=== PATIENT | male | born 1975 | race Caucasian/White ===

== ENCOUNTER 2019-02-14 23:52 | Observation (INO) | payer OTHER ==
[~2019-02-14] VITALS: Ht 182.9 cm; Wt 96.4 kg
--- NOTE | ~2019-02-14 | DS ---
[facility] [address], [place] [address] Draft ADMISSION DATE: 02/14/2019 DISCHARGE DATE: 02/17/2019 REASON FOR ADMISSION: This 43-year-old man presented to the emergency room late in the night with severe unrelenting left upper abdominal pain with onset only a few hours prior to his presentation to emergency room. He was evaluated by Dr. Aguirre. A CT scan, which showed internal hernia or volvulus of small bowel. The patient has complex past medical history of neurologic deficits, particularly of the right upper extremity related to cervical spine surgery in the past year at [facility] in the [facility]. During the course of his treatment, he developed C difficile colitis requiring emergent subtotal colectomy with ileostomy, subsequently undergoing takedown of the ileostomy to an ileosigmoid anastomosis. PHYSICAL EXAMINATION: GENERAL: This is a relatively thin man, who looks to be in moderate distress. CHEST: Clear. HEART: Regular. ABDOMEN: There was tenderness in the left upper abdomen. He had no ascites. A keloid like mid abdominal scar was noted. DIAGNOSTIC DATA: CT scan was reviewed showing a segmental volvulus in the left upper abdomen of small bowel. There was apparent absence of much of the colon except for the rectum and sigmoid. HOSPITAL COURSE: He was fluid resuscitated, given limited antibiotic of Ancef and Flagyl, and underwent emergency laparotomy at approximately 3 a.m. He was found to have an internal hernia with torsion of the small bowel and associated adhesions, which were minimal. A large mesenteric defect of small bowel and left colonic mesentery was noted, which contributed to the internal hernia. It is clear there was no attempt to close the mesenteric defect. An attempt to close the mesenteric defect at that point was impossible as the angulation of the ileum in relation to the colon for anastomosis was such that closure of the mesentery would result in torsion and obstruction of the anastomosis itself. On that basis, he underwent segmental resection of the small bowel and colon (the anastomosis) with an end-to-end ileo left colostomy. Closure of the mesenteric defect was then able to be undertaken and it was without problem. The remaining abdomen was essentially normal. PATIENT NAME: SHANE HORTON DISCHARGE SUMMARY DATE OF : 71 REPORT #: [id number] PHYSICIAN: SHANE BECKMAN MD PCP: RADHA SORIANO MD REPORT IS CONFIDENTIAL AND NOT TO BE RELEASED WITHOUT AUTHORIZATION [facility] [address], [place] [address] Draft He had prompt recovery following this. He was begun on clear liquid diets immediately, which he tolerated and was advanced as tolerated ultimately to solid diet, which he has tolerated well. He has had bowel movements. His incision was healing well. No drain was placed at the time of operation. By time of discharge, he was ambulating well, tolerating a regular diet, oral analgesics, and doing well. FOLLOWUP PLANS: He is to return to see [facility] in [facility] a [facility]. DISCHARGE MEDICATIONS: 1. Motrin 600 mg p.o. q.6 hours as needed for pain, #60. 2. Carlisle 5/325 1-2 p.o. q.6 hours as needed for pain, #10. 3. Tylenol Extra Strength 500 mg two tablets p.o. q.6 hours as needed for pain. He will resume his usual medications includin. Gabapentin 600 mg p.o. t.i.d. 2. Culturelle probiotic one p.o. t.i.d. 3. Omeprazole 20 mg p.o. daily. 4. Paxil 10 mg p.o. daily. 5. Benadryl 25 mg 1-2 caps t.i.d. as needed for allergies. DISCHARGE DIAGNOSES: 1. Acute torsion of small bowel related to large mesenteric defect of prior ileo left-sided anastomosis following subtotal colectomy and takedown of ileostomy. 2. Anxiety disorder. 3. Gastroesophageal reflux. 4. History of severe Clostridium difficile colitis requiring subtotal colectomy. MD TRISHA Perez/MARIELLEL /[id number] cc: MD Dr. Timothy Helms PATIENT NAME: SHANE HORTON DISCHARGE SUMMARY DATE OF : 71 REPORT #: [id number] PHYSICIAN: SHANE BECKMAN MD PCP: RADHA SORIANO MD REPORT IS CONFIDENTIAL AND NOT TO BE RELEASED WITHOUT AUTHORIZATION [facility] [address] [place] [address] [place], [place] [address] [place] [facility] Copies: DEL HOPKINS MD ~ PATIENT NAME: SHANE HORTON DISCHARGE SUMMARY DATE OF : 71 REPORT #: [id number] PHYSICIAN: SHANE BECKMAN MD PCP: RADHA SORIANO MD REPORT IS CONFIDENTIAL AND NOT TO BE RELEASED WITHOUT AUTHORIZATION
--- OUTSIDE RECORDS SUMMARY | ~2019-02-14 | XMS | Clinical Summary ---
Demographics + + + | Address | [address] [place] [address] | | | [place] [address] | + + + | Home Phone | | + + + | Preferred Language | Unknown | + + + | Marital Status | Unknown | + + + | Orthodox Affiliation | Unknown | + + + | Race | Unknown | + + + | Ethnic Group | Unknown | + + + Author + + + | Author | [facility] | | | and [place] | + + + | Organization | [facility] | | | and [place] | + + + | Address | Unknown | + + + | Phone | Unavailable | + + + Support + + +---------+ + | Name | Relationship | Address | Phone | + + +---------+ + | Provided None | ECON | Unknown | | + + +---------+ + Care Team Providers + +------+ + | Care Resident Care Assistant Name | Role | Phone | + +------+ + | No, Physician | PCP | Unavailable | + +------+ + Allergies No Known Allergies Medications + + + +---------+------+------+-------+ | Medication | Sig | Dispensed | Refills | Star | End | Statu | | | | | | t | Date | s | | | | | | Date | | | + + + +---------+------+------+-------+ | omeprazole | Take 20 mg by mouth | | 0 | 09/0 | | Activ | | (PRILOSEC) 20 mg | every morning before | | | 5/20 | | e | | capsule | breakfast. | | | 17 | | | + + + +---------+------+------+-------+ | nortriptyline | Take 25 mg by mouth | | 0 | 01/1 | | Activ | | (PAMELOR) 25 mg | nightly. | | | 8/20 | | e | | capsule | | | | 19 | | | + + + +---------+------+------+-------+ | capsaicin | Apply topically 2 | | 0 | 01/1 | | Activ | | (ZOSTRIX) 0.025% | (two) times daily. | | | 8/20 | | e | | cream | | | | 19 | | | + + + +---------+------+------+-------+ | tamsulosin | Take 1 capsule by | 30 | 0 | 03/0 | | Activ | | (FLOMAX) 0.4 mg CAPS | mouth After dinner. | capsule | | 5/20 | | e | | | | | | 19 | | | + + + +---------+------+------+-------+ +---+ + | | Additional | | | informationPatient | | | not taking. Reason: | | | not taking, Reported | | | on 02/01/2019 12:02 | | | PM | +---+ + + + +--------+---+------+------+-------+ | gabapentin | Take 1 tablet by | 60 | 0 | 03/0 | 03/0 | Activ | | (NEURONTIN) 600 MG | mouth 2 (two) times | tablet | | 5/20 | 4/20 | e | | tablet | daily. | | | 19 | 20 | | + + +--------+---+------+------+-------+ | traMADol (ULTRAM) | Take 50 mg by mouth | | 0 | 05/2 | | Activ | | 50 mg tablet | every 6 (six) hours | | | 9/20 | | e | | | as needed for Pain. | | | 19 | | | + + +--------+---+------+------+-------+ | baclofen | Take 10 mg by mouth | | 0 | 05/2 | | Activ | | (LIORESAL) 10 mg | 3 (three) times | | | 9/20 | | e | | tablet | daily. | | | 19 | | | + + +--------+---+------+------+-------+ | diphenhydrAMINE | Take 50 mg by mouth | | 0 | | | Activ | | (BENADRYL) 50 mg | every 6 hours as | | | | | e | | capsule | needed for Itching. | | | | | | + + +--------+---+------+------+-------+ Active Problems + + + | Problem | Noted Date | + + + | Sepsis | 04/24/2018 | + + + | Infectious colitis | 04/24/2018 | + + + | Cervical myelopathy | 04/21/2018 | + + + | S/P laminectomy | 04/21/2018 | + + + | DDD (degenerative disc disease), cervical | 11/04/2016 | + + + | Muscle weakness of upper extremity | 11/04/2016 | + + + | Bilateral carpal tunnel syndrome | 08/26/2016 | + + + Encounters +--------+ + + + + | Date | Type | Specialty | Care Team | Description | +--------+ + + + + | 02/01/ | Hospital | Radiology | Tawana Gan, | Weakness; Muscle | | 2018 | Encounter | | REGISTERED NURSE TEACHER | weakness | | | | | | (generalized); | | | | | | Acquired diplegia | | | | | | (HCC) | +--------+ + + + + | 02/01/ | Hospital | Radiology | Tawana Gan, | Weakness; Muscle | | 2018 | Encounter | | REGISTERED NURSE TEACHER 1, [facility] | weakness | | | | | Nurse Radiologist, | (generalized); | | | | | [facility] | Acquired diplegia | | | | | | (HCC) | +--------+ + + + + | 01/31/ | Telephone | Radiology | Tamica Nguyen, | | | 2018 | | | RN | | +--------+ + + + + from Last 3 Months Immunizations + + + + | Name | Administration Dates | Next Due | + + + + | INFLUENZA PF | 04/22/2018 | | | QUAD(PED/ADOL/ADULT) | | | | ,PSKT or VIAL | | | + + + + | PNEUMOCOCCAL | 04/20/2018 | | | POLYSACCHARIDE | | | | 23-VALENT (PPSV23) | | | + + + + Family History + + +------+ + | Medical History | Relation | Name | Comments | + + +------+ + | Other (see comment) | Father | | Other (see comments) - Brain tumor | + + +------+ + | Cancer | Other | | | + + +------+ + | Diabetes | Other | | | + + +------+ + + +------+ + + | Relation | Name | Status | Comments | + +------+ + + | Father | | | | + +------+ + + | Mother | | Alive | | + +------+ + + | Other | | | | + +------+ + + | Other | | | | + +------+ + + Social History + +-------+ +--------+------+ | Tobacco Use | Types | Packs/Day | Years | Date | | | | | Used | | + +-------+ +--------+------+ | Former Smoker | | | | | + +-------+ +--------+------+ + +---+---+---+ | Smokeless Tobacco: | | | | | Former User | | | | + +---+---+---+ + + | Comments: quit 2001 | + + + + +---------+ + | Alcohol Use | Drinks/Week | oz/Week | Comments | + + +---------+ + | Not Currently | | | | + + +---------+ + + + + | Sex Assigned at | Date Recorded | | | | + + + | Not on file | | + + + + + + + | Job Start Date | Occupation | Industry | + + + + | Not on file | Not on file | Not on file | + + + + + + + + | Travel History | Travel Start | Travel End | + + + + + + | No recent travel history available. | + + Last Filed Vital Signs + + + + + | Vital Sign | Reading | Time Taken | Comments | + + + + + | Blood Pressure | 109/68 | 02/01/2019 2:00 PM | | | | | PST | | + + + + + | Pulse | 74 | 02/01/2019 2:00 PM | | | | | PST | | + + + + + | Temperature | 36.8 C (98.2 F) | 02/01/2019 11:50 AM | | | | | PST | | + + + + + | Respiratory Rate | 16 | 02/01/2019 2:00 PM | | | | | PST | | + + + + + | Oxygen Saturation | 100% | 02/01/2019 2:00 PM | | | | | PST | | + + + + + | Inhaled Oxygen | - | - | | | Concentration | | | | + + + + + | Weight | 91.9 kg (202 lb 9.6 | 10/18/2018 4:58 AM | | | | oz) | PDT | | + + + + + | Height | 182.9 cm (6') | 10/17/2018 9:52 AM | | | | | PDT | | + + + + + | Body Mass Index | 27.48 | 10/17/2018 9:52 AM | | | | | PDT | | + + + + + Plan of Treatment + + + + + | Health Maintenance | Due Date | Last Done | Comments | + + + + + | Vaccine: | | | | | Dtap/Tdap/Td (1 - | 3 | | | | Tdap) | | | | + + + + + | Statin Therapy | | | | | (optimal intensity) | 9 | | | + + + + + | Vaccine: Influenza | Completed | 01/02/2019, 04/22/2018 | | + + + + + Implants + +------+--------+ +--------+--------+--------+ | Implanted | Type | Area | Manufacture | Device | Shelf | Model | | | | | r | | Expira | / | | | | | | Identi | tion | Serial | | | | | | fier | Date | / Lot | + +------+--------+ +--------+--------+--------+ | End CapImplanted: Qty: 1 on | | N/A: | [employer] - | | 08/11/ | [id number] | | 11/27/2016 by Douglas Logan, | | Spine | MEDT | | 2024 | 4 / | | DO | | Cervic | | | | [id number] | | | | al | | | | 583 | + +------+--------+ +--------+--------+--------+ | End CapImplanted: Qty: 1 on | | N/A: | [employer] - | | 09/07/ | [id number] | | 11/27/2016 by Douglas Logan, | | Spine | MEDT | | 2024 | 4 / | | DO | | Cervic | | | | /[id number] | | | | al | | | | 151 | + +------+--------+ +--------+--------+--------+ | Algrft Bone Dbm Putty Dbx | | N/A: | MTF - | | 07/28/ | [id number] | | 1.0c - | | Spine | SYNTHES - | | 2019 | | | [id number]: | | Cervic | MTFS | | | [id number] | | Qty: 1 on 11/27/2016 by | | al | | | | [id number] | | Douglas Logan DO | | | | | | [id number] | | | | | | | | 3 / | + +------+--------+ +--------+--------+--------+ | Plate Francisco V-Elite 37.5 2l | | N/A: | [employer] - | | | [id number] | | Cerv - [id number]: | | Spine | MEDT | | | 7 / / | | Qty: 1 on 11/27/2016 by | | Cervic | | | | | | Douglas Logan DO | | al | | | | | + +------+--------+ +--------+--------+--------+ | Screw Slf-Drl V/A 4.0x14mm - | | N/A: | [employer] - | | | [id number] | | [id number]: Qty: 2 on | | Spine | MEDT | | | 4 / / | | 11/27/2016 by Doreen, | | Cervic | | | | | | DO Douglas | | al | | | | | + +------+--------+ +--------+--------+--------+ | Screw Slf-Drl V/A 4.0x15mm - | | N/A: | [employer] - | | | [id number] | | [id number]: Qty: 2 on | | Spine | MEDT | | | 5 / | | 11/27/2016 by Doreen, | | Cervic | | | | | | DO Douglas | | al | | | | | + +------+--------+ +--------+--------+--------+ | Screw Slf-Drl V/A 4.0x16mm - | | N/A: | [employer] - | | | [id number] | | [id number]: Qty: 2 on | | Spine | MEDT | | | / | | 11/27/2016 by Doreen, | | Cervic | | | | | | DO Douglas | | al | | | | | + +------+--------+ +--------+--------+--------+ Procedures + +--------+ + + + | Procedure Name | Priori | Date/Time | Associated Diagnosis | Comments | | | ty | | | | + +--------+ + + + | CT MYELOGRAPHY | Routin | 02/01/2019 | Weakness Muscle | Results for this | | CERVICAL SPINE | e | 1:56 PM | weakness | procedure are in the | | | | PST | (generalized) | results section. | | | | | Acquired diplegia | | | | | | (HCC) | | + +--------+ + + + | FL MYELOGRAM | Routin | 02/01/2019 | Weakness Muscle | Results for this | | CERVICAL | e | 1:50 PM | weakness | procedure are in the | | | | PST | (generalized) | results section. | | | | | Acquired diplegia | | | | | | (HCC) | | + +--------+ + + + | CBC NO DIFFERENTIAL | STAT | 02/01/2019 | | Results for this | | | | 11:43 AM | | procedure are in the | | | | PST | | results section. | + +--------+ + + + | PROTIME INR | STAT | 02/01/2019 | | Results for this | | | | 11:43 AM | | procedure are in the | | | | PST | | results section. | + +--------+ + + + | PTT | STAT | 02/01/2019 | | Results for this | | | | 11:43 AM | | procedure are in the | | | | PST | | results section. | + +--------+ + + + from Last [address] Myelography Cervical Spine (02/01/2019 1:56 PM PST) + + | Specimen | + + | | + + + + + | Impressions | Performed At | + + + | 1. Postsurgical change with anterior fusion and posterior | [facility] | | decompressive laminectomies at C5-6 and C6-7. 2. Posterior disc spur | | | complex asymmetric to the left side that narrows the left lateral | | | recess causing severe left neural foraminal narrowing. Correlate for | | | impingement exiting left C5 nerve root. 3. No central canal stenosis. | | | Signed by: Pineda Ruiz Chet Sign Date/Time: | | | 02/01/2019 4:50 PM | | + + + + + + | Narrative | Performed At | + + + | CT CERVICAL SPINE POST MYELOGRAM CLINICAL INFORMATION: | [facility] | | Muscle weakness (generalized) Acquired diplegia COMPARISON: MRI | | | cervical spine dated 04/19/2018. PROCEDURE: Axial CT sections were | | | obtained through the cervical spine soon after a fluoroscopic | | | myelogram. Additional reformations were performed. At least one of | | | the following CT dose optimization techniques were used: Automated | | | exposure control; Adjustment of mA and/or kV according to patient | | | size; Use of iterative reconstruction technique. FINDINGS: | | | Alignment: Straightening of the normal cervical lordosis. | | | Vertebra: Vertebral heights are maintained. Negative for fracture. | | | Anterior plate and screws fixating C5-6 and C6-7 with mature | | | interbody fusion. Cervical cord: The cervical cord appears of | | | normal caliber. The abnormal signal seen within the cord by MRI is | | | not able to be evaluated by CT. Cranial cervical junction is | | | normal. Disc spaces: C2-C3: Moderate disc space narrowing with | | | mild endplate spurring. Minimal posterior disc spur complex with | | | uncovertebral joint hypertrophy causing mild bilateral neural | | | foraminal narrowing. No central canal stenosis. C3-C4: Mild | | | disc space narrowing. Small central disc protrusion with mild | | | uncovertebral joint hypertrophy without central canal stenosis. | | | Bilateral neural foramina appear patent. C4-C5: Moderate severe | | | disc space narrowing with degenerative endplate change endplate | | | spurring. Posterior disc spur complex asymmetric to the left side | | | causing severe left and mild to moderate right neural foraminal | | | narrowing. Focal density in the left lateral recess which may | | | represent a disc protrusion or may be possibly neural or vascular in | | | nature (series 3, image 76). No central canal stenosis. C5-C6: | | | Postsurgical change with anterior fusion and posterior decompressive | | | laminectomies. Ohok-jp-dokhtxcv bilateral neural foraminal | | | narrowing. No central canal stenosis. C6-C7: Postsurgical change | | | with anterior fusion and posterior decompressive laminectomy. | | | Gynm-rp-sxmmmlmc bilateral neural foraminal narrowing. No central | | | canal stenosis. C7-T1: Moderate disc space narrowing with | | | endplate spurring. No central canal stenosis or neural foraminal | | | narrowing | | + + + + + | Procedure Note | + + | Ronny, Rad Results In - 02/01/2019 4:54 PM PST | | CT CERVICAL SPINE POST MYELOGRAM | | | | CLINICAL INFORMATION: | | Muscle weakness (generalized) | | Acquired diplegia | | | | COMPARISON: | | MRI cervical spine dated 04/19/2018. | | | | PROCEDURE: | | Axial CT sections were obtained through the cervical spine soon after a | | fluoroscopic myelogram. Additional reformations were performed. | | | | At least one of the following CT dose optimization techniques were | | used: Automated exposure control; Adjustment of mA and/or kV according | | to patient size; Use of iterative reconstruction technique. | | | | FINDINGS: | | Alignment: Straightening of the normal cervical lordosis. | | | | Vertebra: Vertebral heights are maintained. Negative for fracture. | | Anterior plate and screws fixating C5-6 and C6-7 with mature interbody | | fusion. | | | | Cervical cord: The cervical cord appears of normal caliber. The | | abnormal signal seen within the cord by MRI is not able to be evaluated | | by CT. Cranial cervical junction is normal. | | | | Disc spaces: | | C2-C3: Moderate disc space narrowing with mild endplate spurring. | | Minimal posterior disc spur complex with uncovertebral joint | | hypertrophy causing mild bilateral neural foraminal narrowing. No | | central canal stenosis. | | | | C3-C4: Mild disc space narrowing. Small central disc protrusion with | | mild uncovertebral joint hypertrophy without central canal stenosis. | | Bilateral neural foramina appear patent. | | | | C4-C5: Moderate severe disc space narrowing with degenerative endplate | | change endplate spurring. Posterior disc spur complex asymmetric to | | the left side causing severe left and mild to moderate right neural | | foraminal narrowing. Focal density in the left lateral recess which | | may represent a disc protrusion or may be possibly neural or vascular | | in nature (series 3, image 76). No central canal stenosis. | | | | C5-C6: Postsurgical change with anterior fusion and posterior | | decompressive laminectomies. Eape-qo-lczpkaua bilateral neural | | foraminal narrowing. No central canal stenosis. | | | | C6-C7: Postsurgical change with anterior fusion and posterior | | decompressive laminectomy. Jcgi-of-zjbvpbul bilateral neural foraminal | | narrowing. No central canal stenosis. | | | | C7-T1: Moderate disc space narrowing with endplate spurring. No | | central canal stenosis or neural foraminal narrowing | | | | IMPRESSION: | | 1. Postsurgical change with anterior fusion and posterior decompressive | | laminectomies at C5-6 and C6-7. | | 2. Posterior disc spur complex asymmetric to the left side that narrows | | the left lateral recess causing severe left neural foraminal narrowing. | | Correlate for impingement exiting left C5 nerve root. | | 3. No central canal stenosis. | | | | | | | | | | Signed by: Pineda Ruiz Chet | | Sign Date/Time: 02/01/2019 4:50 PM | + + + +---------+ + + | Performing | Address | City/State/Zipcode | Phone Number | | Organization | | | | + +---------+ + + | [facility] | | | | + +---------+ + + FL Myelogram Cervical (02/01/2019 1:50 PM PST) + + | Specimen | + + | | + + + + + | Impressions | Performed At | + + + | Technically successful intrathecal injection of contrast for CT | [facility] | | cervical myelogram. Please see the CT report for further details. | | | Signed by: Pineda Ruiz Chet Sign Date/Time: 02/01/2019 3:03 | | | PM | | + + + + + + | Narrative | Performed At | + + + | CERVICAL MYELOGRAM UNDER FLUOROSCOPIC GUIDANCE CLINICAL | [facility] | | INFORMATION: Weakness. COMPARISON: MRI cervical spine dated | | | 04/12/2018 PROCEDURE: After informed consent was obtained | | | including discussion of the risks, the patient was prepped and draped | | | in the usual sterile manner and 1% lidocaine was used for local | | | anesthesia of the skin and soft tissues. A 22 needle was advanced | | | under fluoroscopic guidance into the L3-4 level with spontaneous flow | | | of CSF demonstrated. 8 ml of Omnipaque 300 was injected under | | | fluoroscopic guidance and the needle was removed. Fluoroscopic spot | | | images were obtained. The patient was then brought to the CT scan | | | area in stable condition. After the CT scan, the patient was | | | brought to the post procedural area in stable condition and tolerated | | | the procedure well. Complications: No immediate complications | | | evident. 1.7 minute(s) of fluoroscopy time was used for this | | | exam. Number of images: 6 Air Kerma: 58.5 mGy FINDINGS: Anterior | | | plate and screws seen fixating C5-6 and C6-7. Moderate to severe | | | disc space narrowing with endplate spurring at C4-5 with mild disc | | | space narrowing at C3-4. | | + + + + + | Procedure Note | + + | Ronny, Rad Results In - 02/01/2019 3:06 PM PST | | CERVICAL MYELOGRAM UNDER FLUOROSCOPIC GUIDANCE | | | | CLINICAL INFORMATION: | | Weakness. | | | | COMPARISON: | | MRI cervical spine dated 04/12/2018 | | | | PROCEDURE: | | After informed consent was obtained including discussion of the risks, | | the patient was prepped and draped in the usual sterile manner and 1% | | lidocaine was used for local anesthesia of the skin and soft tissues. A | | 22 needle was advanced under fluoroscopic guidance into the L3-4 level | | with spontaneous flow of CSF demonstrated. 8 ml of Omnipaque 300 was | | injected under fluoroscopic guidance and the needle was removed. | | Fluoroscopic spot images were obtained. | | | | The patient was then brought to the CT scan area in stable condition. | | | | After the CT scan, the patient was brought to the post procedural area | | in stable condition and tolerated the procedure well. | | | | Complications: No immediate complications evident. | | | | 1.7 minute(s) of fluoroscopy time was used for this exam. Number of | | images: 6 Air Kerma: 58.5 mGy | | | | FINDINGS: | | Anterior plate and screws seen fixating C5-6 and C6-7. Moderate to | | severe disc space narrowing with endplate spurring at C4-5 with mild | | disc space narrowing at C3-4. | | | | IMPRESSION: | | Technically successful intrathecal injection of contrast for CT | | cervical myelogram. Please see the CT report for further details. | | | | | | | | Signed by: Pineda Ruiz Chet | | Sign Date/Time: 02/01/2019 3:03 PM | + + + +---------+ + + | Performing | Address | City/State/Zipcode | Phone Number | | Organization | | | | + +---------+ + + | [facility] | | | | + +---------+ + + PTT (02/01/2019 11:43 AM PST) + + + + + + | Component | Value | Ref Range | Performed | Pathologist | | | | | At | Signature | + + + + + + | PTT | 26Comment: Testing | 23 - 32 seconds | [facility] | | | | performed at [place];[address] | | LABORATORY | | | | [address];[place] | | | | | | [address] | | | | + + + + + + + + | Specimen | + + | Blood | + + + + + + + | Performing | Address | City/State/Zipcode | Phone Number | | Organization | | | | + + + + + | [facility] | [address] | [place] [address] | [phone] | + + + + + [place] (02/01/2019 11:43 AM PST) + + + + + + | Component | Value | Ref Range | Performed | Pathologist | | | | | At | Signature | + + + + + + | INR | 1.0Comment: REFERENCE | | [facility] | | | | RANGE:0.9 - 1.2 | | LABORATORY | | | | NON-ANTICOAGULATED2.0 | | | | | | - 3.0 ALL OTHER | | | | | | THERAPEUTIC | | | | | | INDICATIONS2.5 - 3.5 | | | | | | MECHANICAL HEART VALVES, | | | | | | RECURRENT OR SYSTEMIC | | | | | | EMBOLISMTesting | | | | | | performed at [place];[address] | | | | | | [address];[place], [place] | | | | | | [address] | | | | + + + + + + + + | Specimen | + + | Blood | + + + + + + + | Performing | Address | City/State/Zipcode | Phone Number | | Organization | | | | + + + + + | [facility] | [address] | [place] [address] | [phone] | + + + + + CBC no Differential (02/01/2019 11:43 AM PST) + + + + + + | Component | Value | Ref Range | Performed | Pathologist | | | | | At | Signature | + + + + + + | WBC | 4.44 | 3.80 - 11.00 | [facility] | | | | | K/uL | LABORATORY | | + + + + + + | RBC | 3.95 (L) | 4.20 - 5.70 | [facility] | | | | | M/uL | LABORATORY | | + + + + + + | Hemoglobin | 8.2 (L) | 13.2 - 17.0 | [facility] | | | | | g/dL | LABORATORY | | + + + + + + | Hematocrit | 27.3 (L) | 39.0 - 50.0 % | [facility] | | | | | | LABORATORY | | + + + + + + | MCV | 69.2 (L) | 80.0 - 100.0 fl | [facility] | | | | | | LABORATORY | | + + + + + + | MCH | 20.7 (L) | 27.0 - 34.0 pg | [facility] | | | | | | LABORATORY | | + + + + + + | MCHC | 29.9 (L) | 32.0 - 35.5 | [facility] | | | | | g/dL | LABORATORY | | + + + + + + | RDW-SD | 42.0 | 37 - 53 fl | [facility] | | | | | | LABORATORY | | + + + + + + | Platelet | 448 (H) | 150 - 400 K/uL | [facility] | | | Count | | | LABORATORY | | + + + + + + | MPV | 7.0Comment: Testing | fl | [facility] | | | | performed at [place];[address] | | LABORATORY | | | | [address];[place] | | | | | | [address] | | | | + + + + + + + + | Specimen | + + | Blood | + + + + + + + | Performing | Address | City/State/Zipcode | Phone Number | | Organization | | | | + + + + + | [facility] | [address] | [place] [address] | [phone] | + + + + + from Last 3 Months Insurance + +--------+ +--------+-------+---------+--------+ | Payer | Benefi | Subscriber | Effect | Phone | Address | Type | | | t Plan | ID | aguila | | | | | | / | | Dates | | | | | | Group | | | | | | + +--------+ +--------+-------+---------+--------+ | DEPARTMENT OF | CORRCT | [id number] | 05/05/19 | | | Indemn | | CORRECTIONS | NL | | 19-Pre | | | ity | | | HLTH | | sent | | | | | | FIRST | | | | | | | | [place] | | | | | | + +--------+ +--------+-------+---------+--------+ + +--------+ +--------+ + + | Guarantor Name | Accoun | Relation to | Date | Phone | Billing Address | | | t Type | Patient | of | | | | | | | | | | + +--------+ +--------+ + + | [employer] | Corpor | Non | [birth year]07/ | | [address] | | [place] | ate | Relative | 1921 | [phone] | [place] [address] | | | | | | 9 (Home) | | | | | | | [phone] | | | | | | | 0 (Work) | | + +--------+ +--------+ + + Advance Directives + + + + + | Type | Date Recorded | Patient | Explanation | | | | Firewall Administrator | | + + + + + | Power of | | | | | Advertising Manager | | | | + + + + + | Advance | 10/17/2018 10:56 | | | | Directive | AM | | | + + + + + + + + + + | Code Status | Date | Date | Comments | | | Activated | Inactivated | | + + + + + | Full Code | 10/17/2018 | 10/19/2018 | | | | 3:51 PM | 3:28 PM | | + + + + +"
--- OUTSIDE RECORDS SUMMARY | ~2019-02-14 | XMS | Clinical Summary ---
Demographics + + + | Address | [address] [place] [address] | | | [place] [address] | + + + | Home Phone | | + + + | Preferred Language | Unknown | + + + | Marital Status | Unknown | + + + | Adventist Affiliation | Unknown | + + + [...] Team Providers + +------+ + | Care Senior Quality Assurance Analyst Name | Role | Phone | + [...] | | 2018 | Encounter | | CERTIFIED MASTER SAFECRACKER | weakness | | | | | | (generalized); | | | | | | Acquired diplegia | | | | | | (HCC) | +--------+ + + + + | 02/01/ | Hospital | Radiology | Tawana Gan, | Weakness; Muscle | | 2018 | Encounter | | CERTIFIED MASTER SAFECRACKER 1, [facility] | weakness | | | | | Nurse Radiologist, | (generalized); | | | | | [facility] | Acquired diplegia [...] | [facility] - | | 08/11/ | [id number] | | 11/27/2016 by Douglas Logan, | | Spine | MEDT | | 2024 | 4 / | | DO | | Cervic | | | | [id number] | | | | al | | | | 583 | + +------+--------+ +--------+--------+--------+ | End CapImplanted: Qty: 1 on | | N/A: | [facility] - | | 09/07/ | [id number] | | 11/27/2016 by Douglas Logan, | | Spine | MEDT | | 2024 | 4 / | | DO | | Cervic | | | | /[id number] | | | | al | | | | 151 | + +------+--------+ +--------+--------+--------+ | Algrft Bone Dbm Putty Dbx | | N/A: | MTF - | | 07/28/ | [id number] | | 1.0c - | | Spine | SYNTHES - | | 2019 | | | [id number]: | | Cervic | MTFS | | | /[id number] | | Qty: 1 on 11/27/2016 by | | al | | | | [id number] | | Douglas Logan DO | | | | | | [id number] | | | | | | | | 3 / | + +------+--------+ +--------+--------+--------+ | Plate Francisco V-Elite 37.5 2l | | N/A: | [facility] - | | | [id number] | | Cerv - [id number]: | | Spine | MEDT | | | 7 / / | | Qty: 1 on 11/27/2016 by | | Cervic | | | | | | Douglas Logan DO | | al | | | | | + +------+--------+ +--------+--------+--------+ | Screw Slf-Drl V/A 4.0x14mm - | | N/A: | [facility] - | | | [id number] | | [id number]: Qty: 2 on | | Spine | MEDT | | | 4 / / | | 11/27/2016 by Doreen, | | Cervic | | | | | | DO Douglas | | al | | | | | + +------+--------+ +--------+--------+--------+ | Screw Slf-Drl V/A 4.0x15mm - | | N/A: | [facility] - | | | [id number] | | [id number]: Qty: 2 on | | Spine | MEDT | | | 5 / | | 11/27/2016 by Doreen, | | Cervic | | | | | | DO Douglas | | al | | | | | + +------+--------+ +--------+--------+--------+ | Screw Slf-Drl V/A 4.0x16mm - | | N/A: | [facility] - | | | [id number] | | [id number]: Qty: 2 on | | Spine | [...] and posterior decompressive | | | laminectomies. Yknp-cd-ywcpydys bilateral neural foraminal | | | narrowing. No central canal stenosis. C6-C7: Postsurgical change | | | with anterior fusion and posterior decompressive laminectomy. | | | Khez-zx-veomkoks bilateral neural foraminal narrowing. No central | [...] fusion and posterior | | decompressive laminectomies. Wgcq-kt-kktiwgxg bilateral neural | | foraminal narrowing. No central canal stenosis. | | | | C6-C7: Postsurgical change with anterior fusion and posterior | | decompressive laminectomy. Dbmi-cj-dnduhovz bilateral neural foraminal | | narrowing. No [...] [facility] | | | | performed at [facility];[address] | | LABORATORY | | | | [address]aj[address];[place] | | | | | | [address] | | | | + + + + + + + + | Specimen | + + | Blood | + + + + + + + | Performing | Address | City/State/Zipcode | Phone Number | | Organization | | | | + + + + + | [facility] | [address] | [place] [address] | [phone] | + + + + + El OWENS (02/01/2019 11:43 AM PST) + + + + + + | Component | Value | Ref Range | Performed | Pathologist | | | | | At | Signature | + + + + + + | INR | 1.0Comment: REFERENCE | | [facility] | | | | RANGE:0.9 - [...] | | | | | performed at [facility];[address] | | | | | | [address];[place], [place] | | | | | | [address] | | | | + + + + + + + + | Specimen | + + | Blood | + + + + + + + | Performing | Address | City/State/Zipcode | Phone Number | | Organization | | | | + + + + + | [facility] | [address] | [place] [address] | [phone] | + + + + + CBC [...] [facility] | | | | performed at [facility];[address] | | LABORATORY | | | | [address];[place] | | | | | | [address] | | | | + + + + + + + + | Specimen | + + | Blood | + + + + + + + | Performing | Address | City/State/Zipcode | Phone Number | | Organization | | | | + + + + + | [facility] | [address] | [place] [address] | [phone] | + + + + + from [...] +--------+-------+---------+--------+ | DEPARTMENT OF | CORRCT | [id number] | 05/05/19 | | | Indemn | [...] | ate | Relative | 1921 | [phone] | [place] [address] | | | | | | 9 (Home) | | | | | | | [phone] | | | | | | | 0 (Work) | | + +--------+ +--------+ + + Advance Directives + + + + + | Type | Date Recorded | Patient | Explanation | | | | Marinator | | + + + + + | Power of | | | | | Tire Beader Maker | | | | + + + [...]
--- OUTSIDE RECORDS SUMMARY | ~2019-02-14 | XMS | Encounter Summary ---
Demographics + + + | Address | [address] [place] [address] | | | [place] [address] | + + + | Home Phone | | + + + | Preferred Language | Unknown | + + + | Marital Status | Unknown | + + + | Synagogue Affiliation | Unknown | + + + | Race | Unknown | + + + | Ethnic Group | Unknown | + + + Author + + + | Author | [facility] | | | and [place] | + + + | Organization | [facility] | | | and [...] Team Providers + +------+ + | Care Pet Ambassador Name | Role | Phone | + +------+ + | No, Physician | PCP | Unavailable | + +------+ + Encounter Details +--------+ + + + + | Date | Type | Department | Care Team | Description | +--------+ + + + + | 01/31/ | Telephone | [facility] | Tamica Nguyen, | | | 2018 | | [facility] | RN | | | | | [address] | | | | | | [place], [place] | | | | | | [address] | | | | | | [phone] | | | +--------+ + + + + Social History + +-------+ +--------+------+ | Tobacco Use | Types | Packs/Day | Years | Date | | | | | Used | | + +-------+ +--------+------+ | Former Smoker | | | | | + +-------+ +--------+------+ + +---+---+---+ | Smokeless Tobacco: | | | | | Former User | | | | + +---+---+---+ + + | Comments: quit 2002 | + + + + +---------+ + [...] recent travel history available. | + + documented as of this encounter Plan of Treatment Not on filedocumented as of this encounter Visit Diagnoses Not on filedocumented in this encounter"
--- OUTSIDE RECORDS SUMMARY | ~2019-02-14 | XMS | Encounter Summary ---
Demographics + + + | Address | [address] [place] [address] | | | [place] [address] | + + + | Home Phone | | + + + | Preferred Language | Unknown | + + + | Marital Status | Unknown | + + + | Yarsanism Affiliation | Unknown | + + + | Race | Unknown | + + + | Ethnic Group | Unknown | + + + Author + + + | Author | [facility] | | | and [place] | + + + | Organization | [facility] | | | [...] Team Providers + +------+ + | Care Bench Examiner Name | Role | Phone | + +------+ + | No, Physician | PCP | Unavailable | + +------+ + Reason for Visit Auth/Cert +--------+--------+ + + + + | Status | Reason | Specialty | Diagnoses / | Referred By | Referred To | | | | | Procedures | Contact | Contact | +--------+--------+ + + + + | | | | Diagnoses | | | | | | | Infectious | | | | | | | colitis | | | | | | | Procedures | | | | | | | ILEOSTOMY | | | | | | | REVISION | | | +--------+--------+ + + + + Encounter Details +--------+ + + + + | Date | Type | Department | Care Team | Description | +--------+ + + + + | 10/17/ | Anesthesia | [facility] | Yaritza Oliveros | | | 2019 | Event | [facility] | K, DIRECTOR CLOUD TRANSFORMATION [address] | | | | | [address] [place], [place] | | | | | [facility] | [address] | | | | | [place], [place] | | | | | | [address] | | | | | | [phone] | | | +--------+ + + + + Anesthesia Record + + + + + | Procedure Name | Responsible | Anesthesia Start | Anesthesia Stop Time | | | Anesthesiologist | Time | | + + + + + | ILEOSTOMY REVISION | Yaritza Oliveros, | 10/17/18 1201 | 10/17/18 1332 | | (N/A Abdomen) | DIRECTOR CLOUD TRANSFORMATION | | | + + + + + +----+---+ + + | Da | T | Event | Comment | | te | i | | | | | m | | | | | e | | | +----+---+ + + | 08 | 1 | An Start | Reassessment prior to anesthesia induction/procedure. | | /1 | 2 | | | | 9/ | 0 | | | | 20 | 1 | | | | 19 | | | | +----+---+ + + | | 1 | Quick Note | Patient moved self to OR table. Patient expresses comfort with | | | 2 | | position and orientation. Patient expresses comfort with head and | | | 0 | | neck. All ASA monitors applied. Pre-Oxygenation started. | | | 2 | | | +----+---+ + + | | 1 | An | | | | 2 | Induction | | | | 0 | | | | | 5 | | | +----+---+ + + | | 1 | An | ETT placed without difficulty or complication. Head and neck | | | 2 | Intubation | remained entirely neutral with use of the glidescope. Atraumatic | | | 0 | | placement. Teeth and other structures left unharmed and intact. | | | 6 | | | +----+---+ + + | | 1 | Antibiotic | | | | 2 | Given | | | | 1 | | | | | 0 | | | +----+---+ + + | | 1 | First | | | | 2 | Inc/Proc St | | | | 3 | | | | | 1 | | | +----+---+ + + | | 1 | Extubation/ | | | | 3 | Airway LDA | | | | 1 | Removal | | | | 6 | | | +----+---+ + + | | 1 | Quick Note | Transport | | | 3 | | | | | 2 | | | | | 3 | | | +----+---+ + + | | 1 | An Stop | Patient handed off to recovery nurse. | | | 3 | | | | | 2 | | | +----+---+ + + +------+ | Meds | +------+ + + + | Name | Total | + + + | fentaNYL | 200 mcg | + + + | lidocaine 2% | 60 mg | + + + | propofol | 200 mg | + + + | rocuronium | 50 mg | + + + | dexamethasone | 8 mg | + + + | ondansetron | 4 mg | + + + | neostigmine | 4 mg | + + + | glycopyrrolate | 0.6 mg | + + + | ertapenem (INVanz) 1 g in sodium | 1 g | | chloride 0.9% 50 mL IVPB | | + + + | balanced electrolytes in water - | 1,000 mL | | pH 7.4 (NORMOSOL-R pH | | | 7.4/PLASMALYTE-A) infusion | | + + + + + | Name | + + | N2O Flow Rate (L/Min) | + + | O2 Flow Rate (L/Min) | + + | Insp O2 | + + | Exp N2O | + + | Exp SEV | + + | Exp HERBERTH | + + | Air Flow Rate (L/Min) | + + + + | No blood administrations on file. | + + +--------+ + + + | Type | Details | Placement | Removal | +--------+ + + + | Wound | 10/17/18; 1347; Incision; | 10/17/18 1347 by | | | | abdomen; [email or web address]. Aquacel | Michaela Ayoub, | | | | | RN | | +--------+ + + + | Periph | 10/17/18; 1040; Right; Forearm; | 10/17/18 1040 by Bill | 10/19/18 1220 by | | eral | jfnj-xws-oesjoh catheter system; | Angelica Hernandez | Pam Gamino | | IV | 18 gauge; Blood Bank; 3; Left arm | David Palmer, RAFIA | RAFIA Maharaj | | | and hand x1; distraction, | | | | | tolerated well, appears | | | | | comfortable; no longer indicated; | | | | | expected removal post discharge; | | | | | 10/19/18; 1220 | | | +--------+ + + + | Airway | Placement Date: 10/17/18; | 10/17/18 1206 by | 10/17/18 1316 by | | | Placement Time: 1206 (created via | Yaritza Oliveros, | Yaritza Oliveros, | | | procedure documentation); Mask | DIRECTOR CLOUD TRANSFORMATION | DIRECTOR CLOUD TRANSFORMATION | | | Ventilation: N/A; Airway Grade: | | | | | 1; Successful Technique: video | | | | | scope; Laryngoscope Blade Size: | | | | | 3; Attempts: 1; Airway Type: | | | | | endotracheal; Size: 7.5; Airway | | | | | Tube Secured At: 21; Trauma: | | | | | none; Other Equipment: stylette; | | | | | Placement Check: exhaled CO2 | | | | | detection device, video | | | | | laryngoscope, bilateral chest | | | | | rise, breath sounds equal | | | | | bilaterally; Removal Date: | | | | | 10/17/18; Removal Time: 1316 | | | +--------+ + + + | Urethr | 10/17/18; 1229; indicated due to | 10/17/18 1229 by | 10/17/18 1314 by | | al | specific surgical procedure; | Michaela A [place], | Michaela A [place], | | Cathet | Perineum cleaned, Second person | RN | RN | | er | present; All elements; 100% | | | | | silicone; 16; None; 1; 10; | | | | | urethral catheter removed; | | | | | 10/17/18; 1314 | | | +--------+ + + + documented in this encounter Social History + +-------+ +--------+------+ | Tobacco [...] Not on filedocumented as of this encounter Procedures + +--------+ + + + | Procedure Name | Priori | Date/Time | Associated Diagnosis | Comments | | | ty | | | | + +--------+ + + + | ANE AIRWAY NOTE | Routin | 10/17/2018 | | Results for this | | | e | 12:20 PM | | procedure are in the | | | | PDT | | results section. | + +--------+ + + + documented in this encounter Results Airway (10/17/2018 12:20 PM PDT) + + + | Narrative | Performed At | + + + | Yaritza Oliveros CRNA 10/17/2018 12:51 Anesthesia Airway | | | Placement 10/17/2018 12:06 Preprocedure check: patient identified, | | | suction, oxygen, airway equipment checked, airway assessed and | | | patient reassessment prior to induction Rapid Sequence Induction: no | | | Mask ventilation: N/A Successful technique: videoscope | | | Laryngoscope blade size: 3 Airway grade: 1 (Full view of glottis) | | | Other equipment: stylette Attempts: 1 Airway type: endotracheal | | | Size: 7.5 Cuffed: cuffed Route, reference point: center of mouth | | | Tube depth: 21 cm Tube secured with: adhesive tape Trauma: none | | | Tube placement verification: bilateral chest rise, equal bilateral | | | breath sounds, carbon dioxide detection and video laryngoscope | | | Performing provider: Yaritza Oliveros CRNA Please see | | | intraoperative grid for any additional medication documentation. | | + + + + + | Procedure Note | + + | Yaritza Oliveros, DIRECTOR CLOUD TRANSFORMATION - 10/17/2018 12:20 PM PDT Anesthesia Airway | | Placement10/17/2018 12:06Preprocedure check: patient identified, suction, oxygen, airway | | equipment checked, airway assessed and patient reassessment prior to inductionRapid | | Sequence Induction: noMask ventilation: N/ASuccessful technique: videoscopeLaryngoscope | | blade size: 3 Airway grade: 1 (Full view of glottis)Other equipment: styletteAttempts: | | 1Airway type: endotrachealSize: 7.5Cuffed: cuffedRoute, reference point: center of | | mouthTube depth: 21 cmTube secured with: adhesive tapeTrauma: noneTube placement | | verification: bilateral chest rise, equal bilateral breath sounds, carbon dioxide | | detection and video laryngoscopePerforming provider: Yaritza Oliveros CRNAPlease see | | intraoperative grid for any additional medication documentation. | |Attempts: 1 | |Airway type: endotracheal | |Size: 7.5 | |Cuffed: cuffed | |Route, reference point: center of mouth | |Tube depth: 21 cm | |Tube secured with: adhesive tape | |Trauma: none | |Tube placement verification: bilateral chest rise, equal bilateral breath sounds, carbon di oxide detection and video laryngoscope | |Performing provider: Yaritza Oliveros CRNA | | | | | | | |Please see intraoperative grid for any additional medication documentation. | + + documented in this encounter Visit Diagnoses Not on filedocumented in this encounter Administered Medications + +---------+ +------+------+------+ | Medication Order | MAR | Action | Dose | Rate | Site | | | Action | Date | | | | + +---------+ +------+------+------+ | balanced electrolytes in water | New Bag | 10/18/19 | | | | | - pH 7.4 (NORMOSOL-R pH | | 19 1:21 | | | | | 7.4/PLASMALYTE-A) infusion at 50 | | PM PDT | | | | | mL/hr, Intravenous, CONTINUOUS, | | | | | | | Starting 10/17/18 at 1200, | | | | | | | Intra-op | | | | | | + +---------+ +------+------+------+ +---------+ +---+-------+---+ | New Bag | 10/18/19 | | 100 | | | | 19 10:40 | | mL/hr | | | | AM PDT | | | | +---------+ +---+-------+---+ +---+---+ | | | +---+---+ + +-------+ +------+---+---+ | dexamethasone (DECADRON) 4 | Given | 10/18/19 | 8 mg | | | | mg/mL injection Intravenous, | | 19 12:13 | | | | | PRN, Starting Wed10/17/18 at | | PM PDT | | | | | 1213, Anesthesia Intra-op | | | | | | + +-------+ +------+---+---+ +---+---+ | | | +---+---+ + +---------+ +-----+---+---+ | ertapenem (INVanz) 1 g in | New Bag | 10/18/19 | 1 g | | | | sodium chloride 0.9% 50 mL IVPB | | 19 12:10 | | | | | 1 g, Intravenous, Administer over | | PM PDT | | | | | 30 Minutes, 30 MIN PRE-OP, | | | | | | | Starting Wed10/17/18 at 1030, For | | | | | | | 1 dose, Keep in refrigerator., | | | | | | | Indications: Colorectal | | | | | | | Perioperative Infection | | | | | | + +---------+ +-----+---+---+ +---+---+ | | | +---+---+ + +-------+ +--------+---+---+ | fentaNYL (PF) injection | Given | 10/18/19 | 50 mcg | | | | Intravenous, PRN, Starting Mon | | 19 1:21 | | | | | 10/17/18 at 1204, Anesthesia | | PM PDT | | | | | Intra-op | | | | | | + +-------+ +--------+---+---+ +-------+ +--------+---+---+ | Given | 10/18/19 | 50 mcg | | | | | 19 12:54 | | | | | | PM PDT | | | | +-------+ +--------+---+---+ | Given | 10/18/19 | 50 mcg | | | | | 19 12:30 | | | | | | PM PDT | | | | +-------+ +--------+---+---+ +---+---+ | | | +---+---+ + +-------+ +--------+---+---+ | glycopyrrolate (ROBINUL) | Given | 10/18/19 | 0.6 mg | | | | injection Intravenous, PRN, | | 19 1:11 | | | | | Starting 10/17/18 at 1311, | | PM PDT | | | | | Anesthesia Intra-op | | | | | | + +-------+ +--------+---+---+ +---+---+ | | | +---+---+ + +-------+ +-------+---+---+ | lidocaine (PF) 2% injection | Given | 10/18/19 | 60 mg | | | | Intravenous, PRN, Starting Mon | | 12:05 | | | | | 10/17/18 at 1205, Anesthesia | | PM PDT | | | | | Intra-op | | | | | | + +-------+ +-------+---+---+ +---+---+ | | | +---+---+ + +-------+ +------+---+---+ | neostigmine 1 mg/mL injection | Given | 10/18/19 | 4 mg | | | | Intravenous, PRN, Starting Mon | | 1:11 | | | | | 10/17/18 at 1311, Anesthesia | | PM PDT | | | | | Intra-op | | | | | | + +-------+ +------+---+---+ +---+---+ | | | +---+---+ + +-------+ +------+---+---+ | ondansetron (ZOFRAN) injection | Given | 10/18/19 | 4 mg | | | | Intravenous, PRN, Starting Mon | | 1:13 | | | | | 10/17/18 at 1313, Anesthesia | | PM PDT | | | | | Intra-op | | | | | | + +-------+ +------+---+---+ +---+---+ | | | +---+---+ + +-------+ +--------+---+---+ | propofol (DIPRIVAN) injection | Given | 10/18/19 | 200 mg | | | | Intravenous, PRN, Starting Mon | | 12:05 | | | | | 10/17/18 at 1205, Anesthesia | | PM PDT | | | | | Intra-op | | | | | | + +-------+ +--------+---+---+ +---+---+ | | | +---+---+ + +-------+ +-------+---+---+ | rocuronium (ZEMURON) injection | Given | 10/18/19 | 20 mg | | | | Intravenous, PRN, Starting Mon | | 19 12:42 | | | | | 10/17/18 at 1242, Anesthesia | | PM PDT | | | | | Intra-op | | | | | | + +-------+ +-------+---+---+ +-------+ +-------+---+---+ | Given | 10/18/19 | 30 mg | | | | | 19 12:05 | | | | | | PM PDT | | | | +-------+ +-------+---+---+ +---+---+ | | | +---+---+ documented in this encounter"
--- OUTSIDE RECORDS SUMMARY | ~2019-02-14 | XMS | Encounter Summary ---
Demographics + + + | Address | [address] [place] [address] | | | [place] [address] | + + + | Home Phone | | + + + | Preferred Language | Unknown | + + + | Marital Status | Unknown | + + + | Pentecostalism Affiliation | Unknown | + + + | Race | Unknown | + + + | Ethnic Group | Unknown | + + + Author + + + | Author | [facility] | | | and [place] | + + + | Organization | [facility] | | | and [...] Team Providers + +------+ + | Care Roller Printing Supervisor Name | Role | Phone | + +------+ + PCP | Unavailable | + +------+ + Encounter Details +--------+ + + + + | Date | Type | Department | Care Team | Description | +--------+ + + + + | 10/14/ | Hospital | [facility] GENER[facility] IP | Conversion | Pain | | 2017 | Encounter | CONVERSION [address] | Transaction, | | | | | [address] | Provider Unknown | | | | | [facility] [place] | | | | | | [address] | (Fax) | | | | | [phone] | | | +--------+ + + + + Social History + +-------+ +--------+------+ | Tobacco Use | Types | Packs/Day | Years | Date | | | | | Used | | + +-------+ +--------+------+ | Never Assessed | | | | | + +-------+ +--------+------+ + + + | Sex Assigned at [...] | + +--------+ + + + | MRI BRAIN WO | Routin | 09/14/2016 | | Results for this | | CONTRAST | e | 4:45 AM | | procedure are in the | | | | PDT | | results section. | + +--------+ + + + documented in this encounter Results MRI Brain wo Contrast (09/14/2016 4:45 AM PDT) + + | Specimen | + + | | + + + + + | Narrative | Performed At | + + + | This is a non-reportable procedure without a radiologist report and | | | is used for image storage only | | + + + + + | Procedure Note | + + | Sebastian Jefferson Nathanael - 10/13/2018 8:17 AM PDT This is a non-reportable procedure | | without a radiologist report and isused for image storage only | + + documented in this encounter Visit Diagnoses + + | Diagnosis | + + | Pain Generalized pain | + + documented in this encounter"
--- OUTSIDE RECORDS SUMMARY | ~2019-02-14 | XMS | Clinical Summary ---
Demographics + + + | Address | [address] [place] [address] | | | [place] [address] | + + + | Home Phone | | + + + | Preferred Language | Unknown | + + + | Marital Status | Unknown | + + + | Latter-Day Affiliation | Unknown | + + + | Race | Unknown | + + + | Ethnic Group | Unknown | + + + Author + + + | Author | [facility] | | | and [place] | + + + | Organization | [facility] | | [...] Team Providers + +------+ + | Care Regional Ehs Manager Name | Role | Phone | + [...] | | 2018 | Encounter | | MEDICAL BILLING CLERK | weakness | | | | | | (generalized); | | | | | | Acquired diplegia | | | | | | (HCC) | +--------+ + + + + | 02/01/ | Hospital | Radiology | Tawana Gan, | Weakness; Muscle | | 2018 | Encounter | | MEDICAL BILLING CLERK 1, [facility] | weakness | | | | | Nurse Radiologist, | (generalized); | | | | | [facility] X[facility] | Acquired diplegia | | | [...] | [employer] - | | 08/11/ | [id number] | | 11/27/2016 by Douglas Logan, | | Spine | MEDT | | 2024 | 4 / | | DO | | Cervic | | | | /[id number] | | | | al | | | | 583 | + +------+--------+ +--------+--------+--------+ | End CapImplanted: Qty: 1 on | | N/A: | [employer]IC - | | 09/07/ | [id number] | | 11/27/2016 by Douglas Logan, | | Spine | MEDT | | 2024 | 4 / | | DO | | Cervic | | | | /[id number] | | | | al | | | | 151 | + +------+--------+ +--------+--------+--------+ | Algrft Bone Dbm Putty Dbx | | N/A: | MTF - | | 07/28/ | [id number] | | 1.0c - | | Spine | SYNTHES - | | 2019 | | | [id number]: | | Cervic | MTFS | | | /[id number] | | Qty: 1 on 11/27/2016 by | | al | | | | [id number] | | Douglas Logan DO | | | | | | [id number] | | | | | | | | 3 / | + +------+--------+ +--------+--------+--------+ | Plate Francisco V-Elite 37.5 2l | | N/A: | [employer]TRONIC - | | | [id number] | | Cerv - [id number]: | | Spine | MEDT | | | 7 / / | | Qty: 1 on 11/27/2016 by | | Cervic | | | | | | Douglas Logan DO | | al | | | | | + +------+--------+ +--------+--------+--------+ | Screw Slf-Drl V/A 4.0x14mm - | | N/A: | [employer]IC - | | | [id number] | | [id number]: Qty: 2 on | | Spine | MEDT | | | 4 / / | | 11/27/2016 by Doreen, | | Cervic | | | | | | DO Douglas | | al | | | | | + +------+--------+ +--------+--------+--------+ | Screw Slf-Drl V/A 4.0x15mm - | | N/A: | [employer]ONIC - | | | [id number] | | [id number]: Qty: 2 on | | Spine | MEDT | | | 5 / | | 11/27/2016 by Doreen, | | Cervic | | | | | | DO Douglas | | al | | | | | + +------+--------+ +--------+--------+--------+ | Screw Slf-Drl V/A 4.0x16mm - | | N/A: | [employer]TRONIC - | | | [id number] | | [id number]: Qty: 2 on | | Spine | [...] and posterior decompressive | | | laminectomies. Marp-bw-bwkcmrou bilateral neural foraminal | | | narrowing. No central canal stenosis. C6-C7: Postsurgical change | | | with anterior fusion and posterior decompressive laminectomy. | | | Sjyc-ce-mtmwhjew bilateral neural foraminal narrowing. No central | [...] fusion and posterior | | decompressive laminectomies. Sqdo-aj-lwxwtins bilateral neural | | foraminal narrowing. No central canal stenosis. | | | | C6-C7: Postsurgical change with anterior fusion and posterior | | decompressive laminectomy. Zhqp-xm-thucqgbc bilateral neural foraminal | | narrowing. No [...] [facility] | | | | performed at [facility];[address] | | LABORATORY | | | | [address];[place] | | | | | | [address] | | | | + + + + + + + + | Specimen | + + | Blood | + + + + + + + | Performing | Address | City/State/Zipcode | Phone Number | | Organization | | | | + + + + + | [facility] | [address] | [place] [address] | [phone] | + + + + + El OWENS (02/01/2019 11:43 AM PST) + + + + + + | Component | Value | Ref Range | Performed | Pathologist | | | | | At | Signature | + + + + + + | INR | 1.0Comment: REFERENCE | | [facility] | | | | RANGE:0.9 - [...] | | | | | performed at [facility];[address] | | | | | | [address];[place], [place] | | | | | | [address] | | | | + + + + + + + + | Specimen | + + | Blood | + + + + + + + | Performing | Address | City/State/Zipcode | Phone Number | | Organization | | | | + + + + + | [facility] | [address] | [place] [address] | [phone] | + + + + + CBC [...] [facility] | | | | performed at [facility];[address] | | LABORATORY | | | | [address];[place] | | | | | | [address] | | | | + + + + + + + + | Specimen | + + | Blood | + + + + + + + | Performing | Address | City/State/Zipcode | Phone Number | | Organization | | | | + + + + + | [facility] | [address] | [place] [address] | [phone] | + + + + + from [...] +--------+-------+---------+--------+ | DEPARTMENT OF | CORRCT | [id number] | 05/05/19 | | | Indemn | [...] | ate | Relative | 1921 | [phone] | [place] [address] | | | | | | 9 (Home) | | | | | | | [phone] | | | | | | 0 (Work) | | + +--------+ +--------+ + + Advance Directives + + + + + | Type | Date Recorded | Patient | Explanation | | | | Bioinformaticist | | + + + + + | Power of | | | | | Enrollment Coordinator | | | | + + + [...]
--- OUTSIDE RECORDS SUMMARY | ~2019-02-14 | XMS | Clinical Summary ---
Demographics + + + | Address | [address] | | | [place] [address] | + + + | Home Phone | | + + + | Preferred Language | Unknown | + + + | Marital Status | Unknown | + + + | Confucianist Affiliation | Unknown | + + + | Race | Unknown | + + + | Ethnic Group | Unknown | + + + Author + + + | Author | [facility] (Historical as of | | | 10-15-18) | + + + | Organization | [facility] (Historical as of | | | 10-15-18) | + + + | Address | Unknown | + + + | Phone | Unavailable | + + + Support + + +---------+ + | Name | Relationship | Address | Phone | + + +---------+ + | None,Provided | ECON | Unknown | | + + +---------+ + Care Team Providers + +------+ + | Care Medical Transcription Radiology Name | Role | Phone | + +------+ + | None, Per Pt | PP | [phone] | + +------+ + Allergies No Known Allergies Current Medications + + +---------+---------+------+------+-------+ | Prescription | Sig. | Disp. | Refills | Star | End | Statu | | | | | | t | Date | s | | | | | | Date | | | + + +---------+---------+------+------+-------+ | omeprazole | Take 20 mg by mouth | | | | | Activ | | (PRILOSEC) 20 MG | every morning before | | | | | e | | capsule | breakfast. | | | | | | + + +---------+---------+------+------+-------+ | nortriptyline | Take 25 mg by mouth | | | | | Activ | | (PAMELOR) 25 MG | nightly. | | | | | e | | capsule | | | | | | | + + +---------+---------+------+------+-------+ | capsaicin | Apply topically 2 | | | | | Activ | | (ZOSTRIX) 0.025 % | (two) times daily. | | | | | e | | cream | | | | | | | + + +---------+---------+------+------+-------+ | calcium carbonate | Take 2 tablets by | 60 | 0 | 03/0 | | Activ | | (TUMS) 500 MG | mouth every 6 (six) | tablet | | 5/20 | | e | | chewable tablet | hours as needed for | | | 19 | | | | | Heartburn for up to | | | | | | | | 30 days. | | | | | | + + +---------+---------+------+------+-------+ | tamsulosin | Take 1 capsule by | 30 | 0 | 03/0 | | Activ | | (FLOMAX) 0.4 MG | mouth After dinner. | capsule | | 5/20 | | e | | capsule | | | | 19 | | | + + +---------+---------+------+------+-------+ | gabapentin | Take 1 tablet by | 60 | 0 | 03/0 | 03/0 | Activ | | (NEURONTIN) 600 MG | mouth 2 (two) times | tablet | | 5/20 | 4/20 | e | | tablet | daily. | | | 19 | 20 | | + + +---------+---------+------+------+-------+ | traMADol (ULTRAM) | Take 50 mg by mouth | | | | | Activ | | 50 MG tablet | every 6 (six) hours | | | | | e | | | as needed for Pain. | | | | | | + + +---------+---------+------+------+-------+ | baclofen | Take 10 mg by mouth | | | | | Activ | | (LIORESAL) 10 mg | 3 (three) times | | | | | e | | tablet | daily. | | | | | | + + +---------+---------+------+------+-------+ Active Problems + + + | Problem | Noted Date | + + + | Sepsis (HCC) | 04/24/2018 | + + + | Infectious colitis | 04/24/2018 | + + + | Cervical myelopathy (HCC) | 04/21/2018 | + + + | S/P laminectomy | 04/21/2018 | + + + | DDD (degenerative disc disease), cervical | 11/04/2016 | + + + | Muscle weakness of upper extremity | 11/04/2016 | + + + | Bilateral carpal tunnel syndrome | 08/26/2016 | + + + Resolved Problems + + + + | Problem | Noted | Resolved | | | Date | Date | + + + + | Cervical spinal stenosis | 11/05/19 | | | | 17 | 9 | + + + + | Cervical radiculopathy at C7 | 11/05/19 | | | | 17 | 9 | + + + + | Cervical radiculopathy at C6 | 11/05/19 | | | | 17 | 9 | + + + + Immunizations + + + + | Name | Dates Previously Given | Next Due | + + + + | INFLUENZA PF, | 04/22/2018 | | | QUADRIVALENT | | | | (PED/ADOL/ADULT) | | | + + + + | Pneumococcal | 04/20/2018 | | | Polysaccharide | | | | 23-valent | | | + + + + Family History + + +------+ + | Medical History | Relation | Name | Comments | + + +------+ + | Other (see comments) | Father | | Brain tumor | + + +------+ + [...] +------+ + + Social History + +-------+ +--------+ + | Tobacco Use | Types | Packs/Day | Years | Date | | | | | Used | | + +-------+ +--------+ + | Former Smoker | | | | Quit: 04/29/2001 | + +-------+ +--------+ + + +---+---+---+ | Smokeless Tobacco: | | | | | Never Used | | | | + +---+---+---+ + + +---------+ + | Alcohol Use | Drinks/We | oz/Week | Comments | | | ek | | | + + +---------+ + | No | | | | + + +---------+ + + + + | Sex Assigned at | Date Recorded | | | | + + + | Not on file | | + + + Last Filed Vital Signs + + + + | Vital Sign | Reading | Time Taken | + + + + | Blood Pressure | 121/65 | 10/12/2018 8:56 AM PDT | + + + + | Pulse | 72 | 10/12/2018 8:56 AM PDT | + + + + | Temperature | 36.3 C (97.4 F) | 10/12/2018 8:56 AM PDT | + + + + | Respiratory Rate | 16 | 10/12/2018 8:56 AM PDT | + + + + | Oxygen Saturation | 100% | 10/12/2018 8:56 AM PDT | + + + + | Inhaled Oxygen | - | - | | Concentration | | | + + + + | Weight | 86.2 kg (190 lb) | 10/12/2018 7:58 AM PDT | + + + + | Height | 180.3 cm (5' 11") | 10/12/2018 7:58 AM PDT | + + + + | Body Mass Index | 26.5 | 10/12/2018 7:58 AM PDT | + + + + Plan of Treatment + + + + + | Health Maintenance | Due Date | Last Done | Comments | + + + + + | Vaccine: | | | | | Dtap/Tdap/Td (1 - | 3 | | | | Tdap) | | | | + + + + + | Vaccine: Influenza | | 04/22/2018 | | | (#1) | 9 | | | + + + + + Implants + +------+--------+ +--------+--------+--------+ | Implanted | Type | Area | Manufacture | Device | Expira | Model | | | | | r | | tion | / | | | | | | Identi | Date | Serial | | | | | | fier | | / Lot | + +------+--------+ +--------+--------+--------+ | End CapImplanted: Qty: 1 on | | N/A: | [employer] | | 08/11/ | [id number] | | 11/27/2016 by Douglas Logan, | | Spine | | | 2024 | 4 / | | DO | | Cervic | | | | /[id number] | | | | al | | | | 583 | + +------+--------+ +--------+--------+--------+ | End CapImplanted: Qty: 1 on | | N/A: | [employer] | | 09/07/ | [id number] | | 11/27/2016 by Douglas Logan, | | Spine | | | 2024 | 4 / | | DO | | Cervic | | | | /[id number] | | | | al | | | | 151 | + +------+--------+ +--------+--------+--------+ | Algrft Bone Dbm Putty Dbx | | N/A: | MTF - | | 07/28/ | [id number] | | 1.0c - | | Spine | SYNTHES - | 2018 | | | [id number]: | | Cervic | MTFS | | | /[id number] | | Qty: 1 on 11/27/2016 by | | al | | | | [id number] | | Douglas Logan, DO | | | | | | [id number] | | | | | | | | 3 / | + +------+--------+ +--------+--------+--------+ | Plate Francisco V-Elite 37.5 2l | | N/A: | [employer] - | | | [id number] | | Cerv - [id number]: | | Spine | MEDT | | | | | Qty: 1 on 11/27/2016 by | | Joeic | | | | | | Douglas Logan DO | | al | | | | | + +------+--------+ +--------+--------+--------+ | Screw Slf-Drl V/A 4.0x14mm - | | N/A: | [employer] - | | | [id number] | | [id number]: Qty: 2 on | | Spine | MEDT | | | | | 11/27/2016 by Doreen, | | Jean Paul | | | | | | DO Douglas | | al | | | | | + +------+--------+ +--------+--------+--------+ | Screw Slf-Drl V/A 4.0x15mm - | | N/A: | [employer] - | | | [id number] | | [id number]: Qty: 2 on | | Spine | MEDT | | | | | 11/27/2016 by Doreen, | | Joeic | | | | | | DO Douglas | | al | | | | | + +------+--------+ +--------+--------+--------+ | Screw Slf-Drl V/A 4.0x16mm - | | N/A: | [employer] - | | | [id number] | | [id number]: Qty: 2 on | | Spine | MEDT | | | / | | 11/27/2016 by Doreen, | | Joeic | | | | | | DO Douglas | | al | | | | | + +------+--------+ +--------+--------+--------+ Results Not on filefrom Last 3 Months Insurance + +--------+ +------+-------+---------+ | Payer | Benefi | Subscriber | Type | Phone | Address | | | t Plan | ID | | | | | | / | | | | | | | Group | | | | | + +--------+ +------+-------+---------+ | [employer] | [employer] | [id number] | | | | | | RECTIO | | | | | | | NAL | | | | | | | HEALTH | | | | | | | | | | | | | | PARTNE | | | | | | | RS | | | | | + +--------+ +------+-------+---------+ + +--------+ +--------+ + + | Guarantor Name | Accoun | Relation to | Date | Phone | Billing Address | | | t Type | Patient | of | | | | | | | | | | + +--------+ +--------+ + + | [employer],EASTERN | Bob | Other | [birth year] | Home: | [address] | | [place] | tional | | 1976 | [phone] | [place] | | | | | | [phone] | [address] | | | Facili | | | | | | | ty | | | | | + +--------+ +--------+ + + | SHANE LAMBERT | Person | Self | [birth year] | Home: | [address] [place] [address] | | | germaine/Harish | | 1976 | [phone] | [place] [address] | | | alondra | | | [address] | | + +--------+ +--------+ + +
--- OUTSIDE RECORDS SUMMARY | ~2019-02-14 | XMS | Encounter Summary ---
Demographics + + + | Address | [address] [place] [address] | | | [place] [address] | + + + | Home Phone | | + + + | Preferred Language | Unknown | + + + | Marital Status | Unknown | + + + | Confucianism Affiliation | Unknown | + + + | Race | Unknown | + + + | Ethnic Group | Unknown | + + + Author + + + | Author | [facility] | | | and [place] | + + + | Organization | [facility] | | | and [...] Team Providers + +------+ + | Care Color Paste Mixer Name | Role | Phone | + [...] Provider Unknown | | | | | [facility] | | | | | | [address] | (Fax) | | | | | [phone] | | | +--------+ + + + [...] + +--------+ + + + | MRI CERVICAL SPINE | Routin | 09/14/2016 | | Results for this | | WO CONTRAST | e | 4:40 AM | | procedure are in the | | | | PDT | | results section. | + +--------+ + + + documented in this encounter Results MRI Cervical Spine wo Contrast (09/14/2016 4:40 AM PDT) + + | Specimen | [...]
--- OUTSIDE RECORDS SUMMARY | ~2019-02-14 | XMS | Encounter Summary ---
Demographics + + + | Address | [address] [place] [address] | | | [place] [address] | + + + | Home Phone | | + + + | Preferred Language | Unknown | + + + | Marital Status | Unknown | + + + | Religion Affiliation | Unknown | + + + | Race | Unknown | + + + | Ethnic Group | Unknown | + + + Author + + + | Author | [facility] | | | and [place] | + + + | Organization | [facility] | | [...] Team Providers + +------+ + | Care Breast Surgeon Name | Role | Phone | + [...] + + | 10/17/ | Anesthesia | [facility] | Yaritza Oliveros | | | 2019 | Event | [facility] | K, FUEL DISTRIBUTION SYSTEM OPERATOR [address] | | | | | OPERATING ROOM [address] [place], [place] | | | | | [facility] | [address] | | | | | [place], [place] | | | | | | [address] | | | | | | [phone] | | | +--------+ + + + + Anesthesia Record + + + + + | Procedure Name | Responsible | Anesthesia Start | Anesthesia Stop Time | | | Anesthesiologist | Time | | + + + + + | ILEOSTOMY REVISION | Yaritza Oliveros, | 10/17/18 1201 | 10/17/18 1332 | | (N/A Abdomen) | FUEL DISTRIBUTION SYSTEM OPERATOR | | | + + + + [...] 10/19/18 1220 by | | eral | pdor-bsz-fhbemo catheter system; | Angelica Hernandez | Pam [...] | | | procedure documentation); Mask | FUEL DISTRIBUTION SYSTEM OPERATOR | FUEL DISTRIBUTION SYSTEM OPERATOR | | | Ventilation: N/A; Airway Grade: [...] | specific surgical procedure; | Michaela A Yorklyn, | Michaela A Yorklyn, | | Cathet | Perineum cleaned, Second [...] Note | + + | Yaritza Oliveros, FUEL DISTRIBUTION SYSTEM OPERATOR - 10/17/2018 12:20 PM PDT Anesthesia Airway [...]
--- OUTSIDE RECORDS SUMMARY | ~2019-02-14 | XMS | Encounter Summary ---
Demographics + + + | Address | [address] [place] [address] | | | [place] [address] | + + + | Home Phone | | + + + | Preferred Language | Unknown | + + + | Marital Status | Unknown | + + + | Gnosticism Affiliation | Unknown | + + + | Race | Unknown | + + + | Ethnic Group | Unknown | + + + Author + + + | Author | [facility] | | | and [place] | + + + | Organization | [facility] | | | [...] Team Providers + +------+ + | Care Sustainability Consultant Name | Role | Phone | + +------+ + | No, Physician | PCP | Unavailable | + +------+ + Encounter Details +--------+ + + + + | Date | Type | Department | Care Team | Description | +--------+ + + + + | 02/01/ | Hospital | [facility] | Tawana Gan, | Weakness; Muscle | | 2019 | Encounter | [facility] | ELECTRIC LOCOMOTIVE FIRER/FIREMAN [address] | weakness | | | | [address] | [place], [place] | (generalized); | | | | [place], [place] | [address] | Acquired diplegia | | | | [address] | [phone] | (HCC) | | | | [phone] | | | | | | | 1, [facility] Rad Nurse | | | | | | Radiologist, [facility] Xr | | +--------+ + + + + [...] + + documented as of this encounter Last Filed Vital Signs + + + [...] + + + + | Weight | - | - | | + + + + + | Height | - | - | | + + + + + | Body Mass Index | - | - | | + + + + + documented in this encounter Discharge Instructions Instructions Nila Oro RN - 02/01/2019Your doctor performed a lumbar puncture for e ither the removal of fluid for analysis, or to inject contrast for xrays and CT scan. Here a re some instructions for you to care for yourself upon going home. ACTIVITY: Avoid strenuous activity for the next 24 hours. DIET: Drink plenty of fluids. We recommend at least 8 ounces every 2 hours. This will help min imize the risk of spinal headache. You may eat as desired. For myelogram patients, drinking fluids will help eliminate the contrast injected from your body. If you received medication for sedation or pain control, you may experience drowsiness, diz ziness, or blurred vision. You are instructed to: -Rest for the remainder of today. Avoid strenuous activity. -DO NOT drive or perform other tasks requiring alertness or coordination for the remainde r of the day. -Do not make important decision today. -Do not drink alcoholic beverages including beer, wine, or other spirits. It is not unusual to experience a mild headache. If this occurs, return to bedrest with you r head completely flat for another 12-24 hours. You may take Tylenol (acetaminophen) to redu ce your headache. Report to your doctor if you experience any of the following: -Persistent headache longer that 24 hours. -Nausea/Vomiting -Fever/chills -Any problems or concerns regarding this procedure. FOR ANY SEVERE SYMPTOMS, PLEASE REPORT TO YOUR NEAREST EMERGENCY DEPARTMENT If you have any questions regarding your procedure, you may contact the Radiology nurse [phone], ext. [phone] . documented in this encounter Medications at Time of Discharge + + + +---------+ + + | Medication | Sig | Dispensed | Refills | Start | End Date | | | | | | Date | | + + + +---------+ + + | baclofen | Take 10 mg by mouth | | 0 | 07/28/19 | | | (LIORESAL) 10 mg | 3 (three) times | | | 19 | | | tablet | daily. | | | | | + + + +---------+ + + | capsaicin | Apply topically 2 | | 0 | 03/18/19 | | | (ZOSTRIX) 0.025% | (two) times daily. | | | 19 | | | cream | | | | | | + + + +---------+ + + | diphenhydrAMINE | Take 50 mg by mouth | | 0 | | | | (BENADRYL) 50 mg | every 6 hours as | | | | | | capsule | needed for Itching. | | | | | + + + +---------+ + + | gabapentin | Take 1 tablet by | 60 | 0 | 05/04/19 | | | (NEURONTIN) 600 MG | mouth 2 (two) times | tablet | | 19 | 0 | | tablet | daily. | | | | | + + + +---------+ + + | nortriptyline | Take 25 mg by mouth | | 0 | 03/18/19 | | | (PAMELOR) 25 mg | nightly. | | | 19 | | | capsule | | | | | | + + + +---------+ + + | omeprazole | Take 20 mg by mouth | | 0 | 11/04/19 | | | (PRILOSEC) 20 mg | every morning before | | | 17 | | | capsule | breakfast. | | | | | + + + +---------+ + + | tamsulosin | Take 1 capsule by | 30 | 0 | 05/04/19 | | | (FLOMAX) 0.4 mg CAPS | mouth After dinner. | capsule | | 19 | | + + + +---------+ + + | traMADol (ULTRAM) | Take 50 mg by mouth | | 0 | 07/28/19 | | | 50 mg tablet | every 6 (six) hours | | | 19 | | | | as needed for Pain. | | | | | + + + +---------+ + + documented as of this encounter Progress Notes Shantal Devi RN - 02/01/2019 2:06 PM PSTDischarge criteria met, vss. Po instructions revi ewed, verbalized understanding, copy sent with pt escorts. Pt denies pain post procedure. Ba ndaid on mid back, cdi. Pt escorted to main lobby by correctional facility staff. Electronic ally signed by Shantal Devi RN at 02/01/2019 2:09 PM PSTdocumented in this encounter Plan of Treatment Not on [...] + + documented in this encounter Results [place] Myelogram Cervical (02/01/2019 1:50 PM PST) + + | Specimen | + + | | + + + + + | Impressions | Performed At | + + + | Technically successful intrathecal injection of contrast for CT | [facility] | | cervical myelogram. Please see the CT report for further details. | | | Signed by: Pineda Ruiz Matt Sign Date/Time: 02/01/2019 3:03 | | | [...] + + | Performing | Address | City/State/[place] [facility] | Phone Number | | Organization | | | | + +---------+ + + | [facility] | | | | + +---------+ + + CBC no Differential (02/01/2019 11:43 [...] [facility] | | | | performed at [facility];[address] | | LABORATORY | | | | [address];[place], [place] | | | | | | [address] | | | | + + + + + + + + | Specimen | + + | Blood | + + + + + + + | Performing | Address | City/State/Zipcode | Phone Number | | Organization | | | | + + + + + | [facility] | [address] | [place] [address] | [phone] | + + + + + Protime INR (02/01/2019 11:43 AM PST) + + + + + + | Component | Value | Ref Range | Performed | Pathologist | | | | | At | Signature | + + + + + + | INR | 1.0Comment: REFERENCE | | [facility] | | | | RANGE:0.9 [...] | | | | | performed at [facility];[address] | | | | | | [facility];[place], [place] | | | | | | [address] | | | | + + + + + + + + | Specimen | + + | Blood | + + + + + + + | Performing | Address | City/State/Zipcode | Phone Number | | Organization | | | | + + + + + | [facility] | [address] [facility] | [place] [address] | [phone] | + + + + + PTT (02/01/2019 11:43 AM PST) + + + + + + | Component | Value | Ref Range | Performed | Pathologist | | | | | At | Signature | + + + + + + | PTT | 26Comment: Testing | 23 - 32 seconds | [facility] | | | | performed at [facility];[address] | | LABORATORY | | | | [address];[place], [place] | | | | | | [address] | | | | + + + + + + + + | Specimen | + + | Blood | + + + + + + + | Performing | Address | City/State/Zipcode | Phone Number | | Organization | | | | + + + + + | [facility] | [address] | [place] [address] | [phone] | + + + + + documented in this encounter Visit Diagnoses + + | Diagnosis | + + | Weakness Other malaise and fatigue | + + | Muscle weakness (generalized) | + + | Acquired diplegia (HCC) Diplegia of upper limbs | + + documented in this encounter Administered Medications + +--------+ +--------+------+------+ | Medication Order | MAR | Action | Dose | Rate | Site | | | Action | Date | | | | + +--------+ +--------+------+------+ | iohexol (OMNIPAQUE 300) 300 | Given | 02/02/20 | 10 mLs | | | | mg/mL injection 10 mL 10 mL, | | 19 1:30 | | | | | INTRATHECAL, ONCE, 02/01/19 at | | PM PST | | | | | 1330, For 1 dose, Radiology | | | | | | + +--------+ +--------+------+------+ +---+---+ | | | +---+---+ documented in this encounter"
--- OUTSIDE RECORDS SUMMARY | ~2019-02-14 | XMS | Encounter Summary ---
Demographics + + + | Address | [address] [place] [address] | | | [place] [address] | + + + | Home Phone | | + + + | Preferred Language | Unknown | + + + | Marital Status | Unknown | + + + | Denominational Affiliation | Unknown | + + + | Race | Unknown | + + + | Ethnic Group | Unknown | + + + Author + + + | Author | [facility] | | | and [place] | + + + | Organization | [facility] | | | [...] Providers + +------+ + | Care Regional Business Manager Name | Role | Phone | [...] Provider Unknown | | | | | [facility] [place] | | | | | | [address] | (Fax) | | | | | [phone] | | | +--------+ + + + [...] | | WO CONTRAST | e | 4:56 AM | | procedure are in the | | | | PDT | | results section. | + +--------+ + + + documented in this encounter Results MRI Cervical Spine wo Contrast (09/14/2016 4:56 AM PDT) + + | Specimen | [...] + | Sebastian Jefferson Nathanael - 10/13/2018 8:18 AM PDT This is a non-reportable procedure | | without a radiologist report and isused for image storage only | + + documented in this encounter Visit Diagnoses + + | Diagnosis | + + | Pain Generalized pain | + + documented in this encounter"
--- OUTSIDE RECORDS SUMMARY | ~2019-02-14 | XMS | Encounter Summary ---
Demographics + + + | Address | [address] [place] [address] | | | [place] [address] | + + + | Home Phone | | + + + | Preferred Language | Unknown | + + + | Marital Status | Unknown | + + + | Protestant Affiliation | Unknown | + + + | Race | Unknown | + + + | Ethnic Group | Unknown | + + + Author + + + | Author | [facility] | | | and [place] | + + + | Organization | [facility] | | [...] Team Providers + +------+ + | Care Wind Power Project Manager Name | Role | Phone | + +------+ + | No, Physician | PCP | Unavailable | + +------+ + Encounter Details +--------+ + + + + | Date | Type | Department | Care Team | Description | +--------+ + + + + | 01/31/ | Telephone | [facility] | Tamica Nguyen, | | | 2018 | | [facility] | RN | | | | | [address] | | | | | | [place], [place] | | | | | | [address] | | | | | | [phone] | | | +--------+ + + + [...]
--- OUTSIDE RECORDS SUMMARY | ~2019-02-14 | XMS | Encounter Summary ---
Demographics + + + | Address | [address] [place] [address] | | | [place] [address] | + + + | Home Phone | | + + + | Preferred Language | Unknown | + + + | Marital Status | Unknown | + + + | Scientology Affiliation | Unknown | + + + | Race | Unknown | + + + | Ethnic Group | Unknown | + + + Author + + + | Author | [facility] | | | and [place] | + + + | Organization | [facility] | | [...] Team Providers + +------+ + | Care Diesel Engine Operator Name | Role | Phone | + +------+ + | No, Physician | PCP | Unavailable | + +------+ + Encounter Details +--------+ + + + + | Date | Type | Department | Care Team | Description | +--------+ + + + + | 11/03/ | Orders Only | [facility] | Conversion | | | 2017 | | CONVERSION DEP [address] | Transaction, | | | | [address] | Provider Unknown | | | | | [place] | | | | | | [address] | (Fax) | | | | | [phone] | | | +--------+ + + + [...]
--- OUTSIDE RECORDS SUMMARY | ~2019-02-14 | XMS | Encounter Summary ---
Demographics + + + | Address | [address] [place] [address] | | | [place] [address] | + + + | Home Phone | | + + + | Preferred Language | Unknown | + + + | Marital Status | Unknown | + + + | Temple Affiliation | Unknown | + + + | Race | Unknown | + + + | Ethnic Group | Unknown | + + + Author + + + | Author | [facility] | | | and [place] | + + + | Organization | [facility] | | | and [...] Team Providers + +------+ + | Care Pin Drafting Machine Tender Name | Role | Phone | + +------+ + | No, Physician | PCP | Unavailable | + +------+ + Encounter Details +--------+ + + + + | Date | Type | Department | Care Team | Description | +--------+ + + + + | 01/31/ | Telephone | [facility] | Tamica Nguyen, | | | 2018 | | [facility] | RN | | | | | [address] | | | | | | [place], [place] | | | | | | [address] | | | | | | [phone] | | | +--------+ + + + [...]
--- OUTSIDE RECORDS SUMMARY | ~2019-02-14 | XMS | Clinical Summary ---
Demographics + + + | Address | [address] | | | [place] [address] | + + + | Home Phone | | + + + | Preferred Language | Unknown | + + + | Marital Status | Unknown | + + + | Oriental Orthodox Affiliation | Unknown | + + + | Race | Unknown | + + + | Ethnic Group | Unknown | + + + Author + + + | Author | [facility] (Historical as of | | | 10-15-18) | + + + | Organization | [facility] (Historical as of | | | 10-15-18) [...] Team Providers + +------+ + | Care Occupational Therapist Name | Role | Phone | + [...] N/A: | [facility] | | 08/11/ | [id number] | | 11/27/2016 by Douglas Logan, | | Spine | | | 2024 | 4 / | | DO | | Cervic | | | | /[id number] | | | | al | | | | 583 | + +------+--------+ +--------+--------+--------+ | End CapImplanted: Qty: 1 on | | N/A: | [facility] | | 09/07/ | [id number] | | 11/27/2016 by Douglas Logan, | | Spine | | | 2024 | 4 / | | DO | | Cervic | | | | /[id number] | | | | al | | | | 151 | + +------+--------+ +--------+--------+--------+ | Algrft Bone Dbm Putty Dbx | | N/A: | MTF - | | 07/28/ | [id number] | | 1.0c - | | Spine | SYNTHES - | 2018 | | | [id number]: | | Cervic | MTFS | | | /[id number] | | Qty: 1 on 11/27/2016 by | | al | | | | [id number] | | Douglas Logan, DO | | | | | | [id number] | | | | | | | | 3 / | + +------+--------+ +--------+--------+--------+ | Plate Francisco V-Elite 37.5 2l | | N/A: | [facility] - | | | [id number] | | Cerv - [id number]: | | Spine | MEDT | | | | | Qty: 1 on 11/27/2016 by | | Joeic | | | | | | Douglas Logan DO | | al | | | | | + +------+--------+ +--------+--------+--------+ | Screw Slf-Drl V/A 4.0x14mm - | | N/A: | [facility] - | | | [id number] | | [id number]: Qty: 2 on | | Spine | MEDT | | | | | 11/27/2016 by Doreen, | | Jean Paul | | | | | | DO Douglas | | al | | | | | + +------+--------+ +--------+--------+--------+ | Screw Slf-Drl V/A 4.0x15mm - | | N/A: | [facility] - | | | [id number] | | [id number]: Qty: 2 on | | Spine | MEDT | | | | | 11/27/2016 by Doreen, | | Joeic | | | | | | DO Douglas | | al | | | | | + +------+--------+ +--------+--------+--------+ | Screw Slf-Drl V/A 4.0x16mm - | | N/A: | [facility] - | | | [id number] | | [id number]: Qty: 2 on | | Spine | [...] +------+-------+---------+ | [facility] | [facility]-COR | [id number] | | | | | | RECTIO [...] Other | [birth year] | Home: | [address] | | [place] | tional | | 1976 | [phone] | [place] | | | | | | [address] | [address] | | | Facili | | | | | | | ty | | | | | + +--------+ +--------+ + + | SHANE LAMBERT | Person | Self | [birth year] | Home: | [address] [place] [address] | | | germaine/Harish | | 1976 | [phone] | [place] [address] | | | alondra | | | 0528 | | + +--------+ +--------+ + +
--- OUTSIDE RECORDS SUMMARY | ~2019-02-14 | XMS | Encounter Summary ---
Demographics + + + | Address | [address] [place] [address] | | | [place] [address] | + + + | Home Phone | | + + + | Preferred Language | Unknown | + + + | Marital Status | Unknown | + + + | Sikh Affiliation | Unknown | + + + | Race | Unknown | + + + | Ethnic Group | Unknown | + + + Author + + + | Author | [facility] | | | and [place] | + + + | Organization | [facility] | | [...] Team Providers + +------+ + | Care Human Resources Benefits Administrator Name | Role | Phone | + +------+ + | No, Physician | PCP | Unavailable | + +------+ + Encounter Details +--------+ + + + + | Date | Type | Department | Care Team | Description | +--------+ + + + + | 07/27/ | Orders Only | [facility] | Conversion | | | 2019 | | CONVERSION [address]P [address] | Transaction, | | | | | [address] | Provider Unknown | | | | | [place] | | | | | | [address] | (Fax) | | | | | [phone] | | | +--------+ + + + [...]
--- OUTSIDE RECORDS SUMMARY | ~2019-02-14 | XMS | Encounter Summary ---
Demographics + + + | Address | [address] [place] [address] | | | [place] [address] | + + + | Home Phone | | + + + | Preferred Language | Unknown | + + + | Marital Status | Unknown | + + + | Jain Affiliation | Unknown | + + + [...] Team Providers + +------+ + | Care Fusing Line Inspector Name | Role | Phone | + [...] + + + + | 10/17/ | Hospital | [facility] | Samy Cardenas, | Status post [facility] | | 2019 - | Encounter | [facility] [address] | MD Clark RAO | procedure (HCC) | | | | [address] | [address] | | | 10/19/ | | [place], [place] | [place] [address] | | | 2019 | | [address] | [phone] | | | | | [phone] | | | +--------+ + + + [...] + + + | Blood Pressure | 128/67 | 10/19/2018 11:27 AM | | | | | PDT | | + + + + + | Pulse | 88 | 10/19/2018 11:27 AM | | | | | PDT | | + + + + + | Temperature | 36.5 C (97.7 F) | 10/19/2018 11:27 AM | | | | | PDT | | + + + + + | Respiratory Rate | 18 | 10/19/2018 11:27 AM | | | | | PDT | | + + + + + | Oxygen Saturation | 98% | 10/19/2018 11:27 AM | | | | | PDT [...] + + documented in this encounter Discharge Summaries Jam Kitchen ARNP - 10/19/2018 9:59 AM PDTFormatting of this note might be differen t from the original. Physician Discharge Summary Patient ID: Matthias Lambert [id number] 43 y.o. 1975 Admit date: 10/17/2018 Discharge date and time: 10/19/2018 13:23 Admitting Physician: Samy Cardenas MD Discharge Physician: DELANEY Lilly Admission Diagnoses: Infectious colitis [A09] Admission Condition: good Discharged Condition: good Indication for Admission: Ileocolostomy reversal Hospital Course: Matthias Lambert is a 43 y.o. male who underwent a ileo-colostomy reversal with Dr. Cardenas. Since surgery he has recovered well. He is tolerating a general diet witho ut N/V. He is passing gas and having BMs. Oral pain medications are managing the patients pain. He is ambulatory. Vitals and labs are stable. The patient is ready for discharge. Consults: none Discharge Exam: Vitals: 10/19/18 0811 BP: 121/52 Pulse: 80 Resp: 18 Temp: 36.6 C (97.9 F) Constitutional: he appears well-nourished. No distress. Cardiovascular: Normal rate Pulmonary/Chest: Effort normal Abdominal: Soft. Non- tender, non distended, incision C/D/I Neurological: he is alert, exhibits normal muscle tone Psychiatry : Alert and oriented to time, place and person. Mood and affect appear normal. A ppropriate judgment and insight Skin: Skin is warm and dry. No rash noted, not diaphoretic. Disposition: [facility] Patient Instructions: Discharge Medications New Medications Details oxyCODONE-acetaminophen 5-325 mg per tablet Take 1 tablet by mouth every 6 hours as needed for Pain for up to 3 days. aka: PERCOCET Unchanged Medications Details baclofen 10 mg tablet Take 10 mg by mouth 3 (three) times daily. aka: LIORESAL capsaicin 0.025% cream Apply topically 2 (two) times daily. aka: ZOSTRIX gabapentin 600 MG tablet Take 1 tablet by mouth 2 (two) times daily. aka: NEURONTIN nortriptyline 25 mg capsule Take 25 mg by mouth nightly. aka: PAMELOR omeprazole 20 mg capsule Take 20 mg by mouth every morning before breakfast. aka: priLOSEC tamsulosin 0.4 mg Caps Take 1 capsule by mouth After dinner. aka: FLOMAX traMADol 50 mg tablet Take 50 mg by mouth every 6 (six) hours as needed for Pain. aka: ULTRAM Activity: activity as tolerated Diet: Low fiber Wound Care: keep wound clean and dry and Remove staple 10-14 days from surgery Follow-up with DELANEY Lilly in 2 weeks. Signed: DELANEY Lilly 10/19/2018 9:59 documented in th is encounter Discharge Instructions Instructions Jam Kitchen ARNP - 10/19/2018Formatting of this note might be differen t from the original. -F/U in our clinic in 2 weeks -F/U with your primary care provider -Take percocet for pain as directed -Take stool softener while on pain medicationo -OK to shower, no baths until incisions are healed -No lifting greater than 10 lbs for 4 weeks. -Low Residue diet until follow up appointment. -Remove staple 10-14 days from surgery on 11/27/17 Discharge Instructions forAbdominal Surgery Abdominal surgery is done through an incision in your belly. It may take a few weeks or ita david to heal from the surgery. This sheet gives instructions on how to care for yourself once you re home. Medicines Here is what to expect: You may be prescribed pain medicine. Do not wait until your pain becomes severe before t aking the medicine. It may not work as well if you wait too long to take it between doses. Most surgeons prescribe stool softeners along with opioid prescriptions. Take these as p rescribed. You may be prescribed antibiotics to help treat or prevent infection. Be sure to take al l of the antibiotics even if you start to feel better. Diet Dietary tips include: Follow any diet instructions given by your healthcare provider. You may need to start wi th liquids and then slowly add solid foods back into your diet. If you have constipation, your healthcare provider may tell you to add more fiber to you r diet. You may also be told to use a laxative or stool softener. These can often be bought over the counter. Drink plenty of fluids. Activity Recommendations include the following: Rest as often as needed. Ask your healthcare provider when you can shower or bathe. Have someone nearby in case y ou need help. Ask your family and friends to help with chores and errands. Don t mow the lawn, vacuum, or do any strenuous activities for4 to 6 weeks. Avoid lifting anything over10 pounds for 4to 6weeks. Avoid driving until your healthcare provider says it s OK. Walk as often as you feel able. Do the coughing and breathing exercises you were taught in the hospital. If you were giv en an incentive spirometer to help with breathing, use it as directed. This is important and will help prevent lung infections. Ask your healthcare provider when you can return to work. Incision and drain care Do's and don'ts include the following: Keep your incision clean and dry. It Francis to wash the skin around your incision with mild soap and water. If you have a dressing over your incision, change it as you were told. Replace the dress ing if it becomes wet or dirty. In most cases, the dressing can be removed after 48 hours. If you have a drain, record the amount of drainage daily. You may also need to empty the drain and clean the attached tubing daily. Check with your healthcare provider if you can g et your drain wet or if it needs to stay dry at all times. Don t sit in a bathtub, pool, or hot tub until your incision is closed and any drains are removed. When coughing or sneezing, hold a pillow firmly against your incision with both hands. T his is called splinting. Doing this helps protect your incision and decreases belly di scomfort. Avoid picking, scratching, or pulling at your incision. Don t use oils,or creams on your incision. Ask your healthcare provider before using lotions on your incision. Follow-up You will have one or more follow-up visits with your healthcare provider. These are needed to check how well you re healing. Your drain, stitches, or kayla may also be removed dur ing these visits. When to call the healthcare provider Call your healthcare provider right away if you have any of the following: Fever of 100.4F (38C)or higher, or as advised by your healthcare provider Chest pain or trouble breathing Pain or tenderness in the leg Increased pain, redness, swelling, bleeding, or foul-smelling drainage at the incision s ite Incision separates or comes apart Problems with the drain if you have one Pain or hardness in your belly that gets worse or isn t relieved by pain medicine Nausea and vomiting that won t go away Diarrhea that lasts more than3 days Constipation or inability to pass gas for more than 3days Dark-colored or bloody urine Bright red or dark black stools Itchy, swollen skin; skin rash Date Last Reviewed: 08/30/201519995782-2609 [employer]. [address] [place] [address]. All righ ts reserved. This information is not intended as a substitute for professional medical care. Always follow your healthcare professional's instructions. Low-Fiber Diet Eggs are high in protein and easy to digest. Eating a low-fiber diet means eating foods that don t have much fiber. These foods are ea sy to digest. Most of the fiber that you eat passes undigested through your bowel. This is what forms sto ol. Low-fiber foods can help to slow down your bowel movements. When you eat a low-fiber t, you have fewer stools. This lets your intestine rest. Your healthcare provider will tell you how long you need to be on this diet. It may only be for a short time. Low-fiber foods often don t give you all the nutrients you need tosta yhealthy. Your healthcare provider may have you take certain vitamins while you are on thi s diet. Reasons to eat a low-fiber diet The goal of alow-fiber diet is tolimit the size and number of your stools. It may be pr escribed if you: Are going through chemotherapy or radiation treatments Have had intestinal surgery Have a condition that affects your intestine, such as irritable bowel syndrome, Crohn s disease, ulcerative colitis, or diverticulitis General guidelines for a low-fiber diet In general, a low-fiber diet means having fewer than 13 grams of fiber a day. Your healthca re provider may give you a list of things you can and can t eat or drink. Read food labels . Choose foods and drinks that have as close to zero grams of fiber as possible. Here are ge neral guidelines to follow: Breads, pasta, cereal, rice, and other starches (6 to 11 servings daily) What to choose: white bread, biscuits, muffins, and white rolls; plain crackers; waffles ; white pasta; white rice; cream of wheat; grits; white pancakes; corn flakes; cooked potato es without skin.Fiber content of these foods should be less than 0.5 (1/2) gram per erik g. What to avoid: whole-wheat or whole-grain breads, crackers, and pasta; breads with seeds or nuts; wheat germ; brandon crackers;cornbread; wild or brown rice; cereals with whole-gr ain, bran, and granola; cereals with seeds, nuts, coconut, or dried fruit; potatoes with ski n Milk and dairy (2 servings daily) What to choose: milk, buttermilk; yogurt or ice cream without seeds or nuts; custard or pudding; sour cream; cheese and cottage cheese What to avoid: ice cream and yogurt with seeds, nuts, or fruit chunks Fruit (2 to 4 servings daily) What to choose: ripe banana; ripe nectarine, peach, apricot, papaya, and plum; soft hemanth ydew melon and cantaloupe; cooked or canned fruit without skin or seeds (not sweetened with sorbitol); applesauce; strained fruit juice (without pulp) What to avoid: raw or dried fruit; all berries; raisins; canned and raw pineapple; prune s and prune juice; fruit juice with pulp Vegetables (3 to 5 servings daily) What to choose: well-cooked or canned vegetables without seeds, such as spinach, eggplan t, green and wax beans, carrots, yellow squash, pumpkin; lettuce on a sandwich What to avoid: all raw or steamed vegetables; vegetables with seeds, such as unstrained tomato sauce; green peas; casey beans; broccoli; corn; parsnips Meats and protein (4 to 6 ounces daily) What to choose: tender, well-cooked meat, including ground meat, poultry, and fish; eggs ; tofu; creamy peanut butter What to avoid: tough, chewy meat with gristle; peas, including split, yellow, and black- eyed; beans, including navy, casey, black, garbanzo, soy, osorio, andlentil; peanuts and cru nchy peanut butter Fats, oils, sauces, condiments (fewer than 8 teaspoons daily) What to choose: butter, margarine, oils, whipped cream, sour cream, mayonnaise, smooth d ressings and sauces; plain gravy; smooth condiments What to avoid: dressing with seeds or fruit chunks; pickles and relishes Other foods and drinks What to choose: water; plain gelatin; plain puddings; pretzels; plain cookies and cakes; honey, syrup; decaffeinated drinks, including tea and coffee What to avoid: popcorn; potato chips;spicy foods; fried, greasy foods; alcohol (ask yo ur healthcare provider); marmalade, jam, and preserves; desserts that have seeds, nuts, yusef nut, dried fruit, whole grains, or bran; candy that has seeds or nuts; drinks sweetened with sorbitol or other sugar substitutes; caffeinated drinks, including tea, coffee, soda, and e nergy drinks Date Last Reviewed: 07/30/201619995481-9944 [employer]. [address] [place] [address]. All righ ts reserved. This information is not intended as a substitute for professional medical care. Always follow your healthcare professional's instructions. documented in this encounter Medications at Time [...] + + + +---------+ + + | | Take 1 tablet by | 12 | 0 | 10/20/19 | | | oxyCODONE-acetaminop | mouth every 6 hours | tablet | | 19 | 9 | | hen (PERCOCET) 5-325 | as needed for Pain | | | | | | mg per tablet | for up to 3 days. | | | | | + + + +---------+ + + documented as of this encounter Progress Notes Pam Maharaj RN - 10/19/2018 12:17 PM PDTPt to return to [facility] today at 13:15. Rep ort called to Martha, nursing staff. Facility aware. Dione Trent RN - 10/18/2018 4:55 PM PDTPat ient progressing with Plan of Care as noted. Will continue to educate and encourage progress ion of care plan goals. End of shift chart review completed. DIONE DE LA CRUZ RN 10/18/2018 16:55 Joshua Flowers ARNP - 10/18/2018 12:31 PM PDTFormatting of this note might be different from the or iginal. Colorectal Surgery Progress Note Pt. Name/Age/: Matthias Lambert 43 y.o. 1975 Med. Record Number: [id number] Date of admission: 10/17/2018 Service(s): Colorectal Surgery Subjective Doing well. Pt is tolerating a FLD without N/V. He is passing gas and has had a few loose BMs. Deneis chest pain and SOB. C/O minimal abdominal pain. Ambulatory. Vitals and labs stable. Objective Vitals: Patient Vitals for the past 24 hrs: BP Temp Temp src Pulse Resp SpO2 Weight 10/18/18 1140 106/54 36.3 C (97.3 F) Oral 102 18 95 % 10/18/18 0751 120/68 36.8 C (98.3 F) 95 18 96 % 10/18/18 0458 91.9 kg (202 lb 9.6 oz) 10/18/18 0450 105/59 36.8 C (98.2 F) Oral 104 18 96 % 10/18/18 0049 108/64 36.9 C (98.4 F) Oral 101 18 93 % 10/17/18 1934 114/65 36.8 C (98.2 F) Oral 118 16 97 % 10/17/18 1834 117/75 114 14 98 % 10/17/18 1734 128/58 115 12 96 % 10/17/18 1704 119/69 112 12 97 % 10/17/18 1634 116/64 110 14 96 % 10/17/18 1620 108/63 106 14 96 % 10/17/18 1605 111/65 108 12 94 % 10/17/18 1552 120/69 36.7 C (98 F) Oral 109 12 97 % 10/17/18 1540 117/70 36.8 C (98.2 F) 103 9 96 % 10/17/18 1535 118/71 106 12 96 % 10/17/18 1530 112/70 104 14 96 % 10/17/18 1525 116/64 100 12 96 % 10/17/18 1520 93/57 104 21 95 % 10/17/18 1515 115/78 99 25 95 % 10/17/18 1510 116/58 102 23 98 % 10/17/18 1505 117/63 87 9 94 % 10/17/18 1500 112/60 90 10 96 % 10/17/18 1455 119/65 86 12 95 % 10/17/18 1450 122/64 94 14 95 % 10/17/18 1445 109/63 93 19 97 % 10/17/18 1440 115/55 84 8 95 % 10/17/18 1435 128/73 100 12 98 % 10/17/18 1430 116/64 92 11 96 % 10/17/18 1425 127/65 88 14 99 % 10/17/18 1420 137/80 97 16 98 % 10/17/18 1415 104/55 92 16 94 % 10/17/18 1410 117/64 93 14 98 % 10/17/18 1405 125/78 95 16 98 % 10/17/18 1400 126/81 92 16 98 % 10/17/18 1355 134/82 94 18 100 % 10/17/18 1350 129/74 97 16 100 % 10/17/18 1345 131/76 93 16 100 % 10/17/18 1340 132/77 92 14 100 % 10/17/18 1335 132/74 97 20 100 % 10/17/18 1330 121/73 100 18 100 % 10/17/18 1327 125/74 36.6 C (97.9 F) Temporal 108 14 100 % Wt. Admission: Weight: 92.3 kg (203 lb 7.8 oz) Wt. Current: Weight: 91.9 kg (202 lb 9.6 oz) Body mass index is 27.48 kg/m. I&O: Intake/Output Summary (Last 24 hours) at 10/18/2018 1231 Last data filed at 10/18/2018 0644 Gross per 24 hour Intake 1454 ml Output 1760 ml Net -306 ml 10/16 190 - 10/18 0700 In: 1454 [I.V.:1454] Out: 1760 [Urine:1750] Exam Physical Exam Constitutional: He is oriented to person, place, and time. He appears well-developed and we ll-nourished. Cardiovascular: Normal rate. Pulmonary/Chest: Effort normal. Abdominal: Soft. He exhibits no distension and no mass. There is no tenderness. There is no rebound and no guarding. No hernia. Neurological: He is alert and oriented to person, place, and time. Skin: Skin is warm and dry. Psychiatric: He has a normal mood and affect. His behavior is normal. Nursing note and vitals reviewed. Labs: @ Recent Labs Lab 10/18/18 0425 WBC 11.55* HGB 11.2* HCT 34.6* PLT 276 Recent Labs Lab 10/18/18 0425 CO2 26 BUN 18 No results for input(s): APT, INR in the last 168 hours. Scheduled Meds: acetaminophen 1,000 mg Oral 3 times per day baclofen 10 mg Oral TID capsaicin Topical BID celecoxib 200 mg Oral BID enoxaparin 40 mg Subcutaneous Daily gabapentin 600 mg Oral BID nortriptyline 25 mg Oral Nightly pantoprazole 40 mg Oral QAM AC tamsulosin 0.4 mg Oral Daily after breakfast Continuous Infusions: balanced electrolytes in water - pH 7.4 100 mL/hr at 10/17/18 1040 PRN Meds:.HYDROmorphone, ondansetron, ondansetron, oxyCODONE Assessment 43 y.o. male 1 Day Post-Op s/p ileocolostomy reversal whose bowel function is returning Plan / Recommendations -Encourage ambulation -FLD ok, If he continues to do well advance to low residue diet -Wet to dry dressing changes TID to ostomy takedown site -Decrease IVF to 50 mls/hr -D/C planning for tomorrow A/P discussed with Dr. Cardenas. DELANEY Lilly 12:31; 10/18/2018 Polly Wright RN - 10/18/2018 5:24 AM PDTEnd of shift chart review complete. documented in this encounter Plan of Treatment Not on filedocumented as of this encounter Procedures + +--------+ + + + | Procedure Name | Priori | Date/Time | Associated Diagnosis | Comments | | | ty | | | | + +--------+ + + + | CBC NO DIFFERENTIAL | Routin | 10/18/2018 | | Results for this | | | e | 4:25 AM | | procedure are in the | | | | PDT | | results section. | + +--------+ + + + | BASIC METABOLIC | Routin | 10/18/2018 | | Results for this | | PANEL | e | 4:25 AM | | procedure are in the | | | | PDT | | results section. | + +--------+ + + + | ILEOSTOMY REVISION | | 10/17/2018 | Infectious colitis | | | | | 11:45 AM | | | | | | PDT | | | + +--------+ + + + +---+--------+ | | | | | Specia | | | l | | | Needs | | | Pt is | | | an | | | inmate | | | - two | | | | | | sharma | | | | | | (needs | | | to | | | remain | | | 2nd | | | case | | | of | | | day) | +---+--------+ + +------+ +---+ + | TYPE AND SCREEN | STAT | 10/17/2018 | | Results for this | | | | 10:34 AM | | procedure are in the | | | | PDT | | results section. | + +------+ +---+ + documented in this encounter Results CBC no Differential (10/18/2018 4:25 AM PDT) + + + + + + | Component | Value | Ref Range | Performed | Pathologist | | | | | At | Signature | + + + + + + | WBC | 11.55 (H) | 3.80 - 11.00 | [facility] | | | | | K/uL | LABORATORY | | + + + + + + | RBC | 4.46 | 4.20 - 5.70 | [facility] | | | | | M/uL | LABORATORY | | + + + + + + | Hemoglobin | 11.2 (L) | 13.2 - 17.0 | [facility] | | | | | g/dL | LABORATORY | | + + + + + + | Hematocrit | 34.6 (L) | 39.0 - 50.0 % | [facility] | | | | | | LABORATORY | | + + + + + + | MCV | 77.5 (L) | 80.0 - 100.0 fl | [facility] | | | | | | LABORATORY | | + + + + + + | MCH | 25.1 (L) | 27.0 - 34.0 pg | [facility] | | | | | | LABORATORY | | + + + + + + | MCHC | 32.4 | 32.0 - 35.5 | [facility] | | | | | g/dL | LABORATORY | | + + + + + + | RDW-SD | 45.9 | 37 - 53 fl | [facility] | | | | | | LABORATORY | | + + + + + + | Platelet | 276 | 150 - 400 K/uL | [facility] | | | Count | | | LABORATORY | | + + + + + + | MPV | 8.1Comment: Testing | fl | RICK | | | | performed at [facility], [address] | | LABORATORY | | | | [address], | | | | | | [place] [address] | | | | + + + + + + + + | Specimen | + + | Blood | + + + + + + + | Performing | Address | City/State/Zipcode | Phone Number | | Organization | | | | + + + + + | [facility] | [address] | [place] [address] | [phone] | + + + + + Basic Metabolic Panel (10/18/2018 4:25 AM PDT) + + + + + + | Component | Value | Ref Range | Performed | Pathologist | | | | | At | Signature | + + + + + + | Na | 139 | 135 - 145 | [facility] | | | | | mmol/L | LABORATORY | | + + + + + + | K | 3.9 | 3.5 - 4.9 | [facility] | | | | | mmol/L | LABORATORY | | + + + + + + | Cl | 104 | 99 - 109 mmol/L | [facility] | | | | | | LABORATORY | | + + + + + + | CO2 | 26 | 23 - 32 mmol/L | [facility] | | | | | | LABORATORY | | + + + + + + | Anion Gap | 13 | 5 - 20 mmol/L | [facility] | | | | | | LABORATORY | | + + + + + + | Glucose | 120 (H) | 65 - 99 mg/dL | [facility] | | | | | | LABORATORY | | + + + + + + | BUN | 18 | 8 - 25 mg/dL | [facility] | | | | | | LABORATORY | | + + + + + + | Creatinine | 0.9 | 0.70 - 1.30 | [facility] | | | | | mg/dL | LABORATORY | | + + + + + + | BUN/Creatin | 20 | | [facility] | | | ine Ratio | | | LABORATORY | | + + + + + + | Calcium | 8.9 | 8.5 - 10.5 | [facility] | | | | | mg/dL | LABORATORY | | + + + + + + | Estimated | >60Comment: GFR <60: | >60 | [facility] | | | GFR | CHRONIC KIDNEY DISEASE, | mL/min/1.73m2 | LABORATORY | | | | IF FOUND OVER A 3 MONTH | | | | | | PERIOD.GFR <15: KIDNEY | | | | | | FAILURE.FOR | | | | | | AMERICANS, MULTIPLY THE | | | | | | CALCULATED GFR BY | | | | | | 1.210.This eGFR is | | | | | | calculated using the | | | | | | MDRD IDMS traceable | | | | | | equation.Testing | | | | | | performed at [facility], [address] | | | | | | [address], | | | | | | [place] [address] | | | | + + + + + + + + | Specimen | + + | Blood | + + + + + + + | Performing | Address | City/State/Zipcode | Phone Number | | Organization | | | | + + + + + | [facility] | [address] | [place] [address] | [phone] | + + + + + Type and Screen (10/17/2018 10:34 AM PDT) + + + + + + | Component | Value | Ref Range | Performed | Pathologist | | | | | At | Signature | + + + + + + | ABO Rh | A POSITIVE | | [facility] | | | | | | LABORATORY | | + + + + + + | Antibody | NEGATIVE | | [facility] | | | Screen | | | LABORATORY | | + + + + + + | BB BAND | [id number] | | [facility] | | | | | | LABORATORY | | + + + + + + | BB BAND | Testing performed at | | [facility] | | | | [facility];[address] | LABORAT[address] | | | | [address];[place] [address] | | | | + + + + + + + + | Specimen | + + | Blood - Right upper | | arm structure (body | | structure) | + + + + + + + | Performing | Address | City/State/Zipcode | Phone Number | | Organization | | | | + + + + + | [facility] | [address] | [place] [address] | [phone] | + + + + + documented in this encounter Visit Diagnoses + + | Diagnosis | + + | Status post Jack procedure (HCC) | + + documented in this encounter Administered Medications + +--------+ + +------+------+ | Medication Order | MAR | Action | Dose | Rate | Site | | | Action | Date | | | | + +--------+ + +------+------+ | acetaminophen (TYLENOL) tablet | Given | 10/18/19 | 1,000 mg | | | | 1,000 mg 1,000 mg, Oral, SEE | | 19 10:32 | | | | | ADMIN INSTRUCTIONS, Starting Mon | | AM PDT | | | | | 10/17/18 at 0958, For 1 dose, | | | | | | | Nursing to give 60 minutes before | | | | | | | time of surgery, Pre-op | | | | | | + +--------+ + +------+------+ +---+---+ | | | +---+---+ + +-------+ + +---+---+ | acetaminophen (TYLENOL) tablet | Given | 10/20/19 | 1,000 mg | | | | 1,000 mg 1,000 mg, Oral, EVERY 8 | | 19 6:08 | | | | | HOURS (3 times per day), First | | AM PDT | | | | | dose on Wed10/17/18 at 1800, | | | | | | | Start 8 hours after pre-op dose., | | | | | | | Post-op/Phase II | | | | | | + +-------+ + +---+---+ +-------+ + +---+---+ | Given | 10/19/19 | 1,000 mg | | | | | 19 9:44 | | | | | | PM PDT | | | | +-------+ + +---+---+ | Given | 10/19/19 | 1,000 mg | | | | | 19 2:58 | | | | | | PM PDT | | | | +-------+ + +---+---+ +---+---+ | | | +---+---+ + +-------+ +-------+---+---+ | baclofen (LIORESAL) tablet 10 | Given | 10/20/19 | 10 mg | | | | mg 10 mg, Oral, 3 TIMES DAILY, | | 19 8:50 | | | | | First dose on Wed10/17/18 at 1615 | | AM PDT | | | | + +-------+ +-------+---+---+ +-------+ +-------+---+---+ | Given | 10/19/19 | 10 mg | | | | | 19 9:48 | | | | | | PM PDT | | | | +-------+ +-------+---+---+ | Given | 10/19/19 | 10 mg | | | | | 19 2:58 | | | | | | PM PDT | | | | +-------+ +-------+---+---+ +---+---+ | | | +---+---+ + +---------+ +---+---+---+ | balanced electrolytes in water | New [...] | | | | | + +---------+ +---+---+---+ +---------+ +---+-------+---+ | New Bag | 10/18/19 | | 100 | | | | 19 10:40 | | mL/hr | | | | AM PDT | | | | +---------+ +---+-------+---+ +---+---+ | | | +---+---+ + +-------+ +--------+---+---+ | celecoxib (CELEBREX) capsule | Given | 10/18/19 | 200 mg | | | | 200 mg 200 mg, Oral, SEE ADMIN | | 19 10:32 | | | | | INSTRUCTIONS, Starting Mon | | AM PDT | | | | | 10/17/18 at 0958, For 1 dose, | | | | | | | Nursing to give 60 minutes before | | | | | | | time of surgery, Pre-op | | | | | | + +-------+ +--------+---+---+ +---+---+ | | | +---+---+ + +-------+ +--------+---+---+ | celecoxib (CELEBREX) capsule | Given | 10/19/19 | 200 mg | | | | 200 mg 200 mg, Oral, 2 TIMES | | 19 9:43 | | | | | DAILY, First dose on Wed10/17/18 | | PM PDT | | | | | at 2100, For 3 doses, If urine | | | | | | | output is less than 240ml/8 hours | | | | | | | (30ml/hr) or if signs of | | | | | | | bleeding, contact MD and hold., | | | | | | | Post-op/Phase II | | | | | | + +-------+ +--------+---+---+ +-------+ +--------+---+---+ | Given | 10/19/19 | 200 mg | | | | | 19 8:15 | | | | | | AM PDT | | | | +-------+ +--------+---+---+ | Given | 10/18/19 | 200 mg | | | | | 19 9:13 | | | | | | PM PDT | | | | +-------+ +--------+---+---+ +---+---+ | | | +---+---+ + +-------+ +-------+---+ + | enoxaparin (LOVENOX) 40 mg/0.4 | Given | 10/20/19 | 40 mg | | Abdomen- | | mL injection 40 mg 40 mg, | | 19 8:50 | | | RLQ | | Subcutaneous, EVERY 24 HOURS | | AM PDT | | | | | (Daily), First dose on Mon | | | | | | | 10/17/18 at 1615, Give first dose | | | | | | | within 20 hours of surgery end | | | | | | | time. Nursing/Pharmacy to retime | | | | | | | first dose to 1900 for surgeries | | | | | | | ending between 2200 and 0900. , | | | | | | | Post-op/Phase II | | | | | | + +-------+ +-------+---+ + +-------+ +-------+---+ + | Given | 10/19/19 | 40 mg | | Abdomen- | | | 19 8:15 | | | LLQ | | | AM PDT | | | | +-------+ +-------+---+ + | Given | 10/18/19 | 40 mg | | Abdomen- | | | 19 4:40 | | | LUQ | | | PM PDT | | | | +-------+ +-------+---+ + +---+---+ | | | +---+---+ + +-------+ +--------+---+---+ | fentaNYL (PF) injection 25-50 | Given | 10/18/19 | 25 mcg | | | | mcg 25-50 mcg, Intravenous, | | 19 2:40 | | | | | EVERY 5 MIN PRN, Pain, Initial | | PM PDT | | | | | postop urgent pain or escalating | | | | | | | pain, Starting 10/17/18 at | | | | | | | 1319, For 4 doses, (2 doses | | | | | | | maximum for opioid naive, 4 doses | | | | | | | maximum for opioid tolerant) | | | | | | | First dose must be lowest dose. | | | | | | | Use Pasero Sedation Scale. | | | | | | | [Opioid tolerant = One week or | | | | | | | longer, dgnbat-bxp-taild use of | | | | | | | at least the following DAILY | | | | | | | dose: 60mg oral morphine, 60mg | | | | | | | oral hydrocodone, 30mg oral | | | | | | | oxycodone, 8mg oral | | | | | | | hydromorphone, fentanyl patch | | | | | | | 25mcg/hr, or equivalent dose of | | | | | | | another opioid], Recovery/Phase I | | | | | | + +-------+ +--------+---+---+ +-------+ +--------+---+---+ | Given | 10/18/19 | 25 mcg | | | | | 19 2:35 | | | | | | PM PDT | | | | +-------+ +--------+---+---+ | Given | 10/18/19 | 50 mcg | | | | | 19 2:28 | | | | | | PM PDT | | | | +-------+ +--------+---+---+ +---+---+ | | | +---+---+ + +-------+ +--------+---+---+ | gabapentin (NEURONTIN) capsule | Given | 10/18/19 | 300 mg | | | | 300 mg 300 mg, Oral, SEE ADMIN | | 19 10:32 | | | | | INSTRUCTIONS, Starting Mon | | AM PDT | | | | | 10/17/18 at 0958, For 1 dose, | | | | | | | Nursing to give 60 minutes before | | | | | | | time of surgery, Pre-op | | | | | | + +-------+ +--------+---+---+ +---+---+ | | | +---+---+ + +-------+ +--------+---+---+ | gabapentin (NEURONTIN) capsule | Given | 10/20/19 | 600 mg | | | | 600 mg 600 mg, Oral, 2 TIMES | | 19 8:49 | | | | | DAILY, First dose on Wed10/17/18 | | AM PDT | | | | | at 2100 | | | | | | + +-------+ +--------+---+---+ +-------+ +--------+---+---+ | Given | 10/19/19 | 600 mg | | | | | 19 9:44 | | | | | | PM PDT | | | | +-------+ +--------+---+---+ | Given | 10/19/19 | 600 mg | | | | | 19 8:15 | | | | | | AM PDT | | | | +-------+ +--------+---+---+ +---+---+ | | | +---+---+ + +-------+ +--------+---+---+ | HYDROmorphone (DILAUDID) | Given | 10/18/19 | 0.5 mg | | | | injection 0.25-0.5 mg 0.25-0.5 | | 19 2:08 | | | | | mg, Intravenous, EVERY 5 MIN PRN, | | PM PDT | | | | | Pain, Starting Wed10/17/18 at | | | | | | | 1319, First dose must be lowest | | | | | | | dose, can increase subsequent | | | | | | | doses by 0.25 mg within dosing | | | | | | | range. If patient meets opioid | | | | | | | tolerant definition, can start | | | | | | | with 0.5 mg dose. [Maximum total | | | | | | | PACU dose 4mg] Use Pasero | | | | | | | Sedation Scale. [Opioid tolerant | | | | | | | = One week or longer, | | | | | | | vawyva-qhn-rdclk use of at least | | | | | | | the following DAILY dose: 60mg | | | | | | | oral morphine, 60mg oral | | | | | | | hydrocodone, 30mg oral oxycodone, | | | | | | | 8mg oral hydromorphone, fentanyl | | | | | | | patch 25mcg/hr, or equivalent | | | | | | | dose of another opioid], | | | | | | | Recovery/Phase I | | | | | | + +-------+ +--------+---+---+ +-------+ +--------+---+---+ | Given | 10/18/19 | 0.5 mg | | | | | 19 1:59 | | | | | | PM PDT | | | | +-------+ +--------+---+---+ +---+---+ | | | +---+---+ + +-------+ +------+---+---+ | oxyCODONE (ROXICODONE) tablet | Given | 10/20/19 | 5 mg | | | | 5-20 mg 5-20 mg, Oral, EVERY 3 | | 19 1:08 | | | | | HOURS PRN, Pain, Starting Mon | | PM PDT | | | | | 10/17/18 at 1551, First dose must | | | | | | | be the lowest dose, can titrate | | | | | | | to effective dose by repeat of | | | | | | | lowest dose every 60 minutes prn | | | | | | | pain, may not exceed maximum dose | | | | | | | ordered per interval. Use Pasero | | | | | | | Sedation Scale., Post-op/Phase | | | | | | | II | | | | | | + +-------+ +------+---+---+ +-------+ +-------+---+---+ | Given | 10/20/19 | 5 mg | | | | | 19 1:04 | | | | | | PM PDT | | | | +-------+ +-------+---+---+ | Given | 10/20/19 | 10 mg | | | | | 19 8:49 | | | | | | AM PDT | | | | +-------+ +-------+---+---+ +---+---+ | | | +---+---+ + +-------+ +-------+---+---+ | pantoprazole (PROTONIX) DR | Given | 10/20/19 | 40 mg | | | | tablet 40 mg 40 mg, Oral, DAILY | | 19 6:08 | | | | | BEFORE BREAKFAST, First dose on | | AM PDT | | | | | 10/17/18 at 1615, Indication: | | | | | | | Bleed, upper GI | | | | | | + +-------+ +-------+---+---+ +-------+ +-------+---+---+ | Given | 10/19/19 | 40 mg | | | | | 19 6:42 | | | | | | AM PDT | | | | +-------+ +-------+---+---+ | Given | 10/18/19 | 40 mg | | | | | 19 4:37 | | | | | | PM PDT | | | | +-------+ +-------+---+---+ +---+---+ | | | +---+---+ + +-------+ +--------+---+---+ | tamsulosin (FLOMAX) capsule 0.4 | Given | 10/20/19 | 0.4 mg | | | | mg 0.4 mg, Oral, DAILY AFTER | | 19 8:50 | | | | | BREAKFAST, First dose on Mon | | AM PDT | | | | | 10/17/18 at 1615, May open capsule | | | | | | | and sprinkle over acidic soft | | | | | | | food (applesauce, yogurt) or in a | | | | | | | small quantity of acidic fruit | | | | | | | juice (orange, grape). Do not | | | | | | | crush, chew or dissolve | | | | | | | granules., | | | | | | + +-------+ +--------+---+---+ +-------+ +--------+---+---+ | Given | 10/19/19 | 0.4 mg | | | | | 8:15 | | | | | | AM PDT | | | | +-------+ +--------+---+---+ | Given | 10/18/19 | 0.4 mg | | | | | 19 4:37 | | | | | | PM PDT | | | | +-------+ +--------+---+---+ +---+---+ | | | +---+---+ documented in this encounter"
--- OUTSIDE RECORDS SUMMARY | ~2019-02-14 | XMS | Encounter Summary ---
Demographics + + + | Address | [address] [place] [address] | | | [place] [address] | + + + | Home Phone | | + + + | Preferred Language | Unknown | + + + | Marital Status | Unknown | + + + | Scientologist Affiliation | Unknown | + + + [...] Team Providers + +------+ + | Care Security Alarm Installer Name | Role | Phone | + +------+ + | No, Physician | PCP | Unavailable | + +------+ + Encounter Details +--------+---------+ + + + | Date | Type | Department | Care Team | Description | +--------+---------+ + + + | 11/01/ | Office | [facility] | Fidelina, | Surgery follow-up | | 2019 | Visit | GENERAL SURGERY [address] | [address] | (Primary Dx); | | | | [address] | [address] | Infectious colitis | | | | [place] | [place] [address] | | | | | [address] | [phone] | | | | | [phone] | | | +--------+---------+ + + + Social History + +-------+ [...] + documented as of this encounter Progress Jam Ramon ARNP - 11/01/2018 1:20 PM PDT Colorectal Surgery Post Operative Follow up note Matthias Lambert : 1975 Surgery:reversal of ileocolostomy Date of Surgery: 10/17/2018 DATE OF VISIT: 11/01/2018 SUBJECTIVE: HPI: Pt is doing well. No complaints at this time. Abdominal pain no Diarrhea no Constipation no Fevers or chills no Nausea or vomiting no Blood in stool no Mild incontinence no Incisional pain yes Pain improving yes Drainage no Pathology: OBJECTIVE There were no vitals filed for this visit. Abdominal Exam Wound closed yes Wound clean yes Vicenta/Sutures yes Hernia noted no Wound drainage no Wound erythema no Seroma noted no IMPRESSION: SP ileostomy reversal who is doing well PLAN: 1. Follow up as needed 2. Remove vicenta/sutures today 3. General diet ok 4. Continue lifting restrictions for another 2 weeks 5. Surgically dismissed DELANEY Lilly 13:15 11/01/18 documented in th is encounter Plan of Treatment Not on filedocumented as of this encounter Visit Diagnoses + + | Diagnosis | + + | Surgery follow-up - Primary Follow-up examination, following unspecified surgery | + + | Infectious colitis Infectious colitis, enteritis, and gastroenteritis | + + documented in this encounter"
--- OUTSIDE RECORDS SUMMARY | ~2019-02-14 | XMS | Encounter Summary ---
Demographics + + + | Address | [address] [place] [address] | | | [place] [address] | + + + | Home Phone | | + + + | Preferred Language | Unknown | + + + | Marital Status | Unknown | + + + | Druze Affiliation | Unknown | + + + | Race | Unknown | + + + | Ethnic Group | Unknown | + + + Author + + + | Author | [facility] | | | and [place] | + + + | Organization | [facility] | | | [...] Team Providers + +------+ + | Care Carpenter Mate Name | Role | Phone | + +------+ + | No, Physician | PCP | Unavailable | + +------+ + Encounter Details +--------+ + + + + | Date | Type | Department | Care Team | Description | +--------+ + + + + | 05/03/ | Orders Only | [facility] | Wale Sandoval, | | | 2018 | | CONVERSION DEP [address] | MD [address] | | | | | [address] | [place] [address] | | | | | [place], [place] | [phone] | | | | | [address] | | | | | | [phone] | | | +--------+ + + + [...]
--- OUTSIDE RECORDS SUMMARY | ~2019-02-14 | XMS | Encounter Summary ---
Demographics + + + | Address | [address] [place] [address] | | | [place] [address] | + + + | Home Phone | | + + + | Preferred Language | Unknown | + + + | Marital Status | Unknown | + + + | Mandaen Affiliation | Unknown | + + + | Race | Unknown | + + + | Ethnic Group | Unknown | + + + Author + + + | Author | [facility] | | | and [place] | + + + | Organization | [facility] | | [...] Team Providers + +------+ + | Care Tribal Council Member Name | Role | Phone | + [...] Provider Unknown | | | | [facility] [place] [place] | | | | | | [address] | (Fax) | | | | | [phone] | | | +--------+ + + + [...]
--- OUTSIDE RECORDS SUMMARY | ~2019-02-14 | XMS | Encounter Summary ---
Demographics + + + | Address | [address] [place] [address] | | | [place] [address] | + + + | Home Phone | | + + + | Preferred Language | Unknown | + + + | Marital Status | Unknown | + + + | Jainism Affiliation | Unknown | + + + | Race | Unknown | + + + | Ethnic Group | Unknown | + + + Author + + + | Author | [facility] | | | and [place] | + + + | Organization | [facility] | | [...] Team Providers + +------+ + | Care Pillowcase Cleaner Name | Role | Phone | + [...] + | 10/17/ | Anesthesia | [facility] | Yaritza Oliveros | | | 2019 | Event | [facility] | K, PIPE FITTER APPRENTICE [address] | | | | [address] [place], [place] | | | | | [facility] | [address] | | | | | [place], [place] | | | | | | [address] | | | | | | [phone] | | | +--------+ + + + + Anesthesia Record + + + + + | Procedure Name | Responsible | Anesthesia Start | Anesthesia Stop Time | | | Anesthesiologist | Time | | + + + + + | ILEOSTOMY REVISION | Yaritza Oliveros, | 10/17/18 1201 | 10/17/18 1332 | | (N/A Abdomen) | PIPE FITTER APPRENTICE | | | + + + + [...] 10/19/18 1220 by | | eral | [id number] catheter system; | Angelica Hernandez | Pam [...] | | | procedure documentation); Mask | PIPE FITTER APPRENTICE | PIPE FITTER APPRENTICE | | | Ventilation: N/A; Airway Grade: [...] | specific surgical procedure; | Michaela A [place], | Michaela A [place], | | Cathet | Perineum cleaned, Second [...] Note | + + | Yaritza Oliveros, PIPE FITTER APPRENTICE - 10/17/2018 12:20 PM PDT Anesthesia Airway [...]
--- OUTSIDE RECORDS SUMMARY | ~2019-02-14 | XMS | Encounter Summary ---
Demographics + + + | Address | [address] [place] [address] | | | [place] [address] | + + + | Home Phone | | + + + | Preferred Language | Unknown | + + + | Marital Status | Unknown | + + + | Yarsanism Affiliation | Unknown | + + + | Race | Unknown | + + + | Ethnic Group | Unknown | + + + Author + + + | Author | [facility] | | | and [place] | + + + | Organization | [facility] | | [...] Team Providers + +------+ + | Care Icebox Man Name | Role | Phone | + [...] Provider Unknown | | | | | [place] | | | | | | [address] | (Fax) | | | | | [phone] | | | +--------+ + + + [...]
--- OUTSIDE RECORDS SUMMARY | ~2019-02-14 | XMS | Clinical Summary ---
Demographics + + + | Address | [address] | | | [place] [address] | + + + | Home Phone [...] + + | Author | [facility] (Historical as of | | | 10-15-18) | + + + | Organization | [facility] (Historical as of | | | 10-15-18) [...] Team Providers + +------+ + | Care Dehydrogenation Supervisor Name | Role | Phone | [...] N/A: | [facility] | | 08/11/ | [id number] | | 11/27/2016 by Douglas Logan, | | Spine | | | 2024 | 4 / | | DO | | Cervic | | | | /[id number] | | | | al | | | | 583 | + +------+--------+ +--------+--------+--------+ | End CapImplanted: Qty: 1 on | | N/A: | [facility] | | 09/07/ | [id number] | | 11/27/2016 by Douglas Logan, | | Spine | | | 2024 | 4 / | | DO | | Cervic | | | | /[id number] | | | | al | | | | 151 | + +------+--------+ +--------+--------+--------+ | Algrft Bone Dbm Putty Dbx | | N/A: | MTF - | | 07/28/ | [id number] | | 1.0c - | | Spine | SYNTHES - | 2018 | | | [id number]: | | Cervic | MTFS | | | /[id number] | | Qty: 1 on 11/27/2016 by | | al | | | | [id number] | | Douglas Logan, DO | | | | | | [id number] | | | | | | | | 3 / | + +------+--------+ +--------+--------+--------+ | Plate Francisco V-Elite 37.5 2l | | N/A: | [facility] - | | | [id number] | | Cerv - [id number]: | | Spine | MEDT | | | | | Qty: 1 on 11/27/2016 by | | Joeic | | | | | | Douglas Logan DO | | al | | | | | + +------+--------+ +--------+--------+--------+ | Screw Slf-Drl V/A 4.0x14mm - | | N/A: | [facility] - | | | [id number] | | [id number]: Qty: 2 on | | Spine | MEDT | | | | | 11/27/2016 by Doreen, | | Jean Paul | | | | | | DO Douglas | | al | | | | | + +------+--------+ +--------+--------+--------+ | Screw Slf-Drl V/A 4.0x15mm - | | N/A: | [facility] - | | | [id number] | | [id number]: Qty: 2 on | | Spine | MEDT | | | | | 11/27/2016 by oDreen, | | Joeic | | | | | | DO Douglas | | al | | | | | + +------+--------+ +--------+--------+--------+ | Screw Slf-Drl V/A 4.0x16mm - | | N/A: | [facility] - | | | [id number] | | [id number]: Qty: 2 on | | Spine | [...] +------+-------+---------+ | [facility] | [facility] | [id number] | | | | | | RECTIO [...] Other | [birth year] | Home: | [address] | | [place] | tional | | 1976 | [phone] | [place] | | | | | | [address] | [address] | | | Facili | | | | | | | ty | | | | | + +--------+ +--------+ + + | SHANE LAMBERT | Person | Self | [birth year] | Home: | [address] [place] [address] | | | germaine/Harish | | 1976 | [phone] | [place] [address] | | | alondra | | | [phone] | | + +--------+ +--------+ + +
--- OUTSIDE RECORDS SUMMARY | ~2019-02-14 | XMS | Encounter Summary ---
Demographics + + + | Address | [address] [place] [address] | | | [place] [address] | + + + | Home Phone | | + + + | Preferred Language | Unknown | + + + | Marital Status | Unknown | + + + | Yazidism Affiliation | Unknown | + + + | Race | Unknown | + + + | Ethnic Group | Unknown | + + + Author + + + | Author | [facility] | | | and [place] | + + + | Organization | [facility] | | | and [...] Team Providers + +------+ + | Care Refinery Operator Assistant Name | Role | Phone | + +------+ + | No, Physician | PCP | Unavailable | + +------+ + Reason for Visit +--------+ + | Reason | Comments | +--------+ + | Other | | +--------+ + Encounter Details +--------+ + + + + | Date | Type | Department | Care Team | Description | +--------+ + + + + | 10/24/ | Telephone | [facility] | [facility] [place], | Other | | 2019 | | [facility] | MD [address] | | | | | PHYSICAL MEDICINE | [address] [place], | | | | | [facility] REH[facility] | [place] [address] | | | | | [address] [place] | [phone] | | | | | [place] | | | | | | [address] | | | | | | [phone] | | | +--------+ + + + [...]
--- OUTSIDE RECORDS SUMMARY | ~2019-02-14 | XMS | Encounter Summary ---
Demographics + + + | Address | [address] [place] [address] | | | [place] [address] | + + + | Home Phone [...] Team Providers + +------+ + | Care Juvenile Corrections Officer Name | Role | Phone | + [...] Provider Unknown | | | | | [place] | | | | | | [address] | (Fax) | | | | | [phone] | | | +--------+ + + + [...]
--- OUTSIDE RECORDS SUMMARY | ~2019-02-14 | XMS | Encounter Summary ---
Demographics + + + | Address | [address] [place] [address] | | | [place] [address] | + + + | Home Phone | | + + + | Preferred Language | Unknown | + + + | Marital Status | Unknown | + + + | Druze Affiliation | Unknown | + + + | Race | Unknown | + + + | Ethnic Group | Unknown | + + + Author + + + | Author | [facility] | | | and [place] | + + + | Organization | [facility] | | | and [...] Team Providers + +------+ + | Care Freelance Patternmaker Name | Role | Phone | + [...] Unknown | | | | | [facility] [place] | | | | | | [address] | (Fax) | | | | | [phone] | | | +--------+ + + + [...]
--- OUTSIDE RECORDS SUMMARY | ~2019-02-14 | XMS | Encounter Summary ---
Demographics + + + | Address | [address] [place] [address] | | | [place] [address] | + + + | Home Phone | | + + + | Preferred Language | Unknown | + + + | Marital Status | Unknown | + + + | Yarsani Affiliation | Unknown | + + + | Race | Unknown | + + + | Ethnic Group | Unknown | + + + Author + + + | Author | [facility] | | | and [place] | + + + | Organization | [facility] | | | [...] Team Providers + +------+ + | Care Apparel Pattern Maker Name | Role | Phone | + [...] | | | | AND REHABILITATION | [place] [address] | | | | | [address] [place] | [phone] | | | | | [place] | | | | | | [address] | | | | | | [phone] | | | +--------+ + + + [...]
--- OUTSIDE RECORDS SUMMARY | ~2019-02-14 | XMS | Clinical Summary ---
Demographics + + + | Address | [address] [place] [address] | | | [place] [address] | + + + | Home Phone | | + + + | Preferred Language | Unknown | + + + | Marital Status | Unknown | + + + | Gnosticism Affiliation | Unknown | + + + | Race | Unknown | + + + | Ethnic Group | Unknown | + + + Author + + + | Author | [facility] | | | and [place] | + + + | Organization | [facility] | | | and [...] Team Providers + +------+ + | [employer] Administrator Name | Role | Phone | [...] | | 2018 | Encounter | | HYDROTHERAPIST | weakness | | | | | | (generalized); | | | | | | Acquired diplegia | | | | | | (HCC) | +--------+ + + + + | 02/01/ | Hospital | Radiology | Tawana Gan, | Weakness; Muscle | | 2018 | Encounter | | HYDROTHERAPIST 1, [facility] | weakness | | | | | Nurse Radiologist, | (generalized); | | | | | [facility] | Acquired diplegia | | | [...] | [employer] - | | 08/11/ | [id number] | | 11/27/2016 by Douglas Logan, | | Spine | MEDT | | 2024 | 4 / | | DO | | Cervic | | | | [id number] | | | | al | | | | 583 | + +------+--------+ +--------+--------+--------+ | End CapImplanted: Qty: 1 on | | N/A: | [employer] - | | 09/07/ | [id number] | | 11/27/2016 by Douglas Logan, | | Spine | MEDT | | 2024 | 4 / | | DO | | Cervic | | | | /[id number] | | | | al | | | | 151 | + +------+--------+ +--------+--------+--------+ | Algrft Bone Dbm Putty Dbx | | N/A: | MTF - | | 07/28/ | [id number] | | 1.0c - | | Spine | SYNTHES - | | 2019 | | | [id number]: | | Cervic | MTFS | | | /[id number] | | Qty: 1 on 11/27/2016 by | | al | | | | [id number] | | Douglas Logan DO | | | | | | [id number] | | | | | | | | 3 / | + +------+--------+ +--------+--------+--------+ | Plate Francisco V-Elite 37.5 2l | | N/A: | [facility] - | | | [id number] | | Cerv - [id number]: | | Spine | MEDT | | | 7 / / | | Qty: 1 on 11/27/2016 by | | Cervic | | | | | | Douglas Logan DO | | al | | | | | + +------+--------+ +--------+--------+--------+ | Screw Slf-Drl V/A 4.0x14mm - | | N/A: | [facility] - | | | [id number] | | [id number]: Qty: 2 on | | Spine | MEDT | | | 4 / / | | 11/27/2016 by Doreen, | | Cervic | | | | | | DO Douglas | | al | | | | | + +------+--------+ +--------+--------+--------+ | Screw Slf-Drl V/A 4.0x15mm - | | N/A: | [facility] - | | | [id number] | | [id number]: Qty: 2 on | | Spine | MEDT | | | 5 / | | 11/27/2016 by Doreen, | | Cervic | | | | | | DO Douglas | | al | | | | | + +------+--------+ +--------+--------+--------+ | Screw Slf-Drl V/A 4.0x16mm - | | N/A: | [facility] - | | | [id number] | | [id number]: Qty: 2 on | | Spine | [...] and posterior decompressive | | | laminectomies. Zpjh-sa-ddupvgeg bilateral neural foraminal | | | narrowing. No central canal stenosis. C6-C7: Postsurgical change | | | with anterior fusion and posterior decompressive laminectomy. | | | Gehs-ij-nfdovxzn bilateral neural foraminal narrowing. No central | [...] fusion and posterior | | decompressive laminectomies. Bezc-ct-wgfxwvrd bilateral neural | | foraminal narrowing. No central canal stenosis. | | | | C6-C7: Postsurgical change with anterior fusion and posterior | | decompressive laminectomy. Wgjg-hx-jsomcrct bilateral neural foraminal | | narrowing. No [...] [facility] | | | | performed at [facility] | | [facility] | | | | [address];[place] | | | | | | [address] | | | | + + + + + + + + | Specimen | + + | Blood | + + + + + + + | Performing | Address | City/State/Zipcode | Phone Number | | Organization | | | | + + + + + | [facility] | [address] | [place] [address] | [phone] | + + + + + El OWNES (02/01/2019 11:43 AM PST) + + + + + + | Component | Value | Ref Range | Performed | Pathologist | | | | | At | Signature | + + + + + + | INR | 1.0Comment: REFERENCE | | [facility] | | | | RANGE:0.9 - 1.2 [...] | | | | | performed at [facility] | | | | | | [address];[place], [place] | | | | | | [address] | | | | + + + + + + + + | Specimen | + + | Blood | + + + + + + + | Performing | Address | City/State/Zipcode | Phone Number | | Organization | | | | + + + + + | [facility] | [address] [facility] [facility] | [place] [address] | [phone] | + + + + + CBC [...] [facility] | | | | performed at [facility];[address] | | LABORATORY | | | | [address];[place] | | | | | | [address] | | | | + + + + + + + + | Specimen | + + | Blood | + + + + + + + | Performing | Address | City/State/Zipcode | Phone Number | | Organization | | | | + + + + + | [facility] | [address] | [place] [address] | [phone] | + + + + + from [...] +--------+-------+---------+--------+ | DEPARTMENT OF | CORRCT | [id number] | 05/05/19 | | | Indemn | [...] | ate | Relative | 1921 | [phone] | [place] [address] | | | | | | 9 (Home) | | | | | | | [phone] | | | | | | | 0 (Work) | | + +--------+ +--------+ + + Advance Directives + + + + + | Type | Date Recorded | Patient | Explanation | | | | Protozoologist | | + + + + + | Power of | | | | | Rn Stars | | | | + + + [...]
--- OUTSIDE RECORDS SUMMARY | ~2019-02-14 | XMS | Encounter Summary ---
Demographics + + + | Address | [address] [place] [address] | | | [place] [address] | + + + | Home Phone | | + + + | Preferred Language | Unknown | + + + | Marital Status | Unknown | + + + | Samaritan Affiliation | Unknown | + + + | Race | Unknown | + + + | Ethnic Group | Unknown | + + + Author + + + | Author | [facility] | | | and [place] | + + + | Organization | [facility] | | | and [...] Team Providers + +------+ + | Care Machine Fixer Name | Role | Phone | + +------+ + PCP | Unavailable | + +------+ + Encounter Details +--------+ + + + + | Date | Type | Department | Care Team | Description | +--------+ + + + + | 04/19/ | Hospital | [facility] | Douglas Logan DO | Cervical | | 2019 - | Encounter | [facility] | [address] | radiculopathy at C6; | | | | CARE FLOOR [address] | Cervical | | 05/03/ | | [address] | [place] [address] | radiculopathy at C7; | | 2019 | | [place], [place] | [phone] | Degeneration of | | | | [address] | | intervertebral disc | | | | [phone] | | of cervical region; | | | | | | Bilateral carpal | | | | | | tunnel syndrome; | | | | | | Muscle weakness of | | | | | | upper extremity; | | | | | | Infectious colitis; | | | | | | Cervical myelopathy | | | | | | ([facility]); S/P | | | | | | laminectomy; Sepsis, | | | | | | due to unspecified | | | | | | organism ([facility]) | +--------+ + + + + Social [...] + + + | Blood Pressure | 131/87 | 05/03/2018 2:39 PM | | | | | PST | | + + + + + | Pulse | 106 | 05/03/2018 2:39 PM | | | | | PST | | + + + + + | Temperature | 36.9 C (98.5 F) | 05/03/2018 2:39 PM | | | | | PST | | + + + + + | Respiratory Rate | 18 | 05/03/2018 2:39 PM | | | | | PST | | + + + + + | Oxygen Saturation | - | - | | + + + + + | Inhaled Oxygen | - | - | | | Concentration | | | | + + + + + | Weight | 95 kg (209 lb 6.4 | 05/03/2018 2:39 PM | | | | oz) | PST | | + + + + + | Height | 180.3 cm (5' 11") | 05/03/2018 2:39 PM | | | | | PST | | + + + + + | Body Mass Index | 29.21 | 05/03/2018 2:39 PM | | | | | PST | | + + + + + documented in this encounter Discharge Summaries Douglas Logan DO - 05/03/2018 12:22 PM PST Discharge Summaries by Douglas Logan DO at 05/03/18 1222 Author: Douglas Logan DO Service: Neurosurgery Author Type: Physician Filed: 05/03/18 1236 Date of Service: 05/03/18 1222 Status: Signed Damper Maker: Douglas Logan DO (Physician) Neurosurgery Discharge Summary [facility] Neurosurgery Provider: Douglas Logan DO Date : 05/03/2018 12:23 PM Referring Provider: Hospital Day: LOS: 14 days Date of Admission: 04/19/2018 Date of Discharge: 05/03/2018 Discharge Physician: Douglas Logan Treatment Team: Treatment Team: Consulting Physician: Wing Ashok Chaudhry MD Consulting Physician: Samy Cardenas MD Consulting Physician: Oracio Villaseñor MD Consulting Physician: Wale Sandoval MD Admitting Provider: Douglas Logan DO Final / Discharge Diagnoses: Patient Active Problem List Diagnosis Bilateral carpal tunnel syndrome Cervical radiculopathy at C7 Cervical radiculopathy at C6 DDD (degenerative disc disease), cervical Muscle weakness of upper extremity Cervical myelopathy (HCC) S/P laminectomy Sepsis (HCC) Infectious colitis Principal Problem: Sepsis (HCC) Active Problems: Cervical myelopathy (HCC) S/P laminectomy Infectious colitis toxic megacolon Procedures: Procedure(s): COLECTOMY (N/A) EXPLORATION - LAPAROTOMY (N/A) ILEOSTOMY Posterior cervical laminectomy foramenotomy Past Medical History Diagnosis Date GERD (gastroesophageal reflux disease) History of stomach ulcers Neuromyopathy (HCC) Other chronic pain Seizures (HCC) 2002 none since then Past Surgical History Procedure Laterality Date CERVICAL FUSION N/A 11/27/2016 Procedure: CERVICAL - DISC & FUSION - ANTERIOR; Surgeon: Douglas Logan DO; Location: [facility] MA[facility] OR; Service: Neurosurgery; Laterality: N/A; C5-7 CERVICAL LAMINECTOMY N/A 04/19/2018 Procedure: CERVICAL - LAMINECTOMY POSTERIOR; Surgeon: Douglas Logan DO; Location: [facility] OR; Service: Neurosurgery; Laterality: N/A; Posterior Cervical Laminectomy, Foramino maxx five to seven. Possible adjacent levels. COLECTOMY N/A 04/25/2018 Procedure: COLECTOMY; Surgeon: Samy Cardenas MD; Location: [facility] MAIN OR; Service: G eneral; Laterality: N/A; ILEOSTOMY 04/25/2018 Procedure: ILEOSTOMY; Surgeon: Samy Cardenas MD; Location: [facility] OR; Service: G eneral;; LAPAROTOMY N/A 04/25/2018 Procedure: EXPLORATION - LAPAROTOMY; Surgeon: Samy Cardenas MD; Location: [facility] OR; Service: General; Laterality: N/A; LIPOMA RESECTION 2003 LIPOMA RESECTION 2012 SPINE SURGERY WISDOM TOOTH EXTRACTION Prescriptions Prior to Admission Medication Sig Dispense Refill Last Dose capsaicin (ZOSTRIX) 0.025 % cream Apply topically 2 (two) times daily. Taking at Unk nown time nortriptyline (PAMELOR) 25 MG capsule Take 25 mg by mouth nightly. 04/18/2018 at Unkno wn time omeprazole (PRILOSEC) 20 MG capsule Take 20 mg by mouth every morning before breakfast. 04/18/2018 at Unknown time No Known Allergies Brief History of Presentation: 11/29/2016 Matthias Webre a 41 y.o.malewith severe cervical stenosis status post anteri or cervical discectomy and fusion C5-C6 C6-7 with resolution of his radicular pain market im provement in symptoms with only routine postoperative surgical pain and trapezius muscle spa sm. Clinic Visit 04/19/2018: Matthias monte 42 y.o.malereturns to neurosurgery clinic wit h Neurosurgical followup status post anterior cervical diskectomy and fusion C5-7. Patient unfortunately is a [facility] patient, and despite our insistence, was not offered postoperative followup and followed with the local [facility] physician. Patient states after surgical interve ntion, he had remarkable recovery with regards to resolution of bilateral upper extremity ra diculopathy and increased strength in his bilateral hands, increased ambulation, balance, an d coordination. Patient was doing rather well for approximately 6 to 8 months until he sta rted having intermittent tingling down his left hand in the C6 and C7 dermatomal region. T his has returned and increased in nature. He was evaluated by his [facility] physician, who spencer ectly ordered a CT myelogram of the cervical and lumbar spine, which showed that there was s ome bony overgrowth which had reoccurred at the fusion sites including C5-6, C6-7, more towa rds the left neural foramen, and may be the etiology of the patient's recurrent symptoms. This is an over-healing and over-productive bone formation versus scar tissue which has comp ressed the exiting nerves. Patient, during the interim, also states he has undergone other interventions. Recently had an ocular infection, for which he has had drainage and treatm ent only a few days ago. Patient denies any profound or severe weakness of the right upper extremity. Left upper extremity has improved in strength since his initial preop state, b ut states that it was better few months ago. 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 Patient has been trying Neurontin; but because the [facility] c ontrolled the substances, not been getting it all the time. Patient does have what appears to be a lot of medical concerns for someone in [facility]. Admission Date - >04/19/2018 < - OR Date - Procedure(s): COLECTOMY (N/A) EXPLORATION - LAPAROTOMY (N/A) ILEOSTOMY - post op with paradoxical right UE RLE paralysis and hypersensitivity on left si de MRI imaging with diffuse edema in non operated and operated regions of the cervical and t horacic spine possibly diffuse demyelinating process Hospital Course: 04/20/2018 3:04 PM - RUE with some movement of hand, return of strength in RLE. Improvement of hypersensitivity of LUE LLE. 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 P colt was worked up for MS and told at a time that he may have a subtype of the disease. 04/21/2018 2:01 PM - marginal improvements in sensation and movement 04/22/2018 7:34 AM - Patient with some return of pain related to steroid wean 04/23/2018 10:35 AM - febrile with confusion, decreased PO intake. Urine changed to dark amb er color history of recent occular infection and prior abx cleared prior to surgery although with high dose steroids potential for UTI vs. Bacteremia unlikely incisional infection at t his time. CSF results still pending. Was having liquid BM yesterday now with abdominal pain 04/25/2018 8:03 AM - continued loose stools, intermittent episodes of confusion and left arm weakness with dilaudid. 04/26/2018 4:47 PM - patient much more alert today answering questions states allodynia of L UE with good improvement. Sensation increasing to entire RUE now tingling "like waking up" 04/27/2018 - in good spirits has improvement in proximal movement of right arm. Wants to dis continue baclofen 05/02/2018 8:28 AM - over weekend now able to use limited deltoid and minor bicept function. More movement of fingers. Routine incisional and abdominal pain. 05/03/2018 12:23 PM - Patient agreeable to discharge today. DISCHARGE EXAM Vital Signs: Last: Last 24hrs Vitals: 05/03/18 1153 BP: 131/87 Pulse: 106 Resp: 18 Temp: 98.5 F (36.9 C) SpO2: 98% Temp: [98.4 F (36.9 C)-99.4 F (37.4 C)] 98.5 F (36.9 C) Heart Rate: [88-109] 106 Resp: [16-18] 18 BP: (119-131)/(73-87) 131/87 Intake/Output Summary (Last 24 hours) at 05/03/18 1223 Last data filed at 05/03/18 1100 Gross per 24 hour Intake 7182.7 ml Output 9750 ml Net -2567.3 ml 05/03 0700 - 05/03 1859 In: 800 [P.O.:800] Out: 2700 [Urine:2700] 05/01 1900 - 05/03 0659 In: 6502.7 [P.O.:1037; I.V.:4891.5] Out: 72189 [Urine:7100] PHYSICAL EXAM: General: Pleasant, awake, alert, and oriented. In no acute distress, well developed, well n ourished. Speech fluent and approriate Skin:Skin color, texture, turgor normal. No rashes or lesions. HEENT: Normocephalic atraumatic Muscle Strength: Right Left Upper Extremity: 3/5 right deltoid and 2/5 bracialradialis, 1/5 hand movement and palpable bicept and forearm 5/5 able to give good strength Lower Extremity: 5/5 5/5 Wound:Clean, dry, and intact. No evidence of wound breakdown or infection Sensation:right s ided numbness Significant Diagnostic Studies: No results found. Recent Labs Lab 05/03/1870105/02/1842 WBC 11.54* 12.03* RBC 3.47* 3.40* HGB 10.0* 9.9* HCT 30.5* 30.2* PLT 390 372 BANDSABS 0.81* 0.24* No results for input(s): APTT, PROTIME, INR in the last 168 hours. Invalid input(s): FIBRINOGEN Lab Results Component Value Date TROPONINI <0.006 04/23/2018 Recent Labs Lab 05/03/1870105/02/18541 NA 144 143 K 4.2 4.4 CL 106 104 CO2 32 29 ANIONGAP 10 14 GLUF 103* 100* BUN 12 9 CREATININE 1.13 1.1 BCR 11 8 CA 7.4* 6.9* PHOS 3.7 2.7 MG 1.6* 1.7 Lab Results Component Value Date CLARITYU CLEAR 04/23/2018 LEUKOCYTESUR NEGATIVE 04/23/2018 NITRITE NEGATIVE 04/23/2018 UROBILINOGEN NORMAL 04/23/2018 UPRO 30 (A) 04/23/2018 PHUR 6.0 04/23/2018 BLOODU SMALL (A) 04/23/2018 KETONES NEGATIVE 04/23/2018 BILIRUBINUR NEGATIVE 04/23/2018 GLUCOSEU NEGATIVE 04/23/2018 PLAN Normal Post op pain management Most patients need at least 3 months of robaxin with tid dosing in the first month, bid in the second month after surgery and qday in the third month after surgery. For the oxycodone most patients need 1 month of 3-4 tablets per day by the second month nor estelle 1-2 tablets per day at 5mg dose. By 3 months patients don't often need further pain me ds other than tylenol For the Gabapentin with spinal cord edema and neuropathy will need extended use often minim um 3-6 months sometimes life long Strongly encourage physical/occupational therapy for RUE. WT limit 10lbs x 3 months but enc ourage ambulation Post op education: Extensive education and discussion regarding discharge undertaken with jovan gregory. Reviewed all home medications and risks of medications with the patient. Explained w ith patient the hospital and if applicable the operative course. All questions were answered . Instructions were given to the patient on signs and symptoms [facility] which [facility] Patient educated on warning signs of infection and instructions to return if those si gns occur. Patient voiced understanding of education and agrees with Disposition: Detention Condition: Stable Code Status: Full Code Discharge Instructions Ambulatory referral to Physical Therapy, Eval and Treat Referral Priority: Routine Referral Type: Physical Medicine Referral Reason: Specialty Services Required Requested Specialty: Physical Therapy Number of Visits Requested: 1 Ambulatory referral to Occupational Therapy, Eval and Treat Referral Priority: Routine Referral Type: Occupational Therapy Referral Reason: Specialty Services Required Requested Specialty: Occupational Therapy Number of Visits Requested: 1 PICC Line Removal Scheduling Instructions: Remove at end of iv antibiotic therapy. Call MD for: Temperature > 100.4F (38C) Call MD for: Persistant Nausea and Vomiting Call MD for: Severe Uncontrolled Pain Call MD for: Redness, Tenderness, or Signs of Infection (Pain, Swelling, Redness, Odor or Green/Yellow Discharge Around Incision Site) Call MD for: Difficulty Breathing, Headache or Visual Disturbances Call MD for: Hives Call MD for: Persistant Dizziness or Light-Headedness Call MD for: Extreme Fatigue Possible Follow Up Numbers: Samy Cardenas MD [address] [facility] [phone] In 2 weeks Oracio Villaseñor MD [address] [facility] [phone] Douglas Logan DO [address] [place] [facility] [id number] Medication List START taking these medications calcium carbonate 500 MG chewable tablet QTY: 60 tablet Refills: 0 Commonly known as: TUMS Take 2 tablets by mouth every 6 (six) hours as needed for Heartburn for up to 30 days. diazePAM 2 MG tablet QTY: 60 tablet Refills: 0 Commonly known as: VALIUM Take 1 tablet by mouth every 8 (eight) hours as needed (severe muscle spasms) for up to 30 days. methocarbamol 750 MG tablet QTY: 90 tablet Refills: 2 Commonly known as: ROBAXIN Take 1 tablet by mouth 3 (three) times daily for 90 days. oxycodone 10 MG tablet QTY: 90 tablet Refills: 0 Take 1 tablet by mouth every 6 (six) hours as needed (post operative pain) for up to 30 day s. piperacillin-tazobactam 3.375 (3-0.375) g injection QTY: 240 mL Refills: 0 Commonly known as: ZOSYN Inject 15 mLs into the vein every 6 (six) hours for 4 days. tamsulosin 0.4 MG capsule QTY: 30 capsule Refills: 0 Commonly known as: FLOMAX Take 1 capsule by mouth After dinner. vancomycin 125 MG capsule QTY: 176 capsule Refills: 0 Doctor's comments: Need to replace with liquid vancomycin and give via ostomy cath. Commonly known as: VANCOCIN Take 4 capsules by mouth 4 (four) times daily for 11 days. Need to replace with liquid vanc omycin and give via ostomy cath. CHANGE how you take these medications gabapentin 600 MG tablet QTY: 60 tablet Refills: 0 Commonly known as: NEURONTIN Take 1 tablet by mouth 2 (two) times daily. What changed: how much to take when to take this CONTINUE taking these medications capsaicin 0.025 % cream Refills: 0 Commonly known as: ZOSTRIX nortriptyline 25 MG capsule Refills: 0 Commonly known as: PAMELOR omeprazole 20 MG capsule Refills: 0 Commonly known as: PRILOSEC You might also be taking other medications not listed above. If you have questions about an y of your other medications, talk to the person who prescribed them or your Primary Care Pro vider. STOP taking these medications diphenhydrAMINE 50 MG capsule Commonly known as: BENADRYL DULoxetine 30 MG capsule Commonly known as: CYMBALTA ranitidine 300 MG tablet Commonly known as: ZANTAC traMADol 50 MG tablet Commonly known as: ULTRAM Where to Get Your Medications You can get these medications from any pharmacy Bring a paper prescription for each of these medications calcium carbonate 500 MG chewable tablet diazePAM 2 MG tablet gabapentin 600 MG tablet methocarbamol 750 MG tablet oxycodone 10 MG tablet piperacillin-tazobactam 3.375 (3-0.375) g injection tamsulosin 0.4 MG capsule vancomycin 125 MG capsule Extensive discussion regarding general risks of opiates which can be minor (constipation) a nd severe with opiate dependence, respiratory depression and . Patient was advised to h ave caution with any opiate medication and to not mix medications with alcohol or anti-anxie ty medications like bezodiazapine with the result being the possibility of disability or alicia th. Possibility of impairment and the inability to drive or operate heavy machinery also dis cussed as patient is aware of the risk to themselves and others. Patient was advised not to drive while under the influence of any narcotic or sedating medication. Discharge took 15 minutes, to include final examination, discussion of admission, and prepa ration of prescriptions, instructions for on-going care, follow-up and documentation of disc harge summary. Douglas Logan D.O Board Certified Neurosurgeon [facility] Office Wale Rosado MD - 05/03/2018 8:49 AM PST Discharge Summaries by Wale Sandoval MD at 05/03/18 0849 Author: Wale Sandoval MD Service: Hospitalist Author Type: Physician Filed: 05/03/18899 Date of Service: 05/03/18848 Status: Signed Damper Maker: Wale Sandoval MD (Physician) [facility] Service: Hospitalist Discharge Summary Date of Admission: 04/19/2018 Date of Discharge: 05/03/2018 Discharge Provider: WALE SANDOVAL MD Consulting Provider: Dr Cardenas - Colorectal Surgery ,Dr Logan - Neurosurgery, Dr Armando draper- Infectious Disease Discharge Diagnoses: Principal Problem: Sepsis (HCC) secondary to toxic megacolon secondary to C diff with peritonitis Active Problems: S/p total colectomy end ileostomy Cervical myelopathy (HCC) paradoxical cervical and thoracic spinal cord edema even in non operated segments without evidence of AVM likely intraoperative hypotension vs. attacking a cute demyelinating process S/P posterior cervical laminectomy, foraminotomy 5-7 Urinary retention CIARRA BRIEF HISTORY OF PRESENTATION: Matthias Lambert is a 42 y.o. male with history of cervical radiculopathy at C6, C7, DDD s/p posterior cervical laminectomy, foraminotomy 5-7 on 04/19/[address] Logan, Intraoperat ively course complicated by hypoensions requiring pressor, and post operatively was noted to have no movement of R arm and fingers and some muscle twicthing on the forearm, severe pare sthesis in bilateral UE L>R, from thigh upwards over the entire trunk. Emergent MRI done claudine wing There is newly developed T2 signal throughout the cervical cord with fusiform swelling. There appears to be potential susceptibility artifact along the paracentral region of the cord which could reflect some hemorrhage. Differential considerations would include a cord contusion versus possible ADEM in the appropriate clinical context. Given that this does not occur along a typical vascular distribution, cord infarct with subsequent hemorrhage is thought to be unlikely but not excluded. This appears to extend into the thoracic cord and if indicated, further assessment of the thoracic cord could be performed with dedicated MRI. The edema is thought to be acute. with subsequent admission to ICU for serial neuro checks and active management of BP for co rd perfusion on 04/19/18. Pt underwent LP on 04/20/18 as he remained flaccid in the RUE, but had slight improvement in sensation on the LUE. CSF negative for infection. This was later felt to be due to paradoxical cervical and thoracic spinal cord edema even in non operated segments without evidence of AVM likely intraoperative hypotension vs. attacking acute demye linating process. Pt placed on steroid taper, was on 10 mg of prednisone daily and yesterday was started on 5 mg prednisone, can be tapered or stopped pending improvement. Actually the R arm has in just the 3 days I have seen him continued to show slight improvement. Stool later came back + for C diff, and per notes became septic, and on 04/26 emergently was taken to the OR for toxic megacolon with peritonitis and underwent total abdominal mynor ctomy and creation of an end loop ileo colostomy by Dr Cardenas. He has been cleared to miguel may from their standpoint. ID has also cleared pt with the plan to continue IV zosyn unt il 05/05 via PICC in L arm. Vanco via catheter to ostomy site will be continued until 05/12t h. The patient is symptomatically improved and medically stable on discharge. Pt is given info rmation on new medication side effects. Questions answered. Pt is in agreement with discha rge plans. Advised to follow up closely with PCP for post hospitalization follow up as well as specialists seen this admission as indicated below. DISCHARGE EXAM Vital Signs: BP 131/85 (BP Location: Right forearm) | Pulse 96 | Temp 98.5 F (36.9 C) | Resp 16 | Ht 1.803 m (5' 11") | Wt 95 kg (209 lb 6.4 oz) | SpO2 96% | BMI 29.21 kg/m Constitutional: Alert and mentating well. No acute respiratory distress HEENT: moist mucous membranes, pink conjunctivae and anicteric sclerae. No JVD. Cardiovascular: regular rate Pulmonary: Non labored breathing. Breath sounds are clear bilaterally. No wheezing or rale s. Abdominal: Soft and mildly tender. Ostomy bag with brown stool. Bowel sounds are present. N o rebound or guarding. Surgical site appears to be healing well, kayla in place Extremities: No edema or cyanosis. Neurological: AAO x3. No CN deficit. R forearm and hand weakness/flaccidity mildly improved Skin: No diaphoresis Psychiatric: Normal mood and affect. Disposition: [facility] Condition: stable and improved Code Status: Full Code Follow up: Samy Cardenas MD [address] [facility] [id number] In 2 weeks Oracio Villaseñor MD [address] [facility] [address] Douglas Logan DO [address] [place] [facility] [address] Medication List START taking these medications calcium carbonate 500 MG chewable tablet QTY: 60 tablet Refills: 0 Commonly known as: TUMS Take 2 tablets by mouth every 6 (six) hours as needed for Heartburn for up to 30 days. diazePAM 2 MG tablet QTY: 6 tablet Refills: 0 Commonly known as: VALIUM Take 1 tablet by mouth every 8 (eight) hours as needed (severe muscle spasms) for up to 2 d ays. methocarbamol 750 MG tablet QTY: 30 tablet Refills: 0 Commonly known as: ROBAXIN Take 1 tablet by mouth 3 (three) times daily for 10 days. oxycodone 10 MG tablet QTY: 12 tablet Refills: 0 Take 1 tablet by mouth every 4 (four) hours as needed for Pain (7 and above/10). piperacillin-tazobactam 3.375 (3-0.375) g injection QTY: 240 mL Refills: 0 Commonly known as: ZOSYN Inject 15 mLs into the vein every 6 (six) hours for 4 days. predniSONE 5 MG tablet QTY: 8 tablet Refills: 0 Doctor's comments: Stop after 10 days or discuss with doctor if further tapering needs to be done before discontinuation Commonly known as: DELTASONE Take 1 tablet by mouth daily with breakfast for 8 days. Start taking on: 05/04/2018 tamsulosin 0.4 MG capsule QTY: 30 capsule Refills: 0 Commonly known as: FLOMAX Take 1 capsule by mouth After dinner. vancomycin 125 MG capsule QTY: 176 capsule Refills: 0 Doctor's comments: Need to replace with liquid vancomycin and give via ostomy cath. Commonly known as: VANCOCIN Take 4 capsules by mouth 4 (four) times daily for 11 days. Need to replace with liquid vanc omycin and give via ostomy cath. CHANGE how you take these medications gabapentin 600 MG tablet QTY: 60 tablet Refills: 0 Commonly known as: NEURONTIN Take 1 tablet by mouth 2 (two) times daily. What changed: how much to take when to take this CONTINUE taking these medications capsaicin 0.025 % cream Refills: 0 Commonly known as: ZOSTRIX nortriptyline 25 MG capsule Refills: 0 Commonly known as: PAMELOR omeprazole 20 MG capsule Refills: 0 Commonly known as: PRILOSEC You might also be taking other medications not listed above. If you have questions about an y of your other medications, talk to the person who prescribed them or your Primary Care Pro vider. STOP taking these medications diphenhydrAMINE 50 MG capsule Commonly known as: BENADRYL DULoxetine 30 MG capsule Commonly known as: CYMBALTA ranitidine 300 MG tablet Commonly known as: ZANTAC traMADol 50 MG tablet Commonly known as: ULTRAM Where to Get Your Medications You can get these medications from any pharmacy Bring a paper prescription for each of these medications calcium carbonate 500 MG chewable tablet diazePAM 2 MG tablet gabapentin 600 MG tablet methocarbamol 750 MG tablet oxycodone 10 MG tablet piperacillin-tazobactam 3.375 (3-0.375) g injection predniSONE 5 MG tablet tamsulosin 0.4 MG capsule vancomycin 125 MG capsule Discharge took >30 minutes, to include final examination, discussion of admission, and prep aration of prescriptions, instructions for on-going care, follow-up and documentation of dis charge summary. WALE SANDOVAL MD 05/03/2018 documented in this encounter Medications at Time [...] + + + +---------+ + + | calcium carbonate | Take 2 tablets by | 60 | 0 | 05/04/19 | | | (TUMS) 500 mg | mouth every 6 (six) | tablet | | 19 | 9 | | chewable tablet | hours as needed for | | | | | | | Heartburn for up to | | | | | | | 30 days. | | | | | + + + +---------+ + + documented as of this encounter Progress Notes Conversion Transaction, Provider Unknown - 05/03/2018 3:11 PM PSTFormatting of this note m ight be different from the original. Nurse Progress Note by Kecia Thurman RN at 05/03/18 151 Author: Kecia Thurman RN Service: (none) Author Type: Registered Nurse Filed: 05/03/18 1523 Date of Service: 05/03/181510 Status: Signed Damper Maker: Kecia Thurman RN (Registered Nurse) VSS, ABX given as ordered, ileostomy site cleaned and bag changed. Report given to nurse at [facility] facility. PICC flushed and saline locked, brown empty . Paperwork and all belongings given to guards. Pain meds and valium given immediately befo re discharge for adequate pain control. Pt Discharging to [facility] with guards via their vehicle. onver antonio Transaction, Provider Unknown - 05/03/2018 9:35 AM PST Case Management by PARDEEP Serrato at 05/03/1884 Author: PARDEEP Serrato Service: (none) Author Type: Oil Well Service Operator Filed: 03/05/19 0937 Date of Service: 05/03/18 0935 Status: Signed Damper Maker: PARDEEP Serrato (Oil Well Service Operator) 05/03/18 0900 Discharge Planning Evaluation Admitting Diagnosis Cervical Myelopathy Anticipated Disposition Facility Type Other (Comment) ([facility] - pending [place] vs [place]) SEPARATOR INSERTER p/c with Sweetie at Quality Control Coordinator at [facility] ([phone] cell, Fax) reviewed latest clinicals, needing IV Abx, new colostomy, would benefit from o /p PT and OT, will need follow up with providers. Sweetie will call back with location of faci lity. DCP: [facility] JANET DOCKERY Oil Well Service Operator [phone] cell onver antonio Transaction, Provider Unknown - 05/02/2018 5:01 PM PST Nurse Progress Note by Kecia Thurman RN at 05/02/18 170 Author: Kecia Thurman RN Service: (none) Author Type: Registered Nurse Filed: 05/03/18 0729 Date of Service: 05/02/18 170 Status: Signed Damper Maker: Kecia Thurman RN (Registered Nurse) VSS, afebrile. ABX given. [id number] chart review performed onver antonio Transaction, Provider Unknown - 05/02/2018 3:40 PM PST Therapy Progress Note by Mesha Paniagua PT at 05/02/18 1540 Author: Mesha Paniagua PT Service: (none) Author Type: Physical Therapist Filed: 05/02/18 1626 Date of Service: 05/02/18 1540 Status: Addendum Damper Maker: Mesha Paniagua PT (Physical Therapist) Related Notes: Original Note by Mesha Paniagua PT (Physical Therapist) filed at 05/02/18 1625 PHYSICAL THERAPY TREATMENT NOTE PT Received On: 05/02/18 Reason for Treatment: Spinal surgery (cervical laminectomy and foraminotomy, colectomy w/co lostomy) Requires PT Follow Up: Yes Focus for Next Treatment: Formal Balance Assessment Recommendations: Prior Setting, Other (comment) (ongoing PT/OT) Equipment Recommended: Cane single point Barriers to Discharge: Physical Deficits Impacting Functional Gem, Self-care Defic its Impacting Functional Gem Recommendation Comments: Pt SBA in all mobility, incl 16 stairs (notes 12 step flights, may stand to rest between flights prn). Likely safe to return to facility per [facility]. May bene fit from f/u OT for ADL's incl toileting and dressing as well as ongoing RUE management. Wo uld benefit from ongoing PT for strength, conditioning, balance assessment and training as w ell as progression of mobility. Plan Treatment/Interventions: Continue per Primary PT POC Progress: Progressing toward goals Summary Comments: Pt in bed upon entry, agreeable to PT. Focus on gait and stair training. Pt able to demo donning RUE sling with set up only. Assist to trial abdominal binder with colostom y accomodation, instructed on positioning to avoid disruption at connection site, states und erstanding. Pt improved to SBA for all mobility. Able to ascend/descend 16 steps without r est break. Likely safe to manage stairs with supervision using rail in facility. May benef it from formal balance assessment as well as testing for activity tolerance. May benefit fr om SPC for longer distances/uneven surfaces. However no LOB noted throughout session. Precautions Spinal Precautions: Cervical Other Precautions: Fall precautions, flaccid RUE, impulsivity, Ankle shackles, ostomy Cognition Overall Cognitive Status: Within Functional Limits Orientation Level: Oriented FUNCTIONAL MOBILITY Bed Mobility Rolling: Standby assist, Verbal instruction, Visual instruction Sidelying to Sit: Standby assist, Verbal instruction, Visual instruction Sit to Sidelying: Standby assist, Verbal instruction, Visual instruction - Transfers Sit to/from Stand: Standby assist Ambulation Weight Bearing Status: WBAT RLE, WBAT LLE Maximal Ambulation Distance (feet): 90 Total Ambulation Distance (feet): 90 Ambulation Assistance: Standby assist, Verbal instruction, Visual instruction Distance limited by?: Therapist/staff discretion Pattern: Alternating, Decreased yanick Assistive Device: None, Other (Comment) (unable to manage IV pole safely, tends to lean, ne eds SBA) Stairs Number of Stairs: 16 Stairs Assistance: Standby assist, Verbal instruction, Visual instruction Number of stairs limited by?: Therapist/staff discretion Stair Management Technique: Step-to, Rail on left ascending Activity Tolerance: Patient limited by pain Medical Staff Made Aware: SEPARATOR INSERTER Janet notified of pt mobility status and recommendations Nurse Made Aware: RAFIA Albert notified of pt mobility status and recommendations Safety Devices in Place: (call light in reach, guards present) The patient reported pain rated at a 8-9/10. RN was notified (Bety). Other measures provi ded to relieve pts pain included: rest, repositioning Education Completed: Education Topics: [x] Rationale for PT [x] PT POC [x] DC planning [x] Precautions [x] Exercises: significant ed on UE ROM and positioning [ x] Bed mobility [x] Transfer training with hand placement [x] Gait training [x] Stair training [] Use of gait belt [x] Other Completed with: [x] Patient [] Spouse [] Significant other [] Family [] C aregiver [] Other Completed by: [x] Verbal education [x] Demonstration [] Handout [] Other: Response to Education: [x] Stated Understanding [x] Reinforcement necessary [] Returned demonstration [] Demonstrated understanding [] No evidence of learning [] Refused PT Goals Pt Will Go Supine To Sit: New / revised goal, With modified independence Pt Will Go Sit To Supine: Not met, New / revised goal, With modified independence Pt Will Transfer Sit to Stand: Not met, New / revised goal, With modified independence Pt Will Ambulate: Not met, greater than 500 feet Ambulate Level Assist: Not met, With supervision Pt Will Go Up / Down Stairs: Discontinued (comment) (pt. doesn't need to due stairs at [facility]) Stairs Level of Assist: With supervision Reflects last filed data of patient's status; may be from multiple contributors BP 122 systolic post activity, HR 110's; asymptomatic Oracio Preciado MD - 05/02/2018 3:37 PM PSTFormatting of this note might be differe nt from the original. Progress Notes by Oracio Villaseñor MD at 05/02/18 3737 Author: Oracio Villaseñor MD Service: Infectious Disease Author Type: Mago ruthy Filed: 05/02/18 0191 Date of Service: 05/02/181536 Status: Signed Damper Maker: Oracio Villaseñor MD (Physician) [facility] Service: Infectious Diseases Progress Note Hospital Day: LOS: 13 days Post-Op Day: 7 Days Post-Op CC: Follow up on C diff, peritonitis SUBJECTIVE/OVERNIGHT EVENTS Ready for discharge. Denies abd pain, fever or chills. Tolerating his antibiotics. REVIEW OF SYSTEMS GI: denies diarrhea, Constitutional: denies fever and chills and Integumentary: denies skin rash MEDICATIONS: enoxaparin 40 mg Subcutaneous Q24H gabapentin 600 mg Oral BID methocarbamol 750 mg Oral TID nortriptyline 25 mg Oral Nightly pantoprazole 40 mg Oral BID AC piperacillin-tazobactam 3.375 g 3.375 g Intravenous Q8H [START ON 05/03/2018] predniSONE 5 mg Oral Daily with breakfast sodium chloride 10 mL Intravenous 2 times per day tamsulosin 0.4 mg Oral after dinner vancomycin 500 mg Oral 4 times per day lactated ringers 125 mL/hr at 05/02/18 0919 PRN Medications acetaminophen OR acetaminophen, calcium carbonate, diazePAM, melatonin, morphine OR morphine OR morphine, naloxone, nystatin, nystatin, ondansetron OR ondansetron, oxy CODONE OR oxyCODONE OR oxyCODONE, petrolatum, polyethylene glycol, saline lock IV - when tolerating PO fluids AND sodium chloride (PF), sodium chloride 0.9 %, sodium chlori de, zolpidem PHYSICAL EXAM Vital Signs: BP 120/81 (BP Location: Right upper arm) | Pulse 112 | Temp 98.5 F (36.9 C) (Oral) | Resp 18 | Ht 1.803 m (5' 11") | Wt 95 kg (209 lb 6.4 oz) | SpO2 96% | BMI 29.21 kg/m Temp (24hrs), Av.6 F (37 C), Min:97.9 F (36.6 C), Max:98.8 F (37.1 C) Focused exam shows: General exam: No distress, cooperative with exam. HEENT: sclera non-icteric, no visible oral thrushf Cardiovascular: regular rate and rhythm Lungs: no tachypnea, clear breath sounds. Mildly decreased at bases Abdomen: no distension, bowel sounds present, ostomy. Wound without infection. Extremities/MSK: No edema, no joint effusions Skin: No lesions, normal turgor Neurologic: Awake, cranial nerves intact. Follows commands. LABS: All labs reviewed. CBC: Lab Results Component Value Date WBC 12.03 (H) 05/02/2018 RBC 3.40 (L) 05/02/2018 HGB 9.9 (L) 05/02/2018 HCT 30.2 (L) 05/02/2018 MCV 89.0 05/02/2018 MCH 29.1 05/02/2018 MCHC 32.7 05/02/2018 RDW 42.4 05/02/2018 PLT 372 05/02/2018 MPV 7.1 05/02/2018 DIFFTYPE MANUAL 05/02/2018 CMP: Lab Results Component Value Date NA 143 05/02/2018 K 4.4 05/02/2018 CL 104 05/02/2018 CO2 29 05/02/2018 ANIONGAP 14 05/02/2018 GLUF 100 (H) 05/02/2018 BUN 9 05/02/2018 CREATININE 1.1 05/02/2018 BCR 8 05/02/2018 CA 6.9 (L) 05/02/2018 EGFR >60 05/02/2018 MICROBIOLOGY Results Procedure Component Value Units Date/Time Neuromyelitis optica IgG, CSF [[id number]] Collected: 04/20/18 1600 Updated: 04/30/18 0006 NEURO OPTICA IGG CSF < 1:1 IMAGING Reviewed images of : No new images for review ASSESSMENT & PLAN The patient is a 42 y.o.-year-old male with the following problems: Principal Problem: Sepsis (HCC) Active Problems: Cervical myelopathy (HCC) S/P laminectomy Infectious colitis 1. Severe sepsis with encephalopathy. Encephalopathy has resolved now. 2. Severe C diff infection/colitis, toxic megacolonstatus post total colectomy on 9. A segment of the rectosigmoid colon remains for which the patient will usevancomycin admi nistered via ostomy catheter placed by CRS. Pt was loosing all the enema. High dose vanco. June d/c iv metronidazole today. WBC improved. Then oral vancomycin until 7 days post iv antibiotic therapy with Zosyn until 05/12/18. Complex case that needs both C diff treatment and concomitant systemic antibiotic therapy. 3. Purulent peritonitis. No evidence of perforation. Possibly translocation due to severe c olitis. Continue withwith intravenous Zosyn for coverage of intra-abdominal infection, armani erobes.Monitor clinically. Recommend 10 days, until 05/05/18. PICC in place, to be removed at end of iv antibiotic therapy. 4. Leukocytosis. Antibiotics as above. Repeat CBC in the morning Downtrending. 5. Acute kidney injury. Creatinine trending down. Discussed with Dr. Sandoval. Discussed with director case re: discharge planning and antibiotics. Oracio Conti MD, MPH Infectious Diseases 05/02/2018 onvers ion Transaction, Provider Unknown - 05/02/2018 3:36 PM PST Case Management by PARDEEP Serrato at 05/02/18 1536 Author: PARDEEP Serrato Service: (none) Author Type: Oil Well Service Operator Filed: 05/02/18 1621 Date of Service: 05/02/18 1536 Status: Addendum Damper Maker: PARDEEP Serrato (Oil Well Service Operator) Related Notes: Original Note by PARDEEP Serrato (Oil Well Service Operator) filed at 05/02/18 1547 05/02/18 1500 Discharge Planning Evaluation Admitting Diagnosis Cervical Myelopathy Anticipated Disposition Facility Type Other (Comment) ([facility] - Loc. pend. O/P Cares need ) SEPARATOR INSERTER p/c with David PT recommends Outpatient Physical therapy 2-3 times per week. SEPARATOR INSERTER p/c with Sweetie at Quality Control Coordinator at [facility] ([phone] cell, Fax) states they were planning for Pt to go back to a [facility] [place] Or [facility] in [place], unfortunately EOI, has many stairs to navigate, states due to n eed for care, may be better suited to go [address] [place] [address] [facility] in [facility], pending. SEPARATOR INSERTER updated clinicals. SEPARATOR INSERTER p/c with Dr. Sushila Villaseñor, states he will print out the IV Abx scripts, will fax to Radha ross, coordinator at [facility]. SEPARATOR INSERTER p/c with Yu PT states Pt was able to 16 "step-ups" in the room, recommends outpati ent PT and OT. OT for right arm. DCP: Pending [place] [facility] JANET DOCKERY, Oil Well Service Operator [phone] cell Wale Hernández MD - 05/02/2018 3:35 PM PST Progress Notes by Wale Sandoval MD at 05/02/18 1537 Author: Wale Sandoval MD Service: Hospitalist Author Type: Physician Filed: 05/02/181536 Date of Service: 05/02/181534 Status: Signed Damper Maker: Wale Sandoval MD (Physician) [facility] Service: Hospitalist Progress Note Pt: Matthias Lambert AGE/SEX: 42 y.o. male ROOM: 9107/9107-1 : 1975 PCP: Per PT None ADMIT DATE: 04/19/2018 TODAY'S DATE: 05/02/2018 Hospital Day/Hospital Course: LOS: 13 days Summary 42 y/o M with history of cervical radiculopathy at C6, C7, DDD s/p posterior cervical anna ectomy, foraminotomy 5-7 on 04/19/[address] Logan, Intraoperatively course complicated by hypoensions requiring pressor, and post operatively was noted to have no movement of R arm a nd fingers and some muscle twicthing on the forearm, severe paresthesis in bilateral UE L>R, fromt high upwards over the entire trunk. Emergent MRI done showing There is newly developed T2 signal throughout the cervical cord with fusiform swelling. There appears to be potential susceptibility artifact along the paracentral region of the cord which could reflect some hemorrhage. Differential considerations would include a cord contusion versus possible ADEM in the appropriate clinical context. Given that this does not occur along a typical vascular distribution, cord infarct with subsequent hemorrhage is thought to be unlikely but not excluded. This appears to extend into the thoracic cord and if indicated, further assessment of the thoracic cord could be performed with dedicated MRI. The edema is thought to be acute. with subsequent admission to ICU for serial neuro checks and active management of BP for co rd perfusion on 04/19/18. Pt underwent LP on 04/20/18 As he remained flaccid in the RUE, but had slight improvement in sensation on the LUE. Stool later came back + for C diff, and per notes became septic, and on 04/26 emergently was taken to the OR for toxic megacolon with peritonitis and underwent total abdominal colectomy and creation of an end loop ileo colost asher by Dr Cardenas SUBJECTIVE: Patient seen and examined. R hand and forearm seems to have more movement Await for everything to be set up for return back to [facility], potentially tomorrow Pt overall doing well ASSESSMENT & PLAN First problem in the list is the principal problem: Principal Problem: Sepsis secondary to toxic megacolon secondary to C diff with peritonitis - s/p above surgery by Dr Cardenas, they continue to follow -cleared for d'c - ID recommendations per ID Active Problems: Cervical myelopathy (HCC) - course in the OR above confounded by hypotension, and thereafter the neuropathies listed above - R arm seems to be developing more strength in that he can now move the R elbow off the b ed although the R hand is still not moving - continue PT/OT - I am not entirely sure whether this is the reason pt is on prednisone, for now I will co ntinue this medication -> probably due to thought of ADEM - Dr Ghosh seems to have discussed case with Dr Subramanian neurologist per his note on 04/25, [place] to be ADEM vs contusion vs spinal infarct Continue gabapentin -prednisone is decreased today by Dr Logan Disposition issue - gathering from notes, one issue is how to take care of ostomy given he is R handed and c urrently unable to use R hand, per Dr Callahan's last note, await further input of Dr Logan on disposition so I will await that --> cleared to d'c Urinary retention? - continues to have brown catheter, can likely have voiding trial before discharge - continue tamsulosin Creatinine trending up slightly, better today 05/02 continue high rate of IVF, monitor closely DVT prophylaxis enoxaparin subcutaneous and mechanical devices Scheduled Medications: enoxaparin 40 mg Subcutaneous Q24H gabapentin 600 mg Oral BID methocarbamol 750 mg Oral TID nortriptyline 25 mg Oral Nightly pantoprazole 40 mg Oral BID AC piperacillin-tazobactam 3.375 g 3.375 g Intravenous Q8H [START ON 05/03/2018] predniSONE 5 mg Oral Daily with breakfast sodium chloride 10 mL Intravenous 2 times per day tamsulosin 0.4 mg Oral after dinner vancomycin 500 mg Oral 4 times per day Continuous Infusions lactated ringers 125 mL/hr at 05/02/18 0919 PRN Medications acetaminophen OR acetaminophen, calcium carbonate, diazePAM, melatonin, morphine OR morphine OR morphine, naloxone, nystatin, nystatin, ondansetron OR ondansetron, oxy CODONE OR oxyCODONE OR oxyCODONE, petrolatum, polyethylene glycol, saline lock IV - when tolerating PO fluids AND sodium chloride (PF), sodium chloride 0.9 %, sodium chlori de, zolpidem Allergy: No Known Allergies OBJECTIVE: Vitals: Patient Vitals for the past 24 hrs: BP Temp Temp src Pulse Resp SpO2 05/02/18 1223 120/81 98.5 F (36.9 C) Oral 112 18 96 % 05/02/18 0723 116/80 97.9 F (36.6 C) Oral 90 17 96 % 05/02/18 0514 118/70 98.8 F (37.1 C) Oral 76 16 95 % 05/01/18 2348 126/81 98.8 F (37.1 C) Oral 98 17 98 % 05/01/18 2046 122/76 98.8 F (37.1 C) Oral 97 17 98 % 05/01/18 1538 125/85 97.8 F (36.6 C) Oral 97 18 97 % I&O Detailed Table: Intake/Output Summary (Last 24 hours) at 05/02/18 1535 Last data filed at 05/02/18 1300 Gross per 24 hour Intake 0 ml Output 7625 ml Net -7625 ml No data found. Hemodynamics Last 24hrs: Physical Examination: Constitutional: Alert and mentating well. No acute respiratory distress HEENT: moist mucous membranes, pink conjunctivae and anicteric sclerae. No JVD. Cardiovascular: Mild tachycardia Pulmonary: Non labored breathing. Breath sounds are clear bilaterally. No wheezing or rale s. Abdominal: Soft and mildly tender. Ostomy bag with brown stool. Bowel sounds are present. N o rebound or guarding. Surgical site appears to be healing well, kayla in place Extremities: No edema or cyanosis. Neurological: AAO x3. No CN deficit. R forearm and hand weakness/flaccidity mildly improved Skin: No diaphoresis Psychiatric: Normal mood and affect. LABS: Recent Labs Lab 05/02/1854105/01/1845804/30/18 0400 WBC 12.03* 11.25* 12.01* HGB 9.9* 10.3* 9.6* HCT 30.2* 32.3* 29.7* PLT 372 352 296 Recent Labs Lab 05/02/1854105/01/1845804/30/18 0400 NA 143 141 142 K 4.4 4.0 3.6 CL 104 101 105 CO2 29 29 30 BUN 9 6* 7* CREATININE 1.1 1.2 1.0 Phosphorus: Lab Results Component Value Date PHOS 2.7 05/02/2018 Invalid input(s): LABALBU Recent Labs Lab 05/02/1854105/01/1845804/30/18 0400 MG 1.7 1.7 1.8 No results for input(s): AMYLASE in the last 168 hours. No results for input(s): PHART, PO2ART, GGD3XSD, E4DXBVRG, BEART in the last 168 hours. No results for input(s): APTT, INR, PTT in the last 168 hours. No results for input(s): TSH, T3FREE, FREET4 in the last 168 hours. No results for input(s): CKTOTAL, TROPONINI, TROPONINT, CKMBINDEX in the last 168 hours. PROBLEM LIST Principal Problem: Sepsis (HCC) Active Problems: Cervical myelopathy (HCC) S/P laminectomy Infectious colitis More than 35 mins were spent on the review of H/P, imaging and labs, formulation of assessm ent and plan, discussion with the patient/family, staff and providers. WALE SANDOVAL MD 05/02/2018 3:35 PM Jam Copeland ARNP - 05/02/2018 9:08 AM PST . Progress Notes by DELANEY Cherry at 05/02/18907 Author: DELANEY Cherry Service: General Surgery Author Type: Nurse Alek urena Filed: 05/02/18912 Date of Service: 05/02/18907 Status: Signed Damper Maker: DELANEY Cherry (Nurse Practitioner) [facility] Service: Colon & Rectal Surgery Progress Note Hospital Day: LOS: 13 days Post-Op Day: 5 Day Post-Op SUBJECTIVE Patient Summary: Total colectomy end ileocolostomy Events Overnight: None acute. Pt is tolerating a general diet without N/V. His osto my is passing gas and liquid stool 430 mls/24 hrs. Deneis chest pain and SOB. Vitals and labs stable. Scheduled Medications enoxaparin 40 mg Subcutaneous Q24H gabapentin 600 mg Oral BID methocarbamol 750 mg Oral TID metronidazole 500 mg Intravenous Q8H nortriptyline 25 mg Oral Nightly pantoprazole 40 mg Oral BID AC piperacillin-tazobactam 3.375 g 3.375 g Intravenous Q8H [START ON 05/03/2018] predniSONE 5 mg Oral Daily with breakfast sodium chloride 10 mL Intravenous 2 times per day tamsulosin 0.4 mg Oral after dinner vancomycin 500 mg Oral 4 times per day Continuous Infusions lactated ringers 125 mL/hr at 05/02/18 0106 PRN Medications acetaminophen OR acetaminophen, calcium carbonate, diazePAM, melatonin, morphine OR morphine OR morphine, naloxone, nystatin, nystatin, ondansetron OR ondansetron, oxy CODONE OR oxyCODONE OR oxyCODONE, petrolatum, polyethylene glycol, saline lock IV - when tolerating PO fluids AND sodium chloride (PF), sodium chloride 0.9 %, sodium chlori de, zolpidem OBJECTIVE Vital Signs: BP 116/80 (BP Location: Right upper arm) | Pulse 90 | Temp 97.9 F (36.6 C) (Oral) | Resp 17 | Ht 1.803 m (5' 11") | Wt 95 kg (209 lb 6.4 oz) | SpO2 96% | BMI 29.21 kg/m Patient Vitals for the past 24 hrs: BP Temp Temp src Pulse Resp SpO2 05/02/18 0723 116/80 97.9 F (36.6 C) Oral 90 17 96 % 05/02/18 0514 118/70 98.8 F (37.1 C) Oral 76 16 95 % 05/01/18 2348 126/81 98.8 F (37.1 C) Oral 98 17 98 % 05/01/18 2046 122/76 98.8 F (37.1 C) Oral 97 17 98 % 05/01/18 1538 125/85 97.8 F (36.6 C) Oral 97 18 97 % 05/01/18 1227 132/90 98.6 F (37 C) Oral 118 18 98 % Physical Exam Constitutional: He is oriented to person, place, and time. He appears well-developed and we ll-nourished. Cardiovascular: Normal rate. Pulmonary/Chest: Effort normal. Abdomina/Gl: Soft. He exhibits no distension and no mass. There is no tenderness. There is no rebound and no guarding. Neurological: He is alert and oriented to person, place, and time. Skin: Skin is warm and dry. Psychiatric: He has a normal mood and affect. His behavior is normal. Nursing note and vitals reviewed. DATA CBC: Lab Results Component Value Date WBC 12.03 (H) 05/02/2018 RBC 3.40 (L) 05/02/2018 HGB 9.9 (L) 05/02/2018 HCT 30.2 (L) 05/02/2018 MCV 89.0 05/02/2018 MCH 29.1 05/02/2018 MCHC 32.7 05/02/2018 RDW 42.4 05/02/2018 PLT 372 05/02/2018 MPV 7.1 05/02/2018 DIFFTYPE MANUAL 05/02/2018 CMP: Lab Results Component Value Date NA 143 05/02/2018 K 4.4 05/02/2018 CL 104 05/02/2018 CO2 29 05/02/2018 ANIONGAP 14 05/02/2018 GLUF 100 (H) 05/02/2018 BUN 9 05/02/2018 CREATININE 1.1 05/02/2018 BCR 8 05/02/2018 CA 6.9 (L) 05/02/2018 EGFR >60 05/02/2018 Magnesium: Lab Results Component Value Date MG 1.7 05/02/2018 Phosphorus: Lab Results Component Value Date PHOS 2.7 05/02/2018 PROBLEM LIST Principal Problem: Sepsis (HCC) Active Problems: Cervical myelopathy (HCC) S/P laminectomy Infectious colitis ASSESSMENT & PLAN POD # 7 from a Total colectomy end ileocolostomy whose bowel function has returned -Ok to discharge from colorectal perspective once medically ready. -Remove abdominal midline kayla on POD # 10, 3 -Follow up in our clinic in 2-4 weeks to discuss reversal -Abd binder ok for comfort, cut hole for ostomy appliance. -Please leave red rubber catheter in place for vancomycin treatment. If red rubber cathete r advances out ok to push back in. Do not replace if it completely comes out. Ok to remov e when vancomycin treatments are completed. -We will sign off at this time. If there are any further questions or concerns please don' t hesitate to call us back A/P discussed with Dr. Cardenas Disposition: Code Status: Full Code DELANEY CHERRY 05/02/2018 Douglas Lopes DO - 05/02/2018 8:28 AM PST Progress Notes by Douglas Logan DO at 05/02/18827 Author: Douglas Logan DO Service: Neurosurgery Author Type: Physician Filed: 05/02/18 0835 Date of Service: 05/02/18827 Status: Signed Damper Maker: Douglas Logan DO (Physician) Neurosurgery Progress Note - Post Operative Provider: Douglas Logan DO Date : 05/02/2018 8:28 AM Referring Provider: Code Status: Full Code Hospital Day: LOS: 13 days Patient ID: [id number] Matthias Lambertis a 41 y.o.malewith severe cervical stenosis status post anterior cervical discectomy and fusion C5-C6 C6-7 with resolution of his radicular pa in market improvement in symptoms with only routine postoperative surgical pain and trapeziu s muscle spasm. Clinic Visit 04/19/2018: Matthias Lambert is a 42 y.o. male returns to neurosurgery clinic with N eurosurgical followup status post anterior cervical diskectomy and fusion C5-7. Patient unf ortunately is a [facility] patient, and despite our insistence, was not offered postoperative foll owup and followed with the local [facility] physician. 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 Patient was doing rather well for approximately 6 to 8 months until he started h aving intermittent tingling down his left hand in the C6 and C7 dermatomal region. This has returned and increased in nature. He was evaluated by his [facility] physician, who correctly or dered a CT myelogram of the cervical and lumbar spine, which showed that there was some bony overgrowth which had reoccurred at the fusion sites including C5-6, C6-7, more towards the left neural foramen, and may be the etiology of the patient's recurrent symptoms. This is a n over-healing and over-productive bone formation versus scar tissue which has compressed th e exiting nerves. Patient, during the interim, also states he has undergone other intervent ions. Recently had an ocular infection, for which he has had drainage and treatment only a few days ago. Patient denies any profound or severe weakness of the right upper extremity. Left upper extremity has improved in strength since his initial preop state, but states nidia t it was better few months ago. 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 Patient has been trying Neurontin; but because the [facility] controlled the s ubstances, not been getting it all the time. Patient does have what appears to be a lot of medical concerns for someone in [facility]. Admission Date - >04/19/2018 < - OR Date - Procedure(s): COLECTOMY (N/A) EXPLORATION - LAPAROTOMY (N/A) ILEOSTOMY - post op with paradoxical right UE RLE paralysis and hypersensitivity on left si de MRI imaging with diffuse edema in non operated and operated regions of the cervical and t horacic spine possibly diffuse demyelinating process Hospital Course: 04/20/2018 3:04 PM - RUE with some movement of hand, return of strength in RLE. Improvement of hypersensitivity of LUE LLE. 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 P colt was worked up for MS and told at a time that he may have a subtype of the disease. 04/21/2018 2:01 PM - marginal improvements in sensation and movement 04/22/2018 7:34 AM - Patient with some return of pain related to steroid wean 04/23/2018 10:35 AM - febrile with confusion, decreased PO intake. Urine changed to dark amb er color history of recent occular infection and prior abx cleared prior to surgery although with high dose steroids potential for UTI vs. Bacteremia unlikely incisional infection at t his time. CSF results still pending. Was having liquid BM yesterday now with abdominal pain 04/25/2018 8:03 AM - continued loose stools, intermittent episodes of confusion and left arm weakness with dilaudid. 04/26/2018 4:47 PM - patient much more alert today answering questions states allodynia of L UE with good improvement. Sensation increasing to entire RUE now tingling "like waking up" 04/27/2018 - in good spirits has improvement in proximal movement of right arm. Wants to dis continue baclofen 05/02/2018 8:28 AM - over weekend now able to use limited deltoid and minor bicept function. More movement of fingers. Routine incisional and abdominal pain. Subjective Past Medical History Diagnosis Date GERD (gastroesophageal reflux disease) History of stomach ulcers Neuromyopathy (HCC) Other chronic pain Seizures (HCC) 2002 none since then Social History Social History Marital status: Unknown Spouse name: N/A Number of children: 1 Years of education: GED+ Occupational History Not on file. Social History Main Topics Smoking status: Former Smoker Quit date: 04/29/2001 Smokeless tobacco: Never Used Alcohol use No Drug use: Yes Types: Marijuana Sexual activity: Not on file Other Topics Concern Not on file Social History Narrative No narrative on file Family History Problem Relation Age of Onset Other (see comments) Father Brain tumor Cancer Other Diabetes Other No Known Allergies Objective Vital Signs: Last: Last 24hrs Vitals: 05/02/18 0723 BP: 116/80 Pulse: 90 Resp: 17 Temp: 97.9 F (36.6 C) SpO2: 96% Temp: [97.8 F (36.6 C)-98.8 F (37.1 C)] 97.9 F (36.6 C) Heart Rate: [76-118] 90 Resp: [16-18] 17 BP: (116-132)/(70-90) 116/80 Intake/Output Summary (Last 24 hours) at 05/02/18 0828 Last data filed at 05/02/18 0723 Gross per 24 hour Intake 3675 ml Output 37926 ml Net -7550 ml 05/02 0700 - 05/02 1859 In: - Out: 700 [Urine:700] 04/30 1900 - 05/02 0659 In: 7563 [P.O.:4500; I.V.:2963] Out: 90070 [Urine:91312] Vent Settings Last 24hrs: PHYSICAL EXAM: General: AAO x 4 more fluid movements of LUE. Skin:Skin color, texture, turgor normal. No rashes or lesions. HEENT: Normocephalic atraumatic S/p colostomy Muscle Strength: Right Left Upper Extremity: 3/5 right deltoid and 2/5 bracialradialis, 1/5 hand movement and palpable bicept and forearm 5/5 able to give good strength Lower Extremity: 5/5 5/5 Wound:Clean, dry, and intact. No evidence of wound breakdown or infection. Abdominal incisi on healing with decreased abdominal swelling Sensation: diffuse parasthesias increased sensa tion RUE Can now feel right finger tips. Recent Labs Lab 05/02/18 0542 05/01/18 0459 WBC 12.03* 11.25* RBC 3.40* 3.62* HGB 9.9* 10.3* HCT 30.2* 32.3* PLT 372 352 BANDSABS 0.24* 0.11 No results for input(s): APTT, PROTIME, INR in the last 168 hours. Invalid input(s): FIBRINOGEN Recent Labs Lab 05/02/18 0542 05/01/18 0459 NA 143 141 K 4.4 4.0 CL 104 101 CO2 29 29 ANIONGAP 14 15 GLUF 100* 128* BUN 9 6* CREATININE 1.1 1.2 BCR 8 5 CA 6.9* 7.6* PHOS 2.7 3.4 MG 1.7 1.7 Lab Results Component Value Date CLARITYU CLEAR 04/23/2018 LEUKOCYTESUR NEGATIVE 04/23/2018 NITRITE NEGATIVE 04/23/2018 UROBILINOGEN NORMAL 04/23/2018 UPRO 30 (A) 04/23/2018 PHUR 6.0 04/23/2018 BLOODU SMALL (A) 04/23/2018 KETONES NEGATIVE 04/23/2018 BILIRUBINUR NEGATIVE 04/23/2018 GLUCOSEU NEGATIVE 04/23/2018 Lab Results Component Value Date TROPONINI <0.006 04/23/2018 Scheduled Medications: enoxaparin 40 mg Subcutaneous Q24H gabapentin 600 mg Oral BID methocarbamol 750 mg Oral TID metronidazole 500 mg Intravenous Q8H nortriptyline 25 mg Oral Nightly pantoprazole 40 mg Oral BID AC piperacillin-tazobactam 3.375 g 3.375 g Intravenous Q8H predniSONE 10 mg Oral Daily with breakfast sodium chloride 10 mL Intravenous 2 times per day tamsulosin 0.4 mg Oral after dinner vancomycin 500 mg Oral 4 times per day PRN Medications: acetaminophen OR acetaminophen, calcium carbonate, diazePAM, melatonin, morphine OR morphine OR morphine, naloxone, nystatin, nystatin, ondansetron OR ondansetron, oxy CODONE OR oxyCODONE OR oxyCODONE, petrolatum, polyethylene glycol, saline lock IV - when tolerating PO fluids AND sodium chloride (PF), sodium chloride 0.9 %, sodium chlori de, zolpidem Continuous Infusions lactated ringers 125 mL/hr at 05/02/18 0106 Patient Active Problem List Diagnosis Date Noted Sepsis (HCC) 04/24/2018 Infectious colitis 04/24/2018 Cervical myelopathy (HCC) 04/21/2018 S/P laminectomy 04/21/2018 Cervical radiculopathy at C7 11/04/2016 Cervical radiculopathy at C6 11/04/2016 DDD (degenerative disc disease), cervical 11/04/2016 Muscle weakness of upper extremity 11/04/2016 Bilateral carpal tunnel syndrome 08/26/2016 Assessment/Plan Matthias Lambert is a 42 y.o. male with cervical foraminal stenosis status post Procedure(s): COLECTOMY (N/A) EXPLORATION - LAPAROTOMY (N/A) ILEOSTOMY - Admit Date - 04/19/2018 - Operative date - paradoxical cervical and thoracic spi nal cord edema even in non operated segments without evidence of AVM likely intraoperative h ypotension vs. attacking acute demyelinating process. +C.Diff with colitis s/p colectomy Plan : 1. S/p resection of colon for toxic megacolon 2. CSF with inflamatory process, eeg with non specific cerebral dysfunction. Improvement in right arm deficits 3. SCD's and dvt prophylaxis 4. Steroid wean to prednisone 10 qday 5. Encourage PT/OT 6. Likely disposition back to prior [facility] with need for final recommendations from ID, Medic ine, and General Surgery teams. [facility] c an be established. Douglas Logan D.O Board Certified Neurosurgeon [facility] Office onversion Transactio n, Provider Unknown - 05/02/2018 5:47 AM PST Nurse Progress Note by Kenisha Todd RN at 05/02/18546 Author: Kenisha Todd RN Service: (none) Author Type: Registered Nurse Filed: 05/02/18546 Date of Service: 05/02/18546 Status: Signed Damper Maker: Kenisha Todd RN (Registered Nurse) No acute changes over night. VSS. Pt mentioned having concerns of pain where large intestine is and would like to address thi s with the MD. Kenisha Todd End of shift audit complete. Oracio Preciado MD - 05/01/2018 5:13 PM PSTFormatting of this note might be differe nt from the original. Progress Notes by Oracio Villaseñor MD at 05/01/181712 Author: Oracio Villaseñor MD Service: Infectious Disease Author Type: Physic ruthy Filed: 05/01/181718 Date of Service: 05/01/181712 Status: Signed Damper Maker: Oracio Villaseñor MD (Physician) [facility] Service: Infectious Diseases Progress Note Hospital Day: LOS: 12 days Post-Op Day: 6 Days Post-Op CC: follow up on infection and antibiotic therapy SUBJECTIVE/OVERNIGHT EVENTS The patient remains on treatment with antibiotics. No acute events over last 24 hours are reported. REVIEW OF SYSTEMS GI: denies diarrhea, Constitutional: denies fever and chills and Integumentary: denies skin rash MEDICATIONS: enoxaparin 40 mg Subcutaneous Q24H gabapentin 600 mg Oral BID methocarbamol 750 mg Oral TID metronidazole 500 mg Intravenous Q8H nortriptyline 25 mg Oral Nightly pantoprazole 40 mg Oral BID AC piperacillin-tazobactam 3.375 g 3.375 g Intravenous Q8H predniSONE 10 mg Oral Daily with breakfast sodium chloride 10 mL Intravenous 2 times per day tamsulosin 0.4 mg Oral after dinner vancomycin 500 mg Oral 4 times per day lactated ringers 125 mL/hr at 05/01/18 0956 PRN Medications acetaminophen OR acetaminophen, calcium carbonate, diazePAM, melatonin, morphine OR morphine OR morphine, naloxone, nystatin, nystatin, ondansetron OR ondansetron, oxy CODONE OR oxyCODONE OR oxyCODONE, petrolatum, polyethylene glycol, saline lock IV - when tolerating PO fluids AND sodium chloride (PF), sodium chloride 0.9 %, sodium chlori de, zolpidem PHYSICAL EXAM Vital Signs: BP 125/85 (BP Location: Right upper arm) | Pulse 97 | Temp 97.8 F (36.6 C) (Oral) | Resp 18 | Ht 1.803 m (5' 11") | Wt 95 kg (209 lb 6.4 oz) | SpO2 97% | BMI 29.21 kg/m Focused exam shows: General exam: No distress, cooperative with exam. HEENT: sclera non-icteric, no visible oral thrush Cardiovascular: regular rate and rhythm Lungs: no tachypnea, clear breath sounds. Mildly decreased at bases Abdomen: no distension, bowel sounds present, ostomy. Wound without infection. Extremities/MSK: No edema, no joint effusions Skin: No lesions, normal turgor Neurologic: Awake, cranial nerves intact. Follows commands. LABS: All labs were reviewed. CBC: Lab Results Component Value Date WBC 11.25 (H) 05/01/2018 RBC 3.62 (L) 05/01/2018 HGB 10.3 (L) 05/01/2018 HCT 32.3 (L) 05/01/2018 MCV 89.2 05/01/2018 MCH 28.4 05/01/2018 MCHC 31.9 (L) 05/01/2018 RDW 42.4 05/01/2018 PLT 352 05/01/2018 MPV 7.6 05/01/2018 DIFFTYPE MANUAL 05/01/2018 CMP: Lab Results Component Value Date NA 141 05/01/2018 K 4.0 05/01/2018 CL 101 05/01/2018 CO2 29 05/01/2018 ANIONGAP 15 05/01/2018 GLUF 128 (H) 05/01/2018 BUN 6 (L) 05/01/2018 CREATININE 1.2 05/01/2018 BCR 5 05/01/2018 CA 7.6 (L) 05/01/2018 EGFR >60 05/01/2018 ASSESSMENT & PLAN The patient is a 42 y.o.-year-old male with the following problems: Principal Problem: Sepsis (HCC) Active Problems: Cervical myelopathy (HCC) S/P laminectomy Infectious colitis Resolved Problems: * No resolved hospital problems. * 1. Severe sepsis with encephalopathy. Encephalopathy has resolved now. 2. Severe C diff infection/colitis, toxic megacolonstatus post total colectomy on 9. A segment of the rectosigmoid colon remains for which the patient will usevancomycin admi nistered via ostomy catheter placed by CRS. Pt was loosing all the enema. High dose vanco. May d/c iv metronidazole tomorrow. WBC improved. Then oral vancomycin until 7 days post iv antibiotic therapy with Zosyn until 05/12/18. Complex case that needs both C diff treatment and concomitant systemic antibiotic therapy. 3. Purulent peritonitis. No evidence of perforation. Possibly translocation due to severe c olitis. Continue withwith intravenous Zosyn for coverage of intra-abdominal infection, armani erobes.Monitor clinically. Recommend 10 days, until 05/05/18. PICC in place. 4. Leukocytosis. Antibiotics as above. Repeat CBC in the morning Downtrending. 5. Acute kidney injury. Creatinine trending down. Discussed with Dr. Juan Jose Conti MD, MPH Infectious Diseases 05/01/2018 onvers ion Transaction, Provider Unknown - 05/01/2018 1:00 PM PST Progress Notes by Ramona Candelaria RD at 05/01/18 1300 Author: Ramona Candelaria RD Service: (none) Author Type: Registered Dietitian Filed: 05/02/18 0429 Date of Service: 05/01/18 1300 Status: Signed Damper Maker: Ramona Candelaria RD (Registered Dietitian) This note also relates to the following rows which could not be included: Heart Rate - Cannot attach notes to unvalidated device data 05/01/18 1300 Subjective Timepoint Follow up Pt c/o Pt awake, sitting in bed watching TV - two correctional officers in room. Pt report s improving appetite. Fluid / Beverage Intake Oral Fluids Amount ad [place] Liquid Meal Replacement or Supplement Boost Breeze is being sent TID on meal trays Food Intake Amount of Food pt reports eating 80-100% meals Type of Food / Meals general Meal / Snack Pattern pt ordering independently Nutrition-Focused Physical Findings Digestive System (Mouth to Rectum) ileostomy - good output mixed solids/liquids Recommendations Recommended energy needs Continue diet as Rx'd - will decrease Boost Breeze to once daily p er pt preference. Following with team. Nutritional Risk Nutritional risk Moderate Follow up date 05/06/[address] Wale Hernández MD - 05/01/2018 8:18 AM PST Progress Notes by Wale Sandoval MD at 05/01/18817 Author: Wale Sandoval MD Service: Hospitalist Author Type: Physician Filed: 05/01/18923 Date of Service: 05/01/18817 Status: Addendum Damper Maker: Wale Sandoval MD (Physician) Related Notes: Original Note by Wale Sandoval MD (Physician) filed at 05/01/18918 [facility] Service: Hospitalist Progress Note Pt: Matthias Lambert AGE/SEX: 42 y.o. male ROOM: [facility]- : 1975 PCP: Per PT None ADMIT DATE: 04/19/2018 TODAY'S DATE: 05/01/2018 Hospital Day/Hospital Course: LOS: 12 days Summary 42 y/o M with history of cervical radiculopathy at C6, C7, DDD s/p posterior cervical anna ectomy, foraminotomy 5-7 on 04/19/[address] Logan, Intraoperatively course complicated by hypoensions requiring pressor, and post operatively was noted to have no movement of R arm a nd fingers and some muscle twicthing on the forearm, severe paresthesis in bilateral UE L>R, fromt high upwards over the entire trunk. Emergent MRI done showing There is newly developed T2 signal throughout the cervical cord with fusiform swelling. There appears to be potential susceptibility artifact along the paracentral region of the cord which could reflect some hemorrhage. Differential considerations would include a cord contusion versus possible ADEM in the appropriate clinical context. Given that this does not occur along a typical vascular distribution, cord infarct with subsequent hemorrhage is thought to be unlikely but not excluded. This appears to extend into the thoracic cord and if indicated, further assessment of the thoracic cord could be performed with dedicated MRI. The edema is thought to be acute. with subsequent admission to ICU for serial neuro checks and active management of BP for co rd perfusion on 04/19/18. Pt underwent LP on 04/20/18 As he remained flaccid in the RUE, but had slight improvement in sensation on the LUE. Stool later came back + for C diff, and per notes became septic, and on 04/26 emergently was taken to the OR for toxic megacolon with peritonitis and underwent total abdominal colectomy and creation of an end loop ileo colost asher by Dr Cardenas SUBJECTIVE: Patient seen and examined. He complains of abdominal pain in the area below the colostomy, described as cramping, anywhere from 6-10. He is able to move his R shoulder and R elbow of f the bed. The latter being just in the last 24 hours. He reports the L arm is hyperesthetic . ASSESSMENT & PLAN First problem in the list is the principal problem: Principal Problem: Sepsis secondary to toxic megacolon secondary to C diff with peritonitis - s/p above surgery by Dr Cardenas, they continue to follow - pt reports abdominal cramping, new from last night. WBC is reassuring, no fever, will mo nitor closely - as best as I can tell, pt is on zosyn today should be day #9 of 10 per ID, vancomycin to day is day #8 of oral and pt is also on V flagyl and off rectal vancomycin. ID is also cont inuing to follow at this time Active Problems: Cervical myelopathy (HCC) - course in the OR above confounded by hypotension, and thereafter the neuropathies listed above - R arm seems to be developing more strength in that he can now move the R elbow off the b ed although the R hand is still not moving - continue PT/OT - I am not entirely sure whether this is the reason pt is on prednisone, for now I will co ntinue this medication -> probably due to thought of ADEM - Dr Ghosh seems to have discussed case with Dr Subramanian neurologist per his note on 04/25, [place] to be ADEM vs contusion vs spinal infarct Continue gabapentin Disposition issue - gathering from notes, one issue is how to take care of ostomy given he is R handed and c urrently unable to use R hand, per Dr Callahan's last note, await further input of Dr Logan on disposition so I will await that Urinary retention? - continues to have brown catheter, can likely have voiding trial before discharge - continue tamsulosin Creatinine trending up slightly continue high rate of IVF, monitor closely DVT prophylaxis enoxaparin subcutaneous and mechanical devices Scheduled Medications: enoxaparin 40 mg Subcutaneous Q24H gabapentin 600 mg Oral BID methocarbamol 750 mg Oral TID metronidazole 500 mg Intravenous Q8H nortriptyline 25 mg Oral Nightly pantoprazole 40 mg Oral BID AC piperacillin-tazobactam 3.375 g 3.375 g Intravenous Q8H predniSONE 10 mg Oral Daily with breakfast sodium chloride 10 mL Intravenous 2 times per day tamsulosin 0.4 mg Oral after dinner vancomycin 500 mg Oral 4 times per day Continuous Infusions lactated ringers 125 mL/hr at 04/30/18 2318 PRN Medications acetaminophen OR acetaminophen, calcium carbonate, diazePAM, melatonin, morphine OR morphine OR morphine, naloxone, nystatin, nystatin, ondansetron OR ondansetron, oxy CODONE OR oxyCODONE OR oxyCODONE, petrolatum, polyethylene glycol, saline lock IV - when tolerating PO fluids AND sodium chloride (PF), sodium chloride 0.9 %, sodium chlori de, zolpidem Allergy: No Known Allergies OBJECTIVE: Vitals: Patient Vitals for the past 24 hrs: BP Temp Temp src Pulse Resp SpO2 05/01/18 0816 (!) 145/91 97.9 F (36.6 C) Oral 115 18 97 % 05/01/18 0411 113/75 97.6 F (36.4 C) Axillary 96 18 96 % 04/30/18 2340 125/80 99 F (37.2 C) Oral 97 20 98 % 04/30/18 2009 137/87 98 F (36.7 C) Axillary 94 20 98 % 04/30/18 1527 139/85 98.7 F (37.1 C) Oral 99 18 97 % 04/30/18 1138 138/89 99.2 F (37.3 C) Oral 94 18 96 % 04/30/18 0843 128/77 99 F (37.2 C) Oral 98 18 96 % I&O Detailed Table: Intake/Output Summary (Last 24 hours) at 05/01/18 0818 Last data filed at 05/01/18 0652 Gross per 24 hour Intake 38194 ml Output 68200 ml Net -671 ml No data found. Hemodynamics Last 24hrs: Physical Examination: Constitutional: Alert and mentating well. No acute respiratory distress HEENT: moist mucous membranes, pink conjunctivae and anicteric sclerae. No JVD. Cardiovascular: Mild tachycardia Pulmonary: Non labored breathing. Breath sounds are clear bilaterally. No wheezing or rale s. Abdominal: Soft and mildly tender. Ostomy bag with brown stool. Bowel sounds are present. N o rebound or guarding. Surgical site appears to be healing well, kayla in place Extremities: No edema or cyanosis. Neurological: AAO x3. No CN deficit. R forearm and hand weakness/flaccidity. Skin: No diaphoresis Psychiatric: Normal mood and affect. LABS: Recent Labs Lab 05/01/1845804/30/1839904/29/18 041 WBC 11.25* 12.01* 13.61* HGB 10.3* 9.6* 9.4* HCT 32.3* 29.7* 28.8* PLT 352 296 243 Recent Labs Lab 05/01/1845804/30/180 04/29/18 0413 NA 141 142 141 K 4.0 3.6 4.0 CL 101 105 106 CO2 29 30 26 BUN 6* 7* 9 CREATININE 1.2 1.0 1.0 Phosphorus: Lab Results Component Value Date PHOS 3.4 05/01/2018 Invalid input(s): LABALBU Recent Labs Lab 05/01/1845804/30/1839904/29/18 0413 MG 1.7 1.8 1.8 No results for input(s): AMYLASE in the last 168 hours. No results for input(s): PHART, PO2ART, XDH1PCA, C5VOYMHG, BEART in the last 168 hours. No results for input(s): APTT, INR, PTT in the last 168 hours. No results for input(s): TSH, T3FREE, FREET4 in the last 168 hours. No results for input(s): CKTOTAL, TROPONINI, TROPONINT, CKMBINDEX in the last 168 hours. PROBLEM LIST Principal Problem: Sepsis (HCC) Active Problems: Cervical myelopathy (HCC) S/P laminectomy Infectious colitis More than 35 mins were spent on the review of H/P, imaging and labs, formulation of assessm ent and plan, discussion with the patient/family, staff and providers. WALE SANDOVAL MD 05/01/2018 8:18 AM onversion Transac tion, Provider Unknown - 05/01/2018 5:48 AM PSTFormatting of this note might be different f rom the original. Nurse Progress Note by Kenisha Todd RN at 05/01/18547 Author: Kenisha Todd RN Service: (none) Author Type: Registered Nurse Filed: 05/01/18549 Date of Service: 05/01/18547 Status: Signed Damper Maker: Kenisha Todd RN (Registered Nurse) Pt c/o having numbness around shoulders/upper back for past few days and was encouraged to discuss this with the neuro MD. VSS. PRN oxycodone given x2 for pain. Abdomen binder measured for patient with ileostomy. W as unable to find compression sleeve on this unit. End of shift review complete. Kenisha Todd onver antonio Transaction, Provider Unknown - 04/30/2018 7:40 PM PST Nurse Progress Note by Alesha Johnson RN at 04/30/181939 Author: Alesha Johnson RN Service: (none) Author Type: Registered Nurse Filed: 04/30/181941 Date of Service: 04/30/181939 Status: Signed Damper Maker: Alesha Johnson RN (Registered Nurse) Pt vitals stable. Medicated for pain throughout the day. Ostomy appliance changed by competitive shopper. Needs and concerns addressed with pt. End of shift audit complete. Alesha Johnson RN onver antonio Transaction, Provider Unknown - 04/30/2018 2:34 PM PST Case Management by PARDEEP Armstrong at 04/30/18 9556 Author: PARDEEP Armstrong Service: (none) Author Type: Meat Washer Filed: 04/30/18 1437 Date of Service: 04/30/18 1434 Status: Signed Damper Maker: PARDEEP Armstrong (Meat Washer) CM received call from Wound Care (Frida [phone]) asking if the [facility] ([facility]) will have the ostomy supplies the patient n eeds when he returns there. CM called [facility] and spoke to RN who said that [facility] usually provided initial needed supplie s (1 week) and then the shelter will order the supplies needed for the patient after that. CM relayed information to Wound Care. DONTA Alvarado Jam Rod ARNP - 04/30/2018 10:01 AM PST Progress Notes by DELANEY Cherry at 04/30/18 1001 Author: DELANEY Cherry Service: General Surgery Author Type: Nurse Alek urena Filed: 04/30/18 1003 Date of Service: 04/30/18 1001 Status: Signed Damper Maker: DELANEY Cherry (Nurse Practitioner) [facility] Service: Colon & Rectal Surgery Progress Note Hospital Day: LOS: 11 days Post-Op Day: 5 Day Post-Op SUBJECTIVE Patient Summary: Total colectomy end ileocolostomy Events Overnight: None acute. Pt is tolerating a general diet without N/V. His osto my is passing gas and liquid stool 430 mls/24 hrs. Deneis chest pain and SOB. Vitals and labs stable. Scheduled Medications enoxaparin 40 mg Subcutaneous Q24H gabapentin 600 mg Oral BID methocarbamol 750 mg Oral TID metronidazole 500 mg Intravenous Q8H nortriptyline 25 mg Oral Nightly pantoprazole 40 mg Oral BID AC piperacillin-tazobactam 3.375 g 3.375 g Intravenous Q8H predniSONE 10 mg Oral Daily with breakfast sodium chloride 10 mL Intravenous 2 times per day tamsulosin 0.4 mg Oral after dinner vancomycin 500 mg Oral 4 times per day Continuous Infusions lactated ringers 125 mL/hr at 04/30/18 0357 PRN Medications acetaminophen OR acetaminophen, calcium carbonate, diazePAM, melatonin, morphine OR morphine OR morphine, naloxone, nystatin, nystatin, ondansetron OR ondansetron, oxy CODONE OR oxyCODONE OR oxyCODONE, petrolatum, polyethylene glycol, saline lock IV - when tolerating PO fluids AND sodium chloride (PF), sodium chloride 0.9 %, sodium chlori de, zolpidem OBJECTIVE Vital Signs: BP 128/77 (BP Location: Right upper arm) | Pulse 98 | Temp 99 F (37.2 C) (Oral) | Re sp 18 | Ht 1.803 m (5' 11") | Wt 95 kg (209 lb 6.4 oz) | SpO2 96% | BMI 29.21 kg/m Patient Vitals for the past 24 hrs: BP Temp Temp src Pulse Resp SpO2 04/30/18 0843 128/77 99 F (37.2 C) Oral 98 18 96 % 04/30/18 0352 130/83 98.4 F (36.9 C) Oral 90 20 95 % 04/29/18 2334 129/80 98.8 F (37.1 C) Oral 86 18 97 % 04/29/18 1925 146/86 98.4 F (36.9 C) Oral 105 18 100 % 04/29/18 1158 136/86 98.4 F (36.9 C) Oral 89 18 96 % Physical Exam Constitutional: He is oriented to person, place, and time. He appears well-developed and we ll-nourished. Cardiovascular: Normal rate. Pulmonary/Chest: Effort normal. Abdomina/Gl: Soft. He exhibits no distension and no mass. There is no tenderness. There is no rebound and no guarding. Neurological: He is alert and oriented to person, place, and time. Skin: Skin is warm and dry. Psychiatric: He has a normal mood and affect. His behavior is normal. Nursing note and vitals reviewed. DATA CBC: Lab Results Component Value Date WBC 12.01 (H) 04/30/2018 RBC 3.36 (L) 04/30/2018 HGB 9.6 (L) 04/30/2018 HCT 29.7 (L) 04/30/2018 MCV 88.5 04/30/2018 MCH 28.6 04/30/2018 MCHC 32.3 04/30/2018 RDW 42.0 04/30/2018 PLT 296 04/30/2018 MPV 8.2 04/30/2018 DIFFTYPE MANUAL 04/30/2018 CMP: Lab Results Component Value Date NA 142 04/30/2018 K 3.6 04/30/2018 CL 105 04/30/2018 CO2 30 04/30/2018 ANIONGAP 11 04/30/2018 GLUF 130 (H) 04/30/2018 BUN 7 (L) 04/30/2018 CREATININE 1.0 04/30/2018 BCR 7 04/30/2018 CA 7.8 (L) 04/30/2018 EGFR >60 04/30/2018 Magnesium: Lab Results Component Value Date MG 1.8 04/30/2018 Phosphorus: Lab Results Component Value Date PHOS 3.0 04/30/2018 PROBLEM LIST Principal Problem: Sepsis (HCC) Active Problems: Cervical myelopathy (HCC) S/P laminectomy Infectious colitis ASSESSMENT & PLAN POD # 5 from a Total colectomy end ileocolostomy whose bowel function has returned -Encourage ambulation -General diet ok -Continue IV abx per ID recommendations -Abd binder ok for comfort, cut hole for ostomy appliance. -Please leave red rubber catheter in place. If red rubber catheter advances out ok to push back in. Do not replace if it completely comes out. Disposition: Code Status: Full Code DLEANEY CHERRY 04/30/2018 Mundo Granda MD - 04/30/2018 9:10 AM PST . Progress Notes by Mundo Ghosh MD at 04/30/18 09 Author: Mundo Ghosh MD Service: Hospitalist Author Type: Physician Filed: 04/30/18 1202 Date of Service: 04/30/18909 Status: Signed Damper Maker: Mundo Ghosh MD (Physician) [facility] Service: Hospitalist Progress Note Pt: Matthias Lambert AGE/SEX: 42 y.o. male ROOM: 07/9107-1 : 1975 PCP: Michel PT None ADMIT DATE: 04/19/2018 TODAY'S DATE: 04/30/2018 Hospital Day/Hospital Course: LOS: 11 days Per ICU 42 y.o.malewith a Diagnoses of Cervical radiculopathy at C6, Cervical radiculopathy at C7, and DDD (degenerative disc disease) underwent CERVICAL-LAMINECTOMY POSTERIOR (N/A) - Pos terior Cervical Laminectomy, Foraminotomy five to seven today. Intraoperatively had h some hypotension requiring vasopressin otherwise uncomplicated per r eport. Post op, he was noted to have no movement of right arm or fingers, some muscle twitch ing noted in the forearm. As well severe paresthesias in b/l UE, L>R and from thigh upwards over entire trunk. MRI done emergently showed following findings : There is newly developed T2 signal throughout the cervical cord with fusiform swelling. There appears to be potential susceptibility artifact along the paracentral region of the cord which could reflect some hemorrhage. Differential considerations would include a cord contusion versus possible ADEM in the appropriate clinical context. Given that this does not occur along a typical vascular distribution, cord infarct with subsequent hemorrhage is thought to be unlikely but not excluded. This appears to extend into the thoracic cord and if indicated, further assessment of the thoracic cord could be performed with dedicated MRI. The edema is thought to be acute. Patient is admitted to ICU for serial neuro checks and active management of BP for cord per fusion" ICU Timeline: 04/19/2018: ICU admission secondary to need for serial neuro checks due to acute neuro c hanges and paralysis 04/20: Slight improvement in sensation in LUE; remains flaccid in RUE; LP performed. Stool came back positive for C. difficile and he becomes septic. On April 25 he went to or emergently toxic megacolon with peritonitis and status post Total abdominal colectomy and creation of an end loop ileo-colostomy SUBJECTIVE: Patient seen and examine. He is feeling better. Stool in the bag. Talking to me appropriate ly.. Decline to have specifically nausea and vomiting or chest pain. He is not short of gerald th. Still he cannot move his right hand. He can move his right arm at the shoulder joint. Scheduled Medications: enoxaparin 40 mg Subcutaneous Q24H gabapentin 600 mg Oral BID methocarbamol 750 mg Oral TID metronidazole 500 mg Intravenous Q8H nortriptyline 25 mg Oral Nightly pantoprazole 40 mg Oral BID AC piperacillin-tazobactam 3.375 g 3.375 g Intravenous Q8H predniSONE 10 mg Oral Daily with breakfast sodium chloride 10 mL Intravenous 2 times per day tamsulosin 0.4 mg Oral after dinner vancomycin 500 mg Oral 4 times per day Continuous Infusions lactated ringers 125 mL/hr at 04/30/18 0357 PRN Medications acetaminophen OR acetaminophen, calcium carbonate, diazePAM, melatonin, morphine OR morphine OR morphine, naloxone, nystatin, nystatin, ondansetron OR ondansetron, oxy CODONE OR oxyCODONE OR oxyCODONE, petrolatum, polyethylene glycol, saline lock IV - when tolerating PO fluids AND sodium chloride (PF), sodium chloride 0.9 %, sodium chlori de, zolpidem Allergy: No Known Allergies OBJECTIVE: Vitals: Patient Vitals for the past 24 hrs: BP Temp Temp src Pulse Resp SpO2 04/30/18 0843 128/77 99 F (37.2 C) Oral 98 18 96 % 04/30/18 0352 130/83 98.4 F (36.9 C) Oral 90 20 95 % 04/29/18 2334 129/80 98.8 F (37.1 C) Oral 86 18 97 % 04/29/18 1925 146/86 98.4 F (36.9 C) Oral 105 18 100 % 04/29/18 1158 136/86 98.4 F (36.9 C) Oral 89 18 96 % I&O Detailed Table: Intake/Output Summary (Last 24 hours) at 04/30/18 0910 Last data filed at 04/30/18 0557 Gross per 24 hour Intake 3900 ml Output 69126 ml Net -7030 ml No data found. Hemodynamics Last 24hrs: Physical Examination: Constitutional: Awake and alert and talking to me appropriately. HEENT: Neck supple, no JVD, non icteric sclera. Cardiovascular: Normal rate S1, S2 Pulmonary/Chest: Chest clear b/l Abdominal: Abdomen is soft. Tender today at the surgical site Extremeties/Musculoskeletal: Not having any edema. Neurological: Alert and oriented to person, place, and time. Power is 1 out of 5 in the ri ght arm. He can move his arm at the elbow and the right shoulder. He cannot move his right w rist and he cannot move his right hand fingers. Decreased sensation. Power is 5 out of 5 in the left arm and left leg. Skin: Skin is warm and dry. No rash noted. No erythema. No pallor. Psychiatric: Has a normal mood and affect. Behavior is normal. Judgment normal. Not suicida l LABS: Recent Labs Lab 04/30/180 04/29/1841204/28/18 0423 WBC 12.01* 13.61* 17.99* HGB 9.6* 9.4* 10.2* HCT 29.7* 28.8* 30.5* PLT 296 243 233 Recent Labs Lab 04/30/180 04/29/183 04/28/18 0423 NA 142 141 142 K 3.6 4.0 3.6 CL 105 106 108 CO2 30 26 25 BUN 7* 9 16 CREATININE 1.0 1.0 1.15 Phosphorus: Lab Results Component Value Date PHOS 3.0 04/30/2018 Recent Labs Lab 04/30/180 04/29/183 04/28/18 0423 MG 1.8 1.8 1.8 Results Procedure Component Value Units Date/Time Neuromyelitis optica IgG, CSF [[id number]] Collected: 04/20/18 1600 Updated: 04/30/18 0006 NEURO OPTICA IGG CSF < 1:1 CSF IgG index [[id number]] Collected: 04/20/18 1600 Specimen: Cerebrospinal Fluid from Lumbar Puncture Updated: 04/29/18 0909 IGG,CSF 5.6 mg/dL ALBUMIN,CSF 34 mg/dL IgG 917 mg/dL Albumin 3.8 mg/dL CSF, IGG/ALB, RATIO 0.16 CSF/SERUM INDEX 0.7 Anaerobic Culture W/Gram Stain [[id number]] Collected: 04/25/18 1635 Specimen: Abdomen Updated: 04/29/18 0824 Specimen Description ABDOMEN SPECIAL REQUESTS CX AND SENSITIVITY GRAM STAIN 2+ GRAM STAIN WBC'S SEEN GRAM STAIN NO EPITHELIAL CELLS SEEN GRAM STAIN NO ORGANISMS SEEN CULTURE NO GROWTH 4 DAYS Blood Culture Set 1 [[id number]] Collected: 04/23/18 0851 Specimen: Blood from Blood, peripheral draw Updated: 04/29/18602 Specimen Description BLOOD, PERIPHERAL DRAW SPECIAL REQUESTS RAC CULTURE NO GROWTH 6 DAYS Blood Culture Set 2 [[id number]] Collected: 04/23/18 0858 Specimen: Blood from Blood, peripheral draw Updated: 04/29/18 06 Specimen Description BLOOD, PERIPHERAL DRAW SPECIAL REQUESTS LWRIST CULTURE NO GROWTH 6 DAYS Myelin basic protein, CSF [[id number]] (Abnormal) Collected: 04/20/18 1600 Specimen: Cerebrospinal Fluid from Lumbar Puncture Updated: 04/27/18 1316 Myelin Basic Prot, CSF >167.0 (H) ng/mL Diagnostic Imaging: Impressions only: Mri Brain With And Without Contrast Result Date: 04/20/2018 1. No acute infarction, acute intracranial hemorrhage, cerebral edema pathological mass ef fect. 2. Small nonspecific 6 mm FLAIR hyperintense focus in the right posterior pericallosa l region is stable compared to an MRI from 09/14/2016. Given the location this may represent a small demyelinating focus however no other lesions are visualized. Clinical correlation is recommended. Signed by: MD Arin, Nubia Sign Date/Time: 04/20/2018 6:56 AM Mri Cervical Spine Without Contrast Result Date: 04/19/2018 1. Postsurgical changes are noted with anterior cervical fusion from C5 through C7 with dec ompression laminectomies posteriorly. 2. There is newly developed T2 signal throughout the c ervical cord with fusiform swelling. There appears to be potential susceptibility artifact along the paracentral region of the cord which could reflect some hemorrhage. Differential considerations would include a cord contusion versus possible ADEM in the appropriate clinic al context. Given that this does not occur along a typical vascular distribution, cord infar ct with subsequent hemorrhage is thought to be unlikely but not excluded. This appears to e xtend into the thoracic cord and if indicated, further assessment of the thoracic cord could be performed with dedicated MRI. The edema is thought to be acute. 3. There is potential i mpingement of the left C5 and C7 nerve root. 4. Critical result: Imaging findings are discus sed with the ordering provider by telephone at 1:25 p.m.. Signed by: Darryl Pat Sign Da te/Time: 04/19/2018 1:30 PM Mri Thoracic Spine With And Without Contrast Result Date: 04/20/2018 1. The previously visualized abnormal spinal cord edema in the cervical spinal cord is see n extending in the thoracic spinal cord up to the level of T4, below which the cord shows no rmal signal intensity and caliber. This abnormal cord signal appears to be slightly eccentr ic towards the right side and involves the central cord. No abnormal enhancement noted. Sig michelle by: MD Arin, Nubia Sign Date/Time: 04/20/2018 7:02 AM Mra Spine With And Without Contrast Result Date: 04/20/2018 1. There is no enhancement of the cord to suggest active demyelination. Additionally, no en hancement of the cord or surrounding the cord likely excludes a dural AVF and/or AVM of the cord as the etiology of hemorrhage. Differential considerations of etiology of the hemorrha ge within the cord remain unchanged and may possibly include spontaneous hemorrhage versus p ressure gradient differences status post decompression versus underlying bleeding diathesis. Signed by: Darryl Pat Sign Date/Time: 04/20/2018 2:52 PM X-ray C-arm Fluoro Up To 1 Hour Result Date: 04/19/2018 Intraoperative fluoroscopic assessment. Signed by: Jose C Russell Sign Date/Time: 04/19/2018 2 :42 PM PROBLEM LIST Principal Problem: Sepsis (HCC) Active Problems: Cervical myelopathy (HCC) S/P laminectomy Infectious colitis Resolved Problems: * No resolved hospital problems. * ASSESSMENT & PLAN 42 y.o.malewith a Diagnoses of Cervical radiculopathy at C6, Cervical radiculopathy at C7, and DDD (degenerative disc disease) underwent CERVICAL-LAMINECTOMY POSTERIOR (N/A) - Pos terior Cervical Laminectomy, Foraminotomy five to seven today. Intraoperatively had h some hypotension requiring vasopressin otherwise uncomplicated per r eport. Post op, he was noted to have no movement of right arm or fingers, some muscle twitch ing noted in the forearm. Active Problems: Fever with sepsis with infectious colitis due to C. difficile with toxic megacolon and sally tonitis: Fever curve is much better today. Talking to me appropriately. Is not in any kind of distr ess. On April 25, 2011 abdominal distention, fever, tachycardia and hypotension secondary to toxic megacolon. Went to the operating room emergently. SP Total abdominal colectomy and cr eation of an end loop ileo-colostomy with operating finding consistent with toxic megacolon and peritonitis. Fever curve has improved. White cell count is getting better.. Stool is pos itive for C. difficile. CT finding consistent with infectious colitis. GI has already evalua sara the patient. Currently vancomycin day #7 oral also received IV Flagyl that has been disc ontinued. Now on IV Zosyn day #8 he also received rectal vancomycin. His blood pressure has improved. Rest of assessment and plan is to same. Cervical myelopathy (HCC) S/P laminectomy. Postoperatively he was hypotensive. He was noted to have a weakness on the right arm and finger with muscle twitching. He is moving his right arm at the shoulder j oint and at the elbow. Cannot flex or extend his right wrist. Cannot move his fingers. He sa id he is numb but can have the sensation now. Decreased sensation in the abdominal wall as w ell. More likely related to ADEM versus contusion versus infarct. On 04/25/[address] Subramanian she is not inclined towards demyelinating disease. Blood pressure is better now. Resolved Problems: * No resolved hospital problems. * Patient diagnosed with: , and I agree with the following nutritional recommendations: Recommendations Recommended energy needs: Advance diet once indicated. Boost Breeze ordered TID for pt. Enc ourage pt to consume these. If anticipate prolonged NPO/clear liquids, recommend nutrition s upport as pt has had inadequate PO for 1 week already. MUNDO GHOSH MD, FACP 04/30/2018 9:10 AM Dictation software, Kontagent, used which may contain error for similar sounding words even af ter review. Personal communication requested for any clarification. Portions of this chart may have been copied from previous notes for continuity of care purp ose onversion Transac tion, Provider Unknown - 04/30/2018 9:06 AM PSTFormatting of this note might be different f rom the original. Therapy Progress Note by Vikas Garcia PT at 04/30/18905 Author: Vikas Garcia PT Service: (none) Author Type: Physical Therapist Filed: 04/30/18 1147 Date of Service: 04/30/18905 Status: Signed Damper Maker: Vikas Garcia PT (Physical Therapist) PHYSICAL THERAPY TREATMENT NOTE PT Received On: 04/30/18 Reason for Treatment: Spinal surgery (cervical laminectomy and foraminotomy) Requires PT Follow Up: Yes PT Eval/Reassessment Date: 04/30/18 Recommendations: Prior Setting Barriers to Discharge: Self-care Deficits Impacting Functional Gem, Physical Defic its Impacting Functional Gem, Pain PT Ready for Discharge: Yes Plan Treatment/Interventions: Continue per Primary PT POC, Balance training, Bed mobility traini ng, Family training, Gait training, Therapeutic exercise, Stair training, Transfer training Progress: Progressing toward goals PT Frequency: 5-7x/wk, Once per day Care Duration (# of days): 7 # of days Summary Comments: pt. supine in bed and agreeable to therapy. Reviewed spinal precautions with pt. able to get them with no assistance but needs cues when moving to maintain precautions. Wo rked with pt's R shoulder with focus on AAROM/AROM (see below for details). pt. reports wh en he gets out of bed that it feels like his abdomincal incision is ripping. Talked with RN about getting pt a small pillow or talking to physician about sometime of binder to improve pain with movement. pt. supine in bed, guards present. Precautions Spinal Precautions: Cervical Other Precautions: Fall precautions, flaccid RUE, impulsivity, Ankle shackles, ostomy Cognition Overall Cognitive Status: Within Functional Limits Orientation Level: Oriented THERAPEUTIC EXERCISE Therapeutic Exercises: AAROM Right, AROM Right AAROM Right: Entire UE AAROM Comments: shoulder flexion/extension, abduction. Elbow flexion/extension, wrist flex ion/extension. Assisted as needed with pt. mostly 2/5 with movements except IR which he was 3/5. Hand has little movement and is about 1/5 AROM Right: Entire UE AROM Comments: shoulder flexion/extension, abduction. Elbow flexion/extension, wrist flexi on/extension. Assisted as needed with pt. mostly 2/5 with movements except IR which he was 3/5. Hand has little movement and is about 1/5 Activity Tolerance: Patient limited by pain Nurse Made Aware: yes Safety Devices in Place: (call light in reach) Restraints Initially in Place: No The patient reported pain rated at a 6/10. RN was notified Education Completed: Education Topics: [] Rationale for PT [] PT POC [] DC planning [x] Precautions [x] Exercises [] Bed mobility [] Transfer training with hand placement [] Gait training [] Stair training [] Use of gait belt [] Other Completed with: [x] Patient [] Spouse [] Significant other [] Family [] C aregiver [] Other Completed by: [x] Verbal education [x] Demonstration [] Handout [] Other: Response to Education: [x] Stated Understanding [x] Reinforcement necessary [] Returned demonstration [] Demonstrated understanding [] No evidence of learning [] Refused PT Goals Pt Will Go Supine To Sit: New / revised goal, With modified independence Pt Will Go Sit To Supine: Not met, New / revised goal, With modified independence Pt Will Transfer Sit to Stand: Not met, New / revised goal, With modified independence Pt Will Ambulate: Not met, greater than 500 feet Ambulate Level Assist: Not met, With supervision Pt Will Go Up / Down Stairs: Discontinued (comment) ([facility] Stairs Level of Assist: With supervision Reflects last filed data of patient's status; may be from multiple contributors AChoIsabella durham MD - 04/30/2018 7:40 AM PST Progress Notes by Isabella Duval MD at 04/30/18739 Author: Isabella Duval MD Service: Neurosurgery Author Type: Physician Filed: 04/30/18817 Date of Service: 04/30/18739 Status: Signed Damper Maker: Isabella Duval MD (Physician) [facility] Service: Neurosurgery Progress Note Hospital Day: LOS: 11 days Post-Op Day: 5 Days Post-Op SUBJECTIVE Patient Summary: 42 year old s/p cervical laminectomy with hypotensive episode. Awoke with RUE paralysis. Ischemic colitis with total colectomy. Events Overnight: None Scheduled Medications enoxaparin 40 mg Subcutaneous Q24H gabapentin 600 mg Oral BID methocarbamol 750 mg Oral TID metronidazole 500 mg Intravenous Q8H nortriptyline 25 mg Oral Nightly pantoprazole 40 mg Oral BID AC piperacillin-tazobactam 3.375 g 3.375 g Intravenous Q8H predniSONE 10 mg Oral Daily with breakfast sodium chloride 10 mL Intravenous 2 times per day tamsulosin 0.4 mg Oral after dinner vancomycin 500 mg Oral 4 times per day Continuous Infusions lactated ringers 125 mL/hr at 04/30/18 0357 PRN Medications acetaminophen OR acetaminophen, calcium carbonate, diazePAM, melatonin, morphine OR morphine OR morphine, naloxone, nystatin, nystatin, ondansetron OR ondansetron, oxy CODONE OR oxyCODONE OR oxyCODONE, petrolatum, polyethylene glycol, saline lock IV - when tolerating PO fluids AND sodium chloride (PF), sodium chloride 0.9 %, sodium chlori de, zolpidem OBJECTIVE Vital Signs: BP 130/83 (BP Location: Right upper arm) | Pulse 90 | Temp 98.4 F (36.9 C) (Oral) | Resp 20 | Ht 1.803 m (5' 11") | Wt 95 kg (209 lb 6.4 oz) | SpO2 95% | BMI 29.21 kg/m AOx3, NAD 5/5 strength BLE, LUE; RUE 1-2/5 delt, biceps, 1/5 triceps, 0/5 wrist, laboratory animal care veterinarian, intrinsics PROBLEM LIST Principal Problem: Sepsis (HCC) Active Problems: Cervical myelopathy (HCC) S/P laminectomy Infectious colitis ASSESSMENT & PLAN Continue current management for pain, will need dispo as RUE paralysis makes ostomy care im possible. Disposition: Senior Care Code Status: Full Code Isabella Duval MD 04/30/2018 onversion Tra nsaction, Provider Unknown - 04/30/2018 6:49 AM PSTFormatting of this note might be differe nt from the original. Nurse Progress Note by Kenisha Todd RN at 04/30/18 0649 Author: Kenisha Todd RN Service: (none) Author Type: Registered Nurse Filed: 04/30/18 0650 Date of Service: 04/30/1849 Status: Signed Damper Maker: Kenisha C Todd, RN (Registered Nurse) Pain managed with prn oxycodone X2 and morphine X1. Pt states he has had increased thirst and has been diuresing very frequently large amounts ever since he had the surgery. No acute changes. VSS. End of shift review complete. Kenisha Todd onver antonio Transaction, Provider Unknown - 04/30/2018 5:10 AM PST Nurse Progress Note by Vicki Corona RN at 04/30/18509 Author: Vicki Corona RN Service: Mortar Mixer Author Type: Registered Nurse Filed: 04/30/18509 Date of Service: 04/30/18509 Status: Signed Damper Maker: Vicki Corona RN (Registered Nurse) Sepsis team signing off. Please contact us with any questions or concerns. Vicki Corona RN onver antonio Transaction, Provider Unknown - 04/29/2018 7:46 PM PST Nurse Progress Note by Larisa Taylor RN at 04/29/181945 Author: Larisa Taylor RN Service: (none) Author Type: Registered Nurse Filed: 04/29/181948 Date of Service: 04/29/181945 Status: Signed Damper Maker: Larisa Taylor RN (Registered Nurse) Pt had PICC placed today in E. Medicated for pain with oxy x2 and breakthrough pain with morphine x2. Ileostomy was leaky at times, required a large amount of stomahesive to firmly seal. Pt had hair washed in shower today, uneventful shift. End of shift chart review comple te. Larisa Taylor RN 7:49 PM Giovani Gallegos MD - 04/29/2018 6:29 PM PSTFormatting of this note might be different from the or iginal. Progress Notes by Giovani Callahan MD at 04/29/18 1109 Author: Giovani Callahan MD Service: Neurosurgery Author Type: Physician Filed: 04/29/181837 Date of Service: 04/29/181828 Status: Signed Damper Maker: Giovani Callahan MD (Physician) [facility] Service: Neurological Surgery Progress Note Hospital Day: LOS: 10 days SUBJECTIVE I am covering for neurosurgery today. Dr. Logan patient S/P cervical laminectomy with postop right arm weakness and now with col ectomy with ileocolostomy. No new complaints today. Wants to be able to continue gabapentin and oxycodone upon discharge. OBJECTIVE Vital Signs: BP 136/86 (BP Location: Right upper arm) | Pulse 89 | Temp 98.4 F (36.9 C) (Oral) | Resp 18 | Ht 1.803 m (5' 11") | Wt 95 kg (209 lb 6.4 oz) | SpO2 96% | BMI 29.21 kg/m Input/Output Last 3 shifts I/O last 3 completed shifts: In: 2977.7 [P.O.:1100; I.V.:1877.7] Out: 71227 [Urine:40277; Stool:450] Input/Output Last shift No intake/output data recorded. Physical Exam: Alert and oriented x 3. Here with guards. Moves LUE and BLE to command. Right arm minimal shoulder movement otherwise 0/5. Incision C/D/I. PROBLEM LIST Principal Problem: Sepsis (HCC) Active Problems: Cervical myelopathy (HCC) S/P laminectomy Infectious colitis ASSESSMENT & PLAN -Continue with rehab PT/OT efforts. -Disposition to be determined when Dr. Logan returns. Unable to manage colostomy by himse lf with only one arm functioning. GIOVANI CALLAHAN MD 04/29/2018 Oracio Baker MD - 04/29/2018 3:13 PM PSTFormatting of this note might be different from the concepcion mojica. Progress Notes by Oracio Villaseñor MD at 04/29/18 5083 Author: Oracio Villaseñor MD Service: Infectious Disease Author Type: Physic ruthy Filed: 04/29/181923 Date of Service: 04/29/18 151 Status: Signed Damper Maker: Oracio Villaseñor MD (Physician) [facility] Service: Infectious Diseases Progress Note Hospital Day: LOS: 10 days Post-Op Day: 4 Days Post-Op CC: Follow up on C diff, peritonitis SUBJECTIVE/OVERNIGHT EVENTS Patient feeling better today, took a shower. WBC down. Afebrile. Receiving enteric vancomycin without problems now. REVIEW OF SYSTEMS Constitutional: denies fever and chills and Integumentary: denies skin rash MEDICATIONS: enoxaparin 40 mg Subcutaneous Q24H gabapentin 600 mg Oral BID methocarbamol 750 mg Oral TID metronidazole 500 mg Intravenous Q8H nortriptyline 25 mg Oral Nightly pantoprazole 40 mg Oral BID AC piperacillin-tazobactam 3.375 g 3.375 g Intravenous Q8H predniSONE 10 mg Oral Daily with breakfast sodium chloride 10 mL Intravenous 2 times per day tamsulosin 0.4 mg Oral after dinner vancomycin 500 mg Oral 4 times per day lactated ringers 125 mL/hr at 04/29/18 0729 PRN Medications acetaminophen OR acetaminophen, calcium carbonate, diazePAM, melatonin, morphine OR morphine OR morphine, naloxone, nystatin, nystatin, ondansetron OR ondansetron, oxy CODONE OR oxyCODONE OR oxyCODONE, petrolatum, polyethylene glycol, saline lock IV - when tolerating PO fluids AND sodium chloride (PF), sodium chloride 0.9 %, sodium chlori de, zolpidem PHYSICAL EXAM Vital Signs: BP 136/86 (BP Location: Right upper arm) | Pulse 89 | Temp 98.4 F (36.9 C) (Oral) | Resp 18 | Ht 1.803 m (5' 11") | Wt 95 kg (209 lb 6.4 oz) | SpO2 96% | BMI 29.21 kg/m Temp (24hrs), Av F (36.7 C), Min:96.9 F (36.1 C), Max:98.4 F (36.9 C) General Appearance: Alert, cooperative, no distress. Head: Normocephalic, without obvious abnormality, atraumatic. Lips, mucosa, and tongue normal; dentition normal; no thrush present. Eyes: PERRL, conjunctiva/corneas clear, EOM's intact. Throat: Oropharynx without exudates. Neck: Supple, symmetrical, trachea midline, no adenopathy; thyroid: no enlargement/tenderness/nodules; no carotid bruit or JVD Back: Symmetric, no curvature, ROM normal, no CVA tenderness Lungs: Clear to auscultation bilaterally, respirations unlabored Chest Wall: No tenderness or deformity Heart: Regular rate and rhythm, S1 and S2 normal, no murmur noted, no rub or gallop Abdomen: slightly Distended, painful to palpation, bowel sounds hypoactive all four qu adrants, no masses, no organomegaly, exploratory laparotomy wound, ostomy with ostomy bag an d some small amount of serosanguineous fluid. Extremities: Extremities normal, atraumatic, no cyanosis or edema Pulses: 2+ and symmetric all extremities Skin: Skin color, texture, turgor normal, no rashes or lesions Lymph nodes: Cervical, supraclavicular, and axillary nodes normal Neurologic: alert and rate at 3. Flaccid right arm. Venous access: PIV No signs of infection. LABS: All labs reviewed. CBC: Lab Results Component Value Date WBC 13.61 (H) 04/29/2018 RBC 3.24 (L) 04/29/2018 HGB 9.4 (L) 04/29/2018 HCT 28.8 (L) 04/29/2018 MCV 88.9 04/29/2018 MCH 29.0 04/29/2018 MCHC 32.6 04/29/2018 RDW 42.9 04/29/2018 PLT 243 04/29/2018 MPV 7.9 04/29/2018 DIFFTYPE MANUAL 04/29/2018 CMP: Lab Results Component Value Date NA 141 04/29/2018 K 4.0 04/29/2018 CL 106 04/29/2018 CO2 26 04/29/2018 ANIONGAP 13 04/29/2018 GLUF 115 (H) 04/29/2018 BUN 9 04/29/2018 CREATININE 1.0 04/29/2018 BCR 9 04/29/2018 CA 7.8 (L) 04/29/2018 EGFR >60 04/29/2018 MICROBIOLOGY Results Procedure Component Value Units Date/Time CSF IgG index [[id number]] Collected: 04/20/18 1600 Specimen: Cerebrospinal Fluid from Lumbar Puncture Updated: 04/29/18 0909 IGG,CSF 5.6 mg/dL ALBUMIN,CSF 34 mg/dL IgG 917 mg/dL Albumin 3.8 mg/dL CSF, IGG/ALB, RATIO 0.16 CSF/SERUM INDEX 0.7 Anaerobic Culture W/Gram Stain [[id number]] Collected: 04/25/18 1635 Specimen: Abdomen Updated: 04/29/18 0824 Specimen Description ABDOMEN SPECIAL REQUESTS CX AND SENSITIVITY GRAM STAIN 2+ GRAM STAIN WBC'S SEEN GRAM STAIN NO EPITHELIAL CELLS SEEN GRAM STAIN NO ORGANISMS SEEN CULTURE NO GROWTH 4 DAYS Blood Culture Set 1 [[id number]] Collected: 04/23/18 0851 Specimen: Blood from Blood, peripheral draw Updated: 04/29/18602 Specimen Description BLOOD, PERIPHERAL DRAW SPECIAL REQUESTS RAC CULTURE NO GROWTH 6 DAYS Blood Culture Set 2 [[id number]] Collected: 04/23/18 0858 Specimen: Blood from Blood, peripheral draw Updated: 04/29/18602 Specimen Description BLOOD, PERIPHERAL DRAW SPECIAL REQUESTS LWRIST CULTURE NO GROWTH 6 DAYS Myelin basic protein, CSF [[id number]] (Abnormal) Collected: 04/20/18 1600 Specimen: Cerebrospinal Fluid from Lumbar Puncture Updated: 04/27/18 1316 Myelin Basic Prot, CSF >167.0 (H) ng/mL IMAGING Reviewed images of : No new images for review ASSESSMENT & PLAN The patient is a 42 y.o.-year-old male with the following problems: Principal Problem: Sepsis (HCC) Active Problems: Cervical myelopathy (HCC) S/P laminectomy Infectious colitis 1. Severe sepsis with encephalopathy. Encephalopathy has resolved now. 2. Severe C diff infection/colitis, toxic megacolonstatus post total colectomy on 9. A segment of the rectosigmoid colon remains for which the patient will usevancomycin admi nistered via ostomy catheter placed by CRS. PT was loosing all the enema. High dose vanco and iv flagyl for now. WBC improved. Once WBC normal will d/c flagyl. Then oral vancomycin until 7 days post iv an tibiotic therapy with Zosyn. Complex case that needs both C diff treatment and concomitant systemic antibiotic therapy. 3. Purulent peritonitis. No evidence of perforation. Possibly translocation due to severe c olitis. Continue withwith intravenous Zosyn for coverage of intra-abdominal infection, armani erobes.Monitor clinically. Day #4 postop. Recommend [address] 4. Leukocytosis. Antibiotics as above. Repeat CBC in the morning Closely monitor. 5. Acute kidney injury. Creatinine trending down. Continue with supportive measures. Discussed with Dr. Ghosh Discussed with director case. Coordinate OPAT with DOC. Side effects discussed with the patient in detail. Oracio Conti MD, MPH Infectious Diseases 04/29/2018 mily rees, DELANEY Polk - 04/29/2018 9:45 AM PSTFormatting of this note might be different from t radha original. Progress Notes by DELANEY Cherry at 04/29/18944 Author: DELANEY Cherry Service: General Surgery Author Type: Nurse Pilie romel Filed: 04/29/18946 Date of Service: 04/29/18944 Status: Signed Damper Maker: DELANEY Cherry (Nurse Practitioner) [facility] Service: Colon & Rectal Surgery Progress Note Hospital Day: LOS: 10 days Post-Op Day: 4 Day Post-Op SUBJECTIVE Patient Summary: Total colectomy end ileocolostomy Events Overnight: None acute. Pt is tolerating a FLD without N/V. His ostomy is pas sing gas and liquid stool 450 mls/24 hrs. Deneis chest pain and SOB. Vitals and labs stab le. Scheduled Medications enoxaparin 40 mg Subcutaneous Q24H gabapentin 600 mg Oral BID methocarbamol 750 mg Oral TID metronidazole 500 mg Intravenous Q8H nortriptyline 25 mg Oral Nightly pantoprazole 40 mg Oral BID AC piperacillin-tazobactam 3.375 g 3.375 g Intravenous Q8H predniSONE 10 mg Oral Daily with breakfast sodium chloride 10 mL Intravenous 2 times per day tamsulosin 0.4 mg Oral after dinner vancomycin 500 mg Oral 4 times per day Continuous Infusions lactated ringers 125 mL/hr at 04/29/18 0702 PRN Medications acetaminophen OR acetaminophen, calcium carbonate, diazePAM, melatonin, morphine OR morphine OR morphine, naloxone, nystatin, nystatin, ondansetron OR ondansetron, oxy CODONE OR oxyCODONE OR oxyCODONE, petrolatum, polyethylene glycol, saline lock IV - when tolerating PO fluids AND sodium chloride (PF), sodium chloride 0.9 %, sodium chlori de, zolpidem OBJECTIVE Vital Signs: BP 153/84 (BP Location: Left upper arm) | Pulse 113 | Temp 98.2 F (36.8 C) (Oral) | Resp 16 | Ht 1.803 m (5' 11") | Wt 95 kg (209 lb 6.4 oz) | SpO2 97% | BMI 29.21 kg/m Patient Vitals for the past 24 hrs: BP Temp Temp src Pulse Resp SpO2 04/29/18 0811 153/84 98.2 F (36.8 C) Oral 113 16 97 % 04/29/18 0424 126/79 98.3 F (36.8 C) Oral 81 16 97 % 04/29/18 0010 118/75 98.1 F (36.7 C) Oral 89 16 97 % 04/28/18 1933 126/79 96.9 F (36.1 C) Axillary 106 16 90 % 04/28/18 1604 135/87 98.8 F (37.1 C) Oral 97 16 98 % 04/28/18 1141 140/84 98.7 F (37.1 C) Oral 101 16 97 % Physical Exam Constitutional: He is oriented to person, place, and time. He appears well-developed and we ll-nourished. Cardiovascular: Normal rate. Pulmonary/Chest: Effort normal. Abdomina/Gl: Soft. He exhibits no distension and no mass. There is no tenderness. There is no rebound and no guarding. Neurological: He is alert and oriented to person, place, and time. Skin: Skin is warm and dry. Psychiatric: He has a normal mood and affect. His behavior is normal. Nursing note and vitals reviewed. DATA CBC: Lab Results Component Value Date WBC 13.61 (H) 04/29/2018 RBC 3.24 (L) 04/29/2018 HGB 9.4 (L) 04/29/2018 HCT 28.8 (L) 04/29/2018 MCV 88.9 04/29/2018 MCH 29.0 04/29/2018 MCHC 32.6 04/29/2018 RDW 42.9 04/29/2018 PLT 243 04/29/2018 MPV 7.9 04/29/2018 DIFFTYPE MANUAL 04/29/2018 CMP: Lab Results Component Value Date NA 141 04/29/2018 K 4.0 04/29/2018 CL 106 04/29/2018 CO2 26 04/29/2018 ANIONGAP 13 04/29/2018 GLUF 115 (H) 04/29/2018 BUN 9 04/29/2018 CREATININE 1.0 04/29/2018 BCR 9 04/29/2018 CA 7.8 (L) 04/29/2018 EGFR >60 04/29/2018 Magnesium: Lab Results Component Value Date MG 1.8 04/29/2018 Phosphorus: Lab Results Component Value Date PHOS 4.0 04/29/2018 PROBLEM LIST Principal Problem: Sepsis (HCC) Active Problems: Cervical myelopathy (HCC) S/P laminectomy Infectious colitis ASSESSMENT & PLAN POD # 4 from a Total colectomy end ileocolostomy whose bowel function has returned -Encourage ambulation -General diet ok -Continue IV abx per ID recommendations -Please leave red rubber catheter in place. If red rubber catheter advances out ok to push back in. Do not replace if it completely comes out. A/P discussed with Dr. Cardenas. Disposition: Code Status: Full Code DELANEY CHERRY 04/29/2018 onversion Olson saction, Provider Unknown - 04/29/2018 9:33 AM PSTFormatting of this note might be differen t from the original. Case Management by PARDEEP Serrato at 04/29/18932 Author: PARDEEP Serrato Service: (none) Author Type: Oil Well Service Operator Filed: 04/29/183 Date of Service: 04/29/18932 Status: Addendum Damper Maker: PARDEEP Serrato (Oil Well Service Operator) Related Notes: Original Note by PARDEEP Serrato (Oil Well Service Operator) filed at 04/29/18 1615 04/29/18 09 Discharge Planning Evaluation Admitting Diagnosis Cervical Myelopathy Anticipated Disposition Facility Type Other (Comment) SEPARATOR INSERTER received p/c msg from Sweetie at [facility], requesting our Attending P nathaly Colindres call Dr. Alatorre ([phone] cell) to coordinate care needs at [facility] after this hospitalization. SEPARATOR INSERTER met with Dr. Ghosh anticipates Pt staying the weekend, SEPARATOR INSERTER will follow up on Wednesday. [facility] ([facility]), [address], [place] [address] [facility] number for nurse to nurse report is [phone] / DCP: [facility] ([facility]) - [facility] JANET DOCKERY, Oil Well Service Operator [phone] cell Mundo Peng MD - 04/29/2018 9:07 AM PST Progress Notes by Mundo Ghosh MD at 04/29/18906 Author: Mundo Ghosh MD Service: Hospitalist Author Type: Physician Filed: 04/29/18 1414 Date of Service: 04/29/18906 Status: Signed Damper Maker: Mundo Ghosh MD (Physician) [facility] Service: Hospitalist Progress Note Pt: Matthias Lambert AGE/SEX: 42 y.o. male ROOM: [facility]/91-1 : 1975 PCP: Per PT None ADMIT DATE: 04/19/2018 TODAY'S DATE: 04/29/2018 Hospital Day/Hospital Course: LOS: 10 days Per ICU 42 y.o.malewith a Diagnoses of Cervical radiculopathy at C6, Cervical radiculopathy at C7, and DDD (degenerative disc disease) underwent CERVICAL-LAMINECTOMY POSTERIOR (N/A) - Pos terior Cervical Laminectomy, Foraminotomy five to seven today. Intraoperatively had h some hypotension requiring vasopressin otherwise uncomplicated per r eport. Post op, he was noted to have no movement of right arm or fingers, some muscle twitch ing noted in the forearm. As well severe paresthesias in b/l UE, L>R and from thigh upwards over entire trunk. MRI done emergently showed following findings : There is newly developed T2 signal throughout the cervical cord with fusiform swelling. There appears to be potential susceptibility artifact along the paracentral region of the cord which could reflect some hemorrhage. Differential considerations would include a cord contusion versus possible ADEM in the appropriate clinical context. Given that this does not occur along a typical vascular distribution, cord infarct with subsequent hemorrhage is thought to be unlikely but not excluded. This appears to extend into the thoracic cord and if indicated, further assessment of the thoracic cord could be performed with dedicated MRI. The edema is thought to be acute. Patient is admitted to ICU for serial neuro checks and active management of BP for cord per fusion" ICU Timeline: 04/19/2018: ICU admission secondary to need for serial neuro checks due to acute neuro c hanges and paralysis 04/20: Slight improvement in sensation in LUE; remains flaccid in RUE; LP performed. Stool came back positive for C. difficile and he becomes septic. On April 25 he went to or emergently toxic megacolon with peritonitis and status post Total abdominal colectomy and creation of an end loop ileo-colostomy SUBJECTIVE: Patient seen and examine. Today he said he is having generalized pain. Continue to pass gas and having stool in the bag. Decline to have specifically nausea and vomiting or chest pain . He is not short of breath. Still he cannot move his right hand. He can move his right arm at the shoulder joint. Scheduled Medications: enoxaparin 40 mg Subcutaneous Q24H gabapentin 600 mg Oral BID methocarbamol 750 mg Oral TID metronidazole 500 mg Intravenous Q8H nortriptyline 25 mg Oral Nightly pantoprazole 40 mg Oral BID AC piperacillin-tazobactam 3.375 g 3.375 g Intravenous Q8H predniSONE 10 mg Oral Daily with breakfast sodium chloride 10 mL Intravenous 2 times per day tamsulosin 0.4 mg Oral after dinner vancomycin 500 mg Oral 4 times per day Continuous Infusions lactated ringers 125 mL/hr at 04/29/18 0729 PRN Medications acetaminophen OR acetaminophen, calcium carbonate, diazePAM, melatonin, morphine OR morphine OR morphine, naloxone, nystatin, nystatin, ondansetron OR ondansetron, oxy CODONE OR oxyCODONE OR oxyCODONE, petrolatum, polyethylene glycol, saline lock IV - when tolerating PO fluids AND sodium chloride (PF), sodium chloride 0.9 %, sodium chlori de, zolpidem Allergy: No Known Allergies OBJECTIVE: Vitals: Patient Vitals for the past 24 hrs: BP Temp Temp src Pulse Resp SpO2 04/29/18 0811 153/84 98.2 F (36.8 C) Oral 113 16 97 % 04/29/18 0424 126/79 98.3 F (36.8 C) Oral 81 16 97 % 04/29/18 0010 118/75 98.1 F (36.7 C) Oral 89 16 97 % 04/28/18 1933 126/79 96.9 F (36.1 C) Axillary 106 16 90 % 04/28/18 1604 135/87 98.8 F (37.1 C) Oral 97 16 98 % 04/28/18 1141 140/84 98.7 F (37.1 C) Oral 101 16 97 % I&O Detailed Table: Intake/Output Summary (Last 24 hours) at 04/29/18 0907 Last data filed at 04/29/18 0618 Gross per 24 hour Intake 1877.71 ml Output 7300 ml Net -5422.29 ml No data found. Hemodynamics Last 24hrs: Physical Examination: Constitutional: Talking to me appropriately. Not in any kind of distress HEENT: Neck supple, no JVD, non icteric sclera. Cardiovascular: Normal rate S1, S2 Pulmonary/Chest: Chest clear b/l Abdominal: Abdomen is soft. Tender today at the surgical site Extremeties/Musculoskeletal: Not having any edema. Neurological: Alert and oriented to person, place, and time. Power is 1 out of 5 in the ri ght arm. He can move his arm at the elbow and the right shoulder. He cannot move his right w rist and he cannot move his right hand fingers. Decreased sensation. Power is 5 out of 5 in the left arm and left leg. Skin: Skin is warm and dry. No rash noted. No erythema. No pallor. Psychiatric: Has a normal mood and affect. Behavior is normal. Judgment normal. Not suicida l LABS: Recent Labs Lab 04/29/18 0413 04/28/18 0423 04/27/18 0422 WBC 13.61* 17.99* 31.59* HGB 9.4* 10.2* 13.2 HCT 28.8* 30.5* 40.5 PLT 243 233 276 Recent Labs Lab 04/29/18 0413 04/28/18 0423 04/27/18 042 NA 141 142 142 K 4.0 3.6 4.3 CL 106 108 106 CO2 26 25 25 BUN 9 16 26* CREATININE 1.0 1.15 1.5* Phosphorus: Lab Results Component Value Date PHOS 4.0 04/29/2018 Recent Labs Lab 04/29/18 0413 04/28/18 0423 04/27/18421 MG 1.8 1.8 2.4 Results Procedure Component Value Units Date/Time Anaerobic Culture W/Gram Stain [[id number]] Collected: 04/25/18 1635 Specimen: Abdomen Updated: 04/29/18 0824 Specimen Description ABDOMEN SPECIAL REQUESTS CX AND SENSITIVITY GRAM STAIN 2+ GRAM STAIN WBC'S SEEN GRAM STAIN NO EPITHELIAL CELLS SEEN GRAM STAIN NO ORGANISMS SEEN CULTURE NO GROWTH 4 DAYS Blood Culture Set 1 [[id number]] Collected: 04/23/18 0851 Specimen: Blood from Blood, peripheral draw Updated: 04/29/18 0603 Specimen Description BLOOD, PERIPHERAL DRAW SPECIAL REQUESTS RAC CULTURE NO GROWTH 6 DAYS Blood Culture Set 2 [[id number]] Collected: 04/23/18 0858 Specimen: Blood from Blood, peripheral draw Updated: 04/29/18 0603 Specimen Description BLOOD, PERIPHERAL DRAW SPECIAL REQUESTS LWRIST CULTURE NO GROWTH 6 DAYS Myelin basic protein, CSF [[id number]] (Abnormal) Collected: 04/20/18 1600 Specimen: Cerebrospinal Fluid from Lumbar Puncture Updated: 04/27/18 1316 Myelin Basic Prot, CSF >167.0 (H) ng/mL Diagnostic Imaging: Impressions only: Mri Brain With And Without Contrast Result Date: 04/20/2018 1. No acute infarction, acute intracranial hemorrhage, cerebral edema pathological mass ef fect. 2. Small nonspecific 6 mm FLAIR hyperintense focus in the right posterior pericallosa l region is stable compared to an MRI from 09/14/2016. Given the location this may represent a small demyelinating focus however no other lesions are visualized. Clinical correlation is recommended. Signed by: MD Arin, Nubia Sign Date/Time: 04/20/2018 6:56 AM Mri Cervical Spine Without Contrast Result Date: 04/19/2018 1. Postsurgical changes are noted with anterior cervical fusion from C5 through C7 with dec ompression laminectomies posteriorly. 2. There is newly developed T2 signal throughout the c ervical cord with fusiform swelling. There appears to be potential susceptibility artifact along the paracentral region of the cord which could reflect some hemorrhage. Differential considerations would include a cord contusion versus possible ADEM in the appropriate clinic al context. Given that this does not occur along a typical vascular distribution, cord infar ct with subsequent hemorrhage is thought to be unlikely but not excluded. This appears to e xtend into the thoracic cord and if indicated, further assessment of the thoracic cord could be performed with dedicated MRI. The edema is thought to be acute. 3. There is potential i mpingement of the left C5 and C7 nerve root. 4. Critical result: Imaging findings are discus sed with the ordering provider by telephone at 1:25 p.m.. Signed by: Darryl Pat Sign Da te/Time: 04/19/2018 1:30 PM Mri Thoracic Spine With And Without Contrast Result Date: 04/20/2018 1. The previously visualized abnormal spinal cord edema in the cervical spinal cord is see n extending in the thoracic spinal cord up to the level of T4, below which the cord shows no rmal signal intensity and caliber. This abnormal cord signal appears to be slightly eccentr ic towards the right side and involves the central cord. No abnormal enhancement noted. Sig michelle by: MD Arin, Nubia Sign Date/Time: 04/20/2018 7:02 AM Mra Spine With And Without Contrast Result Date: 04/20/2018 1. There is no enhancement of the cord to suggest active demyelination. Additionally, no en hancement of the cord or surrounding the cord likely excludes a dural AVF and/or AVM of the cord as the etiology of hemorrhage. Differential considerations of etiology of the hemorrha ge within the cord remain unchanged and may possibly include spontaneous hemorrhage versus p ressure gradient differences status post decompression versus underlying bleeding diathesis. Signed by: Darryl Pat Sign Date/Time: 04/20/2018 2:52 PM X-ray C-arm Fluoro Up To 1 Hour Result Date: 04/19/2018 Intraoperative fluoroscopic assessment. Signed by: Jose C Russell Sign Date/Time: 04/19/2018 2 :42 PM PROBLEM LIST Principal Problem: Sepsis (HCC) Active Problems: Cervical myelopathy (HCC) S/P laminectomy Infectious colitis Resolved Problems: * No resolved hospital problems. * ASSESSMENT & PLAN 42 y.o.malewith a Diagnoses of Cervical radiculopathy at C6, Cervical radiculopathy at C7, and DDD (degenerative disc disease) underwent CERVICAL-LAMINECTOMY POSTERIOR (N/A) - Pos terior Cervical Laminectomy, Foraminotomy five to seven today. Intraoperatively had h some hypotension requiring vasopressin otherwise uncomplicated per r eport. Post op, he was noted to have no movement of right arm or fingers, some muscle twitch ing noted in the forearm. Active Problems: Fever with sepsis with infectious colitis due to C. difficile with toxic megacolon and sally tonitis: His white cell count continued to improve. No fever. On April 25, 2011 abdominal distention, fever, tachycardia and hypotension secondary to toxic megacolon. Went to the operating room emergently. SP Total abdominal colectomy and cr eation of an end loop ileo-colostomy with operating finding consistent with toxic megacolon and peritonitis. Fever curve has improved. White cell count is getting better.. Stool is pos itive for C. difficile. CT finding consistent with infectious colitis. GI has already evalua sara the patient. Currently vancomycin day #6 oral also received IV Flagyl that has been disc ontinued. Now on IV Zosyn day #7 he also received rectal vancomycin. His blood pressure has improved. Cervical myelopathy (HCC) S/P laminectomy. Postoperatively he was hypotensive. He was noted to have a weakness on the right arm and finger with muscle twitching. He is moving his right arm at the shoulder j oint and at the elbow. Cannot flex or extend his right wrist. Cannot move his fingers. He sa id he is numb but can have the sensation now. Decreased sensation in the abdominal wall as w ell. More likely related to ADEM versus contusion versus infarct. On 04/25/[address] Subramanian she is not inclined towards demyelinating disease. Blood pressure is better now. Resolved Problems: * No resolved hospital problems. * Patient diagnosed with: , and I agree with the following nutritional recommendations: Recommendations Recommended energy needs: Advance diet once indicated. Boost Kenny ordered TID for pt. Enc ourage pt to consume these. If anticipate prolonged NPO/clear liquids, recommend nutrition s upport as pt has had inadequate PO for 1 week already. MUNDO GHOSH MD, FACP 04/29/2018 9:07 AM Dictation software, Kontagent, used which may contain error for similar sounding words even af ter review. Personal communication requested for any clarification. Portions of this chart may have been copied from previous notes for continuity of care purp ose onversion Transac tion, Provider Unknown - 04/29/2018 6:22 AM PSTFormatting of this note might be different f rom the original. Nurse Progress Note by Kenisha Todd RN at 04/29/18621 Author: Kenisha Todd RN Service: (none) Author Type: Registered Nurse Filed: 04/29/18621 Date of Service: 04/29/18621 Status: Signed Damper Maker: Kenisha Todd RN (Registered Nurse) Prn oxycodone given X2 for pain and valium X2 for muscle spasms. Pt continues to have black type 7 output from ileostomy with frequent gas. Pt states having some relief from bloating. Brown catheter has adequate output. End of shift review complete. Kenihsa Todd onver antonio Transaction, Provider Unknown - 04/28/2018 6:55 PM PST Nurse Progress Note by Queenie Schwartz RN at 04/28/181854 Author: Queenie Schwartz RN Service: (none) Author Type: Registered Nurse Filed: 04/28/181953 Date of Service: 04/28/181854 Status: Signed Damper Maker: Queenie Schwartz RN (Registered Nurse) End of shift chart check complete. QUEENIE SCHWARTZ RN onver antonio Transaction, Provider Unknown - 04/28/2018 4:17 PM PST Therapy Progress Note by DONNA Santoyo at 04/28/181616 Author: DONNA Santoyo Service: (none) Author Type: Occupational Therapy Silvana zeng Filed: 04/28/18 1720 Date of Service: 04/28/181616 Status: Signed Damper Maker: DONNA Santoyo (Digital Proofing And Platemaker) OCCUPATIONAL THERAPY TREATMENT NOTE OT Received On: 04/28/18 Reason for Treatment: Spinal surgery Requires OT Follow Up: Yes Assistance Required: 1 person Printed Circuit Layout Taper Needed: No Family/Caregiver Present: Yes (shelter guards) Recommendation: (continue IRF) Equipment Recommended: (TBD) Requires OT Follow Up: Yes Recommendation Comments Plan Treatment Interventions: (per OT POC) Progress: Progressing toward goals Requires OT Follow Up: Yes Focus for next session: Further clarification of tubi laboratory animal care veterinarian for RUE, donning of shirt, transfers, sensory reintegrat Gilma salgado(RUE) Follow up by: [] OT [] BRIAN [x] Either Precautions Spinal Precautions: Cervical Other Precautions: Fall precautions, flaccid RUE, impulsivity, Ankle shackles Summary pt seated in recliner chair upon ASSIGNMENT CLERK arrival. Agreeable to participate in OT at this time. Emphasis on addressing RUE(subluxation?), precautions while applying during ADL dressing tas ks. Therapist provided pt with clothing requesting to remain in gown for shirt but agreeable for donning of pants. Pt also requesting assistance with washing of hair, see below for ass istance levels/RUE assessment. Pt remained seated in recliner chair, guards present no needs indicated at this time. ADL/IADL Grooming Grooming Level of Assistance: Maximum assistance, Moderate verbal cues Grooming Where Assessed: Other (Comment) (recliner chair) Grooming Comments: pt seated in recliner chair while completing washign of hair. Provided s hower caps. Assisted with placement over hair d/t inc amount. Mod cueing for maintaining of cervical precaution of head straight. Therapist to assist with washing of hair. Pt to not at tempt at this time. Discussed tech for future attempts of bringing LUE arm upright while netta ntaining looking straight forward for precautions. UE Dressing UE Dressing Comments: pt declining to complete UE dressing task at this time reporting felt he was not ready to attempt to complete task at this time. LE Dressing LE Dressing: Yes Pants Level of Assistance: Minimum assistance, Minimal verbal cues Sock Level of Assistance: Dependent LE Dressing Where Assessed: Other (Comment) (recliner chair) LE Dressing Comments: pt demonstrating good flexibility with hips bringing one LE upright w hile threading through pant leg utilizing LUE. Pt to complete STS with SBA but then demonstr ated x1 LOB while standing after pulling pant over hips. Therapist to assist with fastening of pants d/t hemiparesis with RUE. May benefit from elastic waist band pants to eliminate as sistance level with fastening. Mod cueing for maintaining upright posture and prevention of bending forward. Did not demonstrate ability to bringing 1 LE to opp knee to krystina of socks. Therapeutic exercise - strength Manual Therapy Other Manual Therapy: Therapist to assist R subluxation concern per other therapist. Noted at this time to not have subluxation. Symmetrical with LUE, more so noted possible atrophy w ithin UE musculature structure. Discussed preventative measure of compeltion of mconnel tapi ng, pt reporting requesting to hold off at this time until noted to have concern. Although noted inc edema within RUE forearm and upper arm(Bicep), discussed completion of light grade massage while supine in bed to assist with edema management. Further discussion with RN for possible use of tubi laboratory animal care veterinarian to assist with edema. Will benefit from follow up for appropriate ness. Safety Devices in Place: Yes Type of Devices: Call lite in place, RN notified (shelter guards present) Barriers to d/c at this time include: [] Home environment [] Family support [] Equipment needs [] Cognitive deficits impacting functional independence [] Physical deficits impacting functional independence [] Self-care deficits impacting functional independence [] Other Pain The patient did not demonstrate any signs of symptoms of pain throughout OT session Education Completed: [] Role of OT [] Walker safety with ADLs and functional transfers [] Fall prevention [] Home modifications [] Adaptive equipment training and recommendations [] Functional transfer training [x] Current level of assist and compensatory techniques for increased independence [] Discharge recommendations for ADL/IADL participation [] Sternal Precautions during ADL [] Back Precautions during ADL [] Hip Precautions ADLs [] Upper extremity exercise program [x] Other RUE subluxation assessment, Completed with: [x] Patient [] Spouse [] Significant other [] Family [] C aregiver [] Other Completed by: [x] Verbal education [] Demonstration [] Handout [] Other: Response to Education: [x] Stated Understanding [] Reinforcement necessary [x] Returned demonstration [] Demonstrated understanding [] No evidence of learning [] Refused Reviewed plan of care and goals set by OTR/L. onver antonio Transaction, Provider Unknown - 04/28/2018 2:40 PM PST Therapy Progress Note by David Arnold PT at 04/28/18 1442 Author: David Arnold PT Service: (none) Author Type: Physical Therapist Filed: 04/28/18 0110 Date of Service: 04/28/181439 Status: Signed Damper Maker: David Arnold PT (Physical Therapist) PHYSICAL THERAPY TREATMENT NOTE PT Received On: 04/28/18 Reason for Treatment: Spinal surgery (cervical laminectomy and foraminotomy; colectomy) Requires PT Follow Up: Yes Recommendations: Prior Setting, OP PT (with therapy services at [facility]) PT Ready for Discharge: Yes Plan Treatment/Interventions: Continue per Primary PT POC Progress: Progressing toward goals Summary Comments: Patient in bed upon PT arrival; guards present throughout session. Pt is eager an d motivated to participation. Pt presents with notably elevated humerus. With gross movement s at the R glenuohumeral joint, the humerus demonstrates excessive anterior translation. He demonstrates subtle improvements to R shoulder proximal strength, with internal rotation at 2/5, external rotation at 2-/5, and gross shoulder elevation in scaption at 2/5 to 2-/5. Tra ce elbow flexion/extension is present. No active movements at the fingers/wrist at this time . Pt completing multiple repetitions and with increased mass practice did demonstrate subtle improvements with motor control of the muscle groups that he has active movement over proxi estelle. Sling donned for upright activity. Pt receptive to safety positioning for the cervica l incision. Of note, the cervical incision does appear to have a small amount of exudate at the distal border of the incision. May benefit from further assessment from MD/wound care. P t's ostomy with a noted leak as well, RN aware and addressing. He is eager to mobilize and a greeable to sitting up. Gait and mobility is slow and cautious but with improving stability and tolerance from previous day. Pt able to complete 2 bouts of mobility in room, does not n eed an AD for balance but does benefit from close SBA to CGA for steadying for safety and fo r line management. He is in the recliner after activity, all needs met. Discussed care with OT about addressing R shoulder function. Vitals at rest in supine: HR 105, BP 140/84, Spo2 . Pain is controlled fairly Precautions Spinal Precautions: Cervical Other Precautions: Fall precautions, flaccid RUE, impulsivity, Ankle shackles Cognition Overall Cognitive Status: Within Functional Limits Orientation Level: Oriented Oriented: x 4 FUNCTIONAL MOBILITY Bed Mobility Rolling: Minimal assist Supine to Sit: Min assist (1 LE OOB) Scooting : Standby assist - Transfers Sit to/from Stand: Minimal assist (steadying/contact guard) Ambulation Maximal Ambulation Distance (feet): 60 Total Ambulation Distance (feet): 60 Ambulation Assistance: Minimal assist Distance limited by?: Therapist/staff discretion Pattern: Decreased yanick, Right swing foot doesn't pass stance foot, Left swing foot does n't pass stance foot Assistive Device: None THERAPEUTIC EXERCISE Therapeutic Exercises: PROM Right, AAROM Right PROM Right: Entire UE PROM Comments: 20x2 for all joints in RUE progressing through each range AAROM Right: Shoulder, Elbow AAROM Comments: 10x2 with tactile and verbal guided imagery for facilitation Activity Tolerance: Patient tolerated treatment without report of fatigue Nurse Made Aware: RAFIA Jerome Safety Devices in Place: (Needs met; Rn present) Restraints Initially in Place: (Guards present) The patient reported pain rated at a 6/10. RN was notified (Queenie present and premedica sara prior). Other measures provided to relieve pts pain included: Rest/repositioning of limb for comfort/safety. Education Completed: Education Topics: [x] Rationale for PT [x] PT POC [x] DC planning [x] Precautions [x] Exercises [x] Bed mobility [x] Transfer training with hand placement [x] Gait training [] Stair training [] Use of gait belt [] Other Completed with: [x] Patient [x] Spouse [] Significant other [] Family [] Caregiver [] Other Completed by: [x] Verbal education [x] Demonstration [] Handout [] Other: Response to Education: [x] Stated Understanding [] Reinforcement necessary [x] Returned demonstration [] Demonstrated understanding [] No evidence of learning [] Refused PT Goals Pt Will Go Supine To Sit: Independently Pt Will Go Sit To Supine: Independently Pt Will Transfer Sit to Stand: Independently Pt Will Ambulate: greater than 500 feet Ambulate Level Assist: With supervision Pt Will Go Up / Down Stairs: 1 flight Stairs Level of Assist: With supervision Reflects last filed data of patient's status; may be from multiple contributors teele , Abhay Johnson MD - 04/28/2018 11:42 AM PSTFormatting of this note might be different from th e original. Progress Notes by Abhay An MD at 04/28/18 1142 Author: Abhay An MD Service: Neurosurgery Author Type: Physician Filed: 04/28/18 1420 Date of Service: 04/28/18 114 Status: Signed Damper Maker: Abhay An MD (Physician) [facility] Service: Neurosurgery Progress Note Hospital Day: LOS: 9 days Post-Op Day: 3 Days Post-Op SUBJECTIVE Patient Summary: 42y/o male who underwent an elective C5-7 posterior laminectomy on 04/19/2018, complicated b y intra-operative hypotension. Patient hemiplegic upon awakening. 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 +C diff. Events Overnight: The patient states he would like to receive oxycodone 15 mg Q 4 hours for his incisional pa in. He states his LUE and BLE strength feel "fine". He is concerned with the ongoing RUE sever e weakness. Scheduled Medications enoxaparin 40 mg Subcutaneous Q24H gabapentin 600 mg Oral BID lidocaine buffered 0.5 mL Intradermal Once methocarbamol 750 mg Oral TID metronidazole 500 mg Intravenous Q8H nortriptyline 25 mg Oral Nightly pantoprazole 40 mg Oral BID AC piperacillin-tazobactam 3.375 g 3.375 g Intravenous Q8H predniSONE 10 mg Oral Daily with breakfast sodium chloride 10 mL Intravenous 2 times per day tamsulosin 0.4 mg Oral after dinner vancomycin 500 mg Oral 4 times per day Continuous Infusions lactated ringers 150 mL/hr at 04/28/18 0252 PRN Medications acetaminophen OR acetaminophen, calcium carbonate, diazePAM, melatonin, morphine OR morphine OR morphine, naloxone, nystatin, nystatin, ondansetron OR ondansetron, oxy CODONE OR oxyCODONE OR oxyCODONE, petrolatum, polyethylene glycol, saline lock IV - when tolerating PO fluids AND sodium chloride (PF), sodium chloride 0.9 %, sodium chlori de, zolpidem OBJECTIVE Vital Signs: BP 140/84 (BP Location: Left upper arm) | Pulse 101 | Temp 98.7 F (37.1 C) (Oral) | Resp 16 | Ht 1.803 m (5' 11") | Wt 95 kg (209 lb 6.4 oz) | SpO2 97% | BMI 29.21 kg/m EXAM: Awake, alert. Speech fluent. Posterior cervical incision CDI. DATA PROBLEM LIST Principal Problem: Sepsis (HCC) Active Problems: Cervical myelopathy (HCC) S/P laminectomy Infectious colitis ASSESSMENT & PLAN Continue current care. Continue pain medications. OT has been seeing the patient. Disposition: Code Status: Full Code ABHAY AN MD 04/28/2018 Sherrell Baker se, MD - 04/28/2018 11:30 AM PST Progress Notes by Oracio Villaseñor MD at 04/28/18 1130 Author: Oracio Villaseñor MD Service: Infectious Disease Author Type: Physic ruthy Filed: 04/28/18 3147 Date of Service: 04/28/18 1130 Status: Signed Damper Maker: Oracio Villaseñor MD (Physician) [facility] Service: Infectious Diseases Progress Note Hospital Day: LOS: 9 days Post-Op Day: 3 Days Post-Op CC: Follow up on toxic megacolon, peritonitis. SUBJECTIVE/OVERNIGHT EVENTS Patient doing better today. He is still having hard time retaining the rectal enema of vanc omycin. A cath was placed in the ostomy for administration of vancomycin in the rectosigmoid colon. Pt is also having serious iv access issues. Afebrile and WBC down today. REVIEW OF SYSTEMS Constitutional: denies fever and chills and Integumentary: denies skin rash MEDICATIONS: enoxaparin 40 mg Subcutaneous Q24H gabapentin 600 mg Oral BID lidocaine buffered 0.5 mL Intradermal Once methocarbamol 750 mg Oral TID metronidazole 500 mg Intravenous Q8H nortriptyline 25 mg Oral Nightly pantoprazole 40 mg Oral BID AC piperacillin-tazobactam 3.375 g 3.375 g Intravenous Q8H predniSONE 10 mg Oral Daily with breakfast sodium chloride 10 mL Intravenous 2 times per day tamsulosin 0.4 mg Oral after dinner vancomycin 500 mg Oral 4 times per day vancomycin (VANCOCIN) rectal enema 125 mg Rectal Q6H lactated ringers 150 mL/hr at 04/28/18 0252 PRN Medications acetaminophen OR acetaminophen, calcium carbonate, diazePAM, melatonin, morphine OR morphine OR morphine, naloxone, nystatin, nystatin, ondansetron OR ondansetron, oxy CODONE OR oxyCODONE OR oxyCODONE, petrolatum, polyethylene glycol, saline lock IV - when tolerating PO fluids AND sodium chloride (PF), sodium chloride 0.9 %, sodium chlori de, zolpidem PHYSICAL EXAM Vital Signs: BP 138/85 (BP Location: Left upper arm) | Pulse 116 | Temp 98.4 F (36.9 C) (Oral) | Resp 17 | Ht 1.803 m (5' 11") | Wt 95 kg (209 lb 6.4 oz) | SpO2 98% | BMI 29.21 kg/m Temp (24hrs), Av.9 F (37.2 C), Min:98.4 F (36.9 C), Max:99.6 F (37.6 C) General Appearance: Alert, cooperative, no distress. Head: Normocephalic, without obvious abnormality, atraumatic. Lips, mucosa, and tongue normal; dentition normal; no thrush present. Eyes: PERRL, conjunctiva/corneas clear, EOM's intact. Throat: Oropharynx without exudates. Neck: Supple, symmetrical, trachea midline, no adenopathy; thyroid: no enlargement/tenderness/nodules; no carotid bruit or JVD Back: Symmetric, no curvature, ROM normal, no CVA tenderness Lungs: Clear to auscultation bilaterally, respirations unlabored Chest Wall: No tenderness or deformity Heart: Regular rate and rhythm, S1 and S2 normal, no murmur noted, no rub or gallop Abdomen: slightly Distended, painful to palpation, bowel sounds hypoactive all four qu adrants, no masses, no organomegaly, exploratory laparotomy wound, ostomy with ostomy bag an d some small amount of serosanguineous fluid. Extremities: Extremities normal, atraumatic, no cyanosis or edema Pulses: 2+ and symmetric all extremities Skin: Skin color, texture, turgor normal, no rashes or lesions Lymph nodes: Cervical, supraclavicular, and axillary nodes normal Neurologic: alert and rate at 3. Flaccid right arm. Venous access: PIV No signs of infection. LABS: All labs reviewed. CBC: Lab Results Component Value Date WBC 17.99 (H) 04/28/2018 RBC 3.52 (L) 04/28/2018 HGB 10.2 (L) 04/28/2018 HCT 30.5 (L) 04/28/2018 MCV 86.8 04/28/2018 MCH 28.9 04/28/2018 MCHC 33.3 04/28/2018 RDW 41.6 04/28/2018 PLT 233 04/28/2018 MPV 7.5 04/28/2018 DIFFTYPE MANUAL 04/28/2018 CMP: Lab Results Component Value Date NA 142 04/28/2018 K 3.6 04/28/2018 CL 108 04/28/2018 CO2 25 04/28/2018 ANIONGAP 13 04/28/2018 GLUF 124 (H) 04/28/2018 BUN 16 04/28/2018 CREATININE 1.15 04/28/2018 BCR 14 04/28/2018 CA 7.1 (L) 04/28/2018 EGFR >60 04/28/2018 MICROBIOLOGY Results Procedure Component Value Units Date/Time Anaerobic Culture W/Gram Stain [[id number]] Collected: 04/25/18 1635 Specimen: Abdomen Updated: 04/28/18 0704 Specimen Description ABDOMEN SPECIAL REQUESTS CX AND SENSITIVITY GRAM STAIN 2+ GRAM STAIN WBC'S SEEN GRAM STAIN NO EPITHELIAL CELLS SEEN GRAM STAIN NO ORGANISMS SEEN CULTURE NO GROWTH 3 DAYS Myelin basic protein, CSF [[id number]] (Abnormal) Collected: 04/20/18 1600 Specimen: Cerebrospinal Fluid from Lumbar Puncture Updated: 04/27/18 1316 Myelin Basic Prot, CSF >167.0 (H) ng/mL HSV 1/2 detect/diff by rtpcr : for antigen testing on CSF, newborns & immuno-compromised. [[id number]] Collected: 04/20/18 1600 Specimen: Cerebrospinal Fluid from CSF Updated: 04/25/18 2107 SOURCE CEREBROSPINAL FLUID HSV DNA Type 1 Negative HSV DNA Type 2 Negative VDRL, CSF [[id number]] Collected: 04/20/18 1600 Specimen: Cerebrospinal Fluid from Lumbar Puncture Updated: 04/25/18 1210 VDRL Quant, CSF Non Reactive IMAGING Reviewed images of : No new images for review ASSESSMENT & PLAN The patient is a 42 y.o.-year-old male with the following problems: Principal Problem: Sepsis (HCC) Active Problems: Cervical myelopathy (HCC) S/P laminectomy Infectious colitis 1. Severe sepsis with encephalopathy. Encephalopathy has resolved now. 2. Severe C diff infection/colitis, toxic megacolonstatus post total colectomy on 9. A segment of the rectosigmoid colon remains for which the patient will use vancomycin admin istered via ostomy catheter placed by CRS. PT was loosing all the enema. High dose vanco and iv flagyl for now. Complex case that needs both C diff treatment and concomitant systemic antibiotic therapy. 3. Purulent peritonitis. No evidence of perforation. Possibly translocation due to severe c olitis. Continue with with intravenous Zosyn for coverage of intra-abdominal infection, servando varela.Monitor clinically. Day #3 postop. 4. Leukocytosis. Antibiotics as above. Repeat CBC in the morning Closely monitor. 5. Acute kidney injury. Creatinine trending down. Continue with supportive measures. Discussed with Dr. Ghosh and Dr. Cardenas. Oracio Conti MD, MPH Infectious Diseases 04/28/2018 onvers ion Transaction, Provider Unknown - 04/28/2018 11:03 AM PST Progress Notes by Era Campos RN at 04/28/18 1103 Author: Era aCmpos RN Service: Wound/Ostomy Care Author Type: Registered Nurse Filed: 04/28/18 1116 Date of Service: 04/28/181102 Status: Signed Damper Maker: Era Campos RN (Registered Nurse) [facility] Service: Ostomy Care Consult Note Hospital Day: LOS: 9 days Post-Op Day: 3 Days Post-Op SUBJECTIVE Patient Summary: Total abdominal colectomy and creation of an end loop ileo-colostomy , HX toxic kar-colon Events Overnight: Producing liquid brown stool, red rubber cath in place to ostomy at this time. OBJECTIVE Ostomy Type: Ileostomy Ostomy Size: 38mm Lumen Position: medial, drains towards 6 o'clock, red rubber catheter in place at this time for ABX instill per RN. Stoma: Datil, moist, well budded Sally-stomal: Clean, dry, intact Current Appliance: 2 piece 70mm convatec appliance PROBLEM LIST Principal Problem: Sepsis (HCC) Active Problems: Cervical myelopathy (HCC) S/P laminectomy Infectious colitis ASSESSMENT & PLAN Paperwork for doctor to sign on chart; Basic anatomy and colostomy role discussed as well a s appliance change, emptying and skin care. Appliance was leaking on arrival at 6 o'clock, so appliance change completed for pt today. Pt continues to have right arm deficits and is unable to use right arm at this time. This wi ll make emptying pouch difficult and changing pouch very difficult for this pt without help. Pt will need supplies ordered thru the [facility]. Guards in room stated that this would be ordere d thru [facility] for EOC. They did not have this number at this time. air and hydronic balancing technician will follow up in 2 days for follow up on pouching and supplies for DC. Thank you for allowing me to participate in the care of this patient. I have discussed my recommendations with the attending physician. I will continue to follow with you. Era Campos RN [facility] 04/28/2018 Mundo Peng MD - 04/28/2018 8:56 AM PST Progress Notes by Mundo Ghosh MD at 04/28/18855 Author: Mundo Ghosh MD Service: Hospitalist Author Type: Physician Filed: 04/28/18 1210 Date of Service: 04/28/1856 Status: Signed Damper Maker: Mundo Ghosh MD (Physician) [facility] Service: Hospitalist Progress Note Pt: Matthias Lambert AGE/SEX: 42 y.o. male ROOM: [address] [place] [address] : 1975 PCP: Per PT None ADMIT DATE: 04/19/2018 TODAY'S DATE: 04/28/2018 Hospital Day/Hospital Course: LOS: 9 days Per ICU 42 y.o.malewith a Diagnoses of Cervical radiculopathy at C6, Cervical radiculopathy at C7, and DDD (degenerative disc disease) underwent CERVICAL-LAMINECTOMY POSTERIOR (N/A) - Pos terior Cervical Laminectomy, Foraminotomy five to seven today. Intraoperatively had h some hypotension requiring vasopressin otherwise uncomplicated per r eport. Post op, he was noted to have no movement of right arm or fingers, some muscle twitch ing noted in the forearm. As well severe paresthesias in b/l UE, L>R and from thigh upwards over entire trunk. MRI done emergently showed following findings : There is newly developed T2 signal throughout the cervical cord with fusiform swelling. There appears to be potential susceptibility artifact along the paracentral region of the cord which could reflect some hemorrhage. Differential considerations would include a cord contusion versus possible ADEM in the appropriate clinical context. Given that this does not occur along a typical vascular distribution, cord infarct with subsequent hemorrhage is thought to be unlikely but not excluded. This appears to extend into the thoracic cord and if indicated, further assessment of the thoracic cord could be performed with dedicated MRI. The edema is thought to be acute. Patient is admitted to ICU for serial neuro checks and active management of BP for cord per fusion" ICU Timeline: 04/19/2018: ICU admission secondary to need for serial neuro checks due to acute neuro c hanges and paralysis 04/20: Slight improvement in sensation in LUE; remains flaccid in RUE; LP performed. Stool came back positive for C. difficile and he becomes septic. On April 25 he went to or emergently toxic megacolon with peritonitis and status post Total abdominal colectomy and creation of an end loop ileo-colostomy SUBJECTIVE: Patient seen and examine. He continues to feel better. There is a liquid stool in the bag. He is SP Total abdominal colectomy and creation of an end loop ileo-colostomy. He is feeling much better today. Fever curve has improved. Abdominal pain is improved. Continue to have a weakness in the right arm. Still having a numbness. Can Not move his right arm at the wris t and fingers. He can move his arm at the elbow and shoulder joint. He is moving his right l eg. Scheduled Medications: enoxaparin 40 mg Subcutaneous Q24H gabapentin 600 mg Oral BID methocarbamol 750 mg Oral TID metronidazole 500 mg Intravenous Q8H nortriptyline 25 mg Oral Nightly pantoprazole 40 mg Oral BID AC piperacillin-tazobactam 3.375 g 3.375 g Intravenous Q8H predniSONE 10 mg Oral Daily with breakfast tamsulosin 0.4 mg Oral after dinner vancomycin 500 mg Oral 4 times per day vancomycin (VANCOCIN) rectal enema 125 mg Rectal Q6H Continuous Infusions lactated ringers 150 mL/hr at 04/28/18 0252 PRN Medications acetaminophen OR acetaminophen, calcium carbonate, diazePAM, melatonin, morphine OR morphine OR morphine, naloxone, nystatin, nystatin, ondansetron OR ondansetron, oxy CODONE OR oxyCODONE OR oxyCODONE, petrolatum, polyethylene glycol, saline lock IV - when tolerating PO fluids AND sodium chloride (PF), sodium chloride 0.9 %, zolpidem Allergy: No Known Allergies OBJECTIVE: Vitals: Patient Vitals for the past 24 hrs: BP Temp Temp src Pulse Resp SpO2 04/28/18 0731 138/85 98.4 F (36.9 C) Oral 116 17 98 % 04/28/18 0247 137/82 98.7 F (37.1 C) Oral 105 18 100 % 04/27/18 2344 120/69 99.2 F (37.3 C) Oral 123 18 93 % 04/27/18 1917 131/85 99.6 F (37.6 C) Oral 123 18 98 % 04/27/18 1621 126/76 98.9 F (37.2 C) Oral 112 18 96 % 04/27/18 1125 128/75 98.9 F (37.2 C) Oral 133 19 95 % I&O Detailed Table: Intake/Output Summary (Last 24 hours) at 04/28/18 0856 Last data filed at 04/28/18 0626 Gross per 24 hour Intake 1650 ml Output 4850 ml Net -3200 ml Patient Vitals for the past 96 hrs: Weight 04/25/18 0350 95 kg (209 lb 6.4 oz) Hemodynamics Last 24hrs: Physical Examination: Constitutional: He is awake and alert and talking to me appropriately. He is not in any kin d of distress. HEENT: Neck supple, no JVD, non icteric sclera. Cardiovascular: Normal rate S1, S2 Pulmonary/Chest: Chest clear b/l Abdominal: Abdomen is soft. Tender today at the surgical site Extremeties/Musculoskeletal: Not having any edema. Neurological: Alert and oriented to person, place, and time. Power is 1 out of 5 in the ri ght arm. He can move his arm at the elbow and the right shoulder. He cannot move his right w rist and he cannot move his right hand fingers. Decreased sensation. Power is 5 out of 5 in the left arm and left leg. Skin: Skin is warm and dry. No rash noted. No erythema. No pallor. Psychiatric: Has a normal mood and affect. Behavior is normal. Judgment normal. Not suicida l LABS: Recent Labs Lab 04/28/1842204/27/18 0422 04/26/18 0401 WBC 17.99* 31.59* 23.73* HGB 10.2* 13.2 13.6 HCT 30.5* 40.5 42.1 PLT 233 276 239 Recent Labs Lab 04/28/1842204/27/18 0422 04/26/18 0401 NA 142 142 138 K 3.6 4.3 4.8 CL 108 106 108 CO2 25 25 19* BUN 16 26* 34* CREATININE 1.15 1.5* 1.8* Phosphorus: Lab Results Component Value Date PHOS 2.8 04/28/2018 Recent Labs Lab 04/28/18 0423 04/27/18 0422 04/26/18 0401 MG 1.8 2.4 2.6* Results Procedure Component Value Units Date/Time Anaerobic Culture W/Gram Stain [[id number]] Collected: 04/25/18 1635 Specimen: Abdomen Updated: 04/28/18 0704 Specimen Description ABDOMEN SPECIAL REQUESTS CX AND SENSITIVITY GRAM STAIN 2+ GRAM STAIN WBC'S SEEN GRAM STAIN NO EPITHELIAL CELLS SEEN GRAM STAIN NO ORGANISMS SEEN CULTURE NO GROWTH 3 DAYS Myelin basic protein, CSF [[id number]] (Abnormal) Collected: 04/20/18 1600 Specimen: Cerebrospinal Fluid from Lumbar Puncture Updated: 04/27/18 1316 Myelin Basic Prot, CSF >167.0 (H) ng/mL HSV 1/2 detect/diff by rtpcr : for antigen testing on CSF, newborns & immuno-compromised. [[id number]] Collected: 04/20/18 1600 Specimen: Cerebrospinal Fluid from CSF Updated: 04/25/18 2107 SOURCE CEREBROSPINAL FLUID HSV DNA Type 1 Negative HSV DNA Type 2 Negative VDRL, CSF [[id number]] Collected: 04/20/18 1600 Specimen: Cerebrospinal Fluid from Lumbar Puncture Updated: 04/25/18 1210 VDRL Quant, CSF Non Reactive Diagnostic Imaging: Impressions only: Mri Brain With And Without Contrast Result Date: 04/20/2018 1. No acute infarction, acute intracranial hemorrhage, cerebral edema pathological mass ef fect. 2. Small nonspecific 6 mm FLAIR hyperintense focus in the right posterior pericallosa l region is stable compared to an MRI from 09/14/2016. Given the location this may represent a small demyelinating focus however no other lesions are visualized. Clinical correlation is recommended. Signed by: MD Arin, Nubia Sign Date/Time: 04/20/2018 6:56 AM Mri Cervical Spine Without Contrast Result Date: 04/19/2018 1. Postsurgical changes are noted with anterior cervical fusion from C5 through C7 with dec ompression laminectomies posteriorly. 2. There is newly developed T2 signal throughout the c ervical cord with fusiform swelling. There appears to be potential susceptibility artifact along the paracentral region of the cord which could reflect some hemorrhage. Differential considerations would include a cord contusion versus possible ADEM in the appropriate clinic al context. Given that this does not occur along a typical vascular distribution, cord infar ct with subsequent hemorrhage is thought to be unlikely but not excluded. This appears to e xtend into the thoracic cord and if indicated, further assessment of the thoracic cord could be performed with dedicated MRI. The edema is thought to be acute. 3. There is potential i mpingement of the left C5 and C7 nerve root. 4. Critical result: Imaging findings are discus sed with the ordering provider by telephone at 1:25 p.m.. Signed by: Darryl Pat Sign Da te/Time: 04/19/2018 1:30 PM Mri Thoracic Spine With And Without Contrast Result Date: 04/20/2018 1. The previously visualized abnormal spinal cord edema in the cervical spinal cord is see n extending in the thoracic spinal cord up to the level of T4, below which the cord shows no rmal signal intensity and caliber. This abnormal cord signal appears to be slightly eccentr ic towards the right side and involves the central cord. No abnormal enhancement noted. Sig michelle by: MD Arin, Nubia Sign Date/Time: 04/20/2018 7:02 AM Mra Spine With And Without Contrast Result Date: 04/20/2018 1. There is no enhancement of the cord to suggest active demyelination. Additionally, no en hancement of the cord or surrounding the cord likely excludes a dural AVF and/or AVM of the cord as the etiology of hemorrhage. Differential considerations of etiology of the hemorrha ge within the cord remain unchanged and may possibly include spontaneous hemorrhage versus p ressure gradient differences status post decompression versus underlying bleeding diathesis. Signed by: Darryl Pat Sign Date/Time: 04/20/2018 2:52 PM X-ray C-arm Fluoro Up To 1 Hour Result Date: 04/19/2018 Intraoperative fluoroscopic assessment. Signed by: Jose C Russell Sign Date/Time: 04/19/2018 2 :42 PM PROBLEM LIST Principal Problem: Sepsis (HCC) Active Problems: Cervical myelopathy (HCC) S/P laminectomy Infectious colitis Resolved Problems: * No resolved hospital problems. * ASSESSMENT & PLAN 42 y.o.malewith a Diagnoses of Cervical radiculopathy at C6, Cervical radiculopathy at C7, and DDD (degenerative disc disease) underwent CERVICAL-LAMINECTOMY POSTERIOR (N/A) - Pos terior Cervical Laminectomy, Foraminotomy five to seven today. Intraoperatively had h some hypotension requiring vasopressin otherwise uncomplicated per r eport. Post op, he was noted to have no movement of right arm or fingers, some muscle twitch ing noted in the forearm. Active Problems: Fever with sepsis with infectious colitis due to C. difficile with toxic megacolon and sally tonitis: His white cell count has significantly improved. He said he is feeling 100 percent better. On April 25, 2011 abdominal distention, fever, tachycardia and hypotension secondary to toxic megacolon. Went to the operating room emergently. SP Total abdominal colectomy and cr eation of an end loop ileo-colostomy with operating finding consistent with toxic megacolon and peritonitis. Fever curve has improved. White cell count is getting better.. Stool is pos itive for C. difficile. CT finding consistent with infectious colitis. GI has already evalua sara the patient. I still Recommend infectious diseases consultation. Currently vancomycin d ay #5 oral also received IV Flagyl that has been discontinued. Now on IV Zosyn day #6 he als o received rectal vancomycin. His blood pressure has improved. Cervical myelopathy (HCC) S/P laminectomy. Postoperatively he was hypotensive. He was noted to have a weakness on the right arm and finger with muscle twitching. He is moving his right arm at the shoulder j oint and at the elbow. Cannot flex or extend his right wrist. Cannot move his fingers. He sa id he is numb but can have the sensation now. Decreased sensation in the abdominal wall as w ell. More likely related to ADEM versus contusion versus infarct. On 04/25/[address] Subramanian she is not inclined towards demyelinating disease. Blood pressure is better now. Resolved Problems: * No resolved hospital problems. * Patient diagnosed with: , and I agree with the following nutritional recommendations: Recommendations Recommended energy needs: Advance diet once indicated. Boost Brevandanae ordered TID for pt. Enc ourage pt to consume these. If anticipate prolonged NPO/clear liquids, recommend nutrition s upport as pt has had inadequate PO for 1 week already. MUNDO GHOSH MD, FACP 04/28/2018 8:56 AM Dictation software, K[employer], used which may contain error for similar sounding words even af ter review. Personal communication requested for any clarification. Portions of this chart may have been copied from previous notes for continuity of care purp ose am Kitchen ARNP - 04/28/2018 8:52 AM PST . Progress Notes by DELANEY Cherry at 04/28/1852 Author: DELANEY Cherry Service: General Surgery Author Type: Nurse Pilie romel Filed: 04/28/18 1229 Date of Service: 04/28/18851 Status: Signed Damper Maker: DELANEY Cherry (Nurse Practitioner) [facility] Service: Colon & Rectal Surgery Progress Note Hospital Day: LOS: 9 days Post-Op Day: 3 Day Post-Op SUBJECTIVE Patient Summary: Total colectomy end ileocolostomy Events Overnight: None acute. Pt is tolerating a FLD without N/V. Only taking in sm all amounts. C/O GERD sympotms. His ostomy is passing gas and small amount of liquid stoo l. Deneis chest pain and SOB. Abdominal pain at the incision is improving. Ambulatory. V itals and labs stable. Scheduled Medications enoxaparin 40 mg Subcutaneous Q24H gabapentin 600 mg Oral BID methocarbamol 750 mg Oral TID metronidazole 500 mg Intravenous Q8H nortriptyline 25 mg Oral Nightly pantoprazole 40 mg Oral BID AC piperacillin-tazobactam 3.375 g 3.375 g Intravenous Q8H predniSONE 10 mg Oral Daily with breakfast tamsulosin 0.4 mg Oral after dinner vancomycin 500 mg Oral 4 times per day vancomycin (VANCOCIN) rectal enema 125 mg Rectal Q6H Continuous Infusions lactated ringers 150 mL/hr at 04/28/18 0252 PRN Medications acetaminophen OR acetaminophen, calcium carbonate, diazePAM, melatonin, morphine OR morphine OR morphine, naloxone, nystatin, nystatin, ondansetron OR ondansetron, oxy CODONE OR oxyCODONE OR oxyCODONE, petrolatum, polyethylene glycol, saline lock IV - when tolerating PO fluids AND sodium chloride (PF), sodium chloride 0.9 %, zolpidem OBJECTIVE Vital Signs: BP 138/85 (BP Location: Left upper arm) | Pulse 116 | Temp 98.4 F (36.9 C) (Oral) | Resp 17 | Ht 1.803 m (5' 11") | Wt 95 kg (209 lb 6.4 oz) | SpO2 98% | BMI 29.21 kg/m Patient Vitals for the past 24 hrs: BP Temp Temp src Pulse Resp SpO2 04/28/18 0731 138/85 98.4 F (36.9 C) Oral 116 17 98 % 04/28/18 0247 137/82 98.7 F (37.1 C) Oral 105 18 100 % 04/27/18 2344 120/69 99.2 F (37.3 C) Oral 123 18 93 % 04/27/18 1917 131/85 99.6 F (37.6 C) Oral 123 18 98 % 04/27/18 1621 126/76 98.9 F (37.2 C) Oral 112 18 96 % 04/27/18 1125 128/75 98.9 F (37.2 C) Oral 133 19 95 % Physical Exam Constitutional: He is oriented to person, place, and time. He appears well-developed and we ll-nourished. Cardiovascular: Normal rate. Pulmonary/Chest: Effort normal. Abdomina/Gl: Soft. He exhibits no distension and no mass. There is no tenderness. There is no rebound and no guarding. Neurological: He is alert and oriented to person, place, and time. Skin: Skin is warm and dry. Psychiatric: He has a normal mood and affect. His behavior is normal. Nursing note and vitals reviewed. DATA CBC: Lab Results Component Value Date WBC 17.99 (H) 04/28/2018 RBC 3.52 (L) 04/28/2018 HGB 10.2 (L) 04/28/2018 HCT 30.5 (L) 04/28/2018 MCV 86.8 04/28/2018 MCH 28.9 04/28/2018 MCHC 33.3 04/28/2018 RDW 41.6 04/28/2018 PLT 233 04/28/2018 MPV 7.5 04/28/2018 DIFFTYPE MANUAL 04/28/2018 CMP: Lab Results Component Value Date NA 142 04/28/2018 K 3.6 04/28/2018 CL 108 04/28/2018 CO2 25 04/28/2018 ANIONGAP 13 04/28/2018 GLUF 124 (H) 04/28/2018 BUN 16 04/28/2018 CREATININE 1.15 04/28/2018 BCR 14 04/28/2018 CA 7.1 (L) 04/28/2018 EGFR >60 04/28/2018 Magnesium: Lab Results Component Value Date MG 1.8 04/28/2018 Phosphorus: Lab Results Component Value Date PHOS 2.8 04/28/2018 PROBLEM LIST Principal Problem: Sepsis (HCC) Active Problems: Cervical myelopathy (HCC) S/P laminectomy Infectious colitis ASSESSMENT & PLAN POD # 3 from a Total colectomy end ileocolostomy whose bowel function is returning. -Encourage ambulation -Continue FLD -Continue IV abx per ID recommendations -Inserted red rubber catheter into vent of the sigmoid colon. Got immediate mucous drainag e. This is to be used to assist with administration of the vancomycin ordered by ID, instea d of rectal enemas. I cut holes along the side of the catheter to allow for equal distrubut ion of medication along the sigmoid colon and rectum. -Please leave red rubber catheter in place. If red rubber catheter advances out ok to push back in. Do not replace if it completely comes out. A/P discussed with Dr. Cardenas. Disposition: Code Status: Full Code DELANEY CHERRY 04/28/2018 onversion Olson saction, Provider Unknown - 04/28/2018 4:46 AM PSTFormatting of this note might be differen t from the original. Nurse Progress Note by Enriqueta Burgess RN at 04/28/18445 Author: Enriqueta Burgess RN Service: (none) Author Type: Registered Nurse Filed: 04/28/189 Date of Service: 04/28/18445 Status: Signed Damper Maker: Enriqueta Burgess RN (Registered Nurse) Abdominal dressing c/d/i, Pt passing gas and had minimal output from ostomy, Bowel tones ar e hypoactive. Pt continues to complain of tingling in RUE. HR 90s-120s this shift. Medicated for pain x2 with good relief. Chart check completed. onver antonio Transaction, Provider Unknown - 04/27/2018 5:30 PM PST Nurse Progress Note by Oracio Lazar RN at 04/27/18 173 Author: Oracio Lazar RN Service: (none) Author Type: Registered Nurse Filed: 04/27/18 194 Date of Service: 04/27/181729 Status: Signed Damper Maker: Oracio Lazar RN (Registered Nurse) Brown catheter reinserted today r/t urinary retention, Flomax started. Abdominal dressing c /d/i. Patient passing gas, bowel tones remain hypoactive, tolerating full liquid diet. State s to have tingling sensation to RUE. Afebrile, remains tachycardiac, HR 110-125. Continues w ith green watery stools. Medicated x2 for pain. Chart check complete. Oracio Lazar RN Oracio Preciado MD - 04/27/2018 4:49 PM PSTFormatting of this note might be differe nt from the original. Progress Notes by Oracio Villaseñor MD at 04/27/18 519 Author: Oracio Villaseñor MD Service: Infectious Disease Author Type: Physic ruthy Filed: 04/27/181656 Date of Service: 04/27/181648 Status: Signed Damper Maker: Oracio Villaseñor MD (Physician) [facility] Service: Infectious Diseases Progress Note Hospital Day: LOS: 8 days Post-Op Day: 2 Days Post-Op CC: Follow up on severe C. difficile infection, toxic megacolon, purulent peritonitis SUBJECTIVE/OVERNIGHT EVENTS The patient's encephalopathy has resolved. The patient is afebrile the fever has subsided n ow for 48 hours. The patient has developed uptrending leukocytosis today at 31,000. The patient has been having some issues with vancomycin rectal enemas and retention of the drug. The patient continues on IV Zosyn. Peritoneal cultures are no growth so far. REVIEW OF SYSTEMS GI: denies diarrhea, Constitutional: denies fever and chills and Integumentary: denies skin rash MEDICATIONS: enoxaparin 40 mg Subcutaneous Q24H gabapentin 600 mg Oral BID methocarbamol 750 mg Oral TID metronidazole 500 mg Intravenous Q8H nortriptyline 25 mg Oral Nightly pantoprazole 40 mg Oral BID AC piperacillin-tazobactam 3.375 g 3.375 g Intravenous Q8H predniSONE 10 mg Oral Daily with breakfast tamsulosin 0.4 mg Oral after dinner vancomycin 500 mg Oral 4 times per day vancomycin (VANCOCIN) rectal enema 125 mg Rectal Q6H lactated ringers 150 mL/hr at 04/27/18 1404 PRN Medications acetaminophen OR acetaminophen, calcium carbonate, diazePAM, melatonin, morphine OR morphine OR morphine, naloxone, nystatin, nystatin, ondansetron OR ondansetron, oxy CODONE OR oxyCODONE OR oxyCODONE, petrolatum, polyethylene glycol, saline lock IV - when tolerating PO fluids AND sodium chloride (PF), sodium chloride 0.9 %, zolpidem PHYSICAL EXAM Vital Signs: BP 126/76 (BP Location: Left upper arm) | Pulse 112 | Temp 98.9 F (37.2 C) (Oral) | Resp 18 | Ht 1.803 m (5' 11") | Wt 95 kg (209 lb 6.4 oz) | SpO2 96% | BMI 29.21 kg/m Temp (24hrs), Av.7 F (37.1 C), Min:98.5 F (36.9 C), Max:98.9 F (37.2 C) General Appearance: Alert, cooperative, no distress. Head: Normocephalic, without obvious abnormality, atraumatic. Lips, mucosa, and tongue normal; dentition normal; no thrush present. Eyes: PERRL, conjunctiva/corneas clear, EOM's intact. Throat: Oropharynx without exudates. Neck: Supple, symmetrical, trachea midline, no adenopathy; thyroid: no enlargement/tenderness/nodules; no carotid bruit or JVD Back: Symmetric, no curvature, ROM normal, no CVA tenderness Lungs: Clear to auscultation bilaterally, respirations unlabored Chest Wall: No tenderness or deformity Heart: Regular rate and rhythm, S1 and S2 normal, no murmur noted, no rub or gallop Abdomen: slightly Distended, painful to palpation, bowel sounds hypoactive all four shana drants, no masses, no organomegaly, exploratory laparotomy wound, ostomy with ostomy bag and some small amount of serosanguineous fluid. Extremities: Extremities normal, atraumatic, no cyanosis or edema Pulses: 2+ and symmetric all extremities Skin: Skin color, texture, turgor normal, no rashes or lesions Lymph nodes: Cervical, supraclavicular, and axillary nodes normal Neurologic: alert and rate at 3. Flaccid right arm. Venous access: PIV No signs of infection. LABS: All labs reviewed. CBC: Lab Results Component Value Date WBC 31.59 (HH) 04/27/2018 RBC 4.58 04/27/2018 HGB 13.2 04/27/2018 HCT 40.5 04/27/2018 MCV 88.5 04/27/2018 MCH 28.7 04/27/2018 MCHC 32.5 04/27/2018 RDW 43.3 04/27/2018 PLT 276 04/27/2018 MPV 8.4 04/27/2018 DIFFTYPE MANUAL 04/27/2018 CMP: Lab Results Component Value Date NA 142 04/27/2018 K 4.3 04/27/2018 CL 106 04/27/2018 CO2 25 04/27/2018 ANIONGAP 15 04/27/2018 GLUF 106 (H) 04/27/2018 BUN 26 (H) 04/27/2018 CREATININE 1.5 (H) 04/27/2018 BCR 17 04/27/2018 CA 8.1 (L) 04/27/2018 EGFR 51 (L) 04/27/2018 MICROBIOLOGY Results Procedure Component Value Units Date/Time Myelin basic protein, CSF [[id number]] (Abnormal) Collected: 04/20/18 1600 Specimen: Cerebrospinal Fluid from Lumbar Puncture Updated: 04/27/18 1316 Myelin Basic Prot, CSF >167.0 (H) ng/mL Anaerobic Culture W/Gram Stain [[id number]] Collected: 04/25/18 1635 Specimen: Abdomen Updated: 04/27/18 1124 Specimen Description ABDOMEN SPECIAL REQUESTS CX AND SENSITIVITY GRAM STAIN 2+ GRAM STAIN WBC'S SEEN GRAM STAIN NO EPITHELIAL CELLS SEEN GRAM STAIN NO ORGANISMS SEEN CULTURE NO GROWTH 2 DAYS HSV 1/2 detect/diff by rtpcr : for antigen testing on CSF, newborns & immuno-compromised. [[id number]] Collected: 04/20/18 1600 Specimen: Cerebrospinal Fluid from CSF Updated: 04/25/18 2107 SOURCE CEREBROSPINAL FLUID HSV DNA Type 1 Negative HSV DNA Type 2 Negative VDRL, CSF [[id number]] Collected: 04/20/18 1600 Specimen: Cerebrospinal Fluid from Lumbar Puncture Updated: 04/25/18 1210 VDRL Quant, CSF Non Reactive Fecal occult blood (in house) [[id number]] Collected: 04/24/18 140 Specimen: Stool from Stool Updated: 04/25/18 08 Fecal Occult Blood NEGATIVE C Difficile Only [[id number]] (Abnormal) Collected: 04/24/18 140 Specimen: Stool Updated: 04/25/18816 GDH ANTIGEN POSITIVE (A) TOXIN A & B POSITIVE (A) C DIFF INTERPRETATION Positive for toxigenic C.difficile, active toxin present. Urine culture [[id number]] Collected: 04/23/18 1251 Specimen: Urine from Urine, Catheter Updated: 04/24/181948 Specimen Description CATHETERIZED URINE CULTURE NO GROWTH IMAGING Reviewed images of : No new images for review ASSESSMENT & PLAN The patient is a 42 y.o.-year-old male with the following problems: Principal Problem: Sepsis (HCC) Active Problems: Cervical myelopathy (HCC) S/P laminectomy Infectious colitis 1. Severe sepsis with encephalopathy 2. Severe C diff infection/colitis, toxic megacolon status post total colectomy on 04/25/18 . A segment of the rectosigmoid colon remains for which the patient will use vancomycin by re tention enema 125 mg every 6 hours. Due to worsening leukocytosis, ileocolostomy and possibility of GI transit in this area, re sume oral vancomycin and IV Flagyl. Discussed with CRS, with possible placement of catheter into the mucous fistula to reach be tter the rectosigmoid colon and administer vancomycin via this route. Complex case that needs both C diff treatment and concomitant systemic antibiotic therapy. 3. Purulent peritonitis. No evidence of perforation. Possibly translocation due to severe c olitis. Continue with with intravenous Zosyn for coverage of intra-abdominal infection, servando varela. Monitor clinically. 4. Leukocytosis. Worsening leukocytosis today. Antibiotics as above. Repeat CBC in the morning Closely monitor. 5. Acute kidney injury. Creatinine trending down. Continue with supportive measures. Discussed with Dr. Ghosh. Oracio Conti MD, MPH Infectious Diseases 04/27/2018 onvers ion Transaction, Provider Unknown - 04/27/2018 2:29 PM PST Nurse Progress Note by Rick Rubio RN at 04/27/181428 Author: Rick Rubio RN Service: Wound/Ostomy Care Author Type: Registered Nurse Filed: 04/27/18 1438 Date of Service: 04/27/181428 Status: Signed Damper Maker: Rick Rubio RN (Registered Nurse) [facility] Service: Ostomy Care Consult Note Hospital Day: LOS: 8 days Post-Op Day: 2 Days Post-Op SUBJECTIVE Patient Summary: Ostomy care presents to provide 1st ostomy teaching to the patient Events Overnight: Good output from the ostomy OBJECTIVE Ostomy Type: ileocolostomy Lumen Position: right of center Stoma: red, moist, well budded. Sally-stomal: clean and intact. Current Appliance: 70mm 2 piece PROBLEM LIST Principal Problem: Sepsis (HCC) Active Problems: Cervical myelopathy (HCC) S/P laminectomy Infectious colitis ASSESSMENT & PLAN Patient is from [facility] and has no movement of his right arm, which was his primary arm before the injury. He may be able to empty his appliance with quite a bit of practice, but will de finitely need help for the first few weeks or month after discharge with emptying. I do not feel he will be able to change his ostomy appliance unless there is significant im provement of the motor function of his right arm. Though he was instructed on how to do thi s today during our teaching session. I was able to go over his first teaching, including A&P, bag emptying and changing, though he did not yet get his new ostomy folder, Krames and his starter kit was not ordered as he w ill be returning to [facility] at discharge. He has been placed on the schedule for follow up teach ing tomorrow. Thank you for allowing me to participate in the care of this patient. Please call if there are any additional questions. Rick Rubio RN 04/27/2018 Lilian Spears MD - 04/27/2018 2:04 PM PSTFormatting of this note might be different from the o riginal. Progress Notes by Lilian Grove MD at 04/27/18 1405 Author: Lilian Grove MD Service: Neurology Author Type: Physician Filed: 04/27/18 6444 Date of Service: 04/27/18 1409 Status: Addendum Damper Maker: Lilian Grove MD (Physician) Related Notes: Original Note by Lilian Grove MD (Physician) filed at 04/27/18 6248 Subjective: Patient seen and examined. Matthias Lambert is a 42 y.o. male, I was asked to evaluate Mr. Lambert for muscle twitching. Briefly (please refer to Dr. Subramanian's consult from 04/19/18): "The patient is a 42 y.o. male with significant past medical history of cervical spondylosis and radiculopathy status post cervical laminectomy today, reported uncomplicated surgery except noted hypotensive episodes with SBP 60-90. Postoperatively, he developed weakness of the right arm, pain and hyperthes ia of left arm and from neck down to waist. He had MRI of the cervical spine today revealed T2 signal throughout the cervical cord with fusiform swelling. There appears to be potentia l susceptibility artifact along the paracentral region of the cord which could reflect some hemorrhage. Reviewed his imaged with Dr. Pat and Dr. Logan. He had prior MRI of the cer vical spine in 08/2016 with no evidence of cord abnormality. Prior MRI of the brain 08/2016 on e focus of nonspecific white matter change. He reports history of right vision loss in 2000 for a few months and recovered. He has had negative MS work up." Work Up: Please see below. Dr. Subramanian impression was spinal cord ischemia (anterior spinal artery distribution) with se condary hemorrhagic transformation but less likely demyelinating process with sudden onset o f flaccid weakness postop and MRI evidence of predominant llanes matter involvement without en hancement and evidence of some cord hemorrhage. The patient is pending to have cerebrospinal fluid study hope to provide additional information, including cell counts, MS panel, NMO an tibody. Dr. Subramanian recommended recommended transfer to [facility] for further work up. I was called yesterday for twitching of left > right side. Was found down in the bathroom. No neuro-change. He lost balance, fell and hit his head against the bedside commode. It was noticed to be lethargic but arrousable with report of leg (left) jerking. On assessment righ t leg and arm were jerking against resistance. When relaxed, muscle twitching in the thigh a dina. Neurosurgery was notified and neurology was consulted. Patient reports vague history of seizures (convulsion) w/o LOS and was treated with baclofe n for that. Temp of 102 and GFR of 36. He is still on gabapentin 900 mg tid. Today: Doing better. Cognition is Ok. He reports no twitcing any more. No new neurologic co mplaints. Objective: Vitals: Temp: [98.5 F (36.9 C)-98.9 F (37.2 C)] 98.9 F (37.2 C) Heart Rate: [97-133] 133 Resp: [16-20] 19 BP: (124-152)/(73-96) 128/75 Speech: Is normal; fluent and spontaneous. Cognition: The patient is oriented to person, place, and time. Cranial Nerves: At this time, the pupils are equal, round. Extraocular movements are intact . The face is symmetric. Voice is normal. Strength: Strength is 5-/5 all but no movement of right arm distally more than proximally ( subtle movement of deltoid and right shoulder). Light Touch: Impaired right arm , ok chest today. Mild twitching of right foot. CURRENT MEDICATIONS: Scheduled Meds: enoxaparin 40 mg Subcutaneous Q24H gabapentin 600 mg Oral BID methocarbamol 750 mg Oral TID nortriptyline 25 mg Oral Nightly pantoprazole 40 mg Oral BID AC piperacillin-tazobactam 3.375 g 3.375 g Intravenous Q8H predniSONE 10 mg Oral Daily with breakfast tamsulosin 0.4 mg Oral after dinner vancomycin (VANCOCIN) rectal enema 125 mg Rectal Q6H Labs Lab Results Component Value Date WBC 31.59 (HH) 04/27/2018 HGB 13.2 04/27/2018 HCT 40.5 04/27/2018 MCV 88.5 04/27/2018 PLT 276 04/27/2018 Lab Results Component Value Date CREATININE 1.5 (H) 04/27/2018 BUN 26 (H) 04/27/2018 NA 142 04/27/2018 K 4.3 04/27/2018 CL 106 04/27/2018 CO2 25 04/27/2018 Calcium: 8.1 M.4 Images: Brain MRI from 04/20/18: 1. No acute infarction, acute intracranial hemorrhage, cerebral edema pathological mass ef fect. 2. Small nonspecific 6 mm FLAIR hyperintense focus in the right posterior pericallosal reg ion is stable compared to an MRI from 09/14/2016. Given the location this may represent a sm all demyelinating focus however no other lesions are visualized. Cervical MRI 04/19/18: 1. Postsurgical changes are noted with anterior cervical fusion from C5 through C7 with dec ompression laminectomies posteriorly. 2. There is newly developed T2 signal throughout the cervical cord with fusiform swelling. There appears to be potential susceptibility artifact along the paracentral region of the c ord which could reflect some hemorrhage. Differential considerations would include a cord c ontusion versus possible ADEM in the appropriate clinical context. Given that this does not occur along a typical vascular distribution, cord infarct with subsequent hemorrhage is thou ght to be unlikely but not excluded. This appears to extend into the thoracic cord and if i ndicated, further assessment of the thoracic cord could be performed with dedicated MRI. Th e edema is thought to be acute. 3. There is potential impingement of the left C5 and C7 nerve root. Thoracic MRI 04/20/18: 1. The previously visualized abnormal spinal cord edema in the cervical spinal cord is see n extending in the thoracic spinal cord up to the level of T4, below which the cord shows no rmal signal intensity and caliber. This abnormal cord signal appears to be slightly eccentr ic towards the right side and involves the central cord. No abnormal enhancement noted. MRA Spine 04/20/18: There is no enhancement of the cord to suggest active demyelination. Additionally, no enhan cement of the cord or surrounding the cord likely excludes a dural AVF and/or AVM of the cor d as the etiology of hemorrhage. Differential considerations of etiology of the hemorrhage within the cord remain unchanged and may possibly include spontaneous hemorrhage versus pres sure gradient differences status post decompression versus underlying bleeding diathesis. CSF: WBC: 11 RBC: 16554 Total protein: 55 Glucose: 108 CSF Cx: NGX 4 Ds. JUAN: P MARCELL: -ve VDRL: NR MS panel: Elevated MBP (neurons destruction) and mildly elevated IgG index. Zero OCBs were observed in the CSF. However four (4) paired bands were observed in both the CSF and serum. Paired bands suggest an immune response to an inflammatory process outside the ADMITTED ATTORNEYS and are u nlikely to represent a ADMITTED ATTORNEYS demyelinating disease. HSV: -ve. WNV: -ve NMO Abs: P EEG: Generalized nonspecific cerebral dysfunction. No ictal or interictal discharges. Assessment: 1- Muscle twitching mainly of the left side, possibly due to cervical etiology (ishemia (an eterior spinal artery syndrome?) complicated with hemorrhage), metabolic etiology (renal dys function, low calcium and medications side effects in the setting of renal dysfunction) vs l ess likely due to a seizure . 2- Weakness of right arm with cervical changes including hemorrhage, right > left, unclear etiology at this time. 3- Vague h/o seizure disorder (managed with baclofen per patient report) and MS (previous w ork up did not prove it per his report). 4- Leukocytosis, and infectious colitis, s/p surgical resction. Agree with Dr. Subramanian that it is less likely for demyelinating process to cause acute sympto ms with no cervical spine enhancement, and with intramedullary cervical spinal hemorrhage. C SF with no clear evidence of infectious or inflammatory process at this time but changes rel ated to inflammatory process outside the ADMITTED ATTORNEYS. Plan: 1- Telemetry bed with reasonable hydration. 2- Vital signs and neurocheck per ICU routine. Avoid hypotension. 3- For #1, adjust gabapentin and methocarbamol doses according to renal function and replac e electrolytes as needed. 4- For #2, no definite evidence of ADMITTED ATTORNEYS inflammatory process at this itme. He is on predniso ne 10 mg daily per neurosurgery. He may benefit form referral to tertiary facility for furth er evaluation if etiology still unclear. 5- For #3, doing better, wait and watch. 6- For #4, per per ID, primary team and surgery. 7- General care including GI and DVT prophylaxis and risk factors modification per primary team. Thank you for allowing us to participate in your patient care. Please call with questions. Will follow from distance. onversion Transacti on, Provider Unknown - 04/27/2018 10:28 AM PSTFormatting of this note might be different fro m the original. Therapy Progress Note by David Arnold PT at 04/27/18 1028 Author: David Arnold PT Service: (none) Author Type: Physical Therapist Filed: 04/27/18 4544 Date of Service: 04/27/18 1028 Status: Signed Damper Maker: David Arnold PT (Physical Therapist) PHYSICAL THERAPY TREATMENT NOTE PT Received On: 04/27/18 Reason for Treatment: Spinal surgery (cervical laminectomy and foraminotomy; colectomy) Requires PT Follow Up: Yes Recommendations: Prior Setting (with therapy services at [facility]) PT Ready for Discharge: Yes Plan Treatment/Interventions: Continue per Primary PT POC Progress: Progressing toward goals Summary Comments: Patient in bed upon PT arrival; eager to participate. RUE remains largely flaccid , but is making subtle progress with trace activation at the proximal shoulder including R I R/ER/Protraction/gross elevation (substitution pattern). Able to detect sensation grossly bu t with reported paresthesias. The R shoulder hangs in upright positioning, which could compr omise his shoulder capsule and rotator cuff tendons. A general sling was obtained and donned for upright activity. Pt is very receptive to education, sling able to be positioned so nidia t it does not run across the cervical spine/cervical incisions. Pt with an enema earlier and now with output into his ostomy. Pt with 2 large incontinent BMs during session, PT assisti ng with pericare and pt able to maintain standing for > 2 minutes each attempt with only lig ht handhold support via his LLE. Fatigue reported with this but no unsteadiness or dizziness . Pt completing 2 bouts of gait in room. Gait is slow and cautious, but fairly steady and we ll tolerated. Pt eager for future mobility opportunities. PROM completed (with some AAROM as pt able) for the RUE. Vitals at rest in supine: HR 117, BP 130/82, SpO2 97% RA. Precautions Spinal Precautions: Cervical Other Precautions: Fall precautions, flaccid RUE, impulsivity, Ankle shackles Cognition Overall Cognitive Status: Within Functional Limits Orientation Level: Oriented Oriented: x 4 FUNCTIONAL MOBILITY Bed Mobility Rolling: Minimal assist, Standby assist, To left, To right Supine to Sit: Min assist (1 LE OOB), Verbal instruction Sit to Supine: Min assist (1 LE into bed) - Transfers Sit to/from Stand: Minimal assist (steadying/contact guard), Verbal instruction Ambulation Maximal Ambulation Distance (feet): 25x2 Total Ambulation Distance (feet): 50 Ambulation Assistance: Minimal assist Distance limited by?: Patient's ability Pattern: Decreased yanick, Right swing foot doesn't pass stance foot, Left swing foot does n't pass stance foot, Wide base Assistive Device: Other (Comment), None (Handhold assist with PT ) THERAPEUTIC EXERCISE Therapeutic Exercises: PROM Right PROM Right: Entire UE PROM Comments: 20x reps every joint motion in the RUE AAROM Right: Shoulder AAROM Comments: Trace contractions of IR/ER/protraction/elevation - 10x Activity Tolerance: Patient limited by fatigue, Treatment limited secondary to medical comp lications Nurse Made Aware: RAFIA Narayanan present Safety Devices in Place: (guards present) Restraints Initially in Place: Yes (JOSEFA de paz) The patient reported pain rated at a 6/10. RN was notified (Oracio). Other measures provided to relieve pts pain included: Repositioning with pillows for optimal safety, comfort and pos itioning of R shoulder Education Completed: Education Topics: [x] Rationale for PT [x] PT POC [x] DC planning [x] Precautions [x] Exercises [x] Bed mobility [x] Transfer training with hand placement [x] Gait training [] Stair training [] Use of gait belt [] Other Completed with: [x] Patient [] Spouse [] Significant other [] Family [] C aregiver [] Other Completed by: [x] Verbal education [x] Demonstration [x] Handout [] Other: Response to Education: [x] Stated Understanding [] Reinforcement necessary [x] Returned demonstration [] Demonstrated understanding [] No evidence of learning [] Refused PT Goals Pt Will Go Supine To Sit: Independently Pt Will Go Sit To Supine: Independently Pt Will Transfer Sit to Stand: Independently Pt Will Ambulate: greater than 500 feet Ambulate Level Assist: With supervision Pt Will Go Up / Down Stairs: 1 flight Stairs Level of Assist: With supervision Reflects last filed data of patient's status; may be from multiple contributors [facility] Jam khan ARNP - 04/27/2018 9:53 AM PST Progress Notes by DELANEY Cherry at 04/27/18952 Author: DELANEY Cherry Service: General Surgery Author Type: Nurse Practitione r Filed: 04/27/18954 Date of Service: 04/27/18952 Status: Signed Damper Maker: DELANEY Cherry (Nurse Practitioner) [facility] Service: Colon & Rectal Surgery Progress Note Hospital Day: LOS: 8 days Post-Op Day: 2 Day Post-Op SUBJECTIVE Patient Summary: Total colectomy end ileocolostomy Events Overnight: None acute. Pt is tolerating a CLD without N/V. His ostomy is not passing any gas. Deneis chest pain and SOB. C/O mild abdominal pain at the incision. Amb ulatory. Vitals and labs stable. Scheduled Medications enoxaparin 40 mg Subcutaneous Q24H gabapentin 600 mg Oral BID methocarbamol 750 mg Oral TID nortriptyline 25 mg Oral Nightly pantoprazole 40 mg Oral BID AC piperacillin-tazobactam 3.375 g 3.375 g Intravenous Q8H predniSONE 10 mg Oral Daily with breakfast vancomycin (VANCOCIN) rectal enema 125 mg Rectal Q6H Continuous Infusions lactated ringers 150 mL/hr at 04/27/18 0572 PRN Medications acetaminophen OR acetaminophen, calcium carbonate, diazePAM, melatonin, morphine OR morphine OR morphine, naloxone, nystatin, nystatin, ondansetron OR ondansetron, oxy CODONE OR oxyCODONE OR oxyCODONE, petrolatum, polyethylene glycol, saline lock IV - when tolerating PO fluids AND sodium chloride (PF), sodium chloride 0.9 %, zolpidem OBJECTIVE Vital Signs: BP 130/82 (BP Location: Right upper arm) | Pulse 124 | Temp 98.7 F (37.1 C) (Oral) | Resp 18 | Ht 1.803 m (5' 11") | Wt 95 kg (209 lb 6.4 oz) | SpO2 95% | BMI 29.21 kg/m Patient Vitals for the past 24 hrs: BP Temp Temp src Pulse Resp SpO2 04/27/18 0833 130/82 98.7 F (37.1 C) Oral 124 18 95 % 04/27/18 0341 135/86 98.7 F (37.1 C) Oral 108 16 97 % 04/26/18 2342 135/80 98.5 F (36.9 C) Oral 97 18 94 % 04/26/181944 (!) 152/96 - - - - - 04/26/181942 (!) 129/94 98.5 F (36.9 C) Oral 118 20 92 % 04/26/18 1602 124/73 98.5 F (36.9 C) Oral 100 20 96 % 04/26/18 1154 134/78 98.5 F (36.9 C) Oral 95 20 96 % Physical Exam Constitutional: He is oriented to person, place, and time. He appears well-developed and we ll-nourished. Cardiovascular: Normal rate. Pulmonary/Chest: Effort normal. Abdomina/Gl: Soft. He exhibits no distension and no mass. There is no tenderness. There is no rebound and no guarding. Neurological: He is alert and oriented to person, place, and time. Skin: Skin is warm and dry. Psychiatric: He has a normal mood and affect. His behavior is normal. Nursing note and vitals reviewed. DATA CBC: Lab Results Component Value Date WBC 31.59 (HH) 04/27/2018 RBC 4.58 04/27/2018 HGB 13.2 04/27/2018 HCT 40.5 04/27/2018 MCV 88.5 04/27/2018 MCH 28.7 04/27/2018 MCHC 32.5 04/27/2018 RDW 43.3 04/27/2018 PLT 276 04/27/2018 MPV 8.4 04/27/2018 DIFFTYPE MANUAL 04/27/2018 CMP: Lab Results Component Value Date NA 142 04/27/2018 K 4.3 04/27/2018 CL 106 04/27/2018 CO2 25 04/27/2018 ANIONGAP 15 04/27/2018 GLUF 106 (H) 04/27/2018 BUN 26 (H) 04/27/2018 CREATININE 1.5 (H) 04/27/2018 BCR 17 04/27/2018 CA 8.1 (L) 04/27/2018 EGFR 51 (L) 04/27/2018 Magnesium: Lab Results Component Value Date MG 2.4 04/27/2018 Phosphorus: Lab Results Component Value Date PHOS 2.4 04/27/2018 PROBLEM LIST Principal Problem: Sepsis (HCC) Active Problems: Cervical myelopathy (HCC) S/P laminectomy Infectious colitis ASSESSMENT & PLAN POD # 2 from a Total colectomy end ileocolostomy whose bowel function is returning. -Encourage ambulation -FLD -Flomax -Continue IV abx per ID recommendations A/P discussed with Dr. Cardenas. Disposition: Code Status: Full Code DELANEY CHERRY 04/27/2018 Douglas Lopes DO - 04/27/2018 9:46 AM PST Progress Notes by Douglas Logan DO at 04/27/1846 Author: Douglas Logan DO Service: Neurosurgery Author Type: Physician Filed: 04/27/1848 Date of Service: 04/27/18945 Status: Signed Damper Maker: Douglas Logan DO (Physician) Neurosurgery Progress Note - Post Operative Provider: Douglas Logan DO Date : 04/27/2018 9:46 AM Referring Provider: Code Status: Full Code Hospital Day: LOS: 8 days Patient ID: [id number] Matthias Lambertis a 41 y.o.malewith severe cervical stenosis status post anterior cervical discectomy and fusion C5-C6 C6-7 with resolution of his radicular pa in market improvement in symptoms with only routine postoperative surgical pain and trapeziu s muscle spasm. Clinic Visit 04/19/2018: Matthias Lambert is a 42 y.o. male returns to neurosurgery clinic with N eurosurgical followup status post anterior cervical diskectomy and fusion C5-7. Patient unf ortunately is a [facility] patient, and despite our insistence, was not offered postoperative foll owup and followed with the local [facility] physician. 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 Patient was doing rather well for approximately 6 to 8 months until he started h aving intermittent tingling down his left hand in the C6 and C7 dermatomal region. This has returned and increased in nature. He was evaluated by his [facility] physician, who correctly or dered a CT myelogram of the cervical and lumbar spine, which showed that there was some bony overgrowth which had reoccurred at the fusion sites including C5-6, C6-7, more towards the left neural foramen, and may be the etiology of the patient's recurrent symptoms. This is a n over-healing and over-productive bone formation versus scar tissue which has compressed th e exiting nerves. Patient, during the interim, also states he has undergone other intervent ions. Recently had an ocular infection, for which he has had drainage and treatment only a few days ago. Patient denies any profound or severe weakness of the right upper extremity. Left upper extremity has improved in strength since his initial preop state, but states nidia t it was better few months ago. 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 Patient has been trying Neurontin; but because the [facility] controlled the s ubstances, not been getting it all the time. Patient does have what appears to be a lot of medical concerns for someone in [facility]. Admission Date - >04/19/2018 < - OR Date - Procedure(s): COLECTOMY (N/A) EXPLORATION - LAPAROTOMY (N/A) ILEOSTOMY - post op with paradoxical right UE RLE paralysis and hypersensitivity on left si de MRI imaging with diffuse edema in non operated and operated regions of the cervical and t horacic spine possibly diffuse demyelinating process Hospital Course: 04/20/2018 3:04 PM - RUE with some movement of hand, return of strength in RLE. Improvement of hypersensitivity of LUE LLE. 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 Jovan alishacelina was worked up for MS and told at a time that he may have a subtype of the disease. 04/21/2018 2:01 PM - marginal improvements in sensation and movement 04/22/2018 7:34 AM - Patient with some return of pain related to steroid wean 04/23/2018 10:35 AM - febrile with confusion, decreased PO intake. Urine changed to dark amb er color history of recent occular infection and prior abx cleared prior to surgery although with high dose steroids potential for UTI vs. Bacteremia unlikely incisional infection at t his time. CSF results still pending. Was having liquid BM yesterday now with abdominal pain 04/25/2018 8:03 AM - continued loose stools, intermittent episodes of confusion and left arm weakness with dilaudid. 04/26/2018 4:47 PM - patient much more alert today answering questions states allodynia of L UE with good improvement. Sensation increasing to entire RUE now tingling "like waking up" 04/27/2018 9:46 AM - in good spirits has improvement in proximal movement of right arm. Want s to discontinue baclofen Subjective Past Medical History Diagnosis Date GERD (gastroesophageal reflux disease) History of stomach ulcers Neuromyopathy (HCC) Other chronic pain Seizures (HCC) 2002 none since then Social History Social History Marital status: Unknown Spouse name: N/A Number of children: 1 Years of education: GED+ Occupational History Not on file. Social History Main Topics Smoking status: Former Smoker Quit date: 04/29/2001 Smokeless tobacco: Never Used Alcohol use No Drug use: Yes Types: Marijuana Sexual activity: Not on file Other Topics Concern Not on file Social History Narrative No narrative on file Family History Problem Relation Age of Onset Other (see comments) Father Brain tumor Cancer Other Diabetes Other No Known Allergies Objective Vital Signs: Last: Last 24hrs Vitals: 04/27/18 0833 BP: 130/82 Pulse: 124 Resp: 18 Temp: 98.7 F (37.1 C) SpO2: 95% Temp: [98.5 F (36.9 C)-98.7 F (37.1 C)] 98.7 F (37.1 C) Heart Rate: [95-124] 124 Resp: [16-20] 18 BP: (124-152)/(73-96) 130/82 Intake/Output Summary (Last 24 hours) at 04/27/18 0946 Last data filed at 04/26/18 2342 Gross per 24 hour Intake 0 ml Output 3375 ml Net -3375 ml No intake/output data recorded. 04/25 1900 - 04/27 0659 In: 2520 [I.V.:2520] Out: 4975 [Urine:4975] Vent Settings Last 24hrs: PHYSICAL EXAM: General: AAO x 4 more fluid movements of LUE. More pressured speech very alert and happy Skin:Skin color, texture, turgor normal. No rashes or lesions. HEENT: Normocephalic atraumatic S/p colostomy Muscle Strength: Right Left Upper Extremity: 1/5 hand movement and palpable bicept and forearm 5/[address] rength Lower Extremity: 4/5 5/5 Wound:Clean, dry, and intact. No evidence of wound breakdown or infection Sensation: diffus e parasthesias increased sensation RUE Recent Labs Lab 04/27/18 0422 04/26/18 0401 WBC 31.59* 23.73* RBC 4.58 4.68 HGB 13.2 13.6 HCT 40.5 42.1 PLT 276 239 BANDSABS 5.05* 4.75* No results for input(s): APTT, PROTIME, INR in the last 168 hours. Invalid input(s): FIBRINOGEN Recent Labs Lab 04/27/18 0422 04/26/18 0401 NA 142 138 K 4.3 4.8 CL 106 108 CO2 25 19* ANIONGAP 15 16 GLUF 106* 165* BUN 26* 34* CREATININE 1.5* 1.8* BCR 17 19 CA 8.1* 7.3* PHOS 2.4 3.8 MG 2.4 2.6* Lab Results Component Value Date CLARITYU CLEAR 04/23/2018 LEUKOCYTESUR NEGATIVE 04/23/2018 NITRITE NEGATIVE 04/23/2018 UROBILINOGEN NORMAL 04/23/2018 UPRO 30 (A) 04/23/2018 PHUR 6.0 04/23/2018 BLOODU SMALL (A) 04/23/2018 KETONES NEGATIVE 04/23/2018 BILIRUBINUR NEGATIVE 04/23/2018 GLUCOSEU NEGATIVE 04/23/2018 Lab Results Component Value Date TROPONINI <0.006 04/23/2018 Scheduled Medications: enoxaparin 40 mg Subcutaneous Q24H gabapentin 600 mg Oral BID methocarbamol 750 mg Oral TID nortriptyline 25 mg Oral Nightly pantoprazole 40 mg Oral BID AC piperacillin-tazobactam 3.375 g 3.375 g Intravenous Q8H predniSONE 10 mg Oral Daily with breakfast vancomycin (VANCOCIN) rectal enema 125 mg Rectal Q6H PRN Medications: acetaminophen OR acetaminophen, calcium carbonate, diazePAM, melatonin, morphine OR morphine OR morphine, naloxone, nystatin, nystatin, ondansetron OR ondansetron, oxy CODONE OR oxyCODONE OR oxyCODONE, petrolatum, polyethylene glycol, saline lock IV - when tolerating PO fluids AND sodium chloride (PF), sodium chloride 0.9 %, zolpidem Continuous Infusions lactated ringers 150 mL/hr at 04/27/18 0529 Patient Active Problem List Diagnosis Date Noted Sepsis (HCC) 04/24/2018 Infectious colitis 04/24/2018 Cervical myelopathy (HCC) 04/21/2018 S/P laminectomy 04/21/2018 Cervical radiculopathy at C7 11/04/2016 Cervical radiculopathy at C6 11/04/2016 DDD (degenerative disc disease), cervical 11/04/2016 Muscle weakness of upper extremity 11/04/2016 Bilateral carpal tunnel syndrome 08/26/2016 Assessment/Plan Matthias Lambert is a 42 y.o. male with cervical foraminal stenosis status post Procedure(s): COLECTOMY (N/A) EXPLORATION - LAPAROTOMY (N/A) ILEOSTOMY - Admit Date - 04/19/2018 - Operative date - paradoxical cervical and thoracic spi nal cord edema even in non operated segments without evidence of AVM likely intraoperative h ypotension vs. attacking acute demyelinating process. +C.Diff with colitis s/p colectomy Plan : 1. S/p resection of colon with likely ischemic injury and toxic megacolon. 2. CSF with inflamatory process, eeg with non specific cerebral dysfunction. 3. SCD's and dvt prophylaxis 4. Continue close observation 5. Steroid wean to prednisone 10 qday 6. AMS improved with colectomy and improvement in fevers 7. Encourage PT/OT 8. Patient informed that he may be followed with inhalation therapy aides teacher neurosurgeon over weekend. Douglas Logan D.O Board Certified Neurosurgeon [facility] Office Mundo Granda MD - 04/27/2018 9:13 AM PST Progress Notes by Mundo Ghosh MD at 04/27/18912 Author: Mundo Ghosh MD Service: Hospitalist Author Type: Physician Filed: 04/27/18 1241 Date of Service: 04/27/18912 Status: Signed Damper Maker: Mundo Ghosh MD (Physician) [facility] Service: Hospitalist Progress Note Pt: Matthias Lambert AGE/SEX: 42 y.o. male ROOM: [address] [place] [address] : 1975 PCP: Per PT None ADMIT DATE: 04/19/2018 TODAY'S DATE: 04/27/2018 Hospital Day/Hospital Course: LOS: 8 days Per ICU 42 y.o.malewith a Diagnoses of Cervical radiculopathy at C6, Cervical radiculopathy at C7, and DDD (degenerative disc disease) underwent CERVICAL-LAMINECTOMY POSTERIOR (N/A) - Pos terior Cervical Laminectomy, Foraminotomy five to seven today. Intraoperatively had h some hypotension requiring vasopressin otherwise uncomplicated per r eport. Post op, he was noted to have no movement of right arm or fingers, some muscle twitch ing noted in the forearm. As well severe paresthesias in b/l UE, L>R and from thigh upwards over entire trunk. MRI done emergently showed following findings : There is newly developed T2 signal throughout the cervical cord with fusiform swelling. There appears to be potential susceptibility artifact along the paracentral region of the cord which could reflect some hemorrhage. Differential considerations would include a cord contusion versus possible ADEM in the appropriate clinical context. Given that this does not occur along a typical vascular distribution, cord infarct with subsequent hemorrhage is thought to be unlikely but not excluded. This appears to extend into the thoracic cord and if indicated, further assessment of the thoracic cord could be performed with dedicated MRI. The edema is thought to be acute. Patient is admitted to ICU for serial neuro checks and active management of BP for cord per fusion" ICU Timeline: 04/19/2018: ICU admission secondary to need for serial neuro checks due to acute neuro c hanges and paralysis 04/20: Slight improvement in sensation in LUE; remains flaccid in RUE; LP performed. Stool came back positive for C. difficile and he becomes septic. On April 25 he went to or emergently toxic megacolon with peritonitis and status post Total abdominal colectomy and creation of an end loop ileo-colostomy SUBJECTIVE: Patient seen and examine. There is a liquid stool in the bag. He is passing gas. SP Total a bdominal colectomy and creation of an end loop ileo-colostomy. During much better today. Fev er curve has improved. Abdominal pain is improved. Continue to have a weakness in the right arm. Still having a numbness. Can Not move his right arm at the wrist and fingers. He can m ove his arm at the elbow and shoulder joint. He is moving his right leg. Scheduled Medications: baclofen 10 mg Oral Daily enoxaparin 40 mg Subcutaneous Q24H gabapentin 600 mg Oral BID methocarbamol 750 mg Oral TID nortriptyline 25 mg Oral Nightly pantoprazole 40 mg Oral QAM AC piperacillin-tazobactam 3.375 g 3.375 g Intravenous Q8H predniSONE 10 mg Oral Daily with breakfast vancomycin (VANCOCIN) rectal enema 125 mg Rectal Q6H Continuous Infusions lactated ringers 150 mL/hr at 04/27/18 0529 PRN Medications acetaminophen OR acetaminophen, calcium carbonate, diazePAM, melatonin, morphine OR morphine OR morphine, naloxone, nystatin, nystatin, ondansetron OR ondansetron, oxy CODONE OR oxyCODONE OR oxyCODONE, petrolatum, polyethylene glycol, saline lock IV - when tolerating PO fluids AND sodium chloride (PF), sodium chloride 0.9 %, zolpidem Allergy: No Known Allergies OBJECTIVE: Vitals: Patient Vitals for the past 24 hrs: BP Temp Temp src Pulse Resp SpO2 04/27/18 0833 130/82 98.7 F (37.1 C) Oral 124 18 95 % 04/27/18 0341 135/86 98.7 F (37.1 C) Oral 108 16 97 % 04/26/18 2342 135/80 98.5 F (36.9 C) Oral 97 18 94 % 04/26/181944 (!) 152/96 - - - - - 04/26/181942 (!) 129/94 98.5 F (36.9 C) Oral 118 20 92 % 04/26/18 1602 124/73 98.5 F (36.9 C) Oral 100 20 96 % 04/26/18 1154 134/78 98.5 F (36.9 C) Oral 95 20 96 % I&O Detailed Table: Intake/Output Summary (Last 24 hours) at 04/27/18912 Last data filed at 04/26/182341 Gross per 24 hour Intake 0 ml Output 3375 ml Net -3375 ml Patient Vitals for the past 96 hrs: Weight 04/25/18 0350 95 kg (209 lb 6.4 oz) Hemodynamics Last 24hrs: Physical Examination: Constitutional: He is looking better. More awake and talking to me. HEENT: Neck supple, no JVD, non icteric sclera. Cardiovascular: Normal rate S1, S2 Pulmonary/Chest: Chest clear b/l Abdominal: Abdomen is soft. Tender today at the surgical site Extremeties/Musculoskeletal: Not having any edema. Neurological: Alert and oriented to person, place, and time. Power is 1 out of 5 in the ri ght arm. He can move his arm at the elbow and the right shoulder. He cannot move his right w rist and he cannot move his right hand fingers. Decreased sensation. Power is 5 out of 5 in the left arm and left leg. Skin: Skin is warm and dry. No rash noted. No erythema. No pallor. Psychiatric: Has a normal mood and affect. Behavior is normal. Judgment normal. Not suicida l LABS: Recent Labs Lab 04/27/1842104/26/18 0401 04/25/18 0406 WBC 31.59* 23.73* 24.61* HGB 13.2 13.6 13.7 HCT 40.5 42.1 42.5 PLT 276 239 280 Recent Labs Lab 04/27/18 0422 04/26/18 0401 04/25/18 0406 NA 142 138 134* K 4.3 4.8 4.2 CL 106 108 102 CO2 25 19* 20* BUN 26* 34* 27* CREATININE 1.5* 1.8* 2.0* Phosphorus: Lab Results Component Value Date PHOS 2.4 04/27/2018 Recent Labs Lab 04/27/18 0422 04/26/18 0401 04/25/18 0406 MG 2.4 2.6* 2.3 Results Procedure Component Value Units Date/Time Anaerobic Culture W/Gram Stain [[id number]] Collected: 04/25/18 1635 Specimen: Abdomen Updated: 04/26/18 1327 Specimen Description ABDOMEN SPECIAL REQUESTS CX AND SENSITIVITY GRAM STAIN 2+ GRAM STAIN WBC'S SEEN GRAM STAIN NO EPITHELIAL CELLS SEEN GRAM STAIN NO ORGANISMS SEEN CULTURE NO GROWTH AT THIS TIME HSV 1/2 detect/diff by rtpcr : for antigen testing on CSF, newborns & immuno-compromised. [[id number]] Collected: 04/20/18 1600 Specimen: Cerebrospinal Fluid from CSF Updated: 04/25/18 2107 SOURCE CEREBROSPINAL FLUID HSV DNA Type 1 Negative HSV DNA Type 2 Negative VDRL, CSF [[id number]] Collected: 04/20/18 1600 Specimen: Cerebrospinal Fluid from Lumbar Puncture Updated: 04/25/18 1210 VDRL Quant, CSF Non Reactive Fecal occult blood (in house) [[id number]] Collected: 04/24/18 1405 Specimen: Stool from Stool Updated: 04/25/18 0817 Fecal Occult Blood NEGATIVE C Difficile Only [[id number]] (Abnormal) Collected: 04/24/18 1405 Specimen: Stool Updated: 04/25/18 0817 GDH ANTIGEN POSITIVE (A) TOXIN A & B POSITIVE (A) C DIFF INTERPRETATION Positive for toxigenic C.difficile, active toxin present. Urine culture [[id number]] Collected: 04/23/18 1251 Specimen: Urine from Urine, Catheter Updated: 04/24/18 1949 Specimen Description CATHETERIZED URINE CULTURE NO GROWTH Blood Culture Set 2 [[id number]] Collected: 04/23/18 0858 Specimen: Blood from Blood, peripheral draw Updated: 04/24/18 1214 Specimen Description BLOOD, PERIPHERAL DRAW SPECIAL REQUESTS LWRIST CULTURE NO GROWTH AT THIS TIME Blood Culture Set 1 [[id number]] Collected: 04/23/18 0851 Specimen: Blood from Blood, peripheral draw Updated: 04/24/18 1214 Specimen Description BLOOD, PERIPHERAL DRAW SPECIAL REQUESTS RAC CULTURE NO GROWTH AT THIS TIME Diagnostic Imaging: Impressions only: Mri Brain With And Without Contrast Result Date: 04/20/2018 1. No acute infarction, acute intracranial hemorrhage, cerebral edema pathological mass ef fect. 2. Small nonspecific 6 mm FLAIR hyperintense focus in the right posterior pericallosa l region is stable compared to an MRI from 09/14/2016. Given the location this may represent a small demyelinating focus however no other lesions are visualized. Clinical correlation is recommended. Signed by: MD Hinkle Sadaf Sign Date/Time: 04/20/2018 6:56 AM Mri Cervical Spine Without Contrast Result Date: 04/19/2018 1. Postsurgical changes are noted with anterior cervical fusion from C5 through C7 with dec ompression laminectomies posteriorly. 2. There is newly developed T2 signal throughout the c ervical cord with fusiform swelling. There appears to be potential susceptibility artifact along the paracentral region of the cord which could reflect some hemorrhage. Differential considerations would include a cord contusion versus possible ADEM in the appropriate clinic al context. Given that this does not occur along a typical vascular distribution, cord infar ct with subsequent hemorrhage is thought to be unlikely but not excluded. This appears to e xtend into the thoracic cord and if indicated, further assessment of the thoracic cord could be performed with dedicated MRI. The edema is thought to be acute. 3. There is potential i mpingement of the left C5 and C7 nerve root. 4. Critical result: Imaging findings are discus sed with the ordering provider by telephone at 1:25 p.m.. Signed by: Darryl Pat Sign Da te/Time: 04/19/2018 1:30 PM Mri Thoracic Spine With And Without Contrast Result Date: 04/20/2018 1. The previously visualized abnormal spinal cord edema in the cervical spinal cord is see n extending in the thoracic spinal cord up to the level of T4, below which the cord shows no rmal signal intensity and caliber. This abnormal cord signal appears to be slightly eccentr ic towards the right side and involves the central cord. No abnormal enhancement noted. Sig michelle by: MD Hinkle Sadaf Sign Date/Time: 04/20/2018 7:02 AM Mra Spine With And Without Contrast Result Date: 04/20/2018 1. There is no enhancement of the cord to suggest active demyelination. Additionally, no en hancement of the cord or surrounding the cord likely excludes a dural AVF and/or AVM of the cord as the etiology of hemorrhage. Differential considerations of etiology of the hemorrha ge within the cord remain unchanged and may possibly include spontaneous hemorrhage versus p ressure gradient differences status post decompression versus underlying bleeding diathesis. Signed by: Darryl Pat Sign Date/Time: 04/20/2018 2:52 PM X-ray C-arm Fluoro Up To 1 Hour Result Date: 04/19/2018 Intraoperative fluoroscopic assessment. Signed by: Jose C Russell Sign Date/Time: 04/19/2018 2 :42 PM PROBLEM LIST Principal Problem: Sepsis (HCC) Active Problems: Cervical myelopathy (HCC) S/P laminectomy Infectious colitis Resolved Problems: * No resolved hospital problems. * ASSESSMENT & PLAN 42 y.o.malewith a Diagnoses of Cervical radiculopathy at C6, Cervical radiculopathy at C7, and DDD (degenerative disc disease) underwent CERVICAL-LAMINECTOMY POSTERIOR (N/A) - Pos terior Cervical Laminectomy, Foraminotomy five to seven today. Intraoperatively had h some hypotension requiring vasopressin otherwise uncomplicated per r eport. Post op, he was noted to have no movement of right arm or fingers, some muscle twitch ing noted in the forearm. Active Problems: Fever with sepsis with infectious colitis due to C. difficile with toxic megacolon and sally tonitis: He is getting better. He is passing gas and having stool in the bag. On April 25, 2011 abdominal distention, fever, tachycardia and hypotension secondary to toxic megacolon. Went to the operating room emergently. SP Total abdominal colectomy and cr eation of an end loop ileo-colostomy with operating finding consistent with toxic megacolon and peritonitis. Fever curve has improved. White cell count is getting better.. Stool is pos itive for C. difficile. CT finding consistent with infectious colitis. GI has already evalua sara the patient. I still Recommend infectious diseases consultation. Currently vancomycin d ay #4 oral also received IV Flagyl that has been discontinued. Now on IV Zosyn day #5 His blood pressure has improved. Cervical myelopathy (HCC) S/P laminectomy. Postoperatively he was hypotensive. He was noted to have a weakness on the right arm and finger with muscle twitching. He is moving his right arm at the shoulder j oint and at the elbow. Cannot flex or extend his right wrist. Cannot move his fingers. He sa id he is numb but can have the sensation now. Decreased sensation in the abdominal wall as w ell. More likely related to ADEM versus contusion versus infarct. On 04/25/[address] Subramanian she is not inclined towards demyelinating disease. Blood pressure is better now. Resolved Problems: * No resolved hospital problems. * Patient diagnosed with: , and I agree with the following nutritional recommendations: Recommendations Recommended energy needs: Advance diet once indicated. Boost Breeze ordered TID for pt. Enc ourage pt to consume these. If anticipate prolonged NPO/clear liquids, recommend nutrition s upport as pt has had inadequate PO for 1 week already. MUNDO GHOSH MD, FACP 04/27/2018 9:13 AM Dictation software, Kont[employer], used which may contain error for similar sounding words even af ter review. Personal communication requested for any clarification. Portions of this chart may have been copied from previous notes for continuity of care purp ose onversion Transac tion, Provider Unknown - 04/27/2018 6:46 AM PSTFormatting of this note might be different f rom the original. Nurse Progress Note by Antwon Barillas RN at 04/27/18645 Author: Antwon Barillas RN Service: (none) Author Type: Registered Nurse Filed: 04/27/18645 Date of Service: 04/27/18645 Status: Signed Damper Maker: Antwon Barillas RN (Registered Nurse) Chart check complete. onver antonio Transaction, Provider Unknown - 04/26/2018 11:20 PM PST Nurse Progress Note by Antwon Barillas RN at 04/26/182319 Author: Antwon Barillas RN Service: (none) Author Type: Registered Nurse Filed: 04/27/18 0011 Date of Service: 02/26/19 2320 Status: Signed Damper Maker: Antwon Barillas RN (Registered Nurse) Pt noticeably tachy in the 120 with SBP in 150's. Bladder scan showed greater than 900. Pt had 925 output on insertion of brown. onver antonio Transaction, Provider Unknown - 04/26/2018 6:36 PM PST Nurse Progress Note by Traci Porter RN at 04/26/181835 Author: Traci Porter RN Service: (none) Author Type: Registered Nurse Filed: 04/26/181836 Date of Service: 04/26/181835 Status: Signed Damper Maker: Traci Porter RN (Registered Nurse) End of shift chart check complete Douglas Webb DO - 04/26/2018 4:46 PM PSTFormatting of this note might be different from the or iginal. Progress Notes by Douglas Logan DO at 04/26/181645 Author: Douglas Logan DO Service: Neurosurgery Author Type: Physician Filed: 04/26/181654 Date of Service: 04/26/181645 Status: Signed Damper Maker: Douglas Logan DO (Physician) Neurosurgery Progress Note - Post Operative Provider: Douglas Logan DO Date : 04/26/2018 4:46 PM Referring Provider: Code Status: Full Code Hospital Day: LOS: 7 days Patient ID: [id number] Matthias Lambertis a 41 y.o.malewith severe cervical stenosis status post anterior cervical discectomy and fusion C5-C6 C6-7 with resolution of his radicular pa in market improvement in symptoms with only routine postoperative surgical pain and trapeziu s muscle spasm. Clinic Visit 04/19/2018: Matthias Lambert is a 42 y.o. male returns to neurosurgery clinic with N eurosurgical followup status post anterior cervical diskectomy and fusion C5-7. Patient unf ortunately is a [facility] patient, and despite our insistence, was not offered postoperative foll owup and followed with the local [facility] physician. 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 Patient was doing rather well for approximately 6 to 8 months until he started h aving intermittent tingling down his left hand in the C6 and C7 dermatomal region. This has returned and increased in nature. He was evaluated by his [facility] physician, who correctly or dered a CT myelogram of the cervical and lumbar spine, which showed that there was some bony overgrowth which had reoccurred at the fusion sites including C5-6, C6-7, more towards the left neural foramen, and may be the etiology of the patient's recurrent symptoms. This is a n over-healing and over-productive bone formation versus scar tissue which has compressed th e exiting nerves. Patient, during the interim, also states he has undergone other intervent ions. Recently had an ocular infection, for which he has had drainage and treatment only a few days ago. Patient denies any profound or severe weakness of the right upper extremity. Left upper extremity has improved in strength since his initial preop state, but states nidia t it was better few months ago. 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 Patient has been trying Neurontin; but because the [facility] controlled the s ubstances, not been getting it all the time. Patient does have what appears to be a lot of medical concerns for someone in [facility]. Admission Date - >04/19/2018 < - OR Date - Procedure(s): COLECTOMY (N/A) EXPLORATION - LAPAROTOMY (N/A) ILEOSTOMY - post op with paradoxical right UE RLE paralysis and hypersensitivity on left si de MRI imaging with diffuse edema in non operated and operated regions of the cervical and t horacic spine possibly diffuse demyelinating process Hospital Course: 04/20/2018 3:04 PM - RUE with some movement of hand, return of strength in RLE. Improvement of hypersensitivity of LUE LLE. 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 P colt was worked up for MS and told at a time that he may have a subtype of the disease. 04/21/2018 2:01 PM - marginal improvements in sensation and movement 04/22/2018 7:34 AM - Patient with some return of pain related to steroid wean 04/23/2018 10:35 AM - febrile with confusion, decreased PO intake. Urine changed to dark amb er color history of recent occular infection and prior abx cleared prior to surgery although with high dose steroids potential for UTI vs. Bacteremia unlikely incisional infection at t his time. CSF results still pending. Was having liquid BM yesterday now with abdominal pain 04/25/2018 8:03 AM - continued loose stools, intermittent episodes of confusion and left arm weakness with dilaudid. 04/26/2018 4:47 PM - patient much more alert today answering questions states allodynia of L UE with good improvement. Sensation increasing to entire RUE now tingling "like waking up" Subjective Past Medical History Diagnosis Date GERD (gastroesophageal reflux disease) History of stomach ulcers Neuromyopathy (HCC) Other chronic pain Seizures (HCC) 2002 none since then Social History Social History Marital status: Unknown Spouse name: N/A Number of children: 1 Years of education: GED+ Occupational History Not on file. Social History Main Topics Smoking status: Former Smoker Quit date: 04/29/2001 Smokeless tobacco: Never Used Alcohol use No Drug use: Yes Types: Marijuana Sexual activity: Not on file Other Topics Concern Not on file Social History Narrative No narrative on file Family History Problem Relation Age of Onset Other (see comments) Father Brain tumor Cancer Other Diabetes Other No Known Allergies Objective Vital Signs: Last: Last 24hrs Vitals: 04/26/18 1602 BP: 124/73 Pulse: 100 Resp: 20 Temp: 98.5 F (36.9 C) SpO2: 96% Temp: [97.1 F (36.2 C)-98.5 F (36.9 C)] 98.5 F (36.9 C) Heart Rate: [93-124] 100 Resp: [10-29] 20 BP: (116-140)/(73-92) 124/73 Intake/Output Summary (Last 24 hours) at 04/26/18 1646 Last data filed at 04/26/18 1354 Gross per 24 hour Intake 4020 ml Output 4110 ml Net -90 ml 04/26 0700 - 04/26 1859 In: - Out: 2450 [Urine:2450] 04/24 1900 - 04/26 0659 In: 4420 [I.V.:4420] Out: 2860 [Urine:2860] Vent Settings Last 24hrs: PHYSICAL EXAM: General: AAO x 4 more fluid movements of LUE Skin:Skin color, texture, turgor normal. No rashes or lesions. HEENT: Normocephalic atraumatic S/p colostomy Muscle Strength: Right Left Upper Extremity: 1/5 hand movement and palpable bicept and forearm 5/[address] rength Lower Extremity: 4/5 5/5 Wound:Clean, dry, and intact. No evidence of wound breakdown or infection Sensation: diffus e parasthesias increased sensation RUE Recent Labs Lab 04/26/18 0401 04/25/18 0406 WBC 23.73* 24.61* RBC 4.68 4.74 HGB 13.6 13.7 HCT 42.1 42.5 PLT 239 280 BANDSABS 4.75* 7.88* No results for input(s): APTT, PROTIME, INR in the last 168 hours. Invalid input(s): FIBRINOGEN Recent Labs Lab 04/26/18 0401 04/25/18 0406 NA 138 134* K 4.8 4.2 CL 108 102 CO2 19* 20* ANIONGAP 16 16 GLUF 165* 85 BUN 34* 27* CREATININE 1.8* 2.0* BCR 19 14 CA 7.3* 7.7* PHOS 3.8 3.2 MG 2.6* 2.3 Lab Results Component Value Date CLARITYU CLEAR 04/23/2018 LEUKOCYTESUR NEGATIVE 04/23/2018 NITRITE NEGATIVE 04/23/2018 UROBILINOGEN NORMAL 04/23/2018 UPRO 30 (A) 04/23/2018 PHUR 6.0 04/23/2018 BLOODU SMALL (A) 04/23/2018 KETONES NEGATIVE 04/23/2018 BILIRUBINUR NEGATIVE 04/23/2018 GLUCOSEU NEGATIVE 04/23/2018 Lab Results Component Value Date TROPONINI <0.006 04/23/2018 Scheduled Medications: [START ON 04/27/2018] baclofen 10 mg Oral Daily calcium gluconate IVPB custom 1 g Intravenous Once enoxaparin 40 mg Subcutaneous Q24H gabapentin 600 mg Oral BID methocarbamol 750 mg Oral TID nortriptyline 25 mg Oral Nightly pantoprazole 40 mg Oral QAM AC piperacillin-tazobactam 3.375 g 3.375 g Intravenous Q8H predniSONE 10 mg Oral Daily with breakfast vancomycin (VANCOCIN) rectal enema 125 mg Rectal Q6H PRN Medications: acetaminophen OR acetaminophen, calcium carbonate, diazePAM, melatonin, morphine OR morphine OR morphine, naloxone, nystatin, nystatin, ondansetron OR ondansetron, oxy CODONE OR oxyCODONE OR oxyCODONE, petrolatum, polyethylene glycol, saline lock IV - when tolerating PO fluids AND sodium chloride (PF), sodium chloride 0.9 %, zolpidem Continuous Infusions lactated ringers 150 mL/hr at 04/26/18 1216 Patient Active Problem List Diagnosis Date Noted Sepsis (HCC) 04/24/2018 Infectious colitis 04/24/2018 Cervical myelopathy (HCC) 04/21/2018 S/P laminectomy 04/21/2018 Cervical radiculopathy at C7 11/04/2016 Cervical radiculopathy at C6 11/04/2016 DDD (degenerative disc disease), cervical 11/04/2016 Muscle weakness of upper extremity 11/04/2016 Bilateral carpal tunnel syndrome 08/26/2016 Assessment/Plan Matthias Lambert is a 42 y.o. male with cervical foraminal stenosis status post Procedure(s): COLECTOMY (N/A) EXPLORATION - LAPAROTOMY (N/A) ILEOSTOMY - Admit Date - 04/19/2018 - Operative date - paradoxical cervical and thoracic spi nal cord edema even in non operated segments without evidence of AVM likely intraoperative h ypotension vs. attacking acute demyelinating process. +C.Diff with colitis s/p colectomy Plan : 1. S/p resection of colon with likely ischemic injury and toxic megacolon 2. CSF with inflamatory process, eeg with non specific cerebral dysfunction. 3. SCD's and dvt prophylaxis 4. Continue close observation 5. Steroid wean to prednisone 10 qday 6. AMS improved with colectomy and improvement in fevers 7. Encourage PT/OT 8. Inpatient course discussed with patient expressed regret over recent complications, elida ent accepting of course focused on getting better and optimistic about arm improvement. Douglas Logan D.O Board Certified Neurosurgeon [facility] Office onversion Transactio n, Provider Unknown - 04/26/2018 2:45 PM PST Progress Notes by Anastasiya Díaz RD at 04/26/18 1442 Author: Anastasiya Díaz RD Service: (none) Author Type: Registered Dietitian Filed: 04/26/18 1441 Date of Service: 04/26/18 1449 Status: Signed Damper Maker: Anastasiya Díaz RD (Registered Dietitian) 04/26/18 1433 Subjective Timepoint (LOS, NPO x 5) Pt c/o 42 yo M admitted for cervical laminectomy on 04/19, developed C. diff infectious coli tis and s/p total colectomy with end loop ileostomy on 04/25. Per RN, diet will not advance u ntil pt passes gas. Fluid / Beverage Intake Oral Fluids Amount clear liquids - coffee, tea, and Boost Breeze. pt has had inadequate int shalini for 1 week, since admit on 04/19 Liquid Meal Replacement or Supplement Boost Breeze ordered TID on meal trays Parenteral Nutrition Intake Rate/Solution LR @ 150 mL/hr Nutrition-Focused Physical Findings Digestive System (Mouth to Rectum) ileostomy Skin abdominal incision Anthropometrics Weight change Admit wt: 91.5 kg, pt is 117% IBW. Wt up 3.5 kg from admit wt. Pt is -1.5 L f luid per I/Os. Biochemical data, medical tests, and procedures reviewed Biochemical data, medical tests, and procedures reviewed BG 165, BUN 34, Cr 1.8, Mg 2.6 Estimated Energy Needs Total Energy Estimated Needs 7219-6221 kcal Method for Estimating Needs 25-30 kcal/kg admit wt Estimated Protein Needs Total Protein Estimated Needs 110-137 g Method for Estimating Needs 1.2-1.5 g/kg admit wt Recommendations Recommended energy needs Advance diet once indicated. Boost Breeze ordered TID for pt. Enco urage pt to consume these. If anticipate prolonged NPO/clear liquids, recommend nutrition avitia pport as pt has had inadequate PO for 1 week already. Nutritional Risk Nutritional risk High Follow up date 04/29/[address], CD Oracio Preciado MD - 04/26/2018 1:41 PM PSTFormatting of this note might be differe nt from the original. Progress Notes by Oracio Villaseñor MD at 04/26/18 1341 Author: Oracio Villaseñor MD Service: Infectious Disease Author Type: Physic ruthy Filed: 04/27/18 1985 Date of Service: 04/26/18 1341 Status: Signed Damper Maker: Oracio Villaseñor MD (Physician) [facility] Service: Infectious Diseases Progress Note Hospital Day: LOS: 8 days Post-Op Day: 2 Days Post-Op CC: Follow up on severe C. difficile infection, peritonitis SUBJECTIVE/OVERNIGHT EVENTS Patient was taken to the or yesterday emergently for total colectomy. Patient had total col ectomy after that level of the mid sigmoid colon. An ileal colostomy was created. The patien t was also found to have peritonitis with purulent fluid. No fecal matter was encountered. Patient was brought to the medical floor and was started on intravenous Zosyn yesterday due to intraperitoneal findings. The patient's encephalopathy has started to improve. REVIEW OF SYSTEMS GI: denies diarrhea, Constitutional: denies fever and chills and Integumentary: denies skin rash MEDICATIONS: enoxaparin 40 mg Subcutaneous Q24H gabapentin 600 mg Oral BID methocarbamol 750 mg Oral TID metronidazole 500 mg Intravenous Q8H nortriptyline 25 mg Oral Nightly pantoprazole 40 mg Oral BID AC piperacillin-tazobactam 3.375 g 3.375 g Intravenous Q8H predniSONE 10 mg Oral Daily with breakfast tamsulosin 0.4 mg Oral after dinner vancomycin 500 mg Oral 4 times per day vancomycin (VANCOCIN) rectal enema 125 mg Rectal Q6H lactated ringers 150 mL/hr at 04/27/18 1404 PRN Medications acetaminophen OR acetaminophen, calcium carbonate, diazePAM, melatonin, morphine OR morphine OR morphine, naloxone, nystatin, nystatin, ondansetron OR ondansetron, oxy CODONE OR oxyCODONE OR oxyCODONE, petrolatum, polyethylene glycol, saline lock IV - when tolerating PO fluids AND sodium chloride (PF), sodium chloride 0.9 %, zolpidem PHYSICAL EXAM Vital Signs: BP 126/76 (BP Location: Left upper arm) | Pulse 112 | Temp 98.9 F (37.2 C) (Oral) | Resp 18 | Ht 1.803 m (5' 11") | Wt 95 kg (209 lb 6.4 oz) | SpO2 96% | BMI 29.21 kg/m Temp (24hrs), Av.7 F (37.1 C), Min:98.5 F (36.9 C), Max:98.9 F (37.2 C) General Appearance: Alert, cooperative, no distress. Head: Normocephalic, without obvious abnormality, atraumatic. Lips, mucosa, and tongue normal; dentition normal; no thrush present. Eyes: PERRL, conjunctiva/corneas clear, EOM's intact. Throat: Oropharynx without exudates. Neck: Supple, symmetrical, trachea midline, no adenopathy; thyroid: no enlargement/tenderness/nodules; no carotid bruit or JVD Back: Symmetric, no curvature, ROM normal, no CVA tenderness Lungs: Clear to auscultation bilaterally, respirations unlabored Chest Wall: No tenderness or deformity Heart: Regular rate and rhythm, S1 and S2 normal, no murmur noted, no rub or gallop Abdomen: slightly Distended, painful to palpation, bowel sounds hypoactive all four quad rants, no masses, no organomegaly, exploratory laparotomy wound, ostomy with ostomy bag and some small amount of serosanguineous fluid. Extremities: Extremities normal, atraumatic, no cyanosis or edema Pulses: 2+ and symmetric all extremities Skin: Skin color, texture, turgor normal, no rashes or lesions Lymph nodes: Cervical, supraclavicular, and axillary nodes normal Neurologic: Disoriented to time. Flaccid right arm. Venous access: PIV No signs of infection. LABS: All labs reviewed. CBC: Lab Results Component Value Date WBC 31.59 (HH) 04/27/2018 RBC 4.58 04/27/2018 HGB 13.2 04/27/2018 HCT 40.5 04/27/2018 MCV 88.5 04/27/2018 MCH 28.7 04/27/2018 MCHC 32.5 04/27/2018 RDW 43.3 04/27/2018 PLT 276 04/27/2018 MPV 8.4 04/27/2018 DIFFTYPE MANUAL 04/27/2018 CMP: Lab Results Component Value Date NA 142 04/27/2018 K 4.3 04/27/2018 CL 106 04/27/2018 CO2 25 04/27/2018 ANIONGAP 15 04/27/2018 GLUF 106 (H) 04/27/2018 BUN 26 (H) 04/27/2018 CREATININE 1.5 (H) 04/27/2018 BCR 17 04/27/2018 CA 8.1 (L) 04/27/2018 EGFR 51 (L) 04/27/2018 MICROBIOLOGY Results Procedure Component Value Units Date/Time Myelin basic protein, CSF [[id number]] (Abnormal) Collected: 04/20/18 1600 Specimen: Cerebrospinal Fluid from Lumbar Puncture Updated: 04/27/18 1316 Myelin Basic Prot, CSF >167.0 (H) ng/mL Anaerobic Culture W/Gram Stain [[id number]] Collected: 04/25/18 1635 Specimen: Abdomen Updated: 04/27/18 1124 Specimen Description ABDOMEN SPECIAL REQUESTS CX AND SENSITIVITY GRAM STAIN 2+ GRAM STAIN WBC'S SEEN GRAM STAIN NO EPITHELIAL CELLS SEEN GRAM STAIN NO ORGANISMS SEEN CULTURE NO GROWTH 2 DAYS HSV 1/2 detect/diff by rtpcr : for antigen testing on CSF, newborns & immuno-compromised. [[id number]] Collected: 04/20/18 1600 Specimen: Cerebrospinal Fluid from CSF Updated: 04/25/18 2107 SOURCE CEREBROSPINAL FLUID HSV DNA Type 1 Negative HSV DNA Type 2 Negative VDRL, CSF [[id number]] Collected: 04/20/18 1600 Specimen: Cerebrospinal Fluid from Lumbar Puncture Updated: 04/25/18 1210 VDRL Quant, CSF Non Reactive Fecal occult blood (in house) [[id number]] Collected: 04/24/18 1405 Specimen: Stool from Stool Updated: 04/25/18 0817 Fecal Occult Blood NEGATIVE C Difficile Only [[id number]] (Abnormal) Collected: 04/24/18 1405 Specimen: Stool Updated: 04/25/1817 [facility] ANTIGEN POSITIVE (A) TOXIN A & B POSITIVE (A) C DIFF INTERPRETATION Positive for toxigenic C.difficile, active toxin present. Urine culture [[id number]] Collected: 04/23/18 1251 Specimen: Urine from Urine, Catheter Updated: 04/24/18 1949 Specimen Description CATHETERIZED URINE CULTURE NO GROWTH IMAGING Reviewed images of : No new images for review ASSESSMENT & PLAN The patient is a 42 y.o.-year-old male with the following problems: Principal Problem: Sepsis (HCC) Active Problems: Cervical myelopathy (HCC) S/P laminectomy Infectious colitis 1. Severe sepsis with encephalopathy 2. Severe C diff infection/colitis, toxic megacolon status post total colectomy on 04/25/18 . Now the patient has had colectomy, there is a segment of the rectosigmoid colon that remain s for which the patient will start vancomycin by retention enema 125 mg every 6 hours. June d iscontinue IV metronidazole today and observe. 3. New problem: Purulent peritonitis. No evidence of perforation. Possibly translocation du e to severe colitis. Now that the patient has colectomy, agree with intravenous Zosyn for co verage of intra-abdominal infection, anaerobes. Monitor clinically. 4. Leukocytosis. Repeat CBC in the morning Continue with supportive measures. Discussed with Dr. Ghosh and Dr. Cardenas. Oracio Conti MD, MPH Infectious Diseases 04/26/18 Lilian Muir MD - 04/26/2018 1:13 PM PSTFormatting of this note might be different from the or iginal. Progress Notes by Lilian Grove MD at 04/26/18 2021 Author: Lilian Grove MD Service: Neurology Author Type: Physician Filed: 04/27/18 0902 Date of Service: 04/26/18 1313 Status: Addendum Damper Maker: Lilian Grove MD (Physician) Related Notes: Original Note by Lilian Grove MD (Physician) filed at 04/26/18 4161 Subjective: Patient seen and examined. Matthias Lambert is a 42 y.o. male, I was asked to evaluate Mr. Lambert for muscle twitching. Briefly (please refer to Dr. Subramanian's consult from 04/19/18): "The patient is a 42 y.o. male with significant past medical history of cervical spondylosis and radiculopathy status post cervical laminectomy today, reported uncomplicated surgery except noted hypotensive episodes with SBP 60-90. Postoperatively, he developed weakness of the right arm, pain and hyperthes ia of left arm and from neck down to waist. He had MRI of the cervical spine today revealed T2 signal throughout the cervical cord with fusiform swelling. There appears to be potentia l susceptibility artifact along the paracentral region of the cord which could reflect some hemorrhage. Reviewed his imaged with Dr. Pat and Dr. Logan. He had prior MRI of the cer vical spine in 08/2016 with no evidence of cord abnormality. Prior MRI of the brain 08/2016 on e focus of nonspecific white matter change. He reports history of right vision loss in 1999 for a few months and recovered. He has had negative MS work up." Work Up: Please see below. Dr. Subramanian impression was spinal cord ischemia (anterior spinal artery distribution) with se condary hemorrhagic transformation but less likely demyelinating process with sudden onset o f flaccid weakness postop and MRI evidence of predominant llanes matter involvement without en hancement and evidence of some cord hemorrhage. The patient is pending to have cerebrospinal fluid study hope to provide additional information, including cell counts, MS panel, NMO an tibody. Dr. Subramanian recommended recommended transfer to [facility] for further work up. I was called yesterday for twitching of left > right side. Was found down in the bathroom. No neuro-change. He lost balance, fell and hit his head against the bedside commode. It was noticed to be lethargic but arrousable with report of leg (left) jerking. On assessment righ t leg and arm were jerking against resistance. When relaxed, muscle twitching in the thigh a dina. Neurosurgery was notified and neurology was consulted. Patient reports vague history of seizures (convulsion) w/o LOS and was treated with baclofe n for that. Temp of 102 and GFR of 36. He is still on gabapentin 900 mg tid. Today: Doing better, awake, alert and oriented. No change but muscle twitch is better (lomi td to toes). Objective: Vitals: Temp: [97.1 F (36.2 C)-98.5 F (36.9 C)] 98.5 F (36.9 C) Heart Rate: [93-124] 95 Resp: [10-29] 20 BP: (116-140)/(74-92) 134/78 Speech: Is normal; fluent and spontaneous. Cognition: The patient is oriented to person, place, and time (day and year). Cranial Nerves: At this time, the pupils are equal, round, and reactive to light. Visual fi elds are full to finger confrontation. Extraocular movements are intact. The face is symmetr ic. Hearing is symmetric bilaterally to fingers rubbing. The palate elevates in the midline. Voice is normal. The tongue has normal motion. Tone: Normal muscle tone. Strength: Strength is 5/5 all but no movement of right arm distally more than proximally (s ubtle movement of deltoid and right shoulder). Light Touch and tempr: Impaired right arm and chest to below the nipple level (T4-5). DTR's: Deep tendon reflexes in the upper and lower extremities are diminished bilaterally. No twitching noticed today. A traumatic head. CURRENT MEDICATIONS: Scheduled Meds: baclofen 10 mg Oral Daily enoxaparin 40 mg Subcutaneous Q24H gabapentin 600 mg Oral BID methocarbamol 500 mg Oral TID nortriptyline 25 mg Oral Nightly pantoprazole 40 mg Oral QAM AC piperacillin-tazobactam 3.375 g 3.375 g Intravenous Q8H predniSONE 10 mg Oral Daily with breakfast vancomycin (VANCOCIN) rectal enema 125 mg Rectal Q6H Labs Lab Results Component Value Date WBC 23.73 (H) 04/26/2018 HGB 13.6 04/26/2018 HCT 42.1 04/26/2018 MCV 89.9 04/26/2018 PLT 239 04/26/2018 Lab Results Component Value Date CREATININE 1.8 (H) 04/26/2018 BUN 34 (H) 04/26/2018 NA 138 04/26/2018 K 4.8 04/26/2018 CL 108 04/26/2018 CO2 19 (L) 04/26/2018 Calcium: 7.3 Ionized calcium: 0.82, low. M.6 Images: Brain MRI from 04/20/18: 1. No acute infarction, acute intracranial hemorrhage, cerebral edema pathological mass ef fect. 2. Small nonspecific 6 mm FLAIR hyperintense focus in the right posterior pericallosal reg ion is stable compared to an MRI from 09/14/2016. Given the location this may represent a sm all demyelinating focus however no other lesions are visualized. Cervical MRI 04/19/18: 1. Postsurgical changes are noted with anterior cervical fusion from C5 through C7 with dec ompression laminectomies posteriorly. 2. There is newly developed T2 signal throughout the cervical cord with fusiform swelling. There appears to be potential susceptibility artifact along the paracentral region of the c ord which could reflect some hemorrhage. Differential considerations would include a cord c ontusion versus possible ADEM in the appropriate clinical context. Given that this does not occur along a typical vascular distribution, cord infarct with subsequent hemorrhage is thou ght to be unlikely but not excluded. This appears to extend into the thoracic cord and if i ndicated, further assessment of the thoracic cord could be performed with dedicated MRI. Th e edema is thought to be acute. 3. There is potential impingement of the left C5 and C7 nerve root. Thoracic MRI 04/20/18: 1. The previously visualized abnormal spinal cord edema in the cervical spinal cord is see n extending in the thoracic spinal cord up to the level of T4, below which the cord shows no rmal signal intensity and caliber. This abnormal cord signal appears to be slightly eccentr ic towards the right side and involves the central cord. No abnormal enhancement noted. MRA Spine 04/20/18: There is no enhancement of the cord to suggest active demyelination. Additionally, no enhan cement of the cord or surrounding the cord likely excludes a dural AVF and/or AVM of the cor d as the etiology of hemorrhage. Differential considerations of etiology of the hemorrhage within the cord remain unchanged and may possibly include spontaneous hemorrhage versus pres sure gradient differences status post decompression versus underlying bleeding diathesis. CSF: WBC: 11 RBC: 00953 Total protein: 55 Glucose: 108 CSF Cx: NGX 4 Ds. JUAN: P MARCELL: -ve VDRL: NR MS panel: P HSV: P NMO Abs: P Assessment: 1- Muscle twitching mainly of the left side, possibly due to cervical etiology (ishemia (an eterior spinal artery syndrome?) complicated with hemorrhage), metabolic etiology (renal dys function, low calcium and medications side effects in the setting of renal dysfunction) vs l ess likely due to a seizure . 2- Weakness of right arm with cervical changes including hemorrhage, right > left, unclear etiology at this time. 3- Vague h/o seizure disorder (managed with baclofen per patient report) and MS (previous w ork up did not prove it per his report). 4- Fever, leukocytosis, and sepsis in the setting of infectious colitis. Agree with Dr. Subramanian that it is less likely for demyelinating process to cause acute sympto ms with no cervical spine enhancement, and with intramedullary cervical spinal hemorrhage. C SF with no clear evidence of infectious or inflammatory process at this time (total protein is mildly elevated / nonspecific (bloody fluid). Plan: 1- Telemetry bed with reasonable hydration. 2- Vital signs and neurocheck per ICU routine. Avoid hypotension. 3- Temperature every 4 hours and treat any temperature greater than 100 (37.8). 4- For #1, adjust gabapentin and methocarbamol according to renal function (consult with cl inical pharmacist). R-EEG when possible. Replace electrolytes as needed (low ionized calcium ). 5- For #2, follow on CSF results, he is on prednisone 10 mg daily. 6- #4, per per ID, primary team and surgery. 7- General care including GI and DVT prophylaxis and risk factors modification per primary team. Thank you for allowing us to participate in your patient care. Please call with questions. Case an plan were discussed with patient and primary team. Will follow from distance. Addendum: EEG: Generalized nonspecific cerebral dysfunction. No ictal or interictal discharges. onversion Transacti on, Provider Unknown - 04/26/2018 11:26 AM PSTFormatting of this note might be different fro m the original. Case Management by PARDEEP Dumont at 04/26/18 1121 Author: PARDEEP Dumont Service: (none) Author Type: Oil Well Service Operator Filed: 04/26/18 1773 Date of Service: 04/26/181125 Status: Addendum Damper Maker: PARDEEP Dumont (Oil Well Service Operator) Related Notes: Original Note by PARDEEP Dumont (Oil Well Service Operator) filed at 04/26/18 1446 SEPARATOR INSERTER attended daily rounds with . Per MD, pt may be ready for discharge in 2-3 days. Pt wi ll discharge with a new ileocolostomy back to [facility]. [facility] [address] [place] [address] [facility] number for nurse to nurse report is [phone] / Addendum: CM spoke to Sweetie ([phone]) with [facility] regarding an update on p t. CM provided information. Sweetie asked that pt would work with PT again and that CM follow up with Sweetie closer to dis charge. RN asked to put in new PT orders. PARDEEP Dumont Cheryl nolan, RAHEL Feliciano - 04/26/2018 9:48 AM PSTFormatting of this note might be different from th e original. Progress Notes by RAHEL Putnam at 04/26/18 0948 Author: RAHEL Putnam Service: Gastroenterology Author Type: Physician Syeda t - Certified Filed: 04/26/18 1256 Date of Service: 04/26/18 0948 Status: Attested Damper Maker: RAHEL Putnam (Physician Cloth Examiner Machine - Certified) Cosigner: Elías alas MD at 04/26/18 1601 Attestation signed by Elías Joshi MD at 04/26/18 1601 Above note is reviewed and I agree with the assessment and plan as documented. I performed an interview and personally examined the patient. If any changes were needed, the note was updated and changes were discussed with the author. Feeling better today. Elías Joshi MD [facility] 04/26/2018 [facility] Service: Gastroenterology Consult Progress Note Hospital Day: LOS: 7 days SUBJECTIVE Patient Summary: Pt is a 42 yo male who was admitted to the hospital 04/19 after Poste rior Cervical Laminectomy. Post operatively he was noted to have new neurologic deficits. This was being treated. Patient developed fever 04/23 along with tachycardia and abdomina l pain. In order to evaluate, a CT abdomen was performed which showed diffuse thickening o f the colon. No evidence of obstruction or pneumatosis. Lactate was not elevated. Elida ent reports some abdominal pain. Has been getting antibiotics. No history of GI problems . Positive for c. Diff. Treated with antibiotics. Events Overnight: Worsening abdominal distention and hypotension after seen yesterday . Suspected toxic megacolon. Colorectal surgery saw and took to OR for total colectomy with end ileocolostomy. Feels much better today, says pain is controlled. Has ostomy with some re d discharge but no stool. Scheduled Medications baclofen 10 mg Oral Daily enoxaparin 40 mg Subcutaneous Q24H gabapentin 600 mg Oral BID methocarbamol 500 mg Oral TID nortriptyline 25 mg Oral Nightly pantoprazole 40 mg Oral QAM AC piperacillin-tazobactam 3.375 g 3.375 g Intravenous Q8H predniSONE 10 mg Oral Daily with breakfast vancomycin (VANCOCIN) rectal enema 125 mg Rectal Q6H Continuous Infusions lactated ringers 150 mL/hr at 04/26/18 0320 PRN Medications acetaminophen OR acetaminophen, calcium carbonate, diazePAM, melatonin, morphine OR morphine OR morphine, naloxone, nystatin, nystatin, ondansetron OR ondansetron, oxy CODONE OR oxyCODONE OR oxyCODONE, petrolatum, polyethylene glycol, saline lock IV - when tolerating PO fluids AND sodium chloride (PF), sodium chloride 0.9 %, zolpidem OBJECTIVE Vital Signs: BP 130/85 (BP Location: Left upper arm) | Pulse 100 | Temp 98.1 F (36.7 C) (Oral) | Resp 18 | Ht 1.803 m (5' 11") | Wt 95 kg (209 lb 6.4 oz) | SpO2 98% | BMI 29.21 kg/m GENERAL: Well developed, well nourished, in no distress. Appears approximately stated age. HEENT: Normocephalic, atraumatic. EYES: PERRL, sclerae anicteric, no xanthelsasmas MOUTH: Oral mucosae moist, dentition adequate, no lesions noted. NECK: No JVD, lymphadenopathy, thyromegaly, bruits. Carotid pulses are 2+ bilaterally LUNGS: Clear bilaterally, with no rales, rhonchi or wheezing noted, respirations unlabored HEART: Nondisplaced PMI, regular rate and rhythm, S1, S2 normal. No murmurs, rubs or gallop s noted. ABDOMEN: Soft, mildly tender, nondistended. Ostomy in place. No organomegaly, masses or bru its. Bowel sounds are normal in all 4 quadrants. The abdominal aortic pulsation is not palpa ble. EXTREMITIES: no clubbing, cyanosis or edema. Pulses palpable and equal distally. SKIN: Warm and dry, capillary refill is normal, no lesions. No jaundice. NEUROLOGIC: Awake, alert and oriented x 3. No focal motor deficits. PSYCHIATRIC: Appropriate, affect appears normal DATA Lab Results Component Value Date WBC 23.73 (H) 04/26/2018 HGB 13.6 04/26/2018 HCT 42.1 04/26/2018 MCV 89.9 04/26/2018 PLT 239 04/26/2018 Lab Results Component Value Date CREATININE 1.8 (H) 04/26/2018 Lab Results Component Value Date INR 1.0 04/19/2018 PROBLEM LIST Principal Problem: Sepsis (HCC) Active Problems: Cervical myelopathy (HCC) S/P laminectomy Infectious colitis ASSESSMENT & PLAN Abnormal CT of colon Abdominal pain - Patient was admitted to the hospital for neurologic issues - Had some fever and abdominal pain - CT now shows diffuse thickening of the colon - C. Diff returned as positive. - Started on oral vancomycin and IV flagyl. Wasn't responding to therapy and on 04/25 devel oped hypotension, tachycardia, abdominal distention as toxic megacolon was suspected went em ergently to OR for total colectomy. - Overall, much improved today. Feels better. - Recommend continued medical management with IV antibiotics per ID recommendation [facility] 04/26/2018 Mundo Peng MD - 04/26/2018 8:58 AM PST Progress Notes by Mundo Ghosh MD at 04/26/18857 Author: Mundo Ghosh MD Service: Hospitalist Author Type: Physician Filed: 04/26/18 1113 Date of Service: 04/26/18857 Status: Signed Damper Maker: Mundo Ghosh MD (Physician) [facility] Service: Hospitalist Progress Note Pt: Matthias Lambert AGE/SEX: 42 y.o. male ROOM: [address] [place] [address] : 1975 PCP: Per PT None ADMIT DATE: 04/19/2018 TODAY'S DATE: 04/26/2018 Hospital Day/Hospital Course: LOS: 7 days Per ICU 42 y.o.malewith a Diagnoses of Cervical radiculopathy at C6, Cervical radiculopathy at C7, and DDD (degenerative disc disease) underwent CERVICAL-LAMINECTOMY POSTERIOR (N/A) - Pos terior Cervical Laminectomy, Foraminotomy five to seven today. Intraoperatively had h some hypotension requiring vasopressin otherwise uncomplicated per r eport. Post op, he was noted to have no movement of right arm or fingers, some muscle twitch ing noted in the forearm. As well severe paresthesias in b/l UE, L>R and from thigh upwards over entire trunk. MRI done emergently showed following findings : There is newly developed T2 signal throughout the cervical cord with fusiform swelling. There appears to be potential susceptibility artifact along the paracentral region of the cord which could reflect some hemorrhage. Differential considerations would include a cord contusion versus possible ADEM in the appropriate clinical context. Given that this does not occur along a typical vascular distribution, cord infarct with subsequent hemorrhage is thought to be unlikely but not excluded. This appears to extend into the thoracic cord and if indicated, further assessment of the thoracic cord could be performed with dedicated MRI. The edema is thought to be acute. Patient is admitted to ICU for serial neuro checks and active management of BP for cord per fusion" ICU Timeline: 04/19/2018: ICU admission secondary to need for serial neuro checks due to acute neuro c hanges and paralysis 04/20: Slight improvement in sensation in LUE; remains flaccid in RUE; LP performed. Stool came back positive for C. difficile and he becomes septic. On April 25 he went to or emergently toxic megacolon with peritonitis and status post Total abdominal colectomy and creation of an end loop ileo-colostomy SUBJECTIVE: Patient seen and examine. SP Total abdominal colectomy and creation of an end loop ileo-col ostomy. During much better today. Fever curve has improved. Abdominal pain is improved. Con tinue to have a weakness in the right arm. Still having a numbness. Can Not move his right a rm. He is moving his right leg. Still having the diarrhea. No chest pain, SOB, NARVAEZ. No cough on recumbency. Had no orthopnea or PND. Still feeling tired and fatigued. No dizziness or lightheadedness. Scheduled Medications: baclofen 10 mg Oral Daily enoxaparin 40 mg Subcutaneous Q24H gabapentin 600 mg Oral BID methocarbamol 500 mg Oral TID metronidazole 500 mg Intravenous Q8H nortriptyline 25 mg Oral Nightly pantoprazole 40 mg Oral QAM AC piperacillin-tazobactam 3.375 g 3.375 g Intravenous Q8H predniSONE 10 mg Oral Daily with breakfast vancomycin 500 mg Oral 4 times per day Continuous Infusions lactated ringers 150 mL/hr at 04/26/18 0320 PRN Medications acetaminophen OR acetaminophen, calcium carbonate, diazePAM, melatonin, morphine OR morphine OR morphine, naloxone, nystatin, nystatin, ondansetron OR ondansetron, oxy CODONE OR oxyCODONE OR oxyCODONE, petrolatum, polyethylene glycol, saline lock IV - when tolerating PO fluids AND sodium chloride (PF), sodium chloride 0.9 %, zolpidem Allergy: No Known Allergies OBJECTIVE: Vitals: Patient Vitals for the past 24 hrs: BP Temp Temp src Pulse Resp SpO2 04/26/18 0820 130/85 98.1 F (36.7 C) Oral 100 18 98 % 04/26/18 0320 134/82 97.1 F (36.2 C) Axillary 93 16 100 % 04/25/18 2319 (!) 140/91 97.5 F (36.4 C) Axillary 93 17 97 % 04/25/182008 - 98.1 F (36.7 C) Axillary - 16 - 04/25/18 1935 137/80 - - 110 16 95 % 04/25/18 1930 134/79 - - 112 21 94 % 04/25/18 192 132/82 - - 112 24 97 % 04/25/18 192 134/83 - - 110 19 97 % 04/25/181914 137/83 - - 111 22 97 % 04/25/18 191 127/84 - - 112 26 97 % 04/25/18 190 (!) 117/92 - - 115 20 96 % 04/25/18 190 116/89 - - 117 16 96 % 04/25/18 185 128/89 - - 114 23 96 % 04/25/181852 - - - 117 18 96 % 04/25/181849 - - - 115 17 95 % 04/25/18 184 122/79 - - 117 17 96 % 04/25/18 1840 132/82 - - 118 16 90 % 04/25/18 1835 127/77 - - 119 10 92 % 04/25/18 1830 127/74 - - 121 19 94 % 04/25/18 1826 122/75 - - 124 11 93 % 04/25/18 1825 119/77 - - 124 29 94 % 04/25/18 1823 119/77 97.8 F (36.6 C) Temporal 124 10 94 % 04/25/18 1300 119/67 - - 127 - - 04/25/18 1200 114/57 - - 115 - - 04/25/18 1145 114/55 98.2 F (36.8 C) Oral 120 20 95 % 04/25/18 1100 100/59 - - 116 - - 04/25/18 1000 92/52 - - 121 - - 04/25/18 0900 94/61 - - 130 - - I&O Detailed Table: Intake/Output Summary (Last 24 hours) at 04/26/18 0858 Last data filed at 04/26/18 0615 Gross per 24 hour Intake 4420 ml Output 2860 ml Net 1560 ml Patient Vitals for the past 96 hrs: Weight 04/25/18 0350 95 kg (209 lb 6.4 oz) Hemodynamics Last 24hrs: Physical Examination: Constitutional: He is looking better. More awake and talking to me. HEENT: Neck supple, no JVD, non icteric sclera. Cardiovascular: Normal rate S1, S2 Pulmonary/Chest: Chest clear b/l Abdominal: Abdomen is soft. Tender today at the surgical site Extremeties/Musculoskeletal: Not having any edema. Neurological: Alert and oriented to person, place, and time. Power is 1 out of 5 in the ri ght arm. Decreased sensation. Power is 5 out of 5 in the left arm and left leg. Skin: Skin is warm and dry. No rash noted. No erythema. No pallor. Psychiatric: Has a normal mood and affect. Behavior is normal. Judgment normal. Not suicida l LABS: Recent Labs Lab 04/26/18 0401 04/25/18 0406 04/24/18 0428 WBC 23.73* 24.61* 23.93* HGB 13.6 13.7 13.3 HCT 42.1 42.5 41.1 PLT 239 280 290 Recent Labs Lab 04/26/18 0401 04/25/18 0406 04/24/18 0428 NA 138 134* 135 K 4.8 4.2 4.1 CL 108 102 104 CO2 19* 20* 22* BUN 34* 27* 20 CREATININE 1.8* 2.0* 1.0 Phosphorus: Lab Results Component Value Date PHOS 3.8 04/26/2018 Recent Labs Lab 04/26/18 0401 04/25/18 0406 04/24/18 0428 MG 2.6* 2.3 2.2 Results Procedure Component Value Units Date/Time HSV 1/2 detect/diff by rtpcr : for antigen testing on CSF, newborns & immuno-compromised. [[id number]] Collected: 04/20/18 1600 Specimen: Cerebrospinal Fluid from CSF Updated: 04/25/18 210 SOURCE CEREBROSPINAL FLUID HSV DNA Type 1 Negative HSV DNA Type 2 Negative Anaerobic Culture W/Gram Stain [[id number]] Collected: 04/25/18 1635 Specimen: Abdomen Updated: 04/25/18 202 VDRL, CSF [[id number]] Collected: 04/20/18 1600 Specimen: Cerebrospinal Fluid from Lumbar Puncture Updated: 04/25/18 1210 VDRL Quant, CSF Non Reactive Fecal occult blood (in house) [[id number]] Collected: 04/24/18 1405 Specimen: Stool from Stool Updated: 04/25/18 0817 Fecal Occult Blood NEGATIVE C Difficile Only [[id number]] (Abnormal) Collected: 04/24/18 1405 Specimen: Stool Updated: 04/25/18 0817 GDH ANTIGEN POSITIVE (A) TOXIN A & B POSITIVE (A) C DIFF INTERPRETATION Positive for toxigenic C.difficile, active toxin present. Urine culture [[id number]] Collected: 04/23/18 1251 Specimen: Urine from Urine, Catheter Updated: 04/24/18 1949 Specimen Description CATHETERIZED URINE CULTURE NO GROWTH Blood Culture Set 2 [[id number]] Collected: 04/23/18 0858 Specimen: Blood from Blood, peripheral draw Updated: 04/24/18 1214 Specimen Description BLOOD, PERIPHERAL DRAW SPECIAL REQUESTS LWRIST CULTURE NO GROWTH AT THIS TIME Blood Culture Set 1 [[id number]] Collected: 04/23/18 0851 Specimen: Blood from Blood, peripheral draw Updated: 04/24/18 1214 Specimen Description BLOOD, PERIPHERAL DRAW SPECIAL REQUESTS RAC CULTURE NO GROWTH AT THIS TIME CSF culture w/gram stain [[id number]] Collected: 04/20/18 1600 Specimen: Cerebrospinal Fluid from CSF Updated: 04/24/18 0816 Specimen Description CEREBROSPINAL FLUID GRAM STAIN 3+ GRAM STAIN WBC'S SEEN GRAM STAIN NO ORGANISMS SEEN CULTURE NO GROWTH 4 DAYS Diagnostic Imaging: Impressions only: Mri Brain With And Without Contrast Result Date: 04/20/2018 1. No acute infarction, acute intracranial hemorrhage, cerebral edema pathological mass ef fect. 2. Small nonspecific 6 mm FLAIR hyperintense focus in the right posterior pericallosa l region is stable compared to an MRI from 09/14/2016. Given the location this may represent a small demyelinating focus however no other lesions are visualized. Clinical correlation is recommended. Signed by: MD Arin, Nubia Sign Date/Time: 04/20/2018 6:56 AM Mri Cervical Spine Without Contrast Result Date: 04/19/2018 1. Postsurgical changes are noted with anterior cervical fusion from C5 through C7 with dec ompression laminectomies posteriorly. 2. There is newly developed T2 signal throughout the c ervical cord with fusiform swelling. There appears to be potential susceptibility artifact along the paracentral region of the cord which could reflect some hemorrhage. Differential considerations would include a cord contusion versus possible ADEM in the appropriate clinic al context. Given that this does not occur along a typical vascular distribution, cord infar ct with subsequent hemorrhage is thought to be unlikely but not excluded. This appears to e xtend into the thoracic cord and if indicated, further assessment of the thoracic cord could be performed with dedicated MRI. The edema is thought to be acute. 3. There is potential i mpingement of the left C5 and C7 nerve root. 4. Critical result: Imaging findings are discus sed with the ordering provider by telephone at 1:25 p.m.. Signed by: Darryl Pat Sign Da te/Time: 04/19/2018 1:30 PM Mri Thoracic Spine With And Without Contrast Result Date: 04/20/2018 1. The previously visualized abnormal spinal cord edema in the cervical spinal cord is see n extending in the thoracic spinal cord up to the level of T4, below which the cord shows no rmal signal intensity and caliber. This abnormal cord signal appears to be slightly eccentr ic towards the right side and involves the central cord. No abnormal enhancement noted. Sig michelle by: MD Arin, Nubia Sign Date/Time: 04/20/2018 7:02 AM Mra Spine With And Without Contrast Result Date: 04/20/2018 1. There is no enhancement of the cord to suggest active demyelination. Additionally, no en hancement of the cord or surrounding the cord likely excludes a dural AVF and/or AVM of the cord as the etiology of hemorrhage. Differential considerations of etiology of the hemorrha ge within the cord remain unchanged and may possibly include spontaneous hemorrhage versus p ressure gradient differences status post decompression versus underlying bleeding diathesis. Signed by: Darryl Pat Sign Date/Time: 04/20/2018 2:52 PM X-ray C-arm Fluoro Up To 1 Hour Result Date: 04/19/2018 Intraoperative fluoroscopic assessment. Signed by: Jose C Russell Sign Date/Time: 04/19/2018 2 :42 PM PROBLEM LIST Principal Problem: Sepsis (HCC) Active Problems: Cervical myelopathy (HCC) S/P laminectomy Infectious colitis Resolved Problems: * No resolved hospital problems. * ASSESSMENT & PLAN 42 y.o.malewith a Diagnoses of Cervical radiculopathy at C6, Cervical radiculopathy at C7, and DDD (degenerative disc disease) underwent CERVICAL-LAMINECTOMY POSTERIOR (N/A) - Pos terior Cervical Laminectomy, Foraminotomy five to seven today. Intraoperatively had h some hypotension requiring vasopressin otherwise uncomplicated per r eport. Post op, he was noted to have no movement of right arm or fingers, some muscle twitch ing noted in the forearm. Active Problems: Fever with sepsis with infectious colitis due to C. difficile with toxic megacolon and sally tonitis: On April 25, 2011 abdominal distention, fever, tachycardia and hypotension secondary to toxic megacolon. Went to the operating room emergently. SP Total abdominal colectomy and c reation of an end loop ileo-colostomy with operating finding consistent with toxic megacolon and peritonitis. Fever curve has improved. White cell count is getting better.. Stool is po sitive for C. difficile. CT finding consistent with infectious colitis. GI has already evalu ated the patient. I still Recommend infectious diseases consultation. Currently vancomycin day #3 oral also received IV Flagyl that has been discontinued. Now on IV Zosyn day #4 His blood pressure has improved. Cervical myelopathy (HCC) S/P laminectomy. Postoperatively he was hypotensive. He was noted to have a weakness on the right arm and finger with muscle twitching. Decreased sensation in the abdominal wall as well. More likely related to ADEM versus contusion versus infarct. On 04/25/[address] Megha braswell she is not inclined towards demyelinating disease. Blood pressure is better now. Resolved Problems: * No resolved hospital problems. * Patient diagnosed with: , and I agree with the following nutritional recommendations: MUNDO GHOSH MD, FACP 04/26/2018 8:58 AM Dictation software, K[employer], used which may contain error for similar sounding words even af ter review. Personal communication requested for any clarification. Portions of this chart may have been copied from previous notes for continuity of care purp ose Jam Copeland ARNP - 04/26/2018 8:42 AM PST . Progress Notes by DELANEY Cherry at 04/26/18841 Author: DELANEY Cherry Service: General Surgery Author Type: Nurse Alek urena Filed: 04/26/1845 Date of Service: 04/26/18841 Status: Signed Damper Maker: DELANEY Cherry (Nurse Practitioner) [facility] Service: Colon & Rectal Surgery Progress Note Hospital Day: LOS: 7 days Post-Op Day: 1 Day Post-Op SUBJECTIVE Patient Summary: Total colectomy end ileocolostomy Events Overnight: None acute. Pt is tolerating a CLD without N/V. His ostomy is not passing any gas. Deneis chest pain and SOB. C/O mild abdominal pain at the incision. Amb ulatory. Vitals and labs stable. Scheduled Medications baclofen 10 mg Oral Daily enoxaparin 40 mg Subcutaneous Q24H gabapentin 600 mg Oral BID methocarbamol 500 mg Oral TID metronidazole 500 mg Intravenous Q8H nortriptyline 25 mg Oral Nightly pantoprazole 40 mg Oral QAM AC piperacillin-tazobactam 3.375 g 3.375 g Intravenous Q8H predniSONE 10 mg Oral Daily with breakfast vancomycin 500 mg Oral 4 times per day Continuous Infusions lactated ringers 150 mL/hr at 04/26/18 0320 PRN Medications acetaminophen OR acetaminophen, calcium carbonate, diazePAM, melatonin, morphine OR morphine OR morphine, naloxone, nystatin, nystatin, ondansetron OR ondansetron, oxy CODONE OR oxyCODONE OR oxyCODONE, petrolatum, polyethylene glycol, saline lock IV - when tolerating PO fluids AND sodium chloride (PF), sodium chloride 0.9 %, zolpidem OBJECTIVE Vital Signs: BP 130/85 (BP Location: Left upper arm) | Pulse 100 | Temp 98.1 F (36.7 C) (Oral) | Resp 18 | Ht 1.803 m (5' 11") | Wt 95 kg (209 lb 6.4 oz) | SpO2 98% | BMI 29.21 kg/m Patient Vitals for the past 24 hrs: BP Temp Temp src Pulse Resp SpO2 04/26/18 0820 130/85 98.1 F (36.7 C) Oral 100 18 98 % 04/26/18 0320 134/82 97.1 F (36.2 C) Axillary 93 16 100 % 04/25/182318 (!) 140/91 97.5 F (36.4 C) Axillary 93 17 97 % 04/25/182008 - 98.1 F (36.7 C) Axillary - 16 - 04/25/18 1935 137/80 - - 110 16 95 % 04/25/18 1930 134/79 - - 112 21 94 % 04/25/181924 132/82 - - 112 24 97 % 04/25/18 1920 134/83 - - 110 19 97 % 04/25/18 191 137/83 - - 111 22 97 % 04/25/18 1910 127/84 - - 112 26 97 % 04/25/18 190 (!) 117/92 - - 115 20 96 % 04/25/18 1900 116/89 - - 117 16 96 % 04/25/18 1855 128/89 - - 114 23 96 % 04/25/18 1853 - - - 117 18 96 % 04/25/18 1850 - - - 115 17 95 % 04/25/18 1845 122/79 - - 117 17 96 % 04/25/18 1840 132/82 - - 118 16 90 % 04/25/18 1835 127/77 - - 119 10 92 % 04/25/18 1830 127/74 - - 121 19 94 % 04/25/18 1826 122/75 - - 124 11 93 % 04/25/18 1825 119/77 - - 124 29 94 % 04/25/18 1823 119/77 97.8 F (36.6 C) Temporal 124 10 94 % 04/25/18 1300 119/67 - - 127 - - 04/25/18 1200 114/57 - - 115 - - 04/25/18 1145 114/55 98.2 F (36.8 C) Oral 120 20 95 % 04/25/18 1100 100/59 - - 116 - - 04/25/18 1000 92/52 - - 121 - - 04/25/18 0900 94/61 - - 130 - - 04/25/18 0856 94/61 - - 127 - - Physical Exam DATA CBC: Lab Results Component Value Date WBC 23.73 (H) 04/26/2018 RBC 4.68 04/26/2018 HGB 13.6 04/26/2018 HCT 42.1 04/26/2018 MCV 89.9 04/26/2018 MCH 29.1 04/26/2018 MCHC 32.3 04/26/2018 RDW 44.6 04/26/2018 PLT 239 04/26/2018 MPV 8.3 04/26/2018 DIFFTYPE MANUAL 04/26/2018 CMP: Lab Results Component Value Date NA 138 04/26/2018 K 4.8 04/26/2018 CL 108 04/26/2018 CO2 19 (L) 04/26/2018 ANIONGAP 16 04/26/2018 GLUF 165 (H) 04/26/2018 BUN 34 (H) 04/26/2018 CREATININE 1.8 (H) 04/26/2018 BCR 19 04/26/2018 CA 7.3 (L) 04/26/2018 EGFR 41 (L) 04/26/2018 Magnesium: Lab Results Component Value Date MG 2.6 (H) 04/26/2018 Phosphorus: Lab Results Component Value Date PHOS 3.8 04/26/2018 PROBLEM LIST Principal Problem: Sepsis (HCC) Active Problems: Cervical myelopathy (HCC) S/P laminectomy Infectious colitis ASSESSMENT & PLAN POD # 1 from a Total colectomy end ileocolostomy who is awaiting a return of bowel function . -Encourage ambulation, -PT to eval and treat -Continue CLD, coffee, tea and ensure only please -D/C brown -Continue IV abx per ID recommendations A/P discussed with Dr. Cardenas. Disposition: Code Status: Full Code DELANEY CHERRY 04/26/2018 onversion Olson saction, Provider Unknown - 04/26/2018 6:49 AM PSTFormatting of this note might be differen t from the original. Nurse Progress Note by Antwon Barillas RN at 04/26/18648 Author: Antwon Barillas RN Service: (none) Author Type: Registered Nurse Filed: 04/27/1849 Date of Service: 04/26/18648 Status: Signed Damper Maker: Antwon Barillas RN (Registered Nurse) Chart check complete. onver antonio Transaction, Provider Unknown - 04/25/2018 8:10 PM PST Nurse Progress Note by Gisela Oneil RN at 04/25/182009 Author: Gisela Oneil RN Service: (none) Author Type: Registered Nurse Filed: 04/25/182011 Date of Service: 04/25/182009 Status: Signed Damper Maker: Gisela Oneil RN (Registered Nurse) Patient hesitant to follow commands. Patient stated that he was in pain and started making wheezing sounds. Lungs were clear and auscultated throat with adequate air moving noted. José Miguel d patient that if he kept breathing that way he would not get pain medication. Patient stopp ed breathing that way immediately. Fentanyl given and patient did not display respiratory be havior again. Irene Monreal ARNP - 04/25/2018 3:21 PM PSTFormatting of this note might be different from t radha original. Progress Notes by DELANEY Hudson at 04/25/18 1521 Author: DELANEY Hudson Service: Mortar Mixer Author Type: Advanced Registered Nu rse Practitioner Filed: 04/25/18 173 Date of Service: 04/25/181520 Status: Signed Damper Maker: DELANEY Hudson (Advanced Registered Nurse Practitioner) [facility] Service: Mortar Mixer Progress Note Matthias Lambert 42 y.o. Hospital Day: LOS: 6 days Post-Op Day: 1 Day Post-Op Consulting Physicians Treatment Team: Consulting Physician: Mundo Ghosh MD Consulting Physician: Wing Ashok Chaudhry MD Consulting Physician: Samy Cardenas MD Consulting Physician: Elías Joshi MD Consulting Physician: Oracio Villaseñor MD Admitting Provider: Douglas Logan DO SUBJECTIVE Patient Summary: From Dr. Romero's consult note 04/19/2018: "42 y.o.malewith a Diagnoses of Cervical radiculopathy at C6, Cervical radiculopathy at C7, and DDD (degenerat aguila disc disease) underwent CERVICAL-LAMINECTOMY POSTERIOR (N/A) - Posterior Cervical Hever ctomy, Foraminotomy five to seven today. Intraoperatively had h some hypotension requiring vasopressin otherwise uncomplicated per r eport. Post op, he was noted to have no movement of right arm or fingers, some muscle twitch ing noted in the forearm. As well severe paresthesias in b/l UE, L>R and from thigh upwards over entire trunk. MRI done emergently showed following findings : There is newly developed T2 signal throughout the cervical cord with fusiform swelling. There appears to be potential susceptibility artifact along the paracentral region of the cord which could reflect some hemorrhage. Differential considerations would include a cord contusion versus possible ADEM in the appropriate clinical context. Given that this does not occur along a typical vascular distribution, cord infarct with subsequent hemorrhage is thought to be unlikely but not excluded. This appears to extend into the thoracic cord and if indicated, further assessment of the thoracic cord could be performed with dedicated MRI. The edema is thought to be acute. Patient is admitted to ICU for serial neuro checks and active management of BP for cord per fusion" ICU Timeline: 04/19/2018: ICU admission secondary to need for serial neuro checks due to acute neuro c hanges and paralysis 04/20: Slight improvement in sensation in LUE; remains flaccid in RUE; LP performed. 04/21: Hemodynamically stable with improvement in sensation, was moved out to surgical fl oor 04/25: ICU asked to consult for hypotension in setting of cdiff, diarrhea, possible kar- colon. He was started on oral vanco and IV flagyl Events Overnight: SCHEDULED MEDICATIONS [START ON 04/26/2018] baclofen 10 mg Oral Daily enoxaparin 40 mg Subcutaneous Q24H gabapentin 900 mg Oral BID methocarbamol 500 mg Oral TID metronidazole 500 mg Intravenous Q8H nortriptyline 25 mg Oral Nightly pantoprazole 40 mg Oral QAM AC piperacillin-tazobactam 4.5 g 4.5 g Intravenous Once Followed by piperacillin-tazobactam 3.375 g 3.375 g Intravenous Q8H predniSONE 10 mg Oral Daily with breakfast sodium bicarbonate buffer 5 mL Infiltration Once vancomycin 500 mg Oral 4 times per day CONTINUOUS INFUSIONS sodium chloride (IV) 110 mL/hr at 04/25/18 1100 OBJECTIVE VITAL SIGNS Temp: [98.2 F (36.8 C)-102.6 F (39.2 C)] 98.2 F (36.8 C) Heart Rate: [115-130] 127 Resp: [18-22] 20 BP: (92-142)/(52-94) 119/67 Intake/Output Summary (Last 24 hours) at 04/25/18 1521 Last data filed at 04/25/18 1151 Gross per 24 hour Intake 800 ml Output 1000 ml Net -200 ml EXAM GEN:awake, alert, oriented x3, NAD; conversant with clear speech. NEURO:PERRL, EOMI, no facial asymmetry, RUE 1/5 with some tingling in arm, LUE 5/5. No de ficits in BLE. HEENT:sclerae clear, nonicteric, oral mmm NECK: trachea midline CV:tachycardic, S1/S2, no murmur, rub or gallop, peripheral pulses palpable, cap refill carmelita sk LUNGS: clear b/l, no wheezing, rales or rhonchi, symmetric chest expansion, even/unlabored respirations on room air. ABD:rounded, moderately distended, very painful to touch diffusely EXTR:no edema, clubbing or cyanosis SKIN:warm, dry, no rash or mottling LINES: steph nickerson (04/19) DATA Recent Labs Lab 04/25/18 0406 04/24/18 0428 04/23/18 0415 04/19/18 0738 WBC 24.61* 23.93* 28.19* < > 7.19 RBC 4.74 4.60 5.04 < > 4.81 HGB 13.7 13.3 14.7 < > 14.3 HCT 42.5 41.1 45.0 < > 42.5 MCV 89.7 89.3 89.2 < > 88.5 MCH 28.9 28.8 29.1 < > 29.7 MCHC 32.2 32.3 32.6 < > 33.6 RDW 43.3 43.8 41.6 < > 42.9 PLT 280 290 307 < > 334 MPV 8.4 8.0 7.8 < > 6.9 BANDSABS 7.88* 5.26* 2.82* < > -- NEUTROABS -- -- -- -- 4.91 LYMPHSABS -- -- -- -- 1.30 MONOSABS -- -- -- -- 0.63 BASOSABS -- -- -- -- 0.04 EOSABS -- -- -- -- 0.31 MORPH RBC AND PLT MORPHOLOGY APPEAR NORMAL RBC AND PLT MORPHOLOGY APPEAR NORMAL RBC AND PLT MORPHOLOGY APPEAR NORMAL < > -- < > = values in this interval not displayed. Recent Labs Lab 04/25/18 0406 04/24/18 0428 04/23/18 0415 NA 134* 135 139 K 4.2 4.1 3.9 CL 102 104 104 CO2 20* 22* 25 ANIONGAP 16 13 14 GLUF 85 114* 116* BUN 27* 20 20 CREATININE 2.0* 1.0 1.0 BCR 14 20 20 CA 7.7* 7.2* 8.3* EGFR 36* >60 >60 PHOS 3.2 2.3 2.5 MG 2.3 2.2 2.2 Recent Labs Lab 04/19/18 0738 INR 1.0 IMAGING X-ray Abdomen 1 View Result Date: 04/25/2018 Air-filled small and large bowel seen in the abdomen and pelvis without evidence of pneumat osis intestinalis or pneumoperitoneum. Signed by: Otis Hinton Sign Date/Time: 04/25/2018 2:45 PM Mri Brain With And Without Contrast Result Date: 04/20/2018 1. No acute infarction, acute intracranial hemorrhage, cerebral edema pathological mass ef fect. 2. Small nonspecific 6 mm FLAIR hyperintense focus in the right posterior pericallosa l region is stable compared to an MRI from 09/14/2016. Given the location this may represent a small demyelinating focus however no other lesions are visualized. Clinical correlation is recommended. Signed by: MD Arin, Nubia Sign Date/Time: 04/20/2018 6:56 AM Mri Cervical Spine Without Contrast Result Date: 04/19/2018 1. Postsurgical changes are noted with anterior cervical fusion from C5 through C7 with dec ompression laminectomies posteriorly. 2. There is newly developed T2 signal throughout the c ervical cord with fusiform swelling. There appears to be potential susceptibility artifact along the paracentral region of the cord which could reflect some hemorrhage. Differential considerations would include a cord contusion versus possible ADEM in the appropriate clinic al context. Given that this does not occur along a typical vascular distribution, cord infar ct with subsequent hemorrhage is thought to be unlikely but not excluded. This appears to e xtend into the thoracic cord and if indicated, further assessment of the thoracic cord could be performed with dedicated MRI. The edema is thought to be acute. 3. There is potential i mpingement of the left C5 and C7 nerve root. 4. Critical result: Imaging findings are discus sed with the ordering provider by telephone at 1:25 p.m.. Signed by: Darryl Pat Da te/Time: 04/19/2018 1:30 PM Mri Thoracic Spine With And Without Contrast Result Date: 04/20/2018 1. The previously visualized abnormal spinal cord edema in the cervical spinal cord is see n extending in the thoracic spinal cord up to the level of T4, below which the cord shows no rmal signal intensity and caliber. This abnormal cord signal appears to be slightly eccentr ic towards the right side and involves the central cord. No abnormal enhancement noted. Sig michelle by: MD Arin, Nubia Sign Date/Time: 04/20/2018 7:[address] Abdomen Pelvis With Iv Contrast Result Date: 04/23/2018 1. Circumferential wall thickening of the entire colon is present. Findings may reflect col itis versus inflammatory bowel disease. No dilated loops of large bowel are present and the re is no evidence of pneumatosis to suggest ischemic bowel. Signed by: Darryl Pat Sign Date/Time: 04/23/2018 12:08 PM Xr Chest 1 View Result Date: 04/23/2018 Hypoventilatory chest x-ray. No acute cardiopulmonary findings.) Signed by: MD Skinny, Sherrell louise Sign Date/Time: 04/23/2018 10:33 AM Mra Spine With And Without Contrast Result Date: 04/20/2018 1. There is no enhancement of the cord to suggest active demyelination. Additionally, no en hancement of the cord or surrounding the cord likely excludes a dural AVF and/or AVM of the cord as the etiology of hemorrhage. Differential considerations of etiology of the hemorrha ge within the cord remain unchanged and may possibly include spontaneous hemorrhage versus p ressure gradient differences status post decompression versus underlying bleeding diathesis. Signed by: Darryl Pat Sign Date/Time: 04/20/2018 2:52 PM X-ray C-arm Fluoro Up To 1 Hour Result Date: 04/19/2018 Intraoperative fluoroscopic assessment. Signed by: Jose C Russell Sign Date/Time: 04/19/2018 2 :42 PM PROBLEM LIST Principal Problem: Sepsis (HCC) Active Problems: Cervical myelopathy (HCC) S/P laminectomy Infectious colitis Resolved Problems: * No resolved hospital problems. * ASSESSMENT & PLAN NEURO: Cervical myelopathy with cervical and thoracic spinal cord edema s/p cervical laminectom y cause unclear: MRI findings concerning for ADEM vs contusion vs infarct. Neurology following, remains on daily prednisone CSF with high protein and glucose, high RBC count. Awaiting final results. Continue post operative management per neurosurgery recommendations. Neuro checks per protocol. Pain management: continue narcotics plus gabapentin and muscle relaxants. CV: Continue to monitor hemodynamics. Maintain MAP >80 per NS recommendations. Has not required vasopressor support. PULM: On room air. Protecting airway GI/NUTRITION: Infectious colitis - on oral vanco and flagyl. Dr. Cardenas has been consulted and elida ent to go to the OR now for ex lap and possible colectomy/ostomy. RENAL/LYTES:. Urinary retention most likely secondary to central cord syndrome; continue brown cathete r. Acute kidney injury - could be medication induced, will decrease gabapentin dosing, comb ined with prerenal due to fluid losses. Monitor closely Renally dose medications, avoid nephrotoxins. Monitor electrolytes and replace per protocol Follow I/O ID: Cdiff colitis, on oral vancomycin and IV flagyl. ID consulted. Will check procal and lac garcia. HEME: Leukocytosis due to infection. Monitor daily CBC ENDO: Blood sugar goal 80-180. MUSC: PT/OT. PROPHYLAXIS: Stress ulcer prophylaxis: NA DVT prophylaxis: SCD, enoxaparin VAP: NA Disposition: To OR with Dr. Cardenas, will likely return to the ICU. Will continue to fol low. Code Status: Full Code *Please bill 40 minutes of high complexity time spent evaluating the patient, reviewing the data and formulating a plan exclusive of all other procedures. DELANEY Hudson 04/25/2018 onversion Trans action, Provider Unknown - 04/25/2018 3:02 PM PST Progress Notes by Nury Cordoba RPH at 04/25/18 1505 Author: Nury Cordoba RPH Service: Pharmacy Author Type: Pharmacist Filed: 04/25/18 1508 Date of Service: 04/25/181501 Status: Signed Damper Maker: Nury Cordoba RPH (Pharmacist) Zosyn Extended Infusion Initial Consult Matthias Lambert 42 y.o. male Estimated Creatinine Clearance: 55.5 mL/min (A) (by C-G formula based on SCr of 2 mg/dL (H) ). NEUTROPHILS ABS Date Value Ref Range Status 04/19/2018 4.91 1.90 - 7.40 K/uL Final Neutrophils Absolute Date Value Ref Range Status 04/25/2018 13.28 (H) 1.90 - 7.40 K/uL Final CREATININE Date Value Ref Range Status 04/25/2018 2.0 (H) 0.70 - 1.30 mg/dL Final Zosyn extended Infusion loading and maintenance dose guidelines: Plan per pharmacy protocol: Loading Dose Re-load if maintenance dose is not given within > = 4 hours 4.5 g IV Over 30 minutes CrCl >20 ml/min 3.375 g IV Q 8 hours Over 4 hours CrCl 10-20 ml/min *Do Not re-load if CrCl ?20 ml/min regardless of time in between dosing 3.375 g IV Q 12 katherin rs Over 4 hours CrCl <10, HD, PD Zosyn 4.5 g IVPB loading dose over 30 minutes followed by Zosyn 3.375 g IVPB extended infus ion over 4 hours Q 8 hours Pharmacy will continue monitoring patient for appropriate dosing per renal function. 04/25/2018 3:02 PM Pharmacist: Nury Cordoba Lilian Spears MD - 04/25/2018 1:53 PM PSTFormatting of this note might be different from the o riginal. Progress Notes by Lilian Grove MD at 04/25/18 9388 Author: Lilian Grove MD Service: Neurology Author Type: Physician Filed: 04/26/18 8614 Date of Service: 04/25/18 7703 Status: Addendum Damper Maker: Lilian Grove MD (Physician) Related Notes: Original Note by Lilian Grove MD (Physician) filed at 04/26/18 3880 Subjective: Patient seen and examined. Matthias Lambert is a 42 y.o. male, I was asked to evaluate Mr. Lambert for muscle twitching. Briefly (please refer to Dr. Subramanian's consult from 04/19/18): "The patient is a 42 y.o. male with significant past medical history of cervical spondylosis and radiculopathy status post cervical laminectomy today, reported uncomplicated surgery except noted hypotensive episodes with SBP 60-90. Postoperatively, he developed weakness of the right arm, pain and hyperthes ia of left arm and from neck down to waist. He had MRI of the cervical spine today revealed T2 signal throughout the cervical cord with fusiform swelling. There appears to be potentia l susceptibility artifact along the paracentral region of the cord which could reflect some hemorrhage. Reviewed his imaged with Dr. Pat and Dr. Logan. He had prior MRI of the cer vical spine in 08/2016 with no evidence of cord abnormality. Prior MRI of the brain 08/2016 on e focus of nonspecific white matter change. He reports history of right vision loss in 1999 for a few months and recovered. He has had negative MS work up." Work Up: Please see below. Dr. Subramanian impression was spinal cord ischemia (anterior spinal artery distribution) with se condary hemorrhagic transformation but less likely demyelinating process with sudden onset o f flaccid weakness postop and MRI evidence of predominant llanes matter involvement without en hancement and evidence of some cord hemorrhage. The patient is pending to have cerebrospinal fluid study hope to provide additional information, including cell counts, MS panel, NMO an tibody. Dr. Subramanian recommended recommended transfer to [facility] for further work up. Current complaints: Today I was called for twitching of right left side. Was found down in the bathroom. No neuro-change. He lost balance, fell and hit his head against the bedside co mmode. It was noticed to be lethargic but arrousable with report of leg jerking. On assessme nt right leg and arm were jerking against resistance. When relaxed, muscle twitching in the thigh area. Neurosurgery was notified and neurology was consulted. Patient reports vague history of seizures (convulsion) w/o LOS and was treated with baclofe n for that. Temp of 102 and GFR of 36. He is still on gabapentin 900 mg tid. Objective: Vitals: Temp: [98.2 F (36.8 C)-102.6 F (39.2 C)] 98.2 F (36.8 C) Heart Rate: [103-130] 127 Resp: [18-22] 20 BP: (92-142)/(52-94) 119/67 Speech: Is normal; fluent and spontaneous. Cognition: The patient is oriented to person, place, and time (day and year). Cranial Nerves: At this time, the pupils are equal, round, and reactive to light. Visual fi elds are full to finger confrontation. Extraocular movements are intact. The face is symmetr ic. Hearing is symmetric bilaterally to fingers rubbing. The palate elevates in the midline. Voice is normal. The tongue has normal motion. Tone: Normal muscle tone. Strength: Strength is 5/5 all but no movement of right arm distally more than proximally (s ubtle movement of deltoid and right shoulder). Light Touch and tempr: Impaired right arm and chest to below the nipple level (T4-5). DTR's: Deep tendon reflexes in the upper and lower extremities are diminished bilaterally. Negative Mcneil or clonus but myoclonic jerking more with flexion and less with extension left more than right. CURRENT MEDICATIONS: Scheduled Meds: [START ON 04/26/2018] baclofen 10 mg Oral Daily enoxaparin 40 mg Subcutaneous Q24H gabapentin 900 mg Oral TID methocarbamol 500 mg Oral TID metronidazole 500 mg Intravenous Q8H nortriptyline 25 mg Oral Nightly pantoprazole 40 mg Oral QAM AC predniSONE 10 mg Oral Daily with breakfast sodium bicarbonate buffer 5 mL Infiltration Once vancomycin 500 mg Oral 4 times per day Labs Lab Results Component Value Date WBC 24.61 (H) 04/25/2018 HGB 13.7 04/25/2018 HCT 42.5 04/25/2018 MCV 89.7 04/25/2018 PLT 280 04/25/2018 Lab Results Component Value Date CREATININE 2.0 (H) 04/25/2018 BUN 27 (H) 04/25/2018 NA 134 (L) 04/25/2018 K 4.2 04/25/2018 CL 102 04/25/2018 CO2 20 (L) 04/25/2018 Calcium: 7.7 Images: Brain MRI from 04/20/18: 1. No acute infarction, acute intracranial hemorrhage, cerebral edema pathological mass ef fect. 2. Small nonspecific 6 mm FLAIR hyperintense focus in the right posterior pericallosal reg ion is stable compared to an MRI from 09/14/2016. Given the location this may represent a sm all demyelinating focus however no other lesions are visualized. Cervical MRI 04/19/18: 1. Postsurgical changes are noted with anterior cervical fusion from C5 through C7 with dec ompression laminectomies posteriorly. 2. There is newly developed T2 signal throughout the cervical cord with fusiform swelling. There appears to be potential susceptibility artifact along the paracentral region of the c ord which could reflect some hemorrhage. Differential considerations would include a cord c ontusion versus possible ADEM in the appropriate clinical context. Given that this does not occur along a typical vascular distribution, cord infarct with subsequent hemorrhage is thou ght to be unlikely but not excluded. This appears to extend into the thoracic cord and if i ndicated, further assessment of the thoracic cord could be performed with dedicated MRI. Th e edema is thought to be acute. 3. There is potential impingement of the left C5 and C7 nerve root. Thoracic MRI 04/20/18: 1. The previously visualized abnormal spinal cord edema in the cervical spinal cord is see n extending in the thoracic spinal cord up to the level of T4, below which the cord shows no rmal signal intensity and caliber. This abnormal cord signal appears to be slightly eccentr ic towards the right side and involves the central cord. No abnormal enhancement noted. MRA Spine 04/20/18: There is no enhancement of the cord to suggest active demyelination. Additionally, no enhan cement of the cord or surrounding the cord likely excludes a dural AVF and/or AVM of the cor d as the etiology of hemorrhage. Differential considerations of etiology of the hemorrhage within the cord remain unchanged and may possibly include spontaneous hemorrhage versus pres sure gradient differences status post decompression versus underlying bleeding diathesis. CSF: WBC: 11 RBC: 81948 Total protein: 55 Glucose: 108 CSF Cx: NGX 4 Ds. JUAN: P MARCELL: -ve VDRL: NR MS panel: P HSV: P NMO Abs: P Assessment: 1- Muscle twitching mainly of the left side, possibly due to cervical etiology (ishemia (an eterior spinal artery syndrome?) complicated with hemorrhage). 2- Weakness of right arm with cervical changes including hemorrhage, right > left, unclear etiology at this time. 3- Vague h/o seizure disorder (managed with baclofen per patient report) and MS (previous w ork up did not prove it per his report). 4- Fever, leukocytosis, and sepsis in the setting of infectious colitis. Agree with Dr. Subramanian that it is less likely for demyelinating process to cause acute sympto ms with no cervical spine enhancement, and with intramedullary cervical spinal hemorrhage. C SF with no clear evidence of infectious or inflammatory process at this time. In my opinion, the muscle twitching is due to cervical etiology (edema) rather than seizure . Gabapentin may contribute to that and dose may need to be adjusted according to his renal function. Methocarbamol may need also to be avoided due to renal dysfunction. Plan: 1- Telemetry bed with reasonable hydration. 2- Vital signs and neurocheck per ICU routine. Avoid hypotension. 3- Temperature every 4 hours and treat any temperature greater than 100 (37.8). 4- For #1, adjust gabapentin to 900 mg bid and may need to reduce the dose of methocarbamol . R-EEG when possible. 5- For #2, follow on CSF results, he is on prednisone 10 mg daily. 6- #4, per per ID, primary team and surgery. 7- General care including GI and DVT prophylaxis and risk factors modification per primary team. Thank you for allowing us to participate in your patient care. Please call with questions. No loss of coconsciousness or altered awareness with these twitching during my exam. Report of lethargy could be due to renal function and accumulation of medications. Head is atraumatic. Mundo Granda M D - 04/25/2018 11:35 AM PST Progress Notes by Mundo Ghosh MD at 04/25/18 1135 Author: Mundo Ghosh MD Service: Hospitalist Author Type: Physician Filed: 04/25/18 7717 Date of Service: 04/25/18 1135 Status: Addendum Damper Maker: Mundo Ghosh MD (Physician) Related Notes: Original Note by Mundo Ghosh MD (Physician) filed at 04/25/18 1145 [facility] Service: Hospitalist Progress Note Pt: Matthias Lambert AGE/SEX: 42 y.o. male ROOM: [facility]91[facility] : 1975 PCP: Per PT None ADMIT DATE: 04/19/2018 TODAY'S DATE: 04/25/2018 Hospital Day/Hospital Course: LOS: 6 days Per ICU 42 y.o.malewith a Diagnoses of Cervical radiculopathy at C6, Cervical radiculopathy at C7, and DDD (degenerative disc disease) underwent CERVICAL-LAMINECTOMY POSTERIOR (N/A) - Pos terior Cervical Laminectomy, Foraminotomy five to seven today. Intraoperatively had h some hypotension requiring vasopressin otherwise uncomplicated per r eport. Post op, he was noted to have no movement of right arm or fingers, some muscle twitch ing noted in the forearm. As well severe paresthesias in b/l UE, L>R and from thigh upwards over entire trunk. MRI done emergently showed following findings : There is newly developed T2 signal throughout the cervical cord with fusiform swelling. There appears to be potential susceptibility artifact along the paracentral region of the cord which could reflect some hemorrhage. Differential considerations would include a cord contusion versus possible ADEM in the appropriate clinical context. Given that this does not occur along a typical vascular distribution, cord infarct with subsequent hemorrhage is thought to be unlikely but not excluded. This appears to extend into the thoracic cord and if indicated, further assessment of the thoracic cord could be performed with dedicated MRI. The edema is thought to be acute. Patient is admitted to ICU for serial neuro checks and active management of BP for cord per fusion" ICU Timeline: 04/19/2018: ICU admission secondary to need for serial neuro checks due to acute neuro c hanges and paralysis 04/20: Slight improvement in sensation in LUE; remains flaccid in RUE; LP performed. Stool came back positive for C. difficile SUBJECTIVE: Patient seen and examine. Stool is positive for C. difficile. Fever curve is better. Abdomi nal pain is still there. Dr. Montano informed me regarding the new left-sided weakness. I exa mined him in detail. I could not appreciate any weakness on the left side. Continue to have a weakness in the right arm. Still having a numbness. He is moving his right leg. Still havi ng the diarrhea. No chest pain, SOB, NARVAEZ. No cough on recumbency. Had no orthopnea or PND. Still feeling tired and fatigued. No dizziness or lightheadedness. Scheduled Medications: [START ON 04/26/2018] baclofen 10 mg Oral Daily enoxaparin 40 mg Subcutaneous Q24H gabapentin 900 mg Oral TID methocarbamol 500 mg Oral TID metronidazole 500 mg Intravenous Q8H nortriptyline 25 mg Oral Nightly pantoprazole 40 mg Oral QAM AC predniSONE 10 mg Oral Daily with breakfast propranolol 10 mg Oral 4x Daily sodium bicarbonate buffer 5 mL Infiltration Once vancomycin 250 mg Oral 4 times per day Continuous Infusions sodium chloride (IV) 110 mL/hr at 04/24/18 2358 PRN Medications acetaminophen OR acetaminophen, calcium carbonate, diazePAM, melatonin, morphine OR morphine OR morphine, naloxone, nystatin, nystatin, ondansetron OR ondansetron, oxy CODONE OR oxyCODONE OR oxyCODONE, petrolatum, saline lock IV - when tolerating PO fl uids AND sodium chloride (PF), sodium chloride 0.9 % Allergy: No Known Allergies OBJECTIVE: Vitals: Patient Vitals for the past 24 hrs: BP Temp Temp src Pulse Resp SpO2 Weight 04/25/18 0856 94/61 - - 127 - - - 04/25/18 0700 (!) 142/94 98.4 F (36.9 C) Oral - 20 94 % - 04/25/18 0350 - 98.4 F (36.9 C) Oral - 20 92 % 95 kg (209 lb 6.4 oz) 04/24/18 2321 120/82 98.5 F (36.9 C) Axillary 120 22 95 % - 04/24/18 1930 111/56 102.6 F (39.2 C) Oral - 22 - - 04/24/18 1626 109/60 - - - 18 95 % - 04/24/18 1512 122/63 - - 103 - - - 04/24/18 1237 120/73 - - 112 - - - 04/24/18 1152 104/67 98.2 F (36.8 C) Oral - 18 100 % - I&O Detailed Table: Intake/Output Summary (Last 24 hours) at 04/25/18 1135 Last data filed at 04/24/18 1716 Gross per 24 hour Intake 1000 ml Output 0 ml Net 1000 ml Patient Vitals for the past 96 hrs: Weight 04/25/18 0350 95 kg (209 lb 6.4 oz) Hemodynamics Last 24hrs: Physical Examination: Constitutional: He is awake and alert. Morning with the pain. HEENT: Neck supple, no JVD, non icteric sclera. Cardiovascular: Normal rate S1, S2 Pulmonary/Chest: Chest clear b/l Abdominal: Abdomen is soft. Tender today. But it is better than yesterday but still distend ed. Extremeties/Musculoskeletal: Not having any edema. Neurological: Alert and oriented to person, place, and time. Power is 1 out of 5 in the ri ght arm. Decreased sensation. Power is 5 out of 5 in the left arm and left leg. Skin: Skin is warm and dry. No rash noted. No erythema. No pallor. Psychiatric: Has a normal mood and affect. Behavior is normal. Judgment normal. Not suicida l LABS: Recent Labs Lab 04/25/1840504/24/1842704/23/185 04/19/18 0738 WBC 24.61* 23.93* 28.19* < > 7.19 HGB 13.7 13.3 14.7 < > 14.3 HCT 42.5 41.1 45.0 < > 42.5 PLT 280 290 307 < > 334 NEUTOPHILPCT -- -- -- -- 68.28 MONOPCT -- -- -- -- 8.81 < > = values in this interval not displayed. Recent Labs Lab 04/25/18 04004/24/188 04/23/18 0415 NA 134* 135 139 K 4.2 4.1 3.9 CL 102 104 104 CO2 20* 22* 25 BUN 27* 20 20 CREATININE 2.0* 1.0 1.0 Phosphorus: Lab Results Component Value Date PHOS 3.2 04/25/2018 Recent Labs Lab 04/25/18 0406 04/24/18 0428 04/23/18 0415 MG 2.3 2.2 2.2 Recent Labs Lab 04/19/18 0738 APTT 27 INR 1.0 Results Procedure Component Value Units Date/Time Fecal occult blood (in house) [[id number]] Collected: 04/24/18 1405 Specimen: Stool from Stool Updated: 04/25/18816 Fecal Occult Blood NEGATIVE C Difficile Only [[id number]] (Abnormal) Collected: 04/24/18 1405 Specimen: Stool Updated: 04/25/18816 [facility] ANTIGEN POSITIVE (A) TOXIN A & B POSITIVE (A) C DIFF INTERPRETATION Positive for toxigenic C.difficile, active toxin present. Urine culture [[id number]] Collected: 04/23/18 1251 Specimen: Urine from Urine, Catheter Updated: 04/24/18 1949 Specimen Description CATHETERIZED URINE CULTURE NO GROWTH Blood Culture Set 2 [[id number]] Collected: 04/23/18 0858 Specimen: Blood from Blood, peripheral draw Updated: 04/24/18 1214 Specimen Description BLOOD, PERIPHERAL DRAW SPECIAL REQUESTS LWRIST CULTURE NO GROWTH AT THIS TIME Blood Culture Set 1 [[id number]] Collected: 04/23/18 0851 Specimen: Blood from Blood, peripheral draw Updated: 04/24/18 1214 Specimen Description BLOOD, PERIPHERAL DRAW SPECIAL REQUESTS RAC CULTURE NO GROWTH AT THIS TIME CSF culture w/gram stain [[id number]] Collected: 04/20/18 1600 Specimen: Cerebrospinal Fluid from CSF Updated: 04/24/18 0816 Specimen Description CEREBROSPINAL FLUID GRAM STAIN 3+ GRAM STAIN WBC'S SEEN GRAM STAIN NO ORGANISMS SEEN CULTURE NO GROWTH 4 DAYS Diagnostic Imaging: Impressions only: Mri Brain With And Without Contrast Result Date: 04/20/2018 1. No acute infarction, acute intracranial hemorrhage, cerebral edema pathological mass ef fect. 2. Small nonspecific 6 mm FLAIR hyperintense focus in the right posterior pericallosa l region is stable compared to an MRI from 09/14/2016. Given the location this may represent a small demyelinating focus however no other lesions are visualized. Clinical correlation is recommended. Signed by: MD Arin, Nubia Sign Date/Time: 04/20/2018 6:56 AM Mri Cervical Spine Without Contrast Result Date: 04/19/2018 1. Postsurgical changes are noted with anterior cervical fusion from C5 through C7 with dec ompression laminectomies posteriorly. 2. There is newly developed T2 signal throughout the c ervical cord with fusiform swelling. There appears to be potential susceptibility artifact along the paracentral region of the cord which could reflect some hemorrhage. Differential considerations would include a cord contusion versus possible ADEM in the appropriate clinic al context. Given that this does not occur along a typical vascular distribution, cord infar ct with subsequent hemorrhage is thought to be unlikely but not excluded. This appears to e xtend into the thoracic cord and if indicated, further assessment of the thoracic cord could be performed with dedicated MRI. The edema is thought to be acute. 3. There is potential i mpingement of the left C5 and C7 nerve root. 4. Critical result: Imaging findings are discus sed with the ordering provider by telephone at 1:25 p.m.. Signed by: Darryl Pat Da te/Time: 04/19/2018 1:30 PM Mri Thoracic Spine With And Without Contrast Result Date: 04/20/2018 1. The previously visualized abnormal spinal cord edema in the cervical spinal cord is see n extending in the thoracic spinal cord up to the level of T4, below which the cord shows no rmal signal intensity and caliber. This abnormal cord signal appears to be slightly eccentr ic towards the right side and involves the central cord. No abnormal enhancement noted. Sig michelle by: MD Arin, Nubia Sign Date/Time: 04/20/2018 7:02 AM Mra Spine With And Without Contrast Result Date: 04/20/2018 1. There is no enhancement of the cord to suggest active demyelination. Additionally, no en hancement of the cord or surrounding the cord likely excludes a dural AVF and/or AVM of the cord as the etiology of hemorrhage. Differential considerations of etiology of the hemorrha ge within the cord remain unchanged and may possibly include spontaneous hemorrhage versus p ressure gradient differences status post decompression versus underlying bleeding diathesis. Signed by: Darryl Pat Sign Date/Time: 04/20/2018 2:52 PM X-ray C-arm Fluoro Up To 1 Hour Result Date: 04/19/2018 Intraoperative fluoroscopic assessment. Signed by: Jose C Russell Sign Date/Time: 04/19/2018 2 :42 PM PROBLEM LIST Principal Problem: Sepsis (HCC) Active Problems: Cervical myelopathy (HCC) S/P laminectomy Infectious colitis Resolved Problems: * No resolved hospital problems. * ASSESSMENT & PLAN 42 y.o.malewith a Diagnoses of Cervical radiculopathy at C6, Cervical radiculopathy at C7, and DDD (degenerative disc disease) underwent CERVICAL-LAMINECTOMY POSTERIOR (N/A) - Pos terior Cervical Laminectomy, Foraminotomy five to seven today. Intraoperatively had h some hypotension requiring vasopressin otherwise uncomplicated per r eport. Post op, he was noted to have no movement of right arm or fingers, some muscle twitch ing noted in the forearm. Active Problems: Fever with sepsis with infectious colitis due to C. difficile: Fever curve has improved. Continue to have a elevated white cell count. Stool is positive for C. difficile. CT finding consistent with infectious colitis. GI has already evaluated th e patient. I still Recommend infectious diseases consultation. Currently vancomycin day #2 oral and Flagyl day #2 IV. His blood pressure is slightly on the low side and having renal insufficiency. I am more c oncerned about toxic kar colon. I DW Dr. Cardenas. I will continue to monitor Cervical myelopathy (HCC) S/P laminectomy. Postoperatively he was hypotensive. He was noted to have a weakness on the right arm and finger with muscle twitching. Decreased sensation in the abdominal wall as well. More likely related to ADEM versus contusion versus infarct. I DW Dr. Subramanian she is no t inclined towards demyelinating disease. Blood pressure is better now. He had a urinary ret ention more likely stent to the central cord syndrome. His tachycardia could be central vers us due to the pain. Addendum: 4:[address] Cardenas and DR. Conti. Also DW DR. Logan. I also DW Dr. Crump in the ICU. Co ncerned about Toxic Kar colon. Consideration for surgery and ICU transfer after that. Resolved Problems: * No resolved hospital problems. * Patient diagnosed with: , and I agree with the following nutritional recommendations: MUNDO GHOSH MD, FACP 04/25/2018 11:35 AM Dictation software, Kontagent, used which may contain error for similar sounding words even af ter review. Personal communication requested for any clarification. Portions of this chart may have been copied from previous notes for continuity of care purp ose onversion Transac tion, Provider Unknown - 04/25/2018 9:55 AM PSTFormatting of this note might be different f rom the original. Case Management by PARDEEP Serrato at 04/25/18 0955 Author: PARDEEP Serrato Service: (none) Author Type: Oil Well Service Operator Filed: 04/25/1857 Date of Service: 04/25/18954 Status: Signed Damper Maker: PARDEEP Serrato (Oil Well Service Operator) 04/25/18 09 Discharge Planning Evaluation Admitting Diagnosis Cervical Myelopathy Anticipated Disposition Facility Type Other (Comment) ([facility]) SEPARATOR INSERTER p/c from Sweetie at [facility], regarding clinical update, asked how mu ch PT and OT would Pt [facility] Sweetie to find out and call melody posada DCP: [facility] JANET DOCKERY Oil Well Service Operator [phone] cell onver antonio Star[employer], Provider Unknown - 04/25/2018 8:49 AM PST Nurse Progress Note by Traci Porter RN at 04/25/18 0873 Author: Traci Porter RN Service: (none) Author Type: Registered Nurse Filed: 04/25/18 1458 Date of Service: 04/25/1849 Status: Addendum Damper Maker: Traci Porter RN (Registered Nurse) Related Notes: Original Note by Traci Porter RN (Registered Nurse) filed at 04/25/18 9181 2515 Staff assist was pressed by officers, pt was found down in the bathroom. Staff assiste d patient back to bed, neuro was not changed form initial assessment. Pt. Stated he hit his head on the bedside cammode, he was attempting to move his brown out of the way when he lost balance and fell over. notified, requested q2 neuro check and no other interventions at this time. 0829 Patient is complaining of pain, SBP 80-90s and HR 120-130s. Patient can answer orienta tion questions but continues to repeat himself over and over. Pt still complaining of pain. Dr. Ghosh aware of hypotension, ordered 500ml bolus. 1100 Neuro reassessment done, patient still lethargic but arrousable. When leaving the room the patient stated, "why is my leg jerking, what is happening to me?", when assessed the pa sonias L leg and arm were jerking up and down against resistance. When relaxed muscle twitch ing in the thigh area was visible. Dr. Logan notified, this RN was instructed to notify Dr. Parham. Traci Porter, RN Florence Gray PA - 04/25/2018 8:26 AM PSTFormatting of this note might be different from th e original. Progress Notes by RAHEL Putnam at 04/25/18825 Author: RAHEL Putnam Service: Gastroenterology Author Type: Physician Assistan t - Certified Filed: 04/25/18 1228 Date of Service: 04/25/18825 Status: Attested Damper Maker: RAHEL Putnam (Physician Cloth Examiner Machine - Certified) Cosigner: Elías alas MD at 04/25/18 1502 Attestation signed by Elías Johsi MD at 04/25/18 3005 Above note is reviewed and I agree with the assessment and plan as documented. I performed an interview and personally examined the patient. If any changes were needed, the note was updated and changes were discussed with the author. Surgery planning to take patient or OR. Will await results. Elías Joshi MD [facility] Gastroenterology 04/25/2018 [facility] Service: Gastroenterology Consult Progress Note Hospital Day: LOS: 6 days SUBJECTIVE Patient Summary: Pt is a 42 yo male who was admitted to the hospital 04/19 after Poste rior Cervical Laminectomy. Post operatively he was noted to have new neurologic deficits. This was being treated. Patient developed fever 04/23 along with tachycardia and abdomina l pain. In order to evaluate, a CT abdomen was performed which showed diffuse thickening o f the colon. No evidence of obstruction or pneumatosis. Lactate was not elevated. Elida ent reports some abdominal pain. Has been getting antibiotics. No history of GI problems . Events Overnight: One episode of diarrhea this morning and had a fall during getting up. Per nursing, does not complain of many GI symptoms, but usually neck and back pain. Scheduled Medications [START ON 04/26/2018] baclofen 10 mg Oral Daily enoxaparin 40 mg Subcutaneous Q24H gabapentin 900 mg Oral TID methocarbamol 500 mg Oral TID metronidazole 500 mg Intravenous Q8H nortriptyline 25 mg Oral Nightly pantoprazole 40 mg Oral QAM AC predniSONE 10 mg Oral Daily with breakfast propranolol 10 mg Oral 4x Daily sodium bicarbonate buffer 5 mL Infiltration Once vancomycin 250 mg Oral 4 times per day Continuous Infusions sodium chloride (IV) 110 mL/hr at 04/24/18 2358 PRN Medications acetaminophen OR acetaminophen, calcium carbonate, diazePAM, melatonin, morphine OR morphine OR morphine, naloxone, nystatin, nystatin, ondansetron OR ondansetron, oxy CODONE OR oxyCODONE OR oxyCODONE, petrolatum, saline lock IV - when tolerating PO fl uids AND sodium chloride (PF), sodium chloride 0.9 % OBJECTIVE Vital Signs: BP (!) 142/94 (BP Location: Left upper arm) | Pulse 120 | Temp 98.4 F (36.9 C) (Oral) | Resp 20 | Ht 1.803 m (5' 11") | Wt 95 kg (209 lb 6.4 oz) | SpO2 94% | BMI 29.21 kg/m GENERAL: Well developed, well nourished, in no distress. Appears approximately stated age. HEENT: Normocephalic, atraumatic. EYES: PERRL, sclerae anicteric, no xanthelsasmas MOUTH: Oral mucosae moist, dentition adequate, no lesions noted. NECK: No JVD, lymphadenopathy, thyromegaly, bruits. Carotid pulses are 2+ bilaterally LUNGS: Clear bilaterally, with no rales, rhonchi or wheezing noted, respirations unlabored HEART: Nondisplaced PMI, regular rate and rhythm, S1, S2 normal. No murmurs, rubs or gallop s noted. ABDOMEN: Soft, nontender, nondistended. No organomegaly, masses or bruits. Bowel sounds are normal in all 4 quadrants. The abdominal aortic pulsation is not palpable. EXTREMITIES: no clubbing, cyanosis or edema. Pulses palpable and equal distally. SKIN: Warm and dry, capillary refill is normal, no lesions. No jaundice. NEUROLOGIC: Awake, alert and oriented x 3. No focal motor deficits. PSYCHIATRIC: Appropriate, affect appears normal DATA Lab Results Component Value Date WBC 24.61 (H) 04/25/2018 HGB 13.7 04/25/2018 HCT 42.5 04/25/2018 MCV 89.7 04/25/2018 PLT 280 04/25/2018 Lab Results Component Value Date CREATININE 2.0 (H) 04/25/2018 Lab Results Component Value Date INR 1.0 04/19/2018 PROBLEM LIST Principal Problem: Sepsis (HCC) Active Problems: Cervical myelopathy (HCC) S/P laminectomy Infectious colitis ASSESSMENT & PLAN Abnormal CT of colon Abdominal pain - Patient was admitted to the hospital for neurologic issues - Had some fever and abdominal pain - CT now shows diffuse thickening of the colon - This presentation is highly suggestive of infectious colitis. C. Diff returned as posit aguila. - Started on oral vancomycin and IV flagyl. Would cover with both for time being due to mu ltiple issues. - Overall, is slightly improved - Recommend continued medical management with IV antibiotics and IV fluids - No need for endoscopy at this point. RAHEL [facility] Gastroenterology 04/25/2018 Douglas Webb D O - 04/25/2018 7:59 AM PST Progress Notes by Douglas Logan DO at 04/25/18 0759 Author: Douglas Logan DO Service: Neurosurgery Author Type: Physician Filed: 04/25/1804 Date of Service: 04/25/18758 Status: Addendum Damper Maker: Douglas Logan DO (Physician) Related Notes: Original Note by Douglas Logan DO (Physician) filed at 04/25/18803 Neurosurgery Progress Note - Post Operative Provider: Douglas Logan DO Date : 04/25/2018 7:59 AM Referring Provider: Code Status: Full Code Hospital Day: LOS: 6 days Patient ID: [id number] Matthias Weber a 41 y.o.malewith severe cervical stenosis status post anterior cervical discectomy and fusion C5-C6 C6-7 with resolution of his radicular pa in market improvement in symptoms with only routine postoperative surgical pain and trapeziu s muscle spasm. Clinic Visit 04/19/2018: Matthias aLmbert is a 42 y.o. male returns to neurosurgery clinic with N eurosurgical followup status post anterior cervical diskectomy and fusion C5-7. Patient unf rachtunately is a [facility] patient, and despite our insistence, was not offered postoperative foll owup and followed with the local [facility] physician. 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 Patient was doing rather well for approximately 6 to 8 months until he started h aving intermittent tingling down his left hand in the C6 and C7 dermatomal region. This has returned and increased in nature. He was evaluated by his [facility] physician, who correctly or dered a CT myelogram of the cervical and lumbar spine, which showed that there was some bony overgrowth which had reoccurred at the fusion sites including C5-6, C6-7, more towards the left neural foramen, and may be the etiology of the patient's recurrent symptoms. This is a n over-healing and over-productive bone formation versus scar tissue which has compressed th e exiting nerves. Patient, during the interim, also states he has undergone other intervent ions. Recently had an ocular infection, for which he has had drainage and treatment only a few days ago. Patient denies any profound or severe weakness of the right upper extremity. Left upper extremity has improved in strength since his initial preop state, but states nidia t it was better few months ago. 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 Patient has been trying Neurontin; but because the [facility] controlled the s ubstances, not been getting it all the time. Patient does have what appears to be a lot of medical concerns for someone in [facility]. Admission Date - >04/19/2018 < - OR Date - Procedure(s) with comments: CERVICAL - LAMINECTOMY POSTERIOR (N/A) - Posterior Cervical Laminectomy, Foraminotomy five to seven. Possible adjacent levels. - post op with paradoxical right UE RLE paralysis and h ypersensitivity on left side MRI imaging with diffuse edema in non operated and operated reg ions of the cervical and thoracic spine possibly diffuse demyelinating process Hospital Course: 04/20/2018 3:04 PM - RUE with some movement of hand, return of strength in RLE. Improvement of hypersensitivity of LUE LLE. 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 Jovan gregory was worked up for MS and told at a time that he may have a subtype of the disease. 04/21/2018 2:01 PM - marginal improvements in sensation and movement 04/22/2018 7:34 AM - Patient with some return of pain related to steroid wean 04/23/2018 10:35 AM - febrile with confusion, decreased PO intake. Urine changed to dark amb er color history of recent occular infection and prior abx cleared prior to surgery although with high dose steroids potential for UTI vs. Bacteremia unlikely incisional infection at t his time. CSF results still pending. Was having liquid BM yesterday now with abdominal pain 04/25/2018 8:03 AM - continued loose stools, intermittent episodes of confusion and left arm weakness with dilaudid. Subjective Past Medical History Diagnosis Date GERD (gastroesophageal reflux disease) History of stomach ulcers Neuromyopathy (HCC) Other chronic pain Seizures (HCC) 2002 none since then Social History Social History Marital status: Unknown Spouse name: N/A Number of children: 1 Years of education: GED+ Occupational History Not on file. Social History Main Topics Smoking status: Former Smoker Quit date: 04/29/2001 Smokeless tobacco: Never Used Alcohol use No Drug use: Yes Types: Marijuana Sexual activity: Not on file Other Topics Concern Not on file Social History Narrative No narrative on file Family History Problem Relation Age of Onset Other (see comments) Father Brain tumor Cancer Other Diabetes Other No Known Allergies Objective Vital Signs: Last: Last 24hrs Vitals: 04/25/18 0700 BP: (!) 142/94 Pulse: Resp: 20 Temp: 98.4 F (36.9 C) SpO2: 94% Temp: [98.2 F (36.8 C)-102.6 F (39.2 C)] 98.4 F (36.9 C) Heart Rate: [103-120] 120 Resp: [18-22] 20 BP: (104-142)/(56-94) 142/94 Intake/Output Summary (Last 24 hours) at 04/25/18 0759 Last data filed at 04/24/18 1716 Gross per 24 hour Intake 1000 ml Output 0 ml Net 1000 ml No intake/output data recorded. 04/23 1900 - 04/25 0659 In: 2000 [P.O.:1000; I.V.:700] Out: 1050 [Urine:1050] Vent Settings Last 24hrs: PHYSICAL EXAM: General: confused somnulent moving left arm repeatedly AAO x 3 Skin:Skin color, texture, turgor normal. No rashes or lesions. HEENT: Normocephalic atraumatic NEW ABDOMINAL pain to palpation and light touch even in altered state Muscle Strength: Righ t Left Upper Extremity: 1/5 hand movement and palpable bicept and forearm 5/[address] rength Lower Extremity: 4/5 5/5 Wound:Clean, dry, and intact. No evidence of wound breakdown or infection Sensation: diffus e parasthesias Recent Labs Lab 04/25/18 0406 04/24/18 0428 WBC 24.61* 23.93* RBC 4.74 4.60 HGB 13.7 13.3 HCT 42.5 41.1 PLT 280 290 BANDSABS 7.88* 5.26* Recent Labs Lab 04/19/18 0738 APTT 27 INR 1.0 Recent Labs Lab 04/25/18 0406 04/24/18 0428 NA 134* 135 K 4.2 4.1 CL 102 104 CO2 20* 22* ANIONGAP 16 13 GLUF 85 114* BUN 27* 20 CREATININE 2.0* 1.0 BCR 14 20 CA 7.7* 7.2* PHOS 3.2 2.3 MG 2.3 2.2 Lab Results Component Value Date CLARITYU CLEAR 04/23/2018 LEUKOCYTESUR NEGATIVE 04/23/2018 NITRITE NEGATIVE 04/23/2018 UROBILINOGEN NORMAL 04/23/2018 UPRO 30 (A) 04/23/2018 PHUR 6.0 04/23/2018 BLOODU SMALL (A) 04/23/2018 KETONES NEGATIVE 04/23/2018 BILIRUBINUR NEGATIVE 04/23/2018 GLUCOSEU NEGATIVE 04/23/2018 Lab Results Component Value Date TROPONINI <0.006 04/23/2018 Scheduled Medications: [START ON 04/26/2018] baclofen 10 mg Oral Daily enoxaparin 40 mg Subcutaneous Q24H gabapentin 900 mg Oral TID methocarbamol 500 mg Oral TID metronidazole 500 mg Intravenous Q8H nortriptyline 25 mg Oral Nightly pantoprazole 40 mg Oral QAM AC piperacillin-tazobactam 3.375 g 3.375 g Intravenous Q8H propranolol 10 mg Oral 4x Daily sodium bicarbonate buffer 5 mL Infiltration Once vancomycin 250 mg Oral 4 times per day vancomycin 17 mg/kg Intravenous Q12H PRN Medications: acetaminophen OR acetaminophen, calcium carbonate, diazePAM, melatonin, morphine OR morphine OR morphine, naloxone, nystatin, nystatin, ondansetron OR ondansetron, oxy CODONE OR oxyCODONE OR oxyCODONE, petrolatum, saline lock IV - when tolerating PO fl uids AND sodium chloride (PF), sodium chloride 0.9 % Continuous Infusions sodium chloride (IV) 110 mL/hr at 04/24/18 2358 Patient Active Problem List Diagnosis Date Noted Sepsis (HCC) 04/24/2018 Infectious colitis 04/24/2018 Cervical myelopathy (HCC) 04/21/2018 S/P laminectomy 04/21/2018 Cervical radiculopathy at C7 11/04/2016 Cervical radiculopathy at C6 11/04/2016 DDD (degenerative disc disease), cervical 11/04/2016 Muscle weakness of upper extremity 11/04/2016 Bilateral carpal tunnel syndrome 08/26/2016 Assessment/Plan Matthias Lambert is a 42 y.o. male with cervical foraminal stenosis status post Procedure(s) wit h comments: CERVICAL - LAMINECTOMY POSTERIOR (N/A) - Posterior Cervical Laminectomy, Foraminotomy five to seven. Possible adjacent levels. - Admit Date - 04/19/2018 - Operative date - paradoxical cervical and thoracic spinal cord edema even in non operated segments without evidence of A VM likely intraoperative hypotension vs. attacking acute demyelinating process. +C.Diff with colitis Plan : 1. C. Diff + started oral vancomycin, lactic acid improving on precautions 2. CSF full analysis still pending minor elevation in protein and possible bloody tap. 3. SCD's and dvt prophylaxis 4. Continue close observation 5. Steroid wean to prednisone 10 qday 6. AMS may be febrile vs. polypharmacy will change dilaudid to morphine, decrease baclofen. 7. Encourage PT/OT Douglas Logan D.O Board Certified Neurosurgeon [facility] Office onversion Transactio n, Provider Unknown - 04/24/2018 6:20 PM PST Nurse Progress Note by Tatum Cota RN at 04/24/181819 Author: Tatum Cota RN Service: (none) Author Type: Registered Nurse Filed: 04/24/181837 Date of Service: 04/24/181819 Status: Signed Damper Maker: Tatum Cota RN (Registered Nurse) Patient had uneventful shift with HR in 110's. Patient's abd more distended and positive fo r C.diff, GI will evaluate in AM for plan. End of shift chart check complete. Tatum Cota RN onver antonio Transaction, Provider Unknown - 04/24/2018 4:07 PM PST Progress Notes by Gissell Powell RPH at 04/24/18 1607 Author: Gissell Powell RPH Service: Pharmacy Author Type: Pharmacist Filed: 04/24/18 1607 Date of Service: 04/24/18 1607 Status: Signed Damper Maker: Gissell Powell RPH (Pharmacist) Pharmacy Management for Clostridium difficile Patient has tested positive for DH antigen as well as Toxin A & B indicating toxigenic Clos tridium difficile. Discontinuing docusate, bisacodyl, milk of magnesia, and glycolax per P& T committee Pharmacist: Gissell Powell 04/24/2018 4:06 PM onver antonio Transaction, Provider Unknown - 04/24/2018 3:38 PM PST Therapy Progress Note by Vikas Garcia PT at 04/24/18 1538 Author: Vikas Garcia PT Service: (none) Author Type: Physical Therapist Filed: 04/24/18 1728 Date of Service: 04/24/181537 Status: Signed Damper Maker: Vikas Garcia PT (Physical Therapist) PHYSICAL THERAPY TREATMENT NOTE PT Received On: 04/24/18 Reason for Treatment: Spinal surgery (cervical laminectomy and foraminotomy) Requires PT Follow Up: Yes Focus for Next Treatment: Formal Balance Assessment, Equipment Trial (when appropriate for balance test, trial FWW with pt.) Recommendations: Prior Setting, PT, OT Equipment Recommended: None Barriers to Discharge: Physical Deficits Impacting Functional Gem Plan Treatment/Interventions: Continue per Primary PT POC Progress: Slow progress, medical status limitations Summary Comments: pt. supine in bed and agreeable to therapy. pt. is alert and oriented today repo rting he doesn't really remember much since Wednesday. Reviewed spinal precautions with pt wh o was able to follow them today (yesterday non-compliant with precautions) PROM/AAROM for R UE (see below for details) Supine to sit Min A, pt. ambulated in the room 10' x 2 with pt. reported feeling dizzy and "like I'm walking in a dream" after the first 10' so pt. sat down , after a few minutes felt better and ambulated back to bed. pt. supine in bed with guards present in room. Precautions Spinal Precautions: Cervical Other Precautions: Fall precautions, flaccid RUE, impulsivity, Ankle shackles Cognition Overall Cognitive Status: Within Functional Limits Orientation Level: Oriented Oriented: x 4 FUNCTIONAL MOBILITY Bed Mobility Supine to Sit: Verbal instruction, Min assist (1 LE OOB) Sit to Supine: Min assist (1 LE into bed), Verbal instruction - Transfers Sit to/from Stand: Minimal assist (steadying/contact guard) Ambulation Maximal Ambulation Distance (feet): 10 Total Ambulation Distance (feet): 20 Ambulation Assistance: Minimal assist Distance limited by?: Patient's ability Pattern: Step to, Decreased yanick, Right swing foot doesn't pass stance foot, Left swing foot doesn't pass stance foot Assistive Device: Other (Comment) ([employer] on therapist) BALANCE Static Sitting Balance Static Sitting-Balance Support: Right upper extremity support, Left upper extremity support , Feet supported Static Sitting-Level of Assistance: Standby assist THERAPEUTIC EXERCISE Therapeutic Exercises: PROM Right, AAROM Right PROM Right: Shoulder, Elbow, Wrist PROM Comments: 2 x 10 PROM/AAROM for shoulder abduction, flexion, ER/IR. pt. has 1/5 for f lexion, abduction, elbow flexion and wrist flexion. No muscle contraction noticed with rota tion of shoulder. AAROM Right: Shoulder, Elbow, Wrist AAROM Comments: 2 x 10 PROM/AAROM for shoulder abduction, flexion, ER/IR. pt. has 1/5 for flexion, abduction, elbow flexion and wrist flexion. No muscle contraction noticed with rot ation of shoulder. Activity Tolerance: Patient limited by fatigue Nurse Made Aware: yes Safety Devices in Place: (guards in room) Restraints Initially in Place: Yes (ankle shackles) The patient reported pain rated at a 8/10. RN was notified Education Completed: Education Topics: [] Rationale for PT [] PT POC [] DC planning [x] Precautions [x] Exercises [x] Bed mobility [x] Transfer training with hand placement [x] Gait training [] Stair training [x] Use of gait belt [] Other Completed with: [x] Patient [] Spouse [] Significant other [] Family [] C aregiver [] Other Completed by: [x] Verbal education [] Demonstration [] Handout [] Other: Response to Education: [x] Stated Understanding [] Reinforcement necessary [] Returned demonstration [] Demonstrated understanding [] No evidence of learning [] Refused PT Goals Pt Will Go Supine To Sit: Independently Pt Will Go Sit To Supine: Independently Pt Will Transfer Sit to Stand: Independently Pt Will Ambulate: greater than 500 feet Ambulate Level Assist: With supervision Pt Will Go Up / Down Stairs: 1 flight Stairs Level of Assist: With supervision Reflects last filed data of patient's status; may be from multiple contributors Elías Bell MD - 04/24/2018 2:52 PM PSTFormatting of this note might be different from t radha original. Progress Notes by Elías Joshi MD at 04/24/18 8653 Author: Elías Joshi MD Service: Gastroenterology Author Type: Physician Filed: 04/24/18 6329 Date of Service: 04/24/181451 Status: Signed Damper Maker: Elías Joshi MD (Physician) [facility] Service: Gastroenterology Consult Follow Up Note Hospital Day: LOS: 5 days SUBJECTIVE Patient Summary: Pt is a 42 yo male who was admitted to the hospital 04/19 after Poste rior Cervical Laminectomy. Post operatively he was noted to have new neurologic deficits. This was being treated. Patient developed fever 04/23 along with tachycardia and abdominal p ain. In order to evaluate, a CT abdomen was performed which showed diffuse thickening of th e colon. No evidence of obstruction or pneumatosis. Lactate was not elevated. Patient rep orts some abdominal pain. Has been getting antibiotics. No history of GI problems. Events Overnight: Continues to have abdominal pain. Tolerating liquid diet. Scheduled Medications baclofen 10 mg Oral TID bisacodyl 10 mg Rectal Daily docusate sodium 200 mg Oral BID enoxaparin 40 mg Subcutaneous Q24H gabapentin 900 mg Oral TID methocarbamol 500 mg Oral TID nortriptyline 25 mg Oral Nightly pantoprazole 40 mg Oral QAM AC piperacillin-tazobactam 3.375 g 3.375 g Intravenous Q8H propranolol 10 mg Oral 4x Daily sodium bicarbonate buffer 5 mL Infiltration Once vancomycin 17 mg/kg Intravenous Q12H Continuous Infusions sodium chloride (IV) 110 mL/hr at 04/24/18 0600 PRN Medications acetaminophen OR acetaminophen, calcium carbonate, diazePAM, HYDROmorphone OR HYDRO morphone, magnesium hydroxide, melatonin, naloxone, nystatin, nystatin, ondansetron OR o ndansetron, oxyCODONE OR oxyCODONE OR oxyCODONE, petrolatum, polyethylene glycol, sa line lock IV - when tolerating PO fluids AND sodium chloride (PF), sodium chloride 0.9 % OBJECTIVE Vital Signs: BP 120/73 | Pulse 112 | Temp 98.2 F (36.8 C) (Oral) | Resp 18 | Ht 1.803 m (5' 11") | Wt 89.2 kg (196 lb 10.4 oz) | SpO2 100% | BMI 27.43 kg/m Gen: NAD, appears well-developed CV: Very tachycardic Lungs: CTAB, Effort normal and breath sounds normal, No respiratory distress. Abd: Mild generalized tenderness, +BS, no masses or organomegaly, no rebound, no guardi ng Extremities: No spontaneous movements of RUE Head: Normocephalic. Mouth/Throat: Oropharynx is clear and moist and mucous membranes are normal Eyes: Conjunctivae and EOM are normal Skin: Warm, moist, intact, multiple tattoos Psychiatric: Normal mood and affect, behavior is normal, judgment and thought content eliecer l. DATA Lab Results Component Value Date WBC 23.93 (H) 04/24/2018 HGB 13.3 04/24/2018 HCT 41.1 04/24/2018 MCV 89.3 04/24/2018 PLT 290 04/24/2018 Lab Results Component Value Date CREATININE 1.0 04/24/2018 Lab Results Component Value Date INR 1.0 04/19/2018 PROBLEM LIST Principal Problem: Sepsis (HCC) Active Problems: Cervical myelopathy (HCC) S/P laminectomy Infectious colitis ASSESSMENT & PLAN Abnormal CT of colon Abdominal pain - Patient was admitted to the hospital for neurologic issues - Had some fever and abdominal pain - CT now shows diffuse thickening of the colon - This presentation is highly suggestive of infectious colitis - Patient did have some mild hypotension intraoperatively but current status does not sugg est ischemia as cause of colon changes. In addition, lactate is normal and improving. - No previous history of GI symptoms to suggest this is IBD - Overall, is slightly improved - Recommend continued medical management with IV antibiotics and IV fluids - No plan for endoscopy at this point but can consider if status does not improve Elías Joshi MD [facility] 04/24/2018 alMundo brady MD - 04/24/2018 9:57 AM PST Progress Notes by Mundo Ghosh MD at 04/24/18 99 Author: Mundo Ghosh MD Service: Hospitalist Author Type: Physician Filed: 04/24/18 0285 Date of Service: 04/24/18956 Status: Signed Damper Maker: Mundo Ghosh MD (Physician) [facility] Service: Hospitalist Progress Note Pt: Matthias Lambert AGE/SEX: 42 y.o. male ROOM: 9107/9107-1 : 1975 PCP: Per PT None ADMIT DATE: 04/19/2018 TODAY'S DATE: 04/24/2018 Hospital Day/Hospital Course: LOS: 5 days Per ICU 42 y.o.malewith a Diagnoses of Cervical radiculopathy at C6, Cervical radiculopathy at C7, and DDD (degenerative disc disease) underwent CERVICAL-LAMINECTOMY POSTERIOR (N/A) - Pos terior Cervical Laminectomy, Foraminotomy five to seven today. Intraoperatively had h some hypotension requiring vasopressin otherwise uncomplicated per r eport. Post op, he was noted to have no movement of right arm or fingers, some muscle twitch ing noted in the forearm. As well severe paresthesias in b/l UE, L>R and from thigh upwards over entire trunk. MRI done emergently showed following findings : There is newly developed T2 signal throughout the cervical cord with fusiform swelling. There appears to be potential susceptibility artifact along the paracentral region of the cord which could reflect some hemorrhage. Differential considerations would include a cord contusion versus possible ADEM in the appropriate clinical context. Given that this does not occur along a typical vascular distribution, cord infarct with subsequent hemorrhage is thought to be unlikely but not excluded. This appears to extend into the thoracic cord and if indicated, further assessment of the thoracic cord could be performed with dedicated MRI. The edema is thought to be acute. Patient is admitted to ICU for serial neuro checks and active management of BP for cord per fusion" ICU Timeline: 04/19/2018: ICU admission secondary to need for serial neuro checks due to acute neuro c hanges and paralysis 04/20: Slight improvement in sensation in LUE; remains flaccid in RUE; LP performed. SUBJECTIVE: Patient seen and examine. His fever curve has improved. Continues to have abdominal pain. H e is having diarrhea today. Continue to have a weakness in the right arm. Still having a num bness.. No chest pain, SOB, NARVAEZ. No cough on recumbency. Had no orthopnea or PND. Still fee ling tired and fatigued. No dizziness or lightheadedness. Scheduled Medications: baclofen 10 mg Oral TID bisacodyl 10 mg Rectal Daily docusate sodium 200 mg Oral BID enoxaparin 40 mg Subcutaneous Q24H gabapentin 900 mg Oral TID methocarbamol 500 mg Oral TID nortriptyline 25 mg Oral Nightly pantoprazole 40 mg Oral QAM AC piperacillin-tazobactam 3.375 g 3.375 g Intravenous Q8H propranolol 10 mg Oral 4x Daily sodium bicarbonate buffer 5 mL Infiltration Once vancomycin 17 mg/kg Intravenous Q12H Continuous Infusions sodium chloride (IV) 110 mL/hr at 04/24/18 0600 PRN Medications acetaminophen OR acetaminophen, calcium carbonate, diazePAM, HYDROmorphone OR HYDRO morphone, magnesium hydroxide, melatonin, naloxone, nystatin, nystatin, ondansetron OR o ndansetron, oxyCODONE OR oxyCODONE OR oxyCODONE, petrolatum, polyethylene glycol, sa line lock IV - when tolerating PO fluids AND sodium chloride (PF), sodium chloride 0.9 % Allergy: No Known Allergies OBJECTIVE: Vitals: Patient Vitals for the past 24 hrs: BP Temp Temp src Pulse Resp SpO2 04/24/18 0745 104/67 97.7 F (36.5 C) Oral - 18 97 % 04/24/18 0335 109/56 100 F (37.8 C) Oral 106 18 94 % 04/24/18 0123 - 99.2 F (37.3 C) Oral - - - 04/23/18 2316 92/55 101.2 F (38.4 C) Oral 100 18 - 04/23/18 2110 102/59 - - 132 - - 04/23/18 1936 101/62 99 F (37.2 C) Axillary 133 18 94 % 04/23/18 1600 95/67 - - 110 - - 04/23/18 1523 112/57 101.1 F (38.4 C) Axillary 108 16 95 % 04/23/18 1315 96/64 - - 115 - - 04/23/18 1237 - 98 F (36.7 C) Oral - - - 04/23/18 1142 100/61 99.6 F (37.6 C) Axillary 115 16 98 % 04/23/18 1009 96/60 - - 121 - - I&O Detailed Table: Intake/Output Summary (Last 24 hours) at 04/24/18 0957 Last data filed at 04/24/18 0738 Gross per 24 hour Intake 2320 ml Output 1750 ml Net 570 ml No data found. Hemodynamics Last 24hrs: Physical Examination: Constitutional: He is awake and alert. Talking to me appropriately. HEENT: Neck supple, no JVD, non icteric sclera. Cardiovascular: Normal rate S1, S2 Pulmonary/Chest: Chest clear b/l Abdominal: Abdomen is soft. Tender today. Extremeties/Musculoskeletal: Not having any edema. Neurological: Alert and oriented to person, place, and time. Power is 1 out of 5 in the ri ght arm. Decreased sensation. Skin: Skin is warm and dry. No rash noted. No erythema. No pallor. Psychiatric: Has a normal mood and affect. Behavior is normal. Judgment normal. Not suicida l LABS: Recent Labs Lab 04/24/1842704/23/1841404/22/1843704/19/18 0738 WBC 23.93* 28.19* 26.51* < > 7.19 HGB 13.3 14.7 13.1* < > 14.3 HCT 41.1 45.0 40.7 < > 42.5 PLT 290 307 330 < > 334 NEUTOPHILPCT -- -- -- -- 68.28 MONOPCT -- -- -- -- 8.81 < > = values in this interval not displayed. Recent Labs Lab 04/24/1842704/23/1841404/22/18437 NA 135 139 139 K 4.1 3.9 4.0 CL 104 104 102 CO2 22* 25 28 BUN 20 20 18 CREATININE 1.0 1.0 0.9 Phosphorus: Lab Results Component Value Date PHOS 2.3 04/24/2018 Recent Labs Lab 04/24/1842704/23/185 04/22/18 043 MG 2.2 2.2 2.1 Recent Labs Lab 04/19/18737 APTT 27 INR 1.0 Results Procedure Component Value Units Date/Time CSF culture w/gram stain [[id number]] Collected: 04/20/18 1600 Specimen: Cerebrospinal Fluid from CSF Updated: 04/24/18 0816 Specimen Description CEREBROSPINAL FLUID GRAM STAIN 3+ GRAM STAIN WBC'S SEEN GRAM STAIN NO ORGANISMS SEEN CULTURE NO GROWTH 4 DAYS Urine culture [[id number]] Collected: 04/23/18 1251 Specimen: Urine from Urine, Catheter Updated: 04/23/18 1937 Blood Culture Set 2 [[id number]] Collected: 04/23/18 0858 Specimen: Blood from Blood, peripheral draw Updated: 04/23/18 1033 Blood Culture Set 1 [[id number]] Collected: 04/23/18 0851 Specimen: Blood from Blood, peripheral draw Updated: 04/23/18 1033 MARCELL Prep - Fungal stain, CSF [[id number]] Collected: 04/20/18 1600 Specimen: Cerebrospinal Fluid from CSF Updated: 04/21/18 1255 Specimen Description CEREBROSPINAL FLUID CULTURE NO YEAST OR FUNGAL ELEMENTS SEEN Diagnostic Imaging: Impressions only: Mri Brain With And Without Contrast Result Date: 04/20/2018 1. No acute infarction, acute intracranial hemorrhage, cerebral edema pathological mass ef fect. 2. Small nonspecific 6 mm FLAIR hyperintense focus in the right posterior pericallosa l region is stable compared to an MRI from 09/14/2016. Given the location this may represent a small demyelinating focus however no other lesions are visualized. Clinical correlation is recommended. Signed by: MD Arin, Nubia Sign Date/Time: 04/20/2018 6:56 AM Mri Cervical Spine Without Contrast Result Date: 04/19/2018 1. Postsurgical changes are noted with anterior cervical fusion from C5 through C7 with dec ompression laminectomies posteriorly. 2. There is newly developed T2 signal throughout the c ervical cord with fusiform swelling. There appears to be potential susceptibility artifact along the paracentral region of the cord which could reflect some hemorrhage. Differential considerations would include a cord contusion versus possible ADEM in the appropriate clinic al context. Given that this does not occur along a typical vascular distribution, cord infar ct with subsequent hemorrhage is thought to be unlikely but not excluded. This appears to e xtend into the thoracic cord and if indicated, further assessment of the thoracic cord could be performed with dedicated MRI. The edema is thought to be acute. 3. There is potential i mpingement of the left C5 and C7 nerve root. 4. Critical result: Imaging findings are discus sed with the ordering provider by telephone at 1:25 p.m.. Signed by: Darryl Pat Sign Da te/Time: 04/19/2018 1:30 PM Mri Thoracic Spine With And Without Contrast Result Date: 04/20/2018 1. The previously visualized abnormal spinal cord edema in the cervical spinal cord is see n extending in the thoracic spinal cord up to the level of T4, below which the cord shows no rmal signal intensity and caliber. This abnormal cord signal appears to be slightly eccentr ic towards the right side and involves the central cord. No abnormal enhancement noted. Sig michelle by: MD Arin, Nubia Sign Date/Time: 04/20/2018 7:02 AM Mra Spine With And Without Contrast Result Date: 04/20/2018 1. There is no enhancement of the cord to suggest active demyelination. Additionally, no en hancement of the cord or surrounding the cord likely excludes a dural AVF and/or AVM of the cord as the etiology of hemorrhage. Differential considerations of etiology of the hemorrha ge within the cord remain unchanged and may possibly include spontaneous hemorrhage versus p ressure gradient differences status post decompression versus underlying bleeding diathesis. Signed by: Darryl Pat Sign Date/Time: 04/20/2018 2:52 PM X-ray C-arm Fluoro Up To 1 Hour Result Date: 04/19/2018 Intraoperative fluoroscopic assessment. Signed by: Jose C Russell Sign Date/Time: 04/19/2018 2 :42 PM PROBLEM LIST Principal Problem: Sepsis (HCC) Active Problems: Cervical myelopathy (HCC) S/P laminectomy Infectious colitis Resolved Problems: * No resolved hospital problems. * ASSESSMENT & PLAN 42 y.o.malewith a Diagnoses of Cervical radiculopathy at C6, Cervical radiculopathy at C7, and DDD (degenerative disc disease) underwent CERVICAL-LAMINECTOMY POSTERIOR (N/A) - Pos terior Cervical Laminectomy, Foraminotomy five to seven today. Intraoperatively had h some hypotension requiring vasopressin otherwise uncomplicated per r eport. Post op, he was noted to have no movement of right arm or fingers, some muscle twitch ing noted in the forearm. Active Problems: Fever with sepsis with infectious colitis: Fever curve has improved. CT finding consistent with infectious colitis. GI has already ev aluated the patient. For now continue with Zosyn and vancomycin. We will also send stool for C. difficile.. White cell count is improving. Will follow blood culture and urine culture. We will also follow the urine analysis. Recommend infectious diseases consultation. Cervical myelopathy (HCC) S/P laminectomy. Postoperatively he was hypotensive. He was noted to have a weakness on the right arm and finger with muscle twitching. Decreased sensation in the abdominal wall as well. More likely related to ADEM versus contusion versus infarct. He had a slight movement in her right arm today. Blood pressure is better now. He had a urinary retention more likel y stent to the central cord syndrome. His tachycardia could be central versus due to the duy n. His sensation is about the same. Still having a difficulty in moving her right arm. Resolved Problems: * No resolved hospital problems. * Patient diagnosed with: , and I agree with the following nutritional recommendations: MUNDO GHOSH MD, FACP 04/24/2018 9:57 AM Dictation software, Kontagent, used which may contain error for similar sounding words even af ter review. Personal communication requested for any clarification. Portions of this chart may have been copied from previous notes for continuity of care purp ose onversion Transac tion, Provider Unknown - 04/23/2018 11:53 PM PSTFormatting of this note might be different f rom the original. Nurse Progress Note by Kortney Negron RN at 04/23/182352 Author: Kortney Negron RN Service: (none) Author Type: Registered Nurse Filed: 04/24/18 0649 Date of Service: 04/23/182352 Status: Signed Damper Maker: Kortney Negron RN (Registered Nurse) [id number] took over patient care for Renée Cotton RN Chart check complete. Kortney Negron RN onver antonio Transaction, Provider Unknown - 04/23/2018 6:31 PM PST Nurse Progress Note by Tatum Cota RN at 04/23/181830 Author: Tatum Cota RN Service: (none) Author Type: Registered Nurse Filed: 04/23/181834 Date of Service: 02/23/19 1831 Status: Signed Damper Maker: Tatum Cota RN (Registered Nurse) Patient had intermittent confusion in AM and febrile of 100.4 then slept for majority of sh ift. Towards end of shift patient not oriented to place, situation, or time. Dr. Logan noti fied and will continue to monitor and reorient. Patient complaining of abdominal pain, CT do ne, GI consulting. Patient started on zosyn and vanco, 3 fluid boluses given. End of shift chart check complete. Tatum Cota RN onver antonio Transaction, Provider Unknown - 04/23/2018 12:59 PM PST Progress Notes by Jurgen Bowen RPH at 04/23/18 1259 Author: Jurgen Bowen RPH Service: Pharmacy Author Type: Pharmacist Filed: 04/23/18 1935 Date of Service: 04/23/18 125 Status: Addendum Damper Maker: Jurgen Bowen RPH (Pharmacist) Related Notes: Original Note by Jurgen Bowen RPH (Pharmacist) filed at 04/23/18 1 259 Vancomycin Monitoring S: Pharmacy to dose vancomycin per protocol. Diagnosis: Possible Colitis. Vancomycin Day: 1 O: Lab Results Component Value Date/Time CREATININE 1.0 04/23/2018 04:15 AM WBC 28.19 (H) 04/23/2018 04:15 AM Wt= 89.2 kg, CrCl= 1003.4 mL/min, Tmax 101.4, I/O (mL) 1000/300 Cultures= Bloodx2 in process, CSF NGTD, MRSA PCR neg. Other Abx= Zosyn. A: Trough goal: 10- 20 ug/mL P: Vancomycin . Order written to draw level at 1230 on 04/25/18. Pharmacist: Jurgen Bowen onver antonio Transaction, Provider Unknown - 04/23/2018 11:00 AM PST Nurse Progress Note by Leigh Ann Hicks RN at 04/23/18 1100 Author: Leigh Ann Hicks RN Service: (none) Author Type: Registered Nurse Filed: 04/23/18 1126 Date of Service: 04/23/18 1100 Status: Signed Damper Maker: Leigh Ann Hicks RN (Registered Nurse) Sepsis nurse following Douglas Webb DO - 04/23/2018 10:35 AM PSTFormatting of this note might be different from the or iginal. Progress Notes by Douglas Logan DO at 04/23/18 1035 Author: Douglas Logan DO Service: Neurosurgery Author Type: Physician Filed: 04/23/18 1247 Date of Service: 04/23/18 1035 Status: Addendum Damper Maker: Douglas Logan DO (Physician) Related Notes: Original Note by Douglas Logan DO (Physician) filed at 04/23/18 1108 Neurosurgery Progress Note - Post Operative Provider: Douglas Logan DO Date : 04/23/2018 10:35 AM Referring Provider: Code Status: Full Code Hospital Day: LOS: 4 days Patient ID: [id number] Matthias Lambertis a 41 y.o.malewith severe cervical stenosis status post anterior cervical discectomy and fusion C5-C6 C6-7 with resolution of his radicular pa in market improvement in symptoms with only routine postoperative surgical pain and trapeziu s muscle spasm. Clinic Visit 04/19/2018: Matthias Lambert is a 42 y.o. male returns to neurosurgery clinic with N eurosurgical followup status post anterior cervical diskectomy and fusion C5-7. Patient unf ortunately is a [facility] patient, and despite our insistence, was not offered postoperative foll owup and followed with the local [facility] physician. 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 Patient was doing rather well for approximately 6 to 8 months until he started h aving intermittent tingling down his left hand in the C6 and C7 dermatomal region. This has returned and increased in nature. He was evaluated by his [facility] physician, who correctly or dered a CT myelogram of the cervical and lumbar spine, which showed that there was some bony overgrowth which had reoccurred at the fusion sites including C5-6, C6-7, more towards the left neural foramen, and may be the etiology of the patient's recurrent symptoms. This is a n over-healing and over-productive bone formation versus scar tissue which has compressed th e exiting nerves. Patient, during the interim, also states he has undergone other intervent ions. Recently had an ocular infection, for which he has had drainage and treatment only a few days ago. Patient denies any profound or severe weakness of the right upper extremity. Left upper extremity has improved in strength since his initial preop state, but states nidia t it was better few months ago. 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 Patient has been trying Neurontin; but because the [facility] controlled the s ubstances, not been getting it all the time. Patient does have what appears to be a lot of medical concerns for someone in [facility]. Admission Date - >04/19/2018 < - OR Date - Procedure(s) with comments: CERVICAL - LAMINECTOMY POSTERIOR (N/A) - Posterior Cervical Laminectomy, Foraminotomy five to seven. Possible adjacent levels. - post op with paradoxical right UE RLE paralysis and h ypersensitivity on left side MRI imaging with diffuse edema in non operated and operated reg ions of the cervical and thoracic spine possibly diffuse demyelinating process Hospital Course: 04/20/2018 3:04 PM - RUE with some movement of hand, return of strength in RLE. Improvement of hypersensitivity of LUE LLE. 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 P alishacelina was worked up for MS and told at a time that he may have a subtype of the disease. 04/21/2018 2:01 PM - marginal improvements in sensation and movement 04/22/2018 7:34 AM - Patient with some return of pain related to steroid wean 04/23/2018 10:35 AM - febrile with confusion, decreased PO intake. Urine changed to dark amb er color history of recent occular infection and prior abx cleared prior to surgery although with high dose steroids potential for UTI vs. Bacteremia unlikely incisional infection at t his time. CSF results still pending. Was having liquid BM yesterday now with abdominal pain Subjective Past Medical History Diagnosis Date GERD (gastroesophageal reflux disease) History of stomach ulcers Neuromyopathy (HCC) Other chronic pain Seizures (HCC) 2002 none since then Social History Social History Marital status: Unknown Spouse name: N/A Number of children: 1 Years of education: GED+ Occupational History Not on file. Social History Main Topics Smoking status: Former Smoker Quit date: 04/29/2001 Smokeless tobacco: Never Used Alcohol use No Drug use: Yes Types: Marijuana Sexual activity: Not on file Other Topics Concern Not on file Social History Narrative No narrative on file Family History Problem Relation Age of Onset Other (see comments) Father Brain tumor Cancer Other Diabetes Other No Known Allergies Objective Vital Signs: Last: Last 24hrs Vitals: 04/23/18 1009 BP: 96/60 Pulse: 121 Resp: Temp: SpO2: Temp: [98.4 F (36.9 C)-102.1 F (38.9 C)] 101.4 F (38.6 C) Heart Rate: [103-144] 121 Resp: [16-19] 16 BP: (96-149)/(60-85) 96/60 Intake/Output Summary (Last 24 hours) at 04/23/18 1035 Last data filed at 04/23/18 0415 Gross per 24 hour Intake 1000 ml Output 300 ml Net 700 ml No intake/output data recorded. 04/21 1900 - 04/23 0659 In: 1000 [P.O.:1000] Out: 775 [Urine:775] Vent Settings Last 24hrs: PHYSICAL EXAM: General: confused somnulent "i am having fevers" little restless. Skin:Skin color, texture, turgor normal. No rashes or lesions. HEENT: Normocephalic atraumatic NEW ABDOMINAL pain to palpation and light touch even in altered state Muscle Strength: Righ t Left Upper Extremity: 1/5 hand movement and palpable bicept and forearm 5/5 Lower Extremity: 4/5 5/5 Wound:Clean, dry, and intact. No evidence of wound breakdown or infection Sensation: diffus e parasthesias Recent Labs Lab 04/23/18 0415 04/22/18 0438 WBC 28.19* 26.51* RBC 5.04 4.57 HGB 14.7 13.1* HCT 45.0 40.7 PLT 307 330 BANDSABS 2.82* 2.12* Recent Labs Lab 04/19/18 0738 APTT 27 INR 1.0 Recent Labs Lab 04/23/18 0415 04/22/18 0438 NA 139 139 K 3.9 4.0 CL 104 102 CO2 25 28 ANIONGAP 14 13 GLUF 116* 123* BUN 20 18 CREATININE 1.0 0.9 BCR 20 20 CA 8.3* 8.4* PHOS 2.5 2.8 MG 2.2 2.1 No results found for: COLORU, CLARITYU, MEROPENEM, LEUKOCYTESUR, NITRITE, UROBILINOGEN, UP RO, PHUR, BLOODU, KETONES, BILIRUBINUR, GLUCOSEU No results found for: TROPONINI Scheduled Medications: baclofen 10 mg Oral TID bisacodyl 10 mg Rectal Daily docusate sodium 200 mg Oral BID enoxaparin 40 mg Subcutaneous Q24H gabapentin 900 mg Oral TID levofloxacin 500 mg Intravenous Q24H methocarbamol 500 mg Oral TID nortriptyline 25 mg Oral Nightly pantoprazole 40 mg Oral QAM AC predniSONE 20 mg Oral BID propranolol 10 mg Oral 4x Daily sodium bicarbonate buffer 5 mL Infiltration Once sodium chloride (bolus) 500 mL Intravenous Once PRN Medications: acetaminophen OR acetaminophen, calcium carbonate, diazePAM, HYDROmorphone OR HYDRO morphone, magnesium hydroxide, melatonin, naloxone, nystatin, nystatin, ondansetron OR o ndansetron, oxyCODONE OR oxyCODONE OR oxyCODONE, petrolatum, polyethylene glycol, sa line lock IV - when tolerating PO fluids AND sodium chloride (PF), sodium chloride 0.9 % Continuous Infusions sodium chloride (IV) Patient Active Problem List Diagnosis Date Noted Cervical myelopathy (HCC) 04/21/2018 S/P laminectomy 04/21/2018 Cervical radiculopathy at C7 11/04/2016 Cervical radiculopathy at C6 11/04/2016 DDD (degenerative disc disease), cervical 11/04/2016 Muscle weakness of upper extremity 11/04/2016 Bilateral carpal tunnel syndrome 08/26/2016 Assessment/Plan Matthias Lambert is a 42 y.o. male with cervical foraminal stenosis status post Procedure(s) wit h comments: CERVICAL - LAMINECTOMY POSTERIOR (N/A) - Posterior Cervical Laminectomy, Foraminotomy five to seven. Possible adjacent levels. - Admit Date - 04/19/2018 - Operative date - paradoxical cervical and thoracic spinal cord edema even in non operated segments without evidence of A VM likely attacking acute demyelinating process Plan : 1. New febrile events with color change in urine, history of recent infections. After discu ssion with medicine team will start Levaquin IV Bolus 500ml NS and maintenance fluid at 110m l/hr. UA, blood culture pending. Appreciate medicine eval 2. With potential severe hypotensive episode risk for ischemic bowel which may be etiology of current symptoms with abdominal pain tachycardia and fever. STAT CT abdomen with IV contr ast and will consider consultation general surgery if pathology found.CXR shows some dilated bowel loops although limited study 3. CSF full analysis pending minor elevation in protein and possible bloody tap. 4. Wound without erythema or edema unlikely to be wound infection this early on POD 3. No i ndication for imaging of cervical spine unless no source identified in current lab testing. 5. CXR ordered encourage IS 6. SCD's and dvt prophylaxis 7. Continue close observation 8. Steroid wean It is a pleasure being involved in this patients care should any questions or concerns jeff e feel free to contact me at any time. Douglas Logan D.O Board Certified Neurosurgeon [facility] Office CT imaging of abdomen with colitis of entire colon discussed with General surgery potential for inflammatory process recommended escalating abx and increased fluid resuscitation. Lact ate, CK and troponin ordered will follow and tread lactate. If elevated patient may need col onoscopy for direct inspection of bowel mucosa r/o ischemia. Will consult GI for scope if la ctate elevated. Douglas Logan D.O Board Certified Neurosurgeon [facility] Office onversion Transactio n, Provider Unknown - 04/23/2018 9:43 AM PST Case Management by PARDEEP Serrato at 04/23/18942 Author: PARDEEP Serrato Service: (none) Author Type: Oil Well Service Operator Filed: 04/23/1846 Date of Service: 04/23/18942 Status: Addendum Damper Maker: PARDEEP Serrato (Oil Well Service Operator) Related Notes: Original Note by PARDEEP Serrato (Oil Well Service Operator) filed at 04/23/1845 04/23/18899 Discharge Planning Evaluation Admitting Diagnosis Cervical Myelopathy Anticipated Disposition Facility Type Other (Comment) [facility] SEPARATOR INSERTER approached by Josi MORATAYA regarding discharge planning. Dr. Chaudhry does not recommend IPR admission, recommends outpatient PT and OT. SEPARATOR INSERTER followed up with Sweetie Membreno RN coordinator for [facility] asked if they ca n provide outpatient PT and OT when he returns back to the [facility] system. Awaiting co nfirmation. DCP: [facility] [address], [place] [address] - [facility] number for nurse to nurse report is [phone] / - when medically ready. Social Bernardo SERRATO [phone] cell onver antonio Transaction, Provider Unknown - 04/23/2018 9:11 AM PST Therapy Progress Note by Vikas Garcia PT at 04/23/18 09 Author: Vikas Garcia PT Service: (none) Author Type: Physical Therapist Filed: 04/23/18 1026 Date of Service: 04/23/18910 Status: Signed Damper Maker: Vikas Garcia PT (Physical Therapist) PHYSICAL THERAPY TREATMENT NOTE PT Received On: 04/23/18 Reason for Treatment: Spinal surgery (cervical laminectomy and foraminotomy) Requires PT Follow Up: Yes Focus for Next Treatment: Formal Balance Assessment Recommendations: Prior Setting Equipment Recommended: None Barriers to Discharge: Physical Deficits Impacting Functional Gem, Self-care Defic its Impacting Functional Gem, Cognitive Deficits Impacting Functional Gem Plan Treatment/Interventions: Continue per Primary PT POC Progress: Slow progress, medical status limitations Summary Comments: pt. supine in bed and agreeable to therapy. Reviewed spinal precautions with pt. who isn't able to tell therapist any of them and constant cueing to maintain precautions (s till unable to maintain). pt. sat to EOB and reports feeling dizzy, BP taken 96/60. pt. st ill wants to get up but when pt. stands up pt. is having keeping eyes open and maintaining c onversation. Therapist decided pt. not safe to ambulate at this time and sat pt. back on EO B. pt. then had sudden urge to have bowel movement and was able to tranfser to commode with cues for hand placement and maintaining spinal precautions. No noted arm movement in RUE b ut has some shoulder movement on R side. pt. supine in bed with guards present at end of se ssion. Precautions Other Precautions: Fall precautions, flaccid RUE, impulsivity, Ankle shackles Cognition Overall Cognitive Status: Impaired FUNCTIONAL MOBILITY Bed Mobility Supine to Sit: Standby assist, Verbal instruction Sit to Supine: Standby assist, Verbal instruction - Transfers Sit to/from Stand: Minimal assist (steadying/contact guard) Ambulation Ambulation Assistance: Unable to assess (Comment), Safety concerns BALANCE Static Sitting Balance Static Sitting-Balance Support: Right upper extremity support, Left upper extremity support , Feet supported Static Sitting-Level of Assistance: Standby assist Static Sitting-Comment/Duration: x 10 minutes Activity Tolerance: Patient limited by pain, Patient limited by fatigue Nurse Made Aware: yes Safety Devices in Place: (call light in reach) Restraints Initially in Place: No The patient demonstrated no indication of pain during therapy session. Education Completed: Education Topics: [] Rationale for PT [] PT POC [] DC planning [] Precautions [] Exercises [] Bed mobility [x] Transfer training with hand placement [x] Gait training [] Stair training [x] Use of gait belt [] Other Completed with: [x] Patient [] Spouse [] Significant other [] Family [] C aregiver [] Other Completed by: [x] Verbal education [] Demonstration [] Handout [] Other: Response to Education: [x] Stated Understanding [] Reinforcement necessary [] Returned demonstration [] Demonstrated understanding [] No evidence of learning [] Refused PT Goals Pt Will Go Supine To Sit: Independently Pt Will Go Sit To Supine: Independently Pt Will Transfer Sit to Stand: Independently Pt Will Ambulate: greater than 500 feet Ambulate Level Assist: With supervision Pt Will Go Up / Down Stairs: 1 flight Stairs Level of Assist: With supervision Reflects last filed data of patient's status; may be from multiple contributors Mundo Peng MD - 04/23/2018 8:15 AM PST Progress Notes by Mundo Ghosh MD at 04/23/18814 Author: Mundo Ghosh MD Service: Hospitalist Author Type: Physician Filed: 04/23/18 1026 Date of Service: 04/23/18814 Status: Signed Damper Maker: Mundo Ghosh MD (Physician) [facility] Service: Hospitalist Progress Note Pt: Matthias Lambert AGE/SEX: 42 y.o. male ROOM: 91/9107-1 : 1975 PCP: Per PT None ADMIT DATE: 04/19/2018 TODAY'S DATE: 04/23/2018 Hospital Day/Hospital Course: LOS: 4 days Per ICU 42 y.o.malewith a Diagnoses of Cervical radiculopathy at C6, Cervical radiculopathy at C7, and DDD (degenerative disc disease) underwent CERVICAL-LAMINECTOMY POSTERIOR (N/A) - Pos terior Cervical Laminectomy, Foraminotomy five to seven today. Intraoperatively had h some hypotension requiring vasopressin otherwise uncomplicated per r eport. Post op, he was noted to have no movement of right arm or fingers, some muscle twitch ing noted in the forearm. As well severe paresthesias in b/l UE, L>R and from thigh upwards over entire trunk. MRI done emergently showed following findings : There is newly developed T2 signal throughout the cervical cord with fusiform swelling. There appears to be potential susceptibility artifact along the paracentral region of the cord which could reflect some hemorrhage. Differential considerations would include a cord contusion versus possible ADEM in the appropriate clinical context. Given that this does not occur along a typical vascular distribution, cord infarct with subsequent hemorrhage is thought to be unlikely but not excluded. This appears to extend into the thoracic cord and if indicated, further assessment of the thoracic cord could be performed with dedicated MRI. The edema is thought to be acute. Patient is admitted to ICU for serial neuro checks and active management of BP for cord per fusion" ICU Timeline: 04/19/2018: ICU admission secondary to need for serial neuro checks due to acute neuro c hanges and paralysis 04/20: Slight improvement in sensation in LUE; remains flaccid in RUE; LP performed. SUBJECTIVE: Patient seen and examine. His was having fever early in the morning. He seems diet today.. Continue to have a weakness in the right arm. Still having a numbness.. No chest pain, SOB, NARVAEZ. No cough on recumbency. Had no orthopnea or PND. No Abdominal pain, N/V. Still feeling tired and fatigued. No dizziness or lightheadedness. Scheduled Medications: baclofen 10 mg Oral TID bisacodyl 10 mg Rectal Daily docusate sodium 200 mg Oral BID enoxaparin 40 mg Subcutaneous Q24H gabapentin 900 mg Oral TID methocarbamol 500 mg Oral TID nortriptyline 25 mg Oral Nightly pantoprazole 40 mg Oral QAM AC propranolol 10 mg Oral 4x Daily sodium bicarbonate buffer 5 mL Infiltration Once Continuous Infusions PRN Medications acetaminophen OR acetaminophen, calcium carbonate, diazePAM, HYDROmorphone OR HYDRO morphone, magnesium hydroxide, melatonin, naloxone, nystatin, nystatin, ondansetron OR o ndansetron, oxyCODONE OR oxyCODONE OR oxyCODONE, petrolatum, polyethylene glycol, sa line lock IV - when tolerating PO fluids AND sodium chloride (PF), sodium chloride 0.9 % Allergy: No Known Allergies OBJECTIVE: Vitals: Patient Vitals for the past 24 hrs: BP Temp Temp src Pulse Resp SpO2 04/23/18 0743 105/67 102.1 F (38.9 C) Axillary 113 16 91 % 04/23/18 0412 111/71 98.9 F (37.2 C) Oral 103 16 95 % 04/22/18 2338 133/68 99.1 F (37.3 C) Oral 107 16 92 % 04/22/182327 130/70 - - 105 - - 04/22/182323 130/70 99.9 F (37.7 C) Oral 109 16 90 % 04/22/182023 142/85 100.4 F (38 C) Oral 110 16 94 % 04/22/182021 142/85 - - 115 - - 04/22/18 1546 126/70 98.4 F (36.9 C) Oral 124 17 92 % 04/22/18 1420 149/82 - - 130 - - 04/22/18 1108 126/76 99 F (37.2 C) Axillary 144 19 98 % I&O Detailed Table: Intake/Output Summary (Last 24 hours) at 04/23/18 0815 Last data filed at 04/23/18 0415 Gross per 24 hour Intake 1000 ml Output 300 ml Net 700 ml Patient Vitals for the past 96 hrs: Weight 04/19/18 1530 89.2 kg (196 lb 10.4 oz) Hemodynamics Last 24hrs: Physical Examination: Constitutional: He was sleeping when I was interviewing but arousable. Talking to me approp riately. HEENT: Neck supple, no JVD, non icteric sclera. Cardiovascular: Normal rate S1, S2 Pulmonary/Chest: Chest clear b/l Abdominal: Soft. NT Bs+ Extremeties/Musculoskeletal: Not having any edema. Neurological: Alert and oriented to person, place, and time. Power is 1 out of 5 in the ri ght arm. Decreased sensation. Skin: Skin is warm and dry. No rash noted. No erythema. No pallor. Psychiatric: Has a normal mood and affect. Behavior is normal. Judgment normal. Not suicida l LABS: Recent Labs Lab 04/23/18 0415 04/22/18 0438 04/21/18 1345 04/19/18 0738 WBC 28.19* 26.51* 28.46* < > 7.19 HGB 14.7 13.1* 13.9 < > 14.3 HCT 45.0 40.7 43.9 < > 42.5 PLT 307 330 357 < > 334 NEUTOPHILPCT -- -- -- -- 68.28 MONOPCT -- -- -- -- 8.81 < > = values in this interval not displayed. Recent Labs Lab 04/23/18 0415 04/22/18 0438 04/21/18 0438 NA 139 139 144 K 3.9 4.0 4.5 | 4.4 CL 104 102 107 CO2 25 28 26 BUN 20 18 14 CREATININE 1.0 0.9 0.80 Phosphorus: Lab Results Component Value Date PHOS 2.5 04/23/2018 Recent Labs Lab 04/23/18 0415 04/22/18 0438 04/21/18 0438 MG 2.2 2.1 1.9 Recent Labs Lab 04/19/18 0738 APTT 27 INR 1.0 Results Procedure Component Value Units Date/Time CSF culture w/gram stain [[id number]] Collected: 04/20/18 1600 Specimen: Cerebrospinal Fluid from CSF Updated: 04/22/18 1136 Specimen Description CEREBROSPINAL FLUID GRAM STAIN 3+ GRAM STAIN WBC'S SEEN GRAM STAIN NO ORGANISMS SEEN CULTURE NO GROWTH 2 DAYS MARCELL Prep - Fungal stain, CSF [[id number]] Collected: 04/20/18 1600 Specimen: Cerebrospinal Fluid from CSF Updated: 04/21/18 1255 Specimen Description CEREBROSPINAL FLUID CULTURE NO YEAST OR FUNGAL ELEMENTS SEEN CSF cell count with differential [[id number]] (Abnormal) Collected: 04/20/18 1600 Specimen: Cerebrospinal Fluid from Lumbar Puncture Updated: 04/20/182026 COLOR PINK APPEARANCE HAZY Tube Number, CSF 3 CSF RBC 17,675 (H) /mm3 CSF WBC 11 (H) /mm3 NEUTROPHILS 35 % LYMPHOCYTES 6 % CELLS COUNTED 41 Protein, CSF [[id number]] (Abnormal) Collected: 04/20/18 1600 Specimen: Cerebrospinal Fluid from Lumbar Puncture Updated: 04/20/182004 CSF TOTAL PROTEIN 55 (H) mg/dL Glucose, CSF [[id number]] (Abnormal) Collected: 04/20/18 1600 Specimen: Cerebrospinal Fluid from Lumbar Puncture Updated: 04/20/182004 CSF GLUCOSE 108 (H) mg/dL VDRL, CSF [[id number]] Collected: 04/20/18 1600 Specimen: Cerebrospinal Fluid from Lumbar Puncture Updated: 04/20/181856 CSF IgG index [[id number]] Collected: 04/20/18 1600 Specimen: Cerebrospinal Fluid from Lumbar Puncture Updated: 04/20/181856 Myelin basic protein, CSF [[id number]] Collected: 04/20/18 1600 Specimen: Cerebrospinal Fluid from Lumbar Puncture Updated: 04/20/181856 Angiotensin converting enzyme, CSF [[id number]] Collected: 04/20/181599 Specimen: Cerebrospinal Fluid from Lumbar Puncture Updated: 04/20/181856 HSV 1/2 detect/diff by rtpcr : for antigen testing on CSF, newborns & immuno-compromised. [[id number]] Collected: 04/20/181599 Specimen: Cerebrospinal Fluid from CSF Updated: 04/20/181856 Neuromyelitis optica IgG, CSF [[id number]] Collected: 04/20/181599 Updated: 04/20/181654 Diagnostic Imaging: Impressions only: Mri Brain With And Without Contrast Result Date: 04/20/2018 1. No acute infarction, acute intracranial hemorrhage, cerebral edema pathological mass ef fect. 2. Small nonspecific 6 mm FLAIR hyperintense focus in the right posterior pericallosa l region is stable compared to an MRI from 09/14/2016. Given the location this may represent a small demyelinating focus however no other lesions are visualized. Clinical correlation is recommended. Signed by: MD Arin, Nubia Sign Date/Time: 04/20/2018 6:56 AM Mri Cervical Spine Without Contrast Result Date: 04/19/2018 1. Postsurgical changes are noted with anterior cervical fusion from C5 through C7 with dec ompression laminectomies posteriorly. 2. There is newly developed T2 signal throughout the c ervical cord with fusiform swelling. There appears to be potential susceptibility artifact along the paracentral region of the cord which could reflect some hemorrhage. Differential considerations would include a cord contusion versus possible ADEM in the appropriate clinic al context. Given that this does not occur along a typical vascular distribution, cord infar ct with subsequent hemorrhage is thought to be unlikely but not excluded. This appears to e xtend into the thoracic cord and if indicated, further assessment of the thoracic cord could be performed with dedicated MRI. The edema is thought to be acute. 3. There is potential i mpingement of the left C5 and C7 nerve root. 4. Critical result: Imaging findings are discus sed with the ordering provider by telephone at 1:25 p.m.. Signed by: Darryl Pat Sign Da te/Time: 04/19/2018 1:30 PM Mri Thoracic Spine With And Without Contrast Result Date: 04/20/2018 1. The previously visualized abnormal spinal cord edema in the cervical spinal cord is see n extending in the thoracic spinal cord up to the level of T4, below which the cord shows no rmal signal intensity and caliber. This abnormal cord signal appears to be slightly eccentr ic towards the right side and involves the central cord. No abnormal enhancement noted. Sig michelle by: MD Arin, Nubia Sign Date/Time: 04/20/2018 7:02 AM Mra Spine With And Without Contrast Result Date: 04/20/2018 1. There is no enhancement of the cord to suggest active demyelination. Additionally, no en hancement of the cord or surrounding the cord likely excludes a dural AVF and/or AVM of the cord as the etiology of hemorrhage. Differential considerations of etiology of the hemorrha ge within the cord remain unchanged and may possibly include spontaneous hemorrhage versus p ressure gradient differences status post decompression versus underlying bleeding diathesis. Signed by: Darryl Pat Sign Date/Time: 04/20/2018 2:52 PM X-ray C-arm Fluoro Up To 1 Hour Result Date: 04/19/2018 Intraoperative fluoroscopic assessment. Signed by: Jose C Russell Sign Date/Time: 04/19/2018 2 :42 PM PROBLEM LIST Active Problems: Cervical myelopathy (HCC) S/P laminectomy Resolved Problems: * No resolved hospital problems. * ASSESSMENT & PLAN 42 y.o.malewith a Diagnoses of Cervical radiculopathy at C6, Cervical radiculopathy at C7, and DDD (degenerative disc disease) underwent CERVICAL-LAMINECTOMY POSTERIOR (N/A) - Pos terior Cervical Laminectomy, Foraminotomy five to seven today. Intraoperatively had h some hypotension requiring vasopressin otherwise uncomplicated per r eport. Post op, he was noted to have no movement of right arm or fingers, some muscle twitch ing noted in the forearm. Active Problems: Fever: He was having a fever imaging manager. Also having leukocytosis and tachycardia. I doubt the septic. Will send a blood culture and urine culture. We will also follow the urine analysis . Recommend infectious diseases consultation. For now we will start on Levaquin along with I V fluids. Cervical myelopathy (HCC) S/P laminectomy. Postoperatively he was hypotensive. He was noted to have a weakness on the right arm and finger with muscle twitching. Decreased sensation in the abdominal wall as well. More likely related to ADEM versus contusion versus infarct. He had a slight movement in her right arm today. Blood pressure is better now. He had a urinary retention more likel y stent to the central cord syndrome. His tachycardia could be central versus due to the duy n. His sensation is about the same. Still having a difficulty in moving her right arm. Resolved Problems: * No resolved hospital problems. * Patient diagnosed with: , and I agree with the following nutritional recommendations: MUNDO GHOSH MD, FACP 04/23/2018 8:15 AM Dictation software, Kont[employer], used which may contain error for similar sounding words even af ter review. Personal communication requested for any clarification. Portions of this chart may have been copied from previous notes for continuity of care purp ose onversion Transac tion, Provider Unknown - 04/23/2018 7:45 AM PSTFormatting of this note might be different f rom the original. Nurse Progress Note by Antwon Barillas RN at 04/23/18744 Author: Antwon Barillas RN Service: (none) Author Type: Registered Nurse Filed: 04/23/18744 Date of Service: 04/23/18744 Status: Signed Damper Maker: Antwon Barillas RN (Registered Nurse) Chart check complete. onver antonio Transaction, Provider Unknown - 04/22/2018 6:56 PM PST Nurse Progress Note by Tatum Cota RN at 04/22/181855 Author: Tatum Cota RN Service: (none) Author Type: Registered Nurse Filed: 04/22/181856 Date of Service: 04/22/181855 Status: Signed Damper Maker: Tatum Cota RN (Registered Nurse) Patient had increased pain in middle of shift with HR in 150's and patient unable to stand still. Dr. Logan notified, valium ordered. Dr. Ghosh notified for HR and propranolol ordere d. HR in 110's with patient currently resting comfortably. End of shift chart check compete. Tatum Cota RN onver antonio Transaction, Provider Unknown - 04/22/2018 1:49 PM PST Case Management by PARDEEP Serrato at 04/22/18 6151 Author: PARDEEP Serrato Service: (none) Author Type: Oil Well Service Operator Filed: 04/22/18 9314 Date of Service: 04/22/18 9659 Status: Signed Damper Maker: PARDEEP Serrato (Oil Well Service Operator) 04/22/18 1300 Discharge Planning Evaluation Admitting Diagnosis Cervical Myelopathy Anticipated Disposition Facility Type Inpatient Rehabilitation SEPARATOR INSERTER p/c with Dr. Logan who states due to right arm paralysis s/p Cervical Laminectomy surg sage and needs a rehab stay at our Inpatient Rehabilitation Unit before returning to the [facility] on. Dr. Colindres states if Pt does not get accepted to [facility], the patient may stay in hospital f or an extended amount time to work with Physical Therapy. SEPARATOR INSERTER communicated with Ana Membreno, Coordinator with [facility] cell) regarding Inpatient Rehab consult with Dr. Wing Chaudhry. Pt is from [facility] in [facility]. [facility] ([facility]), [address] [place] [address] [facility] number for nurse to nurse report is [phone] / [facility]/[place] [facility] [employer] Hospitalization Instructions o Admission Notification: Ana Membreno RN, BSN |Facility Quality Control Coordinator| [facility] [phone] Cell |[phone] | [address] | [place] [address] o Discharge Process: o Notify the [facility] Quality Control Coordinator of anticipated discharge o For all inpatients and ambulatory surgery patients call accepting [facility]. (number s below) o Discharging MD to call [facility] provider for medical handover if MD feels there is pertinent information that needs to be discussed with the PCP. Contact information for the PCP can be obtained by calling the institution numbers below. o Nurse telephone report to receiving [facility] clinical staff. [facility] ([facility]), [address] [place] [address] [facility] number for nurse to nurse report is [phone] / o Chest pain patients that have ruled out go directly back to their correctional facility o If you have any questions or concerns, please call the [facility] Quality Control Coordinator o Medical records to transfer back to [facility] facility with the patient: o Pertinent labs/test results completed o Follow up needs lab/testing/MD appointments-do not discuss or list appointment date(s ) with the patient. o Medication list o Problem list o Presence of lines/catheters o Current cognitive status (any changes from baseline) o Skin condition o Advanced directives o Oxygen needs o Formulary Information: o The Department of Corrections has developed a list of medications that comprise the offic [facility] formulary. This formulary is dynamic and was developed in collaboration with its [employer]. The current [facility] formulary can be found on [facility] s website and [facility] link: [email or web address]. o The [facility] Quality Control Coordinator is available to assist with formulary questions regarding discharge medications Claims: Appeals [facility] C/O [facility] APPEALS-[facility] [address] [address] [address] [place] [address] [place], [place] [address] (Claims paid per [facility] contract) DCP: Pending [facility] Inpatient Rehab Unit JANET DOCKERY, Oil Well Service Operator [phone] cell Mundo Peng MD - 04/22/2018 9:20 AM PST Progress Notes by Mundo Ghosh MD at 04/22/18919 Author: Mundo Ghosh MD Service: Hospitalist Author Type: Physician Filed: 04/22/18 1217 Date of Service: 04/22/18919 Status: Signed Damper Maker: Mundo Ghosh MD (Physician) [facility] Service: Hospitalist Progress Note Pt: Matthias Lambert AGE/SEX: 42 y.o. male ROOM: [address] [place] [address] : 1975 PCP: Per PT None ADMIT DATE: 04/19/2018 TODAY'S DATE: 04/22/2018 Hospital Day/Hospital Course: LOS: 3 days Per ICU 42 y.o.malewith a Diagnoses of Cervical radiculopathy at C6, Cervical radiculopathy at C7, and DDD (degenerative disc disease) underwent CERVICAL-LAMINECTOMY POSTERIOR (N/A) - Pos terior Cervical Laminectomy, Foraminotomy five to seven today. Intraoperatively had h some hypotension requiring vasopressin otherwise uncomplicated per r eport. Post op, he was noted to have no movement of right arm or fingers, some muscle twitch ing noted in the forearm. As well severe paresthesias in b/l UE, L>R and from thigh upwards over entire trunk. MRI done emergently showed following findings : There is newly developed T2 signal throughout the cervical cord with fusiform swelling. There appears to be potential susceptibility artifact along the paracentral region of the cord which could reflect some hemorrhage. Differential considerations would include a cord contusion versus possible ADEM in the appropriate clinical context. Given that this does not occur along a typical vascular distribution, cord infarct with subsequent hemorrhage is thought to be unlikely but not excluded. This appears to extend into the thoracic cord and if indicated, further assessment of the thoracic cord could be performed with dedicated MRI. The edema is thought to be acute. Patient is admitted to ICU for serial neuro checks and active management of BP for cord per fusion" ICU Timeline: 04/19/2018: ICU admission secondary to need for serial neuro checks due to acute neuro c hanges and paralysis 04/20: Slight improvement in sensation in LUE; remains flaccid in RUE; LP performed. SUBJECTIVE: Patient seen and examine. Complaint of pain at the surgical site. Continue to have a weakne ss in the right arm. Still having a numbness.. No chest pain, SOB, NARVAEZ. No cough on recumben cy. Had no orthopnea or PND. No Abdominal pain, N/V or fever. Still feeling tired and fatigu ed. No dizziness or lightheadedness. Scheduled Medications: baclofen 10 mg Oral TID bisacodyl 10 mg Rectal Daily docusate sodium 200 mg Oral BID enoxaparin 40 mg Subcutaneous Q24H gabapentin 900 mg Oral TID influenza vaccine quadrivalent 0.5 mL Intramuscular Once Immunization methocarbamol 500 mg Oral TID nortriptyline 25 mg Oral Nightly pantoprazole 40 mg Oral QAM AC predniSONE 20 mg Oral QPM sodium bicarbonate buffer 5 mL Infiltration Once Continuous Infusions PRN Medications acetaminophen OR acetaminophen, calcium carbonate, HYDROmorphone OR HYDROmorphone, magnesium hydroxide, melatonin, naloxone, nystatin, nystatin, ondansetron OR ondansetron , oxyCODONE OR oxyCODONE OR oxyCODONE, petrolatum, polyethylene glycol, saline lock IV - when tolerating PO fluids AND sodium chloride (PF), sodium chloride 0.9 % Allergy: No Known Allergies OBJECTIVE: Vitals: Patient Vitals for the past 24 hrs: BP Temp Temp src Pulse Resp SpO2 04/22/18 0742 123/84 99 F (37.2 C) Oral 123 17 94 % 04/21/18 2312 141/86 98.2 F (36.8 C) Oral 95 16 92 % 04/21/18 1956 137/86 98 F (36.7 C) Oral 94 16 92 % 04/21/18 1900 - - Oral - - - 04/21/18 1514 (!) 144/91 97.9 F (36.6 C) Oral 75 16 98 % 04/21/18 1400 (!) 134/99 - - 95 12 97 % 04/21/18 1300 (!) 155/97 - - 101 20 96 % 04/21/18 1200 (!) 144/93 97.8 F (36.6 C) Oral 102 11 95 % 04/21/18 1105 139/80 - - 100 14 97 % 04/21/18 1000 (!) 140/94 - - 84 13 97 % I&O Detailed Table: Intake/Output Summary (Last 24 hours) at 04/22/18 0920 Last data filed at 04/22/18 0540 Gross per 24 hour Intake 2100 ml Output 4105 ml Net -2005 ml Patient Vitals for the past 96 hrs: Weight 04/19/18 1530 89.2 kg (196 lb 10.4 oz) 04/19/18 0717 91.5 kg (201 lb 11.5 oz) Hemodynamics Last 24hrs: Physical Examination: Constitutional: Alert and oriented to person, place, and time. HEENT: Neck supple, no JVD, non icteric sclera. Cardiovascular: Normal rate S1, S2 Pulmonary/Chest: Chest clear b/l Abdominal: Soft. NT Bs+ Extremeties/Musculoskeletal: Not having any edema. Neurological: Alert and oriented to person, place, and time. Power is 1 out of 5 in the ri ght arm. Decreased sensation. Skin: Skin is warm and dry. No rash noted. No erythema. No pallor. Psychiatric: Has a normal mood and affect. Behavior is normal. Judgment normal. Not suicida l LABS: Recent Labs Lab 04/22/18 0438 04/21/18 1345 04/20/18 0636 04/19/18 0738 WBC 26.51* 28.46* 15.44* 7.19 HGB 13.1* 13.9 13.9 14.3 HCT 40.7 43.9 41.9 42.5 PLT 330 357 337 334 NEUTOPHILPCT -- -- -- 68.28 MONOPCT -- -- -- 8.81 Recent Labs Lab 04/22/18 0438 04/21/18 0438 04/20/18 0636 NA 139 144 143 K 4.0 4.5 | 4.4 4.3 CL 102 107 106 CO2 28 26 23 BUN 18 14 15 CREATININE 0.9 0.80 0.97 Phosphorus: Lab Results Component Value Date PHOS 2.8 04/22/2018 Recent Labs Lab 04/22/18 0438 04/21/18 0438 MG 2.1 1.9 Recent Labs Lab 04/19/18 0738 APTT 27 INR 1.0 Results Procedure Component Value Units Date/Time CSF culture w/gram stain [[id number]] Collected: 04/20/18 1600 Specimen: Cerebrospinal Fluid from CSF Updated: 04/21/18 1743 Specimen Description CEREBROSPINAL FLUID GRAM STAIN 3+ GRAM STAIN WBC'S SEEN GRAM STAIN NO ORGANISMS SEEN CULTURE NO GROWTH AT THIS TIME MARCELL Prep - Fungal stain, CSF [[id number]] Collected: 04/20/18 1600 Specimen: Cerebrospinal Fluid from CSF Updated: 04/21/18 1255 Specimen Description CEREBROSPINAL FLUID CULTURE NO YEAST OR FUNGAL ELEMENTS SEEN CSF cell count with differential [[id number]] (Abnormal) Collected: 04/20/18 1600 Specimen: Cerebrospinal Fluid from Lumbar Puncture Updated: 04/20/182026 COLOR PINK APPEARANCE HAZY Tube Number, CSF 3 CSF RBC 17,675 (H) /mm3 CSF WBC 11 (H) /mm3 NEUTROPHILS 35 % LYMPHOCYTES 6 % CELLS COUNTED 41 Protein, CSF [[id number]] (Abnormal) Collected: 04/20/181599 Specimen: Cerebrospinal Fluid from Lumbar Puncture Updated: 04/20/182004 CSF TOTAL PROTEIN 55 (H) mg/dL Glucose, CSF [[id number]] (Abnormal) Collected: 04/20/181599 Specimen: Cerebrospinal Fluid from Lumbar Puncture Updated: 04/20/182004 CSF GLUCOSE 108 (H) mg/dL VDRL, CSF [[id number]] Collected: 04/20/181599 Specimen: Cerebrospinal Fluid from Lumbar Puncture Updated: 04/20/181856 CSF IgG index [[id number]] Collected: 04/20/181599 Specimen: Cerebrospinal Fluid from Lumbar Puncture Updated: 04/20/181856 Myelin basic protein, CSF [[id number]] Collected: 04/20/181599 Specimen: Cerebrospinal Fluid from Lumbar Puncture Updated: 04/20/181856 Angiotensin converting enzyme, CSF [[id number]] Collected: 04/20/181599 Specimen: Cerebrospinal Fluid from Lumbar Puncture Updated: 04/20/181856 HSV 1/2 detect/diff by rtpcr : for antigen testing on CSF, newborns & immuno-compromised. [[id number]] Collected: 04/20/181599 Specimen: Cerebrospinal Fluid from CSF Updated: 04/20/181856 Neuromyelitis optica IgG, CSF [[id number]] Collected: 04/20/18 1600 Updated: 04/20/18 165 MRSA by PCR [[id number]] Collected: 04/19/182108 Specimen: Nasopharyngeal from Nares(Nose) Updated: 04/19/182238 SOURCE NARES(NOSE) MRSA PCR NEGATIVE Diagnostic Imaging: Impressions only: Mri Brain With And Without Contrast Result Date: 04/20/2018 1. No acute infarction, acute intracranial hemorrhage, cerebral edema pathological mass ef fect. 2. Small nonspecific 6 mm FLAIR hyperintense focus in the right posterior pericallosa l region is stable compared to an MRI from 09/14/2016. Given the location this may represent a small demyelinating focus however no other lesions are visualized. Clinical correlation is recommended. Signed by: MD Arin, Nubia Sign Date/Time: 04/20/2018 6:56 AM Mri Cervical Spine Without Contrast Result Date: 04/19/2018 1. Postsurgical changes are noted with anterior cervical fusion from C5 through C7 with dec ompression laminectomies posteriorly. 2. There is newly developed T2 signal throughout the c ervical cord with fusiform swelling. There appears to be potential susceptibility artifact along the paracentral region of the cord which could reflect some hemorrhage. Differential considerations would include a cord contusion versus possible ADEM in the appropriate clinic al context. Given that this does not occur along a typical vascular distribution, cord infar ct with subsequent hemorrhage is thought to be unlikely but not excluded. This appears to e xtend into the thoracic cord and if indicated, further assessment of the thoracic cord could be performed with dedicated MRI. The edema is thought to be acute. 3. There is potential i mpingement of the left C5 and C7 nerve root. 4. Critical result: Imaging findings are discus sed with the ordering provider by telephone at 1:25 p.m.. Signed by: Darryl Pat Sign Da te/Time: 04/19/2018 1:30 PM Mri Thoracic Spine With And Without Contrast Result Date: 04/20/2018 1. The previously visualized abnormal spinal cord edema in the cervical spinal cord is see n extending in the thoracic spinal cord up to the level of T4, below which the cord shows no rmal signal intensity and caliber. This abnormal cord signal appears to be slightly eccentr ic towards the right side and involves the central cord. No abnormal enhancement noted. Sig michelle by: MD Arin, Nubia Sign Date/Time: 04/20/2018 7:02 AM Mra Spine With And Without Contrast Result Date: 04/20/2018 1. There is no enhancement of the cord to suggest active demyelination. Additionally, no en hancement of the cord or surrounding the cord likely excludes a dural AVF and/or AVM of the cord as the etiology of hemorrhage. Differential considerations of etiology of the hemorrha ge within the cord remain unchanged and may possibly include spontaneous hemorrhage versus p ressure gradient differences status post decompression versus underlying bleeding diathesis. Signed by: Darryl Pat Sign Date/Time: 04/20/2018 2:52 PM X-ray C-arm Fluoro Up To 1 Hour Result Date: 04/19/2018 Intraoperative fluoroscopic assessment. Signed by: Jose C Russell Sign Date/Time: 04/19/2018 2 :42 PM PROBLEM LIST Active Problems: Cervical myelopathy (HCC) S/P laminectomy Resolved Problems: * No resolved hospital problems. * ASSESSMENT & PLAN 42 y.o.malewith a Diagnoses of Cervical radiculopathy at C6, Cervical radiculopathy at C7, and DDD (degenerative disc disease) underwent CERVICAL-LAMINECTOMY POSTERIOR (N/A) - Pos terior Cervical Laminectomy, Foraminotomy five to seven today. Intraoperatively had h some hypotension requiring vasopressin otherwise uncomplicated per r eport. Post op, he was noted to have no movement of right arm or fingers, some muscle twitch ing noted in the forearm. Active Problems: Cervical myelopathy (HCC) S/P laminectomy. Postoperatively he was hypotensive. He was noted to have a weakness on the right arm and finger with muscle twitching. Decreased sensation in the abdominal wall as well. More likely related to ADEM versus contusion versus infarct. He had a slight movement in her right arm today. Blood pressure is better now. He had a urinary retention more likel y stent to the central cord syndrome. His tachycardia could be central versus due to the duy n. I will try Inderal. Resolved Problems: * No resolved hospital problems. * Patient diagnosed with: , and I agree with the following nutritional recommendations: MUNDO GHOSH MD, FACP 04/22/2018 9:20 AM Dictation software, Kont[employer], used which may contain error for similar sounding words even af ter review. Personal communication requested for any clarification. Portions of this chart may have been copied from previous notes for continuity of care purp ose Douglas Lopes DO - 04/22/2018 7:33 AM PST Progress Notes by Douglas Logan DO at 04/22/18732 Author: Douglas Logan DO Service: Neurosurgery Author Type: Physician Filed: 04/23/1835 Date of Service: 04/22/18732 Status: Signed Damper Maker: Douglas Logan DO (Physician) Neurosurgery Progress Note - Post Operative Provider: Douglas Logan DO Date : 04/23/2018 8:33 AM Referring Provider: Code Status: Full Code Hospital Day: LOS: 4 days Patient ID: [id number] Matthias Lambertis a 41 y.o.malewith severe cervical stenosis status post anterior cervical discectomy and fusion C5-C6 C6-7 with resolution of his radicular pa in market improvement in symptoms with only routine postoperative surgical pain and trapeziu s muscle spasm. Clinic Visit 04/19/2018: Matthias Lambert is a 42 y.o. male returns to neurosurgery clinic with N eurosurgical followup status post anterior cervical diskectomy and fusion C5-7. Patient unf ortunately is a [facility] patient, and despite our insistence, was not offered postoperative foll owup and followed with the local [facility] physician. 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 Patient was doing rather well for approximately 6 to 8 months until he started h aving intermittent tingling down his left hand in the C6 and C7 dermatomal region. This has returned and increased in nature. He was evaluated by his [facility] physician, who correctly or dered a CT myelogram of the cervical and lumbar spine, which showed that there was some bony overgrowth which had reoccurred at the fusion sites including C5-6, C6-7, more towards the left neural foramen, and may be the etiology of the patient's recurrent symptoms. This is a n over-healing and over-productive bone formation versus scar tissue which has compressed th e exiting nerves. Patient, during the interim, also states he has undergone other intervent ions. Recently had an ocular infection, for which he has had drainage and treatment only a few days ago. Patient denies any profound or severe weakness of the right upper extremity. Left upper extremity has improved in strength since his initial preop state, but states nidia t it was better few months ago. 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 Patient has been trying Neurontin; but because the [facility] controlled the s ubstances, not been getting it all the time. Patient does have what appears to be a lot of medical concerns for someone in [facility]. Admission Date - >04/19/2018 < - OR Date - Procedure(s) with comments: CERVICAL - LAMINECTOMY POSTERIOR (N/A) - Posterior Cervical Laminectomy, Foraminotomy five to seven. Possible adjacent levels. - post op with paradoxical right UE RLE paralysis and h ypersensitivity on left side MRI imaging with diffuse edema in non operated and operated reg ions of the cervical and thoracic spine possibly diffuse demyelinating process Hospital Course: 04/20/2018 3:04 PM - RUE with some movement of hand, return of strength in RLE. Improvement of hypersensitivity of LUE LLE. 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 P colt was worked up for MS and told at a time that he may have a subtype of the disease. 04/21/2018 2:01 PM - marginal improvements in sensation and movement 04/22/2018 7:34 AM - Patient with some return of pain related to steroid wean Subjective Past Medical History Diagnosis Date GERD (gastroesophageal reflux disease) History of stomach ulcers Neuromyopathy (HCC) Other chronic pain Seizures (HCC) 2002 none since then Social History Social History Marital status: Unknown Spouse name: N/A Number of children: 1 Years of education: GED+ Occupational History Not on file. Social History Main Topics Smoking status: Former Smoker Quit date: 04/29/2001 Smokeless tobacco: Never Used Alcohol use No Drug use: Yes Types: Marijuana Sexual activity: Not on file Other Topics Concern Not on file Social History Narrative No narrative on file Family History Problem Relation Age of Onset Other (see comments) Father Brain tumor Cancer Other Diabetes Other No Known Allergies Objective Vital Signs: Last: Last 24hrs Vitals: 04/23/18 0743 BP: 105/67 Pulse: 113 Resp: 16 Temp: 102.1 F (38.9 C) SpO2: 91% Temp: [98.4 F (36.9 C)-102.1 F (38.9 C)] 102.1 F (38.9 C) Heart Rate: [103-144] 113 Resp: [16-19] 16 BP: (105-149)/(67-85) 105/67 Intake/Output Summary (Last 24 hours) at 04/23/18 0833 Last data filed at 04/23/18 0415 Gross per 24 hour Intake 1000 ml Output 300 ml Net 700 ml No intake/output data recorded. 04/21 1900 - 04/23 0659 In: 1000 [P.O.:1000] Out: 775 [Urine:775] Vent Settings Last 24hrs: PHYSICAL EXAM: General: Pleasant, awake, alert, and oriented. In no acute distress, well developed, well n ourished. Speech fluent and approriate Skin:Skin color, texture, turgor normal. No rashes or lesions. HEENT: Normocephalic atraumatic Muscle Strength: Right Left Upper Extremity: 1/5 hand movement and palpable bicept and forearm 5/5 Lower Extremity: 4/5 5/5 Wound:Clean, dry, and intact. No evidence of wound breakdown or infection Sensation: diffus e parasthesias Recent Labs Lab 04/23/185 04/22/18 0438 WBC 28.19* 26.51* RBC 5.04 4.57 HGB 14.7 13.1* HCT 45.0 40.7 PLT 307 330 BANDSABS 2.82* 2.12* Recent Labs Lab 04/19/18 0738 APTT 27 INR 1.0 Recent Labs Lab 04/23/185 04/22/18 0438 NA 139 139 K 3.9 4.0 CL 104 102 CO2 25 28 ANIONGAP 14 13 GLUF 116* 123* BUN 20 18 CREATININE 1.0 0.9 BCR 20 20 CA 8.3* 8.4* PHOS 2.5 2.8 MG 2.2 2.1 No results found for: COLORU, CLARITYU, MEROPENEM, LEUKOCYTESUR, NITRITE, UROBILINOGEN, UP RO, PHUR, BLOODU, KETONES, BILIRUBINUR, GLUCOSEU No results found for: TROPONINI Scheduled Medications: baclofen 10 mg Oral TID bisacodyl 10 mg Rectal Daily docusate sodium 200 mg Oral BID enoxaparin 40 mg Subcutaneous Q24H gabapentin 900 mg Oral TID methocarbamol 500 mg Oral TID nortriptyline 25 mg Oral Nightly pantoprazole 40 mg Oral QAM AC propranolol 10 mg Oral 4x Daily sodium bicarbonate buffer 5 mL Infiltration Once PRN Medications: acetaminophen OR acetaminophen, calcium carbonate, diazePAM, HYDROmorphone OR HYDRO morphone, magnesium hydroxide, melatonin, naloxone, nystatin, nystatin, ondansetron OR o ndansetron, oxyCODONE OR oxyCODONE OR oxyCODONE, petrolatum, polyethylene glycol, sa line lock IV - when tolerating PO fluids AND sodium chloride (PF), sodium chloride 0.9 % Continuous Infusions Patient Active Problem List Diagnosis Date Noted Cervical myelopathy (HCC) 04/21/2018 S/P laminectomy 04/21/2018 Cervical radiculopathy at C7 11/04/2016 Cervical radiculopathy at C6 11/04/2016 DDD (degenerative disc disease), cervical 11/04/2016 Muscle weakness of upper extremity 11/04/2016 Bilateral carpal tunnel syndrome 08/26/2016 Assessment/Plan Matthias Lambert is a 42 y.o. male with cervical foraminal stenosis status post Procedure(s) wit h comments: CERVICAL - LAMINECTOMY POSTERIOR (N/A) - Posterior Cervical Laminectomy, Foraminotomy five to seven. Possible adjacent levels. - Admit Date - 04/19/2018 - Operative date - paradoxical cervical and thoracic spinal cord edema even in non operated segments without evidence of A VM likely attacking acute demyelinating process Plan : 1. CSF full analysis pending minor elevation in protein and possible bloody tap. 2. Removed cervical drain 3. Pain managed 4. PT/OT 5. Continue close observation and ICU care maintain MAP >80. 6. Course discussed with patient who expressed frustration of these neurologic attacks as arron moreno has had this happen in the past with his vision/seizures/headaches and wants to obtain a d iagnosis. 7. Steroid dose wean to PO. It is a pleasure being involved in this patients care should any questions or concerns jeff e feel free to contact me at any time. Douglas Logan D.O Board Certified Neurosurgeon [facility] Office Kerry Clay MD - 04/21/2018 2:07 PM PST Progress Notes by Kerry Subramanian MD at 04/21/18 6449 Author: Kerry Subramanian MD Service: Neurology Author Type: Physician Filed: 04/21/18 1610 Date of Service: 04/21/18 1407 Status: Signed Damper Maker: Kerry Subramanian MD (Physician) [facility] Service: Neurology Follow up Note Date of Admission: 04/19/2018 Attending Physician: Douglas Logan DO, JOSE History Obtained From: chart review, discussed with Douglas Logan DO, HISTORY OF PRESENT ILLNESS Summary history: 42 yo man with chronic neck pain with radicular symptoms to his left upper extremity underw ent cervical laminectomy 04/19, reported uncomplicated surgery by Dr. Logan except noted hyp otensive episodes. Postoperatively, new flaccid weakness of the right arm, pain and hyperthesia of left arm an d from neck down to waist. MRI of the cervical spine 04/19 revealed T2 signal throughout the cervical cord with mostly llanes matter involvement from C1 to upper T cord with fusiform swelling with abnormal signal concerning for paracentral cord hemorrhage. MRI brain no acute change, no evidence of acute demyelinaing process or stroke. MRI cervical spine and thoracic spine no evidence of enhancement. MRA no AVM. His neurological examination remains right arm flaccid weakness, slightly improved sensatio n of right arm, sensory change of touch and temperature from neck to waist, reduced pain of the left arm. CSF tube 3 noted pink/hazy appearance with RBC 17,675, WBC 11, mildly elevated protein and high glucose. Corrected WBC with RBC, no evidence of infection or acute inflammatory process at this poin t, traumatic tap vs ADMITTED ATTORNEYS hemorrhage. The rest of the CSF study pending. Discussed result with Dr. Logan and Madelyn. Prescriptions Prior to Admission Medication Sig Dispense Refill Last Dose capsaicin (ZOSTRIX) 0.025 % cream Apply topically 2 (two) times daily. Taking at Unk nown time diphenhydrAMINE (BENADRYL) 50 MG capsule Take 50 mg by mouth every 6 (six) hours as nee ded for Itching. 04/18/2018 at Unknown time nortriptyline (PAMELOR) 25 MG capsule Take 25 mg by mouth nightly. 04/18/2018 at Unkno wn time omeprazole (PRILOSEC) 20 MG capsule Take 20 mg by mouth every morning before breakfast. 04/18/2018 at Unknown time ranitidine (ZANTAC) 300 MG tablet Take 300 mg by mouth nightly. Taking at Unknown oswaldo e traMADol (ULTRAM) 50 MG tablet Take 100 mg by mouth 3 (three) times daily. 04/18/2018 at Unknown time DULoxetine (CYMBALTA) 30 MG capsule Take 30 mg by mouth daily. Not Taking at Unknown time gabapentin (NEURONTIN) 600 MG tablet Take 300 mg by mouth 3 (three) times daily. Not Taking at Unknown time Scheduled Medications bisacodyl 10 mg Rectal Daily docusate sodium 200 mg Oral BID DULoxetine 30 mg Oral Daily enoxaparin 40 mg Subcutaneous Q24H gabapentin 900 mg Oral TID [START ON 04/22/2018] influenza vaccine quadrivalent 0.5 mL Intramuscular Once Immuniza tion methocarbamol 500 mg Oral TID nortriptyline 25 mg Oral Nightly pantoprazole 40 mg Oral QAM AC predniSONE 20 mg Oral QPM predniSONE 40 mg Oral Daily with breakfast sodium bicarbonate buffer 5 mL Infiltration Once Continuous Infusions PRN Medications acetaminophen OR acetaminophen, calcium carbonate, HYDROmorphone OR HYDROmorphone, magnesium hydroxide, melatonin, naloxone, nystatin, nystatin, ondansetron OR ondansetron , oxyCODONE OR oxyCODONE OR oxyCODONE, petrolatum, polyethylene glycol, saline lock IV - when tolerating PO fluids AND sodium chloride (PF), sodium chloride 0.9 % PHYSICAL EXAM Vital Signs: BP (!) 144/93 (BP Location: Right upper arm) | Pulse 102 | Temp 97.8 F (36.6 C) (Oral ) | Resp 11 | Ht 1.803 m (5' 11") | Wt 89.2 kg (196 lb 10.4 oz) | SpO2 95% | BMI 27.43 kg/m Temp: [97.7 F (36.5 C)-98.4 F (36.9 C)] 97.8 F (36.6 C) (04/21 1200) BP: (117-164)/(65-105) 134/99 (04/21 1400) Heart Rate: [62-111] 95 (04/21 1400) Resp: [7-20] 12 (04/21 1400) SpO2: [90 %-98 %] 97 % (04/21 1400) Neurological Examination: CBC: Lab Results Component Value Date WBC 15.44 (H) 04/20/2018 RBC 4.78 04/20/2018 HGB 13.9 04/20/2018 HCT 41.9 04/20/2018 MCV 87.7 04/20/2018 MCH 29.0 04/20/2018 MCHC 33.1 04/20/2018 RDW 41.6 04/20/2018 PLT 337 04/20/2018 MPV 6.7 04/20/2018 DIFFTYPE MANUAL 04/20/2018 CMP: Lab Results Component Value Date NA 144 04/21/2018 K 4.4 04/21/2018 K 4.5 04/21/2018 CL 107 04/21/2018 CO2 26 04/21/2018 ANIONGAP 16 04/21/2018 GLUF 137 (H) 04/21/2018 BUN 14 04/21/2018 CREATININE 0.80 04/21/2018 BCR 18 04/21/2018 CA 8.3 (L) 04/21/2018 EGFR >60 04/21/2018 Lab Results Component Value Date GLUCCSF 108 (H) 04/20/2018 PROTEINCSF 55 (H) 04/20/2018 RBCCSF 17,675 (H) 04/20/2018 WBCCSF 11 (H) 04/20/2018 CSF tube 3, pink and haze appearance Mri Brain With And Without Contrast Result Date: 04/20/2018 1. No acute infarction, acute intracranial hemorrhage, cerebral edema pathological mass ef fect. 2. Small nonspecific 6 mm FLAIR hyperintense focus in the right posterior pericallosa l region is stable compared to an MRI from 09/14/2016. Given the location this may represent a small demyelinating focus however no other lesions are visualized. Clinical correlation is recommended. Signed by: MD Arin, Nubia Sign Date/Time: 04/20/2018 6:56 AM Mri Cervical Spine Without Contrast Result Date: 04/19/2018 1. Postsurgical changes are noted with anterior cervical fusion from C5 through C7 with dec ompression laminectomies posteriorly. 2. There is newly developed T2 signal throughout the c ervical cord with fusiform swelling. There appears to be potential susceptibility artifact along the paracentral region of the cord which could reflect some hemorrhage. Differential considerations would include a cord contusion versus possible ADEM in the appropriate clinic al context. Given that this does not occur along a typical vascular distribution, cord infar ct with subsequent hemorrhage is thought to be unlikely but not excluded. This appears to e xtend into the thoracic cord and if indicated, further assessment of the thoracic cord could be performed with dedicated MRI. The edema is thought to be acute. 3. There is potential i mpingement of the left C5 and C7 nerve root. 4. Critical result: Imaging findings are discus sed with the ordering provider by telephone at 1:25 p.m.. Signed by: Darryl Pat Sign Da te/Time: 04/19/2018 1:30 PM Mri Thoracic Spine With And Without Contrast Result Date: 04/20/2018 1. The previously visualized abnormal spinal cord edema in the cervical spinal cord is see n extending in the thoracic spinal cord up to the level of T4, below which the cord shows no rmal signal intensity and caliber. This abnormal cord signal appears to be slightly eccentr ic towards the right side and involves the central cord. No abnormal enhancement noted. Sig michelle by: MD Arin, Nubia Sign Date/Time: 04/20/2018 7:02 AM Mra Spine With And Without Contrast Result Date: 04/20/2018 1. There is no enhancement of the cord to suggest active demyelination. Additionally, no en hancement of the cord or surrounding the cord likely excludes a dural AVF and/or AVM of the cord as the etiology of hemorrhage. Differential considerations of etiology of the hemorrha ge within the cord remain unchanged and may possibly include spontaneous hemorrhage versus p ressure gradient differences status post decompression versus underlying bleeding diathesis. Signed by: Darryl Pat Sign Date/Time: 04/20/2018 2:52 PM X-ray C-arm Fluoro Up To 1 Hour Result Date: 04/19/2018 Intraoperative fluoroscopic assessment. Signed by: Jose C Russell Sign Date/Time: 04/19/2018 2 :42 PM PROBLEM LIST Active Problems: Cervical myelopathy (HCC) S/P laminectomy ASSESSMENT & PLAN 42 yo man with chronic neck pain with radicular symptoms to his left upper extremity underw ent cervical laminectomy 04/19, reported uncomplicated surgery by Dr. Logan except noted hyp otensive episodes. Postoperatively, new flaccid weakness of the right arm, pain and hyperthesia of left arm an d from neck down to waist. MRI of the cervical spine 04/19 revealed T2 signal throughout the cervical cord with mostly llanes matter involvement from C1 to upper T cord with fusiform swelling with abnormal signal concerning for paracentral cord hemorrhage. MRI brain no acute change, no evidence of acute demyelinaing process or stroke. MRI cervical spine and thoracic spine no evidence of enhancement. MRA no AVM. CSF tube 3 noted pink/hazy appearance with RBC 17,675, WBC 11, mildly elevated protein and high glucose. Corrected WBC with RBC, no evidence of infection or acute inflammatory process at this poin t, traumatic tap vs ADMITTED ATTORNEYS hemorrhage. The rest of the CSF studies including MS panels are pend ing. Discussed result with Dr. Logan and Madelyn. He was treated with Solumedrol IV1 gm per day for three days and noted improvement of his s ensory symptoms but no change of his flaccid motor weakness of the right arm. The differential diagnosis of his presentation including spinal cord ischemia (anterior spi nal artery distribution) with secondary hemorrhagic transformation or spinal cord hemorrhage of unclear etiology but less likely demyelinating process with sudden onset of flaccid weak ness postop and MRI evidence of predominant llanes matter involvement without enhancement and evidence of some cord hemorrhage and preliminary CSF findings. Continue to monitor symptoms closely including autonomic dysfunction with extensive spinal cord involvement. I do not have a clear cut diagnosis for him, the patient is quite frustrated about ongoing problems. He may benefit from additional opinion from [facility]. Current management per Dr. Logan and Mortar Mixer. Please call neuro on-call for any new neurological changes or questions. Please call for any new neurological changes or questions. Code Status: Full Code Primary Care Physician: Per PT None Thank you for allowing me to participate in the care of this patient. I have discussed my recommendations with the attending physician. TACHO SUBRAMANIAN MD 04/21/2018 Douglas Lopes DO - 04/21/2018 2:01 PM PST Progress Notes by Douglas Logan DO at 04/21/18 1401 Author: Douglas Logan DO Service: Neurosurgery Author Type: Physician Filed: 04/21/18 6423 Date of Service: 04/21/18 1401 Status: Signed Damper Maker: Douglas Logan DO (Physician) Neurosurgery Progress Note - Post Operative Provider: Douglas Logan DO Date : 04/21/2018 2:01 PM Referring Provider: Code Status: Full Code Hospital Day: LOS: 2 days Patient ID: [id number] Matthias Lambertis a 41 y.o.malewith severe cervical stenosis status post anterior cervical discectomy and fusion C5-C6 C6-7 with resolution of his radicular pa in market improvement in symptoms with only routine postoperative surgical pain and trapeziu s muscle spasm. Clinic Visit 04/19/2018: Matthias Lambert is a 42 y.o. male returns to neurosurgery clinic with N eurosurgical followup status post anterior cervical diskectomy and fusion C5-7. Patient unf rachtunately is a [facility] patient, and despite our insistence, was not offered postoperative foll owup and followed with the local [facility] physician. 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 Patient was doing rather well for approximately 6 to 8 months until he started h aving intermittent tingling down his left hand in the C6 and C7 dermatomal region. This has returned and increased in nature. He was evaluated by his [facility] physician, who correctly or dered a CT myelogram of the cervical and lumbar spine, which showed that there was some bony overgrowth which had reoccurred at the fusion sites including C5-6, C6-7, more towards the left neural foramen, and may be the etiology of the patient's recurrent symptoms. This is a n over-healing and over-productive bone formation versus scar tissue which has compressed th e exiting nerves. Patient, during the interim, also states he has undergone other intervent ions. Recently had an ocular infection, for which he has had drainage and treatment only a few days ago. Patient denies any profound or severe weakness of the right upper extremity. Left upper extremity has improved in strength since his initial preop state, but states nidia t it was better few months ago. 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 Patient has been trying Neurontin; but because the [facility] controlled the s ubstances, not been getting it all the time. Patient does have what appears to be a lot of medical concerns for someone in [facility]. Admission Date - >04/19/2018 < - OR Date - Procedure(s) with comments: CERVICAL - LAMINECTOMY POSTERIOR (N/A) - Posterior Cervical Laminectomy, Foraminotomy five to seven. Possible adjacent levels. - post op with paradoxical right UE RLE paralysis and h ypersensitivity on left side MRI imaging with diffuse edema in non operated and operated reg ions of the cervical and thoracic spine possibly diffuse demyelinating process Hospital Course: 04/20/2018 3:04 PM - RUE with some movement of hand, return of strength in RLE. Improvement of hypersensitivity of LUE LLE. 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 Jovan gregory was worked up for MS and told at a time that he may have a subtype of the disease. 04/21/2018 2:01 PM - marginal improvements in sensation and movement Subjective Past Medical History Diagnosis Date GERD (gastroesophageal reflux disease) History of stomach ulcers Neuromyopathy (HCC) Other chronic pain Seizures (HCC) 2002 none since then Social History Social History Marital status: Unknown Spouse name: N/A Number of children: 1 Years of education: GED+ Occupational History Not on file. Social History Main Topics Smoking status: Former Smoker Quit date: 04/29/2001 Smokeless tobacco: Never Used Alcohol use No Drug use: Yes Types: Marijuana Sexual activity: Not on file Other Topics Concern Not on file Social History Narrative No narrative on file Family History Problem Relation Age of Onset Other (see comments) Father Brain tumor Cancer Other Diabetes Other No Known Allergies Objective Vital Signs: Last: Last 24hrs Vitals: 04/21/18 1200 BP: (!) 144/93 Pulse: 102 Resp: 11 Temp: 97.8 F (36.6 C) SpO2: 95% Temp: [97.7 F (36.5 C)-98.4 F (36.9 C)] 97.8 F (36.6 C) Heart Rate: [62-111] 102 Resp: [7-20] 11 BP: (117-164)/(65-105) 144/93 Intake/Output Summary (Last 24 hours) at 04/21/18 1401 Last data filed at 04/21/18 1300 Gross per 24 hour Intake 6886.03 ml Output 7600 ml Net -713.97 ml 04/21 0700 - 04/21 1858 In: 1850 [P.O.:1850] Out: 2125 [Urine:2125] 04/19 1900 - 04/21 0659 In: 5459 [P.O.:4000; I.V.:1459] Out: 7695 [Urine:7500; Drains:195] Vent Settings Last 24hrs: PHYSICAL EXAM: General: Pleasant, awake, alert, and oriented. In no acute distress, well developed, well n ourished. Speech fluent and approriate Skin:Skin color, texture, turgor normal. No rashes or lesions. HEENT: Normocephalic atraumatic Muscle Strength: Right Left Upper Extremity: 1/5 hand movement and palpable bicept and forearm 5/5 Lower Extremity: 4/5 5/5 Wound:Clean, dry, and intact. No evidence of wound breakdown or infection Sensation: diffus e parasthesias Recent Labs Lab 04/20/18 0636 04/19/18 0738 WBC 15.44* 7.19 RBC 4.78 4.81 HGB 13.9 14.3 HCT 41.9 42.5 PLT 337 334 Recent Labs Lab 04/19/18 0738 APTT 27 INR 1.0 Recent Labs Lab 04/21/18 0438 04/20/18 0636 NA 144 143 K 4.5 | 4.4 4.3 CL 107 106 CO2 26 23 ANIONGAP 16 18 GLUF 137* 160* BUN 14 15 CREATININE 0.80 0.97 BCR 18 15 CA 8.3* 8.7 PHOS 3.2 -- MG 1.9 -- No results found for: COLORU, CLARITYU, MEROPENEM, LEUKOCYTESUR, NITRITE, UROBILINOGEN, UP RO, PHUR, BLOODU, KETONES, BILIRUBINUR, GLUCOSEU No results found for: TROPONINI Scheduled Medications: bisacodyl 10 mg Rectal Daily docusate sodium 200 mg Oral BID DULoxetine 30 mg Oral Daily enoxaparin 40 mg Subcutaneous Q24H gabapentin 900 mg Oral TID [START ON 04/22/2018] influenza vaccine quadrivalent 0.5 mL Intramuscular Once Immuniza tion methocarbamol 500 mg Oral TID [START ON 04/22/2018] methylPREDNISolone 500 mg Intravenous Daily nortriptyline 25 mg Oral Nightly pantoprazole 40 mg Oral QAM AC sodium bicarbonate buffer 5 mL Infiltration Once PRN Medications: acetaminophen OR acetaminophen, calcium carbonate, HYDROmorphone OR HYDROmorphone, magnesium hydroxide, melatonin, naloxone, nystatin, nystatin, ondansetron OR ondansetron , oxyCODONE OR oxyCODONE OR oxyCODONE, petrolatum, polyethylene glycol, saline lock IV - when tolerating PO fluids AND sodium chloride (PF), sodium chloride 0.9 % Continuous Infusions Patient Active Problem List Diagnosis Date Noted Cervical myelopathy (HCC) 04/21/2018 S/P laminectomy 04/21/2018 Cervical radiculopathy at C7 11/04/2016 Cervical radiculopathy at C6 11/04/2016 DDD (degenerative disc disease), cervical 11/04/2016 Muscle weakness of upper extremity 11/04/2016 Bilateral carpal tunnel syndrome 08/26/2016 Assessment/Plan Matthias Lambert is a 42 y.o. male with cervical foraminal stenosis status post Procedure(s) wit h comments: CERVICAL - LAMINECTOMY POSTERIOR (N/A) - Posterior Cervical Laminectomy, Foraminotomy five to seven. Possible adjacent levels. - Admit Date - 04/19/2018 - Operative date - paradoxical cervical and thoracic spinal cord edema even in non operated segments without evidence of A VM likely attacking acute demyelinating process Plan : 1. CSF full analysis pending minor elevation in protein and possible bloody tap. 2. Removed cervical drain 3. Pain managed 4. PT/OT 5. Continue close observation and ICU care maintain MAP >80. 6. Course discussed with patient who expressed frustration of these neurologic attacks as arron moreno has had this happen in the past with his vision/seizures/headaches and wants to obtain a d iagnosis. 7. Steroid dose wean to PO. It is a pleasure being involved in this patients care should any questions or concerns jeff e feel free to contact me at any time. Douglas Logan D.O Board Certified Neurosurgeon [facility] Office onversion Transactprincess n, Provider Unknown - 04/21/2018 10:51 AM PST Case Management by PARDEEP Nuñez at 04/21/18 1051 Author: PARDEEP Nuñez Service: (none) Author Type: Oil Well Service Operator Filed: 04/21/18 1050 Date of Service: 04/21/18 105 Status: Signed Damper Maker: PARDEEP Nuñez (Oil Well Service Operator) PARDEEP CM attended morning rounds. Followed by Dr. Colindres and carlos. Madelyn Roque ARNP - 04/21/2018 7:27 AM PSTFormatting of this note might be different from th e original. Progress Notes by DELANEY Robb at 04/21/18726 Author: DELANEY Robb Service: Mortar Mixer Author Type: Advanced Registered Korina se Practitioner Filed: 04/21/18 8565 Date of Service: 04/21/18726 Status: Signed Damper Maker: DELANEY Robb (Advanced Registered Nurse Practitioner) [facility] Service: Mortar Mixer Progress Note Matthias Lambert 42 y.o. Hospital Day: LOS: 2 days Post-Op Day: 1 Day Post-Op Consulting Physicians Treatment Team: Admitting Provider: Douglas Logan DO SUBJECTIVE Patient Summary: From Dr. Romero's consult note 04/19/2018: "42 y.o.malewith a Diagnoses of Cervical radiculopathy at C6, Cervical radiculopathy at C7, and DDD (degenerat aguila disc disease) underwent CERVICAL-LAMINECTOMY POSTERIOR (N/A) - Posterior Cervical Hever ctomy, Foraminotomy five to seven today. Intraoperatively had h some hypotension requiring vasopressin otherwise uncomplicated per r eport. Post op, he was noted to have no movement of right arm or fingers, some muscle twitch ing noted in the forearm. As well severe paresthesias in b/l UE, L>R and from thigh upwards over entire trunk. MRI done emergently showed following findings : There is newly developed T2 signal throughout the cervical cord with fusiform swelling. There appears to be potential susceptibility artifact along the paracentral region of the cord which could reflect some hemorrhage. Differential considerations would include a cord contusion versus possible ADEM in the appropriate clinical context. Given that this does not occur along a typical vascular distribution, cord infarct with subsequent hemorrhage is thought to be unlikely but not excluded. This appears to extend into the thoracic cord and if indicated, further assessment of the thoracic cord could be performed with dedicated MRI. The edema is thought to be acute. Patient is admitted to ICU for serial neuro checks and active management of BP for cord per fusion" ICU Timeline: 04/19/2018: ICU admission secondary to need for serial neuro checks due to acute neuro c hanges and paralysis 04/20: Slight improvement in sensation in LUE; remains flaccid in RUE; LP performed. Events Overnight: Continued improvement in sensation; improved motor function on LUE. LP cultures pending. Hemodynamically stable. Afebrile. SCHEDULED MEDICATIONS bisacodyl 10 mg Rectal Daily chlorhexidine gluconate 15 mL Mouth/Throat Q12H docusate sodium 200 mg Oral BID DULoxetine 30 mg Oral Daily enoxaparin 40 mg Subcutaneous Q24H gabapentin 900 mg Oral TID methocarbamol 500 mg Oral TID methylPREDNISolone 1,000 mg Intravenous Daily nortriptyline 25 mg Oral Nightly pantoprazole 40 mg Oral QAM AC sodium bicarbonate buffer 5 mL Infiltration Once CONTINUOUS INFUSIONS OBJECTIVE VITAL SIGNS Temp: [97.6 F (36.4 C)-98.4 F (36.9 C)] 98.4 F (36.9 C) Heart Rate: [62-111] 85 Resp: [7-20] 11 BP: (117-164)/(65-105) 131/88 Intake/Output Summary (Last 24 hours) at 04/21/18 0727 Last data filed at 04/21/18 0600 Gross per 24 hour Intake 4036.03 ml Output 6285 ml Net -2248.97 ml EXAM GEN:awake, alert, oriented x3, NAD; conversant with clear speech. NEURO:PERRL, EOMI, no facial asymmetry, flaccid paralysis RUE, LUE 4/5. No deficits in BL E. Sensation reported in BUE, anterior chest, and absent in abdomen and shoulders. HEENT:sclerae clear, nonicteric, oral mmm NECK: trachea midline CV:RRR, S1/S2, no murmur, rub or gallop, peripheral pulses palpable, cap refill brisk LUNGS: clear b/l, no wheezing, rales or rhonchi, symmetric chest expansion, even/unlabored respirations on room air. ABD:soft, nondistended, nontender to palpation, bowel sounds present EXTR:no edema, clubbing or cyanosis SKIN:warm, dry, no rash or mottling LINES: piv, brown DATA Recent Labs Lab 04/20/18 0636 04/19/18 0738 WBC 15.44* 7.19 RBC 4.78 4.81 HGB 13.9 14.3 HCT 41.9 42.5 MCV 87.7 88.5 MCH 29.0 29.7 MCHC 33.1 33.6 RDW 41.6 42.9 PLT 337 334 MPV 6.7 6.9 NEUTROABS -- 4.91 LYMPHSABS -- 1.30 MONOSABS -- 0.63 BASOSABS -- 0.04 EOSABS -- 0.31 MORPH RBC AND PLT MORPHOLOGY APPEAR NORMAL -- Recent Labs Lab 04/21/18 0438 04/20/18 0636 04/19/18 0738 NA -- 143 147* K 4.4 4.3 3.9 CL -- 106 109 CO2 -- 23 29 ANIONGAP -- 18 13 GLUF -- 160* 80 BUN -- 15 9 CREATININE -- 0.97 1.02 BCR -- 15 9 CA -- 8.7 8.9 EGFR -- >60 >60 PHOS 3.2 -- -- MG 1.9 -- -- Recent Labs Lab 04/19/18 0738 INR 1.0 IMAGING No new imaging. PROBLEM LIST Active Problems: Cervical myelopathy (HCC) S/P laminectomy Resolved Problems: * No resolved hospital problems. * ASSESSMENT & PLAN NEURO: New onset cervical myelopathy with cervical and thoracic spinal cord edema s/p cervical laminectomy cause unclear: MRI findings concerning for ADEM vs contusion vs infarct. Dr. Subramanian, neurology, consulted and following. Started on high dose steroids LP performed to check for demyelinating disease or infectious etiologies; results pending Continue post operative management per neurosurgery recommendations. Neuro checks per protocol. Pain management: continue narcotics plus gabapentin and muscle relaxants. CV: Continue to monitor hemodynamics. Maintain MAP >80 per NS recommendations. Has not required vasopressor support. PULM: On room air. Protecting airway GI/NUTRITION: General diet. RENAL/LYTES: No acute issues. Urinary retention most likely secondary to central cord syndrome; continue brown cathete r. ID: No acute issues. Received one dose cefazolin for surgical prophylaxis. HEME: Leukocytosis likely reactionary. Monitor CBC ENDO: No acute issues. MUSC: PT/OT when able per neurosurgery. PROPHYLAXIS: Stress ulcer prophylaxis: NA DVT prophylaxis: SCD, enoxaparin VAP: NA Disposition: ICU plan of care as above. Updated patient regarding plan of care. Patient st able for transfer out of the ICU. Will transfer to the surgical floor with hospitalist consu lt per Dr. Logan recommendations. Code Status: Full Code *Please bill 40 minutes of high complexity time spent evaluating the patient, reviewing the data and formulating a plan exclusive of all other procedures. DELANEY Robb 04/21/2018 enry, MD Kerry - 04/20/2018 4:30 PM PST Progress Notes by Kerry Subramanian MD at 04/20/18 1630 Author: Kerry Subramanian MD Service: Neurology Author Type: Physician Filed: 04/21/18 1032 Date of Service: 04/20/18 1630 Status: Signed Damper Maker: Kerry Subramanian MD (Physician) [facility] Service: Neurology Follow up Note Date of Admission: 04/19/2018 Attending Physician: Douglas Logan DO, Hospitalist History Obtained From: chart review, discussed with Douglas Logan DO, patient HISTORY OF PRESENT ILLNESS Summary history: 42 yo man with chronic neck pain with radicular symptoms to his left upper extremity underw ent cervical laminectomy 04/19, reported uncomplicated surgery by Dr. Logan except noted hyp otensive episodes. Reviewed OR anesthesia record, had period of hypotension with SBP below 40-60 of unclear du ration/ Postoperatively, he noted flaccid weakness of the right arm, pain and hyperthesia of left a rm and from neck down to waist. He had MRI of the cervical spine 04/19 revealed T2 signal throughout the cervical cord from C1 to upper T cord with fusiform swelling. There appears to be potential susceptibility art ifact along the paracentral region of the cord which could reflect some hemorrhage. Overnight events: He received IVSM 1 gm and also on higher dose of gabapentin, he reports reduced painful hyp erthesia of his left arm, he is able to use his left arm. Unfortunately, he continues to hav e flaccid weakness of his right arm. He has no change of his motor or sensory function of hi s lower extremities. He has brown catheter in place. Denies SOB or dysphagia. No bulbar symp toms. No clear evidence of BP change. He had MRI of the brain today, no new lesions or acute change, no enhancement. MRI of the thoracic spine noted abnormal spinal cord edema in the cervical spinal cord is s een extending in the thoracic spinal cord up to the level of T4, below which the cord shows normal signal intensity and caliber. This abnormal cord signal appears to be slightly eccen tric towards the right side and involves the central cord. No abnormal enhancement noted. MRA of spine no evidence of dural AVF or AVM. I reviewed the images with radiologist again today, no evidence of enhancement, mostly cord abnormal T2 signal involved the cord llanes matter. Unlikely demyelinating process, other differential diagnosis including cord ischemia with s econdary hemorraghic transformation or primary cord hemorrhage. Prescriptions Prior to Admission Medication Sig Dispense Refill Last Dose capsaicin (ZOSTRIX) 0.025 % cream Apply topically 2 (two) times daily. Taking at Unk nown time diphenhydrAMINE (BENADRYL) 50 MG capsule Take 50 mg by mouth every 6 (six) hours as nee ded for Itching. 04/18/2018 at Unknown time nortriptyline (PAMELOR) 25 MG capsule Take 25 mg by mouth nightly. 04/18/2018 at Unkno wn time omeprazole (PRILOSEC) 20 MG capsule Take 20 mg by mouth every morning before breakfast. 04/18/2018 at Unknown time ranitidine (ZANTAC) 300 MG tablet Take 300 mg by mouth nightly. Taking at Unknown oswaldo e traMADol (ULTRAM) 50 MG tablet Take 100 mg by mouth 3 (three) times daily. 04/18/2018 at Unknown time DULoxetine (CYMBALTA) 30 MG capsule Take 30 mg by mouth daily. Not Taking at Unknown time gabapentin (NEURONTIN) 600 MG tablet Take 300 mg by mouth 3 (three) times daily. Not Taking at Unknown time Scheduled Medications bisacodyl 10 mg Rectal Daily chlorhexidine gluconate 15 mL Mouth/Throat Q12H docusate sodium 200 mg Oral BID DULoxetine 30 mg Oral Daily enoxaparin 40 mg Subcutaneous Q24H gabapentin 900 mg Oral TID methocarbamol 500 mg Oral TID methylPREDNISolone 1,000 mg Intravenous Daily nortriptyline 25 mg Oral Nightly pantoprazole 40 mg Oral QAM AC sodium bicarbonate buffer 5 mL Infiltration Once Continuous Infusions PRN Medications acetaminophen OR acetaminophen, calcium carbonate, diazePAM, HYDROmorphone OR HYDRO morphone, ketorolac, magnesium hydroxide, magnesium sulfate OR magnesium sulfate OR magnesium sulfate OR magnesium sulfate, melatonin, naloxone, nystatin, nystatin, ondanse john OR ondansetron, oxyCODONE OR oxyCODONE OR oxyCODONE, petrolatum, phosphorus OR sodium phosphate IVPB 20 mmol OR sodium phosphate IVPB 45 mmol, polyethylene gly col, potassium OR potassium OR potassium OR potassium chloride OR potassium chloride OR potassium chloride, saline lock IV - when tolerating PO fluids AND sodiu m chloride (PF), sodium chloride 0.9 % PHYSICAL EXAM Vital Signs: BP 131/88 | Pulse 85 | Temp 98.4 F (36.9 C) | Resp 11 | Ht 1.803 m (5' 11") | Wt 8 9.2 kg (196 lb 10.4 oz) | SpO2 98% | BMI 27.43 kg/m Temp: [97.6 F (36.4 C)-98.4 F (36.9 C)] 98.4 F (36.9 C) (04/21 0400) BP: (117-164)/(65-105) 131/88 (04/21 0700) Heart Rate: [62-111] 85 (04/21 0700) Resp: [7-20] 11 (04/21 699) SpO2: [90 %-98 %] 98 % (04/21 699) Neurological Examination: Neurological Examination: Alert and oriented times three. Fluent speech. Following commands. Provide medi crescencio history without difficulty. Neck supple. CN: II-XII grossly intact. Of note, normal visual acuity OU, PERRLA, EOMI, visual fiel d full to confrontation. Sensory symmetrical to pinprick, light touch and temperature. No fa cial asymmetry or weakness. Hearing symmetrical. Tongue midline. Motor: Right arm 0/5, flaccid, left arm 5- proximal and hand 4+. Moving lower extremities spontaneously without clear evidence of weakness. DTR: Symmetry. absent upper extremities, 2+ bilateral knee, 1+ankles. Bilateral flexor p lantar response. Mcneil negative. Sensory: Reduced to lightly touch and temperature of upper extremities and neck to waist, normal positional sense of upper extremities. Motor integration: No abnormal movement. Gait: NT CBC: Lab Results Component Value Date WBC 15.44 (H) 04/20/2018 RBC 4.78 04/20/2018 HGB 13.9 04/20/2018 HCT 41.9 04/20/2018 MCV 87.7 04/20/2018 MCH 29.0 04/20/2018 MCHC 33.1 04/20/2018 RDW 41.6 04/20/2018 PLT 337 04/20/2018 MPV 6.7 04/20/2018 DIFFTYPE MANUAL 04/20/2018 CMP: Lab Results Component Value Date NA 144 04/21/2018 K 4.4 04/21/2018 K 4.5 04/21/2018 CL 107 04/21/2018 CO2 26 04/21/2018 ANIONGAP 16 04/21/2018 GLUF 137 (H) 04/21/2018 BUN 14 04/21/2018 CREATININE 0.80 04/21/2018 BCR 18 04/21/2018 CA 8.3 (L) 04/21/2018 EGFR >60 04/21/2018 Pending CSF result. Mri Brain With And Without Contrast Result Date: 04/20/2018 1. No acute infarction, acute intracranial hemorrhage, cerebral edema pathological mass ef fect. 2. Small nonspecific 6 mm FLAIR hyperintense focus in the right posterior pericallosa l region is stable compared to an MRI from 09/14/2016. Given the location this may represent a small demyelinating focus however no other lesions are visualized. Clinical correlation is recommended. Signed by: MD Hinkle Sadaf Sign Date/Time: 04/20/2018 6:56 AM Mri Cervical Spine Without Contrast Result Date: 04/19/2018 1. Postsurgical changes are noted with anterior cervical fusion from C5 through C7 with dec ompression laminectomies posteriorly. 2. There is newly developed T2 signal throughout the c ervical cord with fusiform swelling. There appears to be potential susceptibility artifact along the paracentral region of the cord which could reflect some hemorrhage. Differential considerations would include a cord contusion versus possible ADEM in the appropriate clinic al context. Given that this does not occur along a typical vascular distribution, cord infar ct with subsequent hemorrhage is thought to be unlikely but not excluded. This appears to e xtend into the thoracic cord and if indicated, further assessment of the thoracic cord could be performed with dedicated MRI. The edema is thought to be acute. 3. There is potential i mpingement of the left C5 and C7 nerve root. 4. Critical result: Imaging findings are discus sed with the ordering provider by telephone at 1:25 p.m.. Signed by: Darryl Pat Sign Da te/Time: 04/19/2018 1:30 PM Mri Thoracic Spine With And Without Contrast Result Date: 04/20/2018 1. The previously visualized abnormal spinal cord edema in the cervical spinal cord is see n extending in the thoracic spinal cord up to the level of T4, below which the cord shows no rmal signal intensity and caliber. This abnormal cord signal appears to be slightly eccentr ic towards the right side and involves the central cord. No abnormal enhancement noted. Sig michelle by: MD Arin, Nubia Sign Date/Time: 04/20/2018 7:02 AM Mra Spine With And Without Contrast Result Date: 04/20/2018 1. There is no enhancement of the cord to suggest active demyelination. Additionally, no en hancement of the cord or surrounding the cord likely excludes a dural AVF and/or AVM of the cord as the etiology of hemorrhage. Differential considerations of etiology of the hemorrha ge within the cord remain unchanged and may possibly include spontaneous hemorrhage versus p ressure gradient differences status post decompression versus underlying bleeding diathesis. Signed by: Darryl Pat Sign Date/Time: 04/20/2018 2:52 PM X-ray C-arm Fluoro Up To 1 Hour Result Date: 04/19/2018 Intraoperative fluoroscopic assessment. Signed by: Jose C Russell Sign Date/Time: 04/19/2018 2 :42 PM PROBLEM LIST Active Problems: Cervical myelopathy (HCC) S/P laminectomy ASSESSMENT & PLAN 42 yo man with chronic neck pain with radicular symptoms to his left upper extremity underw ent cervical laminectomy 04/19, reported uncomplicated surgery by Dr. Logan except noted hyp otensive episodes. Postoperatively, new flaccid weakness of the right arm, pain and hyperthesia of left arm an d from neck down to waist. MRI of the cervical spine 04/19 revealed T2 signal throughout the cervical cord with mostly llanes matter involvement from C1 to upper T cord with fusiform swelling with abnormal signal concerning for paracentral cord hemorrhage. MRI brain no acute change, no evidence of acute demyelinaing process or stroke. MRI cervical spine and thoracic spine no evidence of enhancement. MRA no AVM. His neurological examination today remains right arm flaccid weakness and diminished DTR, s ensory change of touch and temperature from neck to waist, reduced pain of the left arm. The differential diagnosis of his presentation including spinal cord ischemia (anterior spi nal artery distribution) with secondary hemorrhagic transformation but less likely demyelina ting process with sudden onset of flaccid weakness postop and MRI evidence of predominant gr ey matter involvement without enhancement and evidence of some cord hemorrhage. The patient is pending to have cerebrospinal fluid study hope to provide additional informa tion, including cell counts, MS panel, NMO antibody. Continue to monitor symptoms closely including autonomic dysfunction with extensive spinal cord involvement. Please call for any new neurological changes or questions. Code Status: Full Code Primary Care Physician: Per PT None Thank you for allowing me to participate in the care of this patient. I have discussed my recommendations with the attending physician Dr. Logan and LOU Joshi. . TACHO SUBRAMANIAN MD 04/21/2018 Douglas Lopes DO - 04/20/2018 3:04 PM PST Progress Notes by Douglas Logan DO at 04/20/18 3584 Author: Douglas Logan DO Service: Neurosurgery Author Type: Physician Filed: 04/20/18 1515 Date of Service: 04/20/18 1504 Status: Signed Damper Maker: Douglas Logan DO (Physician) Neurosurgery Progress Note - Post Operative Provider: Douglas Logan DO Date : 04/20/2018 3:04 PM Referring Provider: Code Status: Full Code Hospital Day: LOS: 1 day Patient ID: [id number] Matthias Lambertis a 41 y.o.malewith severe cervical stenosis status post anterior cervical discectomy and fusion C5-C6 C6-7 with resolution of his radicular pa in market improvement in symptoms with only routine postoperative surgical pain and trapeziu s muscle spasm. Clinic Visit 04/19/2018: Matthias Lambert is a 42 y.o. male returns to neurosurgery clinic with N eurosurgical followup status post anterior cervical diskectomy and fusion C5-7. Patient rolan delucaunately is a [facility] patient, and despite our insistence, was not offered postoperative foll owup and followed with the local [facility] physician. 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 Patient was doing rather well for approximately 6 to 8 months until he started h aving intermittent tingling down his left hand in the C6 and C7 dermatomal region. This has returned and increased in nature. He was evaluated by his [facility] physician, who correctly or dered a CT myelogram of the cervical and lumbar spine, which showed that there was some bony overgrowth which had reoccurred at the fusion sites including C5-6, C6-7, more towards the left neural foramen, and may be the etiology of the patient's recurrent symptoms. This is a n over-healing and over-productive bone formation versus scar tissue which has compressed th e exiting nerves. Patient, during the interim, also states he has undergone other intervent ions. Recently had an ocular infection, for which he has had drainage and treatment only a few days ago. Patient denies any profound or severe weakness of the right upper extremity. Left upper extremity has improved in strength since his initial preop state, but states nidia t it was better few months ago. 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 Patient has been trying Neurontin; but because the [facility] controlled the s ubstances, not been getting it all the time. Patient does have what appears to be a lot of medical concerns for someone in [facility]. Admission Date - >04/19/2018 < - OR Date - Procedure(s) with comments: CERVICAL - LAMINECTOMY POSTERIOR (N/A) - Posterior Cervical Laminectomy, Foraminotomy five to seven. Possible adjacent levels. - post op with paradoxical right UE RLE paralysis and h ypersensitivity on left side MRI imaging with diffuse edema in non operated and operated reg ions of the cervical and thoracic spine possibly diffuse demyelinating process Hospital Course: 04/20/2018 3:04 PM - RUE with some movement of hand, return of strength in RLE. Improvement of hypersensitivity of LUE LLE. 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 P colt was worked up for MS and told at a time that he may have a subtype of the disease. Subjective Past Medical History Diagnosis Date GERD (gastroesophageal reflux disease) History of stomach ulcers Neuromyopathy (HCC) Other chronic pain Seizures (HCC) 2002 none since then Social History Social History Marital status: Unknown Spouse name: N/A Number of children: 1 Years of education: GED+ Occupational History Not on file. Social History Main Topics Smoking status: Former Smoker Quit date: 04/29/2001 Smokeless tobacco: Never Used Alcohol use No Drug use: Yes Types: Marijuana Sexual activity: Not on file Other Topics Concern Not on file Social History Narrative No narrative on file Family History Problem Relation Age of Onset Other (see comments) Father Brain tumor Cancer Other Diabetes Other No Known Allergies Objective Vital Signs: Last: Last 24hrs Vitals: 04/20/18 1300 BP: (!) 142/91 Pulse: 105 Resp: 17 Temp: SpO2: 98% Temp: [97.6 F (36.4 C)-98.8 F (37.1 C)] 97.6 F (36.4 C) Heart Rate: [79-124] 105 Resp: [8-38] 17 BP: (131-164)/(74-93) 142/91 Intake/Output Summary (Last 24 hours) at 04/20/18 1504 Last data filed at 04/20/18 1442 Gross per 24 hour Intake 777.07 ml Output 3315 ml Net -2537.93 ml 04/20 0700 - 04/20 1859 In: - Out: 1160 [Urine:1160] 04/18 1900 - 04/20 0659 In: 1777.1 [I.V.:1777.1] Out: 2355 [Urine:2045; Drains:110] Vent Settings Last 24hrs: PHYSICAL EXAM: General: Pleasant, awake, alert, and oriented. In no acute distress, well developed, well n ourished. Speech fluent and approriate Skin:Skin color, texture, turgor normal. No rashes or lesions. HEENT: Normocephalic atraumatic Muscle Strength: Right Left Upper Extremity: 1/5 hand movement and palpable bicept and forearm 5/5 Lower Extremity: -4/5 5/5 Wound:Clean, dry, and intact. No evidence of wound breakdown or infection Sensation: diffus e parasthesias Recent Labs Lab 04/20/18 0636 04/19/18 0738 WBC 15.44* 7.19 RBC 4.78 4.81 HGB 13.9 14.3 HCT 41.9 42.5 PLT 337 334 Recent Labs Lab 04/19/18 0738 APTT 27 INR 1.0 Recent Labs Lab 04/20/18 0636 04/19/18 0738 NA 143 147* K 4.3 3.9 CL 106 109 CO2 23 29 ANIONGAP 18 13 GLUF 160* 80 BUN 15 9 CREATININE 0.97 1.02 BCR 15 9 CA 8.7 8.9 No results found for: COLORU, CLARITYU, MEROPENEM, LEUKOCYTESUR, NITRITE, UROBILINOGEN, UP RO, PHUR, BLOODU, KETONES, BILIRUBINUR, GLUCOSEU No results found for: TROPONINI Scheduled Medications: chlorhexidine gluconate 15 mL Mouth/Throat Q12H docusate sodium 200 mg Oral BID DULoxetine 30 mg Oral Daily [START ON 04/21/2018] enoxaparin 40 mg Subcutaneous Q24H gabapentin 900 mg Oral TID methocarbamol 500 mg Oral TID methylPREDNISolone 1,000 mg Intravenous Daily nortriptyline 25 mg Oral Nightly pantoprazole 40 mg Oral QAM AC PRN Medications: acetaminophen OR acetaminophen, bisacodyl, calcium carbonate, diazePAM, HYDROmorphone * *OR HYDROmorphone, ketorolac, magnesium hydroxide, magnesium sulfate OR magnesium sulf ate OR magnesium sulfate OR magnesium sulfate, melatonin, naloxone, nystatin, nystat in, ondansetron OR ondansetron, oxyCODONE OR oxyCODONE OR oxyCODONE, petrolatum, phosphorus OR sodium phosphate IVPB 20 mmol OR sodium phosphate IVPB 45 mmol, potas sium OR potassium OR potassium OR potassium chloride OR potassium chloride * *OR potassium chloride, saline lock IV - when tolerating PO fluids AND sodium chloride (PF), sodium chloride 0.9 % Continuous Infusions Patient Active Problem List Diagnosis Date Noted Cervical radiculopathy at C7 11/04/2016 Cervical radiculopathy at C6 11/04/2016 DDD (degenerative disc disease), cervical 11/04/2016 Muscle weakness of upper extremity 11/04/2016 Bilateral carpal tunnel syndrome 08/26/2016 Assessment/Plan Matthias Lambert is a 42 y.o. male with cervical foraminal stenosis status post Procedure(s) wit h comments: CERVICAL - LAMINECTOMY POSTERIOR (N/A) - Posterior Cervical Laminectomy, Foraminotomy five to seven. Possible adjacent levels. - Admit Date - 04/19/2018 - Operative date - paradoxical cervical and thoracic spinal cord edema even in non operated segments without evidence of A VM likely attacking acute demyelinating process Plan : 1. Pending LP with CSF analysis to r/o demyelinating disease 2. Continue Cervical drain 3. Pain managed 4. PT/OT 5. Continue close observation and ICU care maintain MAP >80. 6. Course discussed with patient who expressed frustration of these neurologic attacks as arron moreno has had this happen in the past with his vision/seizures/headaches and wants to obtain a d iagnosis. 7. Steroid dose x 3 doses then will wean. It is a pleasure being involved in this patients care should any questions or concerns jeff e feel free to contact me at any time. Douglas Logan D.O Board Certified Neurosurgeon [facility] Office onversion Transactio n, Provider Unknown - 04/20/2018 2:58 PM PST Progress Notes by Jurgen Bowen RPH at 04/20/181457 Author: Jurgen Bowen RPH Service: Pharmacy Author Type: Pharmacist Filed: 04/20/181457 Date of Service: 04/20/181457 Status: Signed Damper Maker: Jurgen Bowen RPH (Pharmacist) Renal Dosing Monitoring: S: Renal dose monitoring per protocol. O: Estimated Creatinine Clearance: 103.5 mL/min (by C-G formula based on SCr of 0.97 mg/dL) . I/O (mL): -/- Dialysis?: - A: No adjustments needed at this time. P: Pharmacy will continue monitoring patient for appropriate dosing based on renal functio n. Pharmacist: Jurgen Bowen, PharmD onver antonio Transaction, Provider Unknown - 04/20/2018 11:27 AM PST Case Management by PARDEEP Nuñez at 04/20/18 1127 Author: PARDEEP Nuñez Service: (none) Author Type: Oil Well Service Operator Filed: 04/20/18 1134 Date of Service: 04/20/181126 Status: Signed Damper Maker: PARDEEP Nuñez (Oil Well Service Operator) PARDEEP CM attended morning rounds. C7 fusion with Dr. Colindres. Pt is a prisoner from [facility]. Madelyn Roque ARNP - 04/20/2018 9:00 AM PSTFormatting of this note might be different from th e original. Progress Notes by DELANEY Robb at 04/20/18 0900 Author: DELANEY Robb Service: Mortar Mixer Author Type: Advanced Registered Korina se Practitioner Filed: 04/20/181931 Date of Service: 04/20/18899 Status: Signed Damper Maker: DELANEY Robb (Advanced Registered Nurse Practitioner) [facility] Service: Mortar Mixer Progress Note Matthias Lambert 42 y.o. Hospital Day: LOS: 1 day Post-Op Day: 1 Day Post-Op Consulting Physicians Treatment Team: Admitting Provider: Douglas Logan DO SUBJECTIVE Patient Summary: From Dr. Romero's consult note 04/19/2018: "42 y.o.malewith a Diagnoses of Cervical radiculopathy at C6, Cervical radiculopathy at C7, and DDD (degenerat aguila disc disease) underwent CERVICAL-LAMINECTOMY POSTERIOR (N/A) - Posterior Cervical Hever ctomy, Foraminotomy five to seven today. Intraoperatively had h some hypotension requiring vasopressin otherwise uncomplicated per r eport. Post op, he was noted to have no movement of right arm or fingers, some muscle twitch ing noted in the forearm. As well severe paresthesias in b/l UE, L>R and from thigh upwards over entire trunk. MRI done emergently showed following findings : There is newly developed T2 signal throughout the cervical cord with fusiform swelling. There appears to be potential susceptibility artifact along the paracentral region of the cord which could reflect some hemorrhage. Differential considerations would include a cord contusion versus possible ADEM in the appropriate clinical context. Given that this does not occur along a typical vascular distribution, cord infarct with subsequent hemorrhage is thought to be unlikely but not excluded. This appears to extend into the thoracic cord and if indicated, further assessment of the thoracic cord could be performed with dedicated MRI. The edema is thought to be acute. Patient is admitted to ICU for serial neuro checks and active management of BP for cord per fusion" ICU Timeline: 04/19/2018: ICU admission secondary to need for serial neuro checks due to acute neuro c hanges and paralysis Events Overnight: Slight improvement in sensation in LUE; remains flaccid in RUE SCHEDULED MEDICATIONS chlorhexidine gluconate 15 mL Mouth/Throat Q12H docusate sodium 200 mg Oral BID DULoxetine 30 mg Oral Daily [START ON 04/21/2018] enoxaparin 40 mg Subcutaneous Q24H famotidine 40 mg Oral Daily gabapentin 900 mg Oral TID methocarbamol 500 mg Oral TID methylPREDNISolone 1,000 mg Intravenous Daily nortriptyline 25 mg Oral Nightly pantoprazole 40 mg Oral QAM AC pneumococcal 23-valent vaccine 0.5 mL Intramuscular Once Immunization CONTINUOUS INFUSIONS OBJECTIVE VITAL SIGNS Temp: [97.2 F (36.2 C)-98.8 F (37.1 C)] 98.8 F (37.1 C) Heart Rate: [64-124] 111 Resp: [8-38] 8 BP: (97-164)/(50-92) 139/84 FiO2 : [47 %-80 %] 79 % Intake/Output Summary (Last 24 hours) at 04/20/18 0900 Last data filed at 04/20/18 0638 Gross per 24 hour Intake 1177.07 ml Output 2355 ml Net -1177.93 ml EXAM GEN: awake, alert, oriented x3, NAD; conversant with clear speech. NEURO: PERRL, EOMI, no facial asymmetry, flaccid paralysis RUE, LUE 3/5. No deficits in BLE . Sensation absent in RUE, right anterior chest, and abdomen, sensation reported as pins and needles in left anterior chest and arm. Drain in posterior neck region. HEENT: sclerae clear, nonicteric, oral mmm NECK: trachea midline CV: tachycardia, S1/S2, no murmur, rub or gallop, peripheral pulses palpable, cap refill br isk LUNGS: clear b/l, no wheezing, rales or rhonchi, symmetric chest expansion, even/unlabored respirations ABD: soft, nondistended, nontender to palpation EXTR: no edema, clubbing or cyanosis SKIN: warm, dry, no rash or mottling LINES: piv, brown DATA Recent Labs Lab 04/20/18 0636 04/19/18 0738 WBC 15.44* 7.19 RBC 4.78 4.81 HGB 13.9 14.3 HCT 41.9 42.5 MCV 87.7 88.5 MCH 29.0 29.7 MCHC 33.1 33.6 RDW 41.6 42.9 PLT 337 334 MPV 6.7 6.9 NEUTROABS -- 4.91 LYMPHSABS -- 1.30 MONOSABS -- 0.63 BASOSABS -- 0.04 EOSABS -- 0.31 MORPH RBC AND PLT MORPHOLOGY APPEAR NORMAL -- Recent Labs Lab 04/20/18 0636 04/19/18 0738 NA 143 147* K 4.3 3.9 CL 106 109 CO2 23 29 ANIONGAP 18 13 GLUF 160* 80 BUN 15 9 CREATININE 0.97 1.02 BCR 15 9 CA 8.7 8.9 EGFR >60 >60 Recent Labs Lab 04/19/18 0738 INR 1.0 IMAGING Mri Brain With And Without Contrast Result Date: 04/20/2018 1. No acute infarction, acute intracranial hemorrhage, cerebral edema pathological mass ef fect. 2. Small nonspecific 6 mm FLAIR hyperintense focus in the right posterior pericallosa l region is stable compared to an MRI from 09/14/2016. Given the location this may represent a small demyelinating focus however no other lesions are visualized. Clinical correlation is recommended. Signed by: MD Arin, Nubia Sign Date/Time: 04/20/2018 6:56 AM Mri Cervical Spine Without Contrast Result Date: 04/19/2018 1. Postsurgical changes are noted with anterior cervical fusion from C5 through C7 with dec ompression laminectomies posteriorly. 2. There is newly developed T2 signal throughout the c ervical cord with fusiform swelling. There appears to be potential susceptibility artifact along the paracentral region of the cord which could reflect some hemorrhage. Differential considerations would include a cord contusion versus possible ADEM in the appropriate clinic al context. Given that this does not occur along a typical vascular distribution, cord infar ct with subsequent hemorrhage is thought to be unlikely but not excluded. This appears to e xtend into the thoracic cord and if indicated, further assessment of the thoracic cord could be performed with dedicated MRI. The edema is thought to be acute. 3. There is potential i mpingement of the left C5 and C7 nerve root. 4. Critical result: Imaging findings are discus sed with the ordering provider by telephone at 1:25 p.m.. Signed by: Darryl Pat Sign Da te/Time: 04/19/2018 1:30 PM Mri Thoracic Spine With And Without Contrast Result Date: 04/20/2018 1. The previously visualized abnormal spinal cord edema in the cervical spinal cord is see n extending in the thoracic spinal cord up to the level of T4, below which the cord shows no rmal signal intensity and caliber. This abnormal cord signal appears to be slightly eccentr ic towards the right side and involves the central cord. No abnormal enhancement noted. Sig michelle by: MD Arin, Nubia Sign Date/Time: 04/20/2018 7:02 AM Mra Spine With And Without Contrast Result Date: 04/20/2018 1. There is no enhancement of the cord to suggest active demyelination. Additionally, no en hancement of the cord or surrounding the cord likely excludes a dural AVF and/or AVM of the cord as the etiology of hemorrhage. Differential considerations of etiology of the hemorrha ge within the cord remain unchanged and may possibly include spontaneous hemorrhage versus p ressure gradient differences status post decompression versus underlying bleeding diathesis. Signed by: Darryl Pat Sign Date/Time: 04/20/2018 2:52 PM X-ray C-arm Fluoro Up To 1 Hour Result Date: 04/19/2018 Intraoperative fluoroscopic assessment. Signed by: Jose C Russell Sign Date/Time: 04/19/2018 2 :42 PM PROBLEM LIST Active Problems: * No active hospital problems. * Resolved Problems: * No resolved hospital problems. * ASSESSMENT & PLAN NEURO: New onset cervical myelopathy with cervical and thoracic spinal cord edema s/p cervical laminectomy cause unclear: MRI findings concerning for ADEM vs contusion vs infarct. Started on steroids. Dr. Subramanian, consulted and following. LP performed to check for demyelinating disease. Continue post operative management and cervical drain management per neurosurgery recomm endations. Neuro checks per protocol. Pain management: continue narcotics plus gabapentin and muscle relaxants. CV: Continue to monitor hemodynamics. Maintain MAP >80 per NS recommendations. PULM: On room air. Protecting airway GI/NUTRITION: General diet. RENAL/LYTES: No acute issues. ID: No acute issues. Received one dose cefazolin for surgical prophylaxis. HEME: Leukocytosis likely reactionary. Monitor CBC ENDO: No acute issues. MUSC: PT/OT when able per neurosurgery. PROPHYLAXIS: Stress ulcer prophylaxis: NA DVT prophylaxis: SCD VAP: NA Disposition: ICU plan of care as above. Updated patient regarding plan of care. Code Status: Full Code *Please bill 50 minutes of critical care time spent evaluating the patient, reviewing the d sandee and formulating a plan exclusive of all other procedures. DELANEY Robb 04/20/2018 onversion Transa ction, Provider Unknown - 04/19/2018 11:04 AM PST Nurse Progress Note by Oswaldo Paula RN at 04/19/18 1104 Author: Oswaldo Paula RN Service: (none) Author Type: Registered Nurse Filed: 04/19/18 1539 Date of Service: 04/19/18 1104 Status: Addendum Damper Maker: Oswaldo Paula RN (Registered Nurse) Related Notes: Original Note by Oswaldo Paula RN (Registered Nurse) filed at 04/19/18 5888 11:05 AM Patient able to move right toes and leg, very weak; no movement of right arm or fingers, so me muscle twitching noted in the forearm. 11:48 AM No change in above assessment. Dr. Logan evaluated patient. Awaiting MRI. 12:46 PM Returned from MRI; SpO2 96 to 97 during MRI with HR in the mid to upper 60's; No change in neuro status. 12:[address] Logan; plan to admit to ICU, he will contact intisivist; narcotics used sparingly during recovery due to severe BP fluctuations during surgery. Anesthesia aw are. 3:38 PM Transferred to ICU bedside report done with neuro assessment. onver antonio Transaction, Provider Unknown - 04/19/2018 7:50 AM PST Nurse Progress Note by Isabella Bruno RN at 04/19/18 5831 Author: Isabella Bruno RN Service: (none) Author Type: Registered Nurse Filed: 04/19/18 0806 Date of Service: 04/19/18 0750 Status: Signed Damper Maker: Isabella Bruno RN (Registered Nurse) Preformed the iodine treatment to the nares to prevent MRSA. docume nted in this encounter Plan of Treatment Not on filedocumented as of this encounter Procedures + +--------+ + + + | Procedure Name | Priori | Date/Time | Associated Diagnosis | Comments | | | ty | | | | + +--------+ + + + | EXTERNAL LAB: CBC | Routin | 05/03/2018 | | Results for this | | | e | 7:02 AM | | procedure are in the | | | | PST | | results section. | + +--------+ + + + | PHOSPHORUS | Routin | 05/03/2018 | | Results for this | | | e | 7:02 AM | | procedure are in the | | | | PST | | results section. | + +--------+ + + + | MAGNESIUM | Routin | 05/03/2018 | | Results for this | | | e | 7:02 AM | | procedure are in the | | | | PST | | results section. | + +--------+ + + + | BASIC METABOLIC | Routin | 05/03/2018 | | Results for this | | PANEL | e | 7:02 AM | | procedure are in the | | | | PST | | results section. | + +--------+ + + + | EXTERNAL LAB: CBC | Routin | 05/02/2018 | | Results for this | | | e | 5:42 AM | | procedure are in the | | | | PST | | results section. | + +--------+ + + + | PHOSPHORUS | Routin | 05/02/2018 | | Results for this | | | e | 5:42 AM | | procedure are in the | | | | PST | | results section. | + +--------+ + + + | MAGNESIUM | Routin | 05/02/2018 | | Results for this | | | e | 5:42 AM | | procedure are in the | | | | PST | | results section. | + +--------+ + + + | BASIC METABOLIC | Routin | 05/02/2018 | | Results for this | | PANEL | e | 5:42 AM | | procedure are in the | | | | PST | | results section. | + +--------+ + + + | EXTERNAL LAB: CBC | Routin | 05/01/2018 | | Results for this | | | e | 4:59 AM | | procedure are in the | | | | PST | | results section. | + +--------+ + + + | PHOSPHORUS | Routin | 05/01/2018 | | Results for this | | | e | 4:59 AM | | procedure are in the | | | | PST | | results section. | + +--------+ + + + | MAGNESIUM | Routin | 05/01/2018 | | Results for this | | | e | 4:59 AM | | procedure are in the | | | | PST | | results section. | + +--------+ + + + | BASIC METABOLIC | Routin | 05/01/2018 | | Results for this | | PANEL | e | 4:59 AM | | procedure are in the | | | | PST | | results section. | + +--------+ + + + | EXTERNAL LAB: CBC | Routin | 04/30/2018 | | Results for this | | | e | 4:00 AM | | procedure are in the | | | | PST | | results section. | + +--------+ + + + | PHOSPHORUS | Routin | 04/30/2018 | | Results for this | | | e | 4:00 AM | | procedure are in the | | | | PST | | results section. | + +--------+ + + + | MAGNESIUM | Routin | 04/30/2018 | | Results for this | | | e | 4:00 AM | | procedure are in the | | | | PST | | results section. | + +--------+ + + + | BASIC METABOLIC | Routin | 04/30/2018 | | Results for this | | PANEL | e | 4:00 AM | | procedure are in the | | | | PST | | results section. | + +--------+ + + + | EXTERNAL LAB: CBC | Routin | 04/29/2018 | | Results for this | | | e | 4:13 AM | | procedure are in the | | | | PST | | results section. | + +--------+ + + + | PHOSPHORUS | Routin | 04/29/2018 | | Results for this | | | e | 4:13 AM | | procedure are in the | | | | PST | | results section. | + +--------+ + + + | MAGNESIUM | Routin | 04/29/2018 | | Results for this | | | e | 4:13 AM | | procedure are in the | | | | PST | | results section. | + +--------+ + + + | BASIC METABOLIC | Routin | 04/29/2018 | | Results for this | | PANEL | e | 4:13 AM | | procedure are in the | | | | PST | | results section. | + +--------+ + + + | EXTERNAL LAB: CBC | Routin | 04/28/2018 | | Results for this | | | e | 4:23 AM | | procedure are in the | | | | PST | | results section. | + +--------+ + + + | PHOSPHORUS | Routin | 04/28/2018 | | Results for this | | | e | 4:23 AM | | procedure are in the | | | | PST | | results section. | + +--------+ + + + | MAGNESIUM | Routin | 04/28/2018 | | Results for this | | | e | 4:23 AM | | procedure are in the | | | | PST | | results section. | + +--------+ + + + | BASIC METABOLIC | Routin | 04/28/2018 | | Results for this | | PANEL | e | 4:23 AM | | procedure are in the | | | | PST | | results section. | + +--------+ + + + | EXTERNAL LAB: CBC | Routin | 04/27/2018 | | Results for this | | | e | 4:22 AM | | procedure are in the | | | | PST | | results section. | + +--------+ + + + | PHOSPHORUS | Routin | 04/27/2018 | | Results for this | | | e | 4:22 AM | | procedure are in the | | | | PST | | results section. | + +--------+ + + + | MAGNESIUM | Routin | 04/27/2018 | | Results for this | | | e | 4:22 AM | | procedure are in the | | | | PST | | results section. | + +--------+ + + + | BASIC METABOLIC | Routin | 04/27/2018 | | Results for this | | PANEL | e | 4:22 AM | | procedure are in the | | | | PST | | results section. | + +--------+ + + + | CALCIUM, IONIZED | Routin | 04/26/2018 | | Results for this | | | e | 10:53 AM | | procedure are in the | | | | PST | | results section. | + +--------+ + + + | TISSUE REQUEST FOR | Routin | 04/26/2018 | | Results for this | | PATHOLOGY (NON-ORD) | e | 7:00 AM | | procedure are in the | | | | PST | | results section. | + +--------+ + + + | EXTERNAL LAB: CBC | Routin | 04/26/2018 | | Results for this | | | e | 4:01 AM | | procedure are in the | | | | PST | | results section. | + +--------+ + + + | PHOSPHORUS | Routin | 04/26/2018 | | Results for this | | | e | 4:01 AM | | procedure are in the | | | | PST | | results section. | + +--------+ + + + | MAGNESIUM | Routin | 04/26/2018 | | Results for this | | | e | 4:01 AM | | procedure are in the | | | | PST | | results section. | + +--------+ + + + | BASIC METABOLIC | Routin | 04/26/2018 | | Results for this | | PANEL | e | 4:01 AM | | procedure are in the | | | | PST | | results section. | + +--------+ + + + | LACTIC ACID | Routin | 04/25/2018 | | Results for this | | | e | 9:05 PM | | procedure are in the | | | | PST | | results section. | + +--------+ + + + | LACTIC ACID | Routin | 04/25/2018 | | Results for this | | | e | 6:55 PM | | procedure are in the | | | | PST | | results section. | + +--------+ + + + | PROCALCITONIN, SERUM | Routin | 04/25/2018 | | Results for this | | | e | 6:47 PM | | procedure are in the | | | | PST | | results section. | + +--------+ + + + | CULTURE, ANAEROBIC | Routin | 04/25/2018 | | Results for this | | | e | 4:35 PM | | procedure are in the | | | | PST | | results section. | + +--------+ + + + | XR ABDOMEN AP | Routin | 04/25/2018 | | Results for this | | | e | 2:20 PM | | procedure are in the | | | | PST | | results section. | + +--------+ + + + | EXTERNAL LAB: CBC | Routin | 04/25/2018 | | Results for this | | | e | 4:06 AM | | procedure are in the | | | | PST | | results section. | + +--------+ + + + | PHOSPHORUS | Routin | 04/25/2018 | | Results for this | | | e | 4:06 AM | | procedure are in the | | | | PST | | results section. | + +--------+ + + + | MAGNESIUM | Routin | 04/25/2018 | | Results for this | | | e | 4:06 AM | | procedure are in the | | | | PST | | results section. | + +--------+ + + + | BASIC METABOLIC | Routin | 04/25/2018 | | Results for this | | PANEL | e | 4:06 AM | | procedure are in the | | | | PST | | results section. | + +--------+ + + + | HISTORICAL | Timed | 04/24/2018 | | Results for this | | MICROBIOLOGY RESULT | | 2:05 PM | | procedure are in the | | | | PST | | results section. | + +--------+ + + + | EXTERNAL LAB: OCCULT | Routin | 04/24/2018 | | Results for this | | BLOOD, SCREENING | e | 2:05 PM | | procedure are in the | | | | PST | | results section. | + +--------+ + + + | LACTIC ACID | Routin | 04/24/2018 | | Results for this | | | e | 4:29 AM | | procedure are in the | | | | PST | | results section. | + +--------+ + + + | EXTERNAL LAB: CBC | Routin | 04/24/2018 | | Results for this | | | e | 4:28 AM | | procedure are in the | | | | PST | | results section. | + +--------+ + + + | PHOSPHORUS | Routin | 04/24/2018 | | Results for this | | | e | 4:28 AM | | procedure are in the | | | | PST | | results section. | + +--------+ + + + | MAGNESIUM | Routin | 04/24/2018 | | Results for this | | | e | 4:28 AM | | procedure are in the | | | | PST | | results section. | + +--------+ + + + | BASIC METABOLIC | Routin | 04/24/2018 | | Results for this | | PANEL | e | 4:28 AM | | procedure are in the | | | | PST | | results section. | + +--------+ + + + | LACTIC ACID | Routin | 04/23/2018 | | Results for this | | | e | 9:58 PM | | procedure are in the | | | | PST | | results section. | + +--------+ + + + | LACTIC ACID | Routin | 04/23/2018 | | Results for this | | | e | 1:18 PM | | procedure are in the | | | | PST | | results section. | + +--------+ + + + | URINALYSIS WITH | Routin | 04/23/2018 | | Results for this | | MICROSCOPIC IF | e | 12:51 PM | | procedure are in the | | INDICATED | | PST | | results section. | + +--------+ + + + | URINALYSIS, | Routin | 04/23/2018 | | Results for this | | MICROSCOPIC ONLY | e | 12:51 PM | | procedure are in the | | | | PST | | results section. | + +--------+ + + + | CULTURE, URINE | Timed | 04/23/2018 | | Results for this | | | | 12:51 PM | | procedure are in the | | | | PST | | results section. | + +--------+ + + + | TROPONIN I | Routin | 04/23/2018 | | Results for this | | | e | 12:25 PM | | procedure are in the | | | | PST | | results section. | + +--------+ + + + | LACTATE | Routin | 04/23/2018 | | Results for this | | DEHYDROGENASE | e | 12:25 PM | | procedure are in the | | | | PST | | results section. | + +--------+ + + + | CK TOTAL | Routin | 04/23/2018 | | Results for this | | | e | 12:25 PM | | procedure are in the | | | | PST | | results section. | + +--------+ + + + | CT ABDOMEN PELVIS W | Routin | 04/23/2018 | | Results for this | | CONTRAST | e | 11:41 AM | | procedure are in the | | | | PST | | results section. | + +--------+ + + + | XR CHEST 1 VIEW | Routin | 04/23/2018 | | Results for this | | | e | 10:09 AM | | procedure are in the | | | | PST | | results section. | + +--------+ + + + | CULTURE, BLOOD, 2ND | Timed | 04/23/2018 | | Results for this | | SPECIMEN (NON-ORD) | | 8:58 AM | | procedure are in the | | | | PST | | results section. | + +--------+ + + + | CULTURE, BLOOD | Timed | 04/23/2018 | | Results for this | | | | 8:51 AM | | procedure are in the | | | | PST | | results section. | + +--------+ + + + | EXTERNAL LAB: CBC | Routin | 04/23/2018 | | Results for this | | | e | 4:15 AM | | procedure are in the | | | | PST | | results section. | + +--------+ + + + | PHOSPHORUS | Routin | 04/23/2018 | | Results for this | | | e | 4:15 AM | | procedure are in the | | | | PST | | results section. | + +--------+ + + + | MAGNESIUM | Routin | 04/23/2018 | | Results for this | | | e | 4:15 AM | | procedure are in the | | | | PST | | results section. | + +--------+ + + + | BASIC METABOLIC | Routin | 04/23/2018 | | Results for this | | PANEL | e | 4:15 AM | | procedure are in the | | | | PST | | results section. | + +--------+ + + + | EXTERNAL LAB: CBC | Routin | 04/22/2018 | | Results for this | | | e | 4:38 AM | | procedure are in the | | | | PST | | results section. | + +--------+ + + + | PHOSPHORUS | Routin | 04/22/2018 | | Results for this | | | e | 4:38 AM | | procedure are in the | | | | PST | | results section. | + +--------+ + + + | MAGNESIUM | Routin | 04/22/2018 | | Results for this | | | e | 4:38 AM | | procedure are in the | | | | PST | | results section. | + +--------+ + + + | BASIC METABOLIC | Routin | 04/22/2018 | | Results for this | | PANEL | e | 4:38 AM | | procedure are in the | | | | PST | | results section. | + +--------+ + + + | EXTERNAL LAB: CBC | Routin | 04/21/2018 | | Results for this | | | e | 1:45 PM | | procedure are in the | | | | PST | | results section. | + +--------+ + + + | POTASSIUM | Routin | 04/21/2018 | | Results for this | | | e | 4:38 AM | | procedure are in the | | | | PST | | results section. | + +--------+ + + + | PHOSPHORUS | Routin | 04/21/2018 | | Results for this | | | e | 4:38 AM | | procedure are in the | | | | PST | | results section. | + +--------+ + + + | MAGNESIUM | Routin | 04/21/2018 | | Results for this | | | e | 4:38 AM | | procedure are in the | | | | PST | | results section. | + +--------+ + + + | BASIC METABOLIC | Routin | 04/21/2018 | | Results for this | | PANEL | e | 4:38 AM | | procedure are in the | | | | PST | | results section. | + +--------+ + + + | HISTORICAL | Timed | 04/20/2018 | | Results for this | | MICROBIOLOGY RESULT | | 4:00 PM | | procedure are in the | | | | PST | | results section. | + +--------+ + + + | MYELIN AB, IGG | Timed | 04/20/2018 | | Results for this | | | | 4:00 PM | | procedure are in the | | | | PST | | results section. | + +--------+ + + + | NMO, SERUM, IGG | Routin | 04/20/2018 | | Results for this | | | e | 4:00 PM | | procedure are in the | | | | PST | | results section. | + +--------+ + + + | WEST NILE VIRUS AB, | Routin | 04/20/2018 | | Results for this | | IGG, IGM, CSF | e | 4:00 PM | | procedure are in the | | | | PST | | results section. | + +--------+ + + + | ANGIOTENSION | Timed | 04/20/2018 | | Results for this | | CONVERTING ENZYME | | 4:00 PM | | procedure are in the | | CSF | | PST | | results section. | + +--------+ + + + | OLIGOCLONAL BAND | Routin | 04/20/2018 | | Results for this | | PANEL | e | 4:00 PM | | procedure are in the | | | | PST | | results section. | + +--------+ + + + | IMMUNOGLOBULIN G | Timed | 04/20/2018 | | Results for this | | INDEX PANEL, CSF | | 4:00 PM | | procedure are in the | | | | PST | | results section. | + +--------+ + + + | CULTURE, CSF, SMEAR | Timed | 04/20/2018 | | Results for this | | | | 4:00 PM | | procedure are in the | | | | PST | | results section. | + +--------+ + + + | MARCELL PREP | Timed | 04/20/2018 | | Results for this | | | | 4:00 PM | | procedure are in the | | | | PST | | results section. | + +--------+ + + + | CELL COUNT WITH | Timed | 04/20/2018 | | Results for this | | DIFFERENTIAL, CSF | | 4:00 PM | | procedure are in the | | | | PST | | results section. | + +--------+ + + + | VDRL, CSF | Timed | 04/20/2018 | | Results for this | | | | 4:00 PM | | procedure are in the | | | | PST | | results section. | + +--------+ + + + | PROTEIN, CSF | Timed | 04/20/2018 | | Results for this | | | | 4:00 PM | | procedure are in the | | | | PST | | results section. | + +--------+ + + + | GLUCOSE, CSF | Timed | 04/20/2018 | | Results for this | | | | 4:00 PM | | procedure are in the | | | | PST | | results section. | + +--------+ + + + | MRI ANGIOGRAM SPINE | Routin | 04/20/2018 | | Results for this | | W WO CONTRAST | e | 7:08 AM | | procedure are in the | | | | PST | | results section. | + +--------+ + + + | MRI THORACIC SPINE W | Routin | 04/20/2018 | | Results for this | | WO CONTRAST | e | 6:46 AM | | procedure are in the | | | | PST | | results section. | + +--------+ + + + | EXTERNAL LAB: CBC | Routin | 04/20/2018 | | Results for this | | | e | 6:36 AM | | procedure are in the | | | | PST | | results section. | + +--------+ + + + | BASIC METABOLIC | Routin | 04/20/2018 | | Results for this | | PANEL | e | 6:36 AM | | procedure are in the | | | | PST | | results section. | + +--------+ + + + | MRI BRAIN W WO | Routin | 04/20/2018 | | Results for this | | CONTRAST | e | 6:26 AM | | procedure are in the | | | | PST | | results section. | + +--------+ + + + | MRSA NAAT | Timed | 04/19/2018 | | Results for this | | | | 9:09 PM | | procedure are in the | | | | PST | | results section. | + +--------+ + + + | MRI CERVICAL SPINE | Routin | 04/19/2018 | | Results for this | | WO CONTRAST | e | 12:37 PM | | procedure are in the | | | | PST | | results section. | + +--------+ + + + | FL C ARM < 1 HOUR | Routin | 04/19/2018 | | Results for this | | | e | 9:36 AM | | procedure are in the | | | | PST | | results section. | + +--------+ + + + | EXTERNAL LAB: CBC | Routin | 04/19/2018 | | Results for this | | | e | 7:38 AM | | procedure are in the | | | | PST | | results section. | + +--------+ + + + | PTT | Routin | 04/19/2018 | | Results for this | | | e | 7:38 AM | | procedure are in the | | | | PST | | results section. | + +--------+ + + + | PROTIME INR | Routin | 04/19/2018 | | Results for this | | | e | 7:38 AM | | procedure are in the | | | | PST | | results section. | + +--------+ + + + | BASIC METABOLIC | Routin | 04/19/2018 | | Results for this | | PANEL | e | 7:38 AM | | procedure are in the | | | | PST | | results section. | + +--------+ + + + documented in this encounter Results External Lab: CBC (05/03/2018 7:02 AM PST) + + + + + + | Component | Value | Ref Range | Performed | Pathologist | | | | | At | Signature | + + + + + + | WBC | 11.54 (H) | 3.80 - 11.00 | EXTERNAL | | | | | K/uL | LAB | | + + + + + + | RED CELL | 3.47 (L) | 4.20 - 5.70 | EXTERNAL | | | COUNT | | M/uL | LAB | | + + + + + + | Hgb | 10.0 (L) | 13.2 - 17.0 | EXTERNAL | | | | | g/dL | LAB | | + + + + + + | Hematocrit, | 30.5 (L) | 39.0 - 50.0 % | EXTERNAL | | | POC | | | LAB | | + + + + + + | MCV | 87.9 | 80.0 - 100.0 fl | EXTERNAL | | | | | | LAB | | + + + + + + | MCH | 28.8 | 27.0 - 34.0 pg | EXTERNAL | | | | | | LAB | | + + + + + + | MCHC | 32.8 | 32.0 - 35.5 | EXTERNAL | | | | | g/dL | LAB | | + + + + + + | RDW-CV | 42.9 | 37 - 53 fl | EXTERNAL | | | | | | LAB | | + + + + + + | Platelet | 390 | 150 - 400 K/uL | EXTERNAL | | | Count | | | LAB | | | Plasma | | | | | + + + + + + | MPV | 6.8 | fl | EXTERNAL | | | | | | LAB | | + + + + + + | Differentia | MANUAL | | EXTERNAL | | | l Type | | | LAB | | + + + + + + | Segmented | 75 | % | EXTERNAL | | | Neutrophils | | | LAB | | | Manual | | | | | + + + + + + | % Bands | 7 | % | EXTERNAL | | | | | | LAB | | + + + + + + | Lymphocytes | 11 | % | EXTERNAL | | | Manual | | | LAB | | + + + + + + | Monocytes | 5 | % | EXTERNAL | | | Manual | | | LAB | | + + + + + + | Eosinophils | 2 | % | EXTERNAL | | | Manual | | | LAB | | + + + + + + | Absolute | 8.65 (H) | 1.90 - 7.40 | EXTERNAL | | | Neutrophils | | K/uL | LAB | | + + + + + + | Bands | 0.81 (H) | 0.00 - 0.20 | EXTERNAL | | | Manual | | K/uL | LAB | | + + + + + + | Absolute | 1.27 | 1.00 - 3.90 | EXTERNAL | | | Lymphocytes | | K/uL | LAB | | + + + + + + | Absolute | 0.58 | 0.00 - 0.80 | EXTERNAL | | | Monocytes | | K/uL | LAB | | + + + + + + | Absolute | 0.23 | 0.00 - 0.50 | EXTERNAL | | | Eosinophils | | K/uL | LAB | | + + + + + + | Platelet | ADEQUATE | | EXTERNAL | | | Estimate | | | LAB | | + + + + + + | RBC | RBC AND PLT MORPHOLOGY | | EXTERNAL | | | Morphology | APPEAR NORMALComment: | | LAB | | | | Testing performed at | | | | | | [facility];[address];[place] [address] | | | | + + + + + + + + | Specimen | + + | Blood specimen | | (specimen) | + + + +---------+ + + | Performing | Address | City/State/Zipcode | Phone Number | | Organization | | | | + +---------+ + + | EXTERNAL LAB | | | | + +---------+ + + Phosphorus (05/03/2018 7:02 AM PST) + + + + + + | Component | Value | Ref Range | Performed | Pathologist | | | | | At | Signature | + + + + + + | PHOSPHORUS | 3.7Comment: Testing | 2.3 - 4.8 mg/dL | EXTERNAL | | | | performed at [facility] | | LAB | | | | [address];[place] | | | | | | [address] | | | | + + + + + + + + | Specimen | + + | Blood specimen | | (specimen) | + + + +---------+ + + | Performing | Address | City/State/Zipcode | Phone Number | | Organization | | | | + +---------+ + + | EXTERNAL LAB | | | | + +---------+ + + Magnesium (05/03/2018 7:02 AM PST) + + + + + + | Component | Value | Ref Range | Performed | Pathologist | | | | | At | Signature | + + + + + + | Magnesium | 1.6 (L)Comment: Testing | 1.7 - 2.4 mg/dL | EXTERNAL | | | | performed at [facility];[address] | | LAB | | | | [facility];[place], [place] | | | | | | [address] | | | | + + + + + + + + | Specimen | + + | Blood specimen | | (specimen) | + + + +---------+ + + | Performing | Address | City/State/Zipcode | Phone Number | | Organization | | | | + +---------+ + + | EXTERNAL LAB | | | | + +---------+ + + Basic Metabolic Panel (05/03/2018 7:02 AM PST) + + + + + + | Component | Value | Ref Range | Performed | Pathologist | | | | | At | Signature | + + + + + + | Na | 144 | 135 - 145 | EXTERNAL | | | | | mmol/L | LAB | | + + + + + + | K | 4.2 | 3.5 - 4.9 | EXTERNAL | | | | | mmol/L | LAB | | + + + + + + | Cl | 106 | 99 - 109 mmol/L | EXTERNAL | | | | | | LAB | | + + + + + + | CO2 | 32 | 23 - 32 mmol/L | EXTERNAL | | | | | | LAB | | + + + + + + | Anion Gap | 10 | 5 - 20 mmol/L | EXTERNAL | | | | | | LAB | | + + + + + + | Glucose, | 103 (H) | 65 - 99 mg/dL | EXTERNAL | | | Fasting | | | LAB | | + + + + + + | BUN | 12 | 8 - 25 mg/dL | EXTERNAL | | | | | | LAB | | + + + + + + | Creatinine | 1.13 | 0.70 - 1.30 | EXTERNAL | | | | | mg/dL | LAB | | + + + + + + | BUN/Creatin | 11 | | EXTERNAL | | | ine Ratio | | | LAB | | + + + + + + | Calcium | 7.4 (L) | 8.5 - 10.5 | EXTERNAL | | | | | mg/dL | LAB | | + + + + + + | Estimated | >60Comment: GFR <60: | mL/min/1.73m2 | EXTERNAL | | | GFR | CHRONIC KIDNEY DISEASE, | | LAB | | | | IF FOUND OVER [...] | | | | | | MDRD IDGA traceable | | | | | | equation.Testing | | | | | | performed at [facility];[address] | | | | | | [facility];[place], [place] | | | | | | [address] | | | | + + + + + + + + | Specimen | + + | Blood specimen | | (specimen) | + + + +---------+ + + | Performing | Address | City/State/Zipcode | Phone Number | | Organization | | | | + +---------+ + + | EXTERNAL LAB | | | | + +---------+ + + External Lab: CBC (05/02/2018 5:42 AM PST) + + + + + + | Component | Value | Ref Range | Performed | Pathologist | | | | | At | Signature | + + + + + + | WBC | 12.03 (H) | 3.80 - 11.00 | EXTERNAL | | | | | K/uL | LAB | | + + + + + + | RED CELL | 3.40 (L) | 4.20 - 5.70 | EXTERNAL | | | COUNT | | M/uL | LAB | | + + + + + + | Hgb | 9.9 (L) | 13.2 - 17.0 | EXTERNAL | | | | | g/dL | LAB | | + + + + + + | Hematocrit, | 30.2 (L) | 39.0 - 50.0 % | EXTERNAL | | | POC | | | LAB | | + + + + + + | MCV | 89.0 | 80.0 - 100.0 fl | EXTERNAL | | | | | | LAB | | + + + + + + | MCH | 29.1 | 27.0 - 34.0 pg | EXTERNAL | | | | | | LAB | | + + + + + + | MCHC | 32.7 | 32.0 - 35.5 | EXTERNAL | | | | | g/dL | LAB | | + + + + + + | RDW-CV | 42.4 | 37 - 53 fl | EXTERNAL | | | | | | LAB | | + + + + + + | Platelet | 372 | 150 - 400 K/uL | EXTERNAL | | | Count | | | LAB | | | Plasma | | | | | + + + + + + | MPV | 7.1 | fl | EXTERNAL | | | | | | LAB | | + + + + + + | Differentia | MANUAL | | EXTERNAL | | | l Type | | | LAB | | + + + + + + | Segmented | 71 | % | EXTERNAL | | | Neutrophils | | | LAB | | | Manual | | | | | + + + + + + | % Bands | 2 | % | EXTERNAL | | | | | | LAB | | + + + + + + | Lymphocytes | 19 | % | EXTERNAL | | | Manual | | | LAB | | + + + + + + | Monocytes | 3 | % | EXTERNAL | | | Manual | | | LAB | | + + + + + + | Eosinophils | 5 | % | EXTERNAL | | | Manual | | | LAB | | + + + + + + | Absolute | 8.54 (H) | 1.90 - 7.40 | EXTERNAL | | | Neutrophils | | K/uL | LAB | | + + + + + + | Bands | 0.24 (H) | 0.00 - 0.20 | EXTERNAL | | | Manual | | K/uL | LAB | | + + + + + + | Absolute | 2.29 | 1.00 - 3.90 | EXTERNAL | | | Lymphocytes | | K/uL | LAB | | + + + + + + | Absolute | 0.36 | 0.00 - 0.80 | EXTERNAL | | | Monocytes | | K/uL | LAB | | + + + + + + | Absolute | 0.60 (H) | 0.00 - 0.50 | EXTERNAL | | | Eosinophils | | K/uL | LAB | | + + + + + + | RBC | 1+Comment: HYPONORMAL | | EXTERNAL | | | Morphology | PLT MORPHTesting | | LAB | | | | performed at [facility], [address] | | | | | | [facility], | | | | | | [place] [address] | | | | | | | | | | + + + + + + + + | Specimen | + + | Blood specimen | | (specimen) | + + + +---------+ + + | Performing | Address | City/State/Zipcode | Phone Number | | Organization | | | | + +---------+ + + | EXTERNAL LAB | | | | + +---------+ + + Phosphorus (05/02/2018 5:42 AM PST) + + + + + + | Component | Value | Ref Range | Performed | Pathologist | | | | | At | Signature | + + + + + + | PHOSPHORUS | 2.7Comment: Testing | 2.3 - 4.8 mg/dL | EXTERNAL | | | | performed at [facility], [address] | | LAB | | | | [address], | | | | | | [place] [address] | | | | + + + + + + + + | Specimen | + + | Blood specimen | | (specimen) | + + + +---------+ + + | Performing | Address | City/State/Zipcode | Phone Number | | Organization | | | | + +---------+ + + | EXTERNAL LAB | | | | + +---------+ + + Magnesium (05/02/2018 5:42 AM PST) + + + + + + | Component | Value | Ref Range | Performed | Pathologist | | | | | At | Signature | + + + + + + | Magnesium | 1.7Comment: Testing | 1.7 - 2.4 mg/dL | EXTERNAL | | | | performed at [facility], [address] | | LAB | | | | [address], | | | | | | [place] [address] | | | | + + + + + + + + | Specimen | + + | Blood specimen | | (specimen) | + + + +---------+ + + | Performing | Address | City/State/Zipcode | Phone Number | | Organization | | | | + +---------+ + + | EXTERNAL LAB | | | | + +---------+ + + Basic Metabolic Panel (05/02/2018 5:42 AM PST) + + + + + + | Component | Value | Ref Range | Performed | Pathologist | | | | | At | Signature | + + + + + + | Na | 143 | 135 - 145 | EXTERNAL | | | | | mmol/L | LAB | | + + + + + + | K | 4.4 | 3.5 - 4.9 | EXTERNAL | | | | | mmol/L | LAB | | + + + + + + | Cl | 104 | 99 - 109 mmol/L | EXTERNAL | | | | | | LAB | | + + + + + + | CO2 | 29 | 23 - 32 mmol/L | EXTERNAL | | | | | | LAB | | + + + + + + | Anion Gap | 14 | 5 - 20 mmol/L | EXTERNAL | | | | | | LAB | | + + + + + + | Glucose, | 100 (H) | 65 - 99 mg/dL | EXTERNAL | | | Fasting | | | LAB | | + + + + + + | BUN | 9 | 8 - 25 mg/dL | EXTERNAL | | | | | | LAB | | + + + + + + | Creatinine | 1.1 | 0.70 - 1.30 | EXTERNAL | | | | | mg/dL | LAB | | + + + + + + | BUN/Creatin | 8 | | EXTERNAL | | | ine Ratio | | | LAB | | + + + + + + | Calcium | 6.9 (L) | 8.5 - 10.5 | EXTERNAL | | | | | mg/dL | LAB | | + + + + + + | Estimated | >60Comment: GFR <60: | mL/min/1.73m2 | EXTERNAL | | | GFR | CHRONIC KIDNEY DISEASE, | | LAB | | | | IF FOUND OVER [...] | | | | | performed at [facility], [address] | | | | | | [facility], | | | | | | [place] [address] | | | | + + + + + + + + | Specimen | + + | Blood specimen | | (specimen) | + + + +---------+ + + | Performing | Address | City/State/Zipcode | Phone Number | | Organization | | | | + +---------+ + + | EXTERNAL LAB | | | | + +---------+ + + External Lab: CBC (05/01/2018 4:59 AM PST) + + + + + + | Component | Value | Ref Range | Performed | Pathologist | | | | | At | Signature | + + + + + + | WBC | 11.25 (H) | 3.80 - 11.00 | EXTERNAL | | | | | K/uL | LAB | | + + + + + + | RED CELL | 3.62 (L) | 4.20 - 5.70 | EXTERNAL | | | COUNT | | M/uL | LAB | | + + + + + + | Hgb | 10.3 (L) | 13.2 - 17.0 | EXTERNAL | | | | | g/dL | LAB | | + + + + + + | Hematocrit, | 32.3 (L) | 39.0 - 50.0 % | EXTERNAL | | | POC | | | LAB | | + + + + + + | MCV | 89.2 | 80.0 - 100.0 fl | EXTERNAL | | | | | | LAB | | + + + + + + | MCH | 28.4 | 27.0 - 34.0 pg | EXTERNAL | | | | | | LAB | | + + + + + + | MCHC | 31.9 (L) | 32.0 - 35.5 | EXTERNAL | | | | | g/dL | LAB | | + + + + + + | RDW-CV | 42.4 | 37 - 53 fl | EXTERNAL | | | | | | LAB | | + + + + + + | Platelet | 352 | 150 - 400 K/uL | EXTERNAL | | | Count | | | LAB | | | Plasma | | | | | + + + + + + | MPV | 7.6 | fl | EXTERNAL | | | | | | LAB | | + + + + + + | Differentia | MANUAL | | EXTERNAL | | | l Type | | | LAB | | + + + + + + | Segmented | 74 | % | EXTERNAL | | | Neutrophils | | | LAB | | | Manual | | | | | + + + + + + | % Bands | 1 | % | EXTERNAL | | | | | | LAB | | + + + + + + | Lymphocytes | 12 | % | EXTERNAL | | | Manual | | | LAB | | + + + + + + | % Atypical | 4 | % | EXTERNAL | | | Lymphocytes | | | LAB | | + + + + + + | Monocytes | 6 | % | EXTERNAL | | | Manual | | | LAB | | + + + + + + | Eosinophils | 3 | % | EXTERNAL | | | Manual | | | LAB | | + + + + + + | Absolute | 8.32 (H) | 1.90 - 7.40 | EXTERNAL | | | Neutrophils | | K/uL | LAB | | + + + + + + | Bands | 0.11 | 0.00 - 0.20 | EXTERNAL | | | Manual | | K/uL | LAB | | + + + + + + | Absolute | 1.35 | 1.00 - 3.90 | EXTERNAL | | | Lymphocytes | | K/uL | LAB | | + + + + + + | Absolute | 0.45 (H) | K/uL | EXTERNAL | | | Atypical | | | LAB | | | Lymphocytes | | | | | + + + + + + | Absolute | 0.68 | 0.00 - 0.80 | EXTERNAL | | | Monocytes | | K/uL | LAB | | + + + + + + | Absolute | 0.34 | 0.00 - 0.50 | EXTERNAL | | | Eosinophils | | K/uL | LAB | | + + + + + + | RBC | RBC AND PLT MORPHOLOGY | | EXTERNAL | | | Morphology | APPEAR NORMALComment: | | LAB | | | | Testing performed at | | | | | | [facility], [address] [place] [address] | | | | | | [place] | | | | | | [address] | | | | + + + + + + + + | Specimen | + + | Blood specimen | | (specimen) | + + + +---------+ + + | Performing | Address | City/State/Zipcode | Phone Number | | Organization | | | | + +---------+ + + | EXTERNAL LAB | | | | + +---------+ + + Phosphorus (05/01/2018 4:59 AM PST) + + + + + + | Component | Value | Ref Range | Performed | Pathologist | | | | | At | Signature | + + + + + + | PHOSPHORUS | 3.4Comment: Testing | 2.3 - 4.8 mg/dL | EXTERNAL | | | | performed at [facility], [address] | | LAB | | | | [address], | | | | | | [place] [address] | | | | + + + + + + + + | Specimen | + + | Blood specimen | | (specimen) | + + + +---------+ + + | Performing | Address | City/State/Zipcode | Phone Number | | Organization | | | | + +---------+ + + | EXTERNAL LAB | | | | + +---------+ + + Magnesium (05/01/2018 4:59 AM PST) + + + + + + | Component | Value | Ref Range | Performed | Pathologist | | | | | At | Signature | + + + + + + | Magnesium | 1.7Comment: Testing | 1.7 - 2.4 mg/dL | EXTERNAL | | | | performed at [facility], [address] | | LAB | | | | [address], | | | | | | [place] [address] | | | | + + + + + + + + | Specimen | + + | Blood specimen | | (specimen) | + + + +---------+ + + | Performing | Address | City/State/Zipcode | Phone Number | | Organization | | | | + +---------+ + + | EXTERNAL LAB | | | | + +---------+ + + Basic Metabolic Panel (05/01/2018 4:59 AM PST) + + + + + + | Component | Value | Ref Range | Performed | Pathologist | | | | | At | Signature | + + + + + + | Na | 141 | 135 - 145 | EXTERNAL | | | | | mmol/L | LAB | | + + + + + + | K | 4.0 | 3.5 - 4.9 | EXTERNAL | | | | | mmol/L | LAB | | + + + + + + | Cl | 101 | 99 - 109 mmol/L | EXTERNAL | | | | | | LAB | | + + + + + + | CO2 | 29 | 23 - 32 mmol/L | EXTERNAL | | | | | | LAB | | + + + + + + | Anion Gap | 15 | 5 - 20 mmol/L | EXTERNAL | | | | | | LAB | | + + + + + + | Glucose, | 128 (H) | 65 - 99 mg/dL | EXTERNAL | | | Fasting | | | LAB | | + + + + + + | BUN | 6 (L) | 8 - 25 mg/dL | EXTERNAL | | | | | | LAB | | + + + + + + | Creatinine | 1.2 | 0.70 - 1.30 | EXTERNAL | | | | | mg/dL | LAB | | + + + + + + | BUN/Creatin | 5 | | EXTERNAL | | | ine Ratio | | | LAB | | + + + + + + | Calcium | 7.6 (L) | 8.5 - 10.5 | EXTERNAL | | | | | mg/dL | LAB | | + + + + + + | Estimated | >60Comment: GFR <60: | mL/min/1.73m2 | EXTERNAL | | | GFR | CHRONIC KIDNEY DISEASE, | | LAB | | | | IF FOUND OVER [...] | | | | | performed at [facility], [address] | | | | | | [facility], | | | | | | [place] [address] | | | | + + + + + + + + | Specimen | + + | Blood specimen | | (specimen) | + + + +---------+ + + | Performing | Address | City/State/Zipcode | Phone Number | | Organization | | | | + +---------+ + + | EXTERNAL LAB | | | | + +---------+ + + External Lab: CBC (04/30/2018 4:00 AM PST) + + + + + + | Component | Value | Ref Range | Performed | Pathologist | | | | | At | Signature | + + + + + + | WBC | 12.01 (H) | 3.80 - 11.00 | EXTERNAL | | | | | K/uL | LAB | | + + + + + + | RED CELL | 3.36 (L) | 4.20 - 5.70 | EXTERNAL | | | COUNT | | M/uL | LAB | | + + + + + + | Hgb | 9.6 (L) | 13.2 - 17.0 | EXTERNAL | | | | | g/dL | LAB | | + + + + + + | Hematocrit, | 29.7 (L) | 39.0 - 50.0 % | EXTERNAL | | | POC | | | LAB | | + + + + + + | MCV | 88.5 | 80.0 - 100.0 fl | EXTERNAL | | | | | | LAB | | + + + + + + | MCH | 28.6 | 27.0 - 34.0 pg | EXTERNAL | | | | | | LAB | | + + + + + + | MCHC | 32.3 | 32.0 - 35.5 | EXTERNAL | | | | | g/dL | LAB | | + + + + + + | RDW-CV | 42.0 | 37 - 53 fl | EXTERNAL | | | | | | LAB | | + + + + + + | Platelet | 296 | 150 - 400 K/uL | EXTERNAL | | | Count | | | LAB | | | Plasma | | | | | + + + + + + | MPV | 8.2 | fl | EXTERNAL | | | | | | LAB | | + + + + + + | Differentia | MANUAL | | EXTERNAL | | | l Type | | | LAB | | + + + + + + | Segmented | 81 | % | EXTERNAL | | | Neutrophils | | | LAB | | | Manual | | | | | + + + + + + | % | 1 | % | EXTERNAL | | | Metamyelocy | | | LAB | | | jodi | | | | | + + + + + + | Lymphocytes | 11 | % | EXTERNAL | | | Manual | | | LAB | | + + + + + + | Monocytes | 4 | % | EXTERNAL | | | Manual | | | LAB | | + + + + + + | Eosinophils | 3 | % | EXTERNAL | | | Manual | | | LAB | | + + + + + + | Absolute | 9.73 (H) | 1.90 - 7.40 | EXTERNAL | | | Neutrophils | | K/uL | LAB | | + + + + + + | Absolute | 0.12 (H) | K/uL | EXTERNAL | | | Metamyelocy | | | LAB | | | jodi | | | | | + + + + + + | Absolute | 1.32 | 1.00 - 3.90 | EXTERNAL | | | Lymphocytes | | K/uL | LAB | | + + + + + + | Absolute | 0.48 | 0.00 - 0.80 | EXTERNAL | | | Monocytes | | K/uL | LAB | | + + + + + + | Absolute | 0.36 | 0.00 - 0.50 | EXTERNAL | | | Eosinophils | | K/uL | LAB | | + + + + + + | Platelet | ADEQUATE | | EXTERNAL | | | Estimate | | | LAB | | + + + + + + | RBC | RBC AND PLT MORPHOLOGY | | EXTERNAL | | | Morphology | APPEAR NORMALComment: | | LAB | | | | Testing performed at | | | | | | [facility], [address] | | | | | | [place] | | | | | | [address] | | | | + + + + + + + + | Specimen | + + | Blood specimen | | (specimen) | + + + +---------+ + + | Performing | Address | City/State/Zipcode | Phone Number | | Organization | | | | + +---------+ + + | EXTERNAL LAB | | | | + +---------+ + + Phosphorus (04/30/2018 4:00 AM PST) + + + + + + | Component | Value | Ref Range | Performed | Pathologist | | | | | At | Signature | + + + + + + | PHOSPHORUS | 3.0Comment: Testing | 2.3 - 4.8 mg/dL | EXTERNAL | | | | performed at [facility], [address] | | LAB | | | | [place], | | | | | | [place] [address] | | | | + + + + + + + + | Specimen | + + | Blood specimen | | (specimen) | + + + +---------+ + + | Performing | Address | City/State/Zipcode | Phone Number | | Organization | | | | + +---------+ + + | EXTERNAL LAB | | | | + +---------+ + + Magnesium (04/30/2018 4:00 AM PST) + + + + + + | Component | Value | Ref Range | Performed | Pathologist | | | | | At | Signature | + + + + + + | Magnesium | 1.8Comment: Testing | 1.7 - 2.4 mg/dL | EXTERNAL | | | | performed at [facility], [address] | | LAB | | | | [place], | | | | | | [place] [address] | | | | + + + + + + + + | Specimen | + + | Blood specimen | | (specimen) | + + + +---------+ + + | Performing | Address | City/State/Zipcode | Phone Number | | Organization | | | | + +---------+ + + | EXTERNAL LAB | | | | + +---------+ + + Basic Metabolic Panel (04/30/2018 4:00 AM PST) + + + + + + | Component | Value | Ref Range | Performed | Pathologist | | | | | At | Signature | + + + + + + | Na | 142 | 135 - 145 | EXTERNAL | | | | | mmol/L | LAB | | + + + + + + | K | 3.6 | 3.5 - 4.9 | EXTERNAL | | | | | mmol/L | LAB | | + + + + + + | Cl | 105 | 99 - 109 mmol/L | EXTERNAL | | | | | | LAB | | + + + + + + | CO2 | 30 | 23 - 32 mmol/L | EXTERNAL | | | | | | LAB | | + + + + + + | Anion Gap | 11 | 5 - 20 mmol/L | EXTERNAL | | | | | | LAB | | + + + + + + | Glucose, | 130 (H) | 65 - 99 mg/dL | EXTERNAL | | | Fasting | | | LAB | | + + + + + + | BUN | 7 (L) | 8 - 25 mg/dL | EXTERNAL | | | | | | LAB | | + + + + + + | Creatinine | 1.0 | 0.70 - 1.30 | EXTERNAL | | | | | mg/dL | LAB | | + + + + + + | BUN/Creatin | 7 | | EXTERNAL | | | ine Ratio | | | LAB | | + + + + + + | Calcium | 7.8 (L) | 8.5 - 10.5 | EXTERNAL | | | | | mg/dL | LAB | | + + + + + + | Estimated | >60Comment: GFR <60: | mL/min/1.73m2 | EXTERNAL | | | GFR | CHRONIC KIDNEY DISEASE, | | LAB | | | | IF FOUND OVER [...] | | | | | performed at [facility], [address] | | | | | | [facility], | | | | | | [place] [address] | | | | + + + + + + + + | Specimen | + + | Blood specimen | | (specimen) | + + + +---------+ + + | Performing | Address | City/State/Zipcode | Phone Number | | Organization | | | | + +---------+ + + | EXTERNAL LAB | | | | + +---------+ + + External Lab: CBC (04/29/2018 4:13 AM PST) + + + + + + | Component | Value | Ref Range | Performed | Pathologist | | | | | At | Signature | + + + + + + | WBC | 13.61 (H) | 3.80 - 11.00 | EXTERNAL | | | | | K/uL | LAB | | + + + + + + | RED CELL | 3.24 (L) | 4.20 - 5.70 | EXTERNAL | | | COUNT | | M/uL | LAB | | + + + + + + | Hgb | 9.4 (L) | 13.2 - 17.0 | EXTERNAL | | | | | g/dL | LAB | | + + + + + + | Hematocrit, | 28.8 (L) | 39.0 - 50.0 % | EXTERNAL | | | POC | | | LAB | | + + + + + + | MCV | 88.9 | 80.0 - 100.0 fl | EXTERNAL | | | | | | LAB | | + + + + + + | MCH | 29.0 | 27.0 - 34.0 pg | EXTERNAL | | | | | | LAB | | + + + + + + | MCHC | 32.6 | 32.0 - 35.5 | EXTERNAL | | | | | g/dL | LAB | | + + + + + + | RDW-CV | 42.9 | 37 - 53 fl | EXTERNAL | | | | | | LAB | | + + + + + + | Platelet | 243 | 150 - 400 K/uL | EXTERNAL | | | Count | | | LAB | | | Plasma | | | | | + + + + + + | MPV | 7.9 | fl | EXTERNAL | | | | | | LAB | | + + + + + + | Differentia | MANUAL | | EXTERNAL | | | l Type | | | LAB | | + + + + + + | Segmented | 85 | % | EXTERNAL | | | Neutrophils | | | LAB | | | Manual | | | | | + + + + + + | % Bands | 2 | % | EXTERNAL | | | | | | LAB | | + + + + + + | % | 2 | % | EXTERNAL | | | Metamyelocy | | | LAB | | | jodi | | | | | + + + + + + | Lymphocytes | 6 | % | EXTERNAL | | | Manual | | | LAB | | + + + + + + | % Atypical | 1 | % | EXTERNAL | | | Lymphocytes | | | LAB | | + + + + + + | Monocytes | 3 | % | EXTERNAL | | | Manual | | | LAB | | + + + + + + | Eosinophils | 1 | % | EXTERNAL | | | Manual | | | LAB | | + + + + + + | Absolute | 11.56 (H) | 1.90 - 7.40 | EXTERNAL | | | Neutrophils | | K/uL | LAB | | + + + + + + | Bands | 0.27 (H) | 0.00 - 0.20 | EXTERNAL | | | Manual | | K/uL | LAB | | + + + + + + | Absolute | 0.27 (H) | K/uL | EXTERNAL | | | Metamyelocy | | | LAB | | | jdoi | | | | | + + + + + + | Absolute | 0.82 (L) | 1.00 - 3.90 | EXTERNAL | | | Lymphocytes | | K/uL | LAB | | + + + + + + | Absolute | 0.14 (H) | K/uL | EXTERNAL | | | Atypical | | | LAB | | | Lymphocytes | | | | | + + + + + + | Absolute | 0.41 | 0.00 - 0.80 | EXTERNAL | | | Monocytes | | K/uL | LAB | | + + + + + + | Absolute | 0.14 | 0.00 - 0.50 | EXTERNAL | | | Eosinophils | | K/uL | LAB | | + + + + + + | RBC | RBC AND PLT MORPHOLOGY | | EXTERNAL | | | Morphology | APPEAR NORMALComment: | | LAB | | | | Testing performed at | | | | | | [facility], [address] [place] [address] | | | | | | [facility], [place] | | | | | | [address] | | | | + + + + + + + + | Specimen | + + | Blood specimen | | (specimen) | + + + +---------+ + + | Performing | Address | City/State/Zipcode | Phone Number | | Organization | | | | + +---------+ + + | EXTERNAL LAB | | | | + +---------+ + + Phosphorus (04/29/2018 4:13 AM PST) + + + + + + | Component | Value | Ref Range | Performed | Pathologist | | | | | At | Signature | + + + + + + | PHOSPHORUS | 4.0Comment: Testing | 2.3 - 4.8 mg/dL | EXTERNAL | | | | performed at [facility], [address] | | LAB | | | | [address], | | | | | | [place] [address] | | | | + + + + + + + + | Specimen | + + | Blood specimen | | (specimen) | + + + +---------+ + + | Performing | Address | City/State/Zipcode | Phone Number | | Organization | | | | + +---------+ + + | EXTERNAL LAB | | | | + +---------+ + + Magnesium (04/29/2018 4:13 AM PST) + + + + + + | Component | Value | Ref Range | Performed | Pathologist | | | | | At | Signature | + + + + + + | Magnesium | 1.8Comment: Testing | 1.7 - 2.4 mg/dL | EXTERNAL | | | | performed at [facility], [address] | | LAB | | | | [address], | | | | | | [place] [address] | | | | + + + + + + + + | Specimen | + + | Blood specimen | | (specimen) | + + + +---------+ + + | Performing | Address | City/State/Zipcode | Phone Number | | Organization | | | | + +---------+ + + | EXTERNAL LAB | | | | + +---------+ + + Basic Metabolic Panel (04/29/2018 4:13 AM PST) + + + + + + | Component | Value | Ref Range | Performed | Pathologist | | | | | At | Signature | + + + + + + | Na | 141 | 135 - 145 | EXTERNAL | | | | | mmol/L | LAB | | + + + + + + | K | 4.0 | 3.5 - 4.9 | EXTERNAL | | | | | mmol/L | LAB | | + + + + + + | Cl | 106 | 99 - 109 mmol/L | EXTERNAL | | | | | | LAB | | + + + + + + | CO2 | 26 | 23 - 32 mmol/L | EXTERNAL | | | | | | LAB | | + + + + + + | Anion Gap | 13 | 5 - 20 mmol/L | EXTERNAL | | | | | | LAB | | + + + + + + | Glucose, | 115 (H) | 65 - 99 mg/dL | EXTERNAL | | | Fasting | | | LAB | | + + + + + + | BUN | 9 | 8 - 25 mg/dL | EXTERNAL | | | | | | LAB | | + + + + + + | Creatinine | 1.0 | 0.70 - 1.30 | EXTERNAL | | | | | mg/dL | LAB | | + + + + + + | BUN/Creatin | 9 | | EXTERNAL | | | ine Ratio | | | LAB | | + + + + + + | Calcium | 7.8 (L) | 8.5 - 10.5 | EXTERNAL | | | | | mg/dL | LAB | | + + + + + + | Estimated | >60Comment: GFR <60: | mL/min/1.73m2 | EXTERNAL | | | GFR | CHRONIC KIDNEY DISEASE, | | LAB | | | | IF FOUND OVER [...] | | | | | performed at [facility], [address] | | | | | | [address], | | | | | | [place] [address] | | | | + + + + + + + + | Specimen | + + | Blood specimen | | (specimen) | + + + +---------+ + + | Performing | Address | City/State/Zipcode | Phone Number | | Organization | | | | + +---------+ + + | EXTERNAL LAB | | | | + +---------+ + + External Lab: CBC (04/28/2018 4:23 AM PST) + + + + + + | Component | Value | Ref Range | Performed | Pathologist | | | | | At | Signature | + + + + + + | WBC | 17.99 (H) | 3.80 - 11.00 | EXTERNAL | | | | | K/uL | LAB | | + + + + + + | RED CELL | 3.52 (L) | 4.20 - 5.70 | EXTERNAL | | | COUNT | | M/uL | LAB | | + + + + + + | Hgb | 10.2 (L) | 13.2 - 17.0 | EXTERNAL | | | | | g/dL | LAB | | + + + + + + | Hematocrit, | 30.5 (L) | 39.0 - 50.0 % | EXTERNAL | | | POC | | | LAB | | + + + + + + | MCV | 86.8 | 80.0 - 100.0 fl | EXTERNAL | | | | | | LAB | | + + + + + + | MCH | 28.9 | 27.0 - 34.0 pg | EXTERNAL | | | | | | LAB | | + + + + + + | MCHC | 33.3 | 32.0 - 35.5 | EXTERNAL | | | | | g/dL | LAB | | + + + + + + | RDW-CV | 41.6 | 37 - 53 fl | EXTERNAL | | | | | | LAB | | + + + + + + | Platelet | 233 | 150 - 400 K/uL | EXTERNAL | | | Count | | | LAB | | | Plasma | | | | | + + + + + + | MPV | 7.5 | fl | EXTERNAL | | | | | | LAB | | + + + + + + | Differentia | MANUAL | | EXTERNAL | | | l Type | | | LAB | | + + + + + + | Segmented | 69 | % | EXTERNAL | | | Neutrophils | | | LAB | | | Manual | | | | | + + + + + + | % Bands | 11 | % | EXTERNAL | | | | | | LAB | | + + + + + + | % | 2 | % | EXTERNAL | | | Metamyelocy | | | LAB | | | jodi | | | | | + + + + + + | % | 1 | % | EXTERNAL | | | Myelocytes | | | LAB | | + + + + + + | Lymphocytes | 7 | % | EXTERNAL | | | Manual | | | LAB | | + + + + + + | Monocytes | 9 | % | EXTERNAL | | | Manual | | | LAB | | + + + + + + | Eosinophils | 1 | % | EXTERNAL | | | Manual | | | LAB | | + + + + + + | Absolute | 12.41 (H) | 1.90 - 7.40 | EXTERNAL | | | Neutrophils | | K/uL | LAB | | + + + + + + | Bands | 1.98 (H) | 0.00 - 0.20 | EXTERNAL | | | Manual | | K/uL | LAB | | + + + + + + | Absolute | 0.36 (H) | K/uL | EXTERNAL | | | Metamyelocy | | | LAB | | | jodi | | | | | + + + + + + | Absolute | 0.18 (H) | K/uL | EXTERNAL | | | Myelocytes | | | LAB | | + + + + + + | Absolute | 1.26 | 1.00 - 3.90 | EXTERNAL | | | Lymphocytes | | K/uL | LAB | | + + + + + + | Absolute | 1.62 (H) | 0.00 - 0.80 | EXTERNAL | | | Monocytes | | K/uL | LAB | | + + + + + + | Absolute | 0.18 | 0.00 - 0.50 | EXTERNAL | | | Eosinophils | | K/uL | LAB | | + + + + + + | Platelet | ADEQUATE | | EXTERNAL | | | Estimate | | | LAB | | + + + + + + | RBC | RBC AND PLT MORPHOLOGY | | EXTERNAL | | | Morphology | APPEAR NORMALComment: | | LAB | | | | Testing performed at | | | | | | [facility];[address];[place] [address] | | | | + + + + + + + + | Specimen | + + | Blood specimen | | (specimen) | + + + +---------+ + + | Performing | Address | City/State/Zipcode | Phone Number | | Organization | | | | + +---------+ + + | EXTERNAL LAB | | | | + +---------+ + + Phosphorus (04/28/2018 4:23 AM PST) + + + + + + | Component | Value | Ref Range | Performed | Pathologist | | | | | At | Signature | + + + + + + | PHOSPHORUS | 2.8Comment: Testing | 2.3 - 4.8 mg/dL | EXTERNAL | | | | performed at [facility] | | LAB | | | | [address];[place] | | | | | | [address] | | | | + + + + + + + + | Specimen | + + | Blood specimen | | (specimen) | + + + +---------+ + + | Performing | Address | City/State/Zipcode | Phone Number | | Organization | | | | + +---------+ + + | EXTERNAL LAB | | | | + +---------+ + + Magnesium (04/28/2018 4:23 AM PST) + + + + + + | Component | Value | Ref Range | Performed | Pathologist | | | | | At | Signature | + + + + + + | Magnesium | 1.8Comment: Testing | 1.7 - 2.4 mg/dL | EXTERNAL | | | | performed at [facility];[address] | | LAB | | | | [facility];[place], [place] | | | | | | [address] | | | | + + + + + + + + | Specimen | + + | Blood specimen | | (specimen) | + + + +---------+ + + | Performing | Address | City/State/Zipcode | Phone Number | | Organization | | | | + +---------+ + + | EXTERNAL LAB | | | | + +---------+ + + Basic Metabolic Panel (04/28/2018 4:23 AM PST) + + + + + + | Component | Value | Ref Range | Performed | Pathologist | | | | | At | Signature | + + + + + + | Na | 142 | 135 - 145 | EXTERNAL | | | | | mmol/L | LAB | | + + + + + + | K | 3.6 | 3.5 - 4.9 | EXTERNAL | | | | | mmol/L | LAB | | + + + + + + | Cl | 108 | 99 - 109 mmol/L | EXTERNAL | | | | | | LAB | | + + + + + + | CO2 | 25 | 23 - 32 mmol/L | EXTERNAL | | | | | | LAB | | + + + + + + | Anion Gap | 13 | 5 - 20 mmol/L | EXTERNAL | | | | | | LAB | | + + + + + + | Glucose, | 124 (H) | 65 - 99 mg/dL | EXTERNAL | | | Fasting | | | LAB | | + + + + + + | BUN | 16 | 8 - 25 mg/dL | EXTERNAL | | | | | | LAB | | + + + + + + | Creatinine | 1.15 | 0.70 - 1.30 | EXTERNAL | | | | | mg/dL | LAB | | + + + + + + | BUN/Creatin | 14 | | EXTERNAL | | | ine Ratio | | | LAB | | + + + + + + | Calcium | 7.1 (L) | 8.5 - 10.5 | EXTERNAL | | | | | mg/dL | LAB | | + + + + + + | Estimated | >60Comment: GFR <60: | mL/min/1.73m2 | EXTERNAL | | | GFR | CHRONIC KIDNEY DISEASE, | | LAB | | | | IF FOUND OVER [...] | | | | | | MDRD IDGA traceable | | | | | | equation.Testing | | | | | | performed at [facility];[address] | | | | | | [facility];[place], [place] | | | | | | [address] | | | | + + + + + + + + | Specimen | + + | Blood specimen | | (specimen) | + + + +---------+ + + | Performing | Address | City/State/Zipcode | Phone Number | | Organization | | | | + +---------+ + + | EXTERNAL LAB | | | | + +---------+ + + External Lab: CBC (04/27/2018 4:22 AM PST) + + + + + + | Component | Value | Ref Range | Performed | Pathologist | | | | | At | Signature | + + + + + + | WBC | 31.59 ()Comment: | 3.80 - 11.00 | EXTERNAL | | | | RESULT READ BACK | K/uL | LAB | | | | BY:TJ Gamino [id number] | | | | | | 04/27/18 KB | | | | | | | | | | + + + + + + | RED CELL | 4.58 | 4.20 - 5.70 | EXTERNAL | | | COUNT | | M/uL | LAB | | + + + + + + | Hgb | 13.2 | 13.2 - 17.0 | EXTERNAL | | | | | g/dL | LAB | | + + + + + + | Hematocrit, | 40.5 | 39.0 - 50.0 % | EXTERNAL | | | POC | | | LAB | | + + + + + + | MCV | 88.5 | 80.0 - 100.0 fl | EXTERNAL | | | | | | LAB | | + + + + + + | MCH | 28.7 | 27.0 - 34.0 pg | EXTERNAL | | | | | | LAB | | + + + + + + | MCHC | 32.5 | 32.0 - 35.5 | EXTERNAL | | | | | g/dL | LAB | | + + + + + + | RDW-CV | 43.3 | 37 - 53 fl | EXTERNAL | | | | | | LAB | | + + + + + + | Platelet | 276 | 150 - 400 K/uL | EXTERNAL | | | Count | | | LAB | | | Plasma | | | | | + + + + + + | MPV | 8.4 | fl | EXTERNAL | | | | | | LAB | | + + + + + + | Differentia | MANUAL | | EXTERNAL | | | l Type | | | LAB | | + + + + + + | Segmented | 69 | % | EXTERNAL | | | Neutrophils | | | LAB | | | Manual | | | | | + + + + + + | % Bands | 16 | % | EXTERNAL | | | | | | LAB | | + + + + + + | Lymphocytes | 3 | % | EXTERNAL | | | Manual | | | LAB | | + + + + + + | Monocytes | 11 | % | EXTERNAL | | | Manual | | | LAB | | + + + + + + | Eosinophils | 1 | % | EXTERNAL | | | Manual | | | LAB | | + + + + + + | Absolute | 21.80 (H) | 1.90 - 7.40 | EXTERNAL | | | Neutrophils | | K/uL | LAB | | + + + + + + | Bands | 5.05 (H) | 0.00 - 0.20 | EXTERNAL | | | Manual | | K/uL | LAB | | + + + + + + | Absolute | 0.95 (L) | 1.00 - 3.90 | EXTERNAL | | | Lymphocytes | | K/uL | LAB | | + + + + + + | Absolute | 3.47 (H) | 0.00 - 0.80 | EXTERNAL | | | Monocytes | | K/uL | LAB | | + + + + + + | Absolute | 0.32 | 0.00 - 0.50 | EXTERNAL | | | Eosinophils | | K/uL | LAB | | + + + + + + | RBC | RBC AND PLT MORPHOLOGY | | EXTERNAL | | | Morphology | APPEAR NORMALComment: | | LAB | | | | Testing performed at | | | | | | [facility], [address] [place] [address] | | | | | | [place] | | | | | | [address] | | | | + + + + + + + + | Specimen | + + | Blood specimen | | (specimen) | + + + +---------+ + + | Performing | Address | City/State/Zipcode | Phone Number | | Organization | | | | + +---------+ + + | EXTERNAL LAB | | | | + +---------+ + + Phosphorus (04/27/2018 4:22 AM PST) + + + + + + | Component | Value | Ref Range | Performed | Pathologist | | | | | At | Signature | + + + + + + | PHOSPHORUS | 2.4Comment: Testing | 2.3 - 4.8 mg/dL | EXTERNAL | | | | performed at [facility], [address] | | LAB | | | | [address], | | | | | | [place] [address] | | | | + + + + + + + + | Specimen | + + | Blood specimen | | (specimen) | + + + +---------+ + + | Performing | Address | City/State/Zipcode | Phone Number | | Organization | | | | + +---------+ + + | EXTERNAL LAB | | | | + +---------+ + + Magnesium (04/27/2018 4:22 AM PST) + + + + + + | Component | Value | Ref Range | Performed | Pathologist | | | | | At | Signature | + + + + + + | Magnesium | 2.4Comment: Testing | 1.7 - 2.4 mg/dL | EXTERNAL | | | | performed at [facility], [address] | | LAB | | | | [address], | | | | | | [place] [address] | | | | + + + + + + + + | Specimen | + + | Blood specimen | | (specimen) | + + + +---------+ + + | Performing | Address | City/State/Zipcode | Phone Number | | Organization | | | | + +---------+ + + | EXTERNAL LAB | | | | + +---------+ + + Basic Metabolic Panel (04/27/2018 4:22 AM PST) + + + + + + | Component | Value | Ref Range | Performed | Pathologist | | | | | At | Signature | + + + + + + | Na | 142 | 135 - 145 | EXTERNAL | | | | | mmol/L | LAB | | + + + + + + | K | 4.3 | 3.5 - 4.9 | EXTERNAL | | | | | mmol/L | LAB | | + + + + + + | Cl | 106 | 99 - 109 mmol/L | EXTERNAL | | | | | | LAB | | + + + + + + | CO2 | 25 | 23 - 32 mmol/L | EXTERNAL | | | | | | LAB | | + + + + + + | Anion Gap | 15 | 5 - 20 mmol/L | EXTERNAL | | | | | | LAB | | + + + + + + | Glucose, | 106 (H) | 65 - 99 mg/dL | EXTERNAL | | | Fasting | | | LAB | | + + + + + + | BUN | 26 (H) | 8 - 25 mg/dL | EXTERNAL | | | | | | LAB | | + + + + + + | Creatinine | 1.5 (H) | 0.70 - 1.30 | EXTERNAL | | | | | mg/dL | LAB | | + + + + + + | BUN/Creatin | 17 | | EXTERNAL | | | ine Ratio | | | LAB | | + + + + + + | Calcium | 8.1 (L) | 8.5 - 10.5 | EXTERNAL | | | | | mg/dL | LAB | | + + + + + + | Estimated | 51 (L)Comment: GFR <60: | mL/min/1.73m2 | EXTERNAL | | | GFR | CHRONIC KIDNEY DISEASE, | | LAB | | | | IF FOUND OVER [...] | | | | | performed at [facility], [address] | | | | | | [facility], | | | | | | [place] [address] | | | | + + + + + + + + | Specimen | + + | Blood specimen | | (specimen) | + + + +---------+ + + | Performing | Address | City/State/Zipcode | Phone Number | | Organization | | | | + +---------+ + + | EXTERNAL LAB | | | | + +---------+ + + Calcium, Ionized (04/26/2018 10:53 AM PST) + + + + + + | Component | Value | Ref Range | Performed | Pathologist | | | | | At | Signature | + + + + + + | Calcium | 0.82 (L) | 1.08 - 1.25 | EXTERNAL | | | (Calc) | | mmol/L | LAB | | + + + + + + | pH, Bld | 7.336Comment: Testing | 7.300 - 7.450 | EXTERNAL | | | | performed at [facility];[address] | | LAB | | | | [address];[place], [place] | | | | | | [address] | | | | + + + + + + + + | Specimen | + + | Blood specimen | | (specimen) | + + + +---------+ + + | Performing | Address | City/State/Zipcode | Phone Number | | Organization | | | | + +---------+ + + | EXTERNAL LAB | | | | + +---------+ + + Tissue Request For Pathology (04/26/2018 7:00 AM PST) + + | Specimen | + + | Soft tissue sample | | (specimen) | + + + + + | Narrative | Performed At | + + + | SPECIMEN(S): A COLON SPECIMEN SOURCE: A. 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 difficile infection noted) - | | | Acute peritonitis - Histologically viable proximal and | | | distal margins - Appendix without pathologic abnormality | | | - Omentum with serosal inflammation - Eight benign, | | | reactive lymph nodes - Negative for polyps and neoplasia | | | MICROSCOPIC EXAMINATION: Histologic sections of all submitted blocks | | | are examined by light microscopy. These findings, together with the | | | gross examination, support the pathologic diagnosis. GROSS | | | DESCRIPTION: The specimen, labeled "JARAD, colon," is received fresh and | | | placed into formalin and consists of colon, terminal ileum, appendix, | | | omentum, and attached pericolonic adipose tissue. The colon is | | | 159.5 cm in length and has an internal circumference that ranges from | | | 9.5 cm distally up to 16.5 cm at the ileocecal valve. The terminal | | | ileum is 3.5 cm in length and has an average internal circumference of | | | 8.5 cm. The appendix is 7.3 x 0.7 cm. The serosa of the specimen | | | is red with focal areas of adherent membranous tissue. Upon opening | | | mucosal surface is red to violaceous with diffuse areas of yellow | | | plaque-like material. Also present are focal areas of submucosal | | | hemorrhage. The mucosal surface of the terminal ileum is pink and | | | finely granular with a decrease folding pattern. The appendix has a | | | pink, finely granular mucosa. The bowel wall is diffusely edematous | | | and has an average thickness of 1.0 cm. Attached to the large bowel | | | is a portion of omentum that is 14.5 x 4.2 x 0.9 cm. The omentum | | | has a pink-red discoloration. Upon sectioning no mass lesions are | | | grossly identified. Sectioning through the pericolonic adipose | | | tissue eight possible lymph nodes are grossly identified. | | | Numerical Control Operator sections are submitted in fourteen cassettes. | | | Cassette summary: (A1) Proximal resection margin, shave (A2) Distal | | | resection margin, shave (A3) Appendix (A4) Terminal ileum and | | | ileocecal valve (A5-A11) Large bowel wall submitted from proximal | | | to distal (A12) Five possible lymph nodes, submitted whole | | | (A13) Two possible lymph nodes, submitted whole and omentum | | | (A14) One possible lymph node, trisected. FB (under the direct | | | supervision of a pathologist) The Gross Description was prepared | | | using a voice recognition system. The report was reviewed for | | | accuracy; however, sound-alike word errors, addition and/or deletions | | | may occur. If there is any question about this report, please | | | contact Client Services. PERFORMING LABORATORY: Professional | | | interpretation was performed by [facility] | | | [address] [address] (Medical | | | Director: Raji Palumbo M.D.; CLIA#: [id number]). The technical | | | component was performed by [facility], [address] [place] [address], | | | [facility] [address] (Job Setter: Basia De La Garza MD; CLIA# [id number]). | | | Diagnostician: Raji Palumbo MD Pathologist Electronically | | | Signed 04/29/2018 | | + + + + +---------+ + + | Performing | Address | City/State/Zipcode | Phone Number | | Organization | | | | + +---------+ + + | EXTERNAL LAB | | | | + +---------+ + + External Lab: CBC (04/26/2018 4:01 AM PST) + + + + + + | Component | Value | Ref Range | Performed | Pathologist | | | | | At | Signature | + + + + + + | WBC | 23.73 (H) | 3.80 - 11.00 | EXTERNAL | | | | | K/uL | LAB | | + + + + + + | RED CELL | 4.68 | 4.20 - 5.70 | EXTERNAL | | | COUNT | | M/uL | LAB | | + + + + + + | Hgb | 13.6 | 13.2 - 17.0 | EXTERNAL | | | | | g/dL | LAB | | + + + + + + | Hematocrit, | 42.1 | 39.0 - 50.0 % | EXTERNAL | | | POC | | | LAB | | + + + + + + | MCV | 89.9 | 80.0 - 100.0 fl | EXTERNAL | | | | | | LAB | | + + + + + + | MCH | 29.1 | 27.0 - 34.0 pg | EXTERNAL | | | | | | LAB | | + + + + + + | MCHC | 32.3 | 32.0 - 35.5 | EXTERNAL | | | | | g/dL | LAB | | + + + + + + | RDW-CV | 44.6 | 37 - 53 fl | EXTERNAL | | | | | | LAB | | + + + + + + | Platelet | 239 | 150 - 400 K/uL | EXTERNAL | | | Count | | | LAB | | | Plasma | | | | | + + + + + + | MPV | 8.3 | fl | EXTERNAL | | | | | | LAB | | + + + + + + | Differentia | MANUAL | | EXTERNAL | | | l Type | | | LAB | | + + + + + + | Segmented | 67 | % | EXTERNAL | | | Neutrophils | | | LAB | | | Manual | | | | | + + + + + + | % Bands | 20 | % | EXTERNAL | | | | | | LAB | | + + + + + + | Lymphocytes | 7 | % | EXTERNAL | | | Manual | | | LAB | | + + + + + + | Monocytes | 6 | % | EXTERNAL | | | Manual | | | LAB | | + + + + + + | Absolute | 15.90 (H) | 1.90 - 7.40 | EXTERNAL | | | Neutrophils | | K/uL | LAB | | + + + + + + | Bands | 4.75 (H) | 0.00 - 0.20 | EXTERNAL | | | Manual | | K/uL | LAB | | + + + + + + | Absolute | 1.66 | 1.00 - 3.90 | EXTERNAL | | | Lymphocytes | | K/uL | LAB | | + + + + + + | Absolute | 1.42 (H) | 0.00 - 0.80 | EXTERNAL | | | Monocytes | | K/uL | LAB | | + + + + + + | RBC | RBC AND PLT MORPHOLOGY | | EXTERNAL | | | Morphology | APPEAR NORMALComment: | | LAB | | | | Testing performed at | | | | | | [facility], [address] [facility] | | | | | | [place] | | | | | | [address] | | | | + + + + + + + + | Specimen | + + | Blood specimen | | (specimen) | + + + +---------+ + + | Performing | Address | City/State/Zipcode | Phone Number | | Organization | | | | + +---------+ + + | EXTERNAL LAB | | | | + +---------+ + + Phosphorus (04/26/2018 4:01 AM PST) + + + + + + | Component | Value | Ref Range | Performed | Pathologist | | | | | At | Signature | + + + + + + | PHOSPHORUS | 3.8Comment: SPECIMEN | 2.3 - 4.8 mg/dL | EXTERNAL | | | | SLIGHTLY | | LAB | | | | HEMOLYZEDTesting | | | | | | performed at [facility], [address] | | | | | | [facility], | | | | | | [place] [address] | | | | + + + + + + + + | Specimen | + + | Blood specimen | | (specimen) | + + + +---------+ + + | Performing | Address | City/State/Zipcode | Phone Number | | Organization | | | | + +---------+ + + | EXTERNAL LAB | | | | + +---------+ + + Magnesium (04/26/2018 4:01 AM PST) + + + + + + | Component | Value | Ref Range | Performed | Pathologist | | | | | At | Signature | + + + + + + | Magnesium | 2.6 (H)Comment: SPECIMEN | 1.7 - 2.4 mg/dL | EXTERNAL | | | | SLIGHTLY | | LAB | | | | HEMOLYZEDTesting | | | | | | performed at [facility], [address] | | | | | | [address] [place], | | | | | | [place] [address] | | | | + + + + + + + + | Specimen | + + | Blood specimen | | (specimen) | + + + +---------+ + + | Performing | Address | City/State/Zipcode | Phone Number | | Organization | | | | + +---------+ + + | EXTERNAL LAB | | | | + +---------+ + + Basic Metabolic Panel (04/26/2018 4:01 AM PST) + + + + + + | Component | Value | Ref Range | Performed | Pathologist | | | | | At | Signature | + + + + + + | Na | 138 | 135 - 145 | EXTERNAL | | | | | mmol/L | LAB | | + + + + + + | K | 4.8Comment: SPECIMEN | 3.5 - 4.9 | EXTERNAL | | | | SLIGHTLY HEMOLYZED | mmol/L | LAB | | + + + + + + | Cl | 108 | 99 - 109 mmol/L | EXTERNAL | | | | | | LAB | | + + + + + + | CO2 | 19 (L) | 23 - 32 mmol/L | EXTERNAL | | | | | | LAB | | + + + + + + | Anion Gap | 16 | 5 - 20 mmol/L | EXTERNAL | | | | | | LAB | | + + + + + + | Glucose, | 165 (H)Comment: SPECIMEN | 65 - 99 mg/dL | EXTERNAL | | | Fasting | SLIGHTLY HEMOLYZED | | LAB | | + + + + + + | BUN | 34 (H) | 8 - 25 mg/dL | EXTERNAL | | | | | | LAB | | + + + + + + | Creatinine | 1.8 (H)Comment: SPECIMEN | 0.70 - 1.30 | EXTERNAL | | | | SLIGHTLY HEMOLYZED | mg/dL | LAB | | + + + + + + | BUN/Creatin | 19 | | EXTERNAL | | | ine Ratio | | | LAB | | + + + + + + | Calcium | 7.3 (L) | 8.5 - 10.5 | EXTERNAL | | | | | mg/dL | LAB | | + + + + + + | Estimated | 41 (L)Comment: GFR <60: | mL/min/1.73m2 | EXTERNAL | | | GFR | CHRONIC KIDNEY DISEASE, | | LAB | | | | IF FOUND OVER [...] | | | | | performed at [facility], [address] | | | | | [facility], | | | | | | [place] [address] | | | | + + + + + + + + | Specimen | + + | Blood specimen | | (specimen) | + + + +---------+ + + | Performing | Address | City/State/Zipcode | Phone Number | | Organization | | | | + +---------+ + + | EXTERNAL LAB | | | | + +---------+ + + Lactic Acid (04/25/2018 9:05 PM PST) + + + + + + | Component | Value | Ref Range | Performed | Pathologist | | | | | At | Signature | + + + + + + | Lactate | 0.8Comment: Testing | 0.4 - 2.0 | EXTERNAL | | | | performed at [facility];[address] | mmol/L | LAB | | | | [address];[place], [place] | | | | | | [address] | | | | + + + + + + + + | Specimen | + + | | + + + +---------+ + + | Performing | Address | City/State/Zipcode | Phone Number | | Organization | | | | + +---------+ + + | EXTERNAL LAB | | | | + +---------+ + + Lactic Acid (04/25/2018 6:55 PM PST) + + + + + + | Component | Value | Ref Range | Performed | Pathologist | | | | | At | Signature | + + + + + + | Lactate | 1.1Comment: Testing | 0.4 - 2.0 | EXTERNAL | | | | performed at [facility];[address] | mmol/L | LAB | | | | [address];[place], [place] | | | | | | [address] | | | | + + + + + + + + | Specimen | + + | | + + + +---------+ + + | Performing | Address | City/State/Zipcode | Phone Number | | Organization | | | | + +---------+ + + | EXTERNAL LAB | | | | + +---------+ + + Procalcitonin (04/25/2018 6:47 PM PST) + + + + + + | Component | Value | Ref Range | Performed | Pathologist | | | | | At | Signature | + + + + + + | PROCALCITON | 13.47 (H)Comment: | ng/mL | EXTERNAL | | | IN | INTERPRETIVE | | LAB | | | | INFORMATION: | | | | | | PROCALCITONIN PCT <= | | | | | | 0.5 ng/mL: Low risk | | | | | | for progression to | | | | | | severe systemic | | | | | | bacterial infection | | | | | | (severe sepsis/septic | | | | | | shock). Does not | | | | | | exclude an infection, | | | | | | because localized | | | | | | infections may be | | | | | | associated with such low | | | | | | levels. If PCT is | | | | | | measured very early | | | | | | after bacterial | | | | | | challenge (usually <6 | | | | | | hours), results may | | | | | | still be low and | | | | | | should re-assess PCT | | | | | | 6-24 hours later. PCT | | | | | | >0.5 and <= 2 ng/mL: | | | | | | Moderate risk for | | | | | | progression to severe | | | | | | systemic infection | | | | | | (severe sepsis/septic | | | | | | shock). Other | | | | | | conditions are known | | | | | | to elevate PCT, patient | | | | | | should be closely | | | | | | monitored both | | | | | | clinically and by | | | | | | re-assessing PCT | | | | | | within 6-24 hours. PCT > | | | | | | 2 ng/mL: High | | | | | | likelihood for | | | | | | progression to severe | | | | | | systemic bacterial | | | | | | infection (severe | | | | | | sepsis/septic shock). | | | | | | PCT >= 10 ng/mL: | | | | | | High likelihood of | | | | | | severe sepsis or septic | | | | | | shock.Testing performed | | | | | | at [facility];[address] [facility] | | | | | | [facility];[place] [address] | | | | + + + + + + + + | Specimen | + + | | + + + +---------+ + + | Performing | Address | City/State/Zipcode | Phone Number | | Organization | | | | + +---------+ + + | EXTERNAL LAB | | | | + +---------+ + + Culture, Anaerobic (04/25/2018 4:35 PM PST) + + | Specimen | + + | | + + + + + | Narrative | Performed At | + + + | Specimen Description ABDOMEN SPECIAL | EXTERNAL LAB | | REQUESTS CX AND SENSITIVITY GRAM STAIN | | | 2+ | | | WBC'S SEEN | | | NO EPITHELIAL CELLS SEEN | | | NO ORGANISMS SEEN CULTURE | | | NO GROWTH 4 DAYS | | + + + + +---------+ + + | Performing | Address | City/State/Zipcode | Phone Number | | Organization | | | | + +---------+ + + | EXTERNAL LAB | | | | + +---------+ + + XR Abdomen AP (04/25/2018 2:20 PM PST) + + | Specimen | + + | | + + + + + | Impressions | Performed At | + + + | Air-filled small and large bowel seen in the abdomen and pelvis | | | without evidence of pneumatosis intestinalis or pneumoperitoneum. | | | Signed by: Otis Hinton Sign Date/Time: 04/25/2018 2:45 PM | | + + + + + + | Narrative | Performed At | + + + | ABDOMEN ONE VIEW ([facility]) CLINICAL INFORMATION: Abdominal pain. | | | Diffuse inflammation of the colon seen on CT scan of the abdomen | | | and pelvis 04/23/2018. COMPARISON: CT ABDOMEN PELVIS W CONTRAST | | | (04/23/2018); FINDINGS: Dilated air-filled loops of small bowel | | | measuring up to 42 mm in diameter are noted. Gas is also seen in | | | the colon. No pneumatosis intestinalis or pneumoperitoneum is | | | noted. Overlying EKG leads are seen in the upper abdomen and chest. | | | The skeletal structures appear normal. | | + + + + + | Procedure Note | + + | Ronny, Rad Conversion - 10/11/2018 9:22 PM PDT ABDOMEN ONE VIEW (KUB) | | CLINICAL INFORMATION: | | Abdominal pain. Diffuse inflammation of the colon seen on CT scan of | | the abdomen and pelvis 04/23/2018. | | COMPARISON: | | CT ABDOMEN PELVIS W CONTRAST (04/23/2018); | | FINDINGS: | | Dilated air-filled loops of small bowel measuring up to 42 mm in | | diameter are noted. Gas is also seen in the colon. No pneumatosis | | intestinalis or pneumoperitoneum is noted. Overlying EKG leads are | | seen in the upper abdomen and chest. The skeletal structures appear | | normal. | | IMPRESSION: | | Air-filled small and large bowel seen in the abdomen and pelvis without | | evidence of pneumatosis intestinalis or pneumoperitoneum. | | Signed by: Otis Hinton | | Sign Date/Time: 04/25/2018 2:45 PM | + + External Lab: CBC (04/25/2018 4:06 AM PST) + + + + + + | Component | Value | Ref Range | Performed | Pathologist | | | | | At | Signature | + + + + + + | WBC | 24.61 (H) | 3.80 - 11.00 | EXTERNAL | | | | | K/uL | LAB | | + + + + + + | RED CELL | 4.74 | 4.20 - 5.70 | EXTERNAL | | | COUNT | | M/uL | LAB | | + + + + + + | Hgb | 13.7 | 13.2 - 17.0 | EXTERNAL | | | | | g/dL | LAB | | + + + + + + | Hematocrit, | 42.5 | 39.0 - 50.0 % | EXTERNAL | | | POC | | | LAB | | + + + + + + | MCV | 89.7 | 80.0 - 100.0 fl | EXTERNAL | | | | | | LAB | | + + + + + + | MCH | 28.9 | 27.0 - 34.0 pg | EXTERNAL | | | | | | LAB | | + + + + + + | MCHC | 32.2 | 32.0 - 35.5 | EXTERNAL | | | | | g/dL | LAB | | + + + + + + | RDW-CV | 43.3 | 37 - 53 fl | EXTERNAL | | | | | | LAB | | + + + + + + | Platelet | 280 | 150 - 400 K/uL | EXTERNAL | | | Count | | | LAB | | | Plasma | | | | | + + + + + + | MPV | 8.4 | fl | EXTERNAL | | | | | | LAB | | + + + + + + | Differentia | MANUAL | | EXTERNAL | | | l Type | | | LAB | | + + + + + + | Segmented | 54 | % | EXTERNAL | | | Neutrophils | | | LAB | | | Manual | | | | | + + + + + + | % Bands | 32 | % | EXTERNAL | | | | | | LAB | | + + + + + + | % | 1 | % | EXTERNAL | | | Metamyelocy | | | LAB | | | jodi | | | | | + + + + + + | Lymphocytes | 1 | % | EXTERNAL | | | Manual | | | LAB | | + + + + + + | Monocytes | 12 | % | EXTERNAL | | | Manual | | | LAB | | + + + + + + | Absolute | 13.28 (H) | 1.90 - 7.40 | EXTERNAL | | | Neutrophils | | K/uL | LAB | | + + + + + + | Bands | 7.88 (H) | 0.00 - 0.20 | EXTERNAL | | | Manual | | K/uL | LAB | | + + + + + + | Absolute | 0.25 (H) | K/uL | EXTERNAL | | | Metamyelocy | | | LAB | | | jodi | | | | | + + + + + + | Absolute | 0.25 (L) | 1.00 - 3.90 | EXTERNAL | | | Lymphocytes | | K/uL | LAB | | + + + + + + | Absolute | 2.95 (H) | 0.00 - 0.80 | EXTERNAL | | | Monocytes | | K/uL | LAB | | + + + + + + | RBC | RBC AND PLT MORPHOLOGY | | EXTERNAL | | | Morphology | APPEAR NORMALComment: | | LAB | | | | Testing performed at | | | | | | [facility], [address] | | | | | | [place] | | | | | | [address] | | | | + + + + + + + + | Specimen | + + | Blood specimen | | (specimen) | + + + +---------+ + + | Performing | Address | City/State/Zipcode | Phone Number | | Organization | | | | + +---------+ + + | EXTERNAL LAB | | | | + +---------+ + + Phosphorus (04/25/2018 4:06 AM PST) + + + + + + | Component | Value | Ref Range | Performed | Pathologist | | | | | At | Signature | + + + + + + | PHOSPHORUS | 3.2Comment: Testing | 2.3 - 4.8 mg/dL | EXTERNAL | | | | performed at [facility], [address] | | LAB | | | | [address] [place], | | | | | | [place] [address] | | | | + + + + + + + + | Specimen | + + | Blood specimen | | (specimen) | + + + +---------+ + + | Performing | Address | City/State/Zipcode | Phone Number | | Organization | | | | + +---------+ + + | EXTERNAL LAB | | | | + +---------+ + + Magnesium (04/25/2018 4:06 AM PST) + + + + + + | Component | Value | Ref Range | Performed | Pathologist | | | | | At | Signature | + + + + + + | Magnesium | 2.3Comment: Testing | 1.7 - 2.4 mg/dL | EXTERNAL | | | | performed at [facility], [address] | | LAB | | | | [address] [place], | | | | | | [place] [address] | | | | + + + + + + + + | Specimen | + + | Blood specimen | | (specimen) | + + + +---------+ + + | Performing | Address | City/State/Zipcode | Phone Number | | Organization | | | | + +---------+ + + | EXTERNAL LAB | | | | + +---------+ + + Basic Metabolic Panel (04/25/2018 4:06 AM PST) + + + + + + | Component | Value | Ref Range | Performed | Pathologist | | | | | At | Signature | + + + + + + | Na | 134 (L) | 135 - 145 | EXTERNAL | | | | | mmol/L | LAB | | + + + + + + | K | 4.2 | 3.5 - 4.9 | EXTERNAL | | | | | mmol/L | LAB | | + + + + + + | Cl | 102 | 99 - 109 mmol/L | EXTERNAL | | | | | | LAB | | + + + + + + | CO2 | 20 (L) | 23 - 32 mmol/L | EXTERNAL | | | | | | LAB | | + + + + + + | Anion Gap | 16 | 5 - 20 mmol/L | EXTERNAL | | | | | | LAB | | + + + + + + | Glucose, | 85 | 65 - 99 mg/dL | EXTERNAL | | | Fasting | | | LAB | | + + + + + + | BUN | 27 (H) | 8 - 25 mg/dL | EXTERNAL | | | | | | LAB | | + + + + + + | Creatinine | 2.0 (H) | 0.70 - 1.30 | EXTERNAL | | | | | mg/dL | LAB | | + + + + + + | BUN/Creatin | 14 | | EXTERNAL | | | ine Ratio | | | LAB | | + + + + + + | Calcium | 7.7 (L) | 8.5 - 10.5 | EXTERNAL | | | | | mg/dL | LAB | | + + + + + + | Estimated | 36 (L)Comment: GFR <60: | mL/min/1.73m2 | EXTERNAL | | | GFR | CHRONIC KIDNEY DISEASE, | | LAB | | | | IF FOUND OVER [...] | | | | | performed at [facility], [address] | | | | | | [address], | | | | | | [place] [address] | | | | + + + + + + + + | Specimen | + + | Blood specimen | | (specimen) | + + + +---------+ + + | Performing | Address | City/State/Zipcode | Phone Number | | Organization | | | | + +---------+ + + | EXTERNAL LAB | | | | + +---------+ + + HISTORICAL MICROBIOLOGY RESULT (04/24/2018 2:05 PM PST) + + | Specimen | + + | | + + + + + | Narrative | Performed At | + + + | GDH ANTIGEN POSITIVE Abnormal | EXTERNAL LAB | | TOXIN A POSITIVE Abnormal | | | C DIFF INTERPRETATION Positive for toxigenic | | | C.difficile, active toxin present. Testing performed at [facility];[address] [place] [address] | | | [place] [address] | | + + + + +---------+ + + | Performing | Address | City/State/Zipcode | Phone Number | | Organization | | | | + +---------+ + + | EXTERNAL LAB | | | | + +---------+ + + External Lab: Occult Blood, Screening (04/24/2018 2:05 PM PST) + + | Specimen | + + | Stool specimen | | (specimen) | + + + + + | Narrative | Performed At | + + + | Fecal Occult Blood NEGATIVE Testing | EXTERNAL LAB | | performed at [facility];[address] [place] [address];[place] [address] | | + + + + +---------+ + + | Performing | Address | City/State/Zipcode | Phone Number | | Organization | | | | + +---------+ + + | EXTERNAL LAB | | | | + +---------+ + + Lactic Acid (04/24/2018 4:29 AM PST) + + + + + + | Component | Value | Ref Range | Performed | Pathologist | | | | | At | Signature | + + + + + + | Lactate | 0.6Comment: Testing | 0.4 - 2.0 | EXTERNAL | | | | performed at [facility];[address] | mmol/L | LAB | | | | [place] | | | | | | [address] | | | | + + + + + + + + | Specimen | + + | | + + + +---------+ + + | Performing | Address | City/State/Zipcode | Phone Number | | Organization | | | | + +---------+ + + | EXTERNAL LAB | | | | + +---------+ + + External Lab: CBC (04/24/2018 4:28 AM PST) + + + + + + | Component | Value | Ref Range | Performed | Pathologist | | | | | At | Signature | + + + + + + | WBC | 23.93 (H) | 3.80 - 11.00 | EXTERNAL | | | | | K/uL | LAB | | + + + + + + | RED CELL | 4.60 | 4.20 - 5.70 | EXTERNAL | | | COUNT | | M/uL | LAB | | + + + + + + | Hgb | 13.3 | 13.2 - 17.0 | EXTERNAL | | | | | g/dL | LAB | | + + + + + + | Hematocrit, | 41.1 | 39.0 - 50.0 % | EXTERNAL | | | POC | | | LAB | | + + + + + + | MCV | 89.3 | 80.0 - 100.0 fl | EXTERNAL | | | | | | LAB | | + + + + + + | MCH | 28.8 | 27.0 - 34.0 pg | EXTERNAL | | | | | | LAB | | + + + + + + | MCHC | 32.3 | 32.0 - 35.5 | EXTERNAL | | | | | g/dL | LAB | | + + + + + + | RDW-CV | 43.8 | 37 - 53 fl | EXTERNAL | | | | | | LAB | | + + + + + + | Platelet | 290 | 150 - 400 K/uL | EXTERNAL | | | Count | | | LAB | | | Plasma | | | | | + + + + + + | MPV | 8.0 | fl | EXTERNAL | | | | | | LAB | | + + + + + + | Differentia | MANUAL | | EXTERNAL | | | l Type | | | LAB | | + + + + + + | Segmented | 70 | % | EXTERNAL | | | Neutrophils | | | LAB | | | Manual | | | | | + + + + + + | % Bands | 22 | % | EXTERNAL | | | | | | LAB | | + + + + + + | Lymphocytes | 3 | % | EXTERNAL | | | Manual | | | LAB | | + + + + + + | Monocytes | 5 | % | EXTERNAL | | | Manual | | | LAB | | + + + + + + | Absolute | 16.75 (H) | 1.90 - 7.40 | EXTERNAL | | | Neutrophils | | K/uL | LAB | | + + + + + + | Bands | 5.26 (H) | 0.00 - 0.20 | EXTERNAL | | | Manual | | K/uL | LAB | | + + + + + + | Absolute | 0.72 (L) | 1.00 - 3.90 | EXTERNAL | | | Lymphocytes | | K/uL | LAB | | + + + + + + | Absolute | 1.20 (H) | 0.00 - 0.80 | EXTERNAL | | | Monocytes | | K/uL | LAB | | + + + + + + | RBC | RBC AND PLT MORPHOLOGY | | EXTERNAL | | | Morphology | APPEAR NORMALComment: | | LAB | | | | Testing performed at | | | | | | [facility], [address] | | | | | | [place], [place] | | | | | | [address] | | | | + + + + + + + + | Specimen | + + | Blood specimen | | (specimen) | + + + +---------+ + + | Performing | Address | City/State/Zipcode | Phone Number | | Organization | | | | + +---------+ + + | EXTERNAL LAB | | | | + +---------+ + + Phosphorus (04/24/2018 4:28 AM PST) + + + + + + | Component | Value | Ref Range | Performed | Pathologist | | | | | At | Signature | + + + + + + | PHOSPHORUS | 2.3Comment: Testing | 2.3 - 4.8 mg/dL | EXTERNAL | | | | performed at [facility], [address] | | LAB | | | | [address], | | | | | | [place] [address] | | | | + + + + + + + + | Specimen | + + | Blood specimen | | (specimen) | + + + +---------+ + + | Performing | Address | City/State/Zipcode | Phone Number | | Organization | | | | + +---------+ + + | EXTERNAL LAB | | | | + +---------+ + + Magnesium (04/24/2018 4:28 AM PST) + + + + + + | Component | Value | Ref Range | Performed | Pathologist | | | | | At | Signature | + + + + + + | Magnesium | 2.2Comment: Testing | 1.7 - 2.4 mg/dL | EXTERNAL | | | | performed at [facility], [address] | | LAB | | | | [address], | | | | | | [place] [address] | | | | + + + + + + + + | Specimen | + + | Blood specimen | | (specimen) | + + + +---------+ + + | Performing | Address | City/State/Zipcode | Phone Number | | Organization | | | | + +---------+ + + | EXTERNAL LAB | | | | + +---------+ + + Basic Metabolic Panel (04/24/2018 4:28 AM PST) + + + + + + | Component | Value | Ref Range | Performed | Pathologist | | | | | At | Signature | + + + + + + | Na | 135 | 135 - 145 | EXTERNAL | | | | | mmol/L | LAB | | + + + + + + | K | 4.1 | 3.5 - 4.9 | EXTERNAL | | | | | mmol/L | LAB | | + + + + + + | Cl | 104 | 99 - 109 mmol/L | EXTERNAL | | | | | | LAB | | + + + + + + | CO2 | 22 (L) | 23 - 32 mmol/L | EXTERNAL | | | | | | LAB | | + + + + + + | Anion Gap | 13 | 5 - 20 mmol/L | EXTERNAL | | | | | | LAB | | + + + + + + | Glucose, | 114 (H) | 65 - 99 mg/dL | EXTERNAL | | | Fasting | | | LAB | | + + + + + + | BUN | 20 | 8 - 25 mg/dL | EXTERNAL | | | | | | LAB | | + + + + + + | Creatinine | 1.0 | 0.70 - 1.30 | EXTERNAL | | | | | mg/dL | LAB | | + + + + + + | BUN/Creatin | 20 | | EXTERNAL | | | ine Ratio | | | LAB | | + + + + + + | Calcium | 7.2 (L) | 8.5 - 10.5 | EXTERNAL | | | | | mg/dL | LAB | | + + + + + + | Estimated | >60Comment: GFR <60: | mL/min/1.73m2 | EXTERNAL | | | GFR | CHRONIC KIDNEY DISEASE, | | LAB | | | | IF FOUND OVER [...] | | | | | performed at [facility], [address] | | | | | | [facility], | | | | | | [place] [address] | | | | + + + + + + + + | Specimen | + + | Blood specimen | | (specimen) | + + + +---------+ + + | Performing | Address | City/State/Zipcode | Phone Number | | Organization | | | | + +---------+ + + | EXTERNAL LAB | | | | + +---------+ + + Lactic Acid (04/23/2018 9:58 PM PST) + + + + + + | Component | Value | Ref Range | Performed | Pathologist | | | | | At | Signature | + + + + + + | Lactate | 1.3Comment: Testing | 0.4 - 2.0 | EXTERNAL | | | | performed at [facility];[address] | mmol/L | LAB | | | | [address] [place] | | | | | | [address] | | | | + + + + + + + + | Specimen | + + | | + + + +---------+ + + | Performing | Address | City/State/Zipcode | Phone Number | | Organization | | | | + +---------+ + + | EXTERNAL LAB | | | | + +---------+ + + Lactic Acid (04/23/2018 1:18 PM PST) + + + + + + | Component | Value | Ref Range | Performed | Pathologist | | | | | At | Signature | + + + + + + | Lactate | 1.7Comment: Testing | 0.4 - 2.0 | EXTERNAL | | | | performed at [facility];[address] | mmol/L | LAB | | | | [place] | | | | | | [address] | | | | + + + + + + + + | Specimen | + + | | + + + +---------+ + + | Performing | Address | City/State/Zipcode | Phone Number | | Organization | | | | + +---------+ + + | EXTERNAL LAB | | | | + +---------+ + + Culture, Urine (04/23/2018 12:51 PM PST) + + | Specimen | + + | Urine specimen | | (specimen) | + + + + + | Narrative | Performed At | + + + | Specimen Description CATHETERIZED URINE | EXTERNAL LAB | | CULTURE NO GROWTH | | + + + + +---------+ + + | Performing | Address | City/State/Zipcode | Phone Number | | Organization | | | | + +---------+ + + | EXTERNAL LAB | | | | + +---------+ + + Urinalysis, Microscopic Only (04/23/2018 12:51 PM PST) + + + + + + | Component | Value | Ref Range | Performed | Pathologist | | | | | At | Signature | + + + + + + | WBC, UA | NONE SEENComment: | 0 - 5 /hpf | EXTERNAL | | | | | | LAB | | + + + + + + | RBC, UA | 26-49 | 0 - 2 /hpf | EXTERNAL | | | | | | LAB | | + + + + + + | Epithelial | NONE SEEN | /lpf | EXTERNAL | | | Cells | | | LAB | | + + + + + + | Bacteria, | NONE SEEN | | EXTERNAL | | | UA | | | LAB | | + + + + + + | MUCUS UA | 1+Comment: Testing | | EXTERNAL | | | | performed at [facility], [address] | | LAB | | | | [address], | | | | | | [place] [address] | | | | + + + + + + + + | Specimen | + + | | + + + +---------+ + + | Performing | Address | City/State/Zipcode | Phone Number | | Organization | | | | + +---------+ + + | EXTERNAL LAB | | | | + +---------+ + + Urinalysis with Microscopic if Indicated (04/23/2018 12:51 PM PST) + + + + + + | Component | Value | Ref Range | Performed | Pathologist | | | | | At | Signature | + + + + + + | Color | [place] | | EXTERNAL | | | | | | LAB | | + + + + + + | Clarity | CLEAR | | EXTERNAL | | | | | | LAB | | + + + + + + | Specific | >1.060 (H) | 1.002 - 1.030 | EXTERNAL | | | [place] | | | LAB | | + + + + + + | Leukocyte | NEGATIVEComment: | | EXTERNAL | | | Esterase, | | | LAB | | | Urine | | | | | + + + + + + | Nitrite, | NEGATIVE | | EXTERNAL | | | Urine | | | LAB | | + + + + + + | Urobilinoge | NORMAL | mg/dL | EXTERNAL | | | n, Urine | | | LAB | | + + + + + + | Protein, | 30 (A) | mg/dL | EXTERNAL | | | Urine | | | LAB | | + + + + + + | pH, Urine | 6.0 | 5.0 - 8.0 | EXTERNAL | | | | | | LAB | | + + + + + + | Blood, | SMALL (A) | | EXTERNAL | | | Urine | | | LAB | | + + + + + + | Ketones | NEGATIVE | mg/dL | EXTERNAL | | | | | | LAB | | + + + + + + | Bilirubin, | NEGATIVE | | EXTERNAL | | | Urine | | | LAB | | + + + + + + | Glucose, | NEGATIVEComment: Testing | mg/dL | EXTERNAL | | | Urine | performed at [facility], [address] | | LAB | | | | [address] | | | | | | [place] [address] | | | | + + + + + + + + | Specimen | + + | Urine specimen | | (specimen) | + + + +---------+ + + | Performing | Address | City/State/Zipcode | Phone Number | | Organization | | | | + +---------+ + + | EXTERNAL LAB | | | | + +---------+ + + Troponin I (04/23/2018 12:25 PM PST) + + + + + + | Component | Value | Ref Range | Performed | Pathologist | | | | | At | Signature | + + + + + + | Troponin I, | <0.006Comment: 0.04 | 0.00 - 0.04 | EXTERNAL | | | Qual | ng/mL or less | ng/mL | LAB | | | | Negative, repeat | | | | | | testing in four to six | | | | | | hour if clinically | | | | | | indicted0.05 to 0.77 | | | | | | ng/mL | | | | | | Suspicious for | | | | | | myocardial injury. | | | | | | Serial measurements may | | | | | | be necessary to confirm | | | | | | or exclude the diagnosis | | | | | | of acute coronary | | | | | | syndrome. Repeat testing | | | | | | in four to six hours if | | | | | | indicated.0.78 or | | | | | | greater ng/mL | | | | | | Consistent with | | | | | | myocardial injury. | | | | | | Clinical and laboratory | | | | | | correlation recommended. | | | | | | NOTE NEW REFERENCE | | | | | | RANGETesting performed | | | | | | at [facility];[address] [place] [address] | | | | | | [facility];[place] [address] | | | | + + + + + + + + | Specimen | + + | Blood specimen | | (specimen) | + + + +---------+ + + | Performing | Address | City/State/Zipcode | Phone Number | | Organization | | | | + +---------+ + + | EXTERNAL LAB | | | | + +---------+ + + Lactate Dehydrogenase (04/23/2018 12:25 PM PST) + + + + + + | Component | Value | Ref Range | Performed | Pathologist | | | | | At | Signature | + + + + + + | LDH TOTAL | 196Comment: NOTE NEW | 120 - 246 U/L | EXTERNAL | | | | REFERENCE RANGETesting | | LAB | | | | performed at [facility];[address] | | | | | | [address];[place] | | | | | | [address] | | | | + + + + + + + + | Specimen | + + | Blood specimen | | (specimen) | + + + +---------+ + + | Performing | Address | City/State/Zipcode | Phone Number | | Organization | | | | + +---------+ + + | EXTERNAL LAB | | | | + +---------+ + + CK Total (04/23/2018 12:25 PM PST) + + + + + + | Component | Value | Ref Range | Performed | Pathologist | | | | | At | Signature | + + + + + + | CK, Total | 43 (L)Comment: Testing | 55 - 400 U/L | EXTERNAL | | | | performed at [facility];[address] | | LAB | | | | [address];[place] | | | | | | [address] | | | | + + + + + + + + | Specimen | + + | Blood specimen | | (specimen) | + + + +---------+ + + | Performing | Address | City/State/Zipcode | Phone Number | | Organization | | | | + +---------+ + + | EXTERNAL LAB | | | | + +---------+ + + CT Abdomen Pelvis w Contrast (04/23/2018 11:41 AM PST) + + | Specimen | + + | | + + + + + | Impressions | Performed At | + + + | 1. Circumferential wall thickening of the entire colon is present. | | | Findings may reflect colitis versus inflammatory bowel disease. No | | | dilated loops of large bowel are present and there is no evidence of | | | pneumatosis to suggest ischemic bowel. Signed by: Darryl Pat | | | Sign Date/Time: 04/23/2018 12:08 PM | | + + + + + + | Narrative | Performed At | + + + | CT ABDOMEN AND PELVIS WITH CONTRAST CLINICAL INFORMATION: | | | Abdominal pain, fever, hypotensive at risk for ischemic bowel. | | | COMPARISON: None PROCEDURE: Axial images through the abdomen and | | | pelvis after the administration of 100 ml omnipaque 350 intravenous | | | contrast. Multiplanar reconstructions. At least one of the following | | | CT dose optimization techniques were used: Automated exposure | | | control; Adjustment of mA and/or kV according to patient size; Use of | | | iterative reconstruction technique. FINDINGS: LUNG BASES: There is | | | patchy atelectasis of lower lobes bilaterally. The heart is normal in | | | size. No pericardial or pleural fluid is present. ABDOMEN Liver | | | and Biliary: No gallbladder or biliary abnormality. No significant | | | liver abnormality. Pancreas, Spleen and Adrenals: No pancreatitis or | | | pancreatic mass. No splenomegaly, splenic mass or splenic hemorrhage. | | | No significant adrenal abnormality. Kidneys: No hydronephrosis, | | | calculus or solid renal mass. ABDOMEN AND PELVIS Bowel: | | | Circumferential wall thickening is noted of the large bowel. Adjacent | | | inflammatory changes are noted throughout the large bowel | | | particularly the transverse and right colon. There is no evidence of | | | anti dependent pneumatosis. No dilated loops of bowel are present. | | | Vessels: No significant abnormality in the aorta or its proximal | | | branches. No significant abnormality in the portal veins, mesenteric | | | veins or systemic veins. Lymph Nodes: No adenopathy. Peritoneum and | | | Retroperitoneum: There is mild ascites. No free air is present. | | | PELVIS Genitourinary: A Brown catheter decompresses the bladder. | | | BODY WALL Soft Tissues: There is subcutaneous edema bilaterally along | | | the flank. Bones: There is moderate degenerative disc disease of the | | | lower lumbar spine. | | + + + + + | Procedure Note | + + | Sebastian Jefferson Conversion - 10/11/2018 9:[address] ABDOMEN AND PELVIS WITH CONTRAST | | CLINICAL INFORMATION: | | Abdominal pain, fever, hypotensive at risk for ischemic bowel. | | COMPARISON: | | None | | PROCEDURE: | | Axial images through the abdomen and pelvis after the administration of | | 100 ml omnipaque 350 intravenous contrast. Multiplanar reconstructions. | | At least one of the following CT dose optimization techniques were | | used: Automated exposure control; Adjustment of mA and/or kV according | | to patient size; Use of iterative reconstruction technique. | | FINDINGS: | | LUNG BASES: There is patchy atelectasis of lower lobes bilaterally. | | The heart is normal in size. No pericardial or pleural fluid is | | present. | | ABDOMEN | | Liver and Biliary: No gallbladder or biliary abnormality. No | | significant liver abnormality. | | Pancreas, Spleen and Adrenals: No pancreatitis or pancreatic mass. No | | splenomegaly, splenic mass or splenic hemorrhage. No significant | | adrenal abnormality. | | Kidneys: No hydronephrosis, calculus or solid renal mass. | | ABDOMEN AND PELVIS | | Bowel: Circumferential wall thickening is noted of the large bowel. | | Adjacent inflammatory changes are noted throughout the large bowel | | particularly the transverse and right colon. There is no evidence of | | anti dependent pneumatosis. No dilated loops of bowel are present. | | Vessels: No significant abnormality in the aorta or its proximal | | branches. No significant abnormality in the portal veins, mesenteric | | veins or systemic veins. | | Lymph Nodes: No adenopathy. | | Peritoneum and Retroperitoneum: There is mild ascites. No free air is | | present. | | PELVIS | | Genitourinary: A Brown catheter decompresses the bladder. | | BODY WALL | | Soft Tissues: There is subcutaneous edema bilaterally along the flank. | | Bones: There is moderate degenerative disc disease of the lower lumbar | | spine. | | IMPRESSION: | | 1. Circumferential wall thickening of the entire colon is present. | | Findings may reflect colitis versus inflammatory bowel disease. No | | dilated loops of large bowel are present and there is no evidence of | | pneumatosis to suggest ischemic bowel. | | Signed by: Darryl Pat | | Sign Date/Time: 04/23/2018 12:08 PM | + + XR Chest 1 Vw (04/23/2018 10:09 AM PST) + + | Specimen | + + | | + + + + + | Impressions | Performed At | + + + | Hypoventilatory chest x-ray. No acute cardiopulmonary findings.) | | | Signed by: MD Skinny, Matthias Sign Date/Time: 04/23/2018 10:33 AM | | + + + + + + | Narrative | Performed At | + + + | CHEST ONE VIEW CLINICAL INFORMATION: Fever. COMPARISON: XR C-ARM | | | FLUORO UP TO 1 HOUR (04/19/2018); XR C-ARM FLUORO OVER 1 HOUR | | | (11/27/2016); FINDINGS: The lungs are hypoventilatory. No focal | | | infiltrate, pleural effusion, or pneumothorax is seen. The heart | | | and mediastinal contours are normal. A cervical fusion plate is | | | present at the lower cervical level. | | + + + + + | Procedure Note | + + | Ronny, Rad Conversion - 10/11/2018 9:22 PM PDT [facility] | | CLINICAL INFORMATION: | | Fever. | | COMPARISON: | | XR C-ARM FLUORO UP TO 1 HOUR (04/19/2018); XR C-ARM FLUORO OVER 1 HOUR | | (11/27/2016); | | FINDINGS: | | The lungs are hypoventilatory. No focal infiltrate, pleural effusion, | | or pneumothorax is seen. The heart and mediastinal contours are | | normal. A cervical fusion plate is present at the lower cervical level. | | IMPRESSION: | | Hypoventilatory chest x-ray. No acute cardiopulmonary findings.) | | Signed by: MD Babb John | | Sign Date/Time: 04/23/2018 10:33 AM | + + Culture, Blood, 2nd Specimen (04/23/2018 8:58 AM PST) + + | Specimen | + + | Blood specimen | | (specimen) | + + + + + | Narrative | Performed At | + + + | Specimen Description BLOOD, PERIPHERAL DRAW | EXTERNAL LAB | | SPECIAL REQUESTS LWRIST CULTURE | | | NO GROWTH 6 DAYS | | + + + + +---------+ + + | Performing | Address | City/State/Zipcode | Phone Number | | Organization | | | | + +---------+ + + | EXTERNAL LAB | | | | + +---------+ + + Culture, Blood (04/23/2018 8:51 AM PST) + + | Specimen | + + | Blood specimen | | (specimen) | + + + + + | Narrative | Performed At | + + + | Specimen Description BLOOD, PERIPHERAL DRAW | EXTERNAL LAB | | SPECIAL REQUESTS RAC CULTURE | | | NO GROWTH 6 DAYS | | + + + + +---------+ + + | Performing | Address | City/State/Zipcode | Phone Number | | Organization | | | | + +---------+ + + | EXTERNAL LAB | | | | + +---------+ + + External Lab: CBC (04/23/2018 4:15 AM PST) + + + + + + | Component | Value | Ref Range | Performed | Pathologist | | | | | At | Signature | + + + + + + | WBC | 28.19 (H) | 3.80 - 11.00 | EXTERNAL | | | | | K/uL | LAB | | + + + + + + | RED CELL | 5.04 | 4.20 - 5.70 | EXTERNAL | | | COUNT | | M/uL | LAB | | + + + + + + | Hgb | 14.7 | 13.2 - 17.0 | EXTERNAL | | | | | g/dL | LAB | | + + + + + + | Hematocrit, | 45.0 | 39.0 - 50.0 % | EXTERNAL | | | POC | | | LAB | | + + + + + + | MCV | 89.2 | 80.0 - 100.0 fl | EXTERNAL | | | | | | LAB | | + + + + + + | MCH | 29.1 | 27.0 - 34.0 pg | EXTERNAL | | | | | | LAB | | + + + + + + | MCHC | 32.6 | 32.0 - 35.5 | EXTERNAL | | | | | g/dL | LAB | | + + + + + + | RDW-CV | 41.6 | 37 - 53 fl | EXTERNAL | | | | | | LAB | | + + + + + + | Platelet | 307 | 150 - 400 K/uL | EXTERNAL | | | Count | | | LAB | | | Plasma | | | | | + + + + + + | MPV | 7.8 | fl | EXTERNAL | | | | | | LAB | | + + + + + + | Differentia | MANUAL | | EXTERNAL | | | l Type | | | LAB | | + + + + + + | Segmented | 78 | % | EXTERNAL | | | Neutrophils | | | LAB | | | Manual | | | | | + + + + + + | % Bands | 10 | % | EXTERNAL | | | | | | LAB | | + + + + + + | Lymphocytes | 8 | % | EXTERNAL | | | Manual | | | LAB | | + + + + + + | Monocytes | 4 | % | EXTERNAL | | | Manual | | | LAB | | + + + + + + | Absolute | 21.98 (H) | 1.90 - 7.40 | EXTERNAL | | | Neutrophils | | K/uL | LAB | | + + + + + + | Bands | 2.82 (H) | 0.00 - 0.20 | EXTERNAL | | | Manual | | K/uL | LAB | | + + + + + + | Absolute | 2.26 | 1.00 - 3.90 | EXTERNAL | | | Lymphocytes | | K/uL | LAB | | + + + + + + | Absolute | 1.13 (H) | 0.00 - 0.80 | EXTERNAL | | | Monocytes | | K/uL | LAB | | + + + + + + | RBC | RBC AND PLT MORPHOLOGY | | EXTERNAL | | | Morphology | APPEAR NORMALComment: | | LAB | | | | Testing performed at | | | | | | [facility], [address] | | | | | | [place], [place] | | | | | | [address] | | | | + + + + + + + + | Specimen | + + | Blood specimen | | (specimen) | + + + +---------+ + + | Performing | Address | City/State/Zipcode | Phone Number | | Organization | | | | + +---------+ + + | EXTERNAL LAB | | | | + +---------+ + + Phosphorus (04/23/2018 4:15 AM PST) + + + + + + | Component | Value | Ref Range | Performed | Pathologist | | | | | At | Signature | + + + + + + | PHOSPHORUS | 2.5Comment: Testing | 2.3 - 4.8 mg/dL | EXTERNAL | | | | performed at [facility], [address] | LAB | | | | [address], | | | | | | [place] [address] | | | | + + + + + + + + | Specimen | + + | Blood specimen | | (specimen) | + + + +---------+ + + | Performing | Address | City/State/Zipcode | Phone Number | | Organization | | | | + +---------+ + + | EXTERNAL LAB | | | | + +---------+ + + Magnesium (04/23/2018 4:15 AM PST) + + + + + + | Component | Value | Ref Range | Performed | Pathologist | | | | | At | Signature | + + + + + + | Magnesium | 2.2Comment: Testing | 1.7 - 2.4 mg/dL | EXTERNAL | | | | performed at [facility], [address] | | LAB | | | | [address], | | | | | | [place] [address] | | | | + + + + + + + + | Specimen | + + | Blood specimen | | (specimen) | + + + +---------+ + + | Performing | Address | City/State/Zipcode | Phone Number | | Organization | | | | + +---------+ + + | EXTERNAL LAB | | | | + +---------+ + + Basic Metabolic Panel (04/23/2018 4:15 AM PST) + + + + + + | Component | Value | Ref Range | Performed | Pathologist | | | | | At | Signature | + + + + + + | Na | 139 | 135 - 145 | EXTERNAL | | | | | mmol/L | LAB | | + + + + + + | K | 3.9 | 3.5 - 4.9 | EXTERNAL | | | | | mmol/L | LAB | | + + + + + + | Cl | 104 | 99 - 109 mmol/L | EXTERNAL | | | | | | LAB | | + + + + + + | CO2 | 25 | 23 - 32 mmol/L | EXTERNAL | | | | | | LAB | | + + + + + + | Anion Gap | 14 | 5 - 20 mmol/L | EXTERNAL | | | | | | LAB | | + + + + + + | Glucose, | 116 (H) | 65 - 99 mg/dL | EXTERNAL | | | Fasting | | | LAB | | + + + + + + | BUN | 20 | 8 - 25 mg/dL | EXTERNAL | | | | | | LAB | | + + + + + + | Creatinine | 1.0 | 0.70 - 1.30 | EXTERNAL | | | | | mg/dL | LAB | | + + + + + + | BUN/Creatin | 20 | | EXTERNAL | | | ine Ratio | | | LAB | | + + + + + + | Calcium | 8.3 (L) | 8.5 - 10.5 | EXTERNAL | | | | | mg/dL | LAB | | + + + + + + | Estimated | >60Comment: GFR <60: | mL/min/1.73m2 | EXTERNAL | | | GFR | CHRONIC KIDNEY DISEASE, | | LAB | | | | IF FOUND OVER [...] | | | | | performed at [facility], [address] | | | | | [address], | | | | | | [place] [address] | | | | + + + + + + + + | Specimen | + + | Blood specimen | | (specimen) | + + + +---------+ + + | Performing | Address | City/State/Zipcode | Phone Number | | Organization | | | | + +---------+ + + | EXTERNAL LAB | | | | + +---------+ + + External Lab: CBC (04/22/2018 4:38 AM PST) + + + + + + | Component | Value | Ref Range | Performed | Pathologist | | | | | At | Signature | + + + + + + | WBC | 26.51 (H) | 3.80 - 11.00 | EXTERNAL | | | | | K/uL | LAB | | + + + + + + | RED CELL | 4.57 | 4.20 - 5.70 | EXTERNAL | | | COUNT | | M/uL | LAB | | + + + + + + | Hgb | 13.1 (L) | 13.2 - 17.0 | EXTERNAL | | | | | g/dL | LAB | | + + + + + + | Hematocrit, | 40.7 | 39.0 - 50.0 % | EXTERNAL | | | POC | | | LAB | | + + + + + + | MCV | 89.2 | 80.0 - 100.0 fl | EXTERNAL | | | | | | LAB | | + + + + + + | MCH | 28.7 | 27.0 - 34.0 pg | EXTERNAL | | | | | | LAB | | + + + + + + | MCHC | 32.1 | 32.0 - 35.5 | EXTERNAL | | | | | g/dL | LAB | | + + + + + + | RDW-CV | 42.9 | 37 - 53 fl | EXTERNAL | | | | | | LAB | | + + + + + + | Platelet | 330 | 150 - 400 K/uL | EXTERNAL | | | Count | | | LAB | | | Plasma | | | | | + + + + + + | MPV | 7.7 | fl | EXTERNAL | | | | | | LAB | | + + + + + + | Differentia | MANUAL | | EXTERNAL | | | l Type | | | LAB | | + + + + + + | Segmented | 89 | % | EXTERNAL | | | Neutrophils | | | LAB | | | Manual | | | | | + + + + + + | % Bands | 8 | % | EXTERNAL | | | | | | LAB | | + + + + + + | Lymphocytes | 2 | % | EXTERNAL | | | Manual | | | LAB | | + + + + + + | Monocytes | 1 | % | EXTERNAL | | | Manual | | | LAB | | + + + + + + | Absolute | 23.59 (H) | 1.90 - 7.40 | EXTERNAL | | | Neutrophils | | K/uL | LAB | | + + + + + + | Bands | 2.12 (H) | 0.00 - 0.20 | EXTERNAL | | | Manual | | K/uL | LAB | | + + + + + + | Absolute | 0.53 (L) | 1.00 - 3.90 | EXTERNAL | | | Lymphocytes | | K/uL | LAB | | + + + + + + | Absolute | 0.27 | 0.00 - 0.80 | EXTERNAL | | | Monocytes | | K/uL | LAB | | + + + + + + | RBC | 1+Comment: ANISONORMAL | | EXTERNAL | | | Morphology | PLT MORPHTesting | | LAB | | | | performed at [facility], [address] | | | | | [address], | | | | | | [place] [address] | | | | | | | | | | + + + + + + + + | Specimen | + + | Blood specimen | | (specimen) | + + + +---------+ + + | Performing | Address | City/State/Zipcode | Phone Number | | Organization | | | | + +---------+ + + | EXTERNAL LAB | | | | + +---------+ + + Phosphorus (04/22/2018 4:38 AM PST) + + + + + + | Component | Value | Ref Range | Performed | Pathologist | | | | | At | Signature | + + + + + + | PHOSPHORUS | 2.8Comment: Testing | 2.3 - 4.8 mg/dL | EXTERNAL | | | | performed at [facility], [address] | | LAB | | | | [address], | | | | | | [place] [address] | | | | + + + + + + + + | Specimen | + + | Blood specimen | | (specimen) | + + + +---------+ + + | Performing | Address | City/State/Zipcode | Phone Number | | Organization | | | | + +---------+ + + | EXTERNAL LAB | | | | + +---------+ + + Magnesium (04/22/2018 4:38 AM PST) + + + + + + | Component | Value | Ref Range | Performed | Pathologist | | | | | At | Signature | + + + + + + | Magnesium | 2.1Comment: Testing | 1.7 - 2.4 mg/dL | EXTERNAL | | | | performed at [facility], [address] | | LAB | | | | [address], | | | | | | [place] [address] | | | | + + + + + + + + | Specimen | + + | Blood specimen | | (specimen) | + + + +---------+ + + | Performing | Address | City/State/Zipcode | Phone Number | | Organization | | | | + +---------+ + + | EXTERNAL LAB | | | | + +---------+ + + Basic Metabolic Panel (04/22/2018 4:38 AM PST) + + + + + + | Component | Value | Ref Range | Performed | Pathologist | | | | | At | Signature | + + + + + + | Na | 139 | 135 - 145 | EXTERNAL | | | | | mmol/L | LAB | | + + + + + + | K | 4.0 | 3.5 - 4.9 | EXTERNAL | | | | | mmol/L | LAB | | + + + + + + | Cl | 102 | 99 - 109 mmol/L | EXTERNAL | | | | | | LAB | | + + + + + + | CO2 | 28 | 23 - 32 mmol/L | EXTERNAL | | | | | | LAB | | + + + + + + | Anion Gap | 13 | 5 - 20 mmol/L | EXTERNAL | | | | | | LAB | | + + + + + + | Glucose, | 123 (H) | 65 - 99 mg/dL | EXTERNAL | | | Fasting | | | LAB | | + + + + + + | BUN | 18 | 8 - 25 mg/dL | EXTERNAL | | | | | | LAB | | + + + + + + | Creatinine | 0.9 | 0.70 - 1.30 | EXTERNAL | | | | | mg/dL | LAB | | + + + + + + | BUN/Creatin | 20 | | EXTERNAL | | | ine Ratio | | | LAB | | + + + + + + | Calcium | 8.4 (L) | 8.5 - 10.5 | EXTERNAL | | | | | mg/dL | LAB | | + + + + + + | Estimated | >60Comment: GFR <60: | mL/min/1.73m2 | EXTERNAL | | | GFR | CHRONIC KIDNEY DISEASE, | | LAB | | | | IF FOUND OVER [...] | | | | | performed at [facility], [address] | | | | | [facility], | | | | | | [place] [address] | | | | + + + + + + + + | Specimen | + + | Blood specimen | | (specimen) | + + + +---------+ + + | Performing | Address | City/State/Zipcode | Phone Number | | Organization | | | | + +---------+ + + | EXTERNAL LAB | | | | + +---------+ + + External Lab: CBC (04/21/2018 1:45 PM PST) + + + + + + | Component | Value | Ref Range | Performed | Pathologist | | | | | At | Signature | + + + + + + | WBC | 28.46 (H) | 3.80 - 11.00 | EXTERNAL | | | | | K/uL | LAB | | + + + + + + | RED CELL | 4.86 | 4.20 - 5.70 | EXTERNAL | | | COUNT | | M/uL | LAB | | + + + + + + | Hgb | 13.9 | 13.2 - 17.0 | EXTERNAL | | | | | g/dL | LAB | | + + + + + + | Hematocrit, | 43.9 | 39.0 - 50.0 % | EXTERNAL | | | POC | | | LAB | | + + + + + + | MCV | 90.4 | 80.0 - 100.0 fl | EXTERNAL | | | | | | LAB | | + + + + + + | MCH | 28.5 | 27.0 - 34.0 pg | EXTERNAL | | | | | | LAB | | + + + + + + | MCHC | 31.5 (L) | 32.0 - 35.5 | EXTERNAL | | | | | g/dL | LAB | | + + + + + + | RDW-CV | 43.3 | 37 - 53 fl | EXTERNAL | | | | | | LAB | | + + + + + + | Platelet | 357 | 150 - 400 K/uL | EXTERNAL | | | Count | | | LAB | | | Plasma | | | | | + + + + + + | MPV | 7.3 | fl | EXTERNAL | | | | | | LAB | | + + + + + + | Differentia | MANUAL | | EXTERNAL | | | l Type | | | LAB | | + + + + + + | Segmented | 65 | % | EXTERNAL | | | Neutrophils | | | LAB | | | Manual | | | | | + + + + + + | % Bands | 17 | % | EXTERNAL | | | | | | LAB | | + + + + + + | % | 1 | % | EXTERNAL | | | Myelocytes | | | LAB | | + + + + + + | Lymphocytes | 9 | % | EXTERNAL | | | Manual | | | LAB | | + + + + + + | Monocytes | 6 | % | EXTERNAL | | | Manual | | | LAB | | + + + + + + | Eosinophils | 2 | % | EXTERNAL | | | Manual | | | LAB | | + + + + + + | Absolute | 18.50 (H) | 1.90 - 7.40 | EXTERNAL | | | Neutrophils | | K/uL | LAB | | + + + + + + | Bands | 4.84 (H) | 0.00 - 0.20 | EXTERNAL | | | Manual | | K/uL | LAB | | + + + + + + | Absolute | 0.28 (H) | K/uL | EXTERNAL | | | Myelocytes | | | LAB | | + + + + + + | Absolute | 2.56 | 1.00 - 3.90 | EXTERNAL | | | Lymphocytes | | K/uL | LAB | | + + + + + + | Absolute | 1.71 (H) | 0.00 - 0.80 | EXTERNAL | | | Monocytes | | K/uL | LAB | | + + + + + + | Absolute | 0.57 (H) | 0.00 - 0.50 | EXTERNAL | | | Eosinophils | | K/uL | LAB | | + + + + + + | RBC | RBC AND PLT MORPHOLOGY | | EXTERNAL | | | Morphology | APPEAR NORMALComment: | | LAB | | | | Testing performed at | | | | | | [facility], [address] [facility] | | | | | | [place] | | | | | | [address] | | | | + + + + + + + + | Specimen | + + | Blood specimen | | (specimen) | + + + +---------+ + + | Performing | Address | City/State/Zipcode | Phone Number | | Organization | | | | + +---------+ + + | EXTERNAL LAB | | | | + +---------+ + + Potassium (04/21/2018 4:38 AM PST) + + + + + + | Component | Value | Ref Range | Performed | Pathologist | | | | | At | Signature | + + + + + + | K | 4.4Comment: Testing | 3.5 - 4.9 | EXTERNAL | | | | performed at [facility];[address] | mmol/L | LAB | | | | [address];[place], [place] | | | | | | [address] | | | | + + + + + + + + | Specimen | + + | Blood specimen | | (specimen) | + + + +---------+ + + | Performing | Address | City/State/Zipcode | Phone Number | | Organization | | | | + +---------+ + + | EXTERNAL LAB | | | | + +---------+ + + Phosphorus (04/21/2018 4:38 AM PST) + + + + + + | Component | Value | Ref Range | Performed | Pathologist | | | | | At | Signature | + + + + + + | PHOSPHORUS | 3.2Comment: Testing | 2.3 - 4.8 mg/dL | EXTERNAL | | | | performed at [facility];[address] | | LAB | | | | [address];[place] | | | | | | [address] | | | | + + + + + + + + | Specimen | + + | Blood specimen | | (specimen) | + + + +---------+ + + | Performing | Address | City/State/Zipcode | Phone Number | | Organization | | | | + +---------+ + + | EXTERNAL LAB | | | | + +---------+ + + Magnesium (04/21/2018 4:38 AM PST) + + + + + + | Component | Value | Ref Range | Performed | Pathologist | | | | | At | Signature | + + + + + + | Magnesium | 1.9Comment: Testing | 1.7 - 2.4 mg/dL | EXTERNAL | | | | performed at [facility];[address] | | LAB | | | | [address];[place], [place] | | | | | | [address] | | | | + + + + + + + + | Specimen | + + | Blood specimen | | (specimen) | + + + +---------+ + + | Performing | Address | City/State/Zipcode | Phone Number | | Organization | | | | + +---------+ + + | EXTERNAL LAB | | | | + +---------+ + + Basic Metabolic Panel (04/21/2018 4:38 AM PST) + + + + + + | Component | Value | Ref Range | Performed | Pathologist | | | | | At | Signature | + + + + + + | Na | 144 | 135 - 145 | EXTERNAL | | | | | mmol/L | LAB | | + + + + + + | K | 4.5 | 3.5 - 4.9 | EXTERNAL | | | | | mmol/L | LAB | | + + + + + + | Cl | 107 | 99 - 109 mmol/L | EXTERNAL | | | | | | LAB | | + + + + + + | CO2 | 26 | 23 - 32 mmol/L | EXTERNAL | | | | | | LAB | | + + + + + + | Anion Gap | 16 | 5 - 20 mmol/L | EXTERNAL | | | | | | LAB | | + + + + + + | Glucose, | 137 (H) | 65 - 99 mg/dL | EXTERNAL | | | Fasting | | | LAB | | + + + + + + | BUN | 14 | 8 - 25 mg/dL | EXTERNAL | | | | | | LAB | | + + + + + + | Creatinine | 0.80 | 0.70 - 1.30 | EXTERNAL | | | | | mg/dL | LAB | | + + + + + + | BUN/Creatin | 18 | | EXTERNAL | | | ine Ratio | | | LAB | | + + + + + + | Calcium | 8.3 (L) | 8.5 - 10.5 | EXTERNAL | | | | | mg/dL | LAB | | + + + + + + | Estimated | >60Comment: GFR <60: | mL/min/1.73m2 | EXTERNAL | | | GFR | CHRONIC KIDNEY DISEASE, | | LAB | | | | IF FOUND OVER [...] performed at [facility];[address] | | | | | | [facility];[place], [place] | | | | | | [address] | | | | + + + + + + + + | Specimen | + + | Blood specimen | | (specimen) | + + + +---------+ + + | Performing | Address | City/State/Zipcode | Phone Number | | Organization | | | | + +---------+ + + | EXTERNAL LAB | | | | + +---------+ + + NMO, Serum, IGG (04/20/2018 4:00 PM PST) + + | Specimen | + + | | + + + + + | Narrative | Performed At | + + + | NEURO OPTICA IGG CSF < 1:1 Aquaporin-4 | EXTERNAL LAB | | Receptor Antibody, IgG is not detected. No further testing will be | | | performed. INTERPRETIVE INFORMATION: Neuromyelitis Optica/AQP4-IgG, | | | CSF Rflx Diagnosis of neuromyelitis optica (NMO) requires the | | | presence of longitudinally extensive acute myelitis (lesions | | | extending over 3 or more vertebral segments) and optic neuritis. | | | Approximately 75 percent of patients with NMO express antibodies to | | | the aquaporin-4 (AQP4) receptor. While the absence of AQP4 receptor | | | antibodies does not rule out a diagnosis of NMO, presence of this | | | antibody is diagnostic for NMO. See Compliance Statement B: | | | [email or web address] Testing performed at [facility], [address] | | [address] [facility], [place] [address] | | + + + + +---------+ + + | Performing | Address | City/State/[facility] | Phone Number | | Organization | | | | + +---------+ + + | EXTERNAL LAB | | | | + +---------+ + + HISTORICAL MICROBIOLOGY RESULT (04/20/2018 4:00 PM PST) + + | Specimen | + + | Cerebrospinal fluid | | sample (specimen) | + + + + + | Narrative | Performed At | + + + | SOURCE CEREBROSPINAL FLUID | EXTERNAL LAB | | Testing performed at [facility];[address] [place] [address];[place] [address] HSV DNA | | | Type 1 Negative Reference range: | | | Negative HSV DNA Type 2 Negative | | | Reference range: Negative This test was developed and its performance | | | characteristics determined by [facility]. It has not been | | | cleared or approved by the U.S. Food and Drug Administration. The FDA | | | has determined that such clearance or approval is not necessary. | | | This test is used for clinical purposes. It should not be regarded as | | | investigational or research. Testing performed by [facility], [address] | | [place] [address] | | + + + + +---------+ + + | Performing | Address | City/State/Zipcode | Phone Number | | Organization | | | | + +---------+ + + | EXTERNAL LAB | | | | + +---------+ + + Immunoglobulin G Index Panel, CSF (04/20/2018 4:00 PM PST) + + | Specimen | + + | Cerebrospinal fluid | | sample (specimen) | + + + + + | Narrative | Performed At | + + + | IGG,CSF 5.6 | EXTERNAL LAB | | Reference range: 0.0 to 8.6 Testing performed by [address] | | | [place] [address] ALBUMIN,CSF | | | 34 Reference range: 11 to 48 Testing performed | | | by [facility] [address] [place] [address] IgG | | | 917 Reference range: 700 | | | to 1600 Testing performed at [facility], [facility] [address], [place] [address] | | | [place] [address] Albumin 3.8 | | | Reference range: 3.5 to 5.5 Unit: g/dL Testing performed at | | | [facility], [address], [place] [address], [facility] [address] CSF, IGG/ALB, | | | RATIO 0.16 Reference range: 0.00 to | | | 0.25 CSF/SERUM INDEX 0.7 | | | Reference range: 0.0 to 0.7 Testing performed by [address] | | | [place] [address] | | + + + + +---------+ + + | Performing | Address | City/State/Zipcode | Phone Number | | Organization | | | | + +---------+ + + | EXTERNAL LAB | | | | + +---------+ + + Culture, CSF, Smear (04/20/2018 4:00 PM PST) + + | Specimen | + + | Cerebrospinal fluid | | sample (specimen) | + + + + + | Narrative | Performed At | + + + | Specimen Description CEREBROSPINAL FLUID GRAM | EXTERNAL LAB | | STAIN 3+ | | | WBC'S SEEN | | | NO ORGANISMS SEEN CULTURE | | | NO GROWTH 4 DAYS | | + + + + +---------+ + + | Performing | Address | City/State/Zipcode | Phone Number | | Organization | | | | + +---------+ + + | EXTERNAL LAB | | | | + +---------+ + + MARCELL Prep (04/20/2018 4:00 PM PST) + + | Specimen | + + | Cerebrospinal fluid | | sample (specimen) | + + + + + | Narrative | Performed At | + + + | Specimen Description CEREBROSPINAL FLUID | EXTERNAL LAB | | CULTURE NO YEAST OR FUNGAL | | | ELEMENTS SEEN | | + + + + +---------+ + + | Performing | Address | City/State/Zipcode | Phone Number | | Organization | | | | + +---------+ + + | EXTERNAL LAB | | | | + +---------+ + + Cell Count with Differential, CSF (04/20/2018 4:00 PM PST) + + | Specimen | + + | Cerebrospinal fluid | | sample (specimen) | + + + + + | Narrative | Performed At | + + + | COLOR PINK | EXTERNAL LAB | | APPEARANCE HAZY Tube | | | Number, CSF 3 CSF RBC | | | [id number] High CSF WBC | | | 11 High NEUTROPHILS | | | 35 LYMPHOCYTES | | | 6 CELLS COUNTED | | | 41 Testing performed at [facility];[address] | | | [place] [address] | | + + + + +---------+ + + | Performing | Address | City/State/Zipcode | Phone Number | | Organization | | | | + +---------+ + + | EXTERNAL LAB | | | | + +---------+ + + VDRL, CSF (04/20/2018 4:00 PM PST) + + | Specimen | + + | Cerebrospinal fluid | | sample (specimen) | + + + + + | Narrative | Performed At | + + + | VDRL Quant, CSF Non Reactive Reference | EXTERNAL LAB | | range: Non Dina:<1:1 Testing performed by [facility], [address], | | | [place] [address] | | + + + + +---------+ + + | Performing | Address | City/State/Zipcode | Phone Number | | Organization | | | | + +---------+ + + | EXTERNAL LAB | | | | + +---------+ + + Protein, CSF (04/20/2018 4:00 PM PST) + + | Specimen | + + | Cerebrospinal fluid | | sample (specimen) | + + + + + | Narrative | Performed At | + + + | CSF TOTAL PROTEIN 55 High | EXTERNAL LAB | | Testing performed at [facility];[address] [facility];[place] [address] | | + + + + +---------+ + + | Performing | Address | City/State/Zipcode | Phone Number | | Organization | | | | + +---------+ + + | EXTERNAL LAB | | | | + +---------+ + + Myelin Ab, IgG (04/20/2018 4:00 PM PST) + + | Specimen | + + | Cerebrospinal fluid | | sample (specimen) | + + + + + | Narrative | Performed At | + + + | Myelin Basic Prot, CSF >167.0 High Reference | EXTERNAL LAB | | range: 0.0 to 1.2 Results verified by repeat testing Results | | | for this test are for research purposes only by the assay's | | | global regulatory lead. The performance characteristics of this product have | | | not been established. Results should not be used as a diagnostic | | | procedure without confirmation of the diagnosis by another medically | | | established diagnostic product or procedure. Testing performed by | | | [facility], [address] [facility] [address] | | + + + + +---------+ + + | Performing | Address | City/State/Zipcode | Phone Number | | Organization | | | | + +---------+ + + | EXTERNAL LAB | | | | + +---------+ + + Glucose, CSF (04/20/2018 4:00 PM PST) + + | Specimen | + + | Cerebrospinal fluid | | sample (specimen) | + + + + + | Narrative | Performed At | + + + | CSF GLUCOSE 108 High | EXTERNAL LAB | | Testing performed at [facility];[address];[place] [address] | | + + + + +---------+ + + | Performing | Address | City/State/Zipcode | Phone Number | | Organization | | | | + +---------+ + + | EXTERNAL LAB | | | | + +---------+ + + Angiotension Converting Enzyme CSF (04/20/2018 4:00 PM PST) + + | Specimen | + + | Cerebrospinal fluid | | sample (specimen) | + + + + + | Narrative | Performed At | + + + | [facility] CSF TEST NOT PERFORMED | EXTERNAL LAB | | TEST: [id number] JUAN, CSF Shared serum was thawed for other testing, and | | | could not be used. Lorin Bess notified testing not performed. | | | 04/28/2018 Testing performed at [facility], [address], | | | [place] [address] | | + + + + +---------+ + + | Performing | Address | City/State/Zipcode | Phone Number | | Organization | | | | + +---------+ + + | EXTERNAL LAB | | | | + +---------+ + + Oligoclonal Band Panel (04/20/2018 4:00 PM PST) + + + + + + | Component | Value | Ref Range | Performed | Pathologist | | | | | At | Signature | + + + + + + | IGG, CSF | 6.3Comment: Reference | mg/dL | EXTERNAL | | | | range: 0.0 to 8.6Testing | | LAB | | | | performed by [facility], | | | | | | [address], | | | | | | [facility] [address] | | | | + + + + + + | Albumin, | 31Comment: Reference | mg/dL | EXTERNAL | | | CSF | range: 11 to 48Testing | | LAB | | | | performed by [facility], | | | | | | [address], | | | | | | [facility] [address] | | | | + + + + + + | Immunoglobu | 819Comment: Reference | mg/dL | EXTERNAL | | | dragan IgG | range: 700 to | | LAB | | | | 1600Testing performed at | | | | | | [facility], [address], | | | | | | [address] | | | | | | [address] | | | | + + + + + + | Albumin | 3.2 (L)Comment: | g/dL | EXTERNAL | | | | Reference range: 3.5 to | | LAB | | | | 5.5Testing performed at | | | | | | [facility], [address], | | | | | | [address], [facility] | | | | | | [address] | | | | + + + + + + | CSF | 0.20Comment: Reference | | EXTERNAL | | | IgG/Albumin | range: 0.00 to 0.25 | | LAB | | | Ratio | | | | | + + + + + + | IgG Index | 0.8 (H)Comment: | | EXTERNAL | | | | Reference range: 0.0 to | | LAB | | | | 0.7 | | | | + + + + + + | IGG SYNTH | 11.0 (H)Comment: | mg/day | EXTERNAL | | | RATE | Reference range: NEG 9.9 | | LAB | | | | TO +3.3 | | | | + + + + + + | Albumin | 10 (H)Comment: Reference | | EXTERNAL | | | Index | range: 0 to 8 | | LAB | | | | Relationship to | | | | | | blood-brain barrier: | | | | | | Consistent with | | | | | | an intact barrier | | | | | | <9 | | | | | | Slight impairment | | | | | | 9 - | | | | | | 14 | | | | | | Moderate impairment | | | | | | 14 - | | | | | | 30 Severe | | | | | | impairment | | | | | | 30 - 100 | | | | | | Complete | | | | | | breakdown | | | | | | >100 | | | | + + + + + + | CSF | (See Below)Comment: | | EXTERNAL | | | Oligoclonal | Zero (0) oligoclonal | | LAB | | | Bands | bands were observed in | | | | | | the CSF. However four | | | | | | (4)paired bands were | | | | | | observed in both the CSF | | | | | | and serum. Paired | | | | | | bandssuggest an immune | | | | | | response to an | | | | | | inflammatory process | | | | | | outside theCNS and are | | | | | | unlikely to represent a | | | | | | ADMITTED ATTORNEYS demyelinating | | | | | | disease.Specimen was | | | | | | hemolyzed. Result may be | | | | | | adversely | | | | | | affected.Interpretation: | | | | | | Criteria for Positivity: | | | | | | Four (4) or more | | | | | | oligoclonal | | | | | | bandsobserved only in | | | | | | the CSF have been shown | | | | | | to be most consistent | | | | | | withMS using our | | | | | | method. [Madan , | | | | | | Sam ELMinoo | | | | | | BG, Donnell JA: | | | | | | Cerebrospinal Fluid | | | | | | Oligoclonal Bands in | | | | | | theDiagnosis of | | | | | | Multiple Sclerosis. Am J | | | | | | Clin Pathol | | | | | | [phone]].Dereje | | | | | | goclonal bands that are | | | | | | present only in the CSF | | | | | | have beenassociated with | | | | | | a variety of | | | | | | inflammatory brain | | | | | | diseases such asmultiple | | | | | | sclerosis (MS), | | | | | | subacute encephalitis, | | | | | | neurosyphilis,etc. | | | | | | Increased IgG in the | | | | | | CSF is not specific for | | | | | | MS, but is anindication | | | | | | of chronic neural | | | | | | inflammation. Clinical | | | | | | correlationindicated.Ksenia | | | | | | roximately 2-3% of | | | | | | clinically confirmed MS | | | | | | patients show littleor | | | | | | no evidence of | | | | | | oligoclonal bands in the | | | | | | CSF; howeveroligoclonal | | | | | | bands may develop as | | | | | | the disease | | | | | | progresses.Oligoclonal | | | | | | Banding testing | | | | | | performed using | | | | | | Isoelectric | | | | | | Focusing(IEF) and | | | | | | immunoblotting | | | | | | methodology.Testing | | | | | | performed by [facility], | | | | | | [address], | | | | | | [place] [address] | | | | + + + + + + + + | Specimen | + + | Blood specimen | | (specimen) | + + + +---------+ + + | Performing | Address | City/State/Zipcode | Phone Number | | Organization | | | | + +---------+ + + | EXTERNAL LAB | | | | + +---------+ + + West Nile Virus Ab, IgG, IgM, CSF (04/20/2018 4:00 PM PST) + + + + + + | Component | Value | Ref Range | Performed | Pathologist | | | | | At | Signature | + + + + + + | West Nile | NegativeComment: | | EXTERNAL | | | IgG, CSF | Reference range: | | LAB | | | | Negative No detectable | | | | | | West Nile Virus IgG | | | | | | Antibody. If a recent | | | | | | infection issuspected, | | | | | | another specimen should | | | | | | be submitted for testing | | | | | | within7-14 days. | | | | + + + + + + | West Nile | NegativeComment: | | EXTERNAL | | | IgM, CSF | Reference range: | | LAB | | | | Negative No detectable | | | | | | West Nile Virus IgM | | | | | | Antibody. If a recent | | | | | | infection issuspected, | | | | | | another specimen should | | | | | | be submitted for testing | | | | | | within7-14 days.Testing | | | | | | performed by [facility], | | | | | | [address], | | | | | | [facility] [address] | | | | + + + + + + + + | Specimen | + + | Cerebrospinal fluid | | sample (specimen) | + + + +---------+ + + | Performing | Address | City/State/Zipcode | Phone Number | | Organization | | | | + +---------+ + + | EXTERNAL LAB | | | | + +---------+ + + MRI Angiogram Spine w wo Contrast (04/20/2018 7:08 AM PST) + + | Specimen | + + | | + + + + + | Impressions | Performed At | + + + | 1. There is no enhancement of the cord to suggest active | | | demyelination. Additionally, no enhancement of the cord or | | | surrounding the cord likely excludes a dural AVF and/or AVM of the | | | cord as the etiology of hemorrhage. Differential considerations of | | | etiology of the hemorrhage within the cord remain unchanged and may | | | possibly include spontaneous hemorrhage versus pressure gradient | | | differences status post decompression versus underlying bleeding | | | diathesis. Signed by: Darryl Pat Date/Time: 04/20/2018 | | | 2:52 PM | | + + + + + + | Narrative | Performed At | + + + | MRI CERVICAL SPINE WITHOUT CONTRAST; MRI THORACIC SPINE WITHOUT | | | CONTRAST; MRI LUMBAR SPINE WITHOUT CONTRAST (CPT) MRI BONE SURVEY | | | WITHOUT CONTRAST CLINICAL INFORMATION: Headaches, paradoxical | | | intramedulary hemorrhage, Thin cuts to eval r/o AVM COMPARISON: | | | None PROCEDURE: Sagittal and coronal T1-weighted and STIR images | | | were performed of the spine, thorax, abdomen and pelvis. FINDINGS: | | | As noted on recent comparison MRI of the cervical spine, hyperintense | | | T2 signal is noted along the right paracentral region of the cord. | | | There is some T2 signal along the left paracentral region crossing the | | | midline as well but this is less conspicuous and localized only at | | | the level of surgery. There is relative sparing of the periphery of | | | the cervical cord. Following gadolinium administration, there is no | | | abnormal enhancing vessel around the cervical cord or within the | | | cord proper. Some enhancement is noted posteriorly in the | | | perivertebral soft tissues secondary to recent surgical change. No | | | epidural fluid collection is noted. | | + + + + + | Procedure Note | + + | Sebastian Jefferson Conversion - 10/11/2018 9:22 PM PDT MRI CERVICAL SPINE WITHOUT CONTRAST; | | MRI THORACIC SPINE WITHOUTCONTRAST; MRI LUMBAR SPINE WITHOUT CONTRAST (CPT)MRI BONE | | SURVEY WITHOUT CONTRASTCLINICAL INFORMATION:Headaches, paradoxical intramedulary | | hemorrhage, Thin cuts to eval r/oAVMCOMPARISON:NonePROCEDURE:Sagittal and coronal | | T1-weighted and STIR images were performed of thespine, thorax, abdomen and | | pelvis.FINDINGS:As noted on recent comparison MRI of the cervical spine, hyperintenseT2 | | signal is noted along the right paracentral region of the cord.There is some T2 signal | | along the left paracentral region crossing themidline as well but this is less | | conspicuous and localized only at thelevel of surgery. There is relative sparing of the | | periphery of thecervical cord.Following gadolinium administration, there is no abnormal | | enhancingvessel around the cervical cord or within the cord proper. Someenhancement is | | noted posteriorly in the perivertebral soft tissuessecondary to recent surgical change. | | No epidural fluid collection isnoted.IMPRESSION: 1. There is no enhancement of the | | cord to suggest active demyelination.Additionally, no enhancement of the cord or | | surrounding the cord likelyexcludes a dural AVF and/or AVM of the cord as the etiology | | ofhemorrhage. Differential considerations of etiology of the hemorrhagewithin the cord | | remain unchanged and may possibly include spontaneoushemorrhage versus pressure gradient | | differences status postdecompression versus underlying bleeding diathesis.Signed by: | | Emilee Pat Date/Time: 04/20/2018 2:52 PM | |vessel around the cervical cord or within the cord proper. Some | |enhancement is noted posteriorly in the perivertebral soft tissues | |secondary to recent surgical change. No epidural fluid collection is | |noted. | |IMPRESSION: | |1. There is no enhancement of the cord to suggest active demyelination. | |Additionally, no enhancement of the cord or surrounding the cord likely | |excludes a dural AVF and/or AVM of the cord as the etiology of | |hemorrhage. Differential considerations of etiology of the hemorrhage | |within the cord remain unchanged and may possibly include spontaneous | |hemorrhage versus pressure gradient differences status post | |decompression versus underlying bleeding diathesis. | |Signed by: Darryl Pat | |Sign Date/Time: 04/20/2018 2:52 PM | + + MRI Thoracic Spine w wo Contrast (04/20/2018 6:46 AM PST) + + | Specimen | + + | | + + + + + | Impressions | Performed At | + + + | 1. The previously visualized abnormal spinal cord edema in the | | | cervical spinal cord is seen extending in the thoracic spinal cord up | | | to the level of T4, below which the cord shows normal signal | | | intensity and caliber. This abnormal cord signal appears to be | | | slightly eccentric towards the right side and involves the central | | | cord. No abnormal enhancement noted. Signed by: MD Arin, Nubia | | | Sign Date/Time: 04/20/2018 7:02 AM | | + + + + + + | Narrative | Performed At | + + + | MRI THORACIC SPINE WITHOUT AND WITH CONTRAST CLINICAL INFORMATION: | | | Postoperatively, he developed weakness of the right arm, pain and | | | hyperthesia of left arm and from neck down to waist. COMPARISON: MRI | | | CERVICAL SPINE WO CONTRAST (04/19/2018); PROCEDURE: Sagittal T2, | | | axial T2, sagittal T1, axial T1, sagittal STIR, axial T1 enhanced, | | | and sagittal T1 enhanced sequences. Contrast: 8.5 GADAVIST IV. | | | FINDINGS: Alignment: Normal. Vertebrae and vertebral marrow signal: | | | Normal. Thoracic cord: The previously visualized abnormal spinal cord | | | edema in the cervical spinal cord is also seen in the thoracic | | | spinal cord, extending up to the level of T4, below which the cord | | | shows normal signal intensity and caliber. In the thoracic cord | | | this appears to be slightly eccentric towards the right side and | | | involves the central cord. There is no abnormal enhancement on the | | | postcontrast images. Thoracic disc levels: Thoracic intervertebral | | | disc heights and signals are preserved. No significant disc bulge | | | or herniation. No central canal or foraminal stenosis. Paraspinal | | | musculature and paravertebral soft tissues: Unremarkable. There is | | | mild bilateral dependent atelectasis in the lungs. | | + + + + + | Procedure Note | + + | Ronny, Rad Conversion - 10/11/2018 9:22 PM PDT MRI THORACIC SPINE WITHOUT AND WITH | | CONTRASTCLINICAL INFORMATION:Postoperatively, he developed weakness of the right arm, | | pain andhyperthesia of left arm and from neck down to waist.COMPARISON:MRI CERVICAL | | SPINE WO CONTRAST (04/19/2018);PROCEDURE:Sagittal T2, axial T2, sagittal T1, axial T1, | | sagittal STIR, axial [id number], and sagittal T1 enhanced sequences.Contrast: 8.5 | | GADAVIST IV.FINDINGS:Alignment: Normal.Vertebrae and vertebral marrow signal: | | Normal.Thoracic cord: The previously visualized abnormal spinal cord edema inthe | | cervical spinal cord is also seen in the thoracic spinal cord,extending up to the level | | of T4, below which the cord shows normalsignal intensity and caliber. In the thoracic | | cord this appears to beslightly eccentric towards the right side and involves the | | centralcord. There is no abnormal enhancement on the postcontrast images.Thoracic disc | | levels: Thoracic intervertebral disc heights and signalsare preserved. No significant | | disc bulge or herniation. No centralcanal or foraminal stenosis.Paraspinal musculature | | and paravertebral soft tissues: Unremarkable.There is mild bilateral dependent | | atelectasis in the lungs.IMPRESSION: 1. The previously visualized abnormal spinal cord | | edema in thecervical spinal cord is seen extending in the thoracic spinal cord upto the | | level of T4, below which the cord shows normal signal intensityand caliber. This | | abnormal cord signal appears to be slightlyeccentric towards the right side and involves | | the central cord. Noabnormal enhancement noted.Signed by: MD Hinkle SadafSign | | Date/Time: 04/20/2018 7:02 AM | |are preserved. No significant disc bulge or herniation. No central | |canal or foraminal stenosis. | |Paraspinal musculature and paravertebral soft tissues: Unremarkable. | |There is mild bilateral dependent atelectasis in the lungs. | |IMPRESSION: | |1. The previously visualized abnormal spinal cord edema in the | |cervical spinal cord is seen extending in the thoracic spinal cord up | |to the level of T4, below which the cord shows normal signal intensity | |and caliber. This abnormal cord signal appears to be slightly | |eccentric towards the right side and involves the central cord. No | |abnormal enhancement noted. | |Signed by: MD Hinkle Sadaf | |Sign Date/Time: 04/20/2018 7:02 AM | + + External Lab: CBC (04/20/2018 6:36 AM PST) + + + + + + | Component | Value | Ref Range | Performed | Pathologist | | | | | At | Signature | + + + + + + | WBC | 15.44 (H) | 3.80 - 11.00 | EXTERNAL | | | | | K/uL | LAB | | + + + + + + | RED CELL | 4.78 | 4.20 - 5.70 | EXTERNAL | | | COUNT | | M/uL | LAB | | + + + + + + | Hgb | 13.9 | 13.2 - 17.0 | EXTERNAL | | | | | g/dL | LAB | | + + + + + + | Hematocrit, | 41.9 | 39.0 - 50.0 % | EXTERNAL | | | POC | | | LAB | | + + + + + + | MCV | 87.7 | 80.0 - 100.0 fl | EXTERNAL | | | | | | LAB | | + + + + + + | MCH | 29.0 | 27.0 - 34.0 pg | EXTERNAL | | | | | | LAB | | + + + + + + | MCHC | 33.1 | 32.0 - 35.5 | EXTERNAL | | | | | g/dL | LAB | | + + + + + + | RDW-CV | 41.6 | 37 - 53 fl | EXTERNAL | | | | | | LAB | | + + + + + + | Platelet | 337 | 150 - 400 K/uL | EXTERNAL | | | Count | | | LAB | | | Plasma | | | | | + + + + + + | MPV | 6.7 | fl | EXTERNAL | | | | | | LAB | | + + + + + + | Differentia | MANUAL | | EXTERNAL | | | l Type | | | LAB | | + + + + + + | Segmented | 93 | % | EXTERNAL | | | Neutrophils | | | LAB | | | Manual | | | | | + + + + + + | Lymphocytes | 6 | % | EXTERNAL | | | Manual | | | LAB | | + + + + + + | Monocytes | 1 | % | EXTERNAL | | | Manual | | | LAB | | + + + + + + | Absolute | 14.36 (H) | 1.90 - 7.40 | EXTERNAL | | | Neutrophils | | K/uL | LAB | | + + + + + + | Absolute | 0.93 (L) | 1.00 - 3.90 | EXTERNAL | | | Lymphocytes | | K/uL | LAB | | + + + + + + | Absolute | 0.15 | 0.00 - 0.80 | EXTERNAL | | | Monocytes | | K/uL | LAB | | + + + + + + | Platelet | ADEQUATE | | EXTERNAL | | | Estimate | | | LAB | | + + + + + + | RBC | RBC AND PLT MORPHOLOGY | | EXTERNAL | | | Morphology | APPEAR NORMALComment: | | LAB | | | | Testing performed at | | | | | | [facility];[address] [place] [address] | | | | | | [facility];[place] [address] | | | | + + + + + + + + | Specimen | + + | Blood specimen | | (specimen) | + + + +---------+ + + | Performing | Address | City/State/Zipcode | Phone Number | | Organization | | | | + +---------+ + + | EXTERNAL LAB | | | | + +---------+ + + Basic Metabolic Panel (04/20/2018 6:36 AM PST) + + + + + + | Component | Value | Ref Range | Performed | Pathologist | | | | | At | Signature | + + + + + + | Na | 143 | 135 - 145 | EXTERNAL | | | | | mmol/L | LAB | | + + + + + + | K | 4.3 | 3.5 - 4.9 | EXTERNAL | | | | | mmol/L | LAB | | + + + + + + | Cl | 106 | 99 - 109 mmol/L | EXTERNAL | | | | | | LAB | | + + + + + + | CO2 | 23 | 23 - 32 mmol/L | EXTERNAL | | | | | | LAB | | + + + + + + | Anion Gap | 18 | 5 - 20 mmol/L | EXTERNAL | | | | | | LAB | | + + + + + + | Glucose, | 160 (H) | 65 - 99 mg/dL | EXTERNAL | | | Fasting | | | LAB | | + + + + + + | BUN | 15 | 8 - 25 mg/dL | EXTERNAL | | | | | | LAB | | + + + + + + | Creatinine | 0.97 | 0.70 - 1.30 | EXTERNAL | | | | | mg/dL | LAB | | + + + + + + | BUN/Creatin | 15 | | EXTERNAL | | | ine Ratio | | | LAB | | + + + + + + | Calcium | 8.7 | 8.5 - 10.5 | EXTERNAL | | | | | mg/dL | LAB | | + + + + + + | Estimated | >60Comment: GFR <60: | mL/min/1.73m2 | EXTERNAL | | | GFR | CHRONIC KIDNEY DISEASE, | | LAB | | | | IF FOUND OVER [...] performed at [facility] | | | | | | [facility];[place], [place] | | | | | | [address] | | | | + + + + + + + + | Specimen | + + | Blood specimen | | (specimen) | + + + +---------+ + + | Performing | Address | City/State/Zipcode | Phone Number | | Organization | | | | + +---------+ + + | EXTERNAL LAB | | | | + +---------+ + + MRI Brain w wo Contrast (04/20/2018 6:26 AM PST) + + | Specimen | + + | | + + + + + | Impressions | Performed At | + + + | 1. No acute infarction, acute intracranial hemorrhage, cerebral | | | edema pathological mass effect. 2. Small nonspecific 6 mm FLAIR | | | hyperintense focus in the right posterior pericallosal region is | | | stable compared to an MRI from 09/14/2016. Given the location this | | | may represent a small demyelinating focus however no other lesions | | | are visualized. Clinical correlation is recommended. Signed by: | | | MD Arin, Nubia Sign Date/Time: 04/20/2018 6:56 AM | | + + + + + + | Narrative | Performed At | + + + | MRI BRAIN WITHOUT AND WITH CONTRAST CLINICAL INFORMATION: | | | Postoperatively, he developed weakness of the right arm, pain and | | | hyperthesia of left arm and from neck down to waist. Postoperatively, | | | he developed weakness of the right arm, pain and hyperesthesia of | | | left arm and from neck down to waist. COMPARISON: MRI BRAIN WO | | | CONTRAST (09/14/2016); MRI CERVICAL SPINE WO CONTRAST (04/19/2018); | | | PROCEDURE: Sagittal T1, axial FLAIR, axial T2, axial T1, axial | | | gradient susceptibility, axial T1 enhanced, coronal T1 enhanced and | | | axial DWI. Contrast: 8.5 ml Gadavist IV. FINDINGS: Brain: No | | | intracranial hemorrhage. No midline shift, pathologic enhancement, or | | | mass lesion. No cerebral edema, restricted diffusion, or evidence | | | of acute infarct. There is a small FLAIR hyperintense focus in the | | | right posterior pericallosal region (series 7, image 13) that is | | | present on an MRI from 09/14/2016. It shows no abnormal enhancement | | | or restricted diffusion. See details of the cervical spine MRI for | | | findings in the visualized upper cervical spine. Ventricles and | | | extra-axial fluid spaces: Normal. Sella, suprasellar cistern, and | | | orbits: No sellar or suprasellar mass. Visualized orbits are | | | unremarkable. Major vascular flow voids: Normal. Calvarium and | | | extracranial soft tissues: Normal. Paranasal sinuses and mastoid air | | | cells: Minimal mucosal thickening in the right ethmoid sinuses. No | | | abnormal sinus fluid levels. No mastoid effusions. | | + + + + + | Procedure Note | + + | Ronny, Sebastian Conversion - 10/11/2018 9:22 PM PDT MRI BRAIN WITHOUT AND WITH CONTRAST | | CLINICAL INFORMATION: | | Postoperatively, he developed weakness of the right arm, pain and | | hyperthesia of left arm and from neck down to waist. | | Postoperatively, he developed weakness of the right arm, pain and | | hyperesthesia of left arm and from neck down to waist. | | COMPARISON: | | MRI BRAIN WO CONTRAST (09/14/2016); MRI CERVICAL SPINE WO CONTRAST | | (04/19/2018); | | PROCEDURE: | | Sagittal T1, axial FLAIR, axial T2, axial T1, axial gradient | | susceptibility, axial T1 enhanced, coronal T1 enhanced and axial DWI. | | Contrast: 8.5 ml Gadavist IV. | | FINDINGS: | | Brain: No intracranial hemorrhage. No midline shift, pathologic | | enhancement, or mass lesion. No cerebral edema, restricted diffusion, | | or evidence of acute infarct. There is a small FLAIR hyperintense focus | | in the right posterior pericallosal region (series 7, image 13) that is | | present on an MRI from 09/14/2016. It shows no abnormal enhancement or | | restricted diffusion. See details of the cervical spine MRI for | | findings in the visualized upper cervical spine. | | Ventricles and extra-axial fluid spaces: Normal. | | Sella, suprasellar cistern, and orbits: No sellar or suprasellar mass. | | Visualized orbits are unremarkable. | | Major vascular flow voids: Normal. | | Calvarium and extracranial soft tissues: Normal. | | Paranasal sinuses and mastoid air cells: Minimal mucosal thickening in | | the right ethmoid sinuses. No abnormal sinus fluid levels. No mastoid | | effusions. | | IMPRESSION: | | 1. No acute infarction, acute intracranial hemorrhage, cerebral edema | | pathological mass effect. | | 2. Small nonspecific 6 mm FLAIR hyperintense focus in the right | | posterior pericallosal region is stable compared to an MRI from | | 09/14/2016. Given the location this may represent a small demyelinating | | focus however no other lesions are visualized. Clinical correlation is | | recommended. | | Signed by: MD Arin, Nubia | | Sign Date/Time: 04/20/2018 6:56 AM | + + MRSA NAAT (04/19/2018 9:09 PM PST) + + | Specimen | + + | | + + + + + | Narrative | Performed At | + + + | SOURCE NARES(NOSE) MRSA | EXTERNAL LAB | | PCR NEGATIVE Testing | | | performed at [facility];[address] [facility];[place] [address] | | + + + + +---------+ + + | Performing | Address | City/State/Zipcode | Phone Number | | Organization | | | | + +---------+ + + | EXTERNAL LAB | | | | + +---------+ + + MRI Cervical Spine wo Contrast (04/19/2018 12:37 PM PST) + + | Specimen | + + | | + + + + + | Impressions | Performed At | + + + | 1. Postsurgical changes are noted with anterior cervical fusion from | | | C5 through C7 with decompression laminectomies posteriorly. 2. | | | There is newly developed T2 signal throughout the cervical cord with | | | fusiform swelling. There appears to be potential susceptibility | | | artifact along the paracentral region of the cord which could reflect | | | some hemorrhage. Differential considerations would include a cord | | | contusion versus possible ADEM in the appropriate clinical context. | | | Given that this does not occur along a typical vascular distribution, | | | cord infarct with subsequent hemorrhage is thought to be unlikely but | | | not excluded. This appears to extend into the thoracic cord and if | | | indicated, further assessment of the thoracic cord could be | | | performed with dedicated MRI. The edema is thought to be acute. 3. | | | There is potential impingement of the left C5 and C7 nerve root. 4. | | | Critical result: Imaging findings are discussed with the ordering | | | provider by telephone at 1:25 p.m.. 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 | | | FINDINGS: Alignment: Straightening of the normal cervical spine | | | lordosis is present, similar to the prior study. Susceptibility | | | artifact is present from C5 through C7 from anterior cervical disc | | | placement. Decompression laminectomies are noted along the levels of | | | fusion as well. Vertebrae and vertebral marrow signal: No | | | infiltrative process of the marrow is present. No bone marrow edema | | | is present. Cervicomedullary junction and cervical cord: There is | | | hyperintense T2 signal within the cervical cord extending from the | | | foramen magnum down into the thoracic cord on STIR imaging. There | | | appears to be fusiform swelling and enlargement of the cervical cord | | | at the level of C5-6 which is a new finding from prior study. On | | | gradient imaging, there is a suggestion of susceptibility artifact | | | along the right paracentral region of the cord on multiple images. | | | Cervical disc levels: C2-3: Mild spinal canal narrowing is present | | | from a disc osteophyte complex. There is mild bilateral neural | | | foraminal narrowing from uncovertebral arthropathy, unchanged. C3-4: | | | There is mild spinal stenosis from a disc osteophyte complex | | | contacting the anterior margin of the cord. There is mild left | | | neural foraminal stenosis from uncovertebral and facet arthropathy, | | | unchanged from previous study. C4-5: There is a disc osteophyte | | | complex contacting the anterior margin of the cord. There is severe | | | left and moderate right neural foraminal stenosis from a combination | | | of uncovertebral and facet arthropathy. There is potential | | | impingement of the left C5 nerve root. C5-6: No spinal stenosis is | | | present. A disc osteophyte complex appears improved from previous | | | exam. There is moderate bilateral neural foraminal narrowing from a | | | combination of uncovertebral and facet arthropathy which appears | | | improved in appearance from prior study. C6-7: There is mild spinal | | | stenosis from a disc osteophyte complex. The left neural foramen | | | appears severely stenotic with moderate narrowing on the right side, | | | unchanged. This may suggest impingement of the left C7 nerve root. | | | C7-T1: There is no spinal canal or neural foraminal stenosis. | | | Paraspinal musculature and paravertebral soft tissues: There is no | | | ventral epidural fluid collection. Prominent soft tissue swelling | | | and edema is noted posteriorly from recent surgery. A surgical | | | drain is noted along the operative bed. | | + + + + + | Procedure Note | + + | Ronny, Rad Conversion - 10/11/2018 9:22 PM PDT MRI CERVICAL SPINE WITHOUT CONTRAST | | CLINICAL INFORMATION: | | Post operative hemiplegia | | COMPARISON: | | MRI CERVICAL SPINE WO CONTRAST (09/14/2016); MRI CERVICAL SPINE WO | | CONTRAST (09/14/2016); | | PROCEDURE: | | Sagittal T2, axial T2, sagittal T1, axial T1, sagittal STIR. | | FINDINGS: | | Alignment: Straightening of the normal cervical spine lordosis is | | present, similar to the prior study. Susceptibility artifact is | | present from C5 through C7 from anterior cervical disc placement. | | Decompression laminectomies are noted along the levels of fusion as | | well. | | Vertebrae and vertebral marrow signal: No infiltrative process of the | | marrow is present. No bone marrow edema is present. | | Cervicomedullary junction and cervical cord: There is hyperintense T2 | | signal within the cervical cord extending from the foramen magnum down | | into the thoracic cord on STIR imaging. There appears to be fusiform | | swelling and enlargement of the cervical cord at the level of C5-6 | | which is a new finding from prior study. On gradient imaging, there is | | a suggestion of susceptibility artifact along the right paracentral | | region of the cord on multiple images. | | Cervical disc levels: | | C2-3: Mild spinal canal narrowing is present from a disc osteophyte | | complex. There is mild bilateral neural foraminal narrowing from | | uncovertebral arthropathy, unchanged. | | C3-4: There is mild spinal stenosis from a disc osteophyte complex | | contacting the anterior margin of the cord. There is mild left neural | | foraminal stenosis from uncovertebral and facet arthropathy, unchanged | | from previous study. | | C4-5: There is a disc osteophyte complex contacting the anterior margin | | of the cord. There is severe left and moderate right neural foraminal | | stenosis from a combination of uncovertebral and facet arthropathy. | | There is potential impingement of the left C5 nerve root. | | C5-6: No spinal stenosis is present. A disc osteophyte complex appears | | improved from previous exam. There is moderate bilateral neural | | foraminal narrowing from a combination of uncovertebral and facet | | arthropathy which appears improved in appearance from prior study. | | C6-7: There is mild spinal stenosis from a disc osteophyte complex. | | The left neural foramen appears severely stenotic with moderate | | narrowing on the right side, unchanged. This may suggest impingement | | of the left C7 nerve root. | | C7-T1: There is no spinal canal or neural foraminal stenosis. | | Paraspinal musculature and paravertebral soft tissues: There is no | | ventral epidural fluid collection. Prominent soft tissue swelling and | | edema is noted posteriorly from recent surgery. A surgical drain is | | noted along the operative bed. | | IMPRESSION: | | 1. Postsurgical changes are noted with anterior cervical fusion from C5 | | through C7 with decompression laminectomies posteriorly. | | 2. There is newly developed T2 signal throughout the cervical cord with | | fusiform swelling. There appears to be potential susceptibility | | artifact along the paracentral region of the cord which could reflect | | some hemorrhage. Differential considerations would include a cord | | contusion versus possible ADEM in the appropriate clinical context. | | Given that this does not occur along a typical vascular distribution, | | cord infarct with subsequent hemorrhage is thought to be unlikely but | | not excluded. This appears to extend into the thoracic cord and if | | indicated, further assessment of the thoracic cord could be performed | | with dedicated MRI. The edema is thought to be acute. | | 3. There is potential impingement of the left C5 and C7 nerve root. | | 4. Critical result: Imaging findings are discussed with the ordering | | provider by telephone at 1:25 p.m.. | | Signed by: Darryl Pat | | Sign Date/Time: 04/19/2018 1:30 PM | + + [place] C-Arm < 1 Hour (04/19/2018 9:36 AM PST) + + | Specimen | + + | | + + + + + | Impressions | Performed At | + + + | Intraoperative fluoroscopic assessment. Signed by: Jose C Russell | | | Sign Date/Time: 04/19/2018 2:42 PM | | + + + + + + | Narrative | Performed At | + + + | C-ARM <60 W/FLUORO CLINICAL INFORMATION: Posterior Foraminotomy | | | and laminectomy c5-7 FINDINGS: 2.3 seconds of fluoroscopy was | | | utilized by Dr. Douglas Logan during surgery. The images were | | | provided for interpretation after completion of the procedure. | | | Single lateral image demonstrates anterior fusion surgery changes | | | involving at least C5-C6. Total number of images: 1. | | + + + + + | Procedure Note | + + | Sebastian Jefferson Conversion - 10/11/2018 9:22 PM PDT C-ARM <60 W/FLUORO | | CLINICAL INFORMATION: | | Posterior Foraminotomy and laminectomy c5-7 | | FINDINGS: | | 2.3 seconds of fluoroscopy was utilized by Dr. Douglas Logan during | | surgery. The images were provided for interpretation after completion | | of the procedure. | | Single lateral image demonstrates anterior fusion surgery changes | | involving at least C5-C6. | | Total number of images: 1. | | IMPRESSION: | | Intraoperative fluoroscopic assessment. | | Signed by: Jose C Russell | | Sign Date/Time: 04/19/2018 2:42 PM | + + PTT (04/19/2018 7:38 AM PST) + + + + + + | Component | Value | Ref Range | Performed | Pathologist | | | | | At | Signature | + + + + + + | aPTT, | 27Comment: Testing | 23 - 32 seconds | EXTERNAL | | | Patient | performed at [facility];[id number] | | LAB | | | | [address];[place], [place] | | | | | | [address] | | | | + + + + + + + + | Specimen | + + | Blood specimen | | (specimen) | + + + +---------+ + + | Performing | Address | City/State/Zipcode | Phone Number | | Organization | | | | + +---------+ + + | EXTERNAL LAB | | | | + +---------+ + + Protime INR (04/19/2018 7:38 AM PST) + + + + + + | Component | Value | Ref Range | Performed | Pathologist | | | | | At | Signature | + + + + + + | INR | 1.0Comment: REFERENCE | | EXTERNAL | | | | RANGE:0.9 - 1.2 | | LAB | | | | NON-ANTICOAGULATED2.0 | | [...] performed at [facility] | | | | | | [facility];[place], [place] | | | | | | [address] | | | | + + + + + + + + | Specimen | + + | Blood specimen | | (specimen) | + + + +---------+ + + | Performing | Address | City/State/Zipcode | Phone Number | | Organization | | | | + +---------+ + + | EXTERNAL LAB | | | | + +---------+ + + External Lab: CBC (04/19/2018 7:38 AM PST) + + + + + + | Component | Value | Ref Range | Performed | Pathologist | | | | | At | Signature | + + + + + + | WBC | 7.19 | 3.80 - 11.00 | EXTERNAL | | | | | K/uL | LAB | | + + + + + + | RED CELL | 4.81 | 4.20 - 5.70 | EXTERNAL | | | COUNT | | M/uL | LAB | | + + + + + + | Hgb | 14.3 | 13.2 - 17.0 | EXTERNAL | | | | | g/dL | LAB | | + + + + + + | Hematocrit, | 42.5 | 39.0 - 50.0 % | EXTERNAL | | | POC | | | LAB | | + + + + + + | MCV | 88.5 | 80.0 - 100.0 fl | EXTERNAL | | | | | | LAB | | + + + + + + | MCH | 29.7 | 27.0 - 34.0 pg | EXTERNAL | | | | | | LAB | | + + + + + + | MCHC | 33.6 | 32.0 - 35.5 | EXTERNAL | | | | | g/dL | LAB | | + + + + + + | RDW-CV | 42.9 | 37 - 53 fl | EXTERNAL | | | | | | LAB | | + + + + + + | Platelet | 334 | 150 - 400 K/uL | EXTERNAL | | | Count | | | LAB | | | Plasma | | | | | + + + + + + | MPV | 6.9 | fl | EXTERNAL | | | | | | LAB | | + + + + + + | Differentia | AUTOMATED | | EXTERNAL | | | l Type | | | LAB | | + + + + + + | % Segmented | 68.28 | % | EXTERNAL | | | | | | LAB | | | Neutrophils | | | | | + + + + + + | % | 18.03 | % | EXTERNAL | | | Lymphocytes | | | LAB | | + + + + + + | % Monocytes | 8.81 | % | EXTERNAL | | | | | | LAB | | + + + + + + | % | 4.32 | % | EXTERNAL | | | Eosinophils | | | LAB | | + + + + + + | % Basophils | 0.56 | % | EXTERNAL | | | | | | LAB | | + + + + + + | Absolute | 4.91 | 1.90 - 7.40 | EXTERNAL | | | Segmented | | K/uL | LAB | | | Neutrophils | | | | | + + + + + + | Absolute | 1.30 | 1.00 - 3.90 | EXTERNAL | | | Lymphocytes | | K/uL | LAB | | + + + + + + | Absolute | 0.63 | 0.00 - 0.80 | EXTERNAL | | | Monocytes | | K/uL | LAB | | + + + + + + | Absolute | 0.31 | 0.00 - 0.50 | EXTERNAL | | | Eosinophils | | K/uL | LAB | | + + + + + + | Absolute | 0.04Comment: Testing | 0.00 - 0.10 | EXTERNAL | | | Basophils | performed at [facility];[address] | K/uL | LAB | | | | [address];[place], [place] | | | | | | [address] | | | | + + + + + + + + | Specimen | + + | Blood specimen | | (specimen) | + + + +---------+ + + | Performing | Address | City/State/Zipcode | Phone Number | | Organization | | | | + +---------+ + + | EXTERNAL LAB | | | | + +---------+ + + Basic Metabolic Panel (04/19/2018 7:38 AM PST) + + + + + + | Component | Value | Ref Range | Performed | Pathologist | | | | | At | Signature | + + + + + + | Na | 147 (H) | 135 - 145 | EXTERNAL | | | | | mmol/L | LAB | | + + + + + + | K | 3.9 | 3.5 - 4.9 | EXTERNAL | | | | | mmol/L | LAB | | + + + + + + | Cl | 109 | 99 - 109 mmol/L | EXTERNAL | | | | | | LAB | | + + + + + + | CO2 | 29 | 23 - 32 mmol/L | EXTERNAL | | | | | | LAB | | + + + + + + | Anion Gap | 13 | 5 - 20 mmol/L | EXTERNAL | | | | | | LAB | | + + + + + + | Glucose, | 80 | 65 - 99 mg/dL | EXTERNAL | | | Fasting | | | LAB | | + + + + + + | BUN | 9 | 8 - 25 mg/dL | EXTERNAL | | | | | | LAB | | + + + + + + | Creatinine | 1.02 | 0.70 - 1.30 | EXTERNAL | | | | | mg/dL | LAB | | + + + + + + | BUN/Creatin | 9 | | EXTERNAL | | | ine Ratio | | | LAB | | + + + + + + | Calcium | 8.9 | 8.5 - 10.5 | EXTERNAL | | | | | mg/dL | LAB | | + + + + + + | Estimated | >60Comment: GFR <60: | mL/min/1.73m2 | EXTERNAL | | | GFR | CHRONIC KIDNEY DISEASE, | | LAB | | | | IF FOUND OVER [...] [place];[address] | | | | | | [facility];[place], [place] | | | | | | [address] | | | | + + + + + + + + | Specimen | + + | Blood specimen | | (specimen) | + + + +---------+ + + | Performing | Address | City/State/Zipcode | Phone Number | | Organization | | | | + +---------+ + + | EXTERNAL LAB | | | | + +---------+ + + documented in this encounter Visit Diagnoses + + | Diagnosis | + + | Cervical radiculopathy at C6 Brachial neuritis or radiculitis nos | + + | Cervical radiculopathy at C7 Brachial neuritis or radiculitis nos | + + | Degeneration of intervertebral disc of cervical region | + + | Bilateral carpal tunnel syndrome Carpal tunnel syndrome | + + | Muscle weakness of upper extremity | + + | Infectious colitis Infectious colitis, enteritis, and gastroenteritis | + + | Cervical myelopathy (HCC) Cervical spondylosis with myelopathy | + + | S/P laminectomy Other postprocedural status | + + | Sepsis, due to unspecified organism | + + documented in this encounter
--- OUTSIDE RECORDS SUMMARY | ~2019-02-14 | XMS | Encounter Summary ---
Demographics + + + | Address | [address] [place] [address] | | | [place] [address] | + + + | Home Phone | | + + + | Preferred Language | Unknown | + + + | Marital Status | Unknown | + + + | Anabaptism Affiliation | Unknown | + + + | Race | Unknown | + + + | Ethnic Group | Unknown | + + + Author + + + | Author | [facility] | | | and [place] | + + + | Organization | [facility] | | | [...] Team Providers + +------+ + | Care Marketing Strategist Name | Role | Phone | + [...] | | | | [facility] REHAB[facility]ATION | [place] [address] | | | | | [address] [place] | [phone] | | | | | [place] | | | | | | [address] | | | | | | [phone] | | | +--------+ + + + [...]
--- OUTSIDE RECORDS SUMMARY | ~2019-02-14 | XMS | Encounter Summary ---
Demographics + + + | Address | [address] [place] [address] | | | [place] [address] | + + + | Home Phone | | + + + | Preferred Language | Unknown | + + + | Marital Status | Unknown | + + + | Alevism Affiliation | Unknown | + + + | Race | Unknown | + + + | Ethnic Group | Unknown | + + + Author + + + | Author | [facility] | | | and [place] | + + + | Organization | [facility] | | [...] Team Providers + +------+ + | Care Hoop Riveter Name | Role | Phone | + [...] | | | | AND REHABIL[facility]ATION | [place] [address] | | | | | [address] [place] | [phone] | | | | | [place] | | | | | | [address] | | | | | | [phone] | | | +--------+ + + + [...]
--- OUTSIDE RECORDS SUMMARY | ~2019-02-14 | XMS | Encounter Summary ---
Demographics + + + | Address | [address] [place] [address] | | | [place] [id number] | + + + | Home Phone | | + + + | Preferred Language | Unknown | + + + | Marital Status | Unknown | + + + | Spiritism Affiliation | Unknown | + + + [...] Team Providers + +------+ + | Care Head Turning Machine Operator Name | Role | Phone | + +------+ + PCP | Unavailable | + +------+ + Encounter Details +--------+ + + + + | Date | Type | Department | Care Team | Description | +--------+ + + + + | 11/27/ | Hospital | [facility] | Douglas Logan DO | Cervical spinal | | 2017 - | Encounter | [facility] [address] | [address] | stenosis; Cervical | | | | [address] | [address] | radiculopathy at C7; | | 11/29/ | | [place] | [place] [address] | Cervical | | 2017 | | [address] | [phone] | radiculopathy at C6; | | | | [phone] | | DDD (degenerative | | | | | | disc disease), | | | | | | cervical; Muscle | | | | | | weakness of upper | | | | | | extremity | +--------+ + + + + Social [...] + + + | Blood Pressure | 113/73 | 11/29/2016 12:22 PM | | | | | PDT | | + + + + + | Pulse | 64 | 11/29/2016 12:22 PM | | | | | PDT | | + + + + + | Temperature | 36.6 C (97.9 F) | 11/29/2016 12:22 PM | | | | | PDT | | + + + + + | Respiratory Rate | 18 | 11/29/2016 12:22 PM | | | | | PDT | | + + + + + | Oxygen Saturation | - | - | | + + + + + | Inhaled Oxygen | - | - | | | Concentration | | | | + + + + + | Weight | 87.2 kg (192 lb 3.8 | 11/29/2016 12:22 PM | | | | oz) | PDT | | + + + + + | Height | 180.3 cm (5' 11") | 11/29/2016 12:22 PM | | | | | PDT | | + + + + + | Body Mass Index | 26.81 | 11/29/2016 12:22 PM | | | | | PDT | | + + + + + documented in this encounter Discharge Summaries Douglas Logan DO - 11/29/2016 10:50 AM PDTFormatting of this note might be different fr om the original. Discharge Summaries by Douglas Logan DO at 11/29/16 105 Author: Douglas Logan DO Service: Neurosurgery Author Type: Physician Filed: 11/29/161051 Date of Service: 11/29/161049 Status: Signed Crime Analyst: Douglas Logan DO (Physician) Neurosurgery Discharge Summary [facility] Neurosurgery Provider: Douglas Logan DO Date : 11/29/2016 10:50 AM Referring Provider: Hospital Day: LOS: 0 days Date of Admission: 11/27/2016 Date of Discharge: 11/29/2016 Discharge Physician: Douglas Logan Treatment Team: Treatment Team: Admitting Provider: Dougals Logan DO Final / Discharge Diagnoses: Patient Active Problem List Diagnosis Bilateral carpal tunnel syndrome Cervical spinal stenosis Cervical radiculopathy at C7 Cervical radiculopathy at C6 DDD (degenerative disc disease), cervical Muscle weakness of upper extremity Active Problems: * No active hospital problems. * Resolved Problems: * No resolved hospital problems. * resolution of radiculopathy and muscle weakness Procedures: Procedure(s): CERVICAL - DISC & FUSION - ANTERIOR Past Medical History Diagnosis Date GERD (gastroesophageal reflux disease) History of stomach ulcers Seizures 2002 none since then Past Surgical History Procedure Laterality Date CERVICAL FUSION N/A 11/27/2016 Procedure: CERVICAL - DISC & FUSION - ANTERIOR; Surgeon: Douglas Logan DO; Location: [facility] MAIN OR; Service: Neurosurgery; Laterality: N/A; C5-7 LIPOMA RESECTION 2003 LIPOMA RESECTION 2012 WISDOM TOOTH EXTRACTION Prescriptions Prior to Admission Medication Sig Dispense Refill Last Dose gabapentin (NEURONTIN) 600 MG tablet Take 300 mg by mouth 3 (three) times daily. 11/26 at Unknown time omeprazole (PRILOSEC) 20 MG capsule Take 20 mg by mouth every morning before breakfast. 11/27/2016 at Unknown time traMADol (ULTRAM) 50 MG tablet Take 100 mg by mouth 3 (three) times daily. 11/26/2016 at Unknown time No Known Allergies Brief History of Presentation: Shane Lambert is a 41 y.o. male with severe cervical stenosis status post anterior cervical d iscectomy and fusion C5-C6 C6-7 with resolution of his radicular pain market improvement in symptoms with only routine postoperative surgical pain and trapezius muscle spasm. DISCHARGE EXAM BP 113/73 (BP Location: Right upper arm) | Pulse 64 | Temp 97.9 F (36.6 C) (Oral) | Resp 18 | Ht 1.803 m (5' 11") | Wt 87.2 kg (192 lb 3.9 oz) | SpO2 100% | BMI 26.81 kg/m PHYSICAL EXAM: General: Pleasant, awake, alert, and oriented. In no acute distress, well developed, well n ourished. Speech fluent and approriate Skin:Skin color, texture, turgor normal. No rashes or lesions. HEENT: Normocephalic atraumatic Muscle Strength: Right Left Upper Extremity: 5/5 Armored Service Technician +4/5 5/5 Armored Service Technician +4/5 Lower Extremity: 5/5 5/5 Wound:Clean, dry, and intact. No evidence of wound breakdown or infection Sensation:Normal reported sensation to light touch and pin prick Significant Diagnostic Studies: X-ray C-arm Fluoro Over 1 Hour Result Date: 11/27/2016 [facility]ANE [facility] XR C-ARM FLUORO OVER 1 HOUR 11/27/2016 4:06 PM HISTORY: 41 years. Male. Cervic al radiculopathy. Cervical spinal stenosis. TECHNIQUE: Imaging of the cervical obtained usi ng a C-arm device. RADIATION DOSE INDEX: Peak Skin Dose ? 4.16 mGy. COMPARISON: MRI cervical spine 09/14/2016. FINDINGS / IMPRESSION: 1. C5-C7 ACDF plating and screws and interbody spacers noted. Thes e are in satisfactory position on all 3 acquired views. No results for input(s): WBC, RBC, HGB, HCT, PLT, BANDSABS in the last 168 hours. No results for input(s): APTT, PROTIME, INR in the last 168 hours. Invalid input(s): FIBRINOGEN No results found for: TROPONINI No results for input(s): NA, K, CL, CO2, ANIONGAP, GLUF, BUN, CREATININE, BCR, CA, PHOS, M G in the last 168 hours. No results found for: COLORU, CLARITYU, MEROPENEM, LEUKOCYTESUR, NITRITE, UROBILINOGEN, UP RO, PHUR, BLOODU, KETONES, BILIRUBINUR, GLUCOSEU PLAN Return to group home at the [facility]. Patient should continue cervical collar at all times when out of bed ambulating and and to use as needed for comfort. Patient is okay to remove the brace if he is lying in bed sitting down or to take off if it becomes uncomfortable. P atient to follow up in neurosurgery clinic as scheduled in 2 weeks. Check him in 3 months w ith x-rays cervical spine AP and lateral confirmed fusion of the surgical construct. Shaw t made partake and light physical therapy as needed at the institution although would hold o n any aggressive physical therapy for at least a period of 2-3 months. Disposition: SENIOR LIVING Condition: Stable Code Status: Full Code No discharge procedures on file. Possible Follow Up Numbers: Per Pt None [facility] Medication List START taking these medications HYDROcodone-acetaminophen 5-325 MG per tablet QTY: 90 tablet Refills: 0 Commonly known as: NORCO Take 1 tablet by mouth every 4 (four) hours as needed for up to 30 days. methocarbamol 500 MG tablet QTY: 90 tablet Refills: 2 Commonly known as: ROBAXIN Take 1 tablet by mouth 3 (three) times daily for 30 days. CONTINUE taking these medications gabapentin 600 MG tablet Refills: 0 Commonly known as: NEURONTIN omeprazole 20 MG capsule Refills: 0 Commonly known as: PRILOSEC traMADol 50 MG tablet Refills: 0 Commonly known as: ULTRAM You might also be taking other medications not listed above. If you have questions about an y of your other medications, talk to the person who prescribed them or your Primary Care Pro vider. STOP taking these medications ibuprofen 200 MG tablet Commonly known as: ADVIL Where to Get Your Medications You can get these medications from any pharmacy Bring a paper prescription for each of these medications HYDROcodone-acetaminophen 5-325 MG per tablet methocarbamol 500 MG tablet Extensive discussion regarding general risks of opiates [...] any narcotic or sedating medication. Discharge took 20 minutes, to include final examination, discussion of admission, and prepa ration of prescriptions, instructions for on-going care, follow-up and documentation of disc harge summary. Douglas Logan D.O Board Certified Neurosurgeon [facility] Neuroscience [place] [facility] documented in this encounter Medications at Time [...] Progress Notes Conversion Transaction, Provider Unknown - 11/29/2016 12:25 PM PDTFormatting of this note m ight be different from the original. Nurse Progress Note by Elma Day RN at 11/29/161224 Author: Elma Day RN Service: (none) Author Type: Registered Nurse Filed: 11/29/167 Date of Service: 11/29/161224 Status: Signed Crime Analyst: Elma Day RN (Registered Nurse) Patient discharged to correctional facility with guards present and escorted by [facility] caren dunaway. Patient in shackles at time of DC. Medicated with PO pain meds prior to discharge. As pen collar on. Report called to RN at correctional facility. Medication scripts will be faxe d to facility after Dr. Logan signs them. Hard copy put in chart with DC instructions. Douglas Webb DO - 11/28/2016 11:00 AM PDT Progress Notes by Douglas Logan DO at 11/28/16 1100 Author: Douglas Logan DO Service: Neurosurgery Author Type: Physician Filed: 11/28/16 1108 Date of Service: 11/28/16 1100 Status: Signed Crime Analyst: Douglas Logan DO (Physician) Neurosurgery Inpatient Progress Note - Post OP Provider: Douglas Logan DO Date : 11/28/2016 11:05 AM Referring Provider: Code Status: Full Code Hospital Day: LOS: 0 days Patient ID: Shane Lambert is a 41 y.o. male Consulted with neurosurgery clinic for severe and significant neck pain was started December 2010. Patient states started on his left side l ater progress over last few years to his right side described as tingling burning shooting p ain which has progressed last few years to include numbness and weakness in the arms patient has changed his habits as he has had poor handwriting and difficulty playing the guitar whi ch used to be relatively talented with a now has more and more difficulty and has to adjust highly placed due to poor control of his hands. Patient also reports is increasingly droppin g objects and that he often Has pinkie underneath the cup to prevent it from falling out pa tient now wakes up almost every hour on the hour due to significant neck and trapezius muscl e pain is a pain goes from the head the shoulders to between the shoulder blades. Patient d escribes now to 50% of pain she has done the left C6 and C7 dermatomal region with 50% going on the right same dermatomal regions patient describes 75 for percent of his pain in the ne ck 25% into the arms and hands. Patient has not been offered a physical therapy or injections in the past and states the rst time he has been evaluated other than his prior evaluation with Dr. Nieves and an EMG wh ich showed severe cervical radiculopathy. Patient is rather concerned over the changes acti vities of daily living due to the progressive muscle loss and progressive numbness in the C6 and C7 dermatomal regions. Procedure(s) with comments: CERVICAL - DISC & FUSION - ANTERIOR (N/A) - C5-7 Hospital Course: 11/28/2016 11:05 AM - Reports marked improvement in UE strength and resolut ion in radicular pain. Minor difficulty with swallow. Walking to bathroom. Subjective Past Medical History Diagnosis Date GERD (gastroesophageal reflux disease) History of stomach ulcers Seizures (HCC) 2002 none since then Social History Social History Marital status: Unknown Spouse name: N/A Number of children: 1 Years of education: GED+ Occupational History Not on file. Social History Main Topics Smoking status: Former Smoker Quit date: 04/29/2001 Smokeless tobacco: Never Used Alcohol use No Drug use: Types: Marijuana Sexual activity: Not on file Other Topics Concern Not on file Social History Narrative No narrative on file Family History Problem Relation Age of Onset Other (see comments) Father Brain tumor Cancer Other Diabetes Other No Known Allergies Objective Vital Signs: Last: Last 24hrs Vitals: 11/28/16 0736 BP: 121/70 Pulse: 64 Resp: 18 Temp: 98 F (36.7 C) SpO2: 97% Temp: [97.8 F (36.6 C)-99.1 F (37.3 C)] 98 F (36.7 C) Heart Rate: [64-120] 64 Resp: [12-19] 18 BP: (109-132)/(58-76) 121/70 FiO2 : [27 %-97 %] 37 % Intake/Output Summary (Last 24 hours) at 11/28/16 1105 Last data filed at 11/28/16 1046 Gross per 24 hour Intake 1711.27 ml Output 1580 ml Net 131.27 ml 11/28 0700 - 11/28 1859 In: - Out: 500 [Urine:500] 11/26 1899 - 11/28 0659 In: 1711.3 [I.V.:1511.3] Out: 1080 [Urine:1050] Vent Settings Last 24hrs: FiO2 : [27 %-97 %] 37 % PHYSICAL EXAM: General: Pleasant, awake, alert, and oriented. In no acute distress, well developed, well n ourished. Speech fluent and approriate Skin:Skin color, texture, turgor normal. No rashes or lesions. HEENT: Normocephalic atraumatic Muscle Strength: Right Left Upper Extremity: 5/5 Armored Service Technician +4/5 5/5 Armored Service Technician +4/5 Lower Extremity: 5/5 5/5 Wound:Clean, dry, and intact. No evidence of wound breakdown or infection Sensation:Normal reported sensation to light touch and pin prick No results for input(s): WBC, RBC, HGB, HCT, PLT, BANDSABS in the last 168 hours. No results for input(s): APTT, PROTIME, INR in the last 168 hours. Invalid input(s): FIBRINOGEN No results for input(s): NA, K, CL, CO2, ANIONGAP, GLUF, BUN, CREATININE, BCR, CA, PHOS, M G in the last 168 hours. No results found for: COLORU, CLARITYU, MEROPENEM, LEUKOCYTESUR, NITRITE, UROBILINOGEN, UP RO, PHUR, BLOODU, KETONES, BILIRUBINUR, GLUCOSEU No results found for: TROPONINI Scheduled Medications: docusate sodium 100 mg Oral BID gabapentin 300 mg Oral TID methocarbamol 500 mg Oral TID pantoprazole 40 mg Oral QAM AC traMADol 100 mg Oral TID PRN Medications: acetaminophen OR acetaminophen, diazepam OR diazePAM, HYDROcodone-acetaminophen O R HYDROcodone-acetaminophen, morphine OR morphine OR morphine, ondansetron OR ondansetron, saline lock IV - when tolerating PO fluids AND sodium chloride (PF) Continuous Infusions Patient Active Problem List Diagnosis Date Noted Cervical spinal stenosis 11/04/2016 Cervical radiculopathy at C7 11/04/2016 Cervical radiculopathy at C6 11/04/2016 DDD (degenerative disc disease), cervical 11/04/2016 Muscle weakness of upper extremity 11/04/2016 Bilateral carpal tunnel syndrome 08/26/2016 Assessment/Plan Shane Lambert is a 41 y.o. male with status post Procedure(s): CERVICAL - DISC & FUSION - ANTERIOR C5-7 Plan : 1) Continue pain management 2) Cervical collar for comfort 3) PT/OT 4) Disposition to group home likely 24-48hrs It is a pleasure being involved in this patients care should any questions or concerns jeff e feel free to contact me at any time. Douglas Logan D.O Board Certified Neurosurgeon [facility] Neuro[facility] [place] Office onversion Transact ion, Provider Unknown - 11/28/2016 10:50 AM PDTFormatting of this note might be different fr om the original. Therapy Progress Note by Esthela Paulson PT at 11/28/16 1050 Author: Esthela Paulson PT Service: (none) Author Type: Physical Therapist Filed: 11/28/16 1050 Date of Service: 11/28/16 105 Status: Signed Crime Analyst: Esthela Paulson PT (Physical Therapist) 11/28/16 1004 PT Last Visit PT Received On 11/28/16 Requires PT Follow Up No PT Eval/Reassessment Date 11/28/16 Assistance Required Independent Home Environment Type of Home Other (Comment) (snf) Prior Function Level of [place] Independent with functional mobility;Independent with ADLs Falls in Past Year No Lives With Foster setting (snf, will stay in inf[facility]) RUE Assessment RUE Assessment WFL LUE Assessment LUE Assessment X (grossly 4 to 4+/5, but pt states this is better than CAT SCANNER OPERATOR.) RLE Assessment RLE Assessment WFL LLE Assessment LLE Assessment WFL Cognition Overall Cognitive Status WFL Orientation Level Oriented Sensation Light Touch Deficit apparent (L anterior upper arm) Perception Inattention/Neglect Appears intact Proprioception Proprioception No apparent deficit Vision-Basic Assessment Current Vision No visual deficits Safety Devices Safety Devices in Place (pt in 4-pt shackles & 2 guards present) Precautions Spinal Precautions Cervical;Cervical collar on when upright Plan Treatment/Interventions Discharge skilled PT services PT Frequency Evaluation only Recommendation Recommendations Prior Setting Equipment Recommended None PT Ready for Discharge Yes Recommendation Comments Pt is indep in mobility. Understands precautions and has no further skilled therapy needs. onver antonio Transaction, Provider Unknown - 11/28/2016 10:50 AM PDT Therapy Progress Note by Esthela Paulson PT at 11/28/16 1050 Author: Esthela Paulson PT Service: (none) Author Type: Physical Therapist Filed: 11/28/16 1050 Date of Service: 11/28/16 1050 Status: Signed Crime Analyst: Esthela Paulson PT (Physical Therapist) 11/28/16 1004 PT Last Visit PT Received On 11/28/16 Requires PT Follow Up No PT Eval/Reassessment Date 11/28/16 Assistance Required Independent Precautions Spinal Precautions Cervical;Cervical collar on when upright Other Comments Comments 41 y/o male admitted for C 5/6, 6/7 ACDF. Pt has Malone collar to wear when up. Pt demonstrates indep mobility. Ed pt on precautions, shoulder exercises to do to alleviate duy n and assist w/circulation/muscle tightness and precautions. Pt demonstrates safe mobility a nd verbalizes understanding of precautions and use of c-collar. Cognition Overall Cognitive Status WFL Orientation Level Oriented Bed Mobility Rolling Supervison;Verbal instruction Sidelying to Sit Verbal instruction;Supervision Sit to Sidelying Verbal instruction;Supervision Transfers Sit to/from Stand Independent Bed to/from Chair Independent Mobility Ambulation Assistance Independent Maximal Ambulation Distance (feet) 30 Total Ambulation Distance (feet) 60 Distance limited by? Therapist/staff discretion Pattern WFL Assistive Device None Stairs Assistance (ed on use of rail for balance, but no pulling) Balance Balance Yes Standardized Test Tinetti Performance Oriented Mobility Assessment Therapeutic Exercises Therapeutic Exercises (shldr shrugs/retraction) Activity Tolerance Activity Tolerance Patient tolerated treatment without report of fatigue Nurse Made Aware D/w Kelly RN, in-person Safety Devices Safety Devices in Place (pt in 4-pt shackles & 2 guards present) Plan Treatment/Interventions Discharge skilled PT services PT Frequency Evaluation only Recommendation Recommendations Prior Setting Equipment Recommended None PT Ready for Discharge Yes Recommendation Comments Pt is indep in mobility. Understands precautions and has no further skilled therapy needs. Low - 33480 Moderate - 64761 High - 96791 History no personal factors &/or comorbidities Examination 1-2 elements Clinical Presentation stable Clinical Decision Making Complexity: Low 90899 Moderate 50529 High 47444 onver antonio Escoto, Provider Unknown - 11/28/2016 9:20 AM PDT Case Management by PARDEEP Hurley at 11/28/16919 Author: PARDEEP Hurley Service: (none) Author Type: Auto Slip Cover Installer Filed: 11/28/16922 Date of Service: 11/28/16919 Status: Signed Crime Analyst: PARDEEP Hurley (Auto Slip Cover Installer) Pt is a resident of the [facility] and will return ther e upon discharge. CM faxed info to Nedra Sheridan who is the [place] [facility] coordinator. CM will coordinate pt's return upon discharge. 11/28/16917 Discharge Planning Evaluation Admitting Diagnosis Cervical Spinal Stenosis Readmission No Type of Residence ([facility]) Bathrooms on 1st Floor 1-Full Caregiver after Discharge Yes Relationship to Patient [facility] staff Mental Status Oriented Anticipated Discharge Plan Post Acute Care Needs None at this time Resources Financial concerns No Transportation issues No Patient/Family concerns No Prescription Plan Yes Anticipated Disposition Facility Type Other (Comment) ([facility]) Medicare Important Message (NAY) Not applicable Met with: Patient and discussed discharge planning, Pt is a 41 y.o., male Patient's PCP is: PER PT NONE Patient's insurance: [employer] Coverage concerns: None Medication coverage/concerns: None Community resources utilized / needed: None Assistance in transportation: Not needed. Identification of any specific education / training: None Barriers to Discharge / Alternative housing needed: None Anticipated DCP: [facility] onver antonio Transaction, Provider Unknown - 11/28/2016 5:04 AM PDT Nurse Progress Note by Chiqui Shaw RN at 11/28/16503 Author: Chiqui Shaw RN Service: (none) Author Type: Registered Nurse Filed: 11/28/16 0511 Date of Service: 11/28/16503 Status: Signed Crime Analyst: Chiqui Shaw RN (Registered Nurse) Pt s/p cervical radiculopathy 11/27, pain controled with [place] and Morphine. Tried weaning pt off oxygen, sating 90% room air, returned to 2 lpm NC 97%, VSS, hourly rounding otherwise uneventful. 11/28/2016 5:10 AM Chiqui Shaw RN elvin Colmenares [facility] - 11/27/2016 5:40 PM PDTFormatting of this note might be different from the or iginal. Progress Notes by Selvin Buenrostro RPH at 11/27/161739 Author: Selvin Buenrostro RPH Service: Pharmacy Author Type: Pharmacist Filed: 11/27/161739 Date of Service: 11/27/161739 Status: Signed Crime Analyst: Selvin Buenrostro RPH (Pharmacist) Renal Dosing Monitoring: Shane Lambert 41 y.o. male Pharmacy dosing for renal function per Dr. Logan Plan per protocol: No scr available at this time Pharmacy will continue monitoring patient for appropriate dosing per renal function. 11/27/2016 5:40 PM Pharmacist: SELVIN BUENROSTRO documente d in this encounter Plan of Treatment Not on filedocumented as of this encounter Procedures + +--------+ + + + | Procedure Name | Priori | Date/Time | Associated Diagnosis | Comments | | | ty | | | | + +--------+ + + + | FL C ARM > 1 HOUR | Routin | 11/27/2016 | | Results for this | | | e | 4:06 PM | | procedure are in the | | | | PDT | | results section. | + +--------+ + + + | TYPE AND SCREEN | Routin | 11/27/2016 | | Results for this | | | e | 12:44 PM | | procedure are in the | | | | PDT | | results section. | + +--------+ + + + | MRSA NAAT | STAT | 11/27/2016 | | Results for this | | | | 12:17 PM | | procedure are in the | | | | PDT | | results section. | + +--------+ + + + documented in this encounter Results FL C-Arm > 1 Hour (11/27/2016 4:06 PM PDT) + + | Specimen | + + | | + + + + + | Impressions | Performed At | + + + | FINDINGS / IMPRESSION: 1. C5-C7 ACDF plating and screws and | | | interbody spacers noted. These are in satisfactory position on all 3 | | | acquired views. Electronically signed by Otis Hinton DO on | | | 11/27/2016 4:08 PM | | + + + + + + | Narrative | Performed At | + + + | [facility] C-ARM FLUORO OVER 1 HOUR 11/27/2016 4:06 PM | | | HISTORY: 41 years. Male. Cervical radiculopathy. Cervical | | | spinal stenosis. TECHNIQUE: Imaging of the cervical obtained | | | using a C-arm device. RADIATION DOSE INDEX: Peak Skin Dose ? 4.16 | | | mGy. COMPARISON: MRI cervical spine 09/14/2016. | | + + + + + | Procedure Note | + + | Sebastian Jefferson - 10/13/2018 8:18 AM PDT [facility] C-ARM FLUORO OVER 1 | | HOUR11/27/2016 4:06 PM HISTORY:41 years. Male. Cervical radiculopathy. Cervical spinal | | stenosis. TECHNIQUE:Imaging of the cervical obtained using a C-arm device. RADIATION | | DOSE INDEX:Peak Skin Dose ? 4.16 mGy. COMPARISON:MRI cervical spine 09/14/2016. | | IMPRESSION: FINDINGS / IMPRESSION:1. C5-C7 ACDF plating and screws and interbody | | spacers noted. These are in satisfactory position on all 3 acquired views. | | | |TECHNIQUE: | |Imaging of the cervical obtained using a C-arm device. | | | |RADIATION DOSE INDEX: | |Peak Skin Dose ? 4.16 mGy. | | | |COMPARISON: | |MRI cervical spine 09/14/2016. | | | |IMPRESSION: | |FINDINGS / IMPRESSION: | |1. C5-C7 ACDF plating and screws and interbody spacers noted. These are in satisfactory p osition on all 3 acquired views. | | | | | + + Type and Screen (11/27/2016 12:44 PM PDT) + + + + + + | Component | Value | Ref Range | Performed | Pathologist | | | | | At | Signature | + + + + + + | ABO Rh | A POSITIVE | | EXTERNAL | | | | | | LAB | | + + + + + + | Antibody | NEGATIVE | | EXTERNAL | | | Screen | | | LAB | | + + + + + + | BB BAND | [id number] | | EXTERNAL | | | | performed at [facility];[address] | | LAB | | | | [address];[place] | | | | | | [address] | | | | + + + + + + + + | Specimen | + + | Blood specimen | | (specimen) | + + + +---------+ + + | Performing | Address | City/State/Zipcode | Phone Number | | Organization | | | | + +---------+ + + | EXTERNAL LAB | | | | + +---------+ + + MRSA NAAT (11/27/2016 12:17 PM PDT) + + | Specimen | + + | | + + + + + | Narrative | Performed At | + + + | SOURCE NARES(NOSE) MRSA | EXTERNAL LAB | | PCR NEGATIVE Testing | | | performed at [facility];[address] [facility];[place] [address] | | + + + + +---------+ + + | Performing | Address | City/State/Zipcode | Phone Number | | Organization | | | | + +---------+ + + | EXTERNAL LAB | | | | + +---------+ + + documented in this encounter Visit Diagnoses + + | Diagnosis | + + | Cervical spinal stenosis Spinal stenosis in cervical region | + + | Cervical radiculopathy at C7 Brachial neuritis or radiculitis nos | + + | Cervical radiculopathy at C6 Brachial neuritis or radiculitis nos | + + | DDD (degenerative disc disease), cervical Degeneration of cervical intervertebral | | disc | + + | Muscle weakness of upper extremity | + + documented in this encounter
--- OUTSIDE RECORDS SUMMARY | ~2019-02-14 | XMS | Encounter Summary ---
Demographics + + + | Address | [address] [place] [address] | | | [place] [address] | + + + | Home Phone | | + + + | Preferred Language | Unknown | + + + | Marital Status | Unknown | + + + | Adventism Affiliation | Unknown | + + + [...] Team Providers + +------+ + | Care United States Marshal Name | Role | Phone | + +------+ + | No, Physician | PCP | Unavailable | + +------+ + Encounter Details +--------+ + + + + | Date | Type | Department | Care Team | Description | +--------+ + + + + | 03/18/ | Orders Only | [facility] | Conversion | | | 2019 | | CONVERSION DEP [address] | Transaction, | | | | | [address] | Provider Unknown | | | | | [place] | | | | | | [address] | (Fax) | | | | | [phone] | | | +--------+ + + + [...]
--- OUTSIDE RECORDS SUMMARY | ~2019-02-14 | XMS | Encounter Summary ---
Demographics + + + | Address | [address] [place] [address] | | | [place] [address] | + + + | Home Phone | | + + + | Preferred Language | Unknown | + + + | Marital Status | Unknown | + + + | Buddhist Affiliation | Unknown | + + + | Race | Unknown | + + + | Ethnic Group | Unknown | + + + Author + + + | Author | [facility] | | | and [place] | + + + | Organization | [facility] | | | and [...] Team Providers + +------+ + | Care Grinder Set Up Operator Thread Tool Name | Role | Phone | + [...] | | | | [address] | [place] [address] | | | | | [place], [place] | [phone] | | | | | [address] | | | | | | [phone] | | | +--------+ + + + [...]
--- OUTSIDE RECORDS SUMMARY | ~2019-02-14 | XMS | Encounter Summary ---
Demographics + + + | Address | [address] [place] [address] | | | [place] [address] | + + + | Home Phone [...] + + + | Author | [facility] | | | and [place] | + + + | Organization | [facility] | | [...] Team Providers + +------+ + | Care Braider Operator Name | Role | Phone | + +------+ + | No, Physician | PCP | Unavailable | + +------+ + Reason for Referral Diagnostic/Screening (Routine) +--------+--------+ + + + + | Status | Reason | Specialty | Diagnoses / | Referred By | Referred To | | | | | Procedures | Contact | Contact | +--------+--------+ + + + + | Closed | | Radiology | Diagnoses | Malik, | [facility] | | | | | Weakness | Tawana Bess, | REGIONAL | | | | | Muscle | DOMESTIC HOUSEKEEPER [address] | MEDICAL | | | | | weakness | [facility] [address] | | | | | (generalized | [place], | [address] | | | | | ) Acquired | [place] | [place]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 | [address] | [address] | | | | | (HCC) | Phone: | Phone: | | | | | Procedures | [phone] | [phone] | | | | | CT | Fax: | Fax: | | | | | Myelography | [phone] | [phone] | | | | | Cervical | | | | | | | Spine | | | +--------+--------+ + + + + Reason for Visit Diagnostic/Screening (Routine) +--------+--------+ + + + + | Status | Reason | Specialty | Diagnoses / | Referred By | Referred To | | | | | Procedures | Contact | Contact | +--------+--------+ + + + + | Closed | | Radiology | Diagnoses | Malik, | [facility] | | | | | Weakness | Tawana Bess, | REGIONAL | | | | | Muscle | DOMESTIC HOUSEKEEPER [address] | MEDICAL | | | | | weakness | [facility] [address] | | | | | (generalized | [place], | [address] | | | | | ) Acquired | [place] | [place]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 | [address] | [address] | | | | | ([facility]) | Phone: | Phone: | | | | | Procedures | [phone] | [phone] | | | | | CT | Fax: | Fax: | | | | | Myelography | [phone] | [phone] | | | | | Cervical | | | | | | | Spine | | | +--------+--------+ + + + + Encounter Details +--------+ + + + + | Date | Type | Department | Care Team | Description | +--------+ + + + + | 02/01/ | Hospital | [facility] | Tawana Gan, | Weakness; Muscle | | 2019 | Encounter | [facility] CT | DOMESTIC HOUSEKEEPER [address] | weakness | | | | [address] | [place] | (generalized); | | | | [place] | [address] | Acquired diplegia | | | | [address] | [phone] | ([facility]) | | | | [phone] | | | +--------+ + + + [...] + + documented as of this encounter Medications at Time of Discharge [...] | | + +--------+ + + + documented in this encounter Results CT Myelography Cervical Spine (02/01/2019 1:56 [...] stenosis. | | | Signed by: Pineda Ruiz, Matt Sign Date/Time: | | | 02/01/2019 4:50 [...] and posterior decompressive | | | laminectomies. Hjod-gq-izcrifzd bilateral neural foraminal | | | narrowing. No central canal stenosis. C6-C7: Postsurgical change | | | with anterior fusion and posterior decompressive laminectomy. | | | Oewr-wf-fxlobztz bilateral neural foraminal narrowing. No central | [...] fusion and posterior | | decompressive laminectomies. Bxlq-aa-iudoghgy bilateral neural | | foraminal narrowing. No central canal stenosis. | | | | C6-C7: Postsurgical change with anterior fusion and posterior | | decompressive laminectomy. Iwub-nn-dtkgrgjr bilateral neural foraminal | | narrowing. No [...] limbs | + + documented in this encounter"
--- OUTSIDE RECORDS SUMMARY | ~2019-02-14 | XMS | Encounter Summary ---
Demographics + + + | Address | [address] [place] [address] | | | [place] [address] | + + + | Home Phone | | + + + | Preferred Language | Unknown | + + + | Marital Status | Unknown | + + + | Gnosticist Affiliation | Unknown | + + + [...] Team Providers + +------+ + | Care Appeals Referee Name | Role | Phone | + [...] + + | 10/17/ | Hospital | [facility] | Samy Cardenas, | Status post [facility] | | 2019 - | Encounter | CENTER SURGICAL [address] | MD [address] | procedure (HCC) | | | | [address] | [address] | | | 10/19/ | | [place], [place] | [place] [address] | | | 2019 | | [address] | [phone] | | | | | [phone] | | | +--------+ + + + [...] Physician Discharge Summary Patient ID: Matthias Lambert [id number] 43 y.o. 1975 Admit date: 10/17/2018 Discharge [...] dry. No rash noted, not diaphoretic. Disposition: Long Term Patient Instructions: Discharge Medications New Medications Details [...] swollen skin; skin rash Date Last Reviewed: 08/30/201519997399-4101 [employer]. [address] [place] [address]. All righ ts reserved. This information is [...] and e nergy drinks Date Last Reviewed: 07/30/201619997186-1972 [employer]. [address] [place] [address]. All righ ts reserved. This information is [...] Lambert 43 y.o. 1975 Med. Record Number: [id number] Date of admission: 10/17/2018 Service(s): Colorectal Surgery [...] RICK | | | | performed at [facility], [address] | | LABORATORY | | | | [address], | | | | | | [place] [address] | | | | + + + + + + + + | Specimen | + + | Blood | + + + + + + + | Performing | Address | City/State/Zipcode | Phone Number | | Organization | | | | + + + + + | [facility] | [address] | [place] [address] | [phone] | + + + + + Basic [...] | | | | | performed at [facility], [address] | | | | | | [place], | | | | | | [place] [address] | | | | + + + + + + + + | Specimen | + + | Blood | + + + + + + + | Performing | Address | City/State/Zipcode | Phone Number | | Organization | | | | + + + + + | [facility] | [address] | [place] [address] | [phone] | + + + + + Type [...] + + + | BB BAND | [id number] | | [facility] | | | | | | LABORATORY | | + + + + + + | BB BAND | Testing performed at | | [facility] | | | | [facility];[address] | | LABORATORY | | | | [address];[place] [address] | | | | + + + + + + + + | Specimen | + + | Blood - Right upper | | arm structure (body | | structure) | + + + + + + + | Performing | Address | City/State/Zipcode | Phone Number | | Organization | | | | + + + + + | [facility] | [address] | [place] [address] | [phone] | + + + + + documented [...] | | | | | | longer, zwtakn-ttf-vjakv use of | | | | | [...] | | | | | | | xdmduq-wqg-enkpr use of at least | | | [...]
--- OUTSIDE RECORDS SUMMARY | ~2019-02-14 | XMS | Encounter Summary ---
Demographics + + + | Address | [address] [place] [address] | | | [place] [address] | + + + | Home Phone | | + + + | Preferred Language | Unknown | + + + | Marital Status | Unknown | + + + | Baptist Affiliation | Unknown | + + + | Race | Unknown | + + + | Ethnic Group | Unknown | + + + Author + + + | Author | [facility] | | | and [place] | + + + | Organization | [facility] | | | [...] Team Providers + +------+ + | Care Siebel Crm Developer Name | Role | Phone | + [...] Provider Unknown | | | | | [place] | | | | | | [address] | (Fax) | | | | | [phone] | | | +--------+ + + + [...]
--- OUTSIDE RECORDS SUMMARY | ~2019-02-14 | XMS | Encounter Summary ---
Demographics + + + | Address | [address] [place] [address] | | | [place] [address] | + + + | Home Phone | | + + + | Preferred Language | Unknown | + + + | Marital Status | Unknown | + + + | Anglican Affiliation | Unknown | + + + | Race | Unknown | + + + | Ethnic Group | Unknown | + + + Author + + + | Author | [facility] | | | and [place] | + + + | Organization | [facility] | | | [...] Team Providers + +------+ + | Care Tiller Man Name | Role | Phone | [...] + + | 10/17/ | Hospital | [facility] | Samy Cardenas, | Status post [facility] | | 2019 - | Encounter | CENTER SURGICAL [address] | MD [address] | procedure (HCC) | | | | [address] | [address] | | | 10/19/ | | [place], [place] | [place] [address] | | | 2019 | | [address] | [phone] | | | | | [phone] | | | +--------+ + + + [...] Physician Discharge Summary Patient ID: Matthias Lambert [id number] 43 y.o. 1975 Admit date: 10/17/2018 Discharge [...] dry. No rash noted, not diaphoretic. Disposition: Alf Patient Instructions: Discharge Medications New Medications Details [...] swollen skin; skin rash Date Last Reviewed: 08/30/201519995340-2803 [employer]. [address] [place] [address]. All righ ts reserved. This information is [...] and e nergy drinks Date Last Reviewed: 07/30/201619990255-0058 [employer]. [address] [place] [address]. All righ ts reserved. This information is [...] Lambert 43 y.o. 1975 Med. Record Number: [id number] Date of admission: 10/17/2018 Service(s): Colorectal Surgery [...] RICK | | | | performed at [facility], [address] | | LABORATORY | | | | [address], | | | | | | [place] [address] | | | | + + + + + + + + | Specimen | + + | Blood | + + + + + + + | Performing | Address | City/State/Zipcode | Phone Number | | Organization | | | | + + + + + | [facility] | [address] | [place] [address] | [phone] | + + + + + Basic [...] | | | | | performed at [facility], [address] | | | | | | [place]ie Andre[place], | | | | | | [place] [address] | | | | + + + + + + + + | Specimen | + + | Blood | + + + + + + + | Performing | Address | City/State/Zipcode | Phone Number | | Organization | | | | + + + + + | [facility] | [address] | [place] [address] | [phone] | + + + + + Type [...] + + + | BB BAND | [id number] | | [facility] | | | | | | LABORATORY | | + + + + + + | BB BAND | Testing performed at | | [facility] | | | | [facility] | | LABORATORY | | | | [address];[place] [address] | | | | + + + + + + + + | Specimen | + + | Blood - Right upper | | arm structure (body | | structure) | + + + + + + + | Performing | Address | City/State/Zipcode | Phone Number | | Organization | | | | + + + + + | [facility] | [address] | [place] [address] | [phone] | + + + + + documented [...] | | | | | | longer, scqqdf-ztb-bpmws use of | | | | | [...] | | | | | | | squctf-zxf-ixcsd use of at least | | | [...]
--- OUTSIDE RECORDS SUMMARY | ~2019-02-14 | XMS | Encounter Summary ---
Demographics + + + | Address | [address] [place] [address] | | | [place] [address] | + + + | Home Phone | | + + + | Preferred Language | Unknown | + + + | Marital Status | Unknown | + + + | Scientologist Affiliation | Unknown | + + + | Race | Unknown | + + + | Ethnic Group | Unknown | + + + Author + + + | Author | [facility] | | | and [place] | + + + | Organization | [facility] | | [...] Team Providers + +------+ + | Care Cigarette Machines Mechanic Name | Role | Phone | + [...] | | | | | Muscle | [address] | MEDICAL | | | | | weakness | [facility] [address] | | | | | (generalized | [place], | [address] | | | | | ) Acquired | [place] | [place]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 | [address] | [address] | | | | | (HCC) | Phone: | Phone: | | | | | Procedures | [phone] | [phone] | | | | | CT | Fax: | Fax: | | | | | Myelography | [phone] | [phone] | | | | | Cervical | [...] | | | | | Muscle | [address] | MEDICAL | | | | | weakness | [facility] [address] | | | | | (generalized | [place], | [address] | | | | | ) Acquired | [place] | [place]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 | [address] | [address] | | | | | ([facility]) | Phone: | Phone: | | | | | Procedures | [phone] | [phone] | | | | | CT | Fax: | Fax: | | | | | Myelography | [phone] | [phone] | | | | | Cervical | | | | | | | Spine | | | +--------+--------+ + + + + Encounter Details +--------+ + + + + | Date | Type | Department | Care Team | Description | +--------+ + + + + | 02/01/ | Hospital | [facility] | Tawana Gan, | Weakness; Muscle | | 2019 | Encounter | [facility] [address] | [address] [place] | weakness | | | | [address] | [place] | (generalized); | | | | [place] | [address] | Acquired diplegia | | | | [address] | [phone] | ([facility]) | | | | [phone] | | | +--------+ + + + [...] and posterior decompressive | | | laminectomies. Jqhc-vl-xapccpmd bilateral neural foraminal | | | narrowing. No central canal stenosis. C6-C7: Postsurgical change | | | with anterior fusion and posterior decompressive laminectomy. | | | Pjfk-na-gphvxzgm bilateral neural foraminal narrowing. No central | [...] fusion and posterior | | decompressive laminectomies. Foix-kj-tboqinnq bilateral neural | | foraminal narrowing. No central canal stenosis. | | | | C6-C7: Postsurgical change with anterior fusion and posterior | | decompressive laminectomy. Qruh-mi-olgqkisd bilateral neural foraminal | | narrowing. No [...]
--- OUTSIDE RECORDS SUMMARY | ~2019-02-14 | XMS | Encounter Summary ---
Demographics + + + | Address | [address] [place] [address] | | | [place] [address] | + + + | Home Phone | | + + + | Preferred Language | Unknown | + + + | Marital Status | Unknown | + + + | Rastafari Affiliation | Unknown | + + + | Race | Unknown | + + + | Ethnic Group | Unknown | + + + Author + + + | Author | [facility] | | | and [place] | + + + | Organization | [facility] | | | [...] Team Providers + +------+ + | Care Utility Gelatin Maker Name | Role | Phone | [...] +--------+--------+ + + + + Encounter Details +--------+---------+ + + + | Date | Type | Department | Care Team | Description | +--------+---------+ + + + | 10/17/ | Surgery | [facility] | Samy Cardenas, | ILEOSTOMY REVISION | | 2019 | | [facility] | [address] | | | | | [address] | [address] | | | | | [address] | [place] [address] | | | | | [place], [place] | [phone] | | | | | [address] | | | | | | [phone] | | | +--------+---------+ + + + [...] Physician Discharge Summary Patient ID: Matthias Lambert [id number] 43 y.o. 1975 Admit date: 10/17/2018 Discharge [...] dry. No rash noted, not diaphoretic. Disposition: Nursing Home Patient Instructions: Discharge Medications New Medications Details [...] swollen skin; skin rash Date Last Reviewed: 08/30/201519991476-0081 [employer]. [address] [place] [address]. All righ ts reserved. This information is [...] and e nergy drinks Date Last Reviewed: 07/30/201619990032-4998 [employer]. [address] [place] [address]. All righ ts reserved. This information is [...] Lambert 43 y.o. 1975 Med. Record Number: [id number] Date of admission: 10/17/2018 Service(s): Colorectal Surgery [...] Output 1760 ml Net -306 ml 10/16 1901 - 10/18 0700 In: 1454 [I.V.:1454] Out: [...] performed at [facility], [address] | | LABORATORY | | | | [address], | | | | | | [place] [address] | | | | + + + + + + + + | Specimen | + + | Blood | + + + + + + + | Performing | Address | City/State/Zipcode | Phone Number | | Organization | | | | + + + + + | [facility] | [address] | [place] [address] | [phone] | + + + + + Basic [...] performed at [facility], [address] | | | | | | [facility], | | | | | | [place] [address] | | | | + + + + + + + + | Specimen | + + | Blood | + + + + + + + | Performing | Address | City/State/Zipcode | Phone Number | | Organization | | | | + + + + + | [facility] | [address] | [place] [address] | [phone] | + + + + + Type [...] + + + | BB BAND | [id number] | | [facility] | | | | | | LABORATORY | | + + + + + + | BB BAND | Testing performed at | | [facility] | | | | [facility] | | LABORATORY | | | | [address];[place] [address] | | | | + + + + + + + + | Specimen | + + | Blood - Right upper | | arm structure (body | | structure) | + + + + + + + | Performing | Address | City/State/Zipcode | Phone Number | | Organization | | | | + + + + + | [facility] | [address] | [place] [address] | [phone] | + + + + + documented in this encounter Visit Diagnoses + + | Diagnosis | + + | Infectious colitis Infectious colitis, enteritis, and gastroenteritis | + + documented in this encounter [...] | | | + +--------+ + +------+------+ +-------+ + +---+---+ | Given | 10/19/19 [...] | | | | First dose on 10/17/18 at 1615 | | AM PDT | [...] | | +---+---+ + +-------+ +--------+---+---+ | bupivacaine 0.5%-EPINEPHrine | Given | 10/18/19 | 30 mLs | | | | 1:200,000 (PF) injection PRN, | | 19 1:15 | | | | | Starting 10/17/18 at 1315, | | PM PDT | | | [...] | | | DAILY, First dose on 10/17/18 | | AM PDT | | | [...] PM PDT | | | | | 8/19/19 at 1551, First dose must | | [...]
--- OUTSIDE RECORDS SUMMARY | ~2019-02-14 | XMS | Encounter Summary ---
Demographics + + + | Address | [address] [place] [address] | | | [place] [address] | + + + | Home Phone [...] Author + + + | Author | [facility] | | | and [place] | + + + | Organization | [facility] | | [...] Team Providers + +------+ + | Care Residential Mental Health Worker Name | Role | Phone | + [...] | | | | [address] | [place] [address] | | | | | [place], [place] | [phone] | | | | | [address] | | | | | | [phone] | | | +--------+ + + + [...]
--- OUTSIDE RECORDS SUMMARY | ~2019-02-14 | XMS | Encounter Summary ---
Demographics + + + | Address | [address] [place] [address] | | | [place] [address] | + + + | Home Phone | | + + + | Preferred Language | Unknown | + + + | Marital Status | Unknown | + + + | Episcopal Affiliation | Unknown | + + + | Race | Unknown | + + + | Ethnic Group | Unknown | + + + Author + + + | Author | [facility] | | | and [place] | + + + | Organization | [facility] | | | [...] Team Providers + +------+ + | Care Supervisor Rolling Room Name | Role | Phone | + [...] | | | | | Muscle | SHOE SEWING MACHINE OPERATOR AND TENDER [address] | MEDICAL | | | | | weakness | [facility] [address] | | | | | (generalized | [place], | [address] | | | | | ) Acquired | [place] | [place]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 | [address] | [address] | | | | | (HCC) | Phone: | Phone: | | | | | Procedures | [phone] | [phone] | | | | | CT | Fax: | Fax: | | | | | Myelography | [phone] | [phone] | | | | | Cervical | [...] | | | | | Muscle | SHOE SEWING MACHINE OPERATOR AND TENDER [address] | MEDICAL | | | | | weakness | [facility] [address] | | | | | (generalized | [place], | [address] | | | | | ) Acquired | [place] | [place]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 | [address] | [address] | | | | | ([facility]) | Phone: | Phone: | | | | | Procedures | [phone] | [phone] | | | | | CT | Fax: | Fax: | | | | | Myelography | [phone] | [phone] | | | | | Cervical | | | | | | | Spine | | | +--------+--------+ + + + + Encounter Details +--------+ + + + + | Date | Type | Department | Care Team | Description | +--------+ + + + + | 02/01/ | Hospital | [facility] | Tawana Gan, | Weakness; Muscle | | 2019 | Encounter | [facility] CT | SHOE SEWING MACHINE OPERATOR AND TENDER [address] [place] | weakness | | | | [address] | [place] | (generalized); | | | | [place] | [address] | Acquired diplegia | | | | [address] | [phone] | ([facility]) | | | | [phone] | | | +--------+ + + + [...] and posterior decompressive | | | laminectomies. Zept-vb-qqjxpbqq bilateral neural foraminal | | | narrowing. No central canal stenosis. C6-C7: Postsurgical change | | | with anterior fusion and posterior decompressive laminectomy. | | | Ywmz-af-hkhzfmyj bilateral neural foraminal narrowing. No central | [...] fusion and posterior | | decompressive laminectomies. Svgs-bf-yjrovujc bilateral neural | | foraminal narrowing. No central canal stenosis. | | | | C6-C7: Postsurgical change with anterior fusion and posterior | | decompressive laminectomy. Vwzh-hc-jfnucbod bilateral neural foraminal | | narrowing. No [...]
--- OUTSIDE RECORDS SUMMARY | ~2019-02-14 | XMS | Encounter Summary ---
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 1975 Admit date: 10/17/2018 Discharge [...] dry. No rash noted, not diaphoretic. Disposition: Custodial Patient Instructions: Discharge Medications New Medications Details [...] swollen skin; skin rash Date Last Reviewed: 08/30/201519999950-1417 [email or web address]. [address] [place] [address]. All righ ts reserved. This information is [...] be less than 0.5 (1/2) gram per erki g. What to avoid: whole-wheat or whole-grain [...] and e nergy drinks Date Last Reviewed: 07/30/201619999007-6103 [email or web address]. [address] [place] [address]. All righ ts reserved. This information is [...] Lambert 43 y.o. 1975 Med. Record Number: [id number] Date of admission: 10/17/2018 Service(s): Colorectal Surgery [...] Dr. Cardenas. DELANEY Lilly 12:31; 10/18/2018 Polly rWight RN - 10/18/2018 5:24 AM PDTEnd of [...] RICK | | | | performed at [facility], [address] | LABORATORY | | | | [address], | | | | | | [place] [address] | | | | + + + + + + + + | Specimen | + + | Blood | + + + + + + + | Performing | Address | City/State/Zipcode | Phone Number | | Organization | | | | + + + + + | [facility] | [address] | [place] [address] | [phone] | + + + + + Basic [...] | | | | | performed at [facility], [address] | | | | | [address], | | | | | | [place] [address] | | | | + + + + + + + + | Specimen | + + | Blood | + + + + + + + | Performing | Address | City/State/Zipcode | Phone Number | | Organization | | | | + + + + + | [facility] | [address] | [place] [address] | [phone] | + + + + + Type [...] + + + | [facility] | [id number] | | [facility] | | | | | | LABORATORY | | + + + + + + | [facility] | Testing performed at | | [facility] | | | | [facility];[address] | LABORAT[address] | | | | [address];[place] [address] | | | | + + + + + + + + | Specimen | + + | Blood - Right upper | | arm structure (body | | structure) | + + + + + + + | Performing | Address | City/State/Zipcode | Phone Number | | Organization | | | | + + + + + | [facility] | [address] | [place] [address] | [phone] | + + + + + documented [...] | | | | | | longer, nfavck-wwd-eutxy use of | | | | | [...] | | | | | | | qflaiu-sia-nazay use of at least | | | [...]
--- OUTSIDE RECORDS SUMMARY | ~2019-02-14 | XMS | Encounter Summary ---
Demographics + + + | Address | [address] [place] [address] | | | [place] [address] | + + + | Home Phone | | + + + | Preferred Language | Unknown | + + + | Marital Status | Unknown | + + + | Spiritism Affiliation | Unknown | + + + | Race | Unknown | + + + | Ethnic Group | Unknown | + + + Author + + + | Author | [facility] | | | and [place] | + + + | Organization | [facility] | | | and [...] Team Providers + +------+ + | Care Veneer Joiner Name | Role | Phone | + +------+ + PCP | Unavailable | + +------+ + Encounter Details +--------+ + + + + | Date | Type | Department | Care Team | Description | +--------+ + + + + | 04/19/ | Hospital | [facility] | Douglas Logan DO | Cervical | | 2019 - | Encounter | [facility] ACUTE | [address] | radiculopathy at C6; | | | | CARE FLOOR [address] | Cervical | | 05/03/ | | [address] | [place] [address] | radiculopathy at C7; | | 2019 | | [place], [place] | [phone] | 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 | | | | [phone] | | of cervical region; | | | | | | Bilateral carpal | | | | | | tunnel syndrome; | | | | | | Muscle weakness of | | | | | | upper extremity; | | | | | | Infectious colitis; | | | | | | Cervical myelopathy | | | | | | ([facility]); S/P | | | | | | laminectomy; Sepsis, | | | | | | due to unspecified | | | | | | organism ([facility]) | +--------+ + + + + Social [...] Date of Service: 05/03/18 1222 Status: Signed Potato Seed Cutter: Douglas Logan DO (Physician) Neurosurgery Discharge Summary [facility] Neurosurgery Provider: Douglas Logan DO [...] ANTERIOR; Surgeon: Douglas Logan DO; Location: [facility] MAIN OR; Service: Neurosurgery; Laterality: N/A; C5-7 CERVICAL LAMINECTOMY N/A 04/19/2018 Procedure: CERVICAL - LAMINECTOMY POSTERIOR; Surgeon: Douglas Logan DO; Location: [facility] MAIN OR; Service: Neurosurgery; Laterality: N/A; Posterior Cervical Laminectomy, Foramino maxx five to seven. Possible adjacent levels. COLECTOMY N/A 04/25/2018 Procedure: COLECTOMY; Surgeon: Samy Cardenas MD; Location: [facility] MAIN OR; Service: G eneral; Laterality: N/A; ILEOSTOMY 04/25/2018 Procedure: ILEOSTOMY; Surgeon: Samy Cardenas MD; Location: [facility] MAIN OR; Service: G eneral;; LAPAROTOMY N/A 04/25/2018 Procedure: EXPLORATION - LAPAROTOMY; Surgeon: Samy Cardenas MD; Location: [facility] MAIN OR; Service: General; Laterality: N/A; LIPOMA [...] Allergies Brief History of Presentation: 11/29/2016 Matthias Weber a 41 y.o.malewith severe [...] and fusion C5-7. Patient unfortunately is a retirement patient, and despite our insistence, was not offered postoperative followup and followed with the local retirement physician. Patient states after surgical interve ntion, [...] in nature. He was evaluated by his retirement physician, who spencer ectly ordered a CT [...] few months ago. Patient also has minor risk officer and hand weakness with left side biceps weakness. Patient has been trying Neurontin; but because the retirement c ontrolled the substances, not been getting it all the time. Patient does have what appears to be a lot of medical concerns for someone in retirement. Admission Date - >04/19/2018 < - OR [...] 05/03 0659 In: 6502.7 [P.O.:1037; I.V.:4891.5] Out: 86079 [Urine:7100] PHYSICAL EXAM: General: Pleasant, awake, alert, [...] symptoms [facility] Patient educated on warning signs of infection and instructions to return if those si gns occur. Patient voiced understanding of education and agrees with Disposition: Retirement Condition: Stable Code Status: Full Code Discharge [...] Follow Up Numbers: Samy Cardenas MD [address] [facility] [id number] In 2 weeks Oracio Villaseñor MD [address] [facility] [id number] Douglas Logan DO [address] [place] [facility] [id number] Medication List START taking these medications calcium [...] summary. Douglas Logan D.O Board Certified Neurosurgeon [facility] Neuroscience Center Office Wale Rosado MD - 05/03/2018 8:49 AM PST Discharge Summaries by Wale Sandoval MD at 05/03/18 0849 Author: Wale Sandoval MD Service: Hospitalist Author Type: Physician Filed: 05/03/18899 Date of Service: 05/03/18848 Status: Signed Potato Seed Cutter: Wale Sandoval MD (Physician) [facility] Service: Hospitalist Discharge Summary Date of [...] Code Follow up: Samy Cardenas MD [address] [facility] [address] In 2 weeks Oracio Villaseñor MD [address] [facility] [address] Douglas Logan DO [address] [place] [facility] [address] Medication List START taking these medications [...] 1523 Date of Service: 05/03/181510 Status: Signed Potato Seed Cutter: Kecia Thurman RN (Registered Nurse) VSS, ABX given as ordered, ileostomy site cleaned and bag changed. Report given to nurse at [facility] facility. PICC flushed and saline locked, brown empty . Paperwork and all belongings given to guards. Pain meds and valium given immediately befo re discharge for adequate pain control. Pt Discharging to [facility] with guards via their vehicle. onver antonio Transaction, Provider Unknown - 05/03/2018 9:35 AM PST Case Management by PARDEEP Serrato at 05/03/1872 Author: PARDEEP Serrato Service: (none) Author Type: Senior Pastor Filed: 03/05/19 0937 Date of Service: 05/03/18 0935 Status: Signed Potato Seed Cutter: PARDEEP Serrato (Senior Pastor) 05/03/18 0900 Discharge Planning Evaluation Admitting Diagnosis Cervical Myelopathy Anticipated Disposition Facility Type Other (Comment) ([facility] - pending [place] vs [place]) INTERNATIONAL TRADE TEACHER p/c with Sweetie at [facility] ([phone] cell, Fax) reviewed latest clinicals, needing IV Abx, new colostomy, would benefit from o /p PT and OT, will need follow up with providers. Sweetie will call back with location of faci lity. DCP: [facility] JANET DOCKERY Senior Pastor [phone] cell onver antonio Transaction, Provider Unknown - 05/02/2018 5:01 PM PST Nurse Progress Note by Kecia Thurman RN at 05/02/18 170 Author: Kecia Thurman RN Service: (none) Author Type: Registered Nurse Filed: 05/03/18 0729 Date of Service: 05/02/18 170 Status: Signed Potato Seed Cutter: Kecia Thurman RN (Registered Nurse) VSS, afebrile. ABX given. Nai-sh-vyhyx chart review performed onver antonio Transaction, Provider Unknown - 05/02/2018 3:40 PM PST Therapy Progress Note by Mesha Paniagua PT at 05/02/18 1540 Author: Mesha Paniagua PT Service: (none) Author Type: Physical Therapist Filed: 05/02/18 1626 Date of Service: 05/02/18 1540 Status: Addendum Potato Seed Cutter: Mesha Paniagua PT (Physical Therapist) Related Notes: [...] Barriers to Discharge: Physical Deficits Impacting Functional [place], Self-care Defic its Impacting Functional [place] Recommendation Comments: Pt SBA in all mobility, incl 16 stairs (notes 12 step flights, may stand to rest between flights prn). Likely safe to return to facility per [facility]. May bene fit from f/u OT [...] limited by pain Medical Staff Made Aware: INTERNATIONAL TRADE TEACHER Janet notified of pt mobility status and [...] (pt. doesn't need to due stairs at [facility]) Stairs Level of Assist: With supervision Reflects last filed data of patient's status; may be from multiple contributors BP 122 systolic post activity, HR 110's; asymptomatic Oracio Preciado MD - 05/02/2018 3:37 PM PSTFormatting of this note might be differe nt from the original. Progress Notes by Oracio Villaseñor MD at 05/02/18 0734 Author: Oracio Villaseñor MD Service: Infectious Disease Author Type: Mago ruthy Filed: 05/02/18 0763 Date of Service: 05/02/181536 Status: Signed Potato Seed Cutter: Oracio Villaseñor MD (Physician) [facility] Service: Infectious Diseases Progress Note Hospital [...] Value Units Date/Time Neuromyelitis optica IgG, CSF [[id number]] Collected: 04/20/18 1600 Updated: 04/30/18 0006 NEURO [...] down. Discussed with Dr. Sandoval. Discussed with ed case manager re: discharge planning and antibiotics. Oracio Conti MD, MPH Infectious Diseases 05/02/2018 onvers ion Transaction, Provider Unknown - 05/02/2018 3:36 PM PST Case Management by PARDEEP Serrato at 05/02/18 1536 Author: PARDEEP Serrato Service: (none) Author Type: Senior Pastor Filed: 05/02/18 1621 Date of Service: 05/02/18 1536 Status: Addendum Potato Seed Cutter: PARDEEP Serrato (Senior Pastor) Related Notes: Original Note by PARDEEP Serrato (Senior Pastor) filed at 05/02/18 1547 05/02/18 1500 Discharge Planning Evaluation Admitting Diagnosis Cervical Myelopathy Anticipated Disposition Facility Type Other (Comment) ([facility] - Loc. pend. O/P Cares need ) INTERNATIONAL TRADE TEACHER p/c with David PT recommends Outpatient Physical therapy 2-3 times per week. INTERNATIONAL TRADE TEACHER p/c with Sweetie at [facility] [facility] at [facility] ([phone] cell, Fax) states they were planning for Pt to go back to a [facility] [place] [facility] in [place], unfortunately EOI, has many stairs to navigate, states due to n eed for care, may be better suited to go [address] [place] [address] [facility] in [facility], pending. INTERNATIONAL TRADE TEACHER updated clinicals. INTERNATIONAL TRADE TEACHER p/c with Dr. Sushila Villaseñor, states he will print out the IV Abx scripts, will fax to Radha ross, coordinator at [facility]. INTERNATIONAL TRADE TEACHER p/c with Yu PT states Pt was able to 16 "step-ups" in the room, recommends outpati ent PT and OT. OT for right arm. DCP: [facility] [place] [facility] JANET DOCKERY, Senior Pastor [phone] cell Wale Hernández MD - 05/02/2018 3:35 PM PST Progress Notes by Wale Sandoval MD at 05/02/18 1534 Author: Wale Sandoval MD Service: Hospitalist Author Type: Physician Filed: 05/02/181536 Date of Service: 05/02/181534 Status: Signed Potato Seed Cutter: Wale Sandoval MD (Physician) [facility] Service: Hospitalist Progress Note Pt: Matthias [...] Subramanian neurologist per his note on 04/25, [place] to be ADEM vs contusion vs spinal [...] hours. No results for input(s): PHART, PO2ART, DMV3CDF, K8XGCCLK, BEART in the last 168 hours. No [...] by DELANEY Cherry at 05/02/18907 Author: DELANEY Cehrry Service: General Surgery Author Type: Nurse Alek urena Filed: 05/02/18912 Date of Service: 05/02/18907 Status: Signed Potato Seed Cutter: DELANEY Cherry (Nurse Practitioner) [facility] Service: Colon & Rectal Surgery Progress [...] 0835 Date of Service: 05/02/18827 Status: Signed Potato Seed Cutter: Douglas Logan DO (Physician) Neurosurgery Progress Note [...] fusion C5-7. Patient unf ortunately is a retirement patient, and despite our insistence, was not offered postoperative foll owup and followed with the local retirement physician. 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 Patient was doing rather well for approximately 6 to 8 months until he started h aving intermittent tingling down his left hand in the C6 and C7 dermatomal region. This has returned and increased in nature. He was evaluated by his retirement physician, who correctly or dered a CT [...] few months ago. 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 Patient has been trying Neurontin; but because the retirement controlled the s ubstances, not been getting it all the time. Patient does have what appears to be a lot of medical concerns for someone in retirement. Admission Date - >04/19/2018 < - OR [...] per 24 hour Intake 3675 ml Output 97966 ml Net -7550 ml 05/02 0700 - 05/02 1859 In: - Out: 700 [Urine:700] 04/30 1900 - 05/02 0659 In: 7563 [P.O.:4500; I.V.:2963] Out: 04664 [Urine:98449] Vent Settings Last 24hrs: PHYSICAL EXAM: General: [...] PT/OT 6. Likely disposition back to prior retirement with need for final recommendations from ID, Medic ine, and General Surgery teams. [facility] disposition [facility] c an be established. Douglas Logan D.O Board Certified Neurosurgeon [facility] Neuroscience Center Office onversion Transactio n, Provider Unknown - 05/02/2018 5:47 AM PST Nurse Progress Note by Kenisha Todd RN at 05/02/18546 Author: Kenisha Todd RN Service: (none) Author Type: Registered Nurse Filed: 05/02/18546 Date of Service: 05/02/18546 Status: Signed Potato Seed Cutter: Kenisha Todd RN (Registered Nurse) No acute [...] 05/01/181718 Date of Service: 05/01/181712 Status: Signed Potato Seed Cutter: Oracio Villaseñor MD (Physician) [facility] Service: Infectious Diseases Progress Note Hospital [...] (none) Author Type: Registered Dietitian Filed: 05/02/18 1056 Date of Service: 05/01/18 1300 Status: Signed Potato Seed Cutter: Ramona Candelaria RD (Registered Dietitian) This note [...] 05/01/18923 Date of Service: 05/01/18817 Status: Addendum Potato Seed Cutter: Wale Sandoval MD (Physician) Related Notes: Original Note by Wale Sandoval MD (Physician) filed at 05/01/18918 [facility] Service: Hospitalist Progress Note Pt: Matthias Lambert AGE/SEX: 42 y.o. male ROOM: [facility]9107- : 1975 PCP: Per PT None ADMIT [...] Subramanian neurologist per his note on 04/25, [place] to be ADEM vs contusion vs spinal [...] 05/01/18 0652 Gross per 24 hour Intake 70118 ml Output 07577 ml Net -671 ml No data found. [...] hours. No results for input(s): PHART, PO2ART, OTY3JBM, M4BSEKBL, BEART in the last 168 hours. No [...] 05/01/18549 Date of Service: 05/01/18547 Status: Signed Potato Seed Cutter: Kenisha Todd RN (Registered Nurse) Pt c/o [...] 04/30/181941 Date of Service: 04/30/181939 Status: Signed Potato Seed Cutter: Alesha Johnson RN (Registered Nurse) Pt vitals stable. Medicated for pain throughout the day. Ostomy appliance changed by baling machine tender. Needs and concerns addressed with pt. End of shift audit complete. Alesha Johnson RN onver antonio Transaction, Provider Unknown - 04/30/2018 2:34 PM PST Case Management by PARDEEP Armstrong at 04/30/18 2978 Author: PARDEEP Armstrong Service: (none) Author Type: Nanotechnology Engineering Technician Filed: 04/30/18 1437 Date of Service: 04/30/18 1434 Status: Signed Potato Seed Cutter: PARDEEP Armstrong (Nanotechnology Engineering Technician) CM received call from Wound Care (Frida [phone]) asking if the [facility][note 3] at [facility] ([facility]) will have the ostomy supplies the patient n eeds when he returns there. CM called [facility] and spoke to RN who said that [facility] usually provided initial needed supplie s (1 [...] Date of Service: 04/30/18 1001 Status: Signed Potato Seed Cutter: DELANEY Cherry (Nurse Practitioner) [facility] Service: Colon & Rectal Surgery Progress [...] comes out. Disposition: Code Status: Full Code DELANEY CHERRY 04/30/2018 Mundo Granda MD - 04/30/2018 9:10 AM PST . Progress Notes by Mundo Ghosh MD at 04/30/18 09 Author: Mundo Ghosh MD Service: Hospitalist Author Type: Physician Filed: 04/30/18 1202 Date of Service: 04/30/18909 Status: Signed Potato Seed Cutter: Mundo Ghosh MD (Physician) [facility] Service: Hospitalist Progress Note Pt: Matthias [...] per 24 hour Intake 3900 ml Output 03225 ml Net -7030 ml No data found. [...] Value Units Date/Time Neuromyelitis optica IgG, CSF [[id number]] Collected: 04/20/18 1600 Updated: 04/30/18 0006 NEURO OPTICA IGG CSF < 1:1 CSF IgG index [[id number]] Collected: 04/20/18 1600 Specimen: Cerebrospinal Fluid from Lumbar Puncture Updated: 04/29/18 0909 IGG,CSF 5.6 mg/dL ALBUMIN,CSF 34 mg/dL IgG 917 mg/dL Albumin 3.8 mg/dL CSF, IGG/ALB, RATIO 0.16 CSF/SERUM INDEX 0.7 Anaerobic Culture W/Gram Stain [[id number]] Collected: 04/25/18 1635 Specimen: Abdomen Updated: 04/29/18 0824 Specimen Description ABDOMEN SPECIAL REQUESTS CX AND SENSITIVITY GRAM STAIN 2+ GRAM STAIN WBC'S SEEN GRAM STAIN NO EPITHELIAL CELLS SEEN GRAM STAIN NO ORGANISMS SEEN CULTURE NO GROWTH 4 DAYS Blood Culture Set 1 [[id number]] Collected: 04/23/18 0851 Specimen: Blood from Blood, peripheral draw Updated: 04/29/18602 Specimen Description BLOOD, PERIPHERAL DRAW SPECIAL REQUESTS RAC CULTURE NO GROWTH 6 DAYS Blood Culture Set 2 [[id number]] Collected: 04/23/18 0858 Specimen: Blood from Blood, peripheral draw Updated: 04/29/18 06 Specimen Description BLOOD, PERIPHERAL DRAW SPECIAL REQUESTS LWRIST CULTURE NO GROWTH 6 DAYS Myelin basic protein, CSF [[id number]] (Abnormal) Collected: 04/20/18 1600 Specimen: Cerebrospinal Fluid [...] MD, FACP 04/30/2018 9:10 AM Dictation software, bounce.io, used which may contain error for similar [...] 1147 Date of Service: 04/30/18905 Status: Signed Potato Seed Cutter: Vikas Garcia PT (Physical Therapist) PHYSICAL THERAPY TREATMENT NOTE PT Received On: 04/30/18 Reason for Treatment: Spinal surgery (cervical laminectomy and foraminotomy) Requires PT Follow Up: Yes PT Eval/Reassessment Date: 04/30/18 Recommendations: Prior Setting Barriers to Discharge: Self-care Deficits Impacting Functional [place], Physical Defic its Impacting Functional [place], Pain PT Ready for Discharge: Yes Plan [...] ([facility] Stairs Level of Assist: With supervision Reflects last filed data of patient's status; may be from multiple contributors AChoIsabella durham MD - 04/30/2018 7:40 AM PST Progress Notes by Isabella Duval MD at 04/30/18739 Author: Isabella Duval MD Service: Neurosurgery Author Type: Physician Filed: 04/30/18817 Date of Service: 04/30/18739 Status: Signed Potato Seed Cutter: Isabella Duval MD (Physician) [facility] Service: Neurosurgery Progress Note Hospital Day: [...] 1-2/5 delt, biceps, 1/5 triceps, 0/5 wrist, risk officer, intrinsics PROBLEM LIST Principal Problem: Sepsis (HCC) Active Problems: Cervical myelopathy (HCC) S/P laminectomy Infectious colitis ASSESSMENT & PLAN Continue current management for pain, will need dispo as RUE paralysis makes ostomy care im possible. Disposition: Group Home Code Status: Full Code Isabella Duvla MD 04/30/2018 onversion Tra nsaction, Provider Unknown - 04/30/2018 6:49 AM PSTFormatting of this note might be differe nt from the original. Nurse Progress Note by Kenisha Todd RN at 04/30/18 0649 Author: Kenisha Todd RN Service: (none) Author Type: Registered Nurse Filed: 04/30/18 0650 Date of Service: 04/30/1849 Status: Signed Potato Seed Cutter: Kenisha C Todd, RN (Registered Nurse) Pain [...] at 04/30/18509 Author: Vicki Corona RN Service: Picker / Packer Author Type: Registered Nurse Filed: 04/30/18509 Date of Service: 04/30/18509 Status: Signed Potato Seed Cutter: Vicki Corona RN (Registered Nurse) Sepsis team signing off. Please contact us with any questions or concerns. Vicki Corona RN onver antonio Transaction, Provider Unknown - 04/29/2018 7:46 PM PST Nurse Progress Note by Larisa Taylor RN at 04/29/181945 Author: Larisa Taylor RN Service: (none) Author Type: Registered Nurse Filed: 04/29/181948 Date of Service: 04/29/181945 Status: Signed Potato Seed Cutter: Larisa Taylor RN (Registered Nurse) Pt had [...] Notes by Giovani Callahan MD at 04/29/18 4629 Author: Giovani Callahan MD Service: Neurosurgery Author Type: Physician Filed: 04/29/181837 Date of Service: 04/29/181828 Status: Signed Potato Seed Cutter: Giovani Callahan MD (Physician) [facility] Service: Neurological Surgery Progress Note Hospital [...] completed shifts: In: 2977.7 [P.O.:1100; I.V.:1877.7] Out: 36340 [Urine:11878; Stool:450] Input/Output Last shift No intake/output data [...] Notes by Oracio Villaseñor MD at 04/29/18 7685 Author: Oracio Villaseñor MD Service: Infectious Disease Author Type: Physic ruthy Filed: 04/29/181923 Date of Service: 04/29/18 151 Status: Signed Potato Seed Cutter: Oracio Villaseñor MD (Physician) [facility] Service: Infectious Diseases Progress Note Hospital [...] Component Value Units Date/Time CSF IgG index [[id number]] Collected: 04/20/18 1600 Specimen: Cerebrospinal Fluid from Lumbar Puncture Updated: 04/29/18 0909 IGG,CSF 5.6 mg/dL ALBUMIN,CSF 34 mg/dL IgG 917 mg/dL Albumin 3.8 mg/dL CSF, IGG/ALB, RATIO 0.16 CSF/SERUM INDEX 0.7 Anaerobic Culture W/Gram Stain [[id number]] Collected: 04/25/18 1635 Specimen: Abdomen Updated: 04/29/18 0824 Specimen Description ABDOMEN SPECIAL REQUESTS CX AND SENSITIVITY GRAM STAIN 2+ GRAM STAIN WBC'S SEEN GRAM STAIN NO EPITHELIAL CELLS SEEN GRAM STAIN NO ORGANISMS SEEN CULTURE NO GROWTH 4 DAYS Blood Culture Set 1 [[id number]] Collected: 04/23/18 0851 Specimen: Blood from Blood, peripheral draw Updated: 04/29/18602 Specimen Description BLOOD, PERIPHERAL DRAW SPECIAL REQUESTS RAC CULTURE NO GROWTH 6 DAYS Blood Culture Set 2 [[id number]] Collected: 04/23/18 0858 Specimen: Blood from Blood, peripheral draw Updated: 04/29/18602 Specimen Description BLOOD, PERIPHERAL DRAW SPECIAL REQUESTS LWRIST CULTURE NO GROWTH 6 DAYS Myelin basic protein, CSF [[id number]] (Abnormal) Collected: 04/20/18 1600 Specimen: Cerebrospinal Fluid [...] measures. Discussed with Dr. Ghosh Discussed with ed case manager. Coordinate OPAT with DOC. Side effects discussed [...] 04/29/18946 Date of Service: 04/29/18944 Status: Signed Potato Seed Cutter: DELANEY Cherry (Nurse Practitioner) [facility] Service: Colon & Rectal Surgery Progress [...] Infusions lactated ringers 125 mL/hr at 04/29/18 0780 PRN Medications acetaminophen OR acetaminophen, calcium carbonate, [...] Author: PARDEEP Serrato Service: (none) Author Type: Senior Pastor Filed: 04/29/18 Date of Service: 04/29/18932 Status: Addendum Potato Seed Cutter: PARDEEP Serrato (Senior Pastor) Related Notes: Original Note by PARDEEP Serrato (Senior Pastor) filed at 04/29/18 1611 04/29/18 09 Discharge Planning Evaluation Admitting Diagnosis Cervical Myelopathy Anticipated Disposition Facility Type Other (Comment) INTERNATIONAL TRADE TEACHER received p/c msg from Sweetie at [facility], requesting our Attending P nathaly Colindres call Dr. Alatorre ([phone] cell) to coordinate care needs at [facility] after this hospitalization. INTERNATIONAL TRADE TEACHER met with Dr. Ghosh anticipates Pt staying the weekend, INTERNATIONAL TRADE TEACHER will follow up on Wednesday. [facility] ([facility]), [address], [place] [address] [facility] number for nurse to nurse report is [phone] / DCP: [facility] ([facility]) - Group Home JANET DOCKERY, Senior Pastor [phone] cell Mundo Peng MD - 04/29/2018 9:07 AM PST Progress Notes by Mundo Ghosh MD at 04/29/18906 Author: Mundo Ghosh MD Service: Hospitalist Author Type: Physician Filed: 04/29/18 1414 Date of Service: 04/29/18906 Status: Signed Potato Seed Cutter: Mundo Ghosh MD (Physician) [facility] Service: Hospitalist Progress Note Pt: Matthias Lambert AGE/SEX: 42 y.o. male ROOM: [facility]/91-1 : 1975 PCP: Per PT None ADMIT [...] Value Units Date/Time Anaerobic Culture W/Gram Stain [[id number]] Collected: 04/25/18 1635 Specimen: Abdomen Updated: 04/29/18 0824 Specimen Description ABDOMEN SPECIAL REQUESTS CX AND SENSITIVITY GRAM STAIN 2+ GRAM STAIN WBC'S SEEN GRAM STAIN NO EPITHELIAL CELLS SEEN GRAM STAIN NO ORGANISMS SEEN CULTURE NO GROWTH 4 DAYS Blood Culture Set 1 [[id number]] Collected: 04/23/18 0851 Specimen: Blood from Blood, peripheral draw Updated: 04/29/18 0603 Specimen Description BLOOD, PERIPHERAL DRAW SPECIAL REQUESTS RAC CULTURE NO GROWTH 6 DAYS Blood Culture Set 2 [[id number]] Collected: 04/23/18 0858 Specimen: Blood from Blood, peripheral draw Updated: 04/29/18 0603 Specimen Description BLOOD, PERIPHERAL DRAW SPECIAL REQUESTS LWRIST CULTURE NO GROWTH 6 DAYS Myelin basic protein, CSF [[id number]] (Abnormal) Collected: 04/20/18 1600 Specimen: Cerebrospinal Fluid [...] MD, FACP 04/29/2018 9:07 AM Dictation software, [email or web address], used which may contain error for similar [...] 04/29/18621 Date of Service: 04/29/18621 Status: Signed Potato Seed Cutter: Kenisha Todd RN (Registered Nurse) Prn oxycodone given X2 for pain and valium X2 for muscle spasms. Pt continues to have black type 7 output from ileostomy with frequent gas. Pt states having some relief from bloating. Brown catheter has adequate output. End of shift review complete. Kenisha Todd onver antonio Transaction, Provider Unknown - 04/28/2018 6:55 PM PST Nurse Progress Note by Queenie Schwartz RN at 04/28/181854 Author: Queenie Schwartz RN Service: (none) Author Type: Registered Nurse Filed: 04/28/181953 Date of Service: 04/28/181854 Status: Signed Potato Seed Cutter: Queenie Schwartz RN (Registered Nurse) End of shift chart check complete. QUEENIE SCHWARTZ RN onver antonio Transaction, Provider Unknown - 04/28/2018 4:17 PM PST Therapy Progress Note by DONNA Santoyo at 04/28/181616 Author: DONNA Santoyo Service: (none) Author Type: Occupational Therapy Silvana zeng Filed: 04/28/18 1720 Date of Service: 04/28/181616 Status: Signed Potato Seed Cutter: DONNA Santoyo (Marine Meteorologist) OCCUPATIONAL THERAPY TREATMENT NOTE OT Received On: 04/28/18 Reason for Treatment: Spinal surgery Requires OT Follow Up: Yes Assistance Required: 1 person Vp Securities Needed: No Family/Caregiver Present: Yes (shelter guards) Recommendation: (continue IRF) Equipment Recommended: (TBD) Requires OT Follow Up: Yes Recommendation Comments Plan Treatment Interventions: (per OT POC) Progress: Progressing toward goals Requires OT Follow Up: Yes Focus for next session: Further clarification of tubi risk officer for RUE, donning of shirt, transfers, sensory reintegrat Gilma salgado(RUE) Follow up by: [] OT [] BRIAN [x] Either Precautions Spinal Precautions: Cervical Other Precautions: Fall precautions, flaccid RUE, impulsivity, Ankle shackles Summary pt seated in recliner chair upon BOWLING ALLEY REFINISHER arrival. Agreeable to participate in OT at [...] with RN for possible use of tubi risk officer to assist with edema. Will benefit from [...] Note by David Arnold PT at 04/28/18 1447 Author: David Arnold PT Service: (none) Author Type: Physical Therapist Filed: 04/28/18 8796 Date of Service: 04/28/181439 Status: Signed Potato Seed Cutter: David Arnold PT (Physical Therapist) PHYSICAL THERAPY [...] Date of Service: 04/28/18 114 Status: Signed Potato Seed Cutter: Abhay An MD (Physician) [facility] Service: Neurosurgery Progress Note Hospital Day: [...] Disease Author Type: Physic ruthy Filed: 04/28/18 3080 Date of Service: 04/28/18 1130 Status: Signed Potato Seed Cutter: Oracio Villaseñor MD (Physician) [facility] Service: Infectious Diseases Progress Note Hospital [...] Value Units Date/Time Anaerobic Culture W/Gram Stain [[id number]] Collected: 04/25/18 1635 Specimen: Abdomen Updated: 04/28/18 0704 Specimen Description ABDOMEN SPECIAL REQUESTS CX AND SENSITIVITY GRAM STAIN 2+ GRAM STAIN WBC'S SEEN GRAM STAIN NO EPITHELIAL CELLS SEEN GRAM STAIN NO ORGANISMS SEEN CULTURE NO GROWTH 3 DAYS Myelin basic protein, CSF [[id number]] (Abnormal) Collected: 04/20/18 1600 Specimen: Cerebrospinal Fluid from Lumbar Puncture Updated: 04/27/18 1316 Myelin Basic Prot, CSF >167.0 (H) ng/mL HSV 1/2 detect/diff by rtpcr : for antigen testing on CSF, newborns & immuno-compromised. [[id number]] Collected: 04/20/18 1600 Specimen: Cerebrospinal Fluid from CSF Updated: 04/25/18 2107 SOURCE CEREBROSPINAL FLUID HSV DNA Type 1 Negative HSV DNA Type 2 Negative VDRL, CSF [[id number]] Collected: 04/20/18 1600 Specimen: Cerebrospinal Fluid from [...] Campos RN at 04/28/18 1103 Author: Era Campos RN Service: Wound/Ostomy Care Author Type: Registered Nurse Filed: 04/28/18 1116 Date of Service: 04/28/181102 Status: Signed Potato Seed Cutter: Era Campos RN (Registered Nurse) [facility] Service: Ostomy Care Consult Note Hospital [...] time for ABX instill per RN. Stoma: [place], moist, well budded Sally-stomal: Clean, dry, intact [...] not have this number at this time. assistant media planner will follow up in 2 days for follow up on pouching and supplies for DC. Thank you for allowing me to participate in the care of this patient. I have discussed my recommendations with the attending physician. I will continue to follow with you. Era Campos RN [facility] 04/28/2018 Mundo Peng MD - 04/28/2018 8:56 AM PST Progress Notes by Mundo Ghosh MD at 04/28/18855 Author: Mundo Ghosh MD Service: Hospitalist Author Type: Physician Filed: 04/28/18 1210 Date of Service: 04/28/1856 Status: Signed Potato Seed Cutter: Mundo Ghosh MD (Physician) [facility] Service: Hospitalist Progress Note Pt: Matthias Lambert AGE/SEX: 42 y.o. male ROOM: [address] [place] [address] : 1975 PCP: Per PT None ADMIT [...] Value Units Date/Time Anaerobic Culture W/Gram Stain [[id number]] Collected: 04/25/18 1635 Specimen: Abdomen Updated: 04/28/18 0704 Specimen Description ABDOMEN SPECIAL REQUESTS CX AND SENSITIVITY GRAM STAIN 2+ GRAM STAIN WBC'S SEEN GRAM STAIN NO EPITHELIAL CELLS SEEN GRAM STAIN NO ORGANISMS SEEN CULTURE NO GROWTH 3 DAYS Myelin basic protein, CSF [[id number]] (Abnormal) Collected: 04/20/18 1600 Specimen: Cerebrospinal Fluid from Lumbar Puncture Updated: 04/27/18 1316 Myelin Basic Prot, CSF >167.0 (H) ng/mL HSV 1/2 detect/diff by rtpcr : for antigen testing on CSF, newborns & immuno-compromised. [[id number]] Collected: 04/20/18 1600 Specimen: Cerebrospinal Fluid from CSF Updated: 04/25/18 2107 SOURCE CEREBROSPINAL FLUID HSV DNA Type 1 Negative HSV DNA Type 2 Negative VDRL, CSF [[id number]] Collected: 04/20/18 1600 Specimen: Cerebrospinal Fluid from [...] MD, FACP 04/28/2018 8:56 AM Dictation software, [email or web address], used which may contain error for similar [...] 1229 Date of Service: 04/28/18851 Status: Signed Potato Seed Cutter: DELANEY Cherry (Nurse Practitioner) [facility] Service: Colon & Rectal Surgery Progress [...] 04/28/189 Date of Service: 04/28/18445 Status: Signed Potato Seed Cutter: Enriqueta Burgess RN (Registered Nurse) Abdominal dressing [...] 194 Date of Service: 04/27/181729 Status: Signed Potato Seed Cutter: Oracio Lazar RN (Registered Nurse) Brown catheter [...] Notes by Oracio Villaseñor MD at 04/27/18 406 Author: Oracio Villaseñor MD Service: Infectious Disease Author Type: Physic ruthy Filed: 04/27/181656 Date of Service: 04/27/181648 Status: Signed Potato Seed Cutter: Oracio Villaseñor MD (Physician) [facility] Service: Infectious Diseases Progress Note Hospital [...] Value Units Date/Time Myelin basic protein, CSF [[id number]] (Abnormal) Collected: 04/20/18 1600 Specimen: Cerebrospinal Fluid from Lumbar Puncture Updated: 04/27/18 1316 Myelin Basic Prot, CSF >167.0 (H) ng/mL Anaerobic Culture W/Gram Stain [[id number]] Collected: 04/25/18 1635 Specimen: Abdomen Updated: 04/27/18 1124 Specimen Description ABDOMEN SPECIAL REQUESTS CX AND SENSITIVITY GRAM STAIN 2+ GRAM STAIN WBC'S SEEN GRAM STAIN NO EPITHELIAL CELLS SEEN GRAM STAIN NO ORGANISMS SEEN CULTURE NO GROWTH 2 DAYS HSV 1/2 detect/diff by rtpcr : for antigen testing on CSF, newborns & immuno-compromised. [[id number]] Collected: 04/20/18 1600 Specimen: Cerebrospinal Fluid from CSF Updated: 04/25/18 2107 SOURCE CEREBROSPINAL FLUID HSV DNA Type 1 Negative HSV DNA Type 2 Negative VDRL, CSF [[id number]] Collected: 04/20/18 1600 Specimen: Cerebrospinal Fluid from Lumbar Puncture Updated: 04/25/18 1210 VDRL Quant, CSF Non Reactive Fecal occult blood (in house) [[id number]] Collected: 04/24/18 140 Specimen: Stool from Stool Updated: 04/25/18 08 Fecal Occult Blood NEGATIVE C Difficile Only [[id number]] (Abnormal) Collected: 04/24/18 140 Specimen: Stool Updated: 04/25/18816 GDH ANTIGEN POSITIVE (A) TOXIN A & B POSITIVE (A) C DIFF INTERPRETATION Positive for toxigenic C.difficile, active toxin present. Urine culture [[id number]] Collected: 04/23/18 1251 Specimen: Urine from Urine, [...] 1438 Date of Service: 04/27/181428 Status: Signed Potato Seed Cutter: Rick Rubio RN (Registered Nurse) [facility] Service: Ostomy Care Consult Note Hospital [...] colitis ASSESSMENT & PLAN Patient is from [facility] and has no movement of his [...] as he w ill be returning to [facility] at discharge. He has been placed [...] Notes by Lilian Grove MD at 04/27/18 140 Author: Lilian Grove MD Service: Neurology Author Type: Physician Filed: 04/27/18 4936 Date of Service: 04/27/18 1402 Status: Addendum Potato Seed Cutter: Lilian Grove MD (Physician) Related Notes: Original Note by Lilian Grove MD (Physician) filed at 04/27/18 9036 Subjective: Patient seen and examined. Matthias Lambert [...] tibody. Dr. Subramanian recommended recommended transfer to [facility] for further work up. I was called [...] underlying bleeding diathesis. CSF: WBC: 11 RBC: 74671 Total protein: 55 Glucose: 108 CSF Cx: NGX 4 Ds. JUAN: P MARCELL: -ve VDRL: NR MS panel: Elevated MBP (neurons destruction) and mildly elevated IgG index. Zero OCBs were observed in the CSF. However four (4) paired bands were observed in both the CSF and serum. Paired bands suggest an immune response to an inflammatory process outside the SAFETY INSPECTOR and are u nlikely to represent a SAFETY INSPECTOR demyelinating disease. HSV: -ve. WNV: -ve NMO [...] rel ated to inflammatory process outside the SAFETY INSPECTOR. Plan: 1- Telemetry bed with reasonable hydration. 2- Vital signs and neurocheck per ICU routine. Avoid hypotension. 3- For #1, adjust gabapentin and methocarbamol doses according to renal function and replac e electrolytes as needed. 4- For #2, no definite evidence of SAFETY INSPECTOR inflammatory process at this itme. He is [...] (none) Author Type: Physical Therapist Filed: 04/27/18 0295 Date of Service: 04/27/18 1028 Status: Signed Potato Seed Cutter: David Arnold PT (Physical Therapist) PHYSICAL THERAPY [...] patient's status; [facility] be [facility] ARNP - 04/27/2018 9:53 AM PST Progress Notes by DELANEY Cherry at 04/27/18952 Author: DELANEY Cherry Service: General Surgery Author Type: Nurse Practitione r Filed: 04/27/18954 Date of Service: 04/27/18952 Status: Signed Potato Seed Cutter: DELANEY Cherry (Nurse Practitioner) [facility] Service: Colon & Rectal Surgery Progress [...] Infusions lactated ringers 150 mL/hr at 04/27/18 0564 PRN Medications acetaminophen OR acetaminophen, calcium carbonate, [...] 04/27/1848 Date of Service: 04/27/18945 Status: Signed Potato Seed Cutter: Douglas Logan DO (Physician) Neurosurgery Progress Note [...] fusion C5-7. Patient unf ortunately is a retirement patient, and despite our insistence, was not offered postoperative foll owup and followed with the local retirement physician. 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 Patient was doing rather well for approximately 6 to 8 months until he started h aving intermittent tingling down his left hand in the C6 and C7 dermatomal region. This has returned and increased in nature. He was evaluated by his retirement physician, who correctly or dered a CT [...] few months ago. 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 Patient has been trying Neurontin; but because the retirement controlled the s ubstances, not been getting it all the time. Patient does have what appears to be a lot of medical concerns for someone in retirement. Admission Date - >04/19/2018 < - OR [...] 11/04/2016 Bilateral carpal tunnel syndrome 08/26/2016 Assessment/Plan Matthisa Lambert is a 42 y.o. male with [...] informed that he may be followed with surgical nurse practitioner neurosurgeon over weekend. Douglas Logan D.O Board Certified Neurosurgeon [facility] Neuroscience Center Office Mundo Granda MD - 04/27/2018 9:13 AM PST Progress Notes by Mundo Ghosh MD at 04/27/18912 Author: Mundo Ghosh MD Service: Hospitalist Author Type: Physician Filed: 04/27/18 1242 Date of Service: 04/27/18912 Status: Signed Potato Seed Cutter: Mundo Ghosh MD (Physician) [facility] Service: Hospitalist Progress Note Pt: Matthias Lambert AGE/SEX: 42 y.o. male ROOM: [address] [place] [address] : 1975 PCP: Per PT None ADMIT [...] Value Units Date/Time Anaerobic Culture W/Gram Stain [[id number]] Collected: 04/25/18 1635 Specimen: Abdomen Updated: 04/26/18 1327 Specimen Description ABDOMEN SPECIAL REQUESTS CX AND SENSITIVITY GRAM STAIN 2+ GRAM STAIN WBC'S SEEN GRAM STAIN NO EPITHELIAL CELLS SEEN GRAM STAIN NO ORGANISMS SEEN CULTURE NO GROWTH AT THIS TIME HSV 1/2 detect/diff by rtpcr : for antigen testing on CSF, newborns & immuno-compromised. [[id number]] Collected: 04/20/18 1600 Specimen: Cerebrospinal Fluid from CSF Updated: 04/25/18 2107 SOURCE CEREBROSPINAL FLUID HSV DNA Type 1 Negative HSV DNA Type 2 Negative VDRL, CSF [[id number]] Collected: 04/20/18 1600 Specimen: Cerebrospinal Fluid from Lumbar Puncture Updated: 04/25/18 1210 VDRL Quant, CSF Non Reactive Fecal occult blood (in house) [[id number]] Collected: 04/24/18 1405 Specimen: Stool from Stool Updated: 04/25/18 0817 Fecal Occult Blood NEGATIVE C Difficile Only [[id number]] (Abnormal) Collected: 04/24/18 1405 Specimen: Stool Updated: 04/25/18 0817 GDH ANTIGEN POSITIVE (A) TOXIN A & B POSITIVE (A) C DIFF INTERPRETATION Positive for toxigenic C.difficile, active toxin present. Urine culture [[id number]] Collected: 04/23/18 1251 Specimen: Urine from Urine, Catheter Updated: 04/24/18 1949 Specimen Description CATHETERIZED URINE CULTURE NO GROWTH Blood Culture Set 2 [[id number]] Collected: 04/23/18 0858 Specimen: Blood from Blood, peripheral draw Updated: 04/24/18 1214 Specimen Description BLOOD, PERIPHERAL DRAW SPECIAL REQUESTS LWRIST CULTURE NO GROWTH AT THIS TIME Blood Culture Set 1 [[id number]] Collected: 04/23/18 0851 Specimen: Blood from Blood, [...] MD, FACP 04/27/2018 9:13 AM Dictation software, [email or web address], used which may contain error for similar [...] 04/27/18645 Date of Service: 04/27/18645 Status: Signed Potato Seed Cutter: Antwon Barillas RN (Registered Nurse) Chart check complete. onver antonio Transaction, Provider Unknown - 04/26/2018 11:20 PM PST Nurse Progress Note by Antwon Barillas RN at 04/26/182319 Author: Antwon Barillas RN Service: (none) Author Type: Registered Nurse Filed: 04/27/18 0011 Date of Service: 02/26/19 2320 Status: Signed Potato Seed Cutter: Antwon Barillas RN (Registered Nurse) Pt noticeably [...] 04/26/181836 Date of Service: 04/26/181835 Status: Signed Potato Seed Cutter: Traci Porter RN (Registered Nurse) End of shift chart check complete Douglas Webb DO - 04/26/2018 4:46 PM PSTFormatting of this note might be different from the or iginal. Progress Notes by Douglas Logan DO at 04/26/181645 Author: Douglas Logan DO Service: Neurosurgery Author Type: Physician Filed: 04/26/181654 Date of Service: 04/26/181645 Status: Signed Potato Seed Cutter: Douglas Logan DO (Physician) Neurosurgery Progress Note [...] fusion C5-7. Patient unf ortunately is a retirement patient, and despite our insistence, was not offered postoperative foll owup and followed with the local retirement physician. 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 Patient was doing rather well for approximately 6 to 8 months until he started h aving intermittent tingling down his left hand in the C6 and C7 dermatomal region. This has returned and increased in nature. He was evaluated by his retirement physician, who correctly or dered a CT [...] few months ago. 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 Patient has been trying Neurontin; but because the retirement controlled the s ubstances, not been getting it all the time. Patient does have what appears to be a lot of medical concerns for someone in retirement. Admission Date - >04/19/2018 < - OR [...] improvement. Douglas Logan D.O Board Certified Neurosurgeon [facility] Neuroscience Center Office onversion Transactio n, Provider Unknown - 04/26/2018 2:45 PM PST Progress Notes by Anastasiya Díaz RD at 04/26/18 144 Author: Anastasiya Díaz RD Service: (none) Author Type: Registered Dietitian Filed: 04/26/18 1441 Date of Service: 04/26/18 1446 Status: Signed Potato Seed Cutter: Anastasiya Díaz RD (Registered Dietitian) 04/26/18 1437 Subjective Timepoint (LOS, NPO x 5) Pt [...] Estimated Energy Needs Total Energy Estimated Needs 8256-9160 kcal Method for Estimating Needs 25-30 kcal/kg [...] Disease Author Type: Physic ruthy Filed: 04/27/18 7544 Date of Service: 04/26/18 1341 Status: Signed Potato Seed Cutter: Oracio Villaseñor MD (Physician) [facility] Service: Infectious Diseases Progress Note Hospital [...] Value Units Date/Time Myelin basic protein, CSF [[id number]] (Abnormal) Collected: 04/20/18 1600 Specimen: Cerebrospinal Fluid from Lumbar Puncture Updated: 04/27/18 1316 Myelin Basic Prot, CSF >167.0 (H) ng/mL Anaerobic Culture W/Gram Stain [[id number]] Collected: 04/25/18 1635 Specimen: Abdomen Updated: 04/27/18 1124 Specimen Description ABDOMEN SPECIAL REQUESTS CX AND SENSITIVITY GRAM STAIN 2+ GRAM STAIN WBC'S SEEN GRAM STAIN NO EPITHELIAL CELLS SEEN GRAM STAIN NO ORGANISMS SEEN CULTURE NO GROWTH 2 DAYS HSV 1/2 detect/diff by rtpcr : for antigen testing on CSF, newborns & immuno-compromised. [[id number]] Collected: 04/20/18 1600 Specimen: Cerebrospinal Fluid from CSF Updated: 04/25/18 2107 SOURCE CEREBROSPINAL FLUID HSV DNA Type 1 Negative HSV DNA Type 2 Negative VDRL, CSF [[id number]] Collected: 04/20/18 1600 Specimen: Cerebrospinal Fluid from Lumbar Puncture Updated: 04/25/18 1210 VDRL Quant, CSF Non Reactive Fecal occult blood (in house) [[id number]] Collected: 04/24/18 1405 Specimen: Stool from Stool Updated: 04/25/18 0817 Fecal Occult Blood NEGATIVE C Difficile Only [[id number]] (Abnormal) Collected: 04/24/18 1405 Specimen: Stool Updated: 04/25/1817 GDH ANTIGEN POSITIVE (A) TOXIN A & B POSITIVE (A) C DIFF INTERPRETATION Positive for toxigenic C.difficile, active toxin present. Urine culture [[id number]] Collected: 04/23/18 1251 Specimen: Urine from Urine, [...] Notes by Lilian Grove MD at 04/26/18 3731 Author: Lilian Grove MD Service: Neurology Author Type: Physician Filed: 04/27/18 0902 Date of Service: 04/26/18 1313 Status: Addendum Potato Seed Cutter: Lilian Grove MD (Physician) Related Notes: Original Note by Lilian Grove MD (Physician) filed at 04/26/18 9055 Subjective: Patient seen and examined. Matthias Lambert [...] tibody. Dr. Subramanian recommended recommended transfer to [facility] for further work up. I was called [...] underlying bleeding diathesis. CSF: WBC: 11 RBC: 81979 Total protein: 55 Glucose: 108 CSF Cx: [...] Case Management by PARDEEP Dumont at 04/26/18 1127 Author: PARDEEP Dumont Service: (none) Author Type: Senior Pastor Filed: 04/26/18 7420 Date of Service: 04/26/181125 Status: Addendum Potato Seed Cutter: PARDEEP Dumont (Senior Pastor) Related Notes: Original Note by PARDEEP Dumont (Senior Pastor) filed at 04/26/18 1446 INTERNATIONAL TRADE TEACHER attended daily rounds with . Per MD, pt may be ready for discharge in 2-3 days. Pt wi ll discharge with a new ileocolostomy back to [facility]. [facility] [address] [place] [address] [facility] number for nurse to nurse report is [phone] / Addendum: CM spoke to Sweetie ([phone]) with [facility] regarding an update [...] Date of Service: 04/26/18 0948 Status: Attested Potato Seed Cutter: RAHEL Putnam (Physician Inspector Golf Ball - Certified) Cosigner: Elías alas MD at 04/26/18 1601 Attestation signed by Elías Joshi MD at 04/26/18 1601 Above note is reviewed and I agree with the assessment and plan as documented. I performed an interview and personally examined the patient. If any changes were needed, the note was updated and changes were discussed with the author. Feeling better today. Elías Joshi MD [facility] Gastroenterology 04/26/2018 [facility] Service: Gastroenterology Consult Progress Note Hospital [...] with IV antibiotics per ID recommendation [facility]HEL [facility] Gastroenterology 04/26/2018 Mundo Peng MD - 04/26/2018 8:58 AM PST Progress Notes by Mundo Ghosh MD at 04/26/18857 Author: Mundo hGosh MD Service: Hospitalist Author Type: Physician Filed: 04/26/18 1113 Date of Service: 04/26/18857 Status: Signed Potato Seed Cutter: Mundo Ghosh MD (Physician) [facility] Service: Hospitalist Progress Note Pt: Matthias Lambert AGE/SEX: 42 y.o. male ROOM: [address] [place] [address] : 1975 PCP: Per PT None ADMIT [...] antigen testing on CSF, newborns & immuno-compromised. [[id number]] Collected: 04/20/18 1600 Specimen: Cerebrospinal Fluid from CSF Updated: 04/25/18 210 SOURCE CEREBROSPINAL FLUID HSV DNA Type 1 Negative HSV DNA Type 2 Negative Anaerobic Culture W/Gram Stain [[id number]] Collected: 04/25/18 1635 Specimen: Abdomen Updated: 04/25/18 202 VDRL, CSF [[id number]] Collected: 04/20/18 1600 Specimen: Cerebrospinal Fluid from Lumbar Puncture Updated: 04/25/18 1210 VDRL Quant, CSF Non Reactive Fecal occult blood (in house) [[id number]] Collected: 04/24/18 1405 Specimen: Stool from Stool Updated: 04/25/18 0817 Fecal Occult Blood NEGATIVE C Difficile Only [[id number]] (Abnormal) Collected: 04/24/18 1405 Specimen: Stool Updated: 04/25/18 0817 GDH ANTIGEN POSITIVE (A) TOXIN A & B POSITIVE (A) C DIFF INTERPRETATION Positive for toxigenic C.difficile, active toxin present. Urine culture [[id number]] Collected: 04/23/18 1251 Specimen: Urine from Urine, Catheter Updated: 04/24/18 1949 Specimen Description CATHETERIZED URINE CULTURE NO GROWTH Blood Culture Set 2 [[id number]] Collected: 04/23/18 0858 Specimen: Blood from Blood, peripheral draw Updated: 04/24/18 1214 Specimen Description BLOOD, PERIPHERAL DRAW SPECIAL REQUESTS LWRIST CULTURE NO GROWTH AT THIS TIME Blood Culture Set 1 [[id number]] Collected: 04/23/18 0851 Specimen: Blood from Blood, peripheral draw Updated: 04/24/18 1214 Specimen Description BLOOD, PERIPHERAL DRAW SPECIAL REQUESTS RAC CULTURE NO GROWTH AT THIS TIME CSF culture w/gram stain [[id number]] Collected: 04/20/18 1600 Specimen: Cerebrospinal Fluid from [...] MD, FACP 04/26/2018 8:58 AM Dictation software, [email or web address], used which may contain error for similar [...] 04/26/1845 Date of Service: 04/26/18841 Status: Signed Potato Seed Cutter: DELANEY Cherry (Nurse Practitioner) [facility] Service: Colon & Rectal Surgery Progress [...] 04/27/1849 Date of Service: 04/26/18648 Status: Signed Potato Seed Cutter: Antwon Barillas RN (Registered Nurse) Chart check complete. onver antonio Transaction, Provider Unknown - 04/25/2018 8:10 PM PST Nurse Progress Note by Gisela Oneil RN at 04/25/182009 Author: Gisela Oneil RN Service: (none) Author Type: Registered Nurse Filed: 04/25/182011 Date of Service: 04/25/182009 Status: Signed Potato Seed Cutter: Gisela Oneil RN (Registered Nurse) Patient hesitant [...] at 04/25/18 1521 Author: DELANEY Hudson Service: Picker / Packer Author Type: Advanced Registered Nu rse Practitioner Filed: 04/25/18 173 Date of Service: 04/25/181520 Status: Signed Potato Seed Cutter: DELANEY Hudson (Advanced Registered Nurse Practitioner) [facility] Service: Picker / Packer Progress Note Matthias Lambert 42 [facility] [...] Notes by Nury Cordoba RPH at 04/25/18 1501 Author: Nury Cordoba RPH Service: Pharmacy Author Type: Pharmacist Filed: 04/25/18 1501 Date of Service: 04/25/181501 Status: Signed Potato Seed Cutter: Nury Cordoba RPH (Pharmacist) [facility] [...] Notes by Lilian Grove MD at 04/25/18 6133 Author: Lilian Grove MD Service: Neurology Author Type: Physician Filed: 04/26/18 8463 Date of Service: 04/25/18 5708 Status: Addendum Potato Seed Cutter: Lilian Grove MD (Physician) Related Notes: Original Note by Lilian Grove MD (Physician) filed at 04/26/18 7662 Subjective: Patient seen and examined. Matthias Lambert [...] tibody. Dr. Subramanian recommended recommended transfer to [facility] for further work up. Current complaints: Today [...] underlying bleeding diathesis. CSF: WBC: 11 RBC: 42777 Total protein: 55 Glucose: 108 CSF Cx: [...] Service: Hospitalist Author Type: Physician Filed: 04/25/18 6288 Date of Service: 04/25/18 1135 Status: Addendum Potato Seed Cutter: Mundo Ghosh MD (Physician) Related Notes: Original Note by Mundo Ghosh MD (Physician) filed at 04/25/18 1145 [facility] Service: Hospitalist Progress Note Pt: Matthias Lambert AGE/SEX: 42 y.o. male ROOM: [facility]91[facility] : 1975 PCP: Per PT None ADMIT [...] Units Date/Time Fecal occult blood (in house) [[id number]] Collected: 04/24/18 1405 Specimen: Stool from Stool Updated: 04/25/18816 Fecal Occult Blood NEGATIVE C Difficile Only [[id number]] (Abnormal) Collected: 04/24/18 1405 Specimen: Stool Updated: 04/25/18816 [facility] ANTIGEN POSITIVE (A) TOXIN A & B POSITIVE (A) C DIFF INTERPRETATION Positive for toxigenic C.difficile, active toxin present. Urine culture [[id number]] Collected: 04/23/18 1251 Specimen: Urine from Urine, Catheter Updated: 04/24/18 1949 Specimen Description CATHETERIZED URINE CULTURE NO GROWTH Blood Culture Set 2 [[id number]] Collected: 04/23/18 0858 Specimen: Blood from Blood, peripheral draw Updated: 04/24/18 1214 Specimen Description BLOOD, PERIPHERAL DRAW SPECIAL REQUESTS LWRIST CULTURE NO GROWTH AT THIS TIME Blood Culture Set 1 [[id number]] Collected: 04/23/18 0851 Specimen: Blood from Blood, peripheral draw Updated: 04/24/18 1214 Specimen Description BLOOD, PERIPHERAL DRAW SPECIAL REQUESTS RAC CULTURE NO GROWTH AT THIS TIME CSF culture w/gram stain [[id number]] Collected: 04/20/18 1600 Specimen: Cerebrospinal Fluid from [...] MD, FACP 04/25/2018 11:35 AM Dictation software, bounce.io, used which may contain error for similar [...] Author: PARDEEP Serrato Service: (none) Author Type: Senior Pastor Filed: 04/25/1857 Date of Service: 04/25/18954 Status: Signed Potato Seed Cutter: PARDEEP Serrato (Senior Pastor) 04/25/18 09 Discharge Planning Evaluation Admitting Diagnosis Cervical Myelopathy Anticipated Disposition Facility Type Other (Comment) ([facility]) INTERNATIONAL TRADE TEACHER p/c from Sweetie at [facility], regarding clinical update, asked how mu ch PT and OT would Pt receive when he returns back to Group Home. Sweetie to find out and call melody posada DCP: [facility] JANET DOCKERY Senior Pastor [phone] cell onver antonio Starraction, Provider Unknown - 04/25/2018 8:49 AM PST Nurse Progress Note by Traci Porter RN at 04/25/18 0875 Author: Traci Porter RN Service: (none) Author Type: Registered Nurse Filed: 04/25/18 1458 Date of Service: 04/25/1849 Status: Addendum Potato Seed Cutter: Traci Porter RN (Registered Nurse) Related Notes: Original Note by Traci Porter RN (Registered Nurse) filed at 04/25/18 1919 7973 Staff assist was pressed by officers, pt [...] 1228 Date of Service: 04/25/18825 Status: Attested Potato Seed Cutter: RAHEL Putnam (Physician Inspector Golf Ball - Certified) Cosigner: Elías alas MD at 04/25/18 1507 Attestation signed by Elías Joshi MD at 04/25/18 0669 Above note is reviewed and I agree with the assessment and plan as documented. I performed an interview and personally examined the patient. If any changes were needed, the note was updated and changes were discussed with the author. Surgery planning to take patient or OR. Will await results. Elías Joshi MD [facility] Gastroenterology 04/25/2018 [facility] Service: Gastroenterology Consult Progress Note Hospital [...] need for endoscopy at this point. [facility] Gastroenterology 04/25/2018 Douglas Webb D O - 04/25/2018 7:59 AM PST Progress Notes by Douglas Logan DO at 04/25/18 0759 Author: Douglas Logan DO Service: Neurosurgery Author Type: Physician Filed: 04/25/1804 Date of Service: 04/25/18758 Status: Addendum Potato Seed Cutter: Douglas Logan DO (Physician) Related Notes: Original [...] fusion C5-7. Patient unf rachtunately is a retirement patient, and despite our insistence, was not offered postoperative foll owup and followed with the local retirement physician. 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 Patient was doing rather well for approximately 6 to 8 months until he started h aving intermittent tingling down his left hand in the C6 and C7 dermatomal region. This has returned and increased in nature. He was evaluated by his retirement physician, who correctly or dered a CT [...] few months ago. 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 Patient has been trying Neurontin; but because the retirement controlled the s ubstances, not been getting it all the time. Patient does have what appears to be a lot of medical concerns for someone in retirement. Admission Date - >04/19/2018 < - OR [...] PT/OT Douglas Logan D.O Board Certified Neurosurgeon [facility] Office onversion Transactio n, Provider Unknown - 04/24/2018 6:20 PM PST Nurse Progress Note by Tatum Cota RN at 04/24/181819 Author: Tatum Cota RN Service: (none) Author Type: Registered Nurse Filed: 04/24/181837 Date of Service: 04/24/181819 Status: Signed Potato Seed Cutter: Tatum Cota RN (Registered Nurse) Patient had [...] Date of Service: 04/24/18 1607 Status: Signed Potato Seed Cutter: Gissell Powell RPH (Pharmacist) Pharmacy Management for [...] (none) Author Type: Physical Therapist Filed: 04/24/18 1729 Date of Service: 04/24/181537 Status: Signed Potato Seed Cutter: Vikas Garcia PT (Physical Therapist) PHYSICAL THERAPY TREATMENT NOTE PT Received On: 04/24/18 Reason for Treatment: Spinal surgery (cervical laminectomy and foraminotomy) Requires PT Follow Up: Yes Focus for Next Treatment: Formal Balance Assessment, Equipment Trial (when appropriate for balance test, trial FWW with pt.) Recommendations: Prior Setting, PT, OT Equipment Recommended: None Barriers to Discharge: Physical Deficits Impacting Functional [place] Plan Treatment/Interventions: Continue per Primary PT POC [...] pass stance foot Assistive Device: Other (Comment) (MOTOR EXPRESS CLERK on therapist) BALANCE Static Sitting Balance Static [...] Notes by Elías Joshi MD at 04/24/18 9564 Author: Elías Joshi MD Service: Gastroenterology Author Type: Physician Filed: 04/24/18 7649 Date of Service: 04/24/181451 Status: Signed Potato Seed Cutter: Elías Joshi MD (Physician) [facility] Service: Gastroenterology Consult Follow Up Note [...] status does not improve Elías Joshi MD [facility] Gastroenterology 04/24/2018 alMundo brady MD - 04/24/2018 9:57 AM PST Progress Notes by Mundo Ghosh MD at 04/24/18 30 Author: Mundo Ghosh MD Service: Hospitalist Author Type: Physician Filed: 04/24/18 8274 Date of Service: 04/24/18956 Status: Signed Potato Seed Cutter: Mundo Ghosh MD (Physician) [facility] Service: Hospitalist Progress Note Pt: Matthias [...] Value Units Date/Time CSF culture w/gram stain [[id number]] Collected: 04/20/18 1600 Specimen: Cerebrospinal Fluid from CSF Updated: 04/24/18 0816 Specimen Description CEREBROSPINAL FLUID GRAM STAIN 3+ GRAM STAIN WBC'S SEEN GRAM STAIN NO ORGANISMS SEEN CULTURE NO GROWTH 4 DAYS Urine culture [[id number]] Collected: 04/23/18 1251 Specimen: Urine from Urine, Catheter Updated: 04/23/18 1937 Blood Culture Set 2 [[id number]] Collected: 04/23/18 0858 Specimen: Blood from Blood, peripheral draw Updated: 04/23/18 1033 Blood Culture Set 1 [[id number]] Collected: 04/23/18 0851 Specimen: Blood from Blood, peripheral draw Updated: 04/23/18 1033 MARCELL Prep - Fungal stain, CSF [[id number]] Collected: 04/20/18 1600 Specimen: Cerebrospinal Fluid from [...] MD, FACP 04/24/2018 9:57 AM Dictation software, bounce.io, used which may contain error for similar [...] 0649 Date of Service: 04/23/182352 Status: Signed Potato Seed Cutter: Kortney Negron RN (Registered Nurse) 0850 took over patient care for Renée Cotton RN Chart check complete. Kortney Negron RN onver antonio Transaction, Provider Unknown - 04/23/2018 6:31 PM PST Nurse Progress Note by Tatum Cota RN at 04/23/181830 Author: Tatum Cota RN Service: (none) Author Type: Registered Nurse Filed: 04/23/181834 Date of Service: 02/23/19 1831 Status: Signed Potato Seed Cutter: Tatum Cota RN (Registered Nurse) Patient had [...] Service: Pharmacy Author Type: Pharmacist Filed: 04/23/18 3477 Date of Service: 04/23/18 1256 Status: Addendum Potato Seed Cutter: Jurgen Bowen RPH (Pharmacist) Related Notes: Original [...] Date of Service: 04/23/18 1100 Status: Signed Potato Seed Cutter: Leigh Ann Hicks RN (Registered Nurse) Sepsis nurse following Douglas Webb DO - 04/23/2018 10:35 AM PSTFormatting of this note might be different from the or iginal. Progress Notes by Douglas Logan DO at 04/23/18 1035 Author: Douglas Logan DO Service: Neurosurgery Author Type: Physician Filed: 04/23/18 1247 Date of Service: 04/23/18 1035 Status: Addendum Potato Seed Cutter: Douglas Logan DO (Physician) Related Notes: Original [...] fusion C5-7. Patient unf ortunately is a retirement patient, and despite our insistence, was not offered postoperative foll owup and followed with the local retirement physician. 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 Patient was doing rather well for approximately 6 to 8 months until he started h aving intermittent tingling down his left hand in the C6 and C7 dermatomal region. This has returned and increased in nature. He was evaluated by his retirement physician, who correctly or dered a CT [...] few months ago. 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 Patient has been trying Neurontin; but because the retirement controlled the s ubstances, not been getting it all the time. Patient does have what appears to be a lot of medical concerns for someone in retirement. Admission Date - >04/19/2018 < - OR [...] time. Douglas Logan D.O Board Certified Neurosurgeon [facility] Office CT imaging of abdomen with [...] elevated. Douglas Logan D.O Board Certified Neurosurgeon [facility] Office onversion Transactio n, Provider Unknown - 04/23/2018 9:43 AM PST Case Management by PARDEEP Serrato at 04/23/18942 Author: PARDEEP Serrato Service: (none) Author Type: Senior Pastor Filed: 04/23/1846 Date of Service: 04/23/18942 Status: Addendum Potato Seed Cutter: PARDEEP Serrato (Senior Pastor) Related Notes: Original Note by PARDEEP Serrato (Senior Pastor) filed at 04/23/1845 04/23/18899 Discharge Planning Evaluation Admitting Diagnosis Cervical Myelopathy Anticipated Disposition Facility Type Other (Comment) [facility] INTERNATIONAL TRADE TEACHER approached by Josi MORATAYA regarding discharge planning. Dr. Chaudhry does not recommend IPR admission, recommends outpatient PT and OT. INTERNATIONAL TRADE TEACHER followed up with Sweetie Membreno RN coordinator for [facility] asked if they ca n provide outpatient PT and OT when he returns back to the [facility] system. Awaiting co nfirmation. DCP: [facility] ([facility] [address], [place] [address] - [facility] number for nurse to nurse report is [phone] / - when medically ready. Social Bernardo SERRATO [phone] cell onver antonio Transaction, Provider Unknown - 04/23/2018 9:11 AM PST Therapy Progress Note by Vikas Garcia PT at 04/23/18 09 Author: Vikas Garcia PT Service: (none) Author Type: Physical Therapist Filed: 04/23/18 1026 Date of Service: 04/23/18910 Status: Signed Potato Seed Cutter: Vikas Garcia PT (Physical Therapist) PHYSICAL THERAPY TREATMENT NOTE PT Received On: 04/23/18 Reason for Treatment: Spinal surgery (cervical laminectomy and foraminotomy) Requires PT Follow Up: Yes Focus for Next Treatment: Formal Balance Assessment Recommendations: Prior Setting Equipment Recommended: None Barriers to Discharge: Physical Deficits Impacting Functional [place], Self-care Defic its Impacting Functional [place], Cognitive Deficits Impacting Functional [place] Plan Treatment/Interventions: Continue per Primary PT POC [...] 1026 Date of Service: 04/23/18814 Status: Signed Potato Seed Cutter: Mundo Ghosh MD (Physician) [facility] Service: Hospitalist Progress Note Pt: Matthias [...] Value Units Date/Time CSF culture w/gram stain [[id number]] Collected: 04/20/18 1600 Specimen: Cerebrospinal Fluid from CSF Updated: 04/22/18 1136 Specimen Description CEREBROSPINAL FLUID GRAM STAIN 3+ GRAM STAIN WBC'S SEEN GRAM STAIN NO ORGANISMS SEEN CULTURE NO GROWTH 2 DAYS MARCELL Prep - Fungal stain, CSF [[id number]] Collected: 04/20/18 1600 Specimen: Cerebrospinal Fluid from CSF Updated: 04/21/18 1255 Specimen Description CEREBROSPINAL FLUID CULTURE NO YEAST OR FUNGAL ELEMENTS SEEN CSF cell count with differential [[id number]] (Abnormal) Collected: 04/20/18 1600 Specimen: Cerebrospinal Fluid from Lumbar Puncture Updated: 04/20/182026 COLOR PINK APPEARANCE HAZY Tube Number, CSF 3 CSF RBC 17,675 (H) /mm3 CSF WBC 11 (H) /mm3 NEUTROPHILS 35 % LYMPHOCYTES 6 % CELLS COUNTED 41 Protein, CSF [[id number]] (Abnormal) Collected: 04/20/18 1600 Specimen: Cerebrospinal Fluid from Lumbar Puncture Updated: 04/20/182004 CSF TOTAL PROTEIN 55 (H) mg/dL Glucose, CSF [[id number]] (Abnormal) Collected: 04/20/18 1600 Specimen: Cerebrospinal Fluid from Lumbar Puncture Updated: 04/20/182004 CSF GLUCOSE 108 (H) mg/dL VDRL, CSF [[id number]] Collected: 04/20/18 1600 Specimen: Cerebrospinal Fluid from Lumbar Puncture Updated: 04/20/181856 CSF IgG index [[id number]] Collected: 04/20/18 1600 Specimen: Cerebrospinal Fluid from Lumbar Puncture Updated: 04/20/181856 Myelin basic protein, CSF [[id number]] Collected: 04/20/18 1600 Specimen: Cerebrospinal Fluid from Lumbar Puncture Updated: 04/20/181856 Angiotensin converting enzyme, CSF [[id number]] Collected: 04/20/181599 Specimen: Cerebrospinal Fluid from Lumbar Puncture Updated: 04/20/181856 HSV 1/2 detect/diff by rtpcr : for antigen testing on CSF, newborns & immuno-compromised. 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 Also having leukocytosis and tachycardia. I doubt [...] MD, FACP 04/23/2018 8:15 AM Dictation software, bounce.io, used which may contain error for similar [...] 04/23/18744 Date of Service: 04/23/18744 Status: Signed Potato Seed Cutter: Antwon Barillas RN (Registered Nurse) Chart check complete. onver antonio Transaction, Provider Unknown - 04/22/2018 6:56 PM PST Nurse Progress Note by Tatum Cota RN at 04/22/181855 Author: Tatum Cota RN Service: (none) Author Type: Registered Nurse Filed: 04/22/181856 Date of Service: 04/22/181855 Status: Signed Potato Seed Cutter: Tatum Cota RN (Registered Nurse) Patient had [...] Case Management by PARDEEP Serrato at 04/22/18 1974 Author: PARDEEP Serrato Service: (none) Author Type: Senior Pastor Filed: 04/22/18 3973 Date of Service: 04/22/18 2388 Status: Signed Potato Seed Cutter: PARDEEP Serrato (Senior Pastor) 04/22/18 1300 Discharge Planning Evaluation Admitting Diagnosis Cervical Myelopathy Anticipated Disposition Facility Type Inpatient Rehabilitation INTERNATIONAL TRADE TEACHER p/c with Dr. Logan who states due to right arm paralysis s/p Cervical Laminectomy surg sage and needs a rehab stay at our Inpatient Rehabilitation Unit before returning to the [facility] on. Dr. Colindres states if Pt does not get accepted to [facility], the patient may stay in hospital f or an extended amount time to work with Physical Therapy. INTERNATIONAL TRADE TEACHER communicated with Ana Membreno, Coordinator with [facility] cell) regarding Inpatient Rehab consult with Dr. Wing Chaudhry. Pt is from [facility] in [facility]. [facility] ([facility]), [address] [place] [address] [facility] number for nurse to nurse report is [phone] / [facility]/[place] [facility] Hospitalization Instructions o Admission Notification: Ana Membreno RN, BSN |Facility Proposal Editor| [facility] [phone] Cell |[phone] | [address] | [place] [address] o Discharge Process: o Notify the [facility] Proposal Editor of anticipated discharge o For all inpatients and ambulatory surgery patients call accepting [facility]. (number s below) o Discharging MD to call [facility] provider for medical handover if MD feels there is pertinent information that needs to be discussed with the PCP. Contact information for the PCP can be obtained by calling the institution numbers below. o Nurse telephone report to receiving [facility] clinical staff. [facility] ([facility]), [address] [place] [address] [facility] number for nurse to nurse report is [phone] / o Chest pain patients that have ruled out go directly back to their correctional facility o If you have any questions or concerns, please call the [facility] Proposal Editor o Medical records to transfer back to [...] list of medications that comprise the offic [facility] formulary. This formulary is dynamic and was developed in collaboration with its Surg Rn. The current [facility] formulary can be found on [facility] s website and [facility] link: [email or web address]. o The [facility] Proposal Editor is available to assist with formulary questions regarding discharge medications Claims: Appeals [facility] C/O [facility] APPEALS-[facility] [address] [address] [address] [place] [address] [place], [place] [address] (Claims paid per [facility] contract) DCP: Pending [facility] Inpatient Rehab Unit JANET DOCKERY, Senior Pastor [phone] cell Mundo Peng MD - 04/22/2018 9:20 AM PST Progress Notes by Mundo Ghosh MD at 04/22/18919 Author: Mundo Ghosh MD Service: Hospitalist Author Type: Physician Filed: 04/22/18 1217 Date of Service: 04/22/18919 Status: Signed Potato Seed Cutter: Mundo Ghosh MD (Physician) [facility] Service: Hospitalist Progress Note Pt: Matthias Lambert AGE/SEX: 42 y.o. male ROOM: [address] [place] [address] : 1975 PCP: Per PT None ADMIT [...] Value Units Date/Time CSF culture w/gram stain [[id number]] Collected: 04/20/18 1600 Specimen: Cerebrospinal Fluid from CSF Updated: 04/21/18 1743 Specimen Description CEREBROSPINAL FLUID GRAM STAIN 3+ GRAM STAIN WBC'S SEEN GRAM STAIN NO ORGANISMS SEEN CULTURE NO GROWTH AT THIS TIME MARCELL Prep - Fungal stain, CSF [[id number]] Collected: 04/20/18 1600 Specimen: Cerebrospinal Fluid from CSF Updated: 04/21/18 1255 Specimen Description CEREBROSPINAL FLUID CULTURE NO YEAST OR FUNGAL ELEMENTS SEEN CSF cell count with differential [[id number]] (Abnormal) Collected: 04/20/18 1600 Specimen: Cerebrospinal Fluid from Lumbar Puncture Updated: 04/20/182026 COLOR PINK APPEARANCE HAZY Tube Number, CSF 3 CSF RBC 17,675 (H) /mm3 CSF WBC 11 (H) /mm3 NEUTROPHILS 35 % LYMPHOCYTES 6 % CELLS COUNTED 41 Protein, CSF [[id number]] (Abnormal) Collected: 04/20/181599 Specimen: Cerebrospinal Fluid from Lumbar Puncture Updated: 04/20/182004 CSF TOTAL PROTEIN 55 (H) mg/dL Glucose, CSF [[id number]] (Abnormal) Collected: 04/20/181599 Specimen: Cerebrospinal Fluid from Lumbar Puncture Updated: 04/20/182004 CSF GLUCOSE 108 (H) mg/dL VDRL, CSF [[id number]] Collected: 04/20/181599 Specimen: Cerebrospinal Fluid from Lumbar Puncture Updated: 04/20/181856 CSF IgG index [[id number]] Collected: 04/20/181599 Specimen: Cerebrospinal Fluid from Lumbar Puncture Updated: 04/20/181856 Myelin basic protein, CSF [[id number]] Collected: 04/20/181599 Specimen: Cerebrospinal Fluid from Lumbar Puncture Updated: 04/20/181856 Angiotensin converting enzyme, CSF [[id number]] Collected: 04/20/181599 Specimen: Cerebrospinal Fluid from Lumbar Puncture Updated: 04/20/181856 HSV 1/2 detect/diff by rtpcr : for antigen testing on CSF, newborns & immuno-compromised. [[id number]] Collected: 04/20/181599 Specimen: Cerebrospinal Fluid from CSF Updated: 04/20/181856 Neuromyelitis optica IgG, CSF [[id number]] Collected: 04/20/18 1600 Updated: 04/20/18 165 MRSA by PCR [[id number]] Collected: 04/19/182108 Specimen: Nasopharyngeal from Nares(Nose) Updated: [...] MD, FACP 04/22/2018 9:20 AM Dictation software, bounce.io, used which may contain error for similar [...] 04/23/1835 Date of Service: 04/22/18732 Status: Signed Potato Seed Cutter: Douglas Logan DO (Physician) Neurosurgery Progress Note [...] trapeziu s muscle spasm. Clinic Visit 04/19/2018: Mtathias Lambert is a 42 y.o. male returns to neurosurgery clinic with N eurosurgical followup status post anterior cervical diskectomy and fusion C5-7. Patient unf ortunately is a retirement patient, and despite our insistence, was not offered postoperative foll owup and followed with the local retirement physician. 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 Patient was doing rather well for approximately 6 to 8 months until he started h aving intermittent tingling down his left hand in the C6 and C7 dermatomal region. This has returned and increased in nature. He was evaluated by his retirement physician, who correctly or dered a CT [...] few months ago. 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 Patient has been trying Neurontin; but because the retirement controlled the s ubstances, not been getting it all the time. Patient does have what appears to be a lot of medical concerns for someone in retirement. Admission Date - >04/19/2018 < - OR [...] time. Douglas Logan D.O Board Certified Neurosurgeon [facility] Neuroscience Center Office Kerry Clay MD - 04/21/2018 2:07 PM PST Progress Notes by Kerry Subramanian MD at 04/21/18 2301 Author: Kerry Subramanian MD Service: Neurology Author Type: Physician Filed: 04/21/18 1610 Date of Service: 04/21/18 1407 Status: Signed Potato Seed Cutter: Kerry Subramanian MD (Physician) [facility] Service: Neurology Follow up Note Date [...] at this poin t, traumatic tap vs SAFETY INSPECTOR hemorrhage. The rest of the CSF study [...] at this poin t, traumatic tap vs SAFETY INSPECTOR hemorrhage. The rest of the CSF studies [...] He may benefit from additional opinion from [facility]. Current management per Dr. Logan and Picker / Packer. Please call neuro on-call for any new [...] Service: Neurosurgery Author Type: Physician Filed: 04/21/18 0545 Date of Service: 04/21/18 1401 Status: Signed Potato Seed Cutter: Douglas Logan DO (Physician) Neurosurgery Progress Note [...] fusion C5-7. Patient unf rachtunately is a retirement patient, and despite our insistence, was not offered postoperative foll owup and followed with the local retirement physician. 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 Patient was doing rather well for approximately 6 to 8 months until he started h aving intermittent tingling down his left hand in the C6 and C7 dermatomal region. This has returned and increased in nature. He was evaluated by his retirement physician, who correctly or dered a CT [...] few months ago. 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 Patient has been trying Neurontin; but because the retirement controlled the s ubstances, not been getting it all the time. Patient does have what appears to be a lot of medical concerns for someone in retirement. Admission Date - >04/19/2018 < - OR [...] time. Douglas Logan D.O Board Certified Neurosurgeon [facility] Neuroscience Center Office onversion Transactprincess n, Provider Unknown - 04/21/2018 10:51 AM PST Case Management by PARDEEP Nuñez at 04/21/18 1051 Author: PARDEEP Nuñez Service: (none) Author Type: Senior Pastor Filed: 04/21/18 1056 Date of Service: 04/21/18 105 Status: Signed Potato Seed Cutter: PARDEEP Nuñez (Senior Pastor) PARDEEP CM attended morning rounds. Followed by Dr. Colindres and carlos. Madelyn Roque ARNP - 04/21/2018 7:27 AM PSTFormatting of this note might be different from th e original. Progress Notes by DELANEY Robb at 04/21/18726 Author: DELANEY Robb Service: Picker / Packer Author Type: Advanced Registered Korina se Practitioner Filed: 04/21/18 8675 Date of Service: 04/21/18726 Status: Signed Potato Seed Cutter: DELANEY Robb (Advanced Registered Nurse Practitioner) [facility] Service: Picker / Packer Progress Note [facility] 42 [facility] [...] Date of Service: 04/20/18 1630 Status: Signed Potato Seed Cutter: Kerry Subramanian MD (Physician) [facility] Service: Neurology Follow up Note Date [...] Notes by Douglas Logan DO at 04/20/18 7054 Author: Douglas Logan DO Service: Neurosurgery Author Type: Physician Filed: 04/20/18 1515 Date of Service: 04/20/18 1504 Status: Signed Potato Seed Cutter: Douglas Logan DO (Physician) Neurosurgery Progress Note [...] fusion C5-7. Patient rolan delucaunately is a retirement patient, and despite our insistence, was not offered postoperative foll owup and followed with the local retirement physician. 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 Patient was doing rather well for approximately 6 to 8 months until he started h aving intermittent tingling down his left hand in the C6 and C7 dermatomal region. This has returned and increased in nature. He was evaluated by his retirement physician, who correctly or dered a CT [...] few months ago. 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 Patient has been trying Neurontin; but because the retirement controlled the s ubstances, not been getting it all the time. Patient does have what appears to be a lot of medical concerns for someone in retirement. Admission Date - >04/19/2018 < - OR [...] time. Douglas Logan D.O Board Certified Neurosurgeon [facility] Neuroscience Center Office onversion Transactio n, Provider Unknown - 04/20/2018 2:58 PM PST Progress Notes by Jurgen Bowen RPH at 04/20/181457 Author: Jurgen Bowen RPH Service: Pharmacy Author Type: Pharmacist Filed: 04/20/181457 Date of Service: 04/20/181457 Status: Signed Potato Seed Cutter: Jurgen Bowen RPH (Pharmacist) Renal Dosing Monitoring: [...] Author: PARDEEP Nuñez Service: (none) Author Type: Senior Pastor Filed: 04/20/18 1134 Date of Service: 04/20/181126 Status: Signed Potato Seed Cutter: PARDEEP Nuñez (Senior Pastor) PARDEEP CM attended morning rounds. C7 fusion with Dr. Colindres. Pt is a prisoner from [facility]. Madelyn Roque ARNP - 04/20/2018 9:00 AM PSTFormatting of this note might be different from th e original. Progress Notes by DELANEY Robb at 04/20/18 0900 Author: DELANEY Robb Service: Picker / Packer Author Type: Advanced Registered Korina se Practitioner Filed: 04/20/181931 Date of Service: 04/20/18899 Status: Signed Potato Seed Cutter: DELANEY Robb (Advanced Registered Nurse Practitioner) [facility] Service: Picker / Packer Progress Note [facility] Lambert 42 [facility] [...] Date of Service: 04/19/18 1104 Status: Addendum Potato Seed Cutter: Oswaldo Paula RN (Registered Nurse) Related Notes: Original Note by Oswaldo Paula RN (Registered Nurse) filed at 04/19/18 0720 11:05 AM Patient able to move right [...] Note by Isabella Bruno RN at 04/19/18 9441 Author: Isabella Bruno RN Service: (none) Author Type: Registered Nurse Filed: 04/19/18 0806 Date of Service: 04/19/18 0750 Status: Signed Potato Seed Cutter: Isabella Bruno RN (Registered Nurse) Preformed the [...] at | | | | | | [facility];[address];[place] [address] | | | | + + + [...] EXTERNAL | | | | performed at [facility] | | LAB | | | | [place] [address];[place] | | | | | | [address] | | | | + + + [...] EXTERNAL | | | | performed at [facility];[address] | | LAB | | | | [facility];[place], [place] | | | | | | [address] | | | | + + + [...] | | | | | | MDRD IDAR traceable | | | | | | equation.Testing | | | | | | performed at [facility];[address] | | | | | | [facility];[place], [place] | | | | | | [address] | | | | + + + [...] LAB | | | | performed at [facility], [address] | | | | | [facility], | | | | | | [place] [address] | | | | | | | [...] | | | | | [place] [address] | | | | + + + [...] EXTERNAL | | | | performed at [facility], [address] | | LAB | | | | [address], | | | | | | [place] [address] | | | | + + + [...] | | | | | performed at [facility], [address] | | | | | | [facility], | | | | | | [place] [address] | | | | + + + [...] at | | | | | | [facility], [address] [place] [address] | | | | | | [place] | | | | | | [address] | | | | + + + [...] EXTERNAL | | | | performed at [facility], [address] | | LAB | | | | [place], | | | | | | [place] [address] | | | | + + + [...] | | | | | [place] [address] | | | | + + + [...] | | | | | performed at [facility], [address] | | | | | | [facility], | | | | | | [place] [address] | | | | + + + [...] at | | | | | | [facility], [address] | | | | | | [place] | | | | | | [address] | | | | + + + [...] EXTERNAL | | | | performed at [facility], [address] | | LAB | | | | [place], | | | | | | [place] [address] | | | | + + + [...] EXTERNAL | | | | performed at [facility], [address] | | LAB | | | | [place], | | | | | | [place] [address] | | | | + + + [...] | | | | | performed at [facility], [address] | | | | | | [facility], | | | | | | [place] [address] | | | | + + + [...] at | | | | | | [facility], [address] [place] [address] | | | | | | [facility], [place] | | | | | | [address] | | | | + + + [...] EXTERNAL | | | | performed at [facility], [address] | | LAB | | | | [place], | | | | | | [place] [address] | | | | + + + [...] | | | | | [place] [address] | | | | + + + [...] | | | | | performed at [facility], [address] | | | | | | [place] [address], | | | | | | [place] [address] | | | | + + + [...] at | | | | | | [facility];[address];[place] [address] | | | | + + + [...] EXTERNAL | | | | performed at [facility] | | LAB | | | | [place] | | | | | | [address] | | | | + + + [...] EXTERNAL | | | | performed at [facility];[address] | | LAB | | | | [facility];[place], [place] | | | | | | [address] | | | | + + + [...] | | | | | | MDRD IDAR traceable | | | | | | equation.Testing | | | | | | performed at [facility];[address] | | | | | | [facility];[place], [place] | | | | | | [address] | | | | + + + [...] at | | | | | | [facility], [address] [place] [address] | | | | | | [place] | | | | | | [address] | | | | + + + [...] | | | | | [place] [address] | | | | + + + [...] EXTERNAL | | | | performed at [facility], [address] | | LAB | | | | [place] [address], | | | | | | [place] [address] | | | | + + + [...] W | | | | | | [facility], | | | | | | [place] [address] | | | | + + + [...] EXTERNAL | | | | performed at [facility];[address] | | LAB | | | [address];[place], [place] | | | | | | [address] | | | | + + + [...] nodes are grossly identified. | | | 8Th Grade Mathematics Teacher sections are submitted in fourteen cassettes. | [...] | | | interpretation was performed by [facility] | | | [address] [address] (Medical | | | Director: Raji Palumbo M.D.; CLIA#: [id number]). The technical | | | component was performed by [facility], [address] [place] [address], | | | [facility] [address] (Cake Inspector: Basia De La Garza MD; CLIA# [id number]). | | | Diagnostician: Raji Palumbo MD [...] | | | | | L, [address] [facility] | | | | | | [place] | | | | | | [address] | | | | + + + [...] | | | | | performed at [facility], [address] | | | | | | Kellie [facility], | | | | | | [place] [address] | | | | + + + [...] | | | | | performed at [facility], [address] | | | | | | [place], | | | | | | [place] [address] | | | | + + + [...] | | | | | performed at [facility], [address] | | | | | | [facility], | | | | | | [place] [address] | | | | + + + [...] EXTERNAL | | | | performed at [facility];888 | mmol/L | LAB | | | | [address];[place], [place] | | | | | | [address] | | | | + + + [...] EXTERNAL | | | | performed at [facility];888 | mmol/L | LAB | | | | [address];[place], [place] | | | | | | [address] | | | | + + + [...] | | | | | | at [facility];[address] [facility] | | | | | | [facility];[place] [address] | | | | + + + [...] at | | | | | | [facility], [address] [facility] | | | | | | [place] | | | | | | [address] | | | | + + + [...] EXTERNAL | | | | performed at [facility], [address] | | LAB | | | | [place], | | | | | | [place] [address] | | | | + + + [...] EXTERNAL | | | | performed at [facility], [address] | | LAB | | | | [place] [address], | | | | | | [place] [address] | | | | + + + [...] | | | | | performed at [facility], [address] | | | | | | [place] [address], | | | | | | [place] [address] | | | | + + + [...] C.difficile, active toxin present. Testing performed at [facility];[address] [place] [address] | | | [place] [address] | | + + + + +---------+ [...] | EXTERNAL LAB | | performed at [facility];[address] [place] [address];[place] [address] | | + + + + +---------+ [...] EXTERNAL | | | | performed at [facility];888 | mmol/L | LAB | | | | [place] | | | | | | [address] | | | | + + + [...] [place] | | | | | | [address] | | | | + + + [...] EXTERNAL | | | | performed at [facility], [address] | | LAB | | | | [address], | | | | | | [place] [address] | | | | + + + [...] | | | | | [place] [address] | | | | + + + [...] | | | | | performed at [facility], [address] | | | | | | [facility], | | | | | | [place] [address] | | | | + + + [...] EXTERNAL | | | | performed at [facility];888 | mmol/L | LAB | | | | [place] | | | | | | [address] | | | | + + + [...] EXTERNAL | | | | performed at [facility];[address] | mmol/L | LAB | | | | [place] | | | | | | [address] | | | | + + + [...] EXTERNAL | | | | performed at [facility], [address] | | LAB | | | | [place], | | | | | | [place] [address] | | | | + + + [...] - 1.030 | EXTERNAL | | | [place] | | | LAB | | + [...] | | | Urine | performed at [facility], [address] | | LAB | | | | [address] | | | | | | [place] [address] | | | | + + + [...] | | | | | | at [facility];[address] [place] [address] | | | | | | [facility];[place] [address] | | | | + + + [...] LAB | | | | performed at [facility];[address] | | | | | | [place] | | | | | | [address] | | | | + + + [...] EXTERNAL | | | | performed at [facility];[address] | | LAB | | | | [place] | | | | | | [address] | | | | + + + [...] [place] | | | | | | [address] | | | | + + + [...] EXTERNAL | | | | performed at [facility], [address] | | LAB | | | | [place], | | | | | | [place] [address] | | | | + + + [...] | | | | | [place] [address] | | | | + + + [...] | | | | | performed at [facility], [address] | | | | | | [place], | | | | | | [place] [address] | | | | + + + [...] LAB | | | | performed at [facility], [address] | | | | | | [place], | | | | | | [place] [address] | | | | | | | [...] EXTERNAL | | | | performed at [facility], [address] | | LAB | | | | [place], | | | | | | [place] [address] | | | | + + + [...] EXTERNAL | | | | performed at [facility], [address] | | LAB | | | | [place], | | | | | | [place] [address] | | | | + + + [...] | | | | | performed at [facility], [address] | | | | | | [facility], | | | | | | [place] [address] | | | | + + + [...] | | | | T[facility], [address] [facility] | | | | | | [place] | | | | | | [address] | | | | + + + [...] EXTERNAL | | | | performed at [facility];[address] | mmol/L | LAB | | | | [address];[place], [place] | | | | | | [address] | | | | + + + [...] EXTERNAL | | | | performed at [facility];[address] | | LAB | | | | [place] | | | | | | [address] | | | | + + + [...] EXTERNAL | | | | performed at [facility];[address] | | LAB | | | | [address];[place], [place] | | | | | | [address] | | | | + + + [...] | | | | | performed at [facility];[address] | | | | | | [facility];[place], [place] | | | | | | [address] | | | | + + + [...] See Compliance Statement B: | | | [email or web address]/[email or web address] Testing performed at [facility], [address] | | | [facility], [place] [address] | | + + + + +---------+ + + | Performing | Address | City/State/[facility] | Phone Number | | Organization [...] EXTERNAL LAB | | Testing performed at [facility];[address] [place] [address];[place] [address] HSV DNA | | | Type 1 Negative Reference range: | | | Negative HSV DNA Type 2 Negative | | | Reference range: Negative This test was developed and its performance | | | characteristics determined by [facility]. It has not been | | | [...] [facility], [address] | | | [place] [address] | | + + + + +---------+ [...] range: 0.0 to 8.6 Testing performed by [address] | | | [place] [address] ALBUMIN,CSF | | | 34 Reference range: 11 to 48 Testing performed | | | by [facility] [address] [place] [address] IgG | | | 917 Reference range: 700 | | | to 1600 Testing performed at [facility], [facility] [address], [place] [address] | | | [place] [address] Albumin 3.8 | | | Reference range: 3.5 to 5.5 Unit: g/dL Testing performed at | | | [facility], [address], [place] [address], [facility] [address] CSF, IGG/ALB, | | | RATIO 0.16 Reference range: 0.00 to | | | 0.25 CSF/SERUM INDEX 0.7 | | | Reference range: 0.0 to 0.7 Testing performed by [address] | | | [place] [address] | | + + + + +---------+ [...] CSF 3 CSF RBC | | | [address] High CSF WBC | | | 11 High NEUTROPHILS | | | 35 LYMPHOCYTES | | | 6 CELLS COUNTED | | | 41 Testing performed at [facility];[address] | | | [place] [address] | | + + + + +---------+ [...] | range: Non Dina:<1:1 Testing performed by [facility], [address], | | | [place] [address] | | + + + + +---------+ [...] EXTERNAL LAB | | Testing performed at [facility];[address] [facility];[place] [address] | | + + + + +---------+ [...] only by the assay's | | | president trust company. The performance characteristics of this product have | | | not been established. Results should not be used as a diagnostic | | | procedure without confirmation of the diagnosis by another medically | | | established diagnostic product or procedure. Testing performed by | | | [facility], [address] [facility] [address] | | + + + + +---------+ [...] EXTERNAL LAB | | Testing performed at [facility];[address] [facility];[place] [address] | | + + + + +---------+ [...] PERFORMED | EXTERNAL LAB | | TEST: [id number] JUAN, CSF Shared serum was thawed for other testing, and | | | could not be used. Lorin Bess notified testing not performed. | | | 04/28/2018 Testing performed at [facility], [address] [facility], | | | [place] [address] | | + + + + +---------+ [...] LAB | | | | performed by [facility], | | | | | | [address], | | | | | | [facility] [address] | | | | + + + + + + | Albumin, | 31Comment: Reference | mg/dL | EXTERNAL | | | CSF | range: 11 to 48Testing | | LAB | | | | performed by [facility], | | | | | | [address], | | | | | | [facility] [address] | | | | + + + + + + | Immunoglobu | 819Comment: Reference | mg/dL | EXTERNAL | | | dragan IgG | range: 700 to | | LAB | | | | 1600Testing performed at | | | | | | [facility], [address], | | | | | | [address] | | | | | | [address] | | | | + + + + + + | Albumin | 3.2 (L)Comment: | g/dL | EXTERNAL | | | | Reference range: 3.5 to | | LAB | | | | 5.5Testing performed at | | | | | | [facility], [address], | | | | | | [place] [address], [facility] | | | | | | [address] | | | | + + + [...] a | | | | | | SAFETY INSPECTOR demyelinating | | | | | | [...] Pathol | | | | | | 120([phone],2002].Dereje | | | | | | goclonal [...] | | | | | performed by [facility], | | | | | | [address], | | | | | | [place] [address] | | | | + + + [...] | | | | | performed by [facility], | | | | | | [address], | | | | | | [facility] [address] | | | | + + + [...] axial T1, | | sagittal STIR, axial T2kddenhko, and sagittal T1 enhanced sequences.Contrast: 8.5 | [...] at | | | | | | [facility];[address] [place] [address] | | | | | | [facility];[place] [address] | | | | + + + [...] | | | | | performed at [facility] | | | | | | [facility];[place], [place] | | | | | | [address] | | | | + + + [...] NEGATIVE Testing | | | performed at [facility];[address] [facility];[place] [address] | | + + + + +---------+ [...] | | | Patient | performed at [facility];[address] | | LAB | | | | [address];[place], [place] | | | | | | [address] | | | | + + + [...] | | | | | performed at [facility] | | | | | | [facility];[place], [place] | | | | | | [address] | | | | + + + [...] | | | Basophils | performed at [facility];[address] | K/uL | LAB | | | | [address];[place], [place] | | | | | | [address] | | | | + + + [...] | | | | | performed at [facility];[address] | | | | | | [facility];[place], [place] | | | | | | [address] | | | | + + + [...]
--- OUTSIDE RECORDS SUMMARY | ~2019-02-14 | XMS | Encounter Summary ---
Demographics + + + | Address | [address] [place] [address] | | | [place] [address] | + + + | Home Phone | | + + + | Preferred Language | Unknown | + + + | Marital Status | Unknown | + + + | Religion Affiliation | Unknown | + + + | Race | Unknown | + + + | Ethnic Group | Unknown | + + + Author + + + | Author | [facility] | | | and [place] | + + + | Organization | [facility] | | | and [...] Team Providers + +------+ + | Care Manager Utilization Name | Role | Phone | + [...] Provider Unknown | | | | | [place] | | | | | | [phone] | (Fax) | | | | | [phone] | | | +--------+ + + + [...]
--- OUTSIDE RECORDS SUMMARY | ~2019-02-14 | XMS | Encounter Summary ---
Demographics + + + | Address | [address] [place] [address] | | | [place] [address] | + + + | Home Phone | | + + + | Preferred Language | Unknown | + + + | Marital Status | Unknown | + + + | Mu-Ism Affiliation | Unknown | + + + | Race | Unknown | + + + | Ethnic Group | Unknown | + + + Author + + + | Author | [facility] | | | and [place] | + + + | Organization | [facility] | | [...] Team Providers + +------+ + | Care Industrial Engineering Name | Role | Phone | + [...] | | | | | [facility] [place] | | | | | | [phone] | (Fax) | | | | | [phone] | | | +--------+ + + + [...]
--- OUTSIDE RECORDS SUMMARY | ~2019-02-14 | XMS | Encounter Summary ---
Demographics + + + | Address | [address] [place] [address] | | | [place] [address] | + + + | Home Phone | | + + + | Preferred Language | Unknown | + + + | Marital Status | Unknown | + + + | Spiritism Affiliation | Unknown | + + + | Race | Unknown | + + + | Ethnic Group | Unknown | + + + Author + + + | Author | [facility] | | | and [place] | + + + | Organization | [facility] | | | [...] Team Providers + +------+ + | Care Multimedia Author Name | Role | Phone | + [...] | | | | [address] | [place] [address] | | | | | [place], [place] | [phone] | | | | | [address] | | | | | | [phone] | | | +--------+ + + + [...]
--- OUTSIDE RECORDS SUMMARY | ~2019-02-14 | XMS | Encounter Summary ---
Demographics + + + | Address | [address] [place] [address] | | | [place] [address] | + + + | Home Phone [...] + + + | Author | [facility] | | | and [place] | + + + | Organization | [facility] | | | and [...] Team Providers + +------+ + | Care Metal Bed Assembler Name | Role | Phone | + [...] + + | 10/17/ | Surgery | [facility] | Samy Cardenas, | ILEOSTOMY REVISION | | 2019 | | [facility] | [address] | | | | | [address] | [address] | | | | | [address] | [place] [address] | | | | | [place], [place] | [phone] | | | | | [address] | | | | | | [phone] | | | +--------+---------+ + + + [...] Physician Discharge Summary Patient ID: Matthias Lambert [id number] 43 y.o. 1975 Admit date: 10/17/2018 Discharge [...] dry. No rash noted, not diaphoretic. Disposition: Halfway Patient Instructions: Discharge Medications New Medications Details [...] swollen skin; skin rash Date Last Reviewed: 08/30/201519992428-8603 [employer]. [address] [place] [address]. All righ ts reserved. This information is [...] and e nergy drinks Date Last Reviewed: 07/30/201619994785-6994 [employer]. [address] [place] [address]. All righ ts reserved. This information is [...] Lambert 43 y.o. 1975 Med. Record Number: [id number] Date of admission: 10/17/2018 Service(s): Colorectal Surgery [...] RICK | | | | performed at [facility], [address] | | LABORATORY | | | | [address], | | | | | | [place] [address] | | | | + + + + + + + + | Specimen | + + | Blood | + + + + + + + | Performing | Address | City/State/Zipcode | Phone Number | | Organization | | | | + + + + + | [facility] | [address] | [place] [address] | [phone] | + + + + + Basic [...] | | | | | performed at [facility], [address] | | | | | | [facility], | | | | | | [place] [address] | | | | + + + + + + + + | Specimen | + + | Blood | + + + + + + + | Performing | Address | City/State/Zipcode | Phone Number | | Organization | | | | + + + + + | [facility] | [address] | [place] [address] | [phone] | + + + + + Type [...] + + + | [facility] | [id number] | | [facility] | | | | | | LABORATORY | | + + + + + + | [facility]AND | Testing performed at | | [facility] | | | | [address] | | LABORATORY | | | | [address];[place] [address] | | | | + + + + + + + + | Specimen | + + | Blood - Right upper | | arm structure (body | | structure) | + + + + + + + | Performing | Address | City/State/Zipcode | Phone Number | | Organization | | | | + + + + + | [facility] | [address] | [place] [address] | [phone] | + + + + + documented [...]
--- OUTSIDE RECORDS SUMMARY | ~2019-02-14 | XMS | Encounter Summary ---
Demographics + + + | Address | [address] [place] [address] | | | [place] [address] | + + + | Home Phone | | + + + | Preferred Language | Unknown | + + + | Marital Status | Unknown | + + + | Druze Affiliation | Unknown | + + + | Race | Unknown | + + + | Ethnic Group | Unknown | + + + Author + + + | Author | [facility] | | | and [place] | + + + | Organization | [facility] | | | [...] Team Providers + +------+ + | Care Sports Trainer Name | Role | Phone | + [...] + + | 10/17/ | Surgery | [facility] | Samy Cardenas, | ILEOSTOMY REVISION | | 2019 | | [place] | [address] | | | | | [address] | [address] | | | | | [address] | [place] [address] | | | | | [place], [place] | [phone] | | | | | [address] | | | | | | [phone] | | | +--------+---------+ + + + [...] Physician Discharge Summary Patient ID: Matthias Lambert [id number] 43 y.o. 1975 Admit date: 10/17/2018 Discharge [...] dry. No rash noted, not diaphoretic. Disposition: Snf Patient Instructions: Discharge Medications New Medications Details [...] swollen skin; skin rash Date Last Reviewed: 08/30/201519991964-4791 [employer]. [address] [place] [address]. All righ ts reserved. This information is [...] and e nergy drinks Date Last Reviewed: 07/30/201619996650-1678 [employer]. [address] [place] [address]. All righ ts reserved. This information is [...] Lambert 43 y.o. 1975 Med. Record Number: [id number] Date of admission: 10/17/2018 Service(s): Colorectal Surgery [...] RICK | | | | performed at [facility], [address] | | LABORATORY | | | | [address], | | | | | | [place] [address] | | | | + + + + + + + + | Specimen | + + | Blood | + + + + + + + | Performing | Address | City/State/Zipcode | Phone Number | | Organization | | | | + + + + + | [facility] | [address] | [place] [address] | [phone] | + + + + + Basic [...] | | | | | performed at [facility], [address] | | | | | | [facility], | | | | | | [place] [address] | | | | + + + + + + + + | Specimen | + + | Blood | + + + + + + + | Performing | Address | City/State/Zipcode | Phone Number | | Organization | | | | + + + + + | [facility] | [address] | [place] [address] | [phone] | + + + + + Type [...] + + + | [facility] | [id number] | | [facility] | | | | | | LABORATORY | | + + + + + + | [facility]AND | Testing performed at | | [facility] | | | | [address] | | LABORATORY | | | | [address];[place] [address] | | | | + + + + + + + + | Specimen | + + | Blood - Right upper | | arm structure (body | | structure) | + + + + + + + | Performing | Address | City/State/Zipcode | Phone Number | | Organization | | | | + + + + + | [facility] | [address] | [place] [address] | [phone] | + + + + + documented [...]
--- OUTSIDE RECORDS SUMMARY | ~2019-02-14 | XMS | Encounter Summary ---
Demographics + + + | Address | [address] [place] [address] | | | [place] [address] | + + + | Home Phone | | + + + | Preferred Language | Unknown | + + + | Marital Status | Unknown | + + + | Episcopal Affiliation | Unknown | + + + | Race | Unknown | + + + | Ethnic Group | Unknown | + + + Author + + + | Author | [facility] | | | and [place] | + + + | Organization | [facility] | | | [...] Team Providers + +------+ + | Care Galley Cook Name | Role | Phone | + [...] Provider Unknown | | | | | [facility] [place] | | | | | | [address] | (Fax) | | | | | [phone] | | | +--------+ + + + [...]
--- OUTSIDE RECORDS SUMMARY | ~2019-02-14 | XMS | Encounter Summary ---
Demographics + + + | Address | [address] [place] [address] | | | [place] [address] | + + + | Home Phone | | + + + | Preferred Language | Unknown | + + + | Marital Status | Unknown | + + + | Sikhism Affiliation | Unknown | + + + | Race | Unknown | + + + | Ethnic Group | Unknown | + + + Author + + + | Author | [facility] | | | and [place] | + + + | Organization | [facility] | | | [...] Team Providers + +------+ + | Care Furniture Mover Name | Role | Phone | + [...] + + | 10/17/ | Surgery | [facility] | Samy Cardenas, | ILEOSTOMY REVISION | | 2019 | | [facility] | [address] | | | | | [address] | [address] | | | | | [address] | [place] [address] | | | | | [place], [place] | [phone] | | | | | [address] | | | | | | [phone] | | | +--------+---------+ + + + [...] Physician Discharge Summary Patient ID: Matthias Lambert [id number] 43 y.o. 1975 Admit date: 10/17/2018 Discharge [...] dry. No rash noted, not diaphoretic. Disposition: Detention Patient Instructions: Discharge Medications New Medications Details [...] swollen skin; skin rash Date Last Reviewed: 08/30/201519997699-7443 [employer]. [address] [place] [address]. All righ ts reserved. This information is [...] and e nergy drinks Date Last Reviewed: 07/30/201619993711-6929 [employer]. [address] [place] [address]. All righ ts reserved. This information is [...] Lambert 43 y.o. 1975 Med. Record Number: [id number] Date of admission: 10/17/2018 Service(s): Colorectal Surgery [...] RICK | | | | performed at [facility], [address] | | LABORATORY | | | | [address], | | | | | | [place] [address] | | | | + + + + + + + + | Specimen | + + | Blood | + + + + + + + | Performing | Address | City/State/Zipcode | Phone Number | | Organization | | | | + + + + + | [facility] | [address] | [place] [address] | [phone] | + + + + + Basic [...] | | | | | performed at [facility], [address] | | | | | | [facility], | | | | | | [place] [address] | | | | + + + + + + + + | Specimen | + + | Blood | + + + + + + + | Performing | Address | City/State/Zipcode | Phone Number | | Organization | | | | + + + + + | [facility] | [address] | [place] [address] | [phone] | + + + + + Type [...] + + + | [facility] | [id number] | | [facility] | | | | | | LABORATORY | | + + + + + + | [facility] | Testing performed at | | [facility] | | | | [address] | | LABORATORY | | | | [address] [address] | | | | + + + + + + + + | Specimen | + + | Blood - Right upper | | arm structure (body | | structure) | + + + + + + + | Performing | Address | City/State/Zipcode | Phone Number | | Organization | | | | + + + + + | [facility] | [address] | [place] [address] | [phone] | + + + + + documented [...]
--- OUTSIDE RECORDS SUMMARY | ~2019-02-14 | XMS | Encounter Summary ---
Demographics + + + | Address | [address] [place] [address] | | | [place] [address] | + + + | Home Phone | | + + + | Preferred Language | Unknown | + + + | Marital Status | Unknown | + + + | Zoroastrian Affiliation | Unknown | + + + | Race | Unknown | + + + | Ethnic Group | Unknown | + + + Author + + + | Author | [facility] | | | and [place] | + + + | Organization | [facility] | | | [...] Team Providers + +------+ + | Care Appetizer Packer Name | Role | Phone | + +------+ + | No, Physician | PCP | Unavailable | + +------+ + Encounter Details +--------+---------+ + + + | Date | Type | Department | Care Team | Description | +--------+---------+ + + + | 11/01/ | Office | [facility] | Fidelina, | Surgery follow-up | | 2019 | Visit | GENERAL SURGERY [address] | [address] | (Primary Dx); | | | | [address] | [address] | Infectious colitis | | | | [address] | [place] [address] | | | | | [address] | [phone] | | | | | [phone] | | | +--------+---------+ + + + [...]
--- OUTSIDE RECORDS SUMMARY | ~2019-02-14 | XMS | Encounter Summary ---
Demographics + + + | Address | [address] [place] [address] | | | [place] [address] | + + + | Home Phone | | + + + | Preferred Language | Unknown | + + + | Marital Status | Unknown | + + + | Jainism Affiliation | Unknown | + + + | Race | Unknown | + + + | Ethnic Group | Unknown | + + + Author + + + | Author | [facility] | | | and [place] | + + + | Organization | [facility] | | | [...] Team Providers + +------+ + | Care Container Washer Machine Name | Role | Phone | + [...] | | | [facility] [place] | | | | | | [address] | (Fax) | | | | | [phone] | | | +--------+ + + + [...]
--- OUTSIDE RECORDS SUMMARY | ~2019-02-14 | XMS | Encounter Summary ---
Demographics + + + | Address | [address] [place] [address] | | | [place] [address] | + + + | Home Phone | | + + + | Preferred Language | Unknown | + + + | Marital Status | Unknown | + + + | Anabaptist Affiliation | Unknown | + + + [...] Team Providers + +------+ + | Care Advisory Intern Name | Role | Phone | + +------+ + PCP | Unavailable | + +------+ + Encounter Details +--------+ + + + + | Date | Type | Department | Care Team | Description | +--------+ + + + + | 04/19/ | Hospital | [facility] | Douglas Logan DO | Cervical | | 2019 - | Encounter | [facility] | [address] | radiculopathy at C6; | | | | CARE FLOOR [address] | Cervical | | 05/03/ | | [address] | [place] [address] | radiculopathy at C7; | | 2019 | | [place], [place] | [phone] | 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 | | | | [phone] | | of cervical region; | | | | | | Bilateral carpal | | | | | | tunnel syndrome; | | | | | | Muscle weakness of | | | | | | upper extremity; | | | | | | Infectious colitis; | | | | | | Cervical myelopathy | | | | | | ([facility]); S/P | | | | | | laminectomy; Sepsis, | | | | | | due to unspecified | | | | | | organism ([facility]) | +--------+ + + + [...] Date of Service: 05/03/18 1222 Status: Signed Floor Attendant: Douglas Logan DO (Physician) Neurosurgery Discharge Summary [facility] Neuro[facility] Provider: Douglas Logan DO Date : 05/03/2018 12:23 PM Referring Provider: Hospital Day: LOS: 14 days Date of Admission: 04/19/2018 Date of Discharge: 05/03/2018 Discharge Physician: Douglas Logan Treatment Team: Treatment Team: Consulting Physician: Wing Ashok Chaudhry MD Consulting Physician: Saym Cardenas MD Consulting Physician: Oracio Villaseñor MD [...] - ANTERIOR; Surgeon: Douglas Logan DO; Location: [facility] MAIN OR; Service: Neurosurgery; Laterality: N/A; C5-7 CERVICAL LAMINECTOMY N/A 04/19/2018 Procedure: CERVICAL - LAMINECTOMY POSTERIOR; Surgeon: Douglas Logan DO; Location: [facility] MA[facility] OR; Service: Neurosurgery; Laterality: N/A; Posterior Cervical Laminectomy, Foramino maxx five to seven. Possible adjacent levels. COLECTOMY N/A 04/25/2018 Procedure: COLECTOMY; Surgeon: Samy Cardenas MD; Location: [facility] MA[facility] OR; Service: G eneral; Laterality: N/A; ILEOSTOMY 04/25/2018 Procedure: ILEOSTOMY; Surgeon: Samy Cardenas MD; Location: [facility] MA[facility] OR; Service: G eneral;; LAPAROTOMY N/A 04/25/2018 Procedure: EXPLORATION - LAPAROTOMY; Surgeon: Samy Cardenas MD; Location: [facility] MA[facility] OR; Service: General; Laterality: N/A; LIPOMA [...] and fusion C5-7. Patient unfortunately [facility], and despite our insistence, was not offered postoperative followup and followed with the local [facility] physician. Patient states after surgical interve ntion, [...] in nature. He was evaluated by his [facility] physician, who spencer ectly ordered a CT [...] few months ago. 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 Patient has been trying Neurontin; but because the [facility] c ontrolled the substances, not been getting it all the time. Patient does have what appears to be a lot of medical concerns for someone in [facility]. Admission Date - >04/19/2018 < - OR [...] 05/03 0659 In: 6502.7 [P.O.:1037; I.V.:4891.5] Out: 46396 [Urine:7100] PHYSICAL EXAM: General: Pleasant, awake, alert, [...] symptoms [facility] educated on warning signs of infection and instructions to return if those si gns occur. Patient voiced understanding of education and agrees with Disposition: Longterm Condition: Stable Code Status: Full Code Discharge [...] Follow Up Numbers: Samy Cardenas MD [address] [facility] [id number] In 2 weeks Oracio Villaseñor MD [address] [facility] [id number] Douglas Logan DO [address] [place] [facility] [id number] Medication List START taking these medications calcium [...] summary. Douglas Logan D.O Board Certified Neurosurgeon [facility] Office Wale Rosado MD - 05/03/2018 8:49 AM PST Discharge Summaries by Wale Sandoval MD at 05/03/18 0849 Author: Wale Sandoval MD Service: Hospitalist Author Type: Physician Filed: 05/03/18899 Date of Service: 05/03/18848 Status: Signed Floor Attendant: Wale Sandoval MD (Physician) [facility] Service: Hospitalist Discharge Summary Date of [...] Code Follow up: Samy Cardenas MD [address] [facility] [address] In 2 weeks Oracio Villaseñor MD [address] [facility] [address] Douglas Logan DO [address] [place] [facility] [address] Medication List START taking these [...] 1523 Date of Service: 05/03/181510 Status: Signed Floor Attendant: Kecia Thurman RN (Registered Nurse) VSS, ABX given as ordered, ileostomy site cleaned and bag changed. Report given to nurse at [facility]. PICC flushed and saline locked, brown empty . Paperwork and all belongings given to guards. Pain meds and valium given immediately befo re discharge for adequate pain control. Pt Discharging to [facility] with guards via their vehicle. onver antonio Transaction, Provider Unknown - 05/03/2018 9:35 AM PST Case Management by PARDEEP Serrato at 05/03/1895 Author: PARDEEP Serrato Service: (none) Author Type: Gas Distribution Plant Operator Filed: 03/05/19 0937 Date of Service: 05/03/18 0935 Status: Signed Floor Attendant: PARDEEP Serrato (Gas Distribution Plant Operator) 05/03/18 0900 Discharge Planning Evaluation Admitting Diagnosis Cervical Myelopathy Anticipated Disposition Facility Type Other (Comment) ([facility] - pending [place]) A R COLLECTIONS REP p/c with Sweetie at [facility] Administrator at [facility] ([phone] cell, Fax) reviewed latest clinicals, needing IV Abx, new colostomy, would benefit from o /p PT and OT, will need follow up with providers. Sweetie will call back with location of faci lity. DCP: [facility] JANET DOCKERY Gas Distribution Plant Operator [phone] cell onver antonio Transaction, Provider Unknown - 05/02/2018 5:01 PM PST Nurse Progress Note by Kecia Thurman RN at 05/02/18 170 Author: Kecia Thurman RN Service: (none) Author Type: Registered Nurse Filed: 05/03/18 0729 Date of Service: 05/02/18 170 Status: Signed Floor Attendant: Kecia Thurman RN (Registered Nurse) VSS, afebrile. ABX given. Bgz-qi-pufmo chart review performed onver antonio Transaction, Provider Unknown - 05/02/2018 3:40 PM PST Therapy Progress Note by Mesha Paniagua PT at 05/02/18 1540 Author: Mesha Paniagua PT Service: (none) Author Type: Physical Therapist Filed: 05/02/18 1626 Date of Service: 05/02/18 1540 Status: Addendum Floor Attendant: Mesha Paniagua PT (Physical Therapist) Related Notes: [...] Barriers to Discharge: Physical Deficits Impacting Functional [place], Self-care Defic its Impacting Functional [place] Recommendation Comments: Pt SBA in all mobility, incl 16 stairs (notes 12 step flights, may stand to rest between flights prn). Likely safe to return to facility per [facility]. May bene fit from f/u OT for [...] limited by pain Medical Staff Made Aware: A R COLLECTIONS REP Janet notified of pt mobility status and [...] (pt. doesn't need to due stairs at [facility]) Stairs Level of Assist: With supervision Reflects last filed data of patient's status; may be from multiple contributors BP 122 systolic post activity, HR 110's; asymptomatic Oracio Preciado MD - 05/02/2018 3:37 PM PSTFormatting of this note might be differe nt from the original. Progress Notes by Oracio Villaseñor MD at 05/02/18 0875 Author: Oracio Villaseñor MD Service: Infectious Disease Author Type: Mago ruthy Filed: 05/02/18 0170 Date of Service: 05/02/181536 Status: Signed Floor Attendant: Oracio Villaseñor MD (Physician) [facility] Service: Infectious Diseases Progress Note Hospital [...] Value Units Date/Time Neuromyelitis optica IgG, CSF [[id number]] Collected: 04/20/18 1600 Updated: 04/30/18 0006 NEURO [...] down. Discussed with Dr. Sandoval. Discussed with wrapper caser re: discharge planning and antibiotics. Oracio Conti MD, MPH Infectious Diseases 05/02/2018 onvers ion Transaction, Provider Unknown - 05/02/2018 3:36 PM PST Case Management by PARDEEP Serrato at 05/02/18 1536 Author: PARDEEP Serrato Service: (none) Author Type: Gas Distribution Plant Operator Filed: 05/02/18 1621 Date of Service: 05/02/18 1536 Status: Addendum Floor Attendant: PARDEEP Serrato (Gas Distribution Plant Operator) Related Notes: Original Note by PARDEEP Serrato (Gas Distribution Plant Operator) filed at 05/02/18 1547 05/02/18 1500 Discharge Planning Evaluation Admitting Diagnosis Cervical Myelopathy Anticipated Disposition Facility Type Other (Comment) ([facility] - Loc. pend. O/P Cares need ) A R COLLECTIONS REP p/c with David PT recommends Outpatient Physical therapy 2-3 times per week. A R COLLECTIONS REP p/c with Sweetie at Tools Administrator at [facility] ([phone] cell, [phone] Fax) states they were planning for Pt to go back to a [facility] in [place], unfortunately EOI, has many stairs to navigate, states due to n eed for care, may be better suited to go [address] [place] [address] [facility] in [facility], pending. A R COLLECTIONS REP updated clinicals. A R COLLECTIONS REP p/c with Dr. Sushila Villaseñor, states he will print out the IV Abx scripts, will fax to Radha rsos, coordinator at [facility]. A R COLLECTIONS REP p/c with Yu PT states Pt was able to 16 "step-ups" in the room, recommends outpati ent PT and OT. OT for right arm. DCP: Pending [facility] JANET DOCKERY, Gas Distribution Plant Operator [phone] cell Wale Hernández MD - 05/02/2018 3:35 PM PST Progress Notes by Wale Sandoval MD at 05/02/18 1538 Author: Wale Sandoval MD Service: Hospitalist Author Type: Physician Filed: 05/02/181536 Date of Service: 05/02/181534 Status: Signed Floor Attendant: Wale Sandoval MD (Physician) [facility] Service: Hospitalist Progress Note Pt: Mtathias Lambert AGE/SEX: 42 y.o. male ROOM: 9107/9107-1 [...] be set up for return back to [facility], potentially tomorrow Pt overall doing well ASSESSMENT [...] Subramanian neurologist per his note on 04/25, [place] to be ADEM vs contusion vs spinal [...] hours. No results for input(s): PHART, PO2ART, RTL9RTB, J9SKVNQN, BEART in the last 168 hours. No [...] 05/02/18912 Date of Service: 05/02/18907 Status: Signed Floor Attendant: DELANEY Cherry (Nurse Practitioner) [facility] Service: Colon & Rectal Surgery Progress [...] 0835 Date of Service: 05/02/18827 Status: Signed Floor Attendant: Douglas Logan DO (Physician) Neurosurgery Progress Note [...] fusion C5-7. Patient unf ortunately is a [facility] patient, and despite our insistence, was not offered postoperative foll owup and followed with the local [facility] physician. Patient states after surgical intervention , he had remarkable recovery with regards to resolution of bilateral upper extremity radicul opathy and increased strength in his bilateral hands, increased ambulation, balance, and cook frozen dessert rdination. Patient was doing rather well for approximately 6 to 8 months until he started h aving intermittent tingling down his left hand in the C6 and C7 dermatomal region. This has returned and increased in nature. He was evaluated by his [facility] physician, who correctly or dered a CT [...] few months ago. 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 Patient has been trying Neurontin; but because the [facility] controlled the s ubstances, not been getting it all the time. Patient does have what appears to be a lot of medical concerns for someone in [facility]. Admission Date - >04/19/2018 < - OR [...] per 24 hour Intake 3675 ml Output 73185 ml Net -7550 ml 05/02 0700 - 05/02 1859 In: - Out: 700 [Urine:700] 04/30 1900 - 05/02 0659 In: 7563 [P.O.:4500; I.V.:2963] Out: 89428 [Urine:66138] Vent Settings Last 24hrs: PHYSICAL EXAM: General: [...] PT/OT 6. Likely disposition back to prior [facility] with need for final recommendations from ID, Medic ine, and General Surgery teams. [facility] and abx [facility] c an be established. Douglas Logan D.O Board Certified Neurosurgeon [facility] Office onversion Transactio n, Provider Unknown - 05/02/2018 5:47 AM PST Nurse Progress Note by Kenisha Todd RN at 05/02/18546 Author: Kenisha Todd RN Service: (none) Author Type: Registered Nurse Filed: 05/02/18546 Date of Service: 05/02/18546 Status: Signed Floor Attendant: Kenisha Todd RN (Registered Nurse) No acute [...] 05/01/181718 Date of Service: 05/01/181712 Status: Signed Floor Attendant: Oracio Villaseñor MD (Physician) [facility] Service: Infectious Diseases Progress Note Hospital [...] (none) Author Type: Registered Dietitian Filed: 05/02/18 0043 Date of Service: 05/01/18 1300 Status: Signed Floor Attendant: Ramona Candelaria RD (Registered Dietitian) This note [...] 05/01/18923 Date of Service: 05/01/18817 Status: Addendum Floor Attendant: Wale Sandoval MD (Physician) Related Notes: Original Note by Wale Sandoval MD (Physician) filed at 05/01/18918 [facility] Service: Hospitalist Progress Note Pt: Matthias Lambert AGE/SEX: 42 y.o. male ROOM: [facility]9107- : 1975 PCP: Per PT None [...] Subramanian neurologist per his note on 04/25, [place] to be ADEM vs contusion vs spinal [...] 05/01/18 0652 Gross per 24 hour Intake 13911 ml Output 41932 ml Net -671 ml No data found. [...] hours. No results for input(s): PHART, PO2ART, DQM8NKG, W6NPSDZL, BEART in the last 168 hours. No [...] 05/01/18549 Date of Service: 05/01/18547 Status: Signed Floor Attendant: Kenisha Todd RN (Registered Nurse) Pt c/o [...] 04/30/181941 Date of Service: 04/30/181939 Status: Signed Floor Attendant: Alesha Johnson RN (Registered Nurse) Pt vitals stable. Medicated for pain throughout the day. Ostomy appliance changed by chore worker. Needs and concerns addressed with pt. End of shift audit complete. Alesha Johnson RN onver antonio Transaction, Provider Unknown - 04/30/2018 2:34 PM PST Case Management by PARDEEP Armstrong at 04/30/18 2560 Author: PARDEEP Armstrong Service: (none) Author Type: Secondary School Special Ed Teacher Filed: 04/30/18 1437 Date of Service: 04/30/18 1434 Status: Signed Floor Attendant: PARDEEP Armstrong ([employer] Special Ed Teacher) CM received call from Wound Care (Frida [phone]) asking if [facility] ([facility]) will have the ostomy supplies the patient n eeds when he returns there. CM called [facility] and spoke to RN who said that [facility] usually provided initial needed supplie s (1 week) and then the halfway will order the supplies needed for the patient after that. CM relayed information to Wound Care. DONTA Alvarado Jam Rod ARNP - 04/30/2018 10:01 AM PST Progress Notes by DELANEY Cherry at 04/30/18 1001 Author: DELANEY Cherry Service: General Surgery Author Type: Nurse Alek urena Filed: 04/30/18 1003 Date of Service: 04/30/18 1001 Status: Signed Floor Attendant: DELANEY Cherry (Nurse Practitioner) [facility] Service: Colon & Rectal Surgery Progress [...] 1202 Date of Service: 04/30/18909 Status: Signed Floor Attendant: Mundo Ghosh MD (Physician) [facility] Service: Hospitalist Progress Note Pt: Matthias [...] per 24 hour Intake 3900 ml Output 93944 ml Net -7030 ml No data found. [...] Value Units Date/Time Neuromyelitis optica IgG, CSF [[id number]] Collected: 04/20/18 1600 Updated: 04/30/18 0006 NEURO OPTICA IGG CSF < 1:1 CSF IgG index [[id number]] Collected: 04/20/18 1600 Specimen: Cerebrospinal Fluid from Lumbar Puncture Updated: 04/29/18 0909 IGG,CSF 5.6 mg/dL ALBUMIN,CSF 34 mg/dL IgG 917 mg/dL Albumin 3.8 mg/dL CSF, IGG/ALB, RATIO 0.16 CSF/SERUM INDEX 0.7 Anaerobic Culture W/Gram Stain [[id number]] Collected: 04/25/18 1635 Specimen: Abdomen Updated: 04/29/18 0824 Specimen Description ABDOMEN SPECIAL REQUESTS CX AND SENSITIVITY GRAM STAIN 2+ GRAM STAIN WBC'S SEEN GRAM STAIN NO EPITHELIAL CELLS SEEN GRAM STAIN NO ORGANISMS SEEN CULTURE NO GROWTH 4 DAYS Blood Culture Set 1 [[id number]] Collected: 04/23/18 0851 Specimen: Blood from Blood, peripheral draw Updated: 04/29/18602 Specimen Description BLOOD, PERIPHERAL DRAW SPECIAL REQUESTS RAC CULTURE NO GROWTH 6 DAYS Blood Culture Set 2 [[id number]] Collected: 04/23/18 0858 Specimen: Blood from Blood, peripheral draw Updated: 04/29/18 06 Specimen Description BLOOD, PERIPHERAL DRAW SPECIAL REQUESTS LWRIST CULTURE NO GROWTH 6 DAYS Myelin basic protein, CSF [[id number]] (Abnormal) Collected: 04/20/18 1600 Specimen: Cerebrospinal Fluid [...] MD, FACP 04/30/2018 9:10 AM Dictation software, [employer], used which may contain error for similar [...] 1147 Date of Service: 04/30/18905 Status: Signed Floor Attendant: Vikas Garcia PT (Physical Therapist) PHYSICAL THERAPY TREATMENT NOTE PT Received On: 04/30/18 Reason for Treatment: Spinal surgery (cervical laminectomy and foraminotomy) Requires PT Follow Up: Yes PT Eval/Reassessment Date: 04/30/18 Recommendations: Prior Setting Barriers to Discharge: Self-care Deficits Impacting Functional [place], Physical Defic its Impacting Functional [place], Pain PT Ready for Discharge: Yes Plan [...] ([facility] Stairs Level of Assist: With supervision Reflects last filed data of patient's status; may be from multiple contributors AChoIsabella durham MD - 04/30/2018 7:40 AM PST Progress Notes by Isabella Duval MD at 04/30/18739 Author: Isabella Duval MD Service: Neurosurgery Author Type: Physician Filed: 04/30/18817 Date of Service: 04/30/18739 Status: Signed Floor Attendant: Isabella Duval MD (Physician) [facility] Service: Neurosurgery Progress Note Hospital Day: [...] 1-2/5 delt, biceps, 1/5 triceps, 0/5 wrist, scale technician, intrinsics PROBLEM LIST Principal Problem: Sepsis (HCC) Active Problems: Cervical myelopathy (HCC) S/P laminectomy Infectious colitis ASSESSMENT & PLAN Continue current management for pain, will need dispo as RUE paralysis makes ostomy care im possible. Disposition: Residential Code Status: Full Code Isabella Duval MD 04/30/2018 onversion Tra nsaction, Provider Unknown - 04/30/2018 6:49 AM PSTFormatting of this note might be differe nt from the original. Nurse Progress Note by Kenisha Todd RN at 04/30/18 0649 Author: Kenisha Todd RN Service: (none) Author Type: Registered Nurse Filed: 04/30/18 0650 Date of Service: 04/30/1849 Status: Signed Floor Attendant: Kenisha C Todd, RN (Registered Nurse) Pain [...] at 04/30/18509 Author: Vicki Corona RN Service: Stator Plate Washer Author Type: Registered Nurse Filed: 04/30/18509 Date of Service: 04/30/18509 Status: Signed Floor Attendant: Vicki Corona RN (Registered Nurse) Sepsis team signing off. Please contact us with any questions or concerns. Vicki Corona RN onver antonio Transaction, Provider Unknown - 04/29/2018 7:46 PM PST Nurse Progress Note by Larisa Taylor RN at 04/29/181945 Author: Larisa Taylor RN Service: (none) Author Type: Registered Nurse Filed: 04/29/181948 Date of Service: 04/29/181945 Status: Signed Floor Attendant: Larisa Taylor RN (Registered Nurse) Pt had [...] Notes by Giovani Callahan MD at 04/29/18 5929 Author: Giovani Callahan MD Service: Neurosurgery Author Type: Physician Filed: 04/29/181837 Date of Service: 04/29/181828 Status: Signed Floor Attendant: Giovani Callahan MD (Physician) [facility] Service: Neurological Surgery Progress Note Hospital [...] completed shifts: In: 2977.7 [P.O.:1100; I.V.:1877.7] Out: 71453 [Urine:63589; Stool:450] Input/Output Last shift No intake/output data [...] Notes by Oracio Villaseñor MD at 04/29/18 1791 Author: Oracio Villaseñor MD Service: Infectious Disease Author Type: Physic ruthy Filed: 04/29/181923 Date of Service: 04/29/18 151 Status: Signed Floor Attendant: Oracio Villaseñor MD (Physician) [facility] Service: Infectious Diseases Progress Note Hospital [...] Component Value Units Date/Time CSF IgG index [[id number]] Collected: 04/20/18 1600 Specimen: Cerebrospinal Fluid from Lumbar Puncture Updated: 04/29/18 0909 IGG,CSF 5.6 mg/dL ALBUMIN,CSF 34 mg/dL IgG 917 mg/dL Albumin 3.8 mg/dL CSF, IGG/ALB, RATIO 0.16 CSF/SERUM INDEX 0.7 Anaerobic Culture W/Gram Stain [[id number]] Collected: 04/25/18 1635 Specimen: Abdomen Updated: 04/29/18 0824 Specimen Description ABDOMEN SPECIAL REQUESTS CX AND SENSITIVITY GRAM STAIN 2+ GRAM STAIN WBC'S SEEN GRAM STAIN NO EPITHELIAL CELLS SEEN GRAM STAIN NO ORGANISMS SEEN CULTURE NO GROWTH 4 DAYS Blood Culture Set 1 [[id number]] Collected: 04/23/18 0851 Specimen: Blood from Blood, peripheral draw Updated: 04/29/18602 Specimen Description BLOOD, PERIPHERAL DRAW SPECIAL REQUESTS RAC CULTURE NO GROWTH 6 DAYS Blood Culture Set 2 [[id number]] Collected: 04/23/18 0858 Specimen: Blood from Blood, peripheral draw Updated: 04/29/18602 Specimen Description BLOOD, PERIPHERAL DRAW SPECIAL REQUESTS LWRIST CULTURE NO GROWTH 6 DAYS Myelin basic protein, CSF [[id number]] (Abnormal) Collected: 04/20/18 1600 Specimen: Cerebrospinal Fluid [...] measures. Discussed with Dr. Ghosh Discussed with wrapper caser. Coordinate OPAT with DOC. Side effects discussed [...] 04/29/18946 Date of Service: 04/29/18944 Status: Signed Floor Attendant: DELANEY Cherry (Nurse Practitioner) [facility] Service: Colon & Rectal Surgery Progress [...] Infusions lactated ringers 125 mL/hr at 04/29/18 0778 PRN Medications acetaminophen OR acetaminophen, calcium carbonate, [...] Author: PARDEEP Serrato Service: (none) Author Type: Gas Distribution Plant Operator Filed: 04/29/182 Date of Service: 04/29/18932 Status: Addendum Floor Attendant: PARDEEP Serrato (Gas Distribution Plant Operator) Related Notes: Original Note by PARDEEP Serrato (Gas Distribution Plant Operator) filed at 04/29/18 1614 04/29/18 09 Discharge Planning Evaluation Admitting Diagnosis Cervical Myelopathy Anticipated Disposition Facility Type Other (Comment) A R COLLECTIONS REP received p/c msg from Sweetie at [facility], requesting our Attending P nathaly Colindres call Dr. Alatorre ([phone] cell) to coordinate care needs at [facility] after this hospitalization. A R COLLECTIONS REP met with Dr. Ghosh anticipates Pt staying the weekend, A R COLLECTIONS REP will follow up on Wednesday. [facility] ([facility]), [address], [place] [address] [facility] number for nurse to nurse report is [phone] / DCP: [facility] ([facility]) - Residential JANET DOCKERY, Gas Distribution Plant Operator [phone] cell Mundo Peng MD - 04/29/2018 9:07 AM PST Progress Notes by Mundo Ghosh MD at 04/29/18906 Author: Mundo Ghosh MD Service: Hospitalist Author Type: Physician Filed: 04/29/18 1414 Date of Service: 04/29/18906 Status: Signed Floor Attendant: Mundo Ghosh MD (Physician) [facility] Service: Hospitalist Progress Note Pt: Matthias Lambert AGE/SEX: 42 y.o. male ROOM: [facility]/91-1 : 1975 PCP: Per PT None ADMIT [...] Value Units Date/Time Anaerobic Culture W/Gram Stain [[id number]] Collected: 04/25/18 1635 Specimen: Abdomen Updated: 04/29/18 0824 Specimen Description ABDOMEN SPECIAL REQUESTS CX AND SENSITIVITY GRAM STAIN 2+ GRAM STAIN WBC'S SEEN GRAM STAIN NO EPITHELIAL CELLS SEEN GRAM STAIN NO ORGANISMS SEEN CULTURE NO GROWTH 4 DAYS Blood Culture Set 1 [[id number]] Collected: 04/23/18 0851 Specimen: Blood from Blood, peripheral draw Updated: 04/29/18 0603 Specimen Description BLOOD, PERIPHERAL DRAW SPECIAL REQUESTS RAC CULTURE NO GROWTH 6 DAYS Blood Culture Set 2 [[id number]] Collected: 04/23/18 0858 Specimen: Blood from Blood, peripheral draw Updated: 04/29/18 0603 Specimen Description BLOOD, PERIPHERAL DRAW SPECIAL REQUESTS LWRIST CULTURE NO GROWTH 6 DAYS Myelin basic protein, CSF [[id number]] (Abnormal) Collected: 04/20/18 1600 Specimen: Cerebrospinal Fluid [...] MD, FACP 04/29/2018 9:07 AM Dictation software, [employer], used which may contain error for similar [...] 04/29/18621 Date of Service: 04/29/18621 Status: Signed Floor Attendant: Kenisha Todd RN (Registered Nurse) Prn oxycodone [...] 04/28/181953 Date of Service: 04/28/181854 Status: Signed Floor Attendant: Queenie Schwartz RN (Registered Nurse) End of shift chart check complete. QUEENIE SCHWARTZ RN onver antonio Transaction, Provider Unknown - 04/28/2018 4:17 PM PST Therapy Progress Note by DONNA Santoyo at 04/28/181616 Author: DONNA Santoyo Service: (none) Author Type: Occupational Therapy Silvana zeng Filed: 04/28/18 1720 Date of Service: 04/28/181616 Status: Signed Floor Attendant: DONNA Santoyo (Correctional Officer Captain) OCCUPATIONAL THERAPY TREATMENT NOTE OT Received On: 04/28/18 Reason for Treatment: Spinal surgery Requires OT Follow Up: Yes Assistance Required: 1 person Boat Rigger Needed: No Family/Caregiver Present: Yes (halfway guards) Recommendation: (continue IRF) Equipment Recommended: (TBD) Requires OT Follow Up: Yes Recommendation Comments Plan Treatment Interventions: (per OT POC) Progress: Progressing toward goals Requires OT Follow Up: Yes Focus for next session: Further clarification of tubi scale technician for RUE, donning of shirt, transfers, sensory reintegrat Gilma salgado(RUE) Follow up by: [] OT [] BRIAN [x] Either Precautions Spinal Precautions: Cervical Other Precautions: Fall precautions, flaccid RUE, impulsivity, Ankle shackles Summary pt seated in recliner chair upon CASING TRIMMER arrival. Agreeable to participate in OT at [...] with RN for possible use of tubi scale technician to assist with edema. Will benefit from follow up for appropriate ness. Safety Devices in Place: Yes Type of Devices: Call lite in place, RN notified (halfway guards present) Barriers to d/c at this [...] Note by David Arnold PT at 04/28/18 1444 Author: David Arnold PT Service: (none) Author Type: Physical Therapist Filed: 04/28/18 2490 Date of Service: 04/28/181439 Status: Signed Floor Attendant: David Arnold PT (Physical Therapist) PHYSICAL THERAPY TREATMENT NOTE PT Received On: 04/28/18 Reason for Treatment: Spinal surgery (cervical laminectomy and foraminotomy; colectomy) Requires PT Follow Up: Yes Recommendations: Prior Setting, OP PT (with therapy services at [facility]) PT Ready for Discharge: Yes Plan Treatment/Interventions: [...] report of fatigue Nurse Made Aware: RAFIA Jeorme Safety Devices in Place: (Needs met; Rn [...] Date of Service: 04/28/18 114 Status: Signed Floor Attendant: Abhay An MD (Physician) [facility] Service: Neurosurgery Progress Note Hospital Day: [...] Disease Author Type: Physic ruthy Filed: 04/28/18 8691 Date of Service: 04/28/18 1130 Status: Signed Floor Attendant: Oracio Villaseñor MD (Physician) [facility] Service: Infectious Diseases Progress Note Hospital [...] Value Units Date/Time Anaerobic Culture W/Gram Stain [[id number]] Collected: 04/25/18 1635 Specimen: Abdomen Updated: 04/28/18 0704 Specimen Description ABDOMEN SPECIAL REQUESTS CX AND SENSITIVITY GRAM STAIN 2+ GRAM STAIN WBC'S SEEN GRAM STAIN NO EPITHELIAL CELLS SEEN GRAM STAIN NO ORGANISMS SEEN CULTURE NO GROWTH 3 DAYS Myelin basic protein, CSF [[id number]] (Abnormal) Collected: 04/20/18 1600 Specimen: Cerebrospinal Fluid from Lumbar Puncture Updated: 04/27/18 1316 Myelin Basic Prot, CSF >167.0 (H) ng/mL HSV 1/2 detect/diff by rtpcr : for antigen testing on CSF, newborns & immuno-compromised. [[id number]] Collected: 04/20/18 1600 Specimen: Cerebrospinal Fluid from CSF Updated: 04/25/18 2107 SOURCE CEREBROSPINAL FLUID HSV DNA Type 1 Negative HSV DNA Type 2 Negative VDRL, CSF [[id number]] Collected: 04/20/18 1600 Specimen: Cerebrospinal Fluid from [...] 1116 Date of Service: 04/28/181102 Status: Signed Floor Attendant: Era Campos RN (Registered Nurse) [facility] Service: Ostomy Care Consult Note Hospital [...] time for ABX instill per RN. Stoma: Mallard, moist, well budded Sally-stomal: Clean, dry, intact [...] that this would be ordere d thru [facility] for EOC. They did not have this number at this time. hvac residential service technician will follow up in 2 days for follow up on pouching and supplies for DC. Thank you for allowing me to participate in the care of this patient. I have discussed my recommendations with the attending physician. I will continue to follow with you. Era Campos RN [facility] 04/28/2018 Mundo Peng MD - 04/28/2018 8:56 AM PST Progress Notes by Mundo Ghosh MD at 04/28/18855 Author: Mundo Ghosh MD Service: Hospitalist Author Type: Physician Filed: 04/28/18 1210 Date of Service: 04/28/1856 Status: Signed Floor Attendant: Mundo Ghosh MD (Physician) [facility] Service: Hospitalist Progress Note Pt: Matthias Lambert AGE/SEX: 42 y.o. male ROOM: [address] [place] [address] : 1975 PCP: Per PT None ADMIT [...] Value Units Date/Time Anaerobic Culture W/Gram Stain [[id number]] Collected: 04/25/18 1635 Specimen: Abdomen Updated: 04/28/18 0704 Specimen Description ABDOMEN SPECIAL REQUESTS CX AND SENSITIVITY GRAM STAIN 2+ GRAM STAIN WBC'S SEEN GRAM STAIN NO EPITHELIAL CELLS SEEN GRAM STAIN NO ORGANISMS SEEN CULTURE NO GROWTH 3 DAYS Myelin basic protein, CSF [[id number]] (Abnormal) Collected: 04/20/18 1600 Specimen: Cerebrospinal Fluid from Lumbar Puncture Updated: 04/27/18 1316 Myelin Basic Prot, CSF >167.0 (H) ng/mL HSV 1/2 detect/diff by rtpcr : for antigen testing on CSF, newborns & immuno-compromised. [[id number]] Collected: 04/20/18 1600 Specimen: Cerebrospinal Fluid from CSF Updated: 04/25/18 2107 SOURCE CEREBROSPINAL FLUID HSV DNA Type 1 Negative HSV DNA Type 2 Negative VDRL, CSF [[id number]] Collected: 04/20/18 1600 Specimen: Cerebrospinal Fluid from [...] MD, FACP 04/28/2018 8:56 AM Dictation software, [employer], used which may contain error for similar [...] 1229 Date of Service: 04/28/18851 Status: Signed Floor Attendant: DELANEY Cherry (Nurse Practitioner) [facility] Service: Colon & Rectal Surgery Progress [...] 04/28/189 Date of Service: 04/28/18445 Status: Signed Floor Attendant: Enriqueta Burgess RN (Registered Nurse) Abdominal dressing [...] 194 Date of Service: 04/27/181729 Status: Signed Floor Attendant: Oracio Lazar RN (Registered Nurse) Brown catheter [...] Notes by Oracio Villaseñor MD at 04/27/18 587 Author: Oracio Villaseñor MD Service: Infectious Disease Author Type: Physic ruthy Filed: 04/27/181656 Date of Service: 04/27/181648 Status: Signed Floor Attendant: Oracio Villaseñor MD (Physician) [facility] Service: Infectious Diseases Progress Note Hospital [...] Value Units Date/Time Myelin basic protein, CSF [[id number]] (Abnormal) Collected: 04/20/18 1600 Specimen: Cerebrospinal Fluid from Lumbar Puncture Updated: 04/27/18 1316 Myelin Basic Prot, CSF >167.0 (H) ng/mL Anaerobic Culture W/Gram Stain [[id number]] Collected: 04/25/18 1635 Specimen: Abdomen Updated: 04/27/18 1124 Specimen Description ABDOMEN SPECIAL REQUESTS CX AND SENSITIVITY GRAM STAIN 2+ GRAM STAIN WBC'S SEEN GRAM STAIN NO EPITHELIAL CELLS SEEN GRAM STAIN NO ORGANISMS SEEN CULTURE NO GROWTH 2 DAYS HSV 1/2 detect/diff by rtpcr : for antigen testing on CSF, newborns & immuno-compromised. [[id number]] Collected: 04/20/18 1600 Specimen: Cerebrospinal Fluid from CSF Updated: 04/25/18 2107 SOURCE CEREBROSPINAL FLUID HSV DNA Type 1 Negative HSV DNA Type 2 Negative VDRL, CSF [[id number]] Collected: 04/20/18 1600 Specimen: Cerebrospinal Fluid from Lumbar Puncture Updated: 04/25/18 1210 VDRL Quant, CSF Non Reactive Fecal occult blood (in house) [[id number]] Collected: 04/24/18 140 Specimen: Stool from Stool Updated: 04/25/18 08 Fecal Occult Blood NEGATIVE C Difficile Only [[id number]] (Abnormal) Collected: 04/24/18 140 Specimen: Stool Updated: 04/25/18816 GDH ANTIGEN POSITIVE (A) TOXIN A & B POSITIVE (A) C DIFF INTERPRETATION Positive for toxigenic C.difficile, active toxin present. Urine culture [[id number]] Collected: 04/23/18 1251 Specimen: Urine from Urine, [...] 1438 Date of Service: 04/27/181428 Status: Signed Floor Attendant: Rick Rubio RN (Registered Nurse) [facility] Service: Ostomy Care Consult Note Hospital [...] colitis ASSESSMENT & PLAN Patient is from [facility] and has no movement of his right [...] as he w ill be returning to [facility] at discharge. He has been placed on [...] Service: Neurology Author Type: Physician Filed: 04/27/18 6399 Date of Service: 04/27/18 1401 Status: Addendum Floor Attendant: Lilian Grove MD (Physician) Related Notes: Original Note by Lilian Grove MD (Physician) filed at 04/27/18 6399 Subjective: Patient seen and examined. Matthias Lambert [...] tibody. Dr. Subramanian recommended recommended transfer to [facility] for further work up. I was [...] underlying bleeding diathesis. CSF: WBC: 11 RBC: 47491 Total protein: 55 Glucose: 108 CSF Cx: NGX 4 Ds. JUAN: P MARCELL: -ve VDRL: NR MS panel: Elevated MBP (neurons destruction) and mildly elevated IgG index. Zero OCBs were observed in the CSF. However four (4) paired bands were observed in both the CSF and serum. Paired bands suggest an immune response to an inflammatory process outside the SPINNER OPERATOR and are u nlikely to represent a SPINNER OPERATOR demyelinating disease. HSV: -ve. WNV: -ve NMO [...] rel ated to inflammatory process outside the SPINNER OPERATOR. Plan: 1- Telemetry bed with reasonable hydration. 2- Vital signs and neurocheck per ICU routine. Avoid hypotension. 3- For #1, adjust gabapentin and methocarbamol doses according to renal function and replac e electrolytes as needed. 4- For #2, no definite evidence of SPINNER OPERATOR inflammatory process at this itme. He is [...] (none) Author Type: Physical Therapist Filed: 04/27/18 9776 Date of Service: 04/27/18 1028 Status: Signed Floor Attendant: David Arnold PT (Physical Therapist) PHYSICAL THERAPY TREATMENT NOTE PT Received On: 04/27/18 Reason for Treatment: Spinal surgery (cervical laminectomy and foraminotomy; colectomy) Requires PT Follow Up: Yes Recommendations: Prior Setting (with therapy services at [facility]) PT Ready for Discharge: Yes Plan Treatment/Interventions: [...] patient's status; may be [facility] multiple [facility] AR[facility] - 04/27/2018 9:53 AM PST Progress Notes by DELANEY Cherry at 04/27/18952 Author: DELANEY Cherry Service: General Surgery Author Type: Nurse Practitione r Filed: 04/27/18954 Date of Service: 04/27/18952 Status: Signed Floor Attendant: DELANEY Cherry (Nurse Practitioner) [facility] Service: Colon & Rectal Surgery Progress [...] Infusions lactated ringers 150 mL/hr at 04/27/18 0510 PRN Medications acetaminophen OR acetaminophen, calcium carbonate, [...] 04/27/1848 Date of Service: 04/27/18945 Status: Signed Floor Attendant: Douglas Logan DO (Physician) Neurosurgery Progress Note [...] fusion C5-7. Patient unf ortunately is a [facility] patient, and despite our insistence, was not offered postoperative foll owup and followed with the local [facility] physician. Patient states after surgical intervention , he had remarkable recovery with regards to resolution of bilateral upper extremity radicul opathy and increased strength in his bilateral hands, increased ambulation, balance, and cook frozen dessert rdination. Patient was doing rather well for approximately 6 to 8 months until he started h aving intermittent tingling down his left hand in the C6 and C7 dermatomal region. This has returned and increased in nature. He was evaluated by his [facility] physician, who correctly or dered a CT [...] few months ago. 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 Patient has been trying Neurontin; but because the [facility] controlled the s ubstances, not been getting it all the time. Patient does have what appears to be a lot of medical concerns for someone in [facility]. Admission Date - >04/19/2018 < - OR [...] informed that he may be followed with air carrier operations inspector neurosurgeon over weekend. Douglas Logan D.O Board Certified Neurosurgeon [facility] Office Mundo Granda MD - 04/27/2018 9:13 AM PST Progress Notes by Mundo Ghosh MD at 04/27/18912 Author: Mundo Ghosh MD Service: Hospitalist Author Type: Physician Filed: 04/27/18 1248 Date of Service: 04/27/18912 Status: Signed Floor Attendant: Mundo Ghosh MD (Physician) [facility] Service: Hospitalist Progress Note Pt: Matthias Lambert AGE/SEX: 42 y.o. male ROOM: [address] [place] [address] : 1975 PCP: Per PT None ADMIT [...] Value Units Date/Time Anaerobic Culture W/Gram Stain [[id number]] Collected: 04/25/18 1635 Specimen: Abdomen Updated: 04/26/18 1327 Specimen Description ABDOMEN SPECIAL REQUESTS CX AND SENSITIVITY GRAM STAIN 2+ GRAM STAIN WBC'S SEEN GRAM STAIN NO EPITHELIAL CELLS SEEN GRAM STAIN NO ORGANISMS SEEN CULTURE NO GROWTH AT THIS TIME HSV 1/2 detect/diff by rtpcr : for antigen testing on CSF, newborns & immuno-compromised. [[id number]] Collected: 04/20/18 1600 Specimen: Cerebrospinal Fluid from CSF Updated: 04/25/18 2107 SOURCE CEREBROSPINAL FLUID HSV DNA Type 1 Negative HSV DNA Type 2 Negative VDRL, CSF [[id number]] Collected: 04/20/18 1600 Specimen: Cerebrospinal Fluid from Lumbar Puncture Updated: 04/25/18 1210 VDRL Quant, CSF Non Reactive Fecal occult blood (in house) [[id number]] Collected: 04/24/18 1405 Specimen: Stool from Stool Updated: 04/25/18 0817 Fecal Occult Blood NEGATIVE C Difficile Only [[id number]] (Abnormal) Collected: 04/24/18 1405 Specimen: Stool Updated: 04/25/18 0817 GDH ANTIGEN POSITIVE (A) TOXIN A & B POSITIVE (A) C DIFF INTERPRETATION Positive for toxigenic C.difficile, active toxin present. Urine culture [[id number]] Collected: 04/23/18 1251 Specimen: Urine from Urine, Catheter Updated: 04/24/18 1949 Specimen Description CATHETERIZED URINE CULTURE NO GROWTH Blood Culture Set 2 [[id number]] Collected: 04/23/18 0858 Specimen: Blood from Blood, peripheral draw Updated: 04/24/18 1214 Specimen Description BLOOD, PERIPHERAL DRAW SPECIAL REQUESTS LWRIST CULTURE NO GROWTH AT THIS TIME Blood Culture Set 1 [[id number]] Collected: 04/23/18 0851 Specimen: Blood from Blood, [...] MD, FACP 04/27/2018 9:13 AM Dictation software, [employer], used which may contain error for similar [...] 04/27/18645 Date of Service: 04/27/18645 Status: Signed Floor Attendant: Antwon Barillas RN (Registered Nurse) Chart check complete. onver antonio Transaction, Provider Unknown - 04/26/2018 11:20 PM PST Nurse Progress Note by Antwon Barillas RN at 04/26/182319 Author: Antwon Barillas RN Service: (none) Author Type: Registered Nurse Filed: 04/27/18 0011 Date of Service: 02/26/19 2320 Status: Signed Floor Attendant: Antwon Barillsa RN (Registered Nurse) Pt noticeably tachy in [...] 04/26/181836 Date of Service: 04/26/181835 Status: Signed Floor Attendant: Traci Porter RN (Registered Nurse) End of shift chart check complete Douglas Webb DO - 04/26/2018 4:46 PM PSTFormatting of this note might be different from the or iginal. Progress Notes by Douglas Logan DO at 04/26/181645 Author: Douglas Logan DO Service: Neurosurgery Author Type: Physician Filed: 04/26/181654 Date of Service: 04/26/181645 Status: Signed Floor Attendant: Douglas Logan DO (Physician) Neurosurgery Progress Note [...] fusion C5-7. Patient unf ortunately is a [facility] patient, and despite our insistence, was not offered postoperative foll owup and followed with the local [facility] physician. Patient states after surgical intervention , he had remarkable recovery with regards to resolution of bilateral upper extremity radicul opathy and increased strength in his bilateral hands, increased ambulation, balance, and cook frozen dessert rdination. Patient was doing rather well for approximately 6 to 8 months until he started h aving intermittent tingling down his left hand in the C6 and C7 dermatomal region. This has returned and increased in nature. He was evaluated by his [facility] physician, who correctly or dered a CT [...] few months ago. 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 Patient has been trying Neurontin; but because the [facility] controlled the s ubstances, not been getting it all the time. Patient does have what appears to be a lot of medical concerns for someone in [facility]. Admission Date - >04/19/2018 < - OR [...] 11/04/2016 Bilateral carpal tunnel syndrome 08/26/2016 Assessment/Plan Mtathias Lambert is a 42 y.o. male with [...] improvement. Douglas Logan D.O Board Certified Neurosurgeon [facility] Office onversion Transactio n, Provider Unknown - 04/26/2018 2:45 PM PST Progress Notes by Anastasiya Díaz RD at 04/26/18 1441 Author: Anastasiya Díaz RD Service: (none) Author Type: Registered Dietitian Filed: 04/26/18 1447 Date of Service: 04/26/18 1444 Status: Signed Floor Attendant: Anastasiya Díaz RD (Registered Dietitian) 04/26/18 1433 [...] Estimated Energy Needs Total Energy Estimated Needs 5513-5113 kcal Method for Estimating Needs 25-30 kcal/kg [...] Disease Author Type: Physic ruthy Filed: 04/27/18 1278 Date of Service: 04/26/18 1341 Status: Signed Floor Attendant: Oracio Villaseñor MD (Physician) [facility] Service: Infectious Diseases Progress Note Hospital [...] Value Units Date/Time Myelin basic protein, CSF [[id number]] (Abnormal) Collected: 04/20/18 1600 Specimen: Cerebrospinal Fluid from Lumbar Puncture Updated: 04/27/18 1316 Myelin Basic Prot, CSF >167.0 (H) ng/mL Anaerobic Culture W/Gram Stain [[id number]] Collected: 04/25/18 1635 Specimen: Abdomen Updated: 04/27/18 1124 Specimen Description ABDOMEN SPECIAL REQUESTS CX AND SENSITIVITY GRAM STAIN 2+ GRAM STAIN WBC'S SEEN GRAM STAIN NO EPITHELIAL CELLS SEEN GRAM STAIN NO ORGANISMS SEEN CULTURE NO GROWTH 2 DAYS HSV 1/2 detect/diff by rtpcr : for antigen testing on CSF, newborns & immuno-compromised. [[id number]] Collected: 04/20/18 1600 Specimen: Cerebrospinal Fluid from CSF Updated: 04/25/18 2107 SOURCE CEREBROSPINAL FLUID HSV DNA Type 1 Negative HSV DNA Type 2 Negative VDRL, CSF [[id number]] Collected: 04/20/18 1600 Specimen: Cerebrospinal Fluid from Lumbar Puncture Updated: 04/25/18 1210 VDRL Quant, CSF Non Reactive Fecal occult blood (in house) [[id number]] Collected: 04/24/18 1405 Specimen: Stool from Stool Updated: 04/25/18 0817 Fecal Occult Blood NEGATIVE C Difficile Only [[id number]] (Abnormal) Collected: 04/24/18 1405 Specimen: Stool Updated: 04/25/1817 GDH ANTIGEN POSITIVE (A) TOXIN A & B POSITIVE (A) C DIFF INTERPRETATION Positive for toxigenic C.difficile, active toxin present. Urine culture [[id number]] Collected: 04/23/18 1251 Specimen: Urine from Urine, [...] Notes by Lilian Grove MD at 04/26/18 5356 Author: Lilian Grove MD Service: Neurology Author Type: Physician Filed: 04/27/18 0902 Date of Service: 04/26/18 1313 Status: Addendum Floor Attendant: Lilian Grove MD (Physician) Related Notes: Original Note by Lilian Grove MD (Physician) filed at 04/26/18 8573 Subjective: Patient seen and examined. Matthias Lambert [...] tibody. Dr. Subramanian recommended recommended transfer to [facility] for further work up. I was [...] underlying bleeding diathesis. CSF: WBC: 11 RBC: 73915 Total protein: 55 Glucose: 108 CSF Cx: [...] Case Management by PARDEEP Dumont at 04/26/18 1123 Author: PARDEEP Dumont Service: (none) Author Type: Gas Distribution Plant Operator Filed: 04/26/18 5554 Date of Service: 04/26/181125 Status: Addendum Floor Attendant: PARDEEP Dumont (Gas Distribution Plant Operator) Related Notes: Original Note by PARDEEP Dumont (Gas Distribution Plant Operator) filed at 04/26/18 1446 A R COLLECTIONS REP attended daily rounds with . Per MD, pt may be ready for discharge in 2-3 days. Pt wi ll discharge with a new ileocolostomy back to [facility]. [facility] [address] [place] [address] [facility] number for nurse to nurse report is [phone] / Addendum: CM spoke to Sweetie ([phone]) with [facility] regarding an update [...] Date of Service: 04/26/18 0948 Status: Attested Floor Attendant: RAHEL Putnam (Physician Bench Precision Assembler - Certified) Cosigner: Elías alas MD at 04/26/18 1601 Attestation signed by Elías Joshi MD at 04/26/18 1601 Above note is reviewed and I agree with the assessment and plan as documented. I performed an interview and personally examined the patient. If any changes were needed, the note was updated and changes were discussed with the author. Feeling better today. Elías Joshi MD [facility] Gastroenterology 04/26/2018 [facility] Service: Gastroenterology Consult Progress Note Hospital [...] with IV antibiotics per ID recommendation [facility]HEL [facility] Gastroenterology 04/26/2018 Mundo Peng MD - 04/26/2018 8:58 AM PST Progress Notes by Mundo Ghosh MD at 04/26/18857 Author: Mundo Ghosh MD Service: Hospitalist Author Type: Physician Filed: 04/26/18 1113 Date of Service: 04/26/18857 Status: Signed Floor Attendant: Mundo Ghosh MD (Physician) [facility] Service: Hospitalist Progress Note Pt: Matthias Lambert AGE/SEX: 42 y.o. male ROOM: [address] [place] [address] : 1975 PCP: Per PT None ADMIT [...] antigen testing on CSF, newborns & immuno-compromised. [[id number]] Collected: 04/20/18 1600 Specimen: Cerebrospinal Fluid from CSF Updated: 04/25/18 210 SOURCE CEREBROSPINAL FLUID HSV DNA Type 1 Negative HSV DNA Type 2 Negative Anaerobic Culture W/Gram Stain [[id number]] Collected: 04/25/18 1635 Specimen: Abdomen Updated: 04/25/18 202 VDRL, CSF [[id number]] Collected: 04/20/18 1600 Specimen: Cerebrospinal Fluid from Lumbar Puncture Updated: 04/25/18 1210 VDRL Quant, CSF Non Reactive Fecal occult blood (in house) [[id number]] Collected: 04/24/18 1405 Specimen: Stool from Stool Updated: 04/25/18 0817 Fecal Occult Blood NEGATIVE C Difficile Only [[id number]] (Abnormal) Collected: 04/24/18 1405 Specimen: Stool Updated: 04/25/18 0817 GDH ANTIGEN POSITIVE (A) TOXIN A & B POSITIVE (A) C DIFF INTERPRETATION Positive for toxigenic C.difficile, active toxin present. Urine culture [[id number]] Collected: 04/23/18 1251 Specimen: Urine from Urine, Catheter Updated: 04/24/18 1949 Specimen Description CATHETERIZED URINE CULTURE NO GROWTH Blood Culture Set 2 [[id number]] Collected: 04/23/18 0858 Specimen: Blood from Blood, peripheral draw Updated: 04/24/18 1214 Specimen Description BLOOD, PERIPHERAL DRAW SPECIAL REQUESTS LWRIST CULTURE NO GROWTH AT THIS TIME Blood Culture Set 1 [[id number]] Collected: 04/23/18 0851 Specimen: Blood from Blood, peripheral draw Updated: 04/24/18 1214 Specimen Description BLOOD, PERIPHERAL DRAW SPECIAL REQUESTS RAC CULTURE NO GROWTH AT THIS TIME CSF culture w/gram stain [[id number]] Collected: 04/20/18 1600 Specimen: Cerebrospinal Fluid from [...] MD, FACP 04/26/2018 8:58 AM Dictation software, [employer], used which may contain error for similar [...] 04/26/1845 Date of Service: 04/26/18841 Status: Signed Floor Attendant: DELANEY Cherry (Nurse Practitioner) [facility] Service: Colon & Rectal Surgery Progress [...] 04/27/1849 Date of Service: 04/26/18648 Status: Signed Floor Attendant: Antwon Barillas RN (Registered Nurse) Chart check complete. onver antonio Transaction, Provider Unknown - 04/25/2018 8:10 PM PST Nurse Progress Note by Gisela Oneil RN at 04/25/182009 Author: Gisela Oneil RN Service: (none) Author Type: Registered Nurse Filed: 04/25/182011 Date of Service: 04/25/182009 Status: Signed Floor Attendant: Gisela Oneil RN (Registered Nurse) Patient hesitant [...] at 04/25/18 1521 Author: DELANEY Hudson Service: Stator Plate Washer Author Type: Advanced Registered Nu rse Practitioner Filed: 04/25/18 173 Date of Service: 04/25/181520 Status: Signed Floor Attendant: DELANEY Hudson (Advanced Registered Nurse Practitioner) [facility] Service: Stator Plate Washer Progress Note [facility] 42 [facility] [...] Service: Pharmacy Author Type: Pharmacist Filed: 04/25/18 1503 Date of Service: 04/25/181501 Status: Signed Floor Attendant: Nury Cordoba RPH (Pharmacist) [facility] [...] Notes by Lilian Grove MD at 04/25/18 5752 Author: Lilian Grove MD Service: Neurology Author Type: Physician Filed: 04/26/18 4672 Date of Service: 04/25/18 0695 Status: Addendum Floor Attendant: Lilian Grove MD (Physician) Related Notes: Original Note by Lilian Grove MD (Physician) filed at 04/26/18 4870 Subjective: Patient seen and examined. Matthias Lambert [...] tibody. Dr. Subramanian recommended recommended transfer to [facility] for further work up. Current complaints: [...] underlying bleeding diathesis. CSF: WBC: 11 RBC: 60606 Total protein: 55 Glucose: 108 CSF Cx: [...] Service: Hospitalist Author Type: Physician Filed: 04/25/18 3262 Date of Service: 04/25/18 1135 Status: Addendum Floor Attendant: Mundo Ghosh MD (Physician) Related Notes: Original Note by Mundo Ghosh MD (Physician) filed at 04/25/18 1145 [facility] Service: Hospitalist Progress Note Pt: Matthias Lambert AGE/SEX: 42 y.o. male ROOM: [facility] : 1975 PCP: Per PT None ADMIT [...] Units Date/Time Fecal occult blood (in house) [[id number]] Collected: 04/24/18 1405 Specimen: Stool from Stool Updated: 04/25/18816 Fecal Occult Blood NEGATIVE C Difficile Only [[id number]] (Abnormal) Collected: 04/24/18 1405 Specimen: Stool Updated: 04/25/18816 [facility] ANTIGEN POSITIVE (A) TOXIN A & B POSITIVE (A) C DIFF INTERPRETATION Positive for toxigenic C.difficile, active toxin present. Urine culture [[id number]] Collected: 04/23/18 1251 Specimen: Urine from Urine, Catheter Updated: 04/24/18 1949 Specimen Description CATHETERIZED URINE CULTURE NO GROWTH Blood Culture Set 2 [[id number]] Collected: 04/23/18 0858 Specimen: Blood from Blood, peripheral draw Updated: 04/24/18 1214 Specimen Description BLOOD, PERIPHERAL DRAW SPECIAL REQUESTS LWRIST CULTURE NO GROWTH AT THIS TIME Blood Culture Set 1 [[id number]] Collected: 04/23/18 0851 Specimen: Blood from Blood, peripheral draw Updated: 04/24/18 1214 Specimen Description BLOOD, PERIPHERAL DRAW SPECIAL REQUESTS RAC CULTURE NO GROWTH AT THIS TIME CSF culture w/gram stain [[id number]] Collected: 04/20/18 1600 Specimen: Cerebrospinal Fluid from [...] MD, FACP 04/25/2018 11:35 AM Dictation software, [employer], used which may contain error for similar [...] Author: PARDEEP Serrato Service: (none) Author Type: Gas Distribution Plant Operator Filed: 04/25/1857 Date of Service: 04/25/18954 Status: Signed Floor Attendant: PARDEEP Serrato (Gas Distribution Plant Operator) 04/25/18 09 Discharge Planning Evaluation Admitting Diagnosis Cervical Myelopathy Anticipated Disposition Facility Type Other (Comment) ([facility]) A R COLLECTIONS REP p/c from Sweetie at [facility], regarding clinical update, asked how mu ch PT and OT would Pt receive when he [facility] to [facility]. Sweetie to find out and call melody posada DCP: [facility] JANET DOCKERY Gas Distribution Plant Operator [phone] cell onver antonio Star[employer], Provider Unknown - 04/25/2018 8:49 AM PST Nurse Progress Note by Traci Porter RN at 04/25/18 0801 Author: Traci Porter RN Service: (none) Author Type: Registered Nurse Filed: 04/25/18 1458 Date of Service: 04/25/1849 Status: Addendum Floor Attendant: Traci Porter RN (Registered Nurse) Related Notes: Original Note by Traci Porter RN (Registered Nurse) filed at 04/25/18 5336 8928 Staff assist was pressed by officers, pt [...] 1228 Date of Service: 04/25/18825 Status: Attested Floor Attendant: RAHEL Putnam (Physician Bench Precision Assembler - Certified) Cosigner: Elías alas MD at 04/25/18 1500 Attestation signed by Elías Joshi MD at 04/25/18 9133 Above note is reviewed and I agree with the assessment and plan as documented. I performed an interview and personally examined the patient. If any changes were needed, the note was updated and changes were discussed with the author. Surgery planning to take patient or OR. Will await results. Elías Joshi MD [facility] Gastroenterology 04/25/2018 [facility] Service: Gastroenterology Consult Progress Note Hospital [...] need for endoscopy at this point. RAHEL [facility] Gastroenterology 04/25/2018 Douglas Webb D O - 04/25/2018 7:59 AM PST Progress Notes by Douglas Logan DO at 04/25/18 0759 Author: Douglas Logan DO Service: Neurosurgery Author Type: Physician Filed: 04/25/1804 Date of Service: 04/25/18758 Status: Addendum Floor Attendant: Douglas Logan DO (Physician) Related Notes: Original [...] fusion C5-7. Patient unf rachtunately is a [facility] patient, and despite our insistence, was not offered postoperative foll owup and followed with the local [facility] physician. Patient states after surgical intervention , he had remarkable recovery with regards to resolution of bilateral upper extremity radicul opathy and increased strength in his bilateral hands, increased ambulation, balance, and cook frozen dessert rdination. Patient was doing rather well for approximately 6 to 8 months until he started h aving intermittent tingling down his left hand in the C6 and C7 dermatomal region. This has returned and increased in nature. He was evaluated by his [facility] physician, who correctly or dered a CT [...] few months ago. 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 Patient has been trying Neurontin; but because the [facility] controlled the s ubstances, not been getting it all the time. Patient does have what appears to be a lot of medical concerns for someone in [facility]. Admission Date - >04/19/2018 < - OR [...] PT/OT Douglas Logan D.O Board Certified Neurosurgeon [facility] Office onversion Transactio n, Provider Unknown - 04/24/2018 6:20 PM PST Nurse Progress Note by Tatum Cota RN at 04/24/181819 Author: Tatum Cota RN Service: (none) Author Type: Registered Nurse Filed: 04/24/181837 Date of Service: 04/24/181819 Status: Signed Floor Attendant: Tatum Cota RN (Registered Nurse) Patient had [...] Date of Service: 04/24/18 1607 Status: Signed Floor Attendant: Gissell Powell RPH (Pharmacist) Pharmacy Management for [...] 1728 Date of Service: 04/24/181537 Status: Signed Floor Attendant: Vikas Garcia PT (Physical Therapist) PHYSICAL THERAPY TREATMENT NOTE PT Received On: 04/24/18 Reason for Treatment: Spinal surgery (cervical laminectomy and foraminotomy) Requires PT Follow Up: Yes Focus for Next Treatment: Formal Balance Assessment, Equipment Trial (when appropriate for balance test, trial FWW with pt.) Recommendations: Prior Setting, PT, OT Equipment Recommended: None Barriers to Discharge: Physical Deficits Impacting Functional [place] Plan Treatment/Interventions: Continue per Primary PT POC [...] pass stance foot Assistive Device: Other (Comment) (HEADING AND PRIMING TOOL SETTER on therapist) BALANCE Static Sitting Balance Static [...] Notes by Elías Joshi MD at 04/24/18 8914 Author: Elías Joshi MD Service: Gastroenterology Author Type: Physician Filed: 04/24/18 9978 Date of Service: 04/24/181451 Status: Signed Floor Attendant: Elías Joshi MD (Physician) [facility] Service: Gastroenterology Consult Follow Up Note [...] status does not improve Elías Joshi MD [facility] Gastroenterology 04/24/2018 alMundo brady MD - 04/24/2018 9:57 AM PST Progress Notes by Mundo Ghosh MD at 04/24/18 03 Author: Mundo Ghosh MD Service: Hospitalist Author Type: Physician Filed: 04/24/18 9999 Date of Service: 04/24/18956 Status: Signed Floor Attendant: Mundo Ghosh MD (Physician) [facility] Service: Hospitalist Progress Note Pt: Matthias [...] Value Units Date/Time CSF culture w/gram stain [[id number]] Collected: 04/20/18 1600 Specimen: Cerebrospinal Fluid from CSF Updated: 04/24/18 0816 Specimen Description CEREBROSPINAL FLUID GRAM STAIN 3+ GRAM STAIN WBC'S SEEN GRAM STAIN NO ORGANISMS SEEN CULTURE NO GROWTH 4 DAYS Urine culture [[id number]] Collected: 04/23/18 1251 Specimen: Urine from Urine, Catheter Updated: 04/23/18 1937 Blood Culture Set 2 [[id number]] Collected: 04/23/18 0858 Specimen: Blood from Blood, peripheral draw Updated: 04/23/18 1033 Blood Culture Set 1 [[id number]] Collected: 04/23/18 0851 Specimen: Blood from Blood, peripheral draw Updated: 04/23/18 1033 MARCELL Prep - Fungal stain, CSF [[id number]] Collected: 04/20/18 1600 Specimen: Cerebrospinal Fluid from [...] MD, FACP 04/24/2018 9:57 AM Dictation software, [employer], used which may contain error for similar [...] 0649 Date of Service: 04/23/182352 Status: Signed Floor Attendant: Kortney Negron RN (Registered Nurse) 0660 took over patient care for Renée Cotton RN Chart check complete. Kortney Negron RN onver antonio Transaction, Provider Unknown - 04/23/2018 6:31 PM PST Nurse Progress Note by Tatum Cota RN at 04/23/181830 Author: Tatum Cota RN Service: (none) Author Type: Registered Nurse Filed: 04/23/181834 Date of Service: 02/23/19 1831 Status: Signed Floor Attendant: Tatum Cota RN (Registered Nurse) Patient had [...] Service: Pharmacy Author Type: Pharmacist Filed: 04/23/18 3780 Date of Service: 04/23/18 1253 Status: Addendum Floor Attendant: Jurgen Bowen RPH (Pharmacist) Related Notes: Original [...] Date of Service: 04/23/18 1100 Status: Signed Floor Attendant: Leigh Ann Hicks RN (Registered Nurse) Sepsis nurse following Douglas Webb DO - 04/23/2018 10:35 AM PSTFormatting of this note might be different from the or iginal. Progress Notes by Douglas Logan DO at 04/23/18 1035 Author: Douglas Logan DO Service: Neurosurgery Author Type: Physician Filed: 04/23/18 1247 Date of Service: 04/23/18 1035 Status: Addendum Floor Attendant: Douglas Logan DO (Physician) Related Notes: Original [...] fusion C5-7. Patient unf ortunately is a [facility] patient, and despite our insistence, was not offered postoperative foll owup and followed with the local [facility] physician. Patient states after surgical intervention , he had remarkable recovery with regards to resolution of bilateral upper extremity radicul opathy and increased strength in his bilateral hands, increased ambulation, balance, and cook frozen dessert rdination. Patient was doing rather well for approximately 6 to 8 months until he started h aving intermittent tingling down his left hand in the C6 and C7 dermatomal region. This has returned and increased in nature. He was evaluated by his [facility] physician, who correctly or dered a CT [...] few months ago. 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 Patient has been trying Neurontin; but because the [facility] controlled the s ubstances, not been getting it all the time. Patient does have what appears to be a lot of medical concerns for someone in [facility]. Admission Date - >04/19/2018 < - OR [...] time. Douglas Logan D.O Board Certified Neurosurgeon [facility] Office CT imaging of abdomen with [...] elevated. Douglas Logan D.O Board Certified Neurosurgeon [facility] Office onversion Transactio n, Provider Unknown - 04/23/2018 9:43 AM PST Case Management by PARDEEP Serrato at 04/23/18942 Author: PARDEEP Serrato Service: (none) Author Type: Gas Distribution Plant Operator Filed: 04/23/1846 Date of Service: 04/23/18942 Status: Addendum Floor Attendant: PARDEEP Serrato (Gas Distribution Plant Operator) Related Notes: Original Note by PARDEEP Serrato (Gas Distribution Plant Operator) filed at 04/23/1845 04/23/18899 Discharge Planning Evaluation Admitting Diagnosis Cervical Myelopathy Anticipated Disposition Facility Type Other (Comment) ([facility]) A R COLLECTIONS REP approached by Josi MORATAYA regarding discharge planning. Dr. Chaudhry does not recommend IPR admission, recommends outpatient PT and OT. A R COLLECTIONS REP followed up with Sweetie Membreno RN coordinator for [facility] asked if they ca n provide outpatient PT and OT when he returns back to the [facility]. Awaiting co nfirmation. DCP: [facility] [address], [place] [address] - [facility] number for nurse to nurse report is [phone] / - when medically ready. Social Bernardo SERRATO [phone] cell onver antonio Transaction, Provider Unknown - 04/23/2018 9:11 AM PST Therapy Progress Note by Vikas Garcia PT at 04/23/18 09 Author: Vikas Garcia PT Service: (none) Author Type: Physical Therapist Filed: 04/23/18 1026 Date of Service: 04/23/18910 Status: Signed Floor Attendant: Vikas Garcia PT (Physical Therapist) PHYSICAL THERAPY TREATMENT NOTE PT Received On: 04/23/18 Reason for Treatment: Spinal surgery (cervical laminectomy and foraminotomy) Requires PT Follow Up: Yes Focus for Next Treatment: Formal Balance Assessment Recommendations: Prior Setting Equipment Recommended: None Barriers to Discharge: Physical Deficits Impacting Functional [place], Self-care Defic its Impacting Functional [place], Cognitive Deficits Impacting Functional [place] Plan Treatment/Interventions: Continue per Primary PT POC [...] 1026 Date of Service: 04/23/18814 Status: Signed Floor Attendant: Mundo Gohsh MD (Physician) [facility] Service: Hospitalist Progress Note Pt: Matthias [...] Value Units Date/Time CSF culture w/gram stain [[id number]] Collected: 04/20/18 1600 Specimen: Cerebrospinal Fluid from CSF Updated: 04/22/18 1136 Specimen Description CEREBROSPINAL FLUID GRAM STAIN 3+ GRAM STAIN WBC'S SEEN GRAM STAIN NO ORGANISMS SEEN CULTURE NO GROWTH 2 DAYS MARCELL Prep - Fungal stain, CSF [[id number]] Collected: 04/20/18 1600 Specimen: Cerebrospinal Fluid from CSF Updated: 04/21/18 1255 Specimen Description CEREBROSPINAL FLUID CULTURE NO YEAST OR FUNGAL ELEMENTS SEEN CSF cell count with differential [[id number]] (Abnormal) Collected: 04/20/18 1600 Specimen: Cerebrospinal Fluid from Lumbar Puncture Updated: 04/20/182026 COLOR PINK APPEARANCE HAZY Tube Number, CSF 3 CSF RBC 17,675 (H) /mm3 CSF WBC 11 (H) /mm3 NEUTROPHILS 35 % LYMPHOCYTES 6 % CELLS COUNTED 41 Protein, CSF [[id number]] (Abnormal) Collected: 04/20/18 1600 Specimen: Cerebrospinal Fluid from Lumbar Puncture Updated: 04/20/182004 CSF TOTAL PROTEIN 55 (H) mg/dL Glucose, CSF [[id number]] (Abnormal) Collected: 04/20/18 1600 Specimen: Cerebrospinal Fluid from Lumbar Puncture Updated: 04/20/182004 CSF GLUCOSE 108 (H) mg/dL VDRL, CSF [[id number]] Collected: 04/20/18 1600 Specimen: Cerebrospinal Fluid from Lumbar Puncture Updated: 04/20/181856 CSF IgG index [[id number]] Collected: 04/20/18 1600 Specimen: Cerebrospinal Fluid from Lumbar Puncture Updated: 04/20/181856 Myelin basic protein, CSF [[id number]] Collected: 04/20/18 1600 Specimen: Cerebrospinal Fluid from Lumbar Puncture Updated: 04/20/181856 Angiotensin converting enzyme, CSF [[id number]] Collected: 04/20/181599 Specimen: Cerebrospinal Fluid from Lumbar Puncture Updated: 04/20/181856 HSV 1/2 detect/diff by rtpcr : for antigen testing on CSF, newborns & immuno-compromised. [[id number]] Collected: 04/20/181599 Specimen: Cerebrospinal Fluid from CSF Updated: 04/20/181856 Neuromyelitis optica IgG, CSF [[id number]] Collected: 04/20/181599 Updated: 04/20/181654 Diagnostic Imaging: Impressions [...] Problems: Fever: He was having a fever four h agent. Also having leukocytosis and tachycardia. I doubt [...] MD, FACP 04/23/2018 8:15 AM Dictation software, [employer], used which may contain error for similar [...] 04/23/18744 Date of Service: 04/23/18744 Status: Signed Floor Attendant: Antwon Barillas RN (Registered Nurse) Chart check complete. onver antonio Transaction, Provider Unknown - 04/22/2018 6:56 PM PST Nurse Progress Note by Tatum Cota RN at 04/22/181855 Author: Tatum Cota RN Service: (none) Author Type: Registered Nurse Filed: 04/22/181856 Date of Service: 04/22/181855 Status: Signed Floor Attendant: Tatum Cota RN (Registered Nurse) Patient had increased pain in middle of shift with HR in 150's and patient unable to stand still. Dr. Logan notified, valium ordered. Dr. Ghsoh notified for HR and propranolol ordere d. HR in 110's with patient currently resting comfortably. End of shift chart check compete. Tatum Cota RN onver antonio Transaction, Provider Unknown - 04/22/2018 1:49 PM PST Case Management by PARDEEP Serrato at 04/22/18 8802 Author: PARDEEP Serrato Service: (none) Author Type: Gas Distribution Plant Operator Filed: 04/22/18 2200 Date of Service: 04/22/18 4051 Status: Signed Floor Attendant: PARDEEP Serrato (Gas Distribution Plant Operator) 04/22/18 1300 Discharge Planning Evaluation Admitting Diagnosis Cervical Myelopathy Anticipated Disposition Facility Type Inpatient Rehabilitation A R COLLECTIONS REP p/c with Dr. Logan who states due to right arm paralysis s/p Cervical Laminectomy surg sage and needs a rehab stay at our Inpatient Rehabilitation Unit before [facility] on. Dr. Colindres states if Pt does not get accepted to [facility], the patient may stay in hospital f or an extended amount time to work with Physical Therapy. A R COLLECTIONS REP communicated with Ana Membreno, Coordinator with [facility] cell) regarding Inpatient Rehab consult with Dr. Wing Chaudhry. Pt is from [facility] in [facility]. [facility] ([facility]), [address] [place] [address] [facility] number for nurse to nurse report is [phone] / [facility]/[place] [facility] Hospitalization Instructions o Admission Notification: Ana Membreno RN, BSN |Facility Tools Administrator| [facility] [phone] Cell |[phone] | [address] | [place] [address] o Discharge Process: o Notify the [facility] Tools Administrator of anticipated discharge o For all inpatients and ambulatory surgery patients call accepting [facility]. (number s below) o Discharging MD to call [facility] provider for medical handover if MD feels there is pertinent information that needs to be discussed with the PCP. Contact information for the PCP can be obtained by calling the institution numbers below. o Nurse telephone report to receiving [facility] clinical staff. [facility] ([facility]), [address] [place] [address] [facility] number for nurse to nurse report is [phone] / o Chest pain patients that have ruled out go directly back to their correctional facility o If you have any questions or concerns, please call the [facility] Tools Administrator o Medical records to transfer back to [...] list of medications that comprise the offic [facility] formulary. This formulary is dynamic and was developed in collaboration with its Clinical Trial Head. The current [facility] formulary can be found on [facility] s website and [facility] link: [email or web address] Sourcebox. o The [facility] Tools Administrator is available to assist with formulary questions regarding discharge medications Claims: Appeals [facility] C/O [facility] APPEALS-[facility] [address] [address] [address] [place] [address] [place], [place] [address] (Claims paid per [facility] contract) DCP: Pending [facility] JANET DOCKERY, Gas Distribution Plant Operator [phone] cell Mundo Peng MD - 04/22/2018 9:20 AM PST Progress Notes by Mundo Ghosh MD at 04/22/18919 Author: Mundo Ghosh MD Service: Hospitalist Author Type: Physician Filed: 04/22/18 1217 Date of Service: 04/22/18919 Status: Signed Floor Attendant: Mundo Ghosh MD (Physician) [facility] Service: Hospitalist Progress Note Pt: Matthias Lambert AGE/SEX: 42 y.o. male ROOM: [address] [place] [address] : 1975 PCP: Per PT None ADMIT [...] Value Units Date/Time CSF culture w/gram stain [[id number]] Collected: 04/20/18 1600 Specimen: Cerebrospinal Fluid from CSF Updated: 04/21/18 1743 Specimen Description CEREBROSPINAL FLUID GRAM STAIN 3+ GRAM STAIN WBC'S SEEN GRAM STAIN NO ORGANISMS SEEN CULTURE NO GROWTH AT THIS TIME MARCELL Prep - Fungal stain, CSF [[id number]] Collected: 04/20/18 1600 Specimen: Cerebrospinal Fluid from CSF Updated: 04/21/18 1255 Specimen Description CEREBROSPINAL FLUID CULTURE NO YEAST OR FUNGAL ELEMENTS SEEN CSF cell count with differential [[id number]] (Abnormal) Collected: 04/20/18 1600 Specimen: Cerebrospinal Fluid from Lumbar Puncture Updated: 04/20/182026 COLOR PINK APPEARANCE HAZY Tube Number, CSF 3 CSF RBC 17,675 (H) /mm3 CSF WBC 11 (H) /mm3 NEUTROPHILS 35 % LYMPHOCYTES 6 % CELLS COUNTED 41 Protein, CSF [[id number]] (Abnormal) Collected: 04/20/181599 Specimen: Cerebrospinal Fluid from Lumbar Puncture Updated: 04/20/182004 CSF TOTAL PROTEIN 55 (H) mg/dL Glucose, CSF [[id number]] (Abnormal) Collected: 04/20/181599 Specimen: Cerebrospinal Fluid from Lumbar Puncture Updated: 04/20/182004 CSF GLUCOSE 108 (H) mg/dL VDRL, CSF [[id number]] Collected: 04/20/181599 Specimen: Cerebrospinal Fluid from Lumbar Puncture Updated: 04/20/181856 CSF IgG index [[id number]] Collected: 04/20/181599 Specimen: Cerebrospinal Fluid from Lumbar Puncture Updated: 04/20/181856 Myelin basic protein, CSF [[id number]] Collected: 04/20/181599 Specimen: Cerebrospinal Fluid from Lumbar Puncture Updated: 04/20/181856 Angiotensin converting enzyme, CSF [[id number]] Collected: 04/20/181599 Specimen: Cerebrospinal Fluid from Lumbar Puncture Updated: 04/20/181856 HSV 1/2 detect/diff by rtpcr : for antigen testing on CSF, newborns & immuno-compromised. [[id number]] Collected: 04/20/181599 Specimen: Cerebrospinal Fluid from CSF Updated: 04/20/181856 Neuromyelitis optica IgG, CSF [[id number]] Collected: 04/20/18 1600 Updated: 04/20/18 165 MRSA by PCR [[id number]] Collected: 04/19/182108 Specimen: Nasopharyngeal from Nares(Nose) Updated: [...] MD, FACP 04/22/2018 9:20 AM Dictation software, [employer], used which may contain error for similar [...] 04/23/1835 Date of Service: 04/22/18732 Status: Signed Floor Attendant: Douglas Logan DO (Physician) Neurosurgery Progress Note [...] fusion C5-7. Patient unf ortunately is a [facility] patient, and despite our insistence, was not offered postoperative foll owup and followed with the local [facility] physician. Patient states after surgical intervention , he had remarkable recovery with regards to resolution of bilateral upper extremity radicul opathy and increased strength in his bilateral hands, increased ambulation, balance, and cook frozen dessert rdination. Patient was doing rather well for approximately 6 to 8 months until he started h aving intermittent tingling down his left hand in the C6 and C7 dermatomal region. This has returned and increased in nature. He was evaluated by his [facility] physician, who correctly or dered a CT [...] few months ago. 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 Patient has been trying Neurontin; but because the [facility] controlled the s ubstances, not been getting it all the time. Patient does have what appears to be a lot of medical concerns for someone in [facility]. Admission Date - >04/19/2018 < - OR [...] time. Douglas Logan D.O Board Certified Neurosurgeon [facility] Office Kerry Clay MD - 04/21/2018 2:07 PM PST Progress Notes by Kerry Subramanian MD at 04/21/18 3139 Author: Kerry Subramanian MD Service: Neurology Author Type: Physician Filed: 04/21/18 1610 Date of Service: 04/21/18 1407 Status: Signed Floor Attendant: Kerry Subramanian MD (Physician) [facility] Service: Neurology Follow up Note Date [...] at this poin t, traumatic tap vs SPINNER OPERATOR hemorrhage. The rest of the CSF study [...] at this poin t, traumatic tap vs SPINNER OPERATOR hemorrhage. The rest of the CSF studies [...] He may benefit from additional opinion from [facility]. Current management per Dr. Logan and Stator Plate Washer. Please call neuro on-call for any new [...] Service: Neurosurgery Author Type: Physician Filed: 04/21/18 7111 Date of Service: 04/21/18 1401 Status: Signed Floor Attendant: Douglas Logan DO (Physician) Neurosurgery Progress Note [...] fusion C5-7. Patient unf rachtunately is a [facility] patient, and despite our insistence, was not offered postoperative foll owup and followed with the local [facility] physician. Patient states after surgical intervention , he had remarkable recovery with regards to resolution of bilateral upper extremity radicul opathy and increased strength in his bilateral hands, increased ambulation, balance, and cook frozen dessert rdination. Patient was doing rather well for approximately 6 to 8 months until he started h aving intermittent tingling down his left hand in the C6 and C7 dermatomal region. This has returned and increased in nature. He was evaluated by his [facility] physician, who correctly or dered a CT [...] few months ago. 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 Patient has been trying Neurontin; but because the [facility] controlled the s ubstances, not been getting it all the time. Patient does have what appears to be a lot of medical concerns for someone in [facility]. Admission Date - >04/19/2018 < - OR [...] expressed frustration of these neurologic attacks as arrno moreno has had this happen in the past with his vision/seizures/headaches and wants to obtain a d iagnosis. 7. Steroid dose wean to PO. It is a pleasure being involved in this patients care should any questions or concerns jeff e feel free to contact me at any time. Douglas Logan D.O Board Certified Neurosurgeon [facility] Office onversion Transactprincess n, Provider Unknown - 04/21/2018 10:51 AM PST Case Management by PARDEEP Nuñez at 04/21/18 1051 Author: PARDEEP Nuñez Service: (none) Author Type: Gas Distribution Plant Operator Filed: 04/21/18 105 Date of Service: 04/21/18 105 Status: Signed Floor Attendant: PARDEEP Nuñez (Gas Distribution Plant Operator) PARDEEP CM attended morning rounds. Followed by Dr. Colindres and carlos. Madelyn Roque ARNP - 04/21/2018 7:27 AM PSTFormatting of this note might be different from th e original. Progress Notes by DELANEY Robb at 04/21/18726 Author: DELANEY Robb Service: Stator Plate Washer Author Type: Advanced Registered Korina se Practitioner Filed: 04/21/18 0805 Date of Service: 04/21/18726 Status: Signed Floor Attendant: DELANEY Robb (Advanced Registered Nurse Practitioner) [facility] Service: Stator Plate Washer Progress Note [facility] 42 [facility] [...] Date of Service: 04/20/18 1630 Status: Signed Floor Attendant: Kerry Subramanian MD (Physician) [facility] Service: Neurology Follow up Note Date [...] signal throughout the cervical cord with mostly llaens matter involvement from C1 to upper T [...] Notes by Douglas Logan DO at 04/20/18 3164 Author: Douglas Logan DO Service: Neurosurgery Author Type: Physician Filed: 04/20/18 1515 Date of Service: 04/20/18 1504 Status: Signed Floor Attendant: Douglas Logan DO (Physician) Neurosurgery Progress Note - Post Operative Provider: Douglas Logan DO Date : 04/20/2018 3:04 PM Referring Provider: Code Status: Full Code Hospital Day: LOS: 1 day Patient ID: [id number] Matthias Lambetris a 41 y.o.malewith severe cervical stenosis status [...] fusion C5-7. Patient rolan delucaunately is a [facility] patient, and despite our insistence, was not offered postoperative foll owup and followed with the local [facility] physician. Patient states after surgical intervention , he had remarkable recovery with regards to resolution of bilateral upper extremity radicul opathy and increased strength in his bilateral hands, increased ambulation, balance, and cook frozen dessert rdination. Patient was doing rather well for approximately 6 to 8 months until he started h aving intermittent tingling down his left hand in the C6 and C7 dermatomal region. This has returned and increased in nature. He was evaluated by his [facility] physician, who correctly or dered a CT [...] few months ago. 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 Patient has been trying Neurontin; but because the [facility] controlled the s ubstances, not been getting it all the time. Patient does have what appears to be a lot of medical concerns for someone in [facility]. Admission Date - >04/19/2018 < - OR [...] time. Douglas Logan D.O Board Certified Neurosurgeon [facility] Office onversion Transactio n, Provider Unknown - 04/20/2018 2:58 PM PST Progress Notes by Jurgen Bowen RPH at 04/20/181457 Author: Jurgen Bowen RPH Service: Pharmacy Author Type: Pharmacist Filed: 04/20/181457 Date of Service: 04/20/181457 Status: Signed Floor Attendant: Jurgen Bowen RPH (Pharmacist) Renal Dosing Monitoring: [...] Author: PARDEEP Nuñez Service: (none) Author Type: Gas Distribution Plant Operator Filed: 04/20/18 1134 Date of Service: 04/20/181126 Status: Signed Floor Attendant: PARDEEP Nuñez (Gas Distribution Plant Operator) PARDEEP CM attended morning rounds. C7 fusion with Dr. Colindres. Pt is a [facility] from [facility]. Madelyn Roque ARNP - 04/20/2018 9:00 AM PSTFormatting of this note might be different from th e original. Progress Notes by DELANEY Robb at 04/20/18 0900 Author: DELANEY Robb Service: Stator Plate Washer Author Type: Advanced Registered Korina se Practitioner Filed: 04/20/181931 Date of Service: 04/20/18899 Status: Signed Floor Attendant: DELANEY Robb (Advanced Registered Nurse Practitioner) [facility] Service: Stator Plate Washer Progress Note [facility]th[facility] Lambert 42 [facility].o[facility] Hospital [...] Date of Service: 04/19/18 1104 Status: Addendum Floor Attendant: Oswaldo Paula RN (Registered Nurse) Related Notes: Original Note by Oswaldo Paula RN (Registered Nurse) filed at 04/19/18 9318 11:05 AM Patient able to move right [...] Note by Isabella Bruno RN at 04/19/18 7213 Author: Isabella Bruno RN Service: (none) Author Type: Registered Nurse Filed: 04/19/18 0806 Date of Service: 04/19/18 0750 Status: Signed Floor Attendant: Isabella Bruno RN (Registered Nurse) Preformed the [...] at | | | | | | [facility];[address] | [address];[place] [address] | | | | + + + [...] EXTERNAL | | | | performed at [facility] | | LAB | | | | [address];[place] | | | | | | [address] | | | | + + + [...] EXTERNAL | | | | performed at [facility];[address] | | LAB | | | | [facility];[place], [place] | | | | | | [address] | | | | + + + [...] | | | | | | MDRD IDHI traceable | | | | | | equation.Testing | | | | | | performed at [facility];[address] | | | | | | [facility];[place], [place] | | | | | | [address] | | | | + + + [...] LAB | | | | performed at [facility], [address] | | | | | | [facility], | | | | | | [place] [address] | | | | | | | [...] | | | | | [place] [address] | | | | + + + [...] EXTERNAL | | | | performed at [facility], [address] | | LAB | | | | [address], | | | | | | [place] [address] | | | | + + + [...] | | | | | performed at [facility], [address] | | | | | | [facility], | | | | | | [place] [address] | | | | + + + [...] at | | | | | | [facility], [address] [place] [address] | | | | | | [place] | | | | | | [address] | | | | + + + [...] EXTERNAL | | | | performed at [facility], [address] | | LAB | | | | [place] [address], | | | | | | [place] [address] | | | | + + + [...] | | | | | [place] [address] | | | | + + + [...] | | | | | performed at [facility], [address] | | | | | | [facility], | | | | | | [place] [address] | | | | + + + [...] at | | | | | | [facility], [address] | | | [...] EXTERNAL | | | | performed at [facility], [address] | | LAB | | | | [place], | | | | | | [place] [address] | | | | + + + [...] EXTERNAL | | | | performed at [facility], [address] | | LAB | | | | [place], | | | | | | [place] [address] | | | | + + + [...] | | | | | performed at [facility], [address] | | | | | | [facility], | | | | | | [place] [address] | | | | + + + [...] at | | | | | | [facility], [address] [place] [address] | | | | | | [facility], [place] | | | | | | [address] | | | | + + + [...] EXTERNAL | | | | performed at [facility], [address] | | LAB | | | | [place], | | | | | | [place] [address] | | | | + + + [...] | | | | | [place] [address] | | | | + + + [...] | | | | | performed at [facility], [address] | | | | | | [place] [address], | | | | | | [place] [address] | | | | + + + [...] at | | | | | | [facility];[address];[place] [address] | | | | + + + [...] EXTERNAL | | | | performed at [facility] | | LAB | | | | [place] | | | | | | [address] | | | | + + + [...] EXTERNAL | | | | performed at [facility];[address] | | LAB | | | | [facility];[place], [place] | | | | | | [address] | | | | + + + [...] | | | | | | MDRD IDHI traceable | | | | | | equation.Testing | | | | | | performed at [facility];[address] | | | | | | [facility];[place], [place] | | | | | | [address] | | | | + + + [...] at | | | | | | [facility], [address] [place] [address] | | | | | | [place] | | | | | | [address] | | | | + + + [...] | | | | | [place] [address] | | | | + + + [...] EXTERNAL | | | | performed at [facility], [address] | | LAB | | | | [place] [address], | | | | | | [place] [address] | | | | + + + [...] W | | | | | | [facility], | | | | | | [place] [address] | | | | + + + [...] EXTERNAL | | | | performed at [facility];[address] | | LAB | | | [address];[place], [place] | | | | | | [address] | | | | + + + [...] nodes are grossly identified. | | | Rail Bender sections are submitted in fourteen cassettes. | [...] | | | interpretation was performed by [facility] | | | [address] [address] (Medical | | | Director: Raji Palumbo M.D.; CLIA#: [id number]). The technical | | | component was performed by [facility], [address] [place] [address], | | | [facility] [address] (Glycerin Operator: Basia De La Garza MD; CLIA# [id number]). | | | Diagnostician: Raji Palumbo MD [...] | | | | | L, [address] [facility] | | | | | | [place] | | | | | | [address] | | | | + + + [...] | | | | | performed at [facility], [address] | | | | | | [place]ie [facility], | | | | | | [place] [address] | | | | + + + [...] | | | | | performed at [facility], [address] | | | | | | [place] [address], | | | | | | [place] [address] | | | | + + + [...] | | | | | performed at [facility], [address] | | | | | | [facility], | | | | | | [place] [address] | | | | + + + [...] EXTERNAL | | | | performed at [facility];888 | mmol/L | LAB | | | | [address];[place], [place] | | | | | | [address] | | | | + + + [...] EXTERNAL | | | | performed at [facility];888 | mmol/L | LAB | | | | [address];[place], [place] | | | | | | [address] | | | | + + + [...] | | | | | | at [facility];[address] [facility] | | | | | | [facility];[place] [address] | | | | + + + [...] at | | | | | | [facility], [address] [facility] | | | | | | [place] | | | | | | [address] | | | | + + + [...] EXTERNAL | | | | performed at [facility], [address] | | LAB | | | | [place], | | | | | | [place] [address] | | | | + + + [...] EXTERNAL | | | | performed at [facility], [address] | | LAB | | | | [place], | | | | | | [place] [address] | | | | + + + [...] | | | | | performed at [facility], [address] | | | | | | [place], | | | | | | [place] [address] | | | | + + + [...] C.difficile, active toxin present. Testing performed at [facility];[address] [place] [address] | | | [place] [address] | | + + + + +---------+ [...] | EXTERNAL LAB | | performed at [facility];[address] [place] [address];[place] [address] | | + + + + +---------+ [...] EXTERNAL | | | | performed at [facility];[address] | mmol/L | LAB | | | | [place] | | | | | | [address] | | | | + + + [...] [place] | | | | | | [address] | | | | + + + [...] EXTERNAL | | | | performed at [facility], [address] | | LAB | | | | [address], | | | | | | [place] [address] | | | | + + + [...] | | | | | [place] [address] | | | | + + + [...] | | | | | performed at [facility], [address] | | | | | | [facility], | | | | | | [place] [address] | | | | + + + [...] EXTERNAL | | | | performed at [facility];888 | mmol/L | LAB | | | | [place] | | | | | | [address] | | | | + + + [...] EXTERNAL | | | | performed at [facility];888 | mmol/L | LAB | | | | [place] | | | | | | [address] | | | | + + + [...] EXTERNAL | | | | performed at [facility], [address] | | LAB | | | | [place], | | | | | | [place] [address] | | | | + + + [...] - 1.030 | EXTERNAL | | | [place] | | | LAB | | + [...] | | | Urine | performed at [facility], [address] | | LAB | | | | [address] | | | | | | [place] [address] | | | | + + + [...] | | | | | | at [facility];[address] [place] [address] | | | | | | [facility];[place] [address] | | | | + + + [...] LAB | | | | performed at [facility];[address] | | | | | | [address];[place] | | | | | | [address] | | | | + + + [...] EXTERNAL | | | | performed at [facility];[address] | | LAB | | | | [place] | | | | | | [address] | | | | + + + [...] [place] | | | | | | [address] | | | | + + + [...] EXTERNAL | | | | performed at [facility], [address] | | LAB | | | | [place], | | | | | | [place] [address] | | | | + + + [...] | | | | | [place] [address] | | | | + + + [...] | | | | | performed at [facility], [address] | | | | | | [place], | | | | | | [place] [address] | | | | + + + [...] LAB | | | | performed at [facility], [address] | | | | | | [place], | | | | | | [place] [address] | | | | | | | [...] EXTERNAL | | | | performed at [facility], [address] | | LAB | | | | [place], | | | | | | [place] [address] | | | | + + + [...] EXTERNAL | | | | performed at [facility], [address] | | LAB | | | | [place], | | | | | | [place] [address] | | | | + + + [...] | | | | | performed at [facility], [address] | | | | | | [facility], | | | | | | [place] [address] | | | | + + + [...] | | | | TCL, [address] [facility] | | | | | | [place] | | | | | | [address] | | | | + + + [...] EXTERNAL | | | | performed at [facility];[address] | mmol/L | LAB | | | | [address];[place], [place] | | | | | | [address] | | | | + + + [...] EXTERNAL | | | | performed at [facility];[address] | | LAB | | | | [place] | | | | | | [address] | | | | + + + [...] EXTERNAL | | | | performed at [facility];[address] | | LAB | | | | [address];[place], [place] | | | | | | [address] | | | | + + + [...] | | | | | performed at [facility];[address] | | | | | | [facility];[place], [place] | | | | | | [address] | | | | + + + [...] See Compliance Statement B: | | | [email or web address] Testing performed at [facility], [address] | | | [address] [facility], [place] [address] | | + + + + +---------+ + + | Performing | Address | City/State/[facility] | Phone Number | | [...] EXTERNAL LAB | | Testing performed at [facility];[address] [place] [address];[place] [address] HSV DNA | | | Type 1 Negative Reference range: | | | Negative HSV DNA Type 2 Negative | | | Reference range: Negative This test was developed and its performance | | | characteristics determined by [facility]. It has not been | | | [...] [facility], [address] | | | [place] [address] | | + + + + +---------+ [...] range: 0.0 to 8.6 Testing performed by [address] | | | [place] [address] ALBUMIN,CSF | | | 34 Reference range: 11 to 48 Testing performed | | | by [facility] [address] [place] [address] IgG | | | 917 Reference range: 700 | | | to 1600 Testing performed at [facility], [facility] [address], [place] [address] | | | [place] [address] Albumin 3.8 | | | Reference range: 3.5 to 5.5 Unit: g/dL Testing performed at | | | [facility], [address], [place] [address], [facility] [address] CSF, IGG/ALB, | | | RATIO 0.16 Reference range: 0.00 to | | | 0.25 CSF/SERUM INDEX 0.7 | | | Reference range: 0.0 to 0.7 Testing performed by [address] | | | [place] [address] | | + + + + +---------+ [...] CSF 3 CSF RBC | | | [address] High CSF WBC | | | 11 High NEUTROPHILS | | | 35 LYMPHOCYTES | | | 6 CELLS COUNTED | | | [address] [facility];[address] | | | [place] [address] | | + + + + +---------+ [...] | range: Non Dina:<1:1 Testing performed by [facility], [address], | | | [place] [address] | | + + + + +---------+ [...] EXTERNAL LAB | | Testing performed at [facility];[address] [facility];[place] [address] | | + + + + +---------+ [...] only by the assay's | | | monument stonecutter. The performance characteristics of this product have | | | not been established. Results should not be used as a diagnostic | | | procedure without confirmation of the diagnosis by another medically | | | established diagnostic product or procedure. Testing performed by | | | [facility], [address] [facility] [address] | | + + + + +---------+ [...] EXTERNAL LAB | | Testing performed at [facility];[address] [facility];[place] [address] | | + + + + +---------+ [...] PERFORMED | EXTERNAL LAB | | TEST: [id number] JUAN, CSF Shared serum was thawed for other testing, and | | | could not be used. Lorin Bess notified testing not performed. | | | 04/28/2018 Testing performed at [facility], [address] [facility], | | | [place] [address] | | + + + + +---------+ [...] LAB | | | | performed by [facility], | | | | | | [address], | | | | | | [facility] [address] | | | | + + + + + + | Albumin, | 31Comment: Reference | mg/dL | EXTERNAL | | | CSF | range: 11 to 48Testing | | LAB | | | | performed by [facility], | | | | | | [address], | | | | | | [facility] [address] | | | | + + + + + + | Immunoglobu | 819Comment: Reference | mg/dL | EXTERNAL | | | dragan IgG | range: 700 to | | LAB | | | | 1600Testing performed at | | | | | | [facility], [address], | | | | | | [address] | | | | | | [address] | | | | + + + + + + | Albumin | 3.2 (L)Comment: | g/dL | EXTERNAL | | | | Reference range: 3.5 to | | LAB | | | | 5.5Testing performed at | | | | | | [facility], [address], | | | | | | [place] [address], [facility] | | | | | | [address] | | | | + + + [...] a | | | | | | SPINNER OPERATOR demyelinating | | | | | | [...] Pathol | | | | | | 120(1):[phone]].Dereje | | | | | | goclonal [...] | | | | | performed by [facility], | | | | | | [address], | | | | | | [place] [address] | | | | + + + [...] | | | | | performed by [facility], | | | | | | [address] [facility], | | | | | | [facility] [address] | | | | + + + [...] axial T1, | | sagittal STIR, axial Z6yeanigku, and sagittal T1 enhanced sequences.Contrast: 8.5 | [...] at | | | | | | [facility];[address] [place] [address] | | | | | | [facility];[place] [address] | | | | + + + [...] | | | | | performed at [facility] | | | | | | [facility];[place], [place] | | | | | | [address] | | | | + + + [...] NEGATIVE Testing | | | performed at [facility];[address] [facility];[place] [address] | | + + + + +---------+ [...] | | | Patient | performed at [facility];[address] | | LAB | | | | [address];[place], [place] | | | | | | [address] | | | | + + + [...] | | | | | performed at [facility] | | | | | | [facility];[place], [place] | | | | | | [address] | | | | + + + [...] | | | Basophils | performed at [facility];[address] | K/uL | LAB | | | | [place], [place] | | | | | | [address] | | | | + + + [...] | | | | | performed at [facility];[address] | | | | | | [facility];[place], [place] | | | | | | [address] | | | | + + + [...]
--- OUTSIDE RECORDS SUMMARY | ~2019-02-14 | XMS | Clinical Summary ---
Demographics + + + | Address | [address] | | | [place] [address] | + + + | Home Phone | | + + + | Preferred Language | Unknown | + + + | Marital Status | Unknown | + + + | Christian Affiliation | Unknown | + + + | Race | Unknown | + + + | Ethnic Group | Unknown | + + + Author + + + | Author | [facility] (Historical as of | | | 10-15-18) | + + + | Organization | [facility] (Historical as of | | | 10-15-18) [...] Team Providers + +------+ + | Care Casework Manager Name | Role | Phone | [...] N/A: | [employer] | | 08/11/ | [id number] | | 11/27/2016 by Douglas Logan, | | Spine | | | 2024 | 4 / | | DO | | Cervic | | | | /[id number] | | | | al | | | | 583 | + +------+--------+ +--------+--------+--------+ | End CapImplanted: Qty: 1 on | | N/A: | [employer] | | 09/07/ | [id number] | | 11/27/2016 by Douglas Logan, | | Spine | | | 2024 | 4 / | | DO | | Cervic | | | | /[id number] | | | | al | | | | 151 | + +------+--------+ +--------+--------+--------+ | Algrft Bone Dbm Putty Dbx | | N/A: | MTF - | | 07/28/ | [id number] | | 1.0c - | | Spine | SYNTHES - | 2018 | | | [id number]: | | Cervic | MTFS | | | /[id number] | | Qty: 1 on 11/27/2016 by | | al | | | | [id number] | | Douglas Logan, DO | | | | | | [id number] | | | | | | | | 3 / | + +------+--------+ +--------+--------+--------+ | Plate Francisco V-Elite 37.5 2l | | N/A: | [facility] - | | | [id number] | | Cerv - [id number]: | | Spine | MEDT | | | | | Qty: 1 on 11/27/2016 by | | Joeic | | | | | | Douglas Logan DO | | al | | | | | + +------+--------+ +--------+--------+--------+ | Screw Slf-Drl V/A 4.0x14mm - | | N/A: | [facility] - | | | [id number] | | [id number]: Qty: 2 on | | Spine | MEDT | | | | | 11/27/2016 by Doreen, | | Jean Paul | | | | | | DO Douglas | | al | | | | | + +------+--------+ +--------+--------+--------+ | Screw Slf-Drl V/A 4.0x15mm - | | N/A: | [facility] - | | | [id number] | | [id number]: Qty: 2 on | | Spine | MEDT | | | | | 11/27/2016 by Doreen, | | Joeic | | | | | | DO Douglas | | al | | | | | + +------+--------+ +--------+--------+--------+ | Screw Slf-Drl V/A 4.0x16mm - | | N/A: | [facility] - | | | [id number] | | [id number]: Qty: 2 on | | Spine | [...] +------+-------+---------+ | [facility] | FC-COR | [id number] | | | | | | RECTIO [...] Other | [birth year] | Home: | [address] | | [place] | tional | | 1976 | [phone] | [place] | | | | | | [address] | [address] | | | Facili | | | | | | | ty | | | | | + +--------+ +--------+ + + | SHANE LAMBERT | Person | Self | [birth year] | Home: | [address] [place] [address] | | | germaine/Harish | | 1976 | [phone] | [place] [address] | | | alondra | | | [address] | | + +--------+ +--------+ + +
--- OUTSIDE RECORDS SUMMARY | ~2019-02-14 | XMS | Encounter Summary ---
Demographics + + + | Address | [address] [place] [address] | | | [place] [address] | + + + | Home Phone | | + + + | Preferred Language | Unknown | + + + | Marital Status | Unknown | + + + | Quaker Affiliation | Unknown | + + + [...] Team Providers + +------+ + | Care Script Artist Name | Role | Phone | + +------+ + | No, Physician | PCP | Unavailable | + +------+ + Encounter Details +--------+ + + + + | Date | Type | Department | Care Team | Description | +--------+ + + + + | 02/01/ | Hospital | [facility] | Tawana Gan, | Weakness; Muscle | | 2019 | Encounter | [facility] XRAY | MULTI PUNCH OPERATOR [address] | weakness | | | | [address] | [place], [place] | (generalized); | | | | [place], [place] | [address] | Acquired diplegia | | | | [address] | [phone] | (HCC) | | | | [phone] | | | | | | | 1, [facility] Rad Nurse | | | | | | Radiologist, [facility] Xr | | +--------+ + + + [...] you may contact the Radiology nurse at( [phone], ext. [phone] . documented in this encounter Medications at [...] + + | Performing | Address | City/State/[facility] | Phone Number | | Organization | [...] [facility] | | | | performed at [facility] | | LABORATORY | | | | [address];[place], [place] | | | | | | [address] | | | | + + + + + + + + | Specimen | + + | Blood | + + + + + + + | Performing | Address | City/State/Zipcode | Phone Number | | Organization | | | | + + + + + | [facility] | [address] | [place] [address] | [phone] | + + + + + Protime INR (02/01/2019 11:43 AM PST) + + + + + + | Component | Value | Ref Range | Performed | Pathologist | | | | | At | Signature | + + + + + + | INR | 1.0Comment: REFERENCE | | [facility] | | | | RANGE:0.9 - [...] | | | | | performed at [facility] | | | | | | [facility];[place], [place] | | | | | | [address] | | | | + + + + + + + + | Specimen | + + | Blood | + + + + + + + | Performing | Address | City/State/Zipcode | Phone Number | | Organization | | | | + + + + + | [facility] | [address] [facility] | [place] [address] | [phone] | + + + + + PTT (02/01/2019 11:43 AM PST) + + + + + + | Component | Value | Ref Range | Performed | Pathologist | | | | | At | Signature | + + + + + + | PTT | 26Comment: Testing | 23 - 32 seconds | [facility] | | | | performed at [facility];[address] | | LABORATORY | | | | [address];[place], [place] | | | | | | [address] | | | | + + + + + + + + | Specimen | + + | Blood | + + + + + + + | Performing | Address | City/State/Zipcode | Phone Number | | Organization | | | | + + + + + | [facility] | [address] | [place] [address] | [phone] | + + + + + documented [...]
--- OUTSIDE RECORDS SUMMARY | ~2019-02-14 | XMS | Encounter Summary ---
Demographics + + + | Address | [address] [place] [address] | | | [place] [address] | + + + | Home Phone | | + + + | Preferred Language | Unknown | + + + | Marital Status | Unknown | + + + | Sabianist Affiliation | Unknown | + + + | Race | Unknown | + + + | Ethnic Group | Unknown | + + + Author + + + | Author | [facility] | | | and [place] | + + + | Organization | [facility] | | [...] Team Providers + +------+ + | Care Stationary Engineer Refrigeration Name | Role | Phone | + [...] Provider Unknown | | | | | [place] | | | | | | [address] | (Fax) | | | | | [phone] | | | +--------+ + + + [...]
--- OUTSIDE RECORDS SUMMARY | ~2019-02-14 | XMS | Encounter Summary ---
Demographics + + + | Address | [address] [place] [address] | | | [place] [address] | + + + | Home Phone | | + + + | Preferred Language | Unknown | + + + | Marital Status | Unknown | + + + | Sabianism Affiliation | Unknown | + + + | Race | Unknown | + + + | Ethnic Group | Unknown | + + + Author + + + | Author | [facility] | | | and [place] | + + + | Organization | [facility] | | | and [...] Team Providers + +------+ + | Care Hand Trucker Name | Role | Phone | + +------+ + | No, Physician | PCP | Unavailable | + +------+ + Encounter Details +--------+---------+ + + + | Date | Type | Department | Care Team | Description | +--------+---------+ + + + | 11/01/ | Office | [facility] | Fidelina, | Surgery follow-up | | 2019 | Visit | GENERAL SURGERY [address] | [address] | (Primary Dx); | | | | [address] | [address] | Infectious colitis | | | | [place] | [place] [address] | | | | | [address] | [phone] | | | | | [phone] | | | +--------+---------+ + + + [...]
--- OUTSIDE RECORDS SUMMARY | ~2019-02-14 | XMS | Encounter Summary ---
Demographics + + + | Address | [address] [place] [address] | | | [place] [address] | + + + | Home Phone [...] + + + | Author | [facility] | | | and [place] | + + + | Organization | [facility] | | | and [...] Team Providers + +------+ + | Care Community Reinvestment Act Officer Name | Role | Phone | [...] | | | | [facility] [place] | | | | | | [address] | (Fax) | | | | | [phone] | | | +--------+ + + + [...]
--- OUTSIDE RECORDS SUMMARY | ~2019-02-14 | XMS | Encounter Summary ---
Demographics + + + | Address | [address] [place] [address] | | | [place] [address] | + + + | Home Phone [...] Team Providers + +------+ + | Care Registered Nurse Step Down Name | Role | Phone | + [...] | | | | | Muscle | RIGGER APPRENTICE [address] | MEDICAL | | | | | weakness | [facility] [address] | | | | | (generalized | [place], | [address] | | | | | ) Acquired | [place] | [place]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 | [address] | [address] | | | | | (HCC) | Phone: | Phone: | | | | | Procedures | [phone] | [phone] | | | | | CT | Fax: | Fax: | | | | | Myelography | [phone] | [phone] | | | | | Cervical | [...] | | | | | Muscle | RIGGER APPRENTICE [address] | MEDICAL | | | | | weakness | [facility] [address] | | | | | (generalized | [place], | [address] | | | | | ) Acquired | [place] | [place]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 | [address] | [address] | | | | | ([facility]) | Phone: | Phone: | | | | | Procedures | [phone] | [phone] | | | | | CT | Fax: | Fax: | | | | | Myelography | [phone] | [phone] | | | | | Cervical | | | | | | | Spine | | | +--------+--------+ + + + + Encounter Details +--------+ + + + + | Date | Type | Department | Care Team | Description | +--------+ + + + + | 02/01/ | Hospital | [facility] | Tawana Gan, | Weakness; Muscle | | 2019 | Encounter | [facility] CT | RIGGER APPRENTICE [address] | weakness | | | | [address] | [place] | (generalized); | | | | [place] | [address] | Acquired diplegia | | | | [address] | [phone] | ([facility]) | | | | [phone] | | | +--------+ + + + [...] and posterior decompressive | | | laminectomies. Ksha-sd-ihsbwndc bilateral neural foraminal | | | narrowing. No central canal stenosis. C6-C7: Postsurgical change | | | with anterior fusion and posterior decompressive laminectomy. | | | Oazv-jg-idsxdbxo bilateral neural foraminal narrowing. No central | [...] fusion and posterior | | decompressive laminectomies. Qlfa-ff-ucafogud bilateral neural | | foraminal narrowing. No central canal stenosis. | | | | C6-C7: Postsurgical change with anterior fusion and posterior | | decompressive laminectomy. Citk-wg-cjholnzu bilateral neural foraminal | | narrowing. No [...]
--- OUTSIDE RECORDS SUMMARY | ~2019-02-14 | XMS | Encounter Summary ---
Demographics + + + | Address | [address] [place] [address] | | | [place] [address] | + + + | Home Phone [...] Team Providers + +------+ + | Care Health Practice Manager Name | Role | Phone | + +------+ + PCP | Unavailable | + +------+ + Encounter Details +--------+ + + + + | Date | Type | Department | Care Team | Description | +--------+ + + + + | 11/27/ | Hospital | [facility] | Douglas Logan DO | Cervical spinal | | 2017 - | Encounter | CENTER SURGICAL [address] | [address] | stenosis; Cervical | | | | [address] | [address] | radiculopathy at C7; | | 11/29/ | | [address] | [place] [address] | Cervical | | 2017 | | [address] | [phone] | radiculopathy at C6; | | | | [phone] | | DDD (degenerative | | | [...] 11/29/161051 Date of Service: 11/29/161049 Status: Signed Carrier Associate: Douglas Logan DO (Physician) Neurosurgery Discharge Summary [facility] Neurosurgery Provider: Douglas Logan DO Date : 11/29/2016 10:50 AM Referring Provider: Hospital Day: LOS: 0 days Date of Admission: 11/27/2016 Date of Discharge: 11/29/2016 Discharge Physician: Douglas Logan Treatment Team: Treatment Team: Admitting Provider: Douglas Logan DO Final / [...] - ANTERIOR; Surgeon: Douglas Logan DO; Location: [facility] MAIN OR; Service: Neurosurgery; Laterality: [...] Muscle Strength: Right Left Upper Extremity: 5/5 Tableau Analyst +4/5 5/5 Tableau Analyst +4/5 Lower Extremity: 5/5 5/5 Wound:Clean, dry, [...] BLOODU, KETONES, BILIRUBINUR, GLUCOSEU PLAN Return [facility] care home [facility]. Patient should continue cervical collar at all [...] least a period of 2-3 months. Disposition: ALF Condition: Stable Code Status: Full Code No discharge procedures on file. Possible Follow Up Numbers: Per Pt None [place] Medication List START taking these medications [...] summary. Douglas Logan D.O Board Certified Neurosurgeon [facility] Neuroscience [place] Office documented in this encounter Medications at [...] 11/29/167 Date of Service: 11/29/161224 Status: Signed Carrier Associate: Elma Day RN (Registered Nurse) [facility] with guards present and escorted by [facility] caren dunaway. Patient in shackles at [...] Date of Service: 11/28/16 1100 Status: Signed Carrier Associate: Douglas Logan DO (Physician) Neurosurgery Inpatient Progress [...] Muscle Strength: Right Left Upper Extremity: 5/5 Tableau Analyst +4/5 5/5 Tableau Analyst +4/5 Lower Extremity: 5/5 5/5 Wound:Clean, dry, [...] for comfort 3) PT/OT 4) Disposition to care home likely 24-48hrs It is a pleasure being involved in this patients care should any questions or concerns jeff e feel free to contact me at any time. Douglas Logan D.O Board Certified Neurosurgeon [facility] Neuroscience [place] Office onversion Transact ion, Provider Unknown - 11/28/2016 10:50 AM PDTFormatting of this note might be different fr om the original. Therapy Progress Note by Esthela Paulson PT at 11/28/16 1050 Author: Esthela Paulson PT Service: (none) Author Type: Physical Therapist Filed: 11/28/16 1050 Date of Service: 11/28/16 105 Status: Signed Carrier Associate: Esthela Paulson PT (Physical Therapist) 11/28/16 1004 PT Last Visit PT Received On 11/28/16 Requires PT Follow Up No PT Eval/Reassessment Date 11/28/16 Assistance Required Independent Home Environment Type of Home Other (Comment) (shelter) Prior Function Level of Reeves Independent with functional mobility;Independent with ADLs Falls in Past Year No Lives With Foster setting (shelter, will stay in inf[facility] he [facility]) RUE Assessment RUE Assessment WFL LUE Assessment LUE Assessment X (grossly 4 to 4+/5, but pt states this is better than SUCTION WORKER.) RLE Assessment RLE Assessment WFL LLE Assessment [...] Date of Service: 11/28/16 1050 Status: Signed Carrier Associate: Esthela Paulson PT (Physical Therapist) 11/28/16 1004 PT Last Visit PT Received On 11/28/16 Requires PT Follow Up No PT Eval/Reassessment Date 11/28/16 Assistance Required Independent Precautions Spinal Precautions Cervical;Cervical collar on when upright Other Comments Comments 41 y/o male admitted for C 5/6, 6/7 ACDF. Pt has Williams collar to wear when up. Pt demonstrates [...] no further skilled therapy needs. Low - 52949 Moderate - 19185 High - 56093 History no personal factors &/or comorbidities Examination 1-2 elements Clinical Presentation stable Clinical Decision Making Complexity: Low 61665 Moderate 27609 High 44691 onver antonio Escoto, Provider Unknown - 11/28/2016 9:20 AM PDT Case Management by PARDEEP Hurley at 11/28/16919 Author: PARDEEP Hurley Service: (none) Author Type: Legal Activity Adjudicator Filed: 11/28/16922 Date of Service: 11/28/16919 Status: Signed Carrier Associate: PARDEEP Hurley (Legal Activity Adjudicator) Pt is a resident of the [facility] and will return ther e upon discharge. CM faxed info to Nedra Sheridan who is the [facility] coordinator. CM will coordinate pt's return upon discharge. 11/28/16917 Discharge Planning Evaluation Admitting Diagnosis Cervical Spinal Stenosis Readmission No Type of Residence ([facility]) Bathrooms on 1st Floor 1-Full Caregiver after Discharge Yes Relationship to Patient [facility] staff Mental Status Oriented Anticipated Discharge Plan Post Acute Care Needs None at this time Resources Financial concerns No Transportation issues No Patient/Family concerns No Prescription Plan Yes Anticipated Disposition Facility Type Other (Comment) ([facility]) Medicare Important Message (NAY) Not applicable [...] / Alternative housing needed: None Anticipated DCP: [facility] onver antonio Transaction, Provider Unknown - 11/28/2016 5:04 AM PDT Nurse Progress Note by Chiqui Shaw RN at 11/28/16503 Author: Chiqui Shaw RN Service: (none) Author Type: Registered Nurse Filed: 11/28/16 0511 Date of Service: 11/28/16503 Status: Signed Carrier Associate: Chiqui Shaw RN (Registered Nurse) Pt s/p cervical radiculopathy 11/27, pain controled with [place] and Morphine. Tried weaning pt off oxygen, sating 90% room air, returned to 2 lpm NC 97%, VSS, hourly rounding otherwise uneventful. 11/28/2016 5:10 AM Chiqui Shaw RN elvin Colmenares [facility] - 11/27/2016 5:40 PM PDTFormatting of this note might be different from the or iginal. Progress Notes by Selvin Buenrostro RPH at 11/27/161739 Author: Selvin Buenrostro RPH Service: Pharmacy Author Type: Pharmacist Filed: 11/27/161739 Date of Service: 11/27/161739 Status: Signed Carrier Associate: Selvin Buenrostro RPH (Pharmacist) Renal Dosing Monitoring: [...] + + + | BB BAND | [id number] | | EXTERNAL | | | | performed at [facility] | | LAB | | | | [address];[place] | | | | | | [address] | | | | + + + [...] NEGATIVE Testing | | | performed at [facility];[address] [facility];[place] [address] | | + + + + +---------+ [...]
--- OUTSIDE RECORDS SUMMARY | ~2019-02-14 | XMS | Encounter Summary ---
Demographics + + + | Address | [address] [place] [address] | | | [place] [address] | + + + | Home Phone | | + + + | Preferred Language | Unknown | + + + | Marital Status | Unknown | + + + | Pentecostalism Affiliation | Unknown | + + + | Race | Unknown | + + + | Ethnic Group | Unknown | + + + Author + + + | Author | [facility] | | | and [place] | + + + | Organization | [facility] | | | [...] Team Providers + +------+ + | Care Painter Interior Finish Name | Role | Phone | + +------+ + PCP | Unavailable | + +------+ + Encounter Details +--------+ + + + + | Date | Type | Department | Care Team | Description | +--------+ + + + + | 11/27/ | Hospital | [facility] | Douglas Logan DO | Cervical spinal | | 2017 - | Encounter | CENTER SUR[facility] [address] | stenosis; Cervical | | | | [address] | [address] | radiculopathy at C7; | | 11/29/ | | [place] | [place] [address] | Cervical | | 2017 | | [address] | [phone] | radiculopathy at C6; | | | | [phone] | | DDD (degenerative | | | [...] 11/29/161051 Date of Service: 11/29/161049 Status: Signed Debt Collection Specialist: Douglas Logan DO (Physician) Neurosurgery Discharge Summary [facility] Neurosurgery Provider: Douglas Logan DO Date [...] ANTERIOR; Surgeon: Douglas Logan DO; Location: [facility] MA[facility] OR; Service: Neurosurgery; Laterality: N/A; [...] Muscle Strength: Right Left Upper Extremity: 5/5 Structural Welder +4/5 5/5 Structural Welder +4/5 Lower Extremity: 5/5 5/5 Wound:Clean, dry, [...] BLOODU, KETONES, BILIRUBINUR, GLUCOSEU PLAN [facility]. Patient should continue cervical collar at all [...] least a period of 2-3 months. Disposition: USP Condition: Stable Code Status: Full Code No discharge procedures on file. Possible Follow Up Numbers: Per Pt None [place] Medication List START taking these medications [...] Logan D.O Board Certified Neurosurgeon [facility] Neuroscience [place] [facility] documented in this encounter Medications at [...] 11/29/167 Date of Service: 11/29/161224 Status: Signed Debt Collection Specialist: Elma Day RN (Registered Nurse) Patient [facility] to [facility]al facility with guards present and escorted by [facility] caren dunaway. Patient in shackles at time [...] Date of Service: 11/28/16 1100 Status: Signed Debt Collection Specialist: Douglas Logan DO (Physician) Neurosurgery Inpatient Progress [...] Muscle Strength: Right Left Upper Extremity: 5/5 Structural Welder +4/5 5/5 Structural Welder +4/5 Lower Extremity: 5/5 5/5 Wound:Clean, dry, [...] for comfort 3) PT/OT 4) Disposition to longterm likely 24-48hrs It is a pleasure being involved in this patients care should any questions or concerns jeff e feel free to contact me at any time. Douglas Logan D.O Board Certified Neurosurgeon [facility] [place] [facility] onversion Transact ion, Provider Unknown - 11/28/2016 10:50 AM PDTFormatting of this note might be different fr om the original. Therapy Progress Note by Esthela Paulson PT at 11/28/16 1050 Author: Esthela Paulson PT Service: (none) Author Type: Physical Therapist Filed: 11/28/16 1050 Date of Service: 11/28/16 105 Status: Signed Debt Collection Specialist: Esthela Paulson PT (Physical Therapist) 11/28/16 1004 PT Last Visit PT Received On 11/28/16 Requires PT Follow Up No PT Eval/Reassessment Date 11/28/16 Assistance Required Independent Home Environment Type of Home Other (Comment) (snf) Prior Function Level of [place] Independent with functional mobility;Independent with ADLs [place] in Past Year No Lives With Foster setting (snf, will stay [facility]) RUE Assessment RUE Assessment WFL LUE Assessment LUE Assessment X (grossly 4 to 4+/5, but pt states this is better than JAVASCRIPT PROGRAMMER.) RLE Assessment RLE Assessment WFL LLE Assessment [...] Date of Service: 11/28/16 1050 Status: Signed Debt Collection Specialist: Esthela Paulson PT (Physical Therapist) 11/28/16 1004 PT Last Visit PT Received On 11/28/16 Requires PT Follow Up No PT Eval/Reassessment Date 11/28/16 Assistance Required Independent Precautions Spinal Precautions Cervical;Cervical collar on when upright Other Comments Comments 41 y/o male admitted for C 5/6, 6/7 ACDF. Pt has [place] collar to wear when up. Pt demonstrates [...] no further skilled therapy needs. Low - 86591 Moderate - 12079 High - 26998 History no personal factors &/or comorbidities Examination 1-2 elements Clinical Presentation stable Clinical Decision Making Complexity: Low 52010 Moderate 62656 High 99706 onver antonio Escoto, Provider Unknown - 11/28/2016 9:20 AM PDT Case Management by PARDEEP Hurley at 11/28/16919 Author: PARDEEP Hurley Service: (none) Author Type: Sharepoint Net Developer Filed: 11/28/16922 Date of Service: 11/28/16919 Status: Signed Debt Collection Specialist: PARDEEP Hurley (Sharepoint Net Developer) Pt is a resident of the [facility] and will return ther e upon discharge. CM faxed info to Nedra Sheridan who is the [place] [employer] coordinator. CM will coordinate pt's return upon discharge. 11/28/16917 Discharge Planning Evaluation Admitting Diagnosis Cervical Spinal Stenosis Readmission No Type of Residence ([facility]) Bathrooms on 1st Floor 1-Full Caregiver after Discharge Yes Relationship to Patient [facility] staff Mental Status Oriented Anticipated Discharge Plan Post Acute Care Needs None at this time Resources Financial concerns No Transportation issues No Patient/Family concerns No Prescription Plan Yes Anticipated Disposition Facility Type Other (Comment) ([facility]) Medicare Important Message (NAY) Not applicable [...] / Alternative housing needed: None Anticipated DCP: [facility] onver antonio Transaction, Provider Unknown - 11/28/2016 5:04 AM PDT Nurse Progress Note by Chiqui Shaw RN at 11/28/16503 Author: Chiqui Shaw RN Service: (none) Author Type: Registered Nurse Filed: 11/28/16 0511 Date of Service: 11/28/16503 Status: Signed Debt Collection Specialist: Chiqui Shaw RN (Registered Nurse) Pt s/p cervical radiculopathy 11/27, pain controled with [place] and Morphine. Tried weaning pt off oxygen, sating 90% room air, returned to 2 lpm NC 97%, VSS, hourly rounding otherwise uneventful. 11/28/2016 5:10 AM Chiqui Shaw RN elvin Colmenares [facility] - 11/27/2016 5:40 PM PDTFormatting of this note might be different from the or iginal. Progress Notes by Selvin Buenrostro RPH at 11/27/161739 Author: Selvin Buenrostro RPH Service: Pharmacy Author Type: Pharmacist Filed: 11/27/161739 Date of Service: 11/27/161739 Status: Signed Debt Collection Specialist: Selvin Buenrostro RPH (Pharmacist) Renal Dosing Monitoring: [...] + + + | BB BAND | [id number] | | EXTERNAL | | | | performed at [facility];[address] | | LAB | | | | [address];[place] | | | | | | [address] | | | | + + + [...] performed at [facility];[address] [facility] [place] [address] | | + + + + +---------+ [...]
--- OUTSIDE RECORDS SUMMARY | ~2019-02-14 | XMS | Encounter Summary ---
Demographics + + + | Address | [address] [place] [address] | | | [place] [address] | + + + | Home Phone | | + + + | Preferred Language | Unknown | + + + | Marital Status | Unknown | + + + | Latter Day Affiliation | Unknown | + + + [...] Team Providers + +------+ + | Care Hammer Runner Name | Role | Phone | + [...] Provider Unknown | | | | | [place] | | | | | | [phone] | (Fax) | | | | | [phone] | | | +--------+ + + + [...]
[2019-02-15] MEDS ORDERED: GABAPENTIN600 MG PO (00:01)
[2019-02-15] MEDS ORDERED: OMEPRAZOLE20 M1 PO (00:18)
[2019-02-15] MEDS ORDERED: CULTURELLE1 EACH PO (00:18)
[2019-02-15] MEDS ORDERED: PAXIL10 MG PO (00:19)
[2019-02-15] MEDS ORDERED: BENADRYL25 MG PO (00:20)
--- NOTE | 2019-02-15 02:55 | NUR ---
HANDOFF REPORT RECEIVED VIA TELEPHONE FROM ED RN BILL. pt TO OR AT THIS TIME.
--- NOTE | 2019-02-15 05:18 | NUR ---
02/15/19 0518 Shaina Panchal 0510 PATIENT ARRIVES TO PACU EYES OPEN ON/OFF, BUT VERY DROWSY. ORAL AIRWAY IN PLACE. MASK AT 6 LITERS. RESP EVEN AND UNLABORED. 0511 PATIENT FOLLOWS COMMANDS TO OPEN MOUTH. ORAL AIRWAY REMOVED. PATIENT REPOSITIONS SELF TO LEFT SIDE. MOVING ALL EXTREMITIES. 0515 EOCI OFFICER X1 AT BEDSIDE. BELLY RESTRAINTS APPLIED WITH AWARENESS OF TO ABD INCISION PER EOCI OFFICER. PATIENT C/O FEELING LIKE HE CAN'T BREATHE, BUT RESP EVEN AND UNLABORED, MASK CONTINUED AT 6 LITERS. OXYGEN SATS 100%.
--- NOTE | 2019-02-15 06:23 | NUR ---
pt ARRIVES TO MS ON RA. VSS. REPORT RECEIVED FROM RAFIA PATEL. DROWSY, RATES PAIN 8/10 IN ABDOMEN, BOWEL TONES ACTIVE, TENDER W PALPATION. DRESSING AT MIDLINE WITH SANGUINOUS SHADOWING. PRN IV OFIRMEV ADMINISTERED WNL. SIPS OF WATER PROVIDED. pt DENIES NAUSEA. INSTRUCTED TO NOT OVER DO THE CLEAR LIQUIDS AT THIS TIME. SCDS ON. GUARDS PRESENT IN ROOM.
--- NOTE | 2019-02-15 07:10 | NUR ---
POST OP VSS. pt RATES PAIN 8.5-9/10 IN ABDOMEN. STATES "BURNING, STABBING PAIN". PRN PAIN MEDICATION ADMINISTERED. pt DROWSY, SATURATIONS DROP TO 88% ON RA, CPOX PLACED ON pt. 1L OXYGEN BY NC. IVF INFUSING WNL. GUARDS IN ROOM.
--- NOTE | 2019-02-15 07:36 | NUR ---
PT RESTING SUPINE IN BED EYES CLOSED AND RESPIRATIONS EVEN AND UNLABORED ON 1LPNC, CPOX IN PLACE AND PT SATTING IN HIGH 90'S. CALL LIGHT AND H2O IN REACH. PT APPEARS TO BE SLEEPING COMFORTABLY. 2 EOCI OFFICERS AT BEDSIDE.
--- NOTE | 2019-02-15 07:40 | NUR ---
REFILLED PATIENTS WATER, PATIENT WAS INTRUCTED TO DRINK SLOWLY, PATIENTS BOARD WAS UPDATED
--- NOTE | 2019-02-15 08:23 | NUR ---
Medications reconciled using facility [facility]
--- NOTE | 2019-02-15 08:37 | NUR ---
PT RESTING IN SEMIFOWLERS POSITION IN BED ALERT AND ORIENTED. CALL LIGHT AND H2O IN REACH. PT ASSESSMENT COMPLETED. PT REPORTS INCREASED SHARP STABBING PAIN TO ABDOMEN. PRN IV MORPHINE ADMINISTERED PER PT REQUEST. NO FURHTER NEEDS OR CONCERNS VOICED.
--- NOTE | 2019-02-15 09:48 | NUR ---
PT REPORTS INCREASED PAIN TO ABDOMEN. PT REPORTS 9/10 SHARP STABBING PAIN TO SURGICAL SITE. PER PT REQEUST PRN IV OPIOD ADMINISTERED -SEE EMAR. CALL LIGHT AND H2O IN REACH. CPOX REMAINS IN PLACE AND PT SATTING 99% ON 1LPNC SO WAS TITRATED TO ROOM AIR AND CONTINUES TO SAT AT 99%. CALL LIGHT AND H2O IN REACH AND 2 OFFICERS REMAIN AT BEDSIDE MONITORING PATIENT.
--- NOTE | 2019-02-15 11:53 | NUR ---
PT REPORTS PAIN OF 9/10 PRN IV ACETAMINOPHEN AND OPIOD AMDINISTERED PER PT REQUEST. ASSESSMENT COMPLETED. CALL LIGHT AND H2O IN REACH. NO FURTHER NEEDS OR CONCERNS VOICED.
--- NOTE | 2019-02-15 12:31 | HP ---
[facility] [address] [place], [place] [address] Signed ADMISSION DATE: 02/15/2019 TIME: 01:40 a.m. PROBLEM: Possible internal hernia or volvulus. HISTORY OF PRESENT ILLNESS: This 43-year-old dark-skinned man is a prisoner at [facility] and had the sudden onset of left upper abdominal and epigastric pain at approximately 6 p.m. this evening. An IV was [facility] at the [facility] and he was ultimately transferred to the [place] [facility] for further evaluation of his persistent and progressive abdominal pain. His evaluation included a CT scan of the abdomen, which confirmed prior history of subtotal colectomy with ileocolostomy and findings suggestive of internal hernia of small bowel or possible volvulus. He has a complex history. Over a year ago, he underwent revisional cervical spinal surgery at [facility] in the [facility]. 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 He additionally from what I can tell, developed a C difficile infection, requiring subtotal colectomy with a diverting ileostomy. He recovered from all that and subsequently underwent takedown of the ileostomy all of this in the past year. Approximately 10 days ago, he underwent a CT myelogram and had what sounds like spinal fluid leak with resultant observation overnight in the hospital and recovered uneventfully. His other medical history includes only the prior cervical spine history. He denies any prior history of hepatitis and denies any other ongoing medical problems. His evaluation at the ER showed a CT scan confirming a "cluster of abnormally dilated small bowel loops seen in the left upper quadrant measuring up to 4 cm in size." There is a swirl noted on the mesentery with this cluster of dilated small bowel loops and a transition both proximally and distally to this cluster of small bowel loops suggesting closed-loop obstruction from possible internal hernia with volvulus as a secondary consideration. Mucosal enhancement is noted without signs suggesting ischemia and no pneumatosis or free air is noted according to the report. My review of the images confirms those findings as well. Stomach has some possible fluid retained within it. The spleen appears normal as does the liver and both kidneys. Electronically Signed By: SHANE BECKMAN MD 02/15/19 1231 PATIENT NAME: SHANE HORTON HISTORY AND PHYSICAL DATE OF : 71 REPORT #: [id number] PHYSICIAN: SHANE BECKMAN MD PCP: RADHA SORIANO MD REPORT IS CONFIDENTIAL AND NOT TO BE RELEASED WITHOUT AUTHORIZATION [facility] [address], [place] [address] Signed Lab studies are remarkable for a white count of 8.9, hematocrit 24.4, and platelets 458,000. Chem profile overall was normal. Lipase was 9. Lactic acid level was not drawn so far as I can see. Urinalysis was essentially normal. I have no other particular information in the local medical record in other than a August 2016 brain MRI and cervical spine MRI which shows at C2-3, a mild broad-based disk bulging without neural compromise, disk protrusion at C3-4 without neural compromise, a C4-5 disk bulge had significant left neuroforaminal narrowing, and a C5-6 disk bulge causing similar effect. At T1-T2, there is a left paracentral disk protrusion causing severe compromise of the emerging left T2 root. REVIEW OF SYSTEMS: His pain is dominantly in the left upper quadrant. He does not have lower abdominal pain. PHYSICAL EXAMINATION: GENERAL: Dark-skinned individual, who looks to be in moderate discomfort. HEENT: Mucous membranes were reasonably moist. Trachea is midline. CHEST: Shows normal respiratory excursion without tachypnea. ABDOMEN: Nondistended. He has tenderness in the left upper quadrant. A healed midline scar with some keloid formation is noted. There is a right lower quadrant transverse incision consistent with prior ileostomy site. He has multiple tattoos over his body including abdomen. His right upper extremity has an atrophic appearance and poorly coordinated ability with his hand and arm. Right lower extremity and left lower extremity appears symmetric and reasonably functional. ASSESSMENT: The patient has a sudden onset of left upper quadrant pain with CT scan findings suggestive of internal hernia or possible limited volvulus. The bulk of the small bowel does not appear to have volvulus. There is some fluid within the stomach, for which a nasogastric tube decompression prior to general anesthesia would be indicated. He has a somewhat ambiguous history of reaction of anesthesia, which may or may not be related to his actual neurosurgical intervention (neck surgery). This is quite uncertain. He certainly did have some compromise related to operation I suspect from the operative intervention itself rather than anesthetic. Given the urgency of his situation and the possibility of significant bowel compromise, urgent operation has been recommended. The risks of bleeding, infection, need for bowel resection and so forth all reviewed with him. We will be mindful of the remaining small amount of colon he has to avoid C difficile Electronically Signed By: SHANE BECKMAN MD 02/15/19 1231 PATIENT NAME: SHANE HORTON HISTORY AND PHYSICAL DATE OF : 71 REPORT #: [id number] PHYSICIAN: SHANE BECKMAN MD PCP: RADHA SORIANO MD REPORT IS CONFIDENTIAL AND NOT TO BE RELEASED WITHOUT AUTHORIZATION [facility] [address] [place] [address] Signed reinfection. Preoperative antibiotics will have a limited course to include Ancef and Flagyl and postoperatively depending on need for additional antibiotics, a vancomycin related regimen. The source of his anemia is uncertain; to my knowledge, he has had no bleeding and shows no sign of other myelogenous deficiencies (platelets, white cells, etc). Shane Beckman MD /MARIELLEL /[id number] cc: Diogenes Hopkins MD Copies: DIOGENES HOPKINS MD ~ Electronically Signed By: SHANE BECKMAN MD 02/15/19 1231 PATIENT NAME: SHANE HORTON HISTORY AND PHYSICAL DATE OF : 71 REPORT #: [id number] PHYSICIAN: SHANE BECKMAN MD PCP: RADHA SORIANO MD REPORT IS CONFIDENTIAL AND NOT TO BE RELEASED WITHOUT AUTHORIZATION
--- NOTE | 2019-02-15 12:31 | OR ---
[facility] [address], [place] [address] Signed DATE OF OPERATION: 02/15/2019 SURGEON: Shane Beckman MD PREOPERATIVE DIAGNOSES: 1. Acute abdomen, left upper quadrant pain, small bowel volvulus or internal hernia. 2. History of subtotal colectomy with ileocolic anastomosis. POSTOPERATIVE DIAGNOSES: 1. Internal hernia with torsion of small bowel and associated adhesions. 2. Large mesenteric defect of small bowel and left colic mesentery (non-closure) contributing to internal hernia. 3. Sizable keloid of incision. PROCEDURE PERFORMED: 1. Exploration of the abdomen with lysis of inflammatory adhesion detorsion of portion of small bowel. 2. Resection of ileocolic anastomosis with end-to-end ileocolic anastomosis and repair of a sizable mesenteric defect. 3. Excision of abdominal incisional keloid. ANESTHESIA: General endotracheal; Stella Rocha CRNA. INDICATION: This 43-year-old man is a prisoner at [facility]. In the past year, he underwent cervical spine surgery for at least the 2nd time and suffered some neurologic deficits including right arm dysfunction and atrophy. In the course of his recovery, he had C. difficile colitis with toxicity requiring subtotal colectomy and diverting ileostomy. He subsequently underwent ileocolic anastomosis to what sounds like the remnant of the sigmoid or left colon. He had in general been getting along well with no recurrent C. difficile problems. Last night at approximately 6 p.m., he had the sudden onset of severe left upper abdominal pain, presented to the emergency room. He had marked tenderness, pain, poorly responsive to opiate medication and underwent CT scan under the direction of Dr. Aguirre, emergency room physician, which showed a left upper quadrant closed-loop obstruction consistent with internal hernia or segmental volvulus. There is no sign of free air. He is notably anemic for reasons that are uncertain; hematocrit 24, white count is normal, electrolytes normal. He has been fluid resuscitated and has needs to undergo Electronically Signed By: SHANE BECKMAN MD 02/15/19 1231 PATIENT NAME: SHANE HORTON OPERATIVE REPORT DATE OF : 71 REPORT #: [id number] PHYSICIAN: SHANE BECKMAN MD PCP: RADHA SORIANO MD REPORT IS CONFIDENTIAL AND NOT TO BE RELEASED WITHOUT AUTHORIZATION [facility] [address], [place] [address] Signed prompt laparotomy and remedy of the problem. He understands the risks of bleeding, infection, need for bowel resection, need for other indicated procedures. FINDINGS: All of the bowel was viable. There is no evidence of necrosis or ischemia. Indeed, he did have internal herniation with torsion of portion of small bowel. It was initially thought related primarily to a specific adhesion, but ultimately it was found that he had a large mesenteric defect. The mesenteric defect was related to his subtotal colectomy and there was no apparent closure of the mesenteric defect. Once the bowel was de-torsed, it was clear that closure of the mesenteric defect could not be undertaken without complete torsion of the ileocolic anastomosis. On that basis, segmental resection was required and this was accomplished in an end-to-end configuration allowing appropriate alignment of the mesenteric leaves of the colon and the ileal and small-bowel segments. Reapproximation allows for no mesenteric defect to allow for internal herniation going forward. Additionally, the dense keloid scar of the midline incision was excised. DESCRIPTION OF PROCEDURE: The patient was brought to the operating room, given a general endotracheal anesthetic. Preoperative antibiotic Ancef and Flagyl were given intravenously. Pepcid was given and sequential compression device stockings were used. After satisfactory general endotracheal anesthesia, the abdomen was prepared with a chlorhexidine solution. A Brown catheter had been placed and a nasogastric tube was placed in the emergency room. Incision was maintained in the previous midline upper incision to the left side of the dense keloid. Dissection was carried through the subcutaneous tissue, which was surprisingly free-flowing in vascularity. Hemostasis was assured of the subcutaneous space. Midline fascia was incised and the abdomen was carefully entered. Opening of the abdomen showed no evidence of ischemic bowel and no significant dense adhesions anywhere initially. Small bowel was carefully examined particularly in the left upper abdomen and found to have a torsed segment of small bowel densely coiling the mesenteric remnant there. Further examination showed a vascular adhesion, which was identified and doubly clipped and then divided. Small bowel was then unfurled and examined. In examining the small bowel, there appeared to be a very large defect of the mesentery where a prior ileal resection and colonic resection had been undertaken. It appeared there had been no attempt to close it in the past. Small bowel was completely eviscerated and run from the distal duodenum downstream laying out the mesenteric pedicle well. He has a thin body habitus, but it was not excessively fat depleted. At the ileocolic anastomosis, which appeared to be a side-to-end staple type anastomosis. It was clear that the orientation of the proximal small bowel and the colonic segment were in such a way that the mesenteric defect could not be closed. Various maneuvers Electronically Signed By: SHANE BECKMAN MD 02/15/19 1231 PATIENT NAME: SHANE HORTON OPERATIVE REPORT DATE OF : 71 REPORT #: [id number] PHYSICIAN: SHANE BECKMAN MD PCP: RADHA SORIANO MD REPORT IS CONFIDENTIAL AND NOT TO BE RELEASED WITHOUT AUTHORIZATION [facility] [address], [place] [address] Signed were undertaken to ascertain whether perhaps there was torsion causing this problem, but it was clear that the mesenteric defect, though large was intentional and clearly contributing to the previous problem. The only rational solution was resection of the ileocolic anastomosis to allow for alignment of the mesenteric defects and close that space for future internal herniation. The small bowel segment corresponding to the anastomosis was isolated with hemostats as regards to mesenteric flow and vascular pedicles ligated with 0 silk ties. A ALEXEY stapling device was used to transect the ileal portion of the anastomosis. Similarly, the mesenteric segment for the colonic anastomosis, which appeared to be probably mid descending colon was similarly secured. That segment was transected with ALEXEY stapling device. This allowed for alignment of the mesentery of the small bowel and the left colon. Since the small bowel was somewhat dilated, it could easily be anastomosed in an end-to-end configuration to the colonic segment. A portion of the stapled segment of colon was oversewn with interrupted 3-0 silk suture allowing for good fit of the ileum to the colon. An end-to-end ileocolic anastomosis was then undertaken, in a two layer technique of interrupted 3-0 silk suture in the serosal layer and interrupted 3-0 Vicryl in the mucosal layer. Excellent viability of both proximal and distal ends was noted. There was no significant colonic or small bowel contents in the lumen of the bowel. This allowed for alignment of the small bowel mesentery and that of the remaining left colonic mesentery. That defect now was able to be closed without impinging on the ileocolic anastomosis and was done with interrupted 3-0 silk suture. Photographs were taken throughout. Small bowel was once again run from the ligament of Treitz to the ileocolic anastomosis and found to have good viability, with no evidence of torsion and no mesenteric defect to allow for recurrent internal hernia. Irrigation was undertaken fully with bowel returned to the abdominal cavity. There were no other findings of concern; specifically, the liver appeared normal. Omentum was placed over the abdominal contents. The midline fascia was reapproximated with running bidirectional #1 PDS suture. The thick keloid along the incision was then excised with electrocautery. The skin was then closed with running subcuticular 3-0 Vicryl. Steri-Strips were applied as was a silver sponge dressing. The patient was ultimately extubated and transferred to recovery room in good condition having suffered no known complication. Blood loss was less than 25 mL. Shane Beckman MD Electronically Signed By: SHANE BECKMAN MD 02/15/19 1231 PATIENT NAME: SHANE HORTON OPERATIVE REPORT DATE OF : 71 REPORT #: [id number] PHYSICIAN: SHANE BECKMAN MD PCP: RADHA SORIANO MD REPORT IS CONFIDENTIAL AND NOT TO BE RELEASED WITHOUT AUTHORIZATION [address] [place] [address] Signed /MARIELLEL /[id number] cc: MD Dr. Timothy Helms [facility] Copies: DEL HOPKINS MD ~ Electronically Signed By: SHANE BECKMAN MD 02/15/19 1231 PATIENT NAME: SHANE HORTON OPERATIVE REPORT DATE OF : 71 REPORT #: [id number] PHYSICIAN: SHANE BECKMAN MD PCP: RADHA SORIANO MD REPORT IS CONFIDENTIAL AND NOT TO BE RELEASED WITHOUT AUTHORIZATION
--- NOTE | 2019-02-15 14:59 | NUR ---
PT RESTING IN SEMIFOWLERS POSITIOON IN BED. PT ALERT AND ORIENTED. CALL LIGHT AND H2O IN REACH. PT REPORTS 9/10 PAIN TO ABDOMEN SHARP AND STABBING IN NATURE. PT REQUESTED AND RECEIVED PRN IV ANALGESIC.
--- NOTE | 2019-02-15 16:47 | NUR ---
Spoke with Matthias, correctional officers present. 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 States he has worked with PT and OT and is awaiting a hand brace for his R hand. Request to have second IV site in L upper arm removed, as this is the arm he uses. Denies use or need for DME. Will return [facility] on dc. Notified Rn pt would like second IV site removed.
--- NOTE | 2019-02-15 17:19 | NUR ---
PT REPORTS NAUSEA WITH SOME PERSISTING ABDOMINAL PAIN. PT REQUESTED AND RECEIVED PRN IV TORADOL. PT EDUCATED ON IMPORTANCE OF TAKING LESS OPIODS THEY HAVE THE SIDE EFFECT OF SLOWING DOWN PEARL AND MAY CAUSE NAUSEA/VOMITING. PT AGREES. PRN IV ZOFRAN ADMINISTERED WELL FOR PT REPORT OF NAUSEA. ICE PACKS ALSO APPLIED TO ABDOMEN. 10CC STERILE H2O REMOVED FROM VO CATH AND CATH REMOVED WITHOUGH DIFFICULTY.
--- NOTE | 2019-02-15 19:03 | NUR ---
IN ROOM FOR REPORT, PT IS AWAKE IN BED. HE IS ASKING ABOUT HIS HOME MEDS. WILL CHECK WITH DR BECKMAN. PT DENIES FURTHER NEEDS AT THIS TIME. CALL LIGHT IS CLOSE.
--- NOTE | 2019-02-15 19:50 | NUR ---
SPOKE WITH DR BECKMAN. HE IS OKAY WITH THE PT RESUMING HIS HOME MEDICATIONS. WILL PUT ORDERS IN.
--- NOTE | 2019-02-15 21:05 | NUR ---
IN ROOM TO ASSESS PT AND ADMINSITER MEDICATIONS. PT REPORTS PAIN AT 7/10 PUT STATES THIS IS TOLERABLE. HIS DRESSING HAS SOME SHADOWING ON THE INFERIOR END WELL A SMALL SPOT ON THE SUPERIOR END. BOWEL TONES ARE ACTIVE. PT DENIES FURTHER NEEDS AT THIS TIME. CALL LIGHT IS CLOSE.
--- NOTE | 2019-02-15 21:29 | NUR ---
DIRK BULLOCK FROM [employer], RN CALLED FOR REPORT ON PT. GIVEN. WONDERING WHEN PT WILL BE DISCHARGED BACK. NO TIME SET AT THIS TIME.
--- NOTE | 2019-02-15 21:32 | NUR ---
IN ROOM TO ASSESS PT AND ADMINISTER MEDICATIONS. HE REPORTS SPUTUM PRODUCTION HAS INCREASED BUT DENIES SOB AND PAIN. HE IS VOIDING FINE AND APPETITE IS GOOD. PT DENIES FURTHER NEEDS AT THIS TIME. CALL LIGHT IS CLOSE.
--- NOTE | 2019-02-15 22:30 | NUR ---
MAY ROD MACHINE OPERATOR TOOK PT'S VS AND I&O'S. PT DENIES FURTHER NEEDS AND CALL LIGHT IS CLOSE.
--- NOTE | 2019-02-15 23:15 | NUR ---
VITALS AND I&OS DONE AND CHARTED. BEDSIDE TABLE AND CALL LIGHT IN REACH. PT NEEDS NOTHING MORE AT THIS TIME.
--- NOTE | 2019-02-16 00:19 | NUR ---
PT WAS UP TO THE RESTROOM WITH HELP OF 2 CORRECTIONAL OFFICERS. HE DENIES NEEDS AT THIS TIME. CALL LIGHT IS CLOSE.
--- NOTE | 2019-02-16 02:00 | NUR ---
IN ROOM TO CHECK VS AND I&0 WITH MAY FORENSIC PSYCHOLOGIST. PT REPORTS PAIN AT 7/10. ADMINISTERED TORADOL. PT IS PASSING GAS BUT NO BM YET. DRESSING IS INTACT WITH SAME SHADOWING NOTED. IV IS INFUSING FINE. PT DENIES FURTHER NEEDS AT THIS TIME. CALL LIGHT IS WITHIN REACH.
--- NOTE | 2019-02-16 03:57 | NUR ---
PT IS RESTING WITH EYES CLOSED, RR IS EVEN AND NONLABORED. CALL LIGHT IS CLOSE. AND IV IS INFUSING FINE.
--- NOTE | 2019-02-16 06:11 | NUR ---
PT IS RESTING WITH EYES CLOSED, RR IS EVEN AND NONLABORED. CALL LIGHT IS CLOSE AND IV IS INFUSING FINE.
--- NOTE | 2019-02-16 06:34 | NUR ---
PT CALLED WANTING HIS MORNING MEDS. ADVISED HIM THE SCHEDULE MEDICATIONS ARE DUE AT 0900. BUT HE CAN HAVE PRN MEDS IF NEEDED. HE REQUESTED TYLENOL FOR 8/10 PAIN. HE DENIES FURTHER NEEDS AT THIS TIME. CALL LIGHT IS CLOSE.
--- NOTE | 2019-02-16 06:35 | NUR ---
PT'S PAIN WAS WELL CONTROLLED WITH TORADOL AND TYLENOL THROUGH THE NIGHT. HE DID NOT HAVE ANY NAUSEA AFTER TAKING HIS PILLS LAST NIGHT. HE IS TOLERATING CLEAR LIQUIDS AND BOWEL TONES ARE ACTIVE. HE IS PASSING GAS. HE DID WELL ON RA ALL NIGHT WITH CPOX IN PLACE. HE AMBULATES SBA.
--- NOTE | 2019-02-16 08:07 | NUR ---
REPORT RECEIVED FROM MICHAEL DELEON RN. PT IN BED WITH EYES CLSOED. RESPIRATIONS EQUAL AND NONLABORED. 2 GAURDS AT BEDSIDE. CALL LIGHT IN REACH. LR AT 85 INFUSING.
--- NOTE | 2019-02-16 09:43 | NUR ---
DR BECKMAN CALLED TO VERIFY MEDICATION ORDERS. NEW ORDERS RECIEVED.
--- NOTE | 2019-02-16 09:54 | NUR ---
DRESSING DC'D PER ORDER. STERI STRIPS IN PLACE. IV FLUYIDS DC'D. PT SALINE LOCKED. 2 GAURDS AT BEDSIDE. CALL LIGHT IN REACH.
--- NOTE | 2019-02-16 10:15 | NUR ---
Spoke with Dr. Almazan. [facility] so.
--- NOTE | 2019-02-16 11:18 | NUR ---
TOLERATED REGULAR DIET WITH NO PAIN/NAUSEA. UP TO SHOWER WITH 2 GAURDS IN ROOM. DENIES NEED. CALL LIGHT IN REACH.
--- NOTE | 2019-02-16 11:55 | NUR ---
PT REPORTING 9/10 PAIN AFTER SHOWR. 1 TAB NORCO ADMINSITERED.
--- NOTE | 2019-02-16 12:49 | NUR ---
LUNCH PROVIDED. PT TORREY NEEDS. CALL THAIS IN REACH, 2 GAURDS AT BEDSIDE. WITH 4 POINT SHACKLES.
--- NOTE | 2019-02-16 14:41 | NUR ---
PT HAD GOOD DAY. PAIN WELL CONTROLLED. NO NAUSEA. PT WITH FLATUS AND BM THIS SHIFT. AMBUALTING HALLS. SHOWERED TODAY. DC'D ABDOMINAL DRESSING STERI STRIPS IN PLACE. INCISION WELL APPROXIMATED. BOWEL TONES ACTIVE. SALINE LOCKED.
--- NOTE | 2019-02-16 16:38 | NUR ---
PT RESTING IN BED. PT RATING PAIN 9/10 STABBING PAIN TO ABD, PT APPEARS RELAXED AND COMFORTABLE. PT ON ROOM AIR, LUNG SOUNDS CLEAR, DENIES SOB. BOWEL TONES ACTIVE, DENIES NAUSEA, BM X2 TODAY, TOLERATING REGULAR DIET. PT WITH RIGHT ARM NUMBNESS AND GROSS MOVEMENT FROM PREVIOUS SURGERY. PT ENCOURAGED TO WALK IN CHERRY, COMPLETING NOW. PT GIVEN 2 TABS NORCO. PT DENIES OTHER NEEDS AT THIS TIME.
--- NOTE | 2019-02-16 20:12 | NUR ---
PATIENT IN BED WATCHING TV, PAIN DISCRIBED 8/10 ABD PAIN. 2 [employer] OFFICERS PRESENT AND PATIENT IN STANDARD [employer] RESTRAINTS. CALL LIGHT IN REACH.
--- NOTE | 2019-02-16 23:00 | NUR ---
PATIENT RESTING IN BED WATCHING TV WITH [employer] OFFICERS. NO NEEDS AT THIS TIME.
--- NOTE | 2019-02-17 01:10 | NUR ---
PATIENT IS RESTING AND SAYS HIS PAIN IS OK, 2 [employer] OFFICERS AT BED SIDE, PATIENT DRANK A GLASS OF GRAPE JUICE AND HAS HAD NO PAIN MEDS SINCE ABOUT 2100. CALL LIGHT IN REACH.
--- NOTE | 2019-02-17 03:17 | NUR ---
PATIENT STILL DOING OK PAIN MCCALLUM, 2 [employer] OFFICERS AT BEDSIDE. PATIENT RESTING ON AND OFF WITH EVEN AND REGLAR RESPIRATIONS. CALL LIGHT IN REACH.
--- NOTE | 2019-02-17 07:27 | NUR ---
REPORT RECEIVED FROM SITE INSPECTOR RN. PT IN BED WITH LOLA AT BEDSIDE. CALL LIGHT IN REACH.
--- NOTE | 2019-02-17 07:39 | NUR ---
REPORTING 9/10 PAIN. 2 TAB[facility] AD[facility].
--- NOTE | 2019-02-17 08:13 | NUR ---
BREAKFAST PROVIDED. PT SAT UP IN BED. CALL LIGHT IN REACH
--- NOTE | 2019-02-17 10:02 | NUR ---
ASSESSMENT COMPLETED. BOWEL TONES ACTIVE. PASSING FLATSU AND BOWEL MOVEMNENTS. PAIN 7/10, MIDLINE WITH STERISTRIPS. C/D/I, WELL APPROXIMATED. PT UP TO SHOWER. CALL THAIS IN REACH, 2 GAURDS AT BEDSIDE.
[2019-02-17] MEDS ORDERED: IBUPROFEN600 MG PO (11:12)
[2019-02-17] MEDS ORDERED: HYDROCODON-ACE1 EA10 PO (11:13)
[2019-02-17] MEDS ORDERED: TYLENOL EXTRA500 MG PO (11:14)
--- NOTE | 2019-02-17 11:15 | NUR ---
PT OUT AMBULATING HALLS WITH LOLA. BACK TO ROOM. CALL LIGHT IN REACH.
--- NOTE | 2019-02-17 13:00 | NUR ---
REPORT CALLED TO RHODA AT [facility]. ALL QUESTIONS ANSWERED. DISCHARGE INSTRUCTIONS GIVEN TO INMATE WITH PACKET GIVEN TO LOLA. VITALS TAKEN AND STABLE. NO PAIN.
--- NOTE | 2019-02-17 16:35 | PATH ---
[facility] [address], [place] [address] Signed SPECIMEN(S): A ILEOCOLIC ANASTOMOSIS SPECIMEN(S): B ABDOMEN SPECIMEN SOURCE: A. ILEOCOLIC ANASTOMOSIS B. ABDOMEN CLINICAL HISTORY: A) Ileocolic anastomosis. B) Abdominal incision keloid. FINAL PATHOLOGIC DIAGNOSIS: A. Ileocolic anastomosis, excision: - Ileocolic anastomotic tissue with ulcer, granulation tissue formation, and associated reactive/reparative change. - Negative for dysplasia or malignancy. B. Skin, abdomen, "keloid," excision: - Hypertrophic scar, present at lateral specimen edge. NAL:smn:C2NR MICROSCOPIC EXAMINATION: Histologic sections of all submitted blocks are examined by light microscopy. These findings, together with the gross examination, support the pathologic diagnosis. GROSS DESCRIPTION: Two specimens are received in two containers, labeled "JW." A. The specimen, labeled "JW, ileocolic anastomosis," is received in formalin and consists of a pouch-like piece of bowel tissue that measures 6.5 x 6.5 x 3.0 cm. The mucosa is a pink-fulton and folded. The serosa is violaceous and smooth. Two pieces of bowel are sutured side by side. Sectioning through the specimen reveals no abnormalities. Tool Storage Attendant sections are submitted in cassette (A1). B. The specimen, labeled "JW, abdomen keloid," is received in formalin and consists of two pieces of irregular shaped, unoriented skin tissue that in aggregate measure 6.5 x 0.8 x 0.8 cm. The skin surface is pink-fulton and folded. The specimen is inked and serially sectioned. Sectioning through the specimen is unremarkable. Tool Storage Attendant sections are submitted in cassette (B1). JS (under the direct supervision of a pathologist) PATIENT NAME: SHANE HORTON PATHOLOGY DATE OF : 71 REPORT #: [id number] PHYSICIAN: DEANNA PATHOLOGY PCP: RADHA SORIANO MD REPORT IS CONFIDENTIAL AND NOT TO BE RELEASED WITHOUT AUTHORIZATION [facility] [address], [place] [address] Signed After initial examination of the HE slides Dr. Hanson has requested additional sections of the anastomotic site. (A2-A3) Additional licensing representative sections of anastomotic site. AM The Gross Description was prepared using a voice recognition system. The report was reviewed for accuracy; however, sound-alike word errors, addition and/or deletions may occur. If there is any question about this report, please contact Client Services. PERFORMING LABORATORY: The technical component was performed by [facility], [address] [place] [id number] (Cost Control Specialist: Basia De La Garza MD; CLIA# [id number]). [facility], [address] [address] (Cost Control Specialist: Winston Esquivel MD; CLIA# [id number]). Diagnostician: Marilou Hanson MD Pathologist Electronically Signed 02/17/2019 Copies: ~ PATIENT NAME: SHANE HORTON PATHOLOGY DATE OF : 71 REPORT #: [id number] PHYSICIAN: DEANNA GRANADOS PCP: RADHA SORIANO MD REPORT IS CONFIDENTIAL AND NOT TO BE RELEASED WITHOUT AUTHORIZATION
--- NOTE | 2019-02-17 19:41 | NUR ---
PATIENT TOOK A SHOWER TODAY AND YESTERDAY.
== END 2019-02-17 13:06 | disposition home or self-care (01) ==
LOC: ED 23:52 → MS 23:53 → ED 02-15 01:52 → MS 02-17 13:06
PROVIDERS: ADMIT Surgery
PROC: 0DBB0ZZ Excision of Ileum, Open Approach (ICD-10-PCS; 2019-02-15)
PROC: 0DNB0ZZ Release Ileum, Open Approach (ICD-10-PCS; principal; 2019-02-15 03:00)
DX: K56.50 Intestinal adhesions [bands], unspecified as to partial versus complete obstruction (principal); D64.9 Anemia, unspecified; K56.2 Volvulus
CPT/HCPCS: 00790; 36415; 71045; 74177; 80053; 81001; 83690; 85025; 86850; 86900; 86901; 86920; 96361; 96375; 96376; 99285-25; A9270; G0378; J0131; J0330; J0690; J1100; J1170; J1885; J2270; J2405; J2704; J3010; J7030; J7121; Q0163; Q9967

== ENCOUNTER 2019-08-10 09:36 | Emergency (ER) | payer OTHER ==
[~2019-08-10] VITALS: Ht 182.9 cm; Wt 83.9 kg
[~2019-08-10 09:36] MED LIST: BENADRYL25 MG PO; CULTURELLE1 EACH PO; GABAPENTIN600 MG PO; HYDROCODON-ACE1 EA10 PO; IBUPROFEN600 MG PO; OMEPRAZOLE20 M1 PO; PAXIL10 MG PO; TYLENOL EXTRA500 MG PO
--- OUTSIDE RECORDS SUMMARY | 2019-08-10 09:40 | XMS ---
PreManage Notification: SHANE HORTON Security Dural Mechanic Events No recent Security Events currently on file CRITERIA MET - History of Sepsis Dx CARE PROVIDERS There are no care providers on record at this time. Jacquelyn has no Care Guidelines for this patient. Cami VISIT COUNT (12 MO.) 2 [facility] TOTAL 2 NOTE: Visits indicate total known visits. ED/C VISIT TRACKING (12 MO.) 08/10/2019 09:38 [facility] [place] TYPE: Emergency COMPLAINT: - ABNORMAL LAB RESULTS 02/14/2019 23:52 [facility] [place] TYPE: Emergency COMPLAINT: - POSS VOLVULUS INPATIENT VISIT TRACKING (12 MO.) 02/14/2019 23:53 [facility] [place] TYPE: Observation COMPLAINT: - SP DETORSION OF SMALL BOWEL, RESECTION OF ILEO DIAGNOSES: - Unspecified abdominal pain - Anemia, unspecified - Intestinal adhesions [bands], unspecified as to partial versu - Volvulus 10/17/2018 09:28 [facility] [place] TYPE: Surgery DIAGNOSES: - Colostomy status [email or web address]
[2019-08-10] MEDS ORDERED: LOPERAMIDE2 MG PO (09:56)
[2019-08-10] MEDS ORDERED: LAMICTAL XR200 MG PO (09:56)
== END 2019-08-10 11:28 | disposition home or self-care (01) ==
LOC: ED 09:36
DX: D50.9 Iron deficiency anemia, unspecified (principal); Z87.891 Personal history of nicotine dependence; Z79.899 Other long term (current) drug therapy
CPT/HCPCS: 85025; 85610; 85730; 86850; 86900; 86901; 86920; 99284

== ENCOUNTER 2020-04-12 19:06 | Emergency (ER) | payer OTHER ==
[~2020-04-12] VITALS: Ht 182.9 cm; Wt 86.2 kg
[~2020-04-12 19:06] MED LIST changes: +LAMICTAL XR200 MG PO; +LOPERAMIDE2 MG PO
--- OUTSIDE RECORDS SUMMARY | 2020-04-12 19:08 | XMS ---
PreManage Notification: SHANE HORTON Security Commissions Analyst Events No recent Security Events currently on file CRITERIA MET - History of Sepsis Dx CARE PROVIDERS IVANA MARS [facility] 08/11/2019-Current MANISH PHONE: [phone] Jacquelyn has no Care Guidelines for this patient. Cami VISIT COUNT (12 MO.) 2 [facility] TOTAL 2 NOTE: Visits indicate total known visits. 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
[2020-04-12] MEDS ORDERED: BACLOFEN10 MG PO (20:32)
== END 2020-04-12 22:59 | disposition home or self-care (01) ==
LOC: ED 19:06
DX: S16.1XXA Strain of muscle, fascia and tendon at neck level, initial encounter (principal); R20.2 Paresthesia of skin; W00.0XXA Fall on same level due to ice and snow, initial encounter; Z79.899 Other long term (current) drug therapy
CPT/HCPCS: 72125; 99284-25

== ENCOUNTER 2020-05-16 05:53 | Day surgery (SDC) | payer OTHER ==
[~2020-05-16] VITALS: Ht 180.3 cm; Wt 92.7 kg
[~2020-05-16 05:53] MED LIST changes: +BACLOFEN10 MG PO
--- NOTE | 2020-05-16 06:19 | NUR ---
SWABBED BOTH NARES FOR RAPID COVID TEST
--- NOTE | 2020-05-16 08:35 | NUR ---
05/16/20 0835 Lu [place] 0824- PT TO PACU IN LL POSITION. REPOSITIONS SELF IN BED FREQUENTLY/ . REPORTS PAIN IN THE THROAT AND ABDOMEN. ABDOMEN SOFT. PT RATES PAIN AT 8/10. PT ENCOURAGED TO LAY BACK IN THE BED, RELAX AND PASS GAS. BREATHING EASY AND UNLABORED. SPO2 >95% ON 3 L O2 VIA NC. 0832- PT CONTINUES TO REPORT LOWER CRAMPING PAIN. VSS. O2 TITRATED DOWN TO ROOM AIR. PT REPOSITIONED TO LEFT SIDE AND ENCOURAGED TO PASS GAS.
--- NOTE | 2020-05-16 11:42 | OR ---
[facility] [address], [place] [address] Signed DATE OF OPERATION: 05/16/2020 SURGEON: Shane Beckman MD PREOPERATIVE DIAGNOSES: 1. Anemia, unknown etiology. 2. 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 POSTOPERATIVE DIAGNOSES: 1. Normal upper endoscopy. 2. Small polyp of rectal remnant, normal appearing small bowel up to 70 cm. PROCEDURES: 1. Esophagogastroduodenoscopy with biopsy. 2. Colonoscopy with partial small bowel enteroscopy with biopsy. 3. Cold morcellation polypectomy of rectal polyp. ANESTHESIA: Intravenous sedation, propofol infusion; Ayush Marks CRNA. INDICATION: This 44-year-old man is a prisoner at [facility] and a patient of Mr. Jai NP and is referred for upper endoscopy and colonoscopy for anemia of unknown etiology. He has no hematemesis or blood per rectum. 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 During that hospitalization, he also developed C difficile colitis, which was fulminant ultimately requiring subtotal colectomy with ileorectal anastomosis. The patient has no hematemesis or blood per rectum currently. He is referred for upper endoscopy and colonoscopy to assess for a source of anemia. He understands the risks of bleeding, infection, and perforation related to upper endoscopy and colonoscopy and wished to proceed. FINDINGS: Upper endoscopy was essentially normal. There was no evidence of ulcer or neoplasm. No sign of gastritis. Esophagus was normal. CLOtest was negative 20 minutes postprocedure. Biopsies were taken of the duodenum to assess for celiac disease as well. On colonoscopy, there remained a rectal remnant and a small polyp was noted there was Electronically Signed By: SHANE BECKMAN MD 05/16/20 1142 PATIENT NAME: SHANE HORTON OPERATIVE REPORT DATE OF : 71 REPORT #: [id number] PHYSICIAN: SHANE BECKMAN MD PCP: KEDAR SAINZ NP REPORT IS CONFIDENTIAL AND NOT TO BE RELEASED WITHOUT AUTHORIZATION [facility] [address], [place] [address] Signed excised. The ileorectal anastomosis was widely patent. The colonoscope was passed as far as about 80 cm into the small bowel assessing for any lesion that would account for bleeding and none were found. DESCRIPTION OF PROCEDURE: The patient was brought to the surgical endoscopy suite, placed in lateral decubitus position after undergoing lidocaine hypopharyngeal spray anesthesia. He was given intravenous sedation with full cardiopulmonary monitoring and airway support. A bite block was placed. An Olympus video upper endoscope was passed in the hypopharynx. The vocal cords appeared normal. Scope was advanced to the esophagus, throughout its length it was normal, scope was passed to the stomach, which was insufflated with air. Rugal folds appeared normal. He had a transverse lie in the stomach, which was somewhat distorted in its anatomy, but not otherwise problematic. The antrum appeared normal. Pylorus was identified as normal. Scope passed through it into the duodenum, which was also normal. Biopsies were obtained to assess for celiac disease. There was no sign of ulceration or other abnormalities. The scope was withdrawn and biopsies were then taken of the antrum for both MADHURI and pathologic testing. Retroflexed view was undertaken showing a reasonably good flap valve. There was no sign of proximal gastritis or lesion of any sort. The scope was straightened and withdrawn in the distal esophagus. Biopsies were obtained even though it appeared normal. Biopsies were then taken in midesophagus as well. The remaining esophagus was normal. Plans were then made for colonoscopy. Digital rectal examination was found to be normal. The Olympus video colonoscope passed in the rectum. Irrigation was undertaken. The rectal remnant thoroughly examined and the ileorectal anastomosis identified approximately 15 cm from the anal verge. The anastomosis was widely patent. The scope was passed proximally as far as reasonably possible up to about 70 to 80 cm. The small bowel appeared normal. Biopsies were taken at the upper most portion to assess for occult inflammatory change. Careful withdrawal of scope showed no sign of abnormality. Within the rectal remnant, there was a small sessile polyp probably adenomatous, it was excised with cold morcellation technique. Retroflexed view was undertaken showing a very prominent dentate line likely related to the persistent ileal effluent through the anal canal and rectum, but without sign of ulceration or neoplastic change. There were some internal hemorrhoidal changes as well. The scope was removed and the patient was taken to the recovery room in good condition. CONCLUDING DIAGNOSIS: Anemia of uncertain etiology. PLAN: A cbc and other labs were noted in his paperwork that accompanied him from the Electronically Signed By: SHANE BECKMAN MD 05/16/20 1142 PATIENT NAME: SHANE HORTON ANTHONY OPERATIVE REPORT DATE OF : 71 REPORT #: [id number] PHYSICIAN: SHANE BECKMAN MD PCP: KEDAR SAINZ NP REPORT IS CONFIDENTIAL AND NOT TO BE RELEASED WITHOUT AUTHORIZATION [address] [address] Signed shelter today... the hct i 41.6... he is no longer anemic. On that basis, no need for additional testing ( ie celiac disease panel, etc ) will be necessary. We await the path reports from the biopsies performed, but most likely will not have underlying occult disease that would account fo anemia. As re the polyp, would repeat the colonoscopy in 5 years if the polyp is an adenoma. I will see him in follow up shelter clinic if desired by the [facility] staff... MD TRISHA Perez/MARIELLEL /[id number] cc: Mr. Jai NP Copies: ~ Electronically Signed By: SHANE BECKMAN MD 05/16/20 1142 PATIENT NAME: SHANE HORTON OPERATIVE REPORT DATE OF : 71 REPORT #: [id number] PHYSICIAN: SHANE BECKMAN MD PCP: KEDAR SAINZ NP REPORT IS CONFIDENTIAL AND NOT TO BE RELEASED WITHOUT AUTHORIZATION
== END 2020-05-16 09:15 | disposition home or self-care (01) ==
LOC: DS 05:53 → OPS 05:53 → DS 06:45 → OPS 09:15
PROVIDERS: ATTEND Surgery
PROC: 0DB58ZZ Excision of Esophagus, Via Natural or Artificial Opening Endoscopic (ICD-10-PCS; principal; 2020-05-16 06:45)
PROC: 0DBP8ZZ Excision of Rectum, Via Natural or Artificial Opening Endoscopic (ICD-10-PCS; 2020-05-16 06:45)
DX: D50.9 Iron deficiency anemia, unspecified (principal); K62.1 Rectal polyp; G81.91 Hemiplegia, unspecified affecting right dominant side; Z87.891 Personal history of nicotine dependence; Z90.49 Acquired absence of other specified parts of digestive tract; Z98.890 Other specified postprocedural states; Z86.19 Personal history of other infectious and parasitic diseases; Z20.822 Contact with and (suspected) exposure to COVID-19
CPT/HCPCS: C9803; J2001; J2704; J3010; J7121; U0003

== ENCOUNTER 2021-02-19 13:47 | Emergency (ER) | payer OTHER ==
[~2021-02-19] VITALS: Ht 182.9 cm; Wt 90.7 kg
== END 2021-02-19 22:34 | disposition home or self-care (01) ==
LOC: ED 13:47
DX: G97.1 Other reaction to spinal and lumbar puncture (principal); Z87.891 Personal history of nicotine dependence; Z79.899 Other long term (current) drug therapy
CPT/HCPCS: 99283; J7030

== ENCOUNTER 2021-10-31 06:05 | Day surgery (SDC) | payer OTHER ==
[~2021-10-31] VITALS: Ht 182.9 cm; Wt 90.9 kg
[2021-10-31] MEDS ORDERED: HYDROCODON-ACE1 EA10 PO (09:01)
[2021-10-31] MEDS ORDERED: IBUPROFEN600 MG PO (09:01)
[2021-10-31] MEDS ORDERED: ACETAMINOPHEN500 MG PO (09:02)
--- NOTE | 2021-11-01 11:07 | OR ---
[facility] [address] [place], [place] [address] Signed DATE OF OPERATION: 10/31/2021 SURGEON: Shane Beckman MD PREOPERATIVE DIAGNOSIS: Right inguinal hernia. POSTOPERATIVE DIAGNOSIS: Right indirect inguinal hernia. PROCEDURE: Repair of right indirect inguinal hernia with excision and ligation of indirect hernia sac and implantation of Prolene mesh in underlay technique. ANESTHESIA: General endotracheal, Leonard Rios, [employer] COORDINATOR and local 20 mL of 0.25% Marcaine with epinephrine. INDICATION: This 46-year-old man is a prisoner at [facility] and a patient of ARNIE Muniz. 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 He is referred for consideration of right inguinal hernia which has increased in size over the past year or so. A reducible right inguinal hernia is noted. He is admitted at this time to undergo repair of the right inguinal hernia. He understands the risk of bleeding, infection, recurrence, and other unforeseen complications including chronic pain. He understands and he wished to proceed. FINDINGS: A large ilioinguinal nerve branch was identified and well preserved throughout the operation and was not encumbered in the repair in anyway. A moderate-sized indirect hernia sac was noted. It was opened and there was no sign of sliding component or incarcerated hollow viscus. The hernia sac was excised. Repair of the floor was undertaken with implantation of Prolene mesh in an underlay technique. He tolerated the procedure well. DESCRIPTION OF PROCEDURE: The patient was brought to the operating room, given a general endotracheal anesthetic. Preoperative antibiotic Ancef was given. Sequential compression device stockings were used. The abdomen was prepared with a chlorhexidine solution after clipping in the lower abdomen. After sterile draping, an incision was made in the inguinal area above Electronically Signed By: SHANE BECKMAN MD 11/01/21 1107 PATIENT NAME: SHANE HORTON OPERATIVE REPORT DATE OF : 71 REPORT #: [id number] PHYSICIAN: SHANE BECKMAN MD PCP: KEDAR SAINZ NP REPORT IS CONFIDENTIAL AND NOT TO BE RELEASED WITHOUT AUTHORIZATION [facility] [address] [place], [place] [address] Signed the pubic tubercle along the line of skin tension. Dissection was carried through the subcutaneous tissue with electrocautery. Two large inferior epigastric type vessels were identified and secured with hemostats and ligated with 3-0 Vicryl ties. Additional dissection down to the external oblique was undertaken. External oblique was incised along its fibers revealing the underlying cord structures. A large ilioinguinal nerve branch was dissected free from the cremasteric muscle fibers and reflected laterally around the external oblique. The cord was mobilized from the floor and there was no sign of indirect hernia. Cord was encircled with a [place] drain. Using primarily blunt dissection, an indirect hernia sac was dissected free from the cord structures preserving them well. Once this hernia sac was freed entirely from the cord structures, it was incised and inspected internally. There was no sign of sliding component or incarcerated viscus. The base of the indirect sac was secured with 2-0 silk suture doubly applied and the redundant sac amputated and passed for pathology. An Allis clamp was applied to the tendon of the transversus abdominis. There definitely was attenuation of the internal ring and the floor itself. On that basis, the attenuated fibers of the fascia transversalis were incised with electrocautery and the properitoneal fat bluntly . The segment of Prolene mesh was cut to the appropriate configuration and secured in an underlay technique with interrupted 2-0 Prolene sutures. Care was taken to accommodate the cord structures and tails of graft were taken laterally taking additional care to avoid encumbrance of the ilioinguinal nerve branch. Hemostasis was good. A 20 mL of 0.25% Marcaine with epinephrine was injected locally. The cord was replaced into the canal as was the ilioinguinal nerve. The external oblique was reapproximated overall of this with running 2-0 Vicryl. Ronald layer was reapproximated with interrupted 2-0 Vicryl and skin closed with running subcuticular 3-0 Vicryl. Steri-Strips were applied as was an Acticoat dressing. The patient tolerated the procedure well. He was extubated in the operating room and taken to the recovery room in good condition. Sponge, needle, and counts were reported as correct x3. There were no complications. Shane Beckman MD JM/MODL /[id number] Electronically Signed By: SHANE BECKMAN MD 11/01/21 1107 PATIENT NAME: SOLSHANE ANTHONY OPERATIVE REPORT DATE OF : 71 REPORT #: [id number] PHYSICIAN: SHANE BECKMAN MD PCP: KEDAR SAINZ NP REPORT IS CONFIDENTIAL AND NOT TO BE RELEASED WITHOUT AUTHORIZATION [facility] [address] [place] [address] Signed cc: ARNIE Riggins Copies: ROMI COOPER ~ Electronically Signed By: SHANE BECKMAN MD 11/01/21 1107 PATIENT NAME: SHANE HORTON OPERATIVE REPORT DATE OF : 71 REPORT #: [id number] PHYSICIAN: SHANE BECKMAN MD PCP: KEDAR SAINZ NP REPORT IS CONFIDENTIAL AND NOT TO BE RELEASED WITHOUT AUTHORIZATION
== END 2021-10-31 10:38 | disposition home or self-care (01) ==
LOC: DS 06:05
PROVIDERS: ATTEND Surgery
PROC: 0YU50JZ Supplement Right Inguinal Region with Synthetic Substitute, Open Approach (ICD-10-PCS; principal; 2021-10-31 07:30)
DX: K40.90 Unilateral inguinal hernia, without obstruction or gangrene, not specified as recurrent (principal); Z86.73 Personal history of transient ischemic attack (TIA), and cerebral infarction without residual deficits; Z90.49 Acquired absence of other specified parts of digestive tract; Z86.59 Personal history of other mental and behavioral disorders; K21.00 Gastro-esophageal reflux disease with esophagitis, without bleeding
CPT/HCPCS: J0690; J1100; J1644; J1885; J2001; J2405; J2704; J3010; J7121